=== PATIENT | female | born 1955 | race Caucasian/White ===

== ENCOUNTER 2018-03-21 19:02 | Inpatient (IN) | payer OTHER ==
--- OUTSIDE RECORDS SUMMARY | 2018-03-21 19:05 | XMS REPORT | Summary of Care ---
:1955 Author Name LETY Emery ADEEL Address Unavailable Unavailable , Care Team Providers Name Role Phone JOANN Thopmson, MARYBETH Unavailable Unavailable CATHRYN [place], [place] Unavailable Unavailable MARCELO Thompson, CARMELO Unavailable Unavailable REYES GREENE, KANDACE SINGH Unavailable Unavailable Unavailable Unavailable Unavailable Functional Status Name Dates Details Functional status health issues are not documented Status: Name Dates Details Cognitive status health issues are not documented Status: Problems Name Dates Details Acute deep vein thrombosis of lower extremity (453.40, I82.409) Status: Active Joint pain of lower extremity (719.48, M25.50) Status: Active Urinary tract infection (599.0, N39.0) Status: Active Urinary tract infection (599.0, N39.0) Status: Active Colovesical fistula (596.1, N32.1) Status: Active Edema (782.3, R60.9) Status: Active Lumbar radiculopathy (724.4, M54.16) Status: Active Staph infection (041.10, B95.8) Status: Active Parathyroid adenoma (227.1, D35.1) Status: Active Hyperparathyroidism (252.00, E21.3) Status: Active Diabetes mellitus type 2, uncontrolled (250.02, E11.65) Status: Active Hypothyroidism, postsurgical (244.0, E89.0) Status: Active Hypercalcemia (275.42, E83.52) Status: Active Depressive disorder (311, F32.9) Status: Active Anxiety (300.00, F41.9) Status: Active Dietary iron deficiency anemia (280.1, D50.8) Status: Active Chronic kidney disease, stage IV (severe) (585.4, N18.4) Status: Active Pain in joint involving upper arm (719.42, M25.529) Status: Active Vitamin D insufficiency (268.9, E55.9) Status: Active Bilateral hand pain (729.5, M79.641) Status: Active Gout (274.9, M10.9) Status: Active Insomnia (780.52, G47.00) Status: Active End stage renal disease (585.6, N18.6) Status: Active Pre-op exam (V72.84, Z01.818) Status: Active Medications Name Dates Details Lisinopril 40 MG Oral Tablet TAKE 1 TABLET DAILY. Quantity: 90 Refills: 3 [place] LOCKETT M.D. Start : 25-Jun-2008 Active Furosemide 80 MG Oral Tablet TAKE 1 TABLET DAILY. Quantity: 90 Refills: 3 OH LOCKETT M.D. Start : 24-Oct-2009 Active MetOLazone 5 MG Oral Tablet TAKE ONE TABLET BY MOUTH ONCE DAILY Quantity: 30 Refills: 5 OH LOCKETT M.D. Start : 06-Aug-2011 Active DilTIAZem HCl ER Coated Beads 240 MG Oral Capsule Extended Release 24 Hour TAKE 1 CAPSULE DAILY. Quantity: 30 Refills: 3 OH LOCKETT M.D. Start : 27-Aug-2011 Active GlyBURIDE 5 MG Oral Tablet Take 10mg twice a day Quantity: 90 Refills: 3 CARMELO ROBERTSON M.D. Start : 27-Aug-2011 Active Escitalopram Oxalate 20 MG Oral Tablet TAKE 1 TABLET DAILY. Quantity: 90 Refills: 3 OH LOCKETT M.D. Start : 04-Mar-2012 Active ALPRAZolam 1 MG Oral Tablet TAKE 1 TABLET DAILY. Quantity: 30 Refills: 0 OH LOCKETT M.D. Start : 10-Nov-2012 Active Levothyroxine Sodium 112 MCG Oral Tablet TAKE 1 TABLET DAILY DIRECTED. Quantity: 90 Refills: 3 CARMELO ROBERTSON M.D. Start : 28-Feb-2015 Active Allopurinol 100 MG Oral Tablet TAKE ONE TABLET BY MOUTH DAILY Quantity: 30 Refills: 3 [place] LOCKETT M.D. Start : 14-Jul-2017 Active TraZODone HCl - 50 MG Oral Tablet TAKE 1 TABLET AT BEDTIME NEEDED FOR SLEEP. Quantity: 30 Refills: 0 OH LOCKETT M.D. Start : 16-Oct-2017 Active Gabapentin 100 MG Oral Capsule Refills: 0 Active Allergies and Adverse Reactions Name Dates Details No Known Drug Allergies (Allergy) Status: Active Past Medical History Name Dates Details History of chronic kidney disease (V13.09, Z87.448) Status: Resolved History of Diverticulitis (562.11, K57.92) Status: Resolved History of goiter (V12.29, Z86.39) Status: Resolved History of Celeste thyroiditis (V12.29, Z86.39) Status: Resolved History of hypertension (V12.59, Z86.79) Status: Resolved History of type 2 diabetes mellitus (V12.29, Z86.39) Status: Resolved Procedures Procedure Dates Details [[facility]] HEPATITIS B CORE AB TOTAL Date: 09-Nov-2017 [[facility]] HEPATITIS PANEL Date: 09-Nov-2017 [[facility]] HEPATITIS B SURFACE ANTIBODY (QUANT) Date: 09-Nov-2017 History of Thyroid Surgery Substernal Thyroidectomy Completed History of Thyroid Surgery Luiz-Thyroidectomy Left Lobe Completed History of Colostomy Completed History of Cholecystectomy Completed History of Hernia Repair Completed History of Laminectomy Lumbar Completed Immunization Name Dates Details Immunizations not documented Family History Name Dates Details Family history of thyroid disease (V18.19, Z83.49) Status: Active Name Dates Details Family history of chronic kidney disease (V18.69, Z84.1) Status: Active Name Dates Details Family history of type 2 diabetes mellitus (V18.0, Z83.3) Status: Active Name Dates Details Family history of chronic kidney disease (V18.69, Z84.1) Status: Active Name Dates Details Family history of type 2 diabetes mellitus (V18.0, Z83.3) Status: Active Social History Name Dates Details - Status: Name Dates Details Never smoker Vital Signs Date Test Result Details [id number] BP Systolic 101 mm[Hg] Status: Comments: Location: RUE; Position: Sitting BP Diastolic 66 mm[Hg] Status: Comments: Location: RUE; Position: Sitting Height 62 in Status: Weight 210.25 lb Status: Body Mass Index Calculated 38.46 kg/m2 Status: Body Surface Area Calculated 1.95 m2 Status: Temperature 97.7 f Status: Comments: Method: Oral Heart Rate 97 /min Status: Comments: Location: R Brachial Artery; Quality: Normal Respiration Rate 18 /min Status: Comments: Quality: Normal Results Date Description Value Details Results not documented Plan of Care Name Dates Details Planned Observations Planned Goals not documented Planned Encounters Appointment; JOANN, MARYBETH, M.D. On: 27-Dec-2017 9:00 Interventions Provided PlanMs. Yuriy has been seen and evaluated for permanent HD access.Patient will get Bilateral upper extremity Vein mapping.Patient to F/U in 2 weeks to discuss treatment plan and vascular study results. Instructions Name Dates Details Instructions not documented Encounters Appointment; OH LOCKETT M.D. On: 06-Feb-2016 14:45 Encounter Diagnosis: Problem not documented Appointment; [place] LOCKETT M.D. On: 07-May-2016 14:45 Encounter Diagnosis: Problem not documented Appointment; OH LOCKETT M.D. On: 11-Jun-2016 14:15 Encounter Diagnosis: Problem not documented Appointment; [place] LOCKETT M.D. On: 03-Sep-2016 14:30 Encounter Diagnosis: Problem not documented Appointment; FEDERICO CASTRO M.D. On: 15-Sep-2016 14:00 Encounter Diagnosis: Problem not documented Appointment; [place] LOCKETT M.D. On: 31-Dec-2016 14:30 Encounter Diagnosis: Problem not documented Appointment; OH LOCKETT M.D. On: 04-Mar-2017 14:15 Encounter Diagnosis: Problem not documented Appointment; OH LOCKETT M.D. On: 08-Jul-2017 14:45 Encounter Diagnosis: Problem not documented Appointment; OH LOCKETT M.D. On: 14-Oct-2017 15:00 Encounter Diagnosis: Problem not documented Appointment; MARYBETH DAVID M.D. On: 06-Dec-2017 10:45 Encounter Diagnosis: Problem not documented Appointment; TENISHA ELLISON On: 09-Dec-2017 12:00 Encounter Diagnosis: Problem not documented Appointment; MARYBETH DAVID M.D. On: 27-Dec-2017 9:00 Encounter Diagnosis: Problem not documented
--- OUTSIDE RECORDS SUMMARY | 2018-03-21 19:05 | XMS REPORT | Continuity of Care Document ---
:1955 Author Organization Interface Problems Problem Status Onset Date Classification Date Comments Source Reported Medications Medication Details Route Status Patient Ordering Order Source Instructions Provider Date Allergies, Adverse Reactions, Alerts Substance Category Reaction Severity Reaction Status Date Comments Source type Reported Immunizations Immunization Date Given Site Status Last Updated Comments Source Results Order Results Value Reference Date Interpretation Comments Source Name Range Vital Signs Vital Sign Value Date Comments Source Encounters Location Location Encounter Encounter Reason Attending ADM DC Status Source Details Type Number For Provider Date Date Visit Outpatient [id number] [place] 10[facility]14 [facility] [place] [facility] [id number] [facility] [place] Out[facility] [id number] [place] 12[place]16 [facility] [place] Outpatient [id number] [place] 12/30 Active [facility] [place] Outpatient [id number] [place] 01/19 Active [facility] [place] [facility] [id number] [facility]/03 Active [facility] [place] Outpatient [id number] [place] 02/24 [facility] [place] Procedures Procedure Code Date Perfomer Comments Source
[2018-03-21] MEDS ORDERED: ACETAMINOPHEN 325 MG TABLET ONE (19:57)
[2018-03-21] MEDS ORDERED: VANCOMYCIN 1 GM/250 ML BAG ONE (19:57)
[2018-03-21] MEDS ORDERED: PIPER/TAZO/NS 3.375gm 3.375 GM/100 ML BAG ONE (19:57)
[2018-03-21] MEDS ORDERED: NA CHLORIDE 0.9% 2,000 ML ONE (19:57)
[2018-03-21 20:12] LABS: Absolute Lymphocytes (CBC) 0.5 K/uL (0.7-4.9); Eosinophils % 0.1 % (0-4.4); MPV 8.4 fL (7.6-11.3); RBC Red Blood Cell Count 3.59 M/uL (3.86-4.86)
[2018-03-21 20:15] LABS: Absolute Monocytes 1.8 K/uL (0.1-1.3); Absolute Neutrophil 24.4 K/uL (1.8-8.0); Basophils % 0.2 % (0-1.3); Hematocrit 32.6 % (36.0-45.0); Lymphocytes % 1.8 % (15.3-44.8); MCH 29.8 pg (27.0-35.0); MCV 90.7 fL (80-100); Monocytes % 6.8 % (3.3-12.3)
[2018-03-21 20:16] LABS: Protime INR 1.64
[2018-03-21 20:32] LABS: Albumin 2.5 g/dL (3.4-5.0); Bilirubin Direct 0.1 mg/dL (0-0.2); Bilirubin Total 0.4 mg/dL (0.2-1.0); Potassium 3.7 mmol/L (3.5-5.1); Protein, Total 7.5 g/dL (6.4-8.2)
[2018-03-21 20:35] LABS: Blood Morphology Comment NOT SEEN (NOT SEEN); Platelet Estimate ADEQ
--- NOTE | 2018-03-21 21:02 | ER ---
Nurse's Notes [facility] Name: Danielle Yan Age: 62 yrs Sex: Female : 1955 Arrival Date: 03/21/2018 Time: 19:06 Bed 6 Private MD: Tomer Flores R Diagnosis: Severe sepsis without septic shock Presentation: 03/21 19:34 Presenting complaint: Patient states: she just completed dialysis and they told her to bb come to the ED because she has temperature, cough, chills, pt actively vomiting in triage. Transition of care: patient was not received from another setting of care. Onset of symptoms was March 14, 2018. Risk Assessment: Do you want to hurt yourself or someone else? Patient reports no desire to harm self or others. Initial Sepsis Screen: Does the patient meet any 2 criteria? Temp <36.0*C (96.8*F)) or > 38.3*C (100.4*F). HR > 90 bpm. Yes Does the patient have a suspected source of infection? Yes: Other: cough. Care prior to arrival: None. 19:34 Method Of Arrival: Wheelchair bb 19:34 Acuity: [place] 2 bb Triage Assessment: 19:37 General: Appears uncomfortable. Respiratory: Reports shortness of breath Onset: The ea symptoms/episode began/occurred gradually, the patient has mild shortness of breath. Historical: - Allergies: 19:41 No Known Allergies; bb - Home Meds: 19:41 Cartia XT 240 mg Oral cp24 1 cap once daily [Active]; escitalopram oxalate 20 mg Oral bb tab 1 tab once daily [Active]; gabapentin 100 mg oral cap [Active]; levothyroxine 112 mcg tab 2 tabs once daily [Active]; glimepiride 4 mg Oral tab 1 tab once daily [Active]; metolazone 5 mg Oral tab 1 tab once daily [Active]; Lasix 80 mg Oral tab 1 tab once daily [Active]; probenecid/colchichine [Active]; parsabiv 2.5 mg 3 x week post dialysis [Active]; Xanax 0.5 mg Oral tab 1 tab twice a day [Active]; allopurinol 100 mg Oral tab 1 tab once daily [Active]; - PMHx: 19:41 Diabetes - NIDDM; Gout; Hypertension; Hypothyroidism; PERIPHERAL NEUROPATHY; Renal bb Disease; - Immunization history:: Adult Immunizations up to date. - Social history:: Smoking status: Patient/guardian denies using tobacco. - Ebola Screening: : No symptoms or risks identified at this time. Screenin:12 Abuse screen: Denies threats or abuse. Nutritional screening: No deficits noted. ea Tuberculosis screening: No symptoms or risk factors identified. Fall Risk IV access (20 points). Assessment: 19:37 General: Appears uncomfortable, Behavior is cooperative, appropriate for age. Pain: ea Denies pain. Neuro: Level of Consciousness is awake, alert, obeys commands, Oriented to person, place, time, situation. Cardiovascular: Heart tones S1 S2 present Patient's skin is warm and dry. Respiratory: Airway is patent Respiratory effort is even, labored, Respiratory pattern is regular, symmetrical, Breath sounds are diminished bilaterally. in left posterior lower lobe, right posterior middle lobe and right posterior lower lobe Parent/caregiver reports the patient having shortness of breath cough that is non-productive, hacking, persistent. GI: Abdomen is round distended, Bowel sounds present X 4 quads. Abd is non tender X 4 quads. : No signs and/or symptoms were reported regarding the genitourinary system. EENT: No signs and/or symptoms were reported regarding the EENT system. Derm: Skin is clammy, Skin is flushed, Skin temperature is warm. Musculoskeletal: Circulation, motion, and sensation intact. 20:15 Reassessment: Patient and/or family updated on plan of care and expected duration. Pain ea level reassessed. Pt alert and oriented x 3. Respirations even and unlabored. Chest expansions even and symmetrical. Pt on O2 at 2 L , pt remains hypotensive, physician aware. Pt reports her bp is always low after dialysis. Family remains at bedside at this time. 22:40 Reassessment: Patient and/or family updated on plan of care and expected duration. Pain ea level reassessed. Pt alert and oriented x 3. Respirations even and unlabored. Chest expansions even and symmetrical. O2 at 2L per n/c tolerating well. Family remains at bedside. 23:34 Reassessment: Patient and/or family updated on plan of care and expected duration. Pain ea level reassessed. Pt alert and oriented x 3 respirations even and unlabored, chest expansions even and symmetrical. No s/s of pain or discomfort noted at this time. 23:36 Cardiovascular: Rhythm is sinus rhythm. ea 03/22 00:25 Reassessment: Patient and/or family updated on plan of care and expected duration. Pain ea level reassessed. Dr. Carrera at bedside updating pt on plan of care. 00:25 Reassessment: Patient and/or family updated on plan of care and expected duration. Pain ea level reassessed. Pt alert and oriented x 3. Respirations even and unlabored, chest expansions even and symmetrical. No s/s of pain or discomfort noted at this time. 01:10 Reassessment: Patient and/or family updated on plan of care and expected duration. Pain ea level reassessed. Patient is alert, oriented x 3, equal unlabored respirations, skin warm/dry/pink. Pt taken via stretcher accompanied by nurse to ICU on third. Bedside report given to receiving nurse. Pt alert and oriented x 4 respirations even and unlabored. Chest expansions even and symmetrical. Vital Signs: 03/21 19:41 BP 95 / 52; Pulse 124; Resp 20 S; Temp 102.8(O); Pulse Ox 94% on R/A; Weight 92.08 kg bb (R); Height 5 ft. 2 in. (157.48 cm) (R); Pain 0/10; 20:40 BP 93 / 57; Pulse 109; Resp 20; Temp 99.7(O); Pulse Ox 97% ; ea 21:20 BP 96 / 54 RA (man/); Pulse 99; Resp 20; Temp 99(O); Pulse Ox 97% on 2 lpm NC; ea 22:33 BP 92 / 58; Pulse 97; Resp 18; Temp 98.7(O); Pulse Ox 98% on 2 lpm NC; Pain 0/10; ea 23:10 BP 95 / 53; Pulse 97; Resp 20 S; Pulse Ox 98% on 2 lpm NC; Pain 0/10; ea 03/22 00:36 BP 96 / 54; Pulse 93; Resp 18; Temp 98.6; Pulse Ox 97% on 2 lpm NC; Pain 0/10; ea 03/21 19:41 Body Mass Index 37.13 (92.08 kg, 157.48 cm) bb ED Course: 03/21 19:06 Patient arrived in ED. mr 19:06 Tomer Flores MD is Private Physician. mr 19:24 Sukh Hayden MD is Attending Physician. gs 19:25 Latasha Alfredo, HENNY is Primary Nurse. ea 19:36 Triage completed. bb 19:37 Patient has correct armband on for positive identification. Bed in low position. Call ea light in reach. Side rails up X2. 19:41 Arm band placed on Patient placed in an exam room, on a stretcher, on playground monitor, bb on pulse oximetry. Family accompanied patient. 20:12 Inserted saline lock: 20 gauge in right antecubital area, using aseptic technique. ea Blood collected. 20:25 X-ray completed. Portable x-ray completed in exam room. Patient tolerated procedure jr1 well. 20:27 Chest Single View XRAY In Process Unspecified. EDMS 20:47 Notified ED physician of a critical lab result(s). lactate 2.5. fc 20:[address] nj 21:01 Ruthie Estes MD is Hospitalizing Provider. gs 21:07 CT completed. Patient tolerated procedure well. Patient moved back from CT. nj 21:08 CT Chest Wo Con In Process Unspecified. EDMS 21:[address] vm2 22:02 CT completed. Patient tolerated procedure well. Patient moved back from CT. 2 23:36 No provider procedures requiring assistance completed. Patient admitted, IV remains in ea place. Administered Medications: 19:55 Drug: NS 0.9% 1500 ml Route: IV; Rate: 1 bolus; Site: right antecubital; bb 23:12 Follow up: Response: No adverse reaction; IV Status: Completed infusion; IV Intake: ea 1500ml 20:00 Drug: Tylenol 650 mg Route: PO; bb 22:59 Follow up: Response: No adverse reaction; Marked relief of symptoms ea 20:05 Drug: Zosyn 3.375 grams Route: IVPB; Infused Over: 60 mins; Site: right antecubital; bb 21:05 Follow up: Response: No adverse reaction; IV Status: Completed infusion ea 21:04 Drug: vancoMYCIN 1 grams Route: IVPB; Infused Over: 2 hrs; Site: right antecubital; ea 23:12 Follow up: Response: No adverse reaction; IV Status: Completed infusion; IV Intake: ea 250ml Intake: 23:12 IV: 250ml; Total: 250ml. ea 23:12 IV: 1500ml; Total: 1750ml. ea Outcome: 21:02 Decision to Hospitalize by Provider. gs 22:00 Instructed on the need for admit, Demonstrated understanding of instructions. ea 03/22 01:10 Admitted to ICU accompanied by nurse, via stretcher, room 2, with oxygen, on monitor, ea with chart, Report called to Receiving nurse in ICU on third floor. Condition: stable 01:31 Patient left the ED. ea Signatures: Dispatcher [employer] EDFL Princess Ferro, Edwige 1 Clotilde Gonzalez, RN RN Jessica Haynes RN RN Iftikhar Smith Victoria vm2 Antunez, Elena, RN RN ea Starr, MD MD valentina Luz Corrections: (The following items were deleted from the chart) 03/21 19:40 19:37 Respiratory: Airway is patent Respiratory effort is even, labored, Respiratory ea pattern is regular, symmetrical, Breath sounds are diminished bilaterally. in left posterior lower lobe, right posterior middle lobe and right posterior lower lobe ea 22:41 19:39 General: Reports fever for ea ea 03/22 01:30 00:36 BP 96 / 54; Pulse 93bpm; Resp 18bpm; Pulse Ox 97% 2 lpm Nasal Cannula; Pain 0/10; ea ea
--- NOTE | 2018-03-21 21:02 | EDPHYS ---
Physician Documentation [facility] Name: Danielle Yan Age: 62 yrs Sex: Female : 1955 Arrival Date: 03/21/2018 Time: 19:06 Bed 6 Private MD: Tomer Flores R ED Physician Sukh Hayden HPI: 03/21 20:57 This 62 yrs old Female presents to ER via Wheelchair with complaints of gs Cough, Breathing Difficulty. 20:57 Onset: The symptoms/episode began/occurred 3 day(s) ago. Modifying factors: there are gs no obvious modifying factors. Associated signs and symptoms: Pertinent positives: altered mental status,\E\ chills, cough, decreased appetite. Severity of symptoms: At their worst the symptoms were severe in the emergency department the symptoms are unchanged. The patient has not experienced similar symptoms in the past. Historical: - Allergies: 19:41 No Known Allergies; bb - Home Meds: 19:41 Cartia XT 240 mg Oral cp24 1 cap once daily [Active]; escitalopram oxalate 20 mg Oral bb tab 1 tab once daily [Active]; gabapentin 100 mg oral cap [Active]; levothyroxine 112 mcg tab 2 tabs once daily [Active]; glimepiride 4 mg Oral tab 1 tab once daily [Active]; metolazone 5 mg Oral tab 1 tab once daily [Active]; Lasix 80 mg Oral tab 1 tab once daily [Active]; probenecid/colchichine [Active]; parsabiv 2.5 mg 3 x week post dialysis [Active]; Xanax 0.5 mg Oral tab 1 tab twice a day [Active]; allopurinol 100 mg Oral tab 1 tab once daily [Active]; - PMHx: 19:41 Diabetes - NIDDM; Gout; Hypertension; Hypothyroidism; PERIPHERAL NEUROPATHY; Renal bb Disease; - Immunization history:: Adult Immunizations up to date. - Social history:: Smoking status: Patient/guardian denies using tobacco. - Ebola Screening: : No symptoms or risks identified at this time. ROS: 20:57 All other systems are negative. gs Exam: 20:57 Head/Face: Normocephalic, atraumatic. Eyes: Pupils equal round and reactive to light, gs extra-ocular motions intact. Lids and lashes normal. Conjunctiva and sclera are non-icteric and not injected. Cornea within normal limits. Periorbital areas with no swelling, redness, or edema. ENT: Nares patent. No nasal discharge, no septal abnormalities noted. Tympanic membranes are normal and external auditory canals are clear. Oropharynx with no redness, swelling, or masses, exudates, or evidence of obstruction, uvula midline. Mucous membranes moist. Neck: Trachea midline, no thyromegaly or masses palpated, and no cervical lymphadenopathy. Supple, full range of motion without nuchal rigidity, or vertebral point tenderness. No Meningismus. Chest/axilla: Normal chest wall appearance and motion. Nontender with no deformity. No lesions are appreciated. 20:57 Abdomen/GI: Soft, non-tender, with normal bowel sounds. No distension or tympany. No guarding or rebound. No evidence of tenderness throughout. Back: No spinal tenderness. No costovertebral tenderness. Full range of motion. Skin: Warm, dry with normal turgor. Normal color with no rashes, no lesions, and no evidence of cellulitis. MS/ Extremity: Pulses equal, no cyanosis. Neurovascular intact. Full, normal range of motion. Neuro: Awake and alert, GCS 15, oriented to person, place, time, and situation. Cranial nerves II-XII grossly intact. Motor strength 5/5 in all extremities. Sensory grossly intact. Cerebellar exam normal. Normal gait. 20:57 Constitutional: The patient appears alert, awake, in obvious distress, severely distressed. 20:57 Cardiovascular: Rate: tachycardic, Rhythm: regular, Pulses: no pulse deficits are appreciated, Heart sounds: normal. 20:57 Cardiovascular: Pulses: thready. 20:57 Respiratory: mild respiratory distress is noted, Respirations: tachypnea, Breath sounds: rhonchi, that are mild, are scattered. Vital Signs: 19:41 BP 95 / 52; Pulse 124; Resp 20 S; Temp 102.8(O); Pulse Ox 94% on R/A; Weight 92.08 kg bb (R); Height 5 ft. 2 in. (157.48 cm) (R); Pain 0/10; 20:40 BP 93 / 57; Pulse 109; Resp 20; Temp 99.7(O); Pulse Ox 97% ; ea 21:20 BP 96 / 54 RA (man/); Pulse 99; Resp 20; Temp 99(O); Pulse Ox 97% on 2 lpm NC; ea 22:33 BP 92 / 58; Pulse 97; Resp 18; Temp 98.7(O); Pulse Ox 98% on 2 lpm NC; Pain 0/10; ea 23:10 BP 95 / 53; Pulse 97; Resp 20 S; Pulse Ox 98% on 2 lpm NC; Pain 0/10; ea 03/22 00:36 BP 96 / 54; Pulse 93; Resp 18; Temp 98.6; Pulse Ox 97% on 2 lpm NC; Pain 0/10; ea 03/21 19:41 Body Mass Index 37.13 (92.08 kg, 157.48 cm) bb MDM: 03/21 19:41 Patient medically screened. gs 20:57 Differential diagnosis: viral Infection, bacterial infection, pneumonia sepsis, septic gs shock. Data reviewed: vital signs, nurses notes. Response to treatment: the patient's symptoms have mildly improved after treatment, and as a result, I will admit patient. Physician consultation: Ruthie Estes MD and will see patient in ED. 03/21 19:43 Order name: Basic Metabolic Panel; Complete Time: 20:36 03/21 19:43 Order name: Blood Culture Adult (2) gs 03/21 19:43 Order name: CBC with Diff; Complete Time: 20:36 03/21 19:43 Order name: Lactate; Complete Time: 20:50 03/21 19:43 Order name: LFT's; Complete Time: 20:36 03/21 19:43 Order name: Lipase; Complete Time: 20:36 03/21 19:43 Order name: Procalcitonin; Complete Time: 20:50 03/21 19:43 Order name: Protime (+inr); Complete Time: 20:36 03/21 19:43 Order name: Troponin (emerg Dept Use Only); Complete Time: 20:36 03/21 19:43 Order name: Chest Single View XRAY; Complete Time: 10:15 03/21 20:19 Order name: Manual Differential; Complete Time: 20:36 EDMS 03/21 20:36 Order name: CT Chest Wo Con; Complete Time: 10:15 03/21 21:24 Order name: CT Abd/Pelvis - W/Contrast tw4 03/21 19:43 Order name: Accucheck; Complete Time: 21:00 03/21 19:43 Order name: Cardiac monitoring; Complete Time: 20:12 03/21 19:43 Order name: EKG - Nurse/Tech; Complete Time: 20:12 03/21 19:43 Order name: IV Saline Lock - Large Bore; Complete Time: 20:16 03/21 19:43 Order name: Labs collected and sent; Complete Time: 20:16 03/21 19:43 Order name: O2 Per Protocol; Complete Time: 20:16 03/21 19:43 Order name: O2 Sat Monitoring; Complete Time: 20:16 gs Administered Medications: 19:55 Drug: NS 0.9% 1500 ml Route: IV; Rate: 1 bolus; Site: right antecubital; bb 23:12 Follow up: Response: No adverse reaction; IV Status: Completed infusion; IV Intake: ea 1500ml 20:00 Drug: Tylenol 650 mg Route: PO; bb 22:59 Follow up: Response: No adverse reaction; Marked relief of symptoms ea 20:05 Drug: Zosyn 3.375 grams Route: IVPB; Infused Over: 60 mins; Site: right antecubital; bb 21:05 Follow up: Response: No adverse reaction; IV Status: Completed infusion ea 21:04 Drug: vancoMYCIN 1 grams Route: IVPB; Infused Over: 2 hrs; Site: right antecubital; ea 23:12 Follow up: Response: No adverse reaction; IV Status: Completed infusion; IV Intake: ea 250ml Disposition: 03/21/18 21:02 Hospitalization ordered by Ruthie Estes for Inpatient Admission. Preliminary diagnosis is Severe sepsis without septic shock. - Bed requested for Intensive Care Unit. - Status is Inpatient Admission. ea - Condition is Stable. - Problem is new. - Symptoms have improved. UTI on Admission? No Critical care time excluding procedures: 20:57 Critical care time: Bedside Care: 10 minutes, Consultation: 10 minutes, Family gs Intervention: 10 minutes. Total time: 30 minutes Signatures: Dispatcher [employer] Jessica Dumont RN RN bb Thompson, Moriah mt Antunez, Elena, RN RN ea Starr, Gregory, MD MD gs Corrections: (The following items were deleted from the chart) 22:21 21:02 Hospitalization Ordered by Ruthie Estes MD for Inpatient Admission. Preliminary mt diagnosis is Severe sepsis without septic shock. Bed requested for Intensive Care Unit. Status is Inpatient Admission. Condition is Stable. Problem is new. Symptoms have improved. UTI on Admission? No. gs 03/22 01:31 03/21 22:21 03/21/2018 21:02 Hospitalization Ordered by Ruthie Estes MD for Inpatient ea Admission. Preliminary diagnosis is Severe sepsis without septic shock. Bed requested for Intensive Care Unit. Status is Inpatient Admission. Condition is Stable. Problem is new. Symptoms have improved. UTI on Admission? No. mt
--- NOTE | 2018-03-21 21:31 | RAD REPORT ---
EXAM DESCRIPTION: CT - Thorax Wo Con - 03/21/2018 9:08 pm CLINICAL HISTORY: sob and cough COMPARISON: 2011 TECHNIQUE: Computed axial tomography of the chest was obtained. Contrast was not requested. All CT scans are performed using dose optimization technique as appropriate and may include automated exposure control or mA/KV adjustment according to patient size. FINDINGS: The evaluation of mediastinum, alexandre and vessels is limited secondary to lack of IV contras t administration. The lungs are essentially clear. A 5.9 x 2.2 centimeter low-density mass is present within the aorticopulmonary window. The Hounsfield unit equals 3. It is minimally decreased in size. A pleural effusion is not present. A pericardial effusion is not seen. Portal vein air is present. Air is also visualized within other splanchnic veins of the upper abdomen . IMPRESSION: Portal vein and splanchnic vein air may indicate bowel ischemia No acute abnormality involving the chest is seen The examination was discussed with Dr. Razo in the emergency room at 9:20 p.m. March 21, 2008 pain
--- NOTE | 2018-03-21 21:42 | RAD REPORT ---
EXAM DESCRIPTION: Lisandrat Single View03/21/2018 8:28 pm CLINICAL HISTORY: Shortness of breath COMPARISON: 2014 FINDINGS: The lungs appear clear of acute infiltrate. The heart is normal size. A central venous catheter has its tip in the superior vena cava. A left mediastinal mass is unchanged. CT demonstrates this to likely represent a benign cyst
[2018-03-22] MEDS ORDERED: MAGNESIUM HYDROXIDE 8% 30 ML PO PRN (00:20)
[2018-03-22] MEDS ORDERED: ACETAMINOPHEN 500 MG TAB PO PRN (00:20)
[2018-03-22] MEDS ORDERED: FENTANYL CITR 100 MCG/2 ML IV PRN (00:36)
[2018-03-22] MEDS ORDERED: NA CHLORIDE 0.9% 1,000 ML IV SCH (01:00)
[2018-03-22] MEDS: METRONIDAZOLE 500mg IVPB 500 MG/100 ML BAG IV SCH ×2 (01:47→09:13)
[2018-03-22 01:52] VITALS: BMI 37.8
[2018-03-22] MEDS ORDERED: Levofloxacin 250mg IV 250 MG/50 ML BAG IV SCH (03:00)
[2018-03-22 05:52] LABS: Blood Gas Oxyhemoglobin 96.7 % (94-97)
--- NOTE | 2018-03-22 06:58 | P.HP ---
Certification for Inpatient Patient admitted to: Inpatient With expected LOS: >2 Midnights Patient will require the following post-hospital care: None Practitioner: I am a practitioner with admitting privileges, knowledge of patient current condition, hospital course, and medical plan of care. Services: Services provided to patient in accordance with Admission requirements found in Title 42 Section 412.3 of the Code of Federal Regulations Patient History Date of Service: 03/21/18 Reason for admission: Sepsis; cough; fever History of Present Illness: Patient is a 62-year-old female has a history of factor V Leiden, end-stage renal disease, type 2 diabetes, hypertension, history of colovesical fistula status post repair who presented to the emergency room with fever, cough, and congestion. Patient was getting hemodialysis in her blood pressure was found to be low. She was sent to the emergency room for further evaluation. In the emergency room she was found have a leukocytosis as well as a lactic acidosis. Initial feeling was that patient may have a pneumonia. Patient had a CT of the chest which did not reveal an infiltrate but did reveal air within the portal venous system. This was followed by a CT of the abdomen and pelvis. This was read by our [employer] service(radiologist thatprovide coverage) as a ventral hernia and questionable colitis around the transverse segment. Patient does not have any abdominal pain. Patient denies any nausea or vomiting. Patient did have some diarrhea within the last 24 hr but denies any blood or pain. Spoke with General surgery and at this time will continue with IV antibiotics and reassess in the next 24-48 hrs. Will monitor in the intensive care unit and will get Nephrology consultation as well as GI evaluation. Patient is on Eliquis because of her factor 5. In case of surgery we may want switch this to a heparin drip. Will speak with Nephrology regarding the plan of care. Allergies No Known Allergies Allergy (Verified 03/22/18 01:54) Home Medications: Alprazolam [Xanax] 0.5 mg PO BID 05/03/12 Escitalopram Oxalate [Lexapro] 20 mg PO DAILY 05/03/12 Metolazone [Zaroxolyn] 5 mg PO DAILY 05/03/12 Allopurinol 100 mg PO DAILY 03/22/18 Apixaban [Eliquis *] 1 tab PO DAILY 03/22/18 Colchicine/Probenecid [Probenecid-Colchicine Tabs] 1 tab PO DAILY 03/22/18 Diltiazem HCl [Cartia Xt] 240 mg PO DAILY 03/22/18 Etelcalcetide Hydrochloride [Parsabiv] 2.5 mg IV M,W,F 03/22/18 Furosemide 120 mg PO DAILY 03/22/18 Gabapentin [Neurontin*] 300 mg PO BID 03/22/18 Glimepiride [Amaryl] 8 mg PO DAILY 03/22/18 Levothyroxine [Synthroid] 224 mcg PO [id number] 03/22/18 - Past Medical/Surgical History Has patient received pneumonia vaccine in the past: Yes Diabetic: Yes -: HD -: NIDDM -: HTN -: Gout -: Hypothyroid -: Peripheral neuropathy -: BLE DVT 2010 and 2011 -: Renal Disease -: Thyroidectomy -: Choleycystectomy -: Carpal Tunnel -: Laminectomy -: Umbilical Hernia repair x2 -: Partial COlectomy- Bladder repair for rectovesical fistula -: Colostomy (and reversal) -: Spinal FUsion, Heel spurs BLE - Family History Mother Medical History: Heart disease, Hypertension, Diabetes, Kidney disease Sister Medical History: Hypertension - Social History Smoking Status: Never smoker Alcohol use: No CD- Drugs: No Caffeine use: Yes Place of Residence: Home Review of Systems 10-point ROS is otherwise unremarkable Physical Examination - Vital Signs Temperature: 98 F Blood Pressure: 110/56 Pulse: 90 Respirations: 19 Pulse Ox (%): 98 - Physical Exam General: Alert, In no apparent distress, Oriented x3 HEENT: Atraumatic, PERRLA, Mucous membr. moist/pink, EOMI, Sclerae nonicteric Neck: Supple, 2+ carotid pulse no bruit, No LAD, Without JVD or thyroid abnormality Respiratory: Clear to auscultation bilaterally, Normal air movement Cardiovascular: Regular rate/rhythm, Normal S1 S2, No murmurs Gastrointestinal: Normal bowel sounds, Soft and benign, Non-distended, No tenderness Musculoskeletal: No clubbing, No swelling, No tenderness Integumentary: No rashes Neurological: Normal gait, Normal speech, Normal tone, Sensation intact, Cranial nerves 3-12 intact, Normal affect, Abnormal strength Lymphatics: No axilla or inguinal lymphadenopathy - Studies Laboratory Data (last 24 hrs) 03/21/18 20:00: PT 19.4 H, INR 1.64 03/21/18 20:00: WBC 26.7 H*, Hgb 10.7 L, Hct 32.6 L, Plt Count 313 03/21/18 20:00: Sodium 134 L, Potassium 3.7, BUN 31 H, Creatinine 3.40 H, Glucose 237 H, Total Bilirubin 0.4, AST 15, ALT 20, Alkaline Phosphatase 160 H, Lipase 70 L Assessment & Plan - Problems (Diagnosis) (1) End stage renal disease Onset Date: 03/22/18 Status: Acute (2) Hypertension Onset Date: 03/22/18 Status: Acute (3) Type 2 diabetes mellitus Onset Date: 03/22/18 Status: Acute (4) Status post partial resection of colon Onset Date: 03/22/18 Status: Acute (5) Leukocytosis Onset Date: 03/22/18 Status: Acute (6) Lactic acidosis Onset Date: 03/22/18 Status: Acute (7) Factor V Leiden Onset Date: 03/22/18 Status: Acute (8) Ischemic colitis Status: Acute (9) Ventral hernia Status: Acute - Plan Plan: 1. Continue with gentle IV hydration 2. Continue with IV antibiotics 3. Continue with meds for upper respiratory infection 4. NPO 5. GI & general surgery consultation; 6. Serial H&H, and we will monitor CBC, BMP, LFTs, procalcitonin, repeat lactate in 2 hr, and lipase along with electrolytes. 7. GI and DVT prophylaxis Discharge Plan: Home Plan to discharge in: Greater than 2 days - Advance Directives Does patient have a Living Will: No Does patient have a Durable POA for Healthcare: No - Code Status/Comfort Care Code Status Assessed: Yes Code Status: Full Code Critical Care: No Time Spent Managing PTS Care (In Minutes): 55
--- NOTE | 2018-03-22 07:10 | P.CNS ---
Date of Consult: 03/22/18 PC: This 62-year-old female presented to the emergency room with 3 day history of cough for diagnosis and treatment. HPC: Patient option feeling well for last 2 days. Has had a productive cough. States that she has not had any abdominal pain, is a dialysis patient and tolerated it well the other day. PMH: Diabetes, gout, end-stage renal disease hypertension PSHx: Previous exploratory laparotomies and hernia repairs SOC: No known allergies, medications reviewed reviewed O/E awake alert vital signs are stable, interactive is designed appear in any distress, asking for food HEENT:, not jaundiced Chest: Chest movement equal bilaterally ABD: Abdomen is soft, nontender, no guarding or rebound LOCO: Intact DATA: White cell count, CT scan of concern for showing air in the portal system , no evidence of any vascular compromise at the moment, IMPRESSION: CT scan demonstrates air in the portal system. Obvious of concern for ischemic or on known infection. However the patient's exam at the current time shows a benign abdomen, no evidence of any guarding rebound or tenderness PLAN: Patient was admitted, she was hypotensive at the initial exam with and received IV fluids. At the current time she appears to be stable. Will continue the keep her NPO as we observe her over the 1st 24 hr apart fractures some water. 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 At the current time, no indication for surgical intervention.
[2018-03-22 07:50] LABS: Absolute Lymphocytes (CBC) 1.8 K/uL (0.7-4.9); Absolute Monocytes 1.7 K/uL (0.1-1.3); Absolute Neutrophil 20.4 K/uL (1.8-8.0); Basophils % 0.3 % (0-1.3); Eosinophils % 0.1 % (0-4.4); Hematocrit 29.1 % (36.0-45.0); Lymphocytes % 7.4 % (15.3-44.8); MCH 29.3 pg (27.0-35.0); MCV 91.4 fL (80-100); MPV 8.7 fL (7.6-11.3); RBC Red Blood Cell Count 3.18 M/uL (3.86-4.86)
[2018-03-22] MEDS: ONDANSETRON 4 MG/2 ML VIAL IV PRN ×2 (07:55→13:29)
[2018-03-22 08:13] LABS: Albumin 2.2 g/dL (3.4-5.0); Bilirubin Total 0.2 mg/dL (0.2-1.0); Magnesium 2.1 mg/dL (1.8-2.4); Phosphorus 4.4 mg/dL (2.5-4.9); Potassium 4.1 mmol/L (3.5-5.1); Protein, Total 6.5 g/dL (6.4-8.2)
--- NOTE | 2018-03-22 08:35 | RAD REPORT ---
EXAM DESCRIPTION: CT - Abdomen Pelvis W Contrast - 03/22/2018 7:15 am CLINICAL HISTORY: Abdominal pain with vomiting COMPARISON: CT chest March 21, [address] abdomen TECHNIQUE: Computed axial tomography of the abdomen pelvis was obtained. 100 cc Isovue-300 was admin istered intravenously. Oral contrast was not requested which limits evaluation of bowel. A preliminary report was generated by [employer] 8 and reviewed prior to this dictation All CT scans are performed using dose optimization technique as appropriate and may include automated exposure control or mA/KV adjustment according to patient size. FINDINGS: Portal vein gas and splanchnic venous gas is again demonstrated. The gallbladder has been removed. A sub centimeter lesion within the spleen is nonspecific. The pancreas and adrenals are unremarkable. Small renal cysts are present. A 9 x 3.5 centimeter structure is present within the anterior abdominal wall of the lower abdomen/upp er pelvis. It contains fluid and air. Small bowel abuts the anterior abdominal wall in this region. The wall of a portion of transverse colon is thickened. Pneumatosis intestinalis is not seen. An intra-abdominal abscess is not noted. The appendix is normal. There is no evidence of diverticulit is. IMPRESSION: Portal and splenic venous air could be secondary to bowel ischemia perhaps the transvers e colon given the thickened wall. 9 x 3.5 centimeter structure within the anterior abdominal wall of the lower abdomen/ upper pelvis ma y represent an abscess which results in the venous air. Another consideration is that the 9 x 3.5 wilmer timeter structure represents a ventral hernia containing strangulated bowel. A CT scan with oral cont rast would be helpful to distinguish between the 2 possibilities. The exam was discussed with Dr. Flores 8:20 a.m. March 22, 2018
[2018-03-22 08:44] LABS: Platelet Estimate INCR; Toxic Granulation 1+; Urine White Blood Cell Casts OK
[2018-03-22 08:45] LABS: Blood Morphology Comment NOT SEEN (NOT SEEN)
[2018-03-22] MEDS ORDERED: ALPRAZOLAM 1 MG TABLET PO SCH (09:00)
[2018-03-22] MEDS ORDERED: ALLOPURINOL 100 MG TAB PO SCH (09:00)
[2018-03-22] MEDS ORDERED: GABAPENTIN 300 MG CAP PO SCH (09:00)
[2018-03-22] MEDS ORDERED: COLCHICINE PO SCH (09:00)
[2018-03-22] MEDS ORDERED: ESCITALOPRAM 20 MG TAB PO SCH (09:00)
[2018-03-22] MEDS ORDERED: PROBENECID PO SCH (09:00)
[2018-03-22] MEDS ORDERED: PROMETHAZINE 25 MG/ML VIAL IV PRN (09:58)
[2018-03-22 10:14] VITALS: O2SAT 98
--- NOTE | 2018-03-22 12:25 | RAD REPORT ---
EXAM DESCRIPTION: CT - Abdomen Pelvis Wo Contrast - 03/22/2018 11:18 am CLINICAL HISTORY: Abdominal pain. f/u abnl CT COMPARISON: Abdomen Pelvis W Contrast dated 03/21/2018; CT ABDOMEN PELVIS WO CONTRAST dated 5; CTSTONE PROTOCOL dated 05/07/2015; CT ABDOMEN PELVIS WO CONTRAST dated 10/08/2014 TECHNIQUE: CT imaging of the abdomen and pelvis was performed without contrast. Solid organ and vasc ular assessment is limited due to lack of IV contrast. All CT scans are performed using dose optimization technique as appropriate and may include automated exposure control or mA/KV adjustment according to patient size. FINDINGS: Subsegmental atelectasis is present in both posterior lung bases. Previously noted portal venous gas in the liver has resolved.Cholecystectomy is noted. The liver, spl een, pancreas, right adrenal gland are normal. Nodularity of the left adrenal gland is present. Small low-density lesion in the inferior anterior right kidney measuring 13 mm seen. No hydronephrosis. Significant thickening of the stomach is seen. Transverse colon demonstrates marked asymmetric wall t hickening with subtle air bubbles noted within the wall compatible with pneumatosis coli. Focal 9 x 4 cm oblong fluid collections containing air in the anterior midline abdomen do not show evidence of o ral contrast, likely representing subcutaneous abscesses. No bowel obstruction identified. The append ix is normal. Hardware is in place in the lumbar spine. IMPRESSION: Ischemic colitis of the transverse colon is suspected with asymmetric pneumatosis seen. Portal venous gas previously noted has resolved. Focal anterior abdominal wall abscesses, multiloculated, measuring in totality 9 x 4 cm again noted. A limited non-contrast examination was performed as detailed.
--- NOTE | 2018-03-22 15:21 | ECHO ---
HEIGHT: 5 ft 2 in WEIGHT: 206 lb 9 oz DATE OF STUDY: 03/22/[address]: Osman Gaviria MD 2-DIMENSIONAL: YES M.MODE: YES DOPPLER: YES COLOR FLOW: YES TDS: PORTABLE: YES DEFINITY: BUBBLE STUDY: DIAGNOSIS: PREOP CARDIAC HISTORY: CATHERIZATION: NO SURGERY: NO PROSTHETIC VALVE: NO PACEMAKER: NO MEASUREMENTS (cm) DIASTOLIC (NORMALS) SYSTOLIC (NORMALS) IVSd 1.2 (0.6-1.2) LA Diam 3.9 (1.9-4.0) LVEF 61% LVIDd 3.6 (3.5-5.7) LVIDs 2.5 (2.0-3.5) %FS 32% LVPWd 1.2 (0.6-1.2) Ao Diam 2.7 (2.0-3.7) 2 DIMENSIONAL ASSESSMENT: RIGHT ATRIUM: NORMAL LEFT ATRIUM: NORMAL RIGHT VENTRICLE: NORMAL LEFT VENTRICLE: NORMAL TRICUSPID VALVE: NORMAL MITRAL VALVE: MITRAL ANNULAR CALCIFICATION PULMONIC VALVE: NORMAL AORTIC VALVE: NORMAL PERICARDIAL EFFUSION: NONE AORTIC ROOT: NORMAL LEFT VENTRICULAR WALL MOTION: NORMAL DOPPLER/COLOR FLOW: MITRAL REGURGITATION AND TRICUSPID REGURGITATION COMMENTS: MILD MITRAL REGURGITATION AND TRICUSPID REGURGITATION. MITRAL ANNULAR CALCIFICATION. NORMAL LEFT VENTRICULAR SIZE AND FUNCTION. NO WALL MOTION ABNORMALITY. NO EFFUSION. TECHNOLOGIST: ALVA PASCUAL
--- NOTE | 2018-03-22 15:37 | EKG ---
Test Date: 2018-03-21 Test Time: 20:06:13 Corrective Therapy Aide Teacher: RUMA MEASUREMENT RESULTS: Intervals: Rate: 115 FL: 148 QRSD: 80 QT: 318 QTc: 439 [place]: P: 62 FL: 148 QRS: 191 T: 46 INTERPRETIVE STATEMENTS: Sinus tachycardia with premature atrial complexes Right ventricular hypertrophy Lateral infarct, age undetermined Abnormal ECG Compared to ECG 04/18/2017 01:07:03 Atrial premature complex(es) now present Right ventricular hypertrophy now present Myocardial infarct finding now present Sinus bradycardia no longer present First degree AV block no longer present ST (T wave) deviation no longer present Electronically Signed On 03-22-18 15:34:09 CDT by Osman Gaviria
[2018-03-22] MEDS ORDERED: HEPARIN/D5W 25,000 UNIT/500 ML BAG IV SCH (21:00)
[2018-03-23 01:34] VITALS: BP 110/56; TEMP 98
[2018-03-23] MEDS ORDERED: LEVOTHYROXINE SOD 0.112 MG TAB PO SCH (06:00)
--- NOTE | 2018-03-23 08:02 | HP ---
Date of Admission: 03/21/2018 Chief Complaint: Low blood pressure, sepsis. History Of Present Illness: A 62-year-old female who is known to me from previous office visits as w ell as hospitalizations, was brought to the emergency room as her blood pressure dropped during hemod ialysis. The patient had evaluation done. The patient had a cough. The patient, however, did not s how any evidence of pneumonia. She was found to have air in the portal venous system. A CAT scan wa s done of the abdomen with evidence of hernia. This patient was initially admitted to hospitalist. I was told about admission later and transferred to my service. Past Medical History: Positive for type 2 diabetes, hypertension, end-stage renal disease on dialysi s, gout, hypothyroidism. Past Surgical History: Positive for repair of colovesical fistula and colostomy, history of spinal s urgery, carpal tunnel surgery, gallbladder surgery, thyroid surgery. Family History: Positive for type 2 diabetes, hypertension, and coronary artery disease. Personal History: The patient does not smoke or abuse alcohol. Allergies: NONE. Review of Systems: No chest pain, shortness of breath. Physical Examination: General: Revealed 62-year-old female. Vitals: Stable at the time of examination. HEENT: Negative. Neck: Supple. JVD negative. Chest: Clear. Heart: Regular. Abdomen: Ventral subumbilical hernia noted with local warm on palpation. Extremities: Negative. Laboratory: White count at admission 26.7, hemoglobin 10.7, platelet count normal. Chem profile: B UN 31, creatinine 3.4. Lactic acid 2.5. Procalcitonin 3.86. CAT scan of the abdomen, air in the portal system. Assessment: 1.Severe sepsis. 2.Possible abdominal sepsis. 3.Type 2 diabetes. 4.End-stage renal disease, on dialysis. 5.Hypertension. 6.Gout. Plan: During the process of evaluation and management, the patient's family wanted her to be transfe rred to [facility]. The patient also agreed with . I spoke to [facility] transfer and acceptant physicians at [facility]. The patient was transferred at 1:45 p.m. yesterday. JACK/RUPERTO Voice ID: [id number]
== END 2018-03-22 13:43 | disposition short-term general hospital (02) | DRG 871 ==
LOC: ER 19:02 → ERHOLD 21:05 → 3RD-ICU 03-22 00:37
PROVIDERS: ADMIT Internal Medicine; ATTEND Internal Medicine
DX: A41.9 Sepsis, unspecified organism (principal); N18.6 End stage renal disease; K55.039 Acute (reversible) ischemia of large intestine, extent unspecified; I12.0 Hypertensive chronic kidney disease with stage 5 chronic kidney disease or end stage renal disease; D68.51 Activated protein C resistance; E87.2 Acidosis; R65.20 Severe sepsis without septic shock; E11.22 Type 2 diabetes mellitus with diabetic chronic kidney disease; Z99.2 Dependence on renal dialysis; M10.9 Gout, unspecified; E03.9 Hypothyroidism, unspecified; I95.3 Hypotension of hemodialysis; Z79.84 Long term (current) use of oral hypoglycemic drugs; E11.42 Type 2 diabetes mellitus with diabetic polyneuropathy; Z86.718 Personal history of other venous thrombosis and embolism; Z98.1 Arthrodesis status; K43.9 Ventral hernia without obstruction or gangrene
CPT/HCPCS: 36415; 71045; 71250; 74176; 74177; 80048; 80053; 80076; 82805; 83605; 83690; 83735; 84100; 84145; 84484; 85025; 85610; 87040; 87493; 93005; 93306; 96365; 96366; 99285; J2405; J2543; J2550; J3370; J7030; Q9967

== ENCOUNTER 2018-05-22 13:43 | Emergency (ER) | payer OTHER ==
--- OUTSIDE RECORDS SUMMARY | 2018-05-22 13:54 | XMS REPORT | Continuity of Care Document ---
:1955 Author Organization Interface Problems Problem Status Onset Classification Date Comments Source Date Reported DDC // 4 WK F/U Active 04/14/20 [facility] VISIT [address] [place] [address] HOSPITAL FOLLOW Active 04/07/20 [facility] UP [address] [place] [address] SEPSIS Active 03/22/[address] ESRD Active 01/01/[address] Hemorrhage due to 11/12/19 02/08/2018 [facility] vascular [address] [place] [address] prosthetic [place] devices, implants and grafts, initial encounter Hypertensive 11/06/19 02/04/2018 [facility] chronic kidney Medical disease with [place] stage 5 chronic kidney disease or end stage renal disease OUTPATIENT/EVALUA Active 11/01/19 [facility] TION OF PERM A [address] [place] [address] CATH Center OUTPATIENT/PERM A Active 10/21/19 [facility] CATH PLACEMENT [address] [place] [address] E21.3 - Active 09/27/19 [facility] HYPERPARATHYROIDI [address], UNSPECIFI E21.3 Active 08/31/20 [place] [address] [place] Discharge 06/08/20 06/11/2017 Diagnosis: [address] Cellulitis HAND CELLULITIST Active 06/07/20 [facility] [address] [place] IRON SUCROSE Active 07/09/[address] R HAND PAIN AND Active 07/03/20 [facility] SWELLING, R/O [address] [place] GOUT FLARE HAND PAIN Active 07/03/20 [place] [address] [place] DIETARY IRON Active 06/19/20 [facility] DEFICIENCY ANEMIA [address] [place] [address] M54.16 - Active 02/05/20 [facility] "RADICULOPATHY, [address] LUMBAR REGION" M54.16,LUMBAR Active 01/14/[address] [place] [address] SURGICAL WOUND Active 06/15/20 [facility] INFECTION [address] [place] [address] WOUND DRAINAGE Active 06/15/[address] SUPERFICIAL WOUND Active 05/08/20 [facility] MULTIPLE ABDOMEN [address] [place] [address] VENTRAL HERNIA Active 03/25/[address] ABDOMINAL WOUND - Active 03/05/20 [facility] REFERRED FROM [facility] Low back Active 11/20/19 Problem 02/08/2018 Data [facility] pain<sup>1</sup> 15 migrated Medical from [facility], Justyna Smith on 05/14/15. H FOX [place],[facility] Lumbosacral Active 11/20/19 Problem 02/08/2018 Data [facility] spondylosis 15 migrated Medical without from [facility], myelopathy<sup>2< Merylgiancarlo Green,Justyna /sup> on 05/14/15. H FOX Green,[facility] Pseudomonas-MDRO< Active 06/04/20 Problem 02/08/2018 Problem [facility] sup>3, 4</sup> 12 added by [facility], Expert. Justyna Green FOX [place],[facility] Pseudomonas-MDRO< Active 06/04/20 Problem 05/12/2015 Problem [facility] sup>1, 2</sup> 12 added by [facility], Expert. FOX Barba,[facility] Colostomy present Active Problem 02/08/2018 [facility], Peter,Rust FOX [place],[facility] Diabetes mellitus Active Problem 02/08/2018 [facility], Peter,Rust [facility] [place],[facility] Edema Active Problem 06/20/2015 [facility], FOX Barba,[facility] Hypertension Active Problem 02/08/2018 [facility], Peter,M [facility] [place],[facility] Hypothyroidism Active Problem 02/08/2018 [facility], Peter,M [facility] [place],[facility] Morbid obesity Active Problem 02/08/2018 [facility], Peter,M [facility] [place],[facility] Nausea Resolved Problem 02/08/2018 [facility], FOX Barba,[facility] Pain Active Problem 02/08/2018 [facility], FOX Barba,[facility] Ventral hernia Active Problem 02/08/2018 [facility], Justyna Green [facility] Nausea Resolved Problem 01/03/2018 [facility], FOX [place], [place] Pain Active Problem 01/03/2018 [facility], FOX Barba, Peter Dependence on 02/08/2018 [facility] renal dialysis [facility] DVT (<span Resolved Problem 02/08/2018 MH ID="[id number]" Peter >Confirmed</span> [facility] ESRD (<span Resolved Problem 02/08/2018 ID="[id number]"> Peter Confirmed</span>) [facility] Gout [facility] Problem 02/08[facility]2018 [facility] Obesity Active Problem [facility]/08[facility]2018 [facility] Rad[facility]opathy Active Problem [facility] Type 2 diabetes 02/04/2018 [facility] mellitus with Medical diabetic chronic [place] kidney disease End stage renal 02/04/2018 [facility] Anemia in chronic 02/04/2018 [facility] long-term use of 02/04/2018 [facility] oral hypoglycemic [facility] drugs [place] Other nursing home 02/04/2018 [facility] drug therapy [facility] Final: 05/04/2015 [facility] Edema Active Problem 10/19/2015 [facility], FOX Barba, [facility] [place] Nausea Resolved Problem 10/19/2015 [facility], OPID [place], [facility] [place] Pain Active Problem 10/19/2015 [facility], OPID [place], [facility] [place] Edema Active Problem 02/07/2016 [facility], OP[facility] [place], [facility] Nausea Resolved Problem 02/07/2016 [facility], OPID [place], OPID [facility] Pain Active Problem 02/07/2016 [facility], OPIPb [place]ba, OPID [facility] Edema Active Problem 07/08/2016 [facility], ARCENIOD [place], [place] Edema Active Problem 01/30/2016 [facility], FOX Barba,[facility] Nausea Resolved Problem 01/30/2016 [facility], OPID [place],[facility] Pain Active Problem 01/30/2016 [facility], FOX Barba,[facility] ADMINISTRTVE Active [facility] Medical [place] OTHER POSTOP Active [facility] INFECTION [facility] VENTRAL HERNIA Active [facility] ILLNESS, Active UNSPECIFIED [facility] Medications Medication Details Route Status Patient Ordering Order Source Instructions Provider Date acetaminophen 325 650 mg=2 tab, Active 01/13[facility] [place] mg oral tablet PO, Q4H, PRN 2018 Medical for pain, X 10 Center day, # 75 tab, 0 Refill(s) gabapentin 100 MG 100 mg=1 cap, Active Reji Oral Capsule PO, QID, # 56 2018 Medical cap, 0 Center Refill(s) glycopyrrolate Route: IV, Drug Inactive Reji (ANES) form: INJ, 2017 Medical ONCE, Stop Center date: 01/13/18 12:54:00 CDT neostigmine (ANES) Route: IV, Drug Inactive Reji form: INJ, 2017 Medical ONCE, Stop Center date: 01/13/18 12:54:00 CDT protamine (ANES) Route: IV, Drug Inactive Reji form: INJ, 2017 Medical ONCE, Stop Center date: 01/13/18 12:54:00 CDT acetaminophen Route: IV, Drug Inactive Reji (ANES) form: INJ, 2017 Medical ONCE, Stop Center date: 01/13/18 12:54:00 CDT ondansetron (ANES) Route: IV, Drug Inactive 01/13[facility] Reji form: INJ, 2017 Medical ONCE, Stop Center date: 01/13/18 12:54:00 CDT heparin (ANES) Route: IV, Drug Inactive Reji form: INJ, 2017 Medical ONCE, Stop Center date: 01/13/18 12:43:00 CDT Ondansetron 4 mg, Route: Inactive 01/13[facility] Reji IVP, ONCE, 2018 Medical Dosing Weight Center 92.273, kg, PRN Nausea & Vomiting, Start date: 01/13/18 12:34:00 CDT Promethazine 6.25 mg, Route: Inactive Reji IVPB, ONCE, 2018 Medical Dosing Weight Center 92.273, kg, PRN Nausea & Vomiting, Start date: 01/13/18 12:34:00 CDT Naloxone 0.4 mg, Route: Inactive Reji IVP, Q2MIN, 2018 Medical Dosing Weight Center 92.273, kg, PRN Narcotic Reversal, Start date: 01/13/18 12:34:00 CDT, Duration: 8 doses or times, Stop date: Limited # of times Fentanyl 50 microgram, Inactive Reji Route: IVP, 2018 Medical Q5Min, Dosing Center Weight 92.273, kg, PRN Pain Score 7-10, Priority: Routine, Start date: 01/13/18 12:34:00 CDT, Duration: 2 doses or times, Stop date: Limited # of times Flumazenil 0.2 mg, Route: Inactive [facility] IVP, PRN, 2018 Medical Dosing Weight Center 92.273, kg, PRN Benzodiazepine Reversal, Initial dose, Start date: 01/13/18 12:34:00 CDT, Duration: 30 day, Stop date: 02/12/18 12:33:00 CDT ceFAZolin (ANES) Route: IV, Drug Inactive [facility] form: INJ, 2017 Medical ONCE, Stop Center date: 01/13/18 12:28:00 CDT cisatracurium Route: IV, Drug Inactive Reji (ANES) form: INJ, 2017 Medical ONCE, Stop Center date: 01/13/18 12:28:00 CDT midazolam (ANES) Route: IV, Drug Inactive [facility] form: SOLN, 2017 Medical ONCE, Stop Center date: 01/13/18 12:18:00 CDT fentaNYL (ANES) Route: IV, Drug Inactive [facility] form: INJ, 2017 Medical ONCE, Stop Center date: 01/13/18 12:18:00 CDT propofol (ANES) Route: IV, Drug Inactive [facility] form: INJ, 2018 Medical ONCE, Stop Center date: 01/13/18 12:18:00 CDT lidocaine (ANES) Route: IV, Drug Inactive Reji form: INJ, 2017 Medical ONCE, Stop Center date: 01/13/18 12:18:00 CDT Sodium Chloride Route: IV, Inactive Reji 0.9% IV (ANES) Total Volume: [address] [facility] 1000 mL 1,000, Start Center date: 01/13/18 11:37:00 CDT, Stop date: 01/13/18 12:37:00 CDT Dextrose 50% in Route: IV, Inactive Reji Water (bolus) IV Dosing Weight [address] [facility] 94.091, kg, Center ONCE, Start date: 10/29/17 21:12:00 [employer], Stop date: 10/29/17 21:12:00 [employer] gabapentin 100 MG 200 mg=2 cap, No Longer [facility] Oral Capsule PO, Daily, 0 Active 2017 Medical Refill(s) Center gabapentin 100 MG 100 mg=1 cap, No Longer [facility] Oral Capsule PO, BID, 0 Active 2018 Medical Refill(s) Center Lasix 3 mg/kg, Daily, Active Reji 0 Refill(s) 2018 Medical Center Fentanyl 50 microgram, Inactive Reji Route: IV, 2018 Medical ONCE, Dosing Center Weight 94.091, kg, Start date: 10/29/17 16:40:00 [employer], Stop date: 10/29/17 16:40:00 [employer], Fentanyl 50 microgram, Inactive Reji Route: IV, 2018 Medical ONCE, Dosing Center Weight 94.091, kg, Start date: 10/29/17 16:30:00 [employer], Stop date: 10/29/17 16:30:00 [employer], Versed 1 mg, Route: Inactive [place] IV, ONCE, 2018 Medical Dosing Weight Center 95.455, kg, Start date: 10/29/17 16:30:00 [employer], Stop date: 10/29/17 16:30:00 [employer] Clindamycin 300 mg, Route: Inactive PO, ONCE, [address] [place] [address] Dosing Weight 95.455, kg, Priority: STAT, Start date: 06/08/17 2:39:00 CDT, Duration: 1 doses or times, Stop date: 06/08/17 2:39:00 CDT, ABX Indication: Skin/Soft Tissue Infection Colchicine 0.6 MG 0.6 mg=1 cap, Active Oral Capsule PO, BID, # 10 [address] [place] cap, 0 Refill(s), Pharmacy: [facility] clindamycin 300 mg 300 mg=1 cap, Active oral capsule PO, Q6H, X 10 2016land day, # 40 cap, 0 Refill(s), Pharmacy: [facility] Acetaminophen 300 1 tab, PO, Q6H, Active MG / Codeine PRN Pain, X 3 [address] [place] [address] Phosphate 30 MG day, # 12 tab, Oral Tablet 0 Refill(s) [Tylenol with Codeine #3] Clindamycin 600 mg, 50 mL, Inactive Route: IVPB, 2016 [place] Drug form: INJ, ONCE, Dosing Weight 95.455, kg, Priority: STAT, Start date: 06/08/17 2:27:00 CDT, Duration: 1 doses or times, Stop date: 06/08/17 2:27:00 CDT, ABX Indication: Skin/Soft Tissue Infection Acetaminophen 300 1 tab, Route: No Longer MG / Codeine PO, Drug Form: Active 2016 [place] Phosphate 30 MG TAB, Dosing Oral Tablet Weight 95.455, [Tylenol with kg, ONCE, STAT, Codeine #3] Start date: 06/07/17 23:58:00 CDT, Stop date: 06/07/17 23:58:00 CDTNotes: Do not exceed 4gm/day of acetaminophen. (Same as: Tylenol with Codeine # 3) Ibuprofen 600 mg, 1 tab, No Longer Route: PO, Drug Active 2016 [place] form: TAB, ONCE, Dosing Weight 95.455, kg, Priority: STAT, Start date: 06/07/17 23:58:00 CDT, Stop date: 06/07/17 23:58:00 CDTNotes: (Same as: Motrin) "Do Not Crush" Take with food. Colchicine 0.6 MG 1.2 mg, 2 tab, No Longer Oral Tablet Route: PO, Drug Active [address] [place] [address] form: TAB, ONCE, Dosing Weight 95.455, kg, Start date: 06/07/17 23:57:00 CDT, Stop date: 06/07/17 23:57:00 CDT methylPREDNISolone 125 mg, 2 mL, No Longer SODium SUCCinate Route: IVP, Active 2016 [place] [address] Drug form: INJ, ONCE, Dosing Weight 95.455, kg, Priority: STAT, Start date: 06/07/17 23:57:00 CDT, Stop date: 06/07/17 23:57:00 CDTNotes: (Same as:Solu-MEDROL, A-Methapred) Benadryl 25 mg, 0.5 mL, Inactive Reji Route: IVP, 2015 Medical Drug form: INJ, Center On Adm, Start date: 07/17/16 7:00:00 CDT, Duration: 1 doses or times, Stop date: 07/17/16 21:00:00 CDTNotes: (Same as: Benadryl) Tylenol 650 mg, 2 tab, Inactive Reji Route: PO, Drug 2015 Medical form: TAB, On Center Adm, Start date: 07/17/16 7:00:00 CDT, Duration: 1 doses or times, Stop date: 07/17/16 21:00:00 CDTNotes: Do not exceed 4 gm/day. (Same as: Tylenol) Venofer + sodium 500 mg, 25 mL, Inactive [place] chloride 0.9% INJ Route: IVPB, On 2015 Medical 250 mL Adm, Start Center date: 07/17/16 7:00:00 CDT, Duration: 1 doses or times, Stop date: 07/17/16 21:00:00 CDTNotes: Each 5ml contains 100mg elemental iron. Mix with NS (Same as:Venofer) Administer IV only. MEDICATION WASTE Product Size: 100 mg Product Wasted: _0__ mg Venofer + sodium 500 mg, 25 mL, Inactive [facility] chloride 0.9% INJ Route: IVPB, On 2015 Medical 250 mL Adm, Start Center date: 07/14/16 7:00:00 CDT, Duration: 1 doses or times, Stop date: 07/14/16 21:00:00 CDTNotes: Each 5ml contains 100mg elemental iron. Mix with NS (Same as:Venofer) Administer IV only. MEDICATION WASTE Product Size: 100 mg Product Wasted: _0__ mg Tylenol 650 mg, 2 tab, Inactive 07/14[facility] Route: PO, Drug 2015 Medical form: TAB, On Center Adm, Start date: 07/14/16 7:00:00 CDT, Duration: 1 doses or times, Stop date: 07/14/16 21:00:00 CDTNotes: Do not exceed 4 gm/day. (Same as: Tylenol) Benadryl 25 mg, 0.5 mL, Inactive 07/14[facility] Route: IVP, 2015 Medical Drug form: INJ, Center On Adm, Start date: 07/14/16 7:00:00 CDT, Duration: 1 doses or times, Stop date: 07/14/16 21:00:00 CDTNotes: (Same as: Benadryl) influenza virus 0.5 mL, Route: No Longer vaccine, IM, Drug Form: Active [address] [place] [address] inactivated SUSP, Daily, Start date: 07/06/16 9:00:00 CDT, Duration: 1 doses or times, Stop date: 07/06/16 9:00:00 CDTNotes: (Same as: Fluzone Quadrivalent, Fluarix Quadrivalent) For 3 years of age and older (0.5 mL IM) Shake well before use Famotidine 20 MG 20 mg=1 tab, Active Oral Tablet PO, BID, # 60 2015 [place] tab, 0 Refill(s), Pharmacy: [facility] {21 See Active (Methylprednisolon Instructions, 2015 [place] e 4 MG Oral Tablet PO, Take by [Medrol]) } Pack mouth as [Medrol Dosepak] directed on label., X 6 day, # 1 Pack, 0 Refill(s), Pharmacy: [facility] heparin 5,000 unit, 1 No Longer mL, Route: Active 2015 [place] SUB-Q, Drug form: INJ, BID, Dosing Weight 97.273, kg, Start date: 07/04/16 17:00:00 CDT, Duration: 30 day, Stop date: 08/03/16 9:00:00 CSTNotes: porcine heparin Solu-Medrol 40 mg, 1 mL, No Longer Route: IVP, Active 2015 [place] Drug form: INJ, Q8H, Dosing Weight 97.273, kg, Start date: 07/04/16 16:00:00 CDT, Duration: 24 hr, Stop date: 07/05/16 8:00:00 CDTNotes: (Same as:Solu-MEDROL, A-Methapred) Protonix 40 mg, 1 tab, No Longer Route: PO, Drug Active 2015 [place] form: ECTAB, Daily, Dosing Weight 97.273, kg, Priority: STAT, Start date: 07/04/16 10:25:00 CDT, Duration: 30 day, Stop date: 08/03/16 9:00:00 CSTNotes: Tablet should not be chewed or crushed. (Same as: Protonix) influenza virus 0.5 mL, Route: Inactive vaccine, IM, Drug Form: 2015 [place] inactivated SUSP, Daily, Start date: 07/04/16 9:00:00 CDT, Duration: 1 doses or times, Stop date: 07/04/16 9:00:00 CDTNotes: (Same as: Fluzone Quadrivalent, Fluarix Quadrivalent) For 3 years of age and older (0.5 mL IM) Shake well before use 3 ML Insulin 12 unit, Route: Inactive Glargine 100 SUB-Q, Drug 2015 [place] UNT/ML Prefilled form: SOLN, Syringe [Lantus] Daily, Dosing Weight 97.273, kg, Start date: 07/04/16 9:00:00 CDT, Duration: 30 day, Stop date: 08/02/16 9:00:00 [employer] Diltiazem 240 mg, 1 cap, No Longer Route: PO, Drug Active 2015 [place] form: ERCAP, Daily, Dosing Weight 97.273, kg, Start date: 07/04/16 9:00:00 CDT, Duration: 30 day, Stop date: 08/02/16 9:00:00 CSTNotes: (Same as: Cardizem CD) Before meals. DO NOT CRUSH. Lexapro 20 mg, 2 tab, No Longer Route: PO, Drug Active 2015 [place] form: TAB, Daily, Dosing Weight 97.273, kg, Start date: 07/04/16 9:00:00 CDT, Duration: 30 day, Stop date: 08/02/16 9:00:00 CSTNotes: (Same as: Lexapro) pneumococcal 0.5 mL, Route: No Longer capsular IM, Daily, Active 2015 [place] polysaccharide Start date: type 1 vaccine / 07/04/16 pneumococcal 9:00:00 CDT, capsular Duration: 1 polysaccharide doses or times, type 10A vaccine / Stop date: pneumococcal 07/04/16 capsular 9:00:00 CDT polysaccharide type 11A vaccine / pneumococcal capsular polysaccharide type 12F vaccine / pneumococcal capsular polysacchar Levemir FlexPen 12 unit, 0.12 No Longer mL, Route: Active 2015 [place] SUB-Q, Drug form: INJ, Daily, Start date: 07/04/16 9:00:00 CDT, Duration: 30 day, Stop date: 08/02/16 9:00:00 CSTNotes: Same as Levemir Do not hold insulin without contacting prescriber WASTE: F/P - Black; E - Municipal Trash Bin "single patient use only" Levothroid 224 microgram, No Longer 2 tab, Route: Active 2015 [place] PO, Drug form: TAB, Before Breakfast, Dosing Weight 97.273, kg, Start date: 07/04/16 7:30:00 CDT, Stop date: 08/02/16 7:30:00 CSTNotes: Take 1 hour before or 2 hours after meal; Enteral feeds may interefere with the absorption of this medication.(Chu e as:Levothroid) Vitamin D2 50,000 Inactive IntlUnit, 2015 [place] Route: PO, Drug form: CAP, qWeek, Dosing Weight 97.273, kg, Start date: 07/04/16 1:00:00 CDT, Duration: 30 day, Stop date: 08/01/16 9:00:00 [employer] Alprazolam 1 MG 1 mg, 1 tab, No Longer Oral Tablet Route: PO, Drug Active 2015 [place] [Xanax] form: TAB, BID, Dosing Weight 97.273, kg, PRN Anxiety, Start date: 07/04/16 0:23:00 CDT, Duration: 30 day, Stop date: 08/03/16 0:22:00 CSTNotes: With food or milk (Same as: Xanax) heparin 5,000 unit, 1 Inactive mL, Route: 2015 [place] SUB-Q, Drug form: INJ, Q8H, Dosing Weight 100, kg, Start date: 07/04/16 0:00:00 CDT, Duration: 30 day, Stop date: 08/02/16 16:00:00 CSTNotes: porcine heparin glimepiride 4 mg, PO, Active Daily, 0 [address] [place] Refill(s) Prednisone 40 mg, 2 tab, No Longer Route: PO, Drug Active 2015 [place] form: TAB, Q24H, Dosing Weight 100, kg, Start date: 07/03/16 22:00:00 CDT, Duration: 30 day, Stop date: 08/01/16 22:00:00 CSTNotes: Take with food. Clindamycin 600 mg, 50 mL, No Longer Route: IVPB, Active 2015 [place] Drug form: INJ, ABXQ8H, Dosing Weight 100, kg, Start date: 07/03/16 22:00:00 CDT, Stop date: 08/02/16 14:00:00 [employer] sodium chloride 1,000 mL, Rate: No Longer 0.9% 1000 ml INJ 75 ml/hr, Active 2015 [place] 1,000 mL Infuse over: 13.3 hr, Route: IV, Dosing Weight 100 kg, Total Volume: 1,000, Start date: 07/03/16 21:54:00 CDT, Duration: 30 day, Stop date: 08/02/16 21:53:00 [employer] Insulin, Aspart, 4 unit, 0.04 No Longer Human mL, Route: Active 2015 [place] SUB-Q, Drug form: SOLN, Bedtime, Dosing Weight 100, kg, PRN Blood Glucose Results, Start date: 07/03/16 21:51:00 CDT, Duration: 30 day, Stop date: 08/02/16 21:50:00 CSTNotes: Roll in palms of hands gently; Do not shake vigorously. (Same as: NovoLOG) "single patient use only" WASTE: F/P - Black; E - Municipal Trash Bin Stable for 28 days at room temperature. Expires in days from D ate Glucagon 1 mg, Route: No Longer IM, Drug form: Active 2015 [place] PDR/INJ, PRN, Dosing Weight 100, kg, PRN Blood Glucose Results, Start date: 07/03/16 21:51:00 CDT, Duration: 30 day, Stop date: 08/02/16 20:50:00 [employer] Dextrose 50% 12.5 gm, 25 mL, No Longer Syringe Route: IVP, Active 2015 [place] Drug Form: INJ, Dosing Weight 100, kg, PRN, PRN Blood Glucose Results, Start date: 07/03/16 21:51:00 CDT, Duration: 30 day, Stop date: 08/02/16 20:50:00 [employer] Dilaudid 0.5 mg, 0.5 mL, No Longer Route: IVP, Active 2015 [place] Drug form: INJ, Q3H, Dosing Weight 100, kg, PRN Pain Score 7-10, Start date: 07/03/16 21:50:00 CDT, Duration: 30 day, Stop date: 08/02/16 21:49:00 CSTNotes: Same as: Dilaudid Ondansetron 4 mg, 2 mL, No Longer Route: IVP, Active 2015 [place] Drug form: INJ, Q6H, Dosing Weight 100, kg, PRN Nausea & Vomiting, Start date: 07/03/16 21:50:00 CDT, Duration: 30 day, Stop date: 08/02/16 21:49:00 CSTNotes: (Same as: Zofran) MEDICATION WASTE Product Size: 4 mg Product Wasted: ___ mg Acetaminophen 325 1 tab, Route: No Longer MG / Hydrocodone PO, Drug Form: Active 2015 [place] Bitartrate 5 MG TAB, Dosing Oral Tablet Weight 100, kg, Q4H, PRN Pain Score 4-6, Start date: 07/03/16 21:50:00 CDT, Duration: 30 day, Stop date: 08/02/16 21:49:00 CSTNotes: (Same as: [place] 325/5) Do not exceed 4gm/day of acetaminophen. Acetaminophen 650 mg, 2 tab, No Longer Route: PO, Drug Active 2015 [place] form: TAB, Q4H, Dosing Weight 100, kg, PRN Pain 1-3/Temp > 100.4 F, Start date: 07/03/16 21:50:00 CDT, Duration: 30 day, Stop date: 08/02/16 21:49:00 CSTNotes: Do not exceed 4 gm/day. (Same as: Tylenol) Zosyn 3.375 gm, Inactive Route: IVPB, 2016 [place] ONCE, Dosing Weight 100, kg, Priority: STAT, Start date: 07/03/16 20:28:00 CDT, Stop date: 07/03/16 20:28:00 CDTNotes: (Same as: Zosyn) Dosing based on Piperacillin component MEDICATION WASTE Product Size: 3375 mg Product Wasted: ___ mg Sodium Chloride 1,000 mL, 2,000 Inactive 0.154 MEQ/ML ml/hr, Infuse 2015 [place] Injectable Over: 30 Solution minutes, Route: IV, ONCE, Priority: STAT, Dosing Weight 100 kg, Start date: 07/03/16 19:00:00 CDT, Duration: 1 doses or times, Stop date: 07/03/16 19:00:00 CDT Tramadol 50 mg, Route: Inactive PO, Drug form: 2015 [place] TAB, ONCE, Dosing Weight 100, kg, > 50 kg, Priority: STAT, Start date: 07/03/16 17:42:00 CDT, Stop date: 07/03/16 17:42:00 CDT Acetaminophen 325 1-2 tab, PO, Active MG / Hydrocodone TID, PRN Pain 2015 [facility] Bitartrate 5 MG Score 4-6, # [address] [facility] Oral Tablet [[place] tab, 0 5/325] Refill(s), given to patient cyclobenzaprine 10 10 mg=1 tab, Active mg oral tablet PO, TID, PRN 2015 [facility] Spasm, X [address] [facility] day, # 60 tab, 0 Refill(s), Pharmacy: [facility] insulin aspart 100 2 unit, SUB-Q, Active units/mL TID-Before 2015 [facility] subcutaneous Meals, # 3 mL, [facility] solution 0 Refill(s) 3 ML Insulin 12 unit, SUB-Q, Active Glargine 100 Daily, # 1 2015 [facility] UNT/ML Prefilled pen(s), [address] [facility] Syringe [Lantus] Refill(s) cefpodoxime 100 mg 100 mg=1 tab, Active oral tablet PO, Q12H, X 5 2015 [facility] [facility] , # 10 tab, [place] 0 Refill(s) Vitamin D2 50,000 Inactive IntlUnit, 1 2015 [facility] cap, Route: PO, City Drug form: CAP, QMon, Dosing Weight 93.182, kg, Start date: 01/27/16 9:00:00 CDT, Duration: 30 day, Stop date: 02/24/16 9:00:00 CDT potassium chloride 10 mEq, 100 mL, Inactive Route: IVPB, 2015 [facility] Drug form: INJ, City Q1H, Dosing Weight 100.966, kg, Total Dose=20 meq, Start date: 01/26/16 7:00:00 CDT, Duration: 2 doses or times, Stop date: 01/26/16 8:00:00 CDT, Peripheral LineNotes: Infuse at a rate of 10 mEq/hr. (Same as: KCL) potassium chloride 40 mEq, 30 mL, Inactive Route: PO, Drug 2015 [facility] form: LIQ, [facility] ONCE, Start date: 01/26/16 6:48:00 CDT, Stop date: 01/26/16 6:48:00 CDTNotes: (Same as: Potassium Chloride) Potassium Chloride 2 tab, Route: Inactive 20 MEQ Extended PO, Drug form: 2015 [facility] Release Tablet ERTAB, ONCE, [facility] Dosing Weight 100.966, kg, Start date: 01/26/16 6:36:00 CDT, Stop date: 01/26/16 6:36:00 CDT Lantus 15 unit, 0.15 No Longer mL, Route: Active 2015 [facility] SUB-Q, Drug [facility] form: INJ, Bedtime, Dosing Weight 100.966, kg, Start date: 01/25/16 21:00:00 CDT, Duration: 30 day, Stop date: 02/23/16 21:00:00 CDTNotes: Same as Yair Castellon PEN "single patient use only" WASTE: F/P - Black; E - Municipal Trash Bin Stable for 28 days at room temperature. Expires in days from D ate Hydrocortisone 50 mg, 1 mL, Inactive Route: IV, Drug 2015 [facility] form: PDR/INJ, [facility] Q6H, Dosing Weight 100.966, kg, Start date: 01/25/16 6:00:00 CDT, Duration: 30 day, Stop date: 02/24/16 0:00:00 CDTNotes: (Same as: Solu-CORTEF) Hydrocortisone 100 mg, 2 mL, Inactive Route: IV, Drug 2015 [facility] form: PDR/INJ, [facility] ONCE, Dosing Weight 100.966, kg, Start date: 01/24/16 23:15:00 CDT, Stop date: 01/24/16 23:15:00 CDTNotes: (Same as: Nba) Vancomycin 1 gm, Route: Inactive IV, Drug form: [address] [place] [address] INJ, Q24H, [facility] Dosing Weight 100.966, kg, Start date: 01/24/16 17:00:00 CDT, Duration: 30 day, Stop date: 02/22/16 17:00:00 CDTNotes: TIME CRITICAL MEDICATION (Same As: Vancocin) Infusion rate 2001 mg: infuse over 2.5 hours MEDICATION WASTE Product Size: 1000 mg Product Wasted: ___ mg Saline Flush 0.9% 10 mL, Route: No Longer IVP, Drug Form: Active 2015 [facility] INJ, Dosing [facility] Weight 100.966, kg, Q8H, Start date: 01/24/16 16:00:00 CDT, Duration: 30 day, Stop date: 02/23/16 8:00:00 CDTNotes: (Same as: BD Posiflush) Vancomycin 1.5 gm, 250 mL, Inactive Route: IVPB, [address] [place] [address] Drug form: INJ, [facility] ONCE, Dosing Weight 100.966, kg, Start date: 01/24/16 15:17:00 CDT, Stop date: 01/24/16 15:17:00 CDTNotes: TIME CRITICAL MEDICATION Same as: Vancocin-NS (premixed) Infusion rate 2001 mg: infuse over 2.5 hours Saline Flush 0.9% 10 mL, Route: No Longer IVP, Drug Form: Active 2015 [facility] INJ, Dosing [place] Weight 100.966, kg, PRN, PRN Line Flush, Start date: 01/24/16 14:04:00 CDT, Duration: 30 day, Stop date: 02/23/16 14:03:00 CDTNotes: (Same as: BD Posiflush) cefepime 1 gm, Route: No Longer IVPB, Drug Active 2015 [facility] form: INJ, [facility] [id number], Dosing Weight 100.966, kg, (CrCl 10 - 29 ml/min), Start date: 01/24/16 11:00:00 CDT, Duration: 30 day, Stop date: 02/22/16 11:00:00 CDTNotes: (Same As: Maxipime) MEDICATION WASTE Product Size: 1000 mg Product Wasted: ___ mg Glucose 100 MG/ML 961.5 mL, Rate: No Longer / Sodium Chloride 50 ml/hr, Active 2015 [facility] 0.154 MEQ/ML Infuse over: 20 [place] Injectable hr, Route: IV, Solution Dosing Weight 100.966 kg, Total Volume: 1,000, Start date: 01/24/16 0:17:00 CDT, Stop date: 02/23/16 0:16:00 CDT Dextrose 10% with 500 mL, Rate: No Longer 0.9% NaCl IV 500 100 ml/hr, Active 2015 [facility] mL Infuse over: 5 [place] hr, Route: IV, Dosing Weight 100.966 kg, Total Volume: 500, Start date: 01/23/16 18:30:00 CDT, Duration: 1 doses or times, Stop date: 01/24/16 5:18:00 CDT Dextrose 10% in 961.5 mL, Rate: Inactive Water IV 961.5 mL 75 ml/hr, 2015 [facility] + sodium chloride Infuse over: City 154 mEq 13.3 hr, Route: IV, Dosing Weight 100.966 kg, Total Volume: 1,000, Start date: 01/23/16 18:15:00 CDT, Duration: 30 day, Stop date: 02/22/16 18:14:00 CDT Glucose 100 MG/ML 500 mL, Rate: Inactive / Sodium Chloride 75 ml/hr, 2015 [facility] 0.154 MEQ/ML Infuse over: [place] Injectable 6.7 hr, Route: Solution IV, Dosing Weight 100.966 kg, Total Volume: 500, Start date: 01/23/16 17:44:00 CDT, Duration: 30 day, Stop date: 02/22/16 17:43:00 CDT d50 syringe 25 gm, 50 mL, Inactive Route: IVP, 2015 [facility] Form: INJ, City Dosing Weight 100.966, kg, ONCE, STAT, Start date: 01/23/16 12:17:00 CDT, Stop date: 01/23/16 12:17:00 CDT D5NS 1,000 mL 1,000 mL, Rate: Inactive 75 ml/hr, 2015 [facility] Infuse over: [facility] 13.3 hr, Route: IV, Dosing Weight 100.966 kg, Total Volume: 1,000, Start date: 01/23/16 12:15:00 CDT, Duration: 30 day, Stop date: 02/22/16 12:14:00 CDT Magnesium Sulfate 2 gm, 50 mL, Inactive Route: IVPB, 2015 [facility] Drug form: INJ, [place] ONCE, Dosing Weight 100.966, kg, Start date: 01/23/16 12:15:00 CDT, Duration: 2 hr, Stop date: 01/23/16 12:15:00 CDTNotes: WASTE: F/P - Sink; E - Municipal Trash Bin NS 1,000 mL 1,000 mL, Rate: Inactive 75 ml/hr, 2015 [facility] Infuse over: [facility] 13.3 hr, Route: IV, Dosing Weight 100.966 kg, Total Volume: 1,000, Start date: 01/23/16 11:13:00 CDT, Duration: 30 day, Stop date: 02/22/16 11:12:00 CDT Sodium Chloride 500 mL, 500 Inactive 0.154 MEQ/ML ml/hr, Infuse 2015 [facility] Injectable Over: 1 hr, [facility] Solution Route: IV, 500, Drug form: INJ, ONCE, Priority: STAT, Dosing Weight 100.966 kg, Start date: 01/23/16 11:03:00 CDT, Duration: 1 doses or times, Stop date: 01/23/16 11:03:00 CDT Dextrose 50% 12.5 gm, 25 mL, No Longer Syringe Route: IVP, Active [address] [place] [address] Drug Form: INJ, [facility] Dosing Weight 100.966, kg, PRN, PRN Blood Glucose Results, Start date: 01/23/16 11:01:00 CDT, Duration: 30 day, Stop date: 02/22/16 11:00:00 CDT Glucagon 1 mg, Route: No Longer IM, Drug form: Active 2015 [facility] PDR/INJ, PRN, [facility] Dosing Weight 100.966, kg, PRN Blood Glucose Results, Start date: 01/23/16 11:01:00 CDT, Duration: 30 day, Stop date: 02/22/16 11:00:00 CDT Insulin, Aspart, 5 unit, 0.05 No Longer Human mL, Route: Active 2015 [facility] SUB-Q, Drug City form: SOLN, TID-Before Meals, Dosing Weight 100.966, kg, PRN Blood Glucose Results, Start date: 01/23/16 11:01:00 CDT, Duration: 30 day, Stop date: 02/22/16 11:00:00 CDTNotes: Roll in palms of hands gently; Do not shake vigorously. (Same as: NovoLOG) "single patient use only" WASTE: F/P - Black; E - Municipal Trash Bin Stable for 28 days at room temperature. Expires in days from D ate d50 syringe 1 amp, Route: Inactive IVP, Dosing 2015 [facility] Weight 100.966, City kg, ONCE, STAT, Start date: 01/23/16 9:20:00 CDT, Stop date: 01/23/16 9:20:00 CDT Acetaminophen 325 2 tab, Route: No Longer MG / Hydrocodone PO, Drug Form: Active 2015 [facility] Bitartrate 5 MG TAB, Dosing [facility] Oral Tablet [[place] Weight 100.966, 5/325] kg, Q4H, PRN Pain Score 4-6, Start date: 01/22/16 16:01:00 CDT, Duration: 30 day, Stop date: 02/21/16 16:00:00 CDTNotes: (Same as: [place] 325/5) Do not exceed 4gm/day of acetaminophen. Phenergan 12.5 mg, 50 mL, No Longer Route: IVPB, Active 2015 [facility] Drug form: [facility] SOLN, Q6H, Dosing Weight 100.966, kg, PRN Nausea & Vomiting, Priority: STAT, Start date: 01/22/16 10:39:00 CDT, Duration: 30 day, Stop date: 02/21/16 10:38:00 CDT Metolazone 5 MG 5 mg, 1 tab, No Longer Oral Tablet Route: PO, Drug Active 2015 [facility] form: TAB, [facility] Daily, Dosing Weight 93.182, kg, Start date: 01/21/16 9:00:00 CDT, Duration: 30 day, Stop date: 02/19/16 9:00:00 CDTNotes: (Same as: Zaroxolyn) Lisinopril 40 mg, 2 tab, No Longer Route: PO, Drug Active 2015 [facility] form: TAB, [facility] Daily, Dosing Weight 93.182, kg, Start date: 01/21/16 9:00:00 CDT, Duration: 30 day, Stop date: 02/19/16 9:00:00 CDTNotes: (Same as: Prinivil, Zestril) Levothroid 112 microgram, No Longer 1 tab, Route: Active 2015 [facility] PO, Drug form: [facility] TAB, Q630AM, Dosing Weight 93.182, kg, Start date: 01/21/16 9:00:00 CDT, Duration: 30 day, Stop date: 02/20/16 6:30:00 CDTNotes: Take 1 hour before or 2 hours after meal; Enteral feeds may interefere with the absorption of this medication.(Chu e as:Levothroid) glimepiride 2 mg, 1 tab, No Longer Route: PO, Drug Active 2015 [facility] form: TAB, [facility] Breakfast, Dosing Weight 93.182, kg, Start date: 01/21/16 9:00:00 CDT, Duration: 30 day, Stop date: 02/20/16 8:00:00 CDTNotes: (Same as: Amaryl) Furosemide 80 mg, 2 tab, No Longer Route: PO, Drug Active 2015 [facility] form: TAB, [facility] Daily, Dosing Weight 93.182, kg, Start date: 01/21/16 9:00:00 CDT, Duration: 30 day, Stop date: 02/19/16 9:00:00 CDTNotes: (Same as: Lasix) May cause GI upset. Give with food or milk. Lexapro 20 mg, 2 tab, No Longer Route: PO, Drug Active 2015 [facility] form: TAB, [facility] Daily, Dosing Weight 93.182, kg, Start date: 01/21/16 9:00:00 CDT, Duration: 30 day, Stop date: 02/19/16 9:00:00 CDTNotes: (Same as: Lexapro) Diltiazem 240 mg, 1 cap, No Longer Route: PO, Drug Active 2015 [facility] form: ERCAP, [facility] Daily, Dosing Weight 93.182, kg, Start date: 01/21/16 9:00:00 CDT, Duration: 30 day, Stop date: 02/19/16 9:00:00 CDT Sodium Chloride 25 mL, Route: No Longer 0.9% IV IV, Start date: Active 2015 [facility] 01/21/[address] [facility] 8:51:00 CDT, Duration: 30 day, Stop date: 02/20/16 8:50:00 CDT, PRN Line Flush BD Normal Saline 10 mL, Route: No Longer Flush IV, Drug Form: [facility] 2015 [facility] INJ, PRN, PRN [facility] Line Flush, Start date: 01/21/16 8:51:00 CDT, Duration: 30 day, Stop date: 02/20/16 8:50:00 CDTNotes: (Same as: BD Posiflush) Alprazolam 1 MG 1 mg, 1 tab, No Longer Oral Tablet Route: PO, Drug Active 2015 [facility] [Xanax] form: TAB, BID, [facility] Dosing Weight 93.182, kg, PRN Anxiety, Start date: 01/21/16 8:30:00 CDT, Duration: 30 day, Stop date: 02/20/16 8:29:00 CDTNotes: With food or milk (Same as: Xanax) Insulin regular 5 unit, Route: Inactive IV, ONCE, 2015 [facility] Dosing Weight [facility] 94.091, kg, Start date: 01/20/16 15:46:00 CDT, Stop date: 01/20/16 15:46:00 CDT Insulin regular 5 unit, Route: Inactive IV, ONCE, 2015 [facility] Dosing Weight [facility] 94.091, kg, Start date: 01/20/16 15:15:00 CDT, Stop date: 01/20/16 15:15:00 CDT Robaxin 750 mg, 7.5 mL, No Longer Route: IV, Q6H, Active 2015 [facility] Dosing Weight [facility] 94.091, kg, Start date: 01/20/16 12:00:00 CDT, Duration: 30 day, Stop date: 02/19/16 15:00:00 CDTNotes: (Same as:Robaxin) Pepcid 20 mg, 1 tab, No Longer Route: PO, Drug Active 2015 [facility] form: TAB, City Daily, Dosing Weight 94.091, kg, Start date: 01/20/16 9:00:00 CDT, Stop date: 02/19/16 9:00:00 CDTNotes: (Same as: Pepcid) Docusate Sodium 100 mg, 1 cap, No Longer 100 MG Oral Route: PO, Drug Active 2015 [facility] Capsule [Colace] form: CAP, BID, [facility] Dosing Weight 94.091, kg, Start date: 01/20/16 9:00:00 CDT, Duration: 30 day, Stop date: 02/18/16 17:00:00 CDTNotes: (Same as: Colace) (Do Not Crush) Naloxone 0.04 mg, 0.1 Inactive mL, Route: IVP2015 [facility] Drug form: INJ, City Q2MIN, Dosing Weight 94.091, kg, PRN Narcotic Reversal, Start date: 01/20/16 8:08:00 CDT, Duration: 8 doses or times, Stop date: Limited # of timesNotes: Same as Narcan Flumazenil 0.2 mg, 2 mL, Inactive Route: IV2015 [facility] Drug form: INJ, City PRN, Dosing Weight 94.091, kg, PRN Benzodiazepine Reversal, Initial dose, Start date: 01/20/16 8:08:00 CDT, Duration: 30 day, Stop date: 02/19/16 8:07:00 CDTNotes: (Same as: Romazicon) Ondansetron 4 mg, 2 mL, Inactive Route: IVP2015 [facility] Drug form: INJ, [place] ONCE, Dosing Weight 94.091, kg, PRN Nausea & Vomiting, Start date: 01/20/16 8:08:00 CDTNotes: (Same as: Lorraine) MEDICATION WASTE Product Size: 4 mg Product Wasted: ___ mg Morphine 4 mg, 0.4 mL, Inactive Route: IV2015 [facility] Drug form: INJ, City Q5Min, Dosing Weight 94.091, kg, PRN Pain Score 7-10, Start date: 01/20/16 8:08:00 CDT, Duration: 3 doses or times, Stop date: Limited # of timesNotes: (Same as:MORPhine Sulfate) Meperidine 12.5 mg, 0.25 Inactive mL, Route: IV2015 [facility] Drug form: INJ, [place] Q30Min, Dosing Weight 94.091, kg, PRN Other -See Comment, For shivering, Start date: 01/20/16 8:08:00 CDT, Duration: 2 doses or times, Stop date: Limited # of timesNotes: (Same As: Demerol) Labetalol 5 mg, 1 mL, Inactive Route: IV2015 [facility] Drug form: INJ, [facility] Q5Min, Dosing Weight 94.091, kg, PRN Elevated BP, Start date: 01/20/16 8:08:00 CDT, Duration: 5 doses or times, Stop date: Limited # of timesNotes: (Same as: Normodyne, Trandate) Push over 2 minutes Give bolus over 2-3 minutes. Morphine 30 mg, 30 mL, No Longer Route: IV, Active 2015 [facility] Loading 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 Dose: 1 mg, PRODUCT DEVELOPMENT CHEMIST Lockout: 10 minutes, Continuous Basal Rate: 0 mg, 4 Hour Limit (In MG): 30, Drug Form: INJ, Continuous, Start date: 01/20/16 7:30:00 CDT, Duration: 30 day, Stop date: 02/19/16 7...Notes: Dose: Delay: Basal rate: 4hr limit: (Same as:Amy-Wiley) Naloxone 0.04 mg, 0.1 No Longer mL, Route: IVP, Active 2015 [facility] Drug form: INJ, City Q2MIN, Dosing Weight 94.091, kg, PRN Narcotic Reversal, Start date: 01/20/16 7:27:00 CDT, Duration: 30 day, Stop date: 02/19/16 7:26:00 CDTNotes: Same as Narcan LR IV 1,000 mL 1,000 mL, Rate: No Longer 75 ml/hr, 2015 [facility] Infuse over: [facility] 13.3 hr, Route: IV, Dosing Weight 94.091 kg, Total Volume: 1,000, Start date: 01/20/16 7:26:00 CDT, Duration: 30 day, Stop date: 02/19/16 7:25:00 CDT Valium 5 mg, 1 mL, No Longer Route: IVP, [facility] 2015 [facility] Drug form: INJ, City BID, Dosing Weight 94.091, kg, PRN Muscle Spasms, Start date: 01/20/16 7:25:00 CDT, Duration: 30 day, Stop date: 02/19/16 7:24:00 CDTNotes: (Same as: Valium) WASTE: F/P - Black; E - White/Blue Zofran 4 mg, 2 mL, No Longer Route: IV, Drug [facility] 2015 [facility] form: INJ, Q6H, [facility] Dosing Weight 94.091, kg, PRN Nausea, Start date: 01/20/16 7:25:00 CDT, Duration: 30 day, Stop date: 02/19/16 7:24:00 CDTNotes: (Same as: Zofran) MEDICATION WASTE Product Size: 4 mg Product Wasted: ___ mg Flexeril 10 mg, 1 tab, No Longer Route: PO, Drug [facility] 2015 [facility] form: TAB, TID, [facility] Dosing Weight 94.091, kg, PRN Spasm, Start date: 01/20/16 7:25:00 CDT, Duration: 30 day, Stop date: 02/19/16 7:24:00 CDTNotes: (Same As: Flexeril) ceFAZolin 2 gm, 100 mL, No Longer Route: IVPB, [facility] 2015 [facility] Drug form: INJ, City ONCALL, Start date: 01/20/16 0:00:00 CDT, Duration: 20 hr, Stop date: 01/20/16 19:59:00 CDTNotes: Same as: Ancef glimepiride 2 mg 2 mg=1 tab, PO, No Longer oral tablet Breakfast, # 30 Active 2016 [facility] tab, [address] [facility] Refill(s) Acetaminophen 325 1 tab, PO, BID, No Longer MG / Hydrocodone PRN for pain, # Active 2016 [facility] Bitartrate 7.5 MG 42 tab, [address] [facility] Oral Tablet Refill(s) Metronidazole 500 500 mg=1 tab, Active [place] [facility] Oral Tablet PO, BID, X 7 2014 [facility] [Flagyl] day, # 14 tab, Center 0 Refill(s) Ciprofloxacin 500 500 mg=1 tab, Active [place] [facility] Oral Tablet PO, Q12H, X 7 2014 [Cipro] day, # 14 tab, Center 0 Refill(s) Levothroid 112 microgram, Inactive [place] 1 tab, Route: 2014 [facility] PO, Drug form: Center TAB, Daily, Dosing Weight 93.182, kg, Start date: 06/17/15 11:30:00, Duration: 30 day, Stop date: 07/17/15 7:30:00Notes: Take 1 hour before or 2 hours after meal; Enteral feeds may interefere with the absorption of this medication.(Chu e as:Levothroid) Lexapro 20 mg, 2 tab, Inactive [place] Route: PO, Drug 2014 [facility] form: TAB, Center Daily, Dosing Weight 93.182, kg, Start date: 06/17/15 9:00:00, Duration: 30 day, Stop date: 07/16/15 9:00:00Notes: (Same as: Lexapro) Protonix 40 mg, 1 tab, Inactive [place] Route: PO, Drug 2014 [facility] form: ECTAB, [place] Before Breakfast, Dosing Weight 93.182, kg, Start date: 06/17/15 8:05:00, Stop date: 07/16/15 7:30:00Notes: Tablet should not be chewed or crushed. (Same as: Protonix) PlasmaLyte A 1,000 mL, Rate: Inactive [facility] PH-7.4 1,000 mL 50 ml/hr, 2014 [facility] Infuse over: 20 Center hr, Route: IV, Dosing Weight 93.182 kg, Total Volume: 1,000, Start date: 06/17/15 8:03:00, Duration: 30 day, Stop date: 07/17/15 8:02:00 Calcium Chloride 500 mL, 250 Inactive [facility] 0.0014 MEQ/ML / ml/hr, Infuse 2014 [facility] Potassium Chloride Over: 2 hr, Center 0.004 MEQ/ML / Route: IV, 500, Sodium Chloride Drug form: INJ, 0.103 MEQ/ML / ONCE, Priority: Sodium Lactate Routine, Dosing 0.028 MEQ/ML Weight 93.182 Injectable kg, Start date: Solution 06/17/15 7:15:00, Duration: 1 doses or times, Stop date: 06/17/15 7:15:00 Alprazolam 1 MG 1 mg, 2 tab, Inactive [facility] Oral Tablet Route: PO, Drug 2014 [facility] [Xanax] form: TAB, BID, Center Dosing Weight 93.182, kg, PRN as needed for anxiety, Start date: 06/17/15 7:13:00, Duration: 30 day, Stop date: 07/17/15 7:12:00Notes: With food or milk (Same as: Xanax) D5W 1/2NS 1,000 mL 1,000 mL, Rate: Inactive [facility] 50 ml/hr, 2014 [facility] Infuse over: 20 Center hr, Route: IV, Dosing Weight 93.182 kg, Total Volume: 1,000, Start date: 06/17/15 6:59:00, Duration: 30 day, Stop date: 07/17/15 6:58:00 Tylenol 650 mg, 20.3 No Longer [facility] mL, Route: PO, Active 2014 [facility] Drug form: LIQ, Center BID, Dosing Weight 93.182, kg, Start date: 06/16/15 18:21:00, Duration: 30 day, Stop date: 07/16/15 17:00:00Notes: Max acetaminophen=4 000mg/day (4 gm/day). (Same as: Tylenol) Dilaudid 0.2 mg, 0.1 mL, No Longer [place] Route: IV, Drug Active 2014 [facility] form: INJ, Q4H, Center Dosing Weight 93.182, kg, PRN Pain Score 7-10, Start date: 06/16/15 18:18:00, Duration: 30 day, Stop date: 07/16/15 18:17:00Notes: Same as: Dilaudid Ondansetron 4 mg, 2 mL, No Longer [place] Route: IV, Drug Active 2014 [facility] form: INJ, Q4H, Center Dosing Weight 93.182, kg, PRN Nausea, Start date: 06/16/15 18:17:00, Duration: 30 day, Stop date: 07/16/15 18:16:00Notes: (Same as: Lorraine) MEDICATION WASTE Product Size: 4 mg Product Wasted: 0 mg Sodium Chloride IV, 166.67 Inactive [place] 0.9% IV ml/hr, ONCE, 2014 Medical Start date: Center 06/16/15 6:30:00, 500 ml sodium chloride 980.75 mL, No Longer [place] 23.4% IV 77 mEq + Rate: 50 ml/hr, Active 2014 [facility] D10W 980.75 mL Infuse over: 20 Center hr, Route: IV, Dosing Weight 93.182 kg, Total Volume: 1,000, Start date: 06/16/15 5:46:00, Stop date: 07/16/15 5:45:00 Sodium Chloride 500 mL, Infuse Inactive [facility] 0.154 MEQ/ML Over: 3 hr, 2015 Medical Injectable Route: IV, Center Solution ONCE, Dosing Weight 93.182 kg, Start date: 06/16/15 5:45:00, Stop date: 06/16/15 5:45:00 D10W 980.75 mL + 980.75 mL, Inactive [facility] sodium chloride Rate: 125 2014 [facility] 23.4% IV 77 mEq ml/hr, Infuse Center over: 7.8 hr, Route: IV, Dosing Weight 93.182 kg, Total Volume: 980.75, Start date: 06/16/15 5:43:00, Duration: 1 doses or times, Stop date: 06/16/15 13:30:00 sodium chloride 980.75 mL, Inactive [place] 23.4% IV 77 mEq + Rate: 100 2014 [facility] D10W 980.75 mL ml/hr, Infuse Center over: 10 hr, Route: IV, Dosing Weight 93.182 kg, Total Volume: 1,000, Start date: 06/16/15 4:16:00, Duration: 1 doses or times, Stop date: 06/16/15 14:15:00 heparin 5,000 unit, 1 No Longer [place] mL, Route: Active 2014 [facility] SUB-Q, Drug Center form: INJ, Q8H, Dosing Weight 93.182, kg, Start date: 06/16/15 0:00:00, Duration: 30 day, Stop date: 07/15/15 16:00:00Notes: porcine heparin Sodium Chloride 500 mL, 500 No Longer [place] 0.154 MEQ/ML ml/hr, Infuse Active 2014 [facility] Injectable Over: 1 hr, Center Solution Route: IV, 500, Drug form: INJ, ONCE, Priority: STAT, Dosing Weight 93.182 kg, Start date: 06/15/15 23:38:00, Duration: 1 doses or times, Stop date: 06/15/15 23:38:00 Insulin regular 5 unit, 0.05 No Longer [place] mL, Route: Active 2014 [facility] SUB-Q, Drug Center form: SOLN, Sliding Scale, Dosing Weight 93.182, kg, PRN Blood Glucose Results, Start date: 06/15/15 23:34:00, Duration: 30 day, Stop date: 07/15/15 23:33:00Notes: (Same as: Humulin R) Roll in palms of hands gently; Do not shake vigorously. "single patient use only" (Restricted to patients requiring a dose > 60 units) Stable for 28 days at room temperature Expires in days from D ate Dextrose 50% 12.5 gm, 25 mL, No Longer [place] Syringe Route: IVP, Active 2014 [facility] Drug Form: INJ, Center Dosing Weight 93.182, kg, PRN, PRN Blood Glucose Results, Start date: 06/15/15 23:34:00, Duration: 30 day, Stop date: 07/15/15 23:33:00 Glucagon 1 mg, Route: No Longer [facility] IM, Drug form: Active 2014 Medical PDR/INJ, PRN, Center Dosing Weight 93.182, kg, PRN Blood Glucose Results, Start date: 06/15/15 23:34:00, Duration: 30 day, Stop date: 07/15/15 23:33:00 Dextrose 50% 25 gm, 50 mL, Inactive [facility] Syringe Route: IVP, 2014 [facility] Drug Form: INJ, Center Dosing Weight 93.182, kg, PRN, PRN Blood Glucose Results, Start date: 06/15/15 23:22:00, Duration: 30 day, Stop date: 07/15/15 23:21:00 Glucagon 1 mg, Route: Inactive [facility] IM, Drug form: 2014 Medical PDR/INJ, PRN, Center Dosing Weight 93.182, kg, PRN Blood Glucose Results, Start date: 06/15/15 23:22:00, Duration: 30 day, Stop date: 07/15/15 23:21:00 Dilaudid 0.2 mg, 0.1 mL, No Longer [facility] Route: IV, Drug Active 2014 [facility] form: INJ, Q4H, Center Dosing Weight 93.182, kg, PRN Pain Score 7-10, Start date: 06/15/15 23:20:00, Duration: 30 day, Stop date: 07/15/15 23:19:00Notes: Same as: Dilaudid cefepime 1 gm, Route: No Longer [facility] IVPB, Drug Active 2014 Medical form: INJ, Center [id number], Dosing Weight 93.182, kg, (CrCl 10 - 29 ml/min), Start date: 06/15/15 23:00:00, Duration: 30 day, Stop date: 07/14/15 23:00:00Notes: (Same As: Maxipime) MEDICATION WASTE Product Size: 1000 mg Product Wasted: ___ mg Flagyl 500 mg, 100 mL, No Longer [facility] Route: IVPB, Active 2014 Medical Drug form: INJ, Center [id number], Dosing Weight 93.182, kg, Start date: 06/15/15 23:00:00, Duration: 30 day, Stop date: 07/15/15 17:00:00Notes: (Same as: Flagyl) Avoid alcohol. Vancomycin 1 gm, Route: No Longer [facility] IVPB, Drug Active 2014 Medical form: INJ, Center [id number], Dosing Weight 93.182, kg, Start date: 06/15/15 23:00:00, Duration: 30 day, Stop date: 07/14/15 23:00:00Notes: TIME CRITICAL MEDICATION (Same As: Vancocin) Infusion rate 2001 mg: infuse over 2.5 hours MEDICATION WASTE Product Size: 1000 mg Product Wasted: ___ mg normal saline 0.9% 1,000 mL, Rate: No Longer [place] IV 1,000 mL 100 ml/hr, Active 2014 Medical Infuse over: 10 Center hr, Route: IV, Dosing Weight 93.182 kg, Total Volume: 1,000, Start date: 06/15/15 22:19:00, Duration: 30 day, Stop date: 07/15/15 22:18:00 Dextrose 50% 12.5 gm, Route: Inactive [facility] Syringe IVP, Dosing 2014 Medical Weight 93.182, Center kg, ONCE, STAT, Start date: 06/15/15 21:55:00, Stop date: 06/15/15 21:55:00 Levothyroxine 112 microgram=1 Active [facility] Sodium 0.112 MG tab, PO, Daily, 2014 Medical Oral Tablet # 30 tab, 0 Center [Levothroid] Refill(s) Metolazone 5 MG 5 mg=1 tab, PO, Active [facility] Oral Tablet Daily [address] [facility] glyBURIDE 5 mg 5 mg=1 tab, PO, Active [facility] oral tablet BID-Meals, # 60 2014 Medical tab, 1 Center Refill(s) Alprazolam 1 MG 1 mg, 2 tab, Inactive [facility] Oral Tablet Route: PO, Drug 2014 Medical [Xanax] form: TAB, TID, Center Dosing Weight 104.545, kg, PRN Anxiety, Start date: 05/09/15 4:04:00, Duration: 30 day, Stop date: 06/08/15 4:03:00Notes: With food or milk (Same as: Xanax) Saline Flush 0.9% 10 mL, Route: No Longer [facility] IVP, Drug Form: Active 2014 Medical INJ, Dosing Center Weight 104.545, kg, Q8H, Start date: 05/08/15 16:00:00, Duration: 30 day, Stop date: 06/07/15 8:00:00Notes: (Same as: BD Posiflush) heparin 7,500 unit, 1.5 No Longer [facility] mL, Route: Active 2014 Medical SUB-Q, Drug Center form: INJ, Q8H, Start date: 05/08/15 16:00:00, Duration: 30 day, Stop date: 06/07/15 8:00:00Notes: porcine heparin lidocaine 1% 5 mL, Route: No Longer [facility] INTRADERM, Drug Active 2014 Medical Form: INJ, Center Dosing Weight 104.545, kg, ONCALL, Start date: 05/08/15 12:00:00, Duration: 1 doses or times, Stop date: 05/09/15 0:00:00Notes: (Same as: Xylocaine) Saline Flush 0.9% 10 mL, Route: No Longer [facility] IVP, Drug Form: Active 2014 Medical INJ, Dosing Center Weight 104.545, kg, PRN, PRN Line Flush, Start date: 05/08/15 11:22:00, Duration: 30 day, Stop date: 06/07/15 11:21:00Notes: (Same as: BD Posiflush) Dextrose 50% 25 gm, 50 mL, Inactive [facility] Syringe Route: IVP, 2014 Medical Drug Form: INJ, Center Dosing Weight 104.545, kg, ONCE, Start date: 05/08/15 7:22:00, Stop date: 05/08/15 7:22:00 D5W 1/2NS + KCL 1,000 mL, Rate: Inactive [facility] 20mEq/L 1000ml 100 ml/hr, 2015 Medical (Premix) 1,000 mL Infuse over: 10 Center hr, Route: IV, Dosing Weight 104.545 kg, Total Volume: 1,000, Start date: 05/08/15 7:12:00, Duration: 30 day, Stop date: 06/07/15 7:11:00Notes: PREMIX IV - Do Not Alter Ondansetron 4 mg, 2 mL, No Longer [place] Route: IVP, Active 2014 Medical Drug form: INJ, Center Q6H, Dosing Weight 104.545, kg, PRN Nausea & Vomiting, Start date: 05/08/15 7:07:00, Duration: 30 day, Stop date: 06/07/15 7:06:00Notes: (Same as: [place]) MEDICATION WASTE Product Size: 4 mg Product Wasted: ___ mg tramadol 50 mg=1 tab, Active [place] hydrochloride 50 PO, Q6H, PRN 2015 Medical MG Oral Tablet Pain, X 10 day, Center # 40 tab, 0 Refill(s) gabapentin 300 MG 300 mg=1 cap, Active [place] Oral Capsule PO, Daily, # 30 2014 Medical cap, 0 Center Refill(s) gabapentin 300 MG 300 mg=1 cap, Inactive [place] Oral Capsule PO, Daily, # 30 2014 Medical cap, 0 Center Refill(s) acetaminophen 325 325 mg=1 tab, Inactive [place] mg oral tablet PO, Q6H, PRN 2015 Medical Pain Score 1-3, Center # 24 tab, 0 Refill(s) iodixanol 90 mL, Route: Inactive [facility] IVP, Drug Form: 2014 Medical SOLN, Dosing Center Weight 103.182, kg, ONCALL, STAT, Start date: 04/30/15 12:11:00, Duration: 1 doses or times, Dose=2.2ml/kg, Max [id number] -- "To be infused by Radiology Staff ONLY"Special Instructions: Dose=2.2ml/kg, Max [id number] -- "To be infused by Radiology Staff ONLY" iodixanol 100 mL, Route: Inactive [place] IVP, Drug Form: 2014 Medical SOLN, Dosing Center Weight 103.182, kg, ONCALL, STAT, Start date: 04/30/15 7:02:00, Duration: 1 doses or times, Dose=2.2ml/kg, Max [id number] -- "To be infused by Radiology Staff ONLY"Special Instructions: Dose=2.2ml/kg, Max [id number] -- "To be infused by Radiology Staff ONLY"Notes: (Same as: Visipaque). Vitamin D2 50,000 50,000 Active [place] intl units oral IntlUnit=1 cap, 2014 Medical capsule PO, qWeek [place] Protonix 40 mg, 1 tab, No Longer [place] Route: PO, Drug Active 2014 Medical form: ECTAB, [place] Before Breakfast, Dosing Weight 103.182, kg, Start date: 04/29/15 7:30:00, Duration: 30 day, Stop date: 05/28/15 7:30:00Notes: Tablet should not be chewed or crushed. (Same as: Protonix) Acetaminophen 325 mg, 1 tab, No Longer [place] Route: PO, Drug Active 2014 Medical form: TAB, Q6H, Center Dosing Weight 103.182, kg, PRN Pain Score 1-3, Start date: 04/28/15 10:00:00, Duration: 30 day, Stop date: 05/28/15 9:59:00Notes: Do not exceed 4 gm/day. (Same as: Tylenol) Hydralazine 5 mg, 0.25 mL, No Longer [place] Route: IV, Drug Active 2014 Medical form: INJ, Q4H, Center Dosing Weight 103.182, kg, PRN Hypertension, Start date: 04/28/15 7:29:00, Duration: 30 day, Stop date: 05/28/15 7:28:00, Systolic BP > 160Notes: (Same as: Apresoline) Push over 5 minutes Albuterol 0.83 2.49 mg, 3 mL, No Longer [place] MG/ML Inhalant Route: NEB, Active 2014 Medical Solution Drug form: [place] SOLN, PRN, Dosing Weight 103.182, kg, PRN Respiratory Protocol, Start date: 04/27/15 14:53:00, Duration: 30 day, Stop date: 05/27/15 14:52:00Notes: SEE RT DOCUMENTATION (Same as: Proventil) remove patch 3 patch, Route: No Longer [place] TOP, Bedtime, Active 2014 Medical Drug form: Center ERFILM, Start date: 04/26/15 21:00:00, Duration: 30 day, Stop date: 05/25/15 21:00:00Notes: Remove patch 12 hours after application each day. Diltiazem 240 mg, Route: No Longer [place] PO, Drug form: Active 2014 Medical ERCAP, Daily, Center Dosing Weight 103.182, kg, Start date: 04/26/15 9:00:00, Duration: 30 day, Stop date: 05/25/15 9:00:00 Lidocaine 3 patch, Route: No Longer [place] Hydrochloride 0.05 TOP, Q24H, Drug Active 2014 Medical MG/MG Transdermal form: FILM, Center Patch [Lidoderm] Start date: 04/26/15 8:00:00, Duration: 30 day, Stop date: 05/25/15 8:00:00Notes: Apply only once for up to 12 hours in a 24-hour period (12 hours on and 12 hours off). (Same as: Lidoderm) "Remove old patch before application of new patch" Oxycodone 5 mg, 1 tab, No Longer [place] Hydrochloride 5 MG Route: PO, Drug Active 2014 Medical Oral Tablet form: TAB, Q4H, Center Dosing Weight 103.2, kg, PRN Pain Score 4-6, Start date: 04/26/15 7:47:00, Duration: 30 day, Stop date: 05/26/15 7:46:00Notes: (Same as: Roxicodone) Oxycodone 10 mg, 2 tab, No Longer [place] Hydrochloride 5 MG Route: PO, Drug Active 2014 Medical Oral Tablet form: TAB, Q4H, Center Dosing Weight 103.182, kg, PRN Pain Score 7-10, Start date: 04/26/15 7:46:00, Duration: 30 day, Stop date: 05/26/15 7:45:00Notes: (Same as: Roxicodone) Labetalol 10 mg, 2 mL, No Longer [place] Route: IVP, Active 2014 Medical Drug form: INJ, Center Q6H, Dosing Weight 103.182, kg, PRN Hypertension, Start date: 04/25/15 19:05:00, Duration: 30 day, Stop date: 05/25/15 19:04:00 Diltiazem 240 mg, 1 cap, No Longer [facility] Route: PO, Drug Active 2014 Medical form: ERCAP, Center Daily, Dosing Weight 103.182, kg, Priority: NOW, Start date: 04/25/15 19:03:00, Duration: 30 day, Stop date: 05/25/15 9:00:00Notes: (Same as: Cardizem CD) Before meals. DO NOT CRUSH. PlasmaLyte A 500 mL, 500 Inactive [facility] PH-7.4 (Bolus) IV ml/hr, Route: 2014 Medical IV, Drug Form: Center INJ, Dosing Weight 103.182, kg, ONCE, Start date: 04/25/15 19:01:00, Stop date: 04/25/15 19:01:00 PlasmaLyte A 1,000 mL, Rate: No Longer [facility] PH-7.4 1,000 mL 100 ml/hr, Active 2014 Medical Infuse over: 10 Center hr, Route: IV, Dosing Weight 103.182 kg, Total Volume: 1,000, Start date: 04/25/15 17:22:00, Duration: 30 day, Stop date: 05/25/15 17:21:00 PlasmaLyte A 1,000 mL, Rate: Inactive [facility] PH-7.4 1,000 mL 150 ml/hr, 2014 Medical Infuse over: Center 6.7 hr, Route: IV, Dosing Weight 103.182 kg, Total Volume: 1,000, Start date: 04/25/15 13:02:00, Duration: 30 day, Stop date: 05/25/15 13:01:00 Acetaminophen 1,000 mg, 100 No Longer [facility] mL, Route: Active 2014 Medical IVPB, Drug Center form: INJ, Q6Hnow, Dosing Weight 103.2, kg, Start date: 04/25/15 10:00:00, Duration: 30 day, Stop date: 05/25/15 4:00:00Notes: Infuse over 15 minutes Do not exceed 4gm/day of acetaminophen MEDICATION WASTE Product Size: 1000 mg Product Wasted: ___ mg Alprazolam 1 MG 1 mg, 2 tab, No Longer [facility] Oral Tablet Route: PO, Drug Active 2014 Medical [Xanax] form: TAB, BID, Center Dosing Weight 103.182, kg, PRN Anxiety, Start date: 04/25/15 9:11:00, Duration: 30 day, Stop date: 05/25/15 9:10:00Notes: With food or milk (Same as: Xanax) Maxipime 1 gm, Route: No Longer [facility] IVPB, Drug Active 2014 Medical form: INJ, Center [id number], Dosing Weight 103.182, kg, (CrCl 10 - 29 ml/min), Start date: 04/24/15 21:00:00, Duration: 30 day, Stop date: 05/23/15 21:00:00Notes: (Same As: Maxipime) MEDICATION WASTE Product Size: 1000 mg Product Wasted: ___ mg Tylenol 1,000 mg, 2 No Longer [facility] tab, Route: PO, Active 2014 Medical Drug form: TAB, Center Q6H, Dosing Weight 103.182, kg, Start date: 04/24/15 18:00:00, Duration: 30 day, Stop date: 05/24/15 12:00:00Notes: Max acetaminophen 4000 mg/day (4 gm/day). (Same as: Tylenol Extra Strength) Metoprolol 5 mg, 5 mL, No Longer 04/24[facility] Route: IVP, Active 2014 Medical Drug form: INJ, Center Q6H, Dosing Weight 103.182, kg, Start date: 04/24/15 11:00:00, Duration: 30 day, Stop date: 05/24/15 6:00:00Notes: (Same as: Lopressor) Push over 2 minutes gabapentin 300 mg, 1 cap, No Longer [facility] Route: PO, Drug Active 2014 Medical form: CAP, Center Daily, Dosing Weight 103.2, kg, Start date: 04/24/15 9:00:00, Duration: 30 day, Stop date: 05/23/15 9:00:00Notes: (Same as: Neurontin) Protonix 40 mg, Route: No Longer [facility] IVP, Drug form: Active 2014 Medical INJ, Daily, Center Dosing Weight 103.2, kg, Patient is NPO, Start date: 04/24/15 9:00:00, Duration: 30 day, Stop date: 05/23/15 9:00:00Notes: For IV push reconstitute with 10 ml 0.9% sodium chloride and push over 2 minutes. (Same as: Protonix) cefepime 1 gm, Route: Inactive [facility] IVPB, Drug 2014 Medical form: INJ, Center [id number], Dosing Weight 103.182, kg, (CrCl 10 - 29 ml/min), Start date: 04/24/15 9:00:00, Duration: 30 day, Stop date: 05/23/15 9:00:00Notes: (Same As: Maxipime) MEDICATION WASTE Product Size: 1000 mg Product Wasted: ___ mg phenol 1 spray, Route: No Longer [facility] TOP, Daily, Active 2014 Medical Drug form: Center SPRY, PRN Sore Throat, Start date: 04/24/15 8:40:00, Duration: 30 day, Stop date: 05/24/15 8:39:00Notes: Chloraseptic [place] (Same as: Chloraseptic, Sore Throat [place]) heparin 5,000 unit, 1 No Longer [facility] mL, Route: Active 2014 Medical SUB-Q, Drug Center form: INJ, Q8H, Dosing Weight 103.2, kg, Start date: 04/24/15 8:00:00, Duration: 30 day, Stop date: 05/24/15 1:30:00Notes: porcine heparin Saline Flush 0.9% 10 ml, Route: No Longer [facility] IVP, Drug Form: Active 2014 Medical INJ, Dosing Center Weight 103.2, kg, Q12H, Start date: 04/23/15 21:00:00, Duration: 30 day, Stop date: 05/23/15 9:00:00Notes: (Same as: BD Posiflush) Vancomycin 1 gm, Route: No Longer [facility] IVPB, Drug Active 2014 Medical form: INJ, Center [id number], Dosing Weight 103.2, kg, Start date: 04/23/15 20:00:00, Duration: 30 day, Stop date: 05/23/15 8:00:00 cefepime 1 gm, Route: No Longer [facility] IVPB, [id number], Active 2014 Medical Dosing Weight Center 103.2, kg, (CrCl 30 - 49 ml/min), Start date: 04/23/15 20:00:00, Duration: 30 day, Stop date: 05/23/15 8:00:00 Flagyl 500 mg, 100 mL, No Longer [facility] Route: IVPB, Active 2014 Medical Drug form: INJ, Center [id number], Dosing Weight 103.2, kg, Start date: 04/23/15 20:00:00, Duration: 30 day, Stop date: 05/23/15 12:00:00Notes: (Same as: Flagyl) Avoid alcohol. Saline Flush 0.9% 10 ml, Route: No Longer [facility] IVP, Drug Form: Active 2014 Medical INJ, Dosing Center Weight 103.2, kg, PRN, PRN Line Flush, Start date: 04/23/15 19:16:00, Duration: 30 day, Stop date: 05/23/15 19:15:00Notes: (Same as: BD Posiflush) Insulin, Aspart, 4 unit, 0.04 No Longer [facility] Human mL, Route: Active 2014 Medical SUB-Q, Drug Center form: SOLN, Bedtime, Dosing Weight 103.2, kg, PRN Blood Glucose Results, Start date: 04/23/15 19:16:00, Duration: 30 day, Stop date: 05/23/15 19:15:00Notes: Roll in palms of hands gently; Do not shake vigorously. (Same as: NovoLOG) "single patient use only" Stable for 28 days at room temperature. Expires in days from D ate Sodium Chloride 1,000 mL, Rate: No Longer [facility] 0.154 MEQ/ML 100 ml/hr, Active 2014 Medical Injectable Infuse over: 10 Center Solution hr, Route: IV, Dosing Weight 103.2 kg, Total Volume: 1,000, Start date: 04/23/15 19:16:00, Duration: 30 day, Stop date: 05/23/15 19:15:00 Glucagon 1 mg, Route: No Longer [facility] IM, Drug form: Active 2014 Medical PDR/INJ, PRN, Center Dosing Weight 103.2, kg, PRN Blood Glucose Results, Start date: 04/23/15 19:16:00, Duration: 30 day, Stop date: 05/23/15 19:15:00 Dextrose 50% 25 gm, 50 mL, No Longer [facility] Syringe Route: IVP, Active 2014 Medical Drug Form: INJ, Center Dosing Weight 103.2, kg, PRN, PRN Blood Glucose Results, Start date: 04/23/15 19:16:00, Duration: 30 day, Stop date: 05/23/15 19:15:00 Ondansetron 4 mg, 2 mL, No Longer [facility] Route: IVP, Active 2014 Medical Drug form: INJ, Center Q6H, Dosing Weight 103.2, kg, PRN Nausea & Vomiting, Start date: 04/23/15 19:16:00, Duration: 30 day, Stop date: 05/23/15 19:15:00Notes: (Same as: [place]) MEDICATION WASTE Product Size: 4 mg Product Wasted: ___ mg Acetaminophen 1,000 mg, 100 No Longer [facility] mL, Route: Active 2014 Medical IVPB, Drug Center form: INJ, Q6Hnow, Dosing Weight 103.2, kg, Start date: 04/23/15 15:00:00, Duration: 30 day, Stop date: 05/23/15 9:00:00Notes: Infuse over 15 minutes Do not exceed 4gm/day of acetaminophen MEDICATION WASTE Product Size: 1000 mg Product Wasted: ___ mg Melatonin 3 mg, 1 tab, No Longer [facility] Route: PO, Drug Active 2014 Medical form: TAB, Center Bedtime, Dosing Weight 103.2, kg, PRN Insomnia, Start date: 04/23/15 14:22:00, Duration: 30 day, Stop date: 05/23/15 14:21:00Notes: (Same as: Melatonin) Acetaminophen 1,000 mg, Inactive [place] Route: PO, 2014 Medical Q6Hnow, Dosing Center Weight 103.2, kg, Start date: 04/23/15 14:00:00, Duration: 30 day, Stop date: 05/23/15 8:00:00 Oxycodone 5 mg, Route: Inactive [place] Hydrochloride 5 MG PO, Drug form: 2014 Medical Oral Tablet TAB, Q6H, Center Dosing Weight 103.2, kg, PRN, Start date: 04/23/15 13:22:00, Duration: 30 day, Stop date: 05/23/15 13:21:00, Pain Score 4-10 Naloxone 0.1 mg, 0.25 No Longer [place] mL, Route: IVP, Active 2014 Medical Drug form: INJ, Center Q2MIN, Dosing Weight 103.2, kg, PRN Narcotic Reversal, Start date: 04/23/15 11:16:00, Duration: 8 doses or times, Stop date: Limited # of timesNotes: Same as Narcan Fentanyl / Route: No Longer [place] ropivacaine EPIDURAL, Active [address] [facility] Continuous Center Rate: 8, ml/hr, Infusion site: Thoracic, [employer] CHEMI[employer] dose 5 mL, [employer]MI[employer] dose lockout: 20 minutes, 1 Hour limit: 20 mL, 200, mL, Start date: 04/23/15 11:16:00, Drug Form: INJ, Total volume: 200, mL, kg, Stop date: 05/23/15 11:15:00Notes: (Same as Naropin-Sublima ze) scopolamine 1 patch, Route: No Longer [facility] TOP, Drug form: Active 2014 Medical ERFILM, PRE OP, Center Start date: 04/22/15 23:00:00, Duration: 1 day, Stop date: 04/23/15 22:59:00Notes: Change patch every 72 hours (Same as: Transderm-Scop) Ofirmev 1 gm, 100 mL, No Longer [facility] Route: IV, Drug Active 2014 Medical form: INJ, PRE Center OP, Start date: 04/22/15 23:00:00, Duration: 1 day, Stop date: 04/23/15 22:59:00Notes: Infuse over 15 minutes Do not exceed 4gm/day of acetaminophen MEDICATION WASTE Product Size: 1000 mg Product Wasted: ___ mg INVanz 1 gm, Route: No Longer 04/23/ [facility] IV, Drug form: Active 2014 Medical INJ, PRE OP, Center Start date: 04/22/15 23:00:00, Duration: 1 day, Stop date: 04/23/15 22:59:00Notes: (Same as: INVanz) Refrigerate. NOT COMPATIBLE WITH D5W. Stable in refrigerator for 24 hours MEDICATION WASTE Product Size: 1000 mg Product Wasted: ___ mg diltiazem 240 240 mg=1 cap, Active 04/16/ [facility] mg/24 hours oral PO, Daily, # 30 2014 Medical capsule, extended cap, 0 Center release Refill(s) Allergies, Adverse Reactions, Alerts Substance Category Reaction Severity Reaction Status Date Comments Source type Reported iodinated Assertion Drug Active Data [facility] radiocontrast allergy 5 migrated Medical dyes<sup>1</s from Center up> [facility]ric[facility] on 05/13/15. Originally documented as IV CONTRAST. NKDA Assertion Drug Active [facility] Immunizations Immunization Date Site Status Last Updated Comments Source Given influenza virus Right completed [place] vaccine, 6 Deltoid [place], inactivated [facility] pneumococcal Right completed [place] OPID 23-valent 2 deltoid [facility] Right completed [place] OPID 23-valent 2 deltoid [facility], [facility] [place],[facility] pneumococcal Right completed [place] OPID 23-valent 2 deltoid [facility], [facility] [place], OPID [place] pneumococcal Right completed [place] OPID 23-valent 2 deltoid [facility], [facility] [place] pneumococcal 08/24/201 Right completed [place] OPID 23-valent 2 deltoid [facility] Results Order Name Results Value Reference Date Interpretation Comments Source Range Abdomen Abdomen Soft EXAM: US Soft Tissue Head/Neck 05/10 - OPID Soft Tissue Tissue US /2017 - [place] US DATE: 05/10/2018 10:51 AM CDT Read by: Russ Romero MD Dictated Date/time: 05/10/18 13:55 Electronically Signed by: Russ Romero MD 05/10/18 13:58 FINAL REPORT INDICATION: - - B95.8 Unspecified staphylococcus as the cause of diseases classified elsewhere ADDITIONAL INFORMATION: None. COMPARISON: Abdominal soft tissue ultrasound 04/01/2018. TECHNIQUE: Multiplanar grayscale and color Doppler ultrasound of the soft tissues in the area of clinical concern were done. FINDINGS: There has been interval resolution of the previously seen subcutaneous fluid collection within the midline abdominal wall that measured 5.8 x 2.2 x 6.0 cm and a similar sized collection. IMPRESSION: 1. Interval resolution of the subcutaneous complex abdominal fluid collections. Abdomen Abdomen EXAM: VIR CT Guided Abscess Drainage 04/04 - [facility] Abscess w Abscess - Medical drainage drainage CT DATE: 04/04/2018 5:07 PM CDT This report was dictated by a Coat Operator/Fellow. I have personally reviewed the images as Center CT well as the Resident's interpretation and agree with the findings. PROCEDURE(S) PERFORMED: CT-guided anterior abdominal wall abscess drainage Read by: Quan Shaw MD Resident: Quan Shaw MD Dictated Date/time: 04/04/18 17:56 INDICATION: 62 years year-old Female with multiple anterior abdominal wall abscesses Electronically Signed by: Glenn Valdez MD 04/06/18 10:11 FINAL REPORT PRE-PROCEDURE DIAGNOSIS: Anterior abdominal wall abscess POST-PROCEDURE DIAGNOSIS: Same FACULTY: Glenn Valdez MD RESIDENT/FELLOW/DIRECTOR TRANSLATION: Quan Shaw MD ANESTHESIA/SEDATION: Moderate sedation SPECIMEN: Approximately 8 cc of purulent material DRAINS: None placed today. The existing drain remains in place. ESTIMATED BLOOD LOSS: Minimal. COMPLICATIONS: No immediate competitions. RADIATION DOSE: 901.6 mGy PROCEDURE/FINDINGS: The risks, benefits, and alternatives of the procedure were discussed, including the possibility of nondiagnostic sampling, and the patient's questions and concerns were addressed. Written consent was then obtained. Patient was placed in supine position. A formal time-out procedure was completed. Preliminary CTscan was then performed with a radiopaque grid in place, demonstrating an anterior abdominal wall abscess amenable to percutaneous aspiration. A safe needle entry pathway was selected, and the overlying skin was marked. The anterior abdominal wall was then prepped and draped in standard sterile fashion. Maximal sterile barrier precautions were used. Subsequently, after 1% lidocaine local anesthesia, a 18-gauge needle was advanced into the targeted collection under CT guidance. Position was confirmed with aspiration of a small amount of purulent fluid. Following this, a total of 8 mL of purulent fluid were aspirated, and a sample sent for culture. No new drain was placed since the amount of fluid is less than 10 mL have nearly resolved the fluid there. The patient appeared to tolerate the procedure well. IMPRESSION: Successful CT-guided percutaneous anterior abdominal wall abscess drainage with 8 mL of purulent fluid aspirated and sent for culture. Dr. Glenn Valdez MD was present for the procedure. Abdomen Abdomen Soft EXAM: Abdominal wall ultrasound 04/01 - [facility] Soft Tissue Tissue US /2018 - Medical US This report was dictated by a Coat Operator/Fellow. I have personally reviewed the images as Center well as the Resident's interpretation and agree with the findings. Read by: Camilo Segundo MD Resident: Camilo Segundo MD Dictated Date/time: 04/01/18 17:14 DATE: 04/01/2018 11:25 AM CDT Electronically Signed by: Raza Collins MD 04/02/18 07:27 FINAL REPORT INDICATION: - r/o abdominal abscess ADDITIONAL INFORMATION: None. COMPARISON: CT from 03/22/2018 TECHNIQUE: Multiple longitudinal and transverse images of the right midline abdominal wall were obtained FINDINGS: Two complex fluid collections in the anterior abdominal wall, compatible with abscesses. The more superficial collection is just right of midline and measures 6.0 x 2.9 x 6.2 cm. A drain is in place within this collection. The second collection which is deep and medial to the first collection measures 6.0 x 5.8 x 2.2 cm. IMPRESSION: Two complex fluid collections in the anterior abdominal wall, compatible with abscesses. The more superficial collection is just right of midline and measures 6.0 x 2.9 x 6.2 cm. A drain is in place wit hin this collection. The second collection which is deep and medial to the first collection measures 6.0 x 5.8 x 2.2 cm. CVC remove CVC remove EXAM: 03/29 - [facility] tunnel tunnel /2018 - Medical w/-w/o w/-w/o VIR tunneled dialysis venous catheter exchange This report was dictated by a Coat Operator/Fellow. I have personally reviewed the images as Center port/pump port/pump VR well as the Resident's interpretation and agree with the findings. VR VIR tunneled central catheter placement Read by: Kaiser Messer MD Resident: Kaiser Messer MD Dictated Date/time: 03/29/18 21:56 Electronically Signed by: Riaz Galvan MD 03/30/18 11:32 FINAL REPORT DATE: 03/29/2018 6:27 PM CDT PROCEDURE(S) PERFORMED: INDICATION: 62 years old Female with ESRD FACULTY: Riaz Galvan MD RESIDENT/FELLOW/DIRECTOR TRANSLATION: Kaiser Messer SUPERVISION: Level 1 Direct supervision: The supervising provider is physically present with the patient during the procedure. ANESTHESIA/SEDATION: Moderate sedation PHYSICIAN SUPERVISED ANESTHESIA TIME: 30 min SPECIMEN: None DRAINS: None ESTIMATED BLOOD LOSS: Less than 10 cc COMPLICATIONS: None immediate FLUOROSCOPY TIME: 1.9 min RADIATION DOSE: 19.8 mGy PROCEDURE: After the risks, benefits, and alternatives of the procedure were explained to the patient, verbal and written consent were obtained and a copy was placed in the chart. A time-out was performed. IV Vers ed and Fentanyl were titrated for moderate sedation by a trained observer. Two glidewires were placed in the right chest wall tunneled catheter into the IVC. Next, approximately 5 cc of lidocaine with epinephrine was utilized subcutaneously for local anesthesia. Blunt dissecti on was used to free the cuff of the catheter. The catheter was removed over the wires. A new 19 cm catheter was placed over the two wires with tip at the cavoatrial junction. The catheter hubs were secured to the catheter with the locking device. Satisfactory flow through the system was confirmed with saline flush. The venotomy site was closed with absorbable suture. The catheter was secured to the skin with 2-0 Prolene and an antibiotic disc was placed at the exit site. The catheter ports were packed with Heparin (1000 placement units/ml) and sterile caps were placed. An antiseptic dressing was applied. The patient was discharged to the recovery area in stable condition. Next, preliminary sonography confirmed a patent right internal jugular vein. The right lower neck and upper chest were prepped and draped in the usual sterile fashion. 1% Lidocaine with epinephrine was used to anesthetize the subcutaneous tissues overlying the right jugular vein. Under ultrasound guidance, the right internal jugular vein was cannulated with a 21 gauge micropuncture needle.. Real-time ultrasound was used to visualize the needle entry into the vessel and a permane nt recording was made. A guidewire was advanced into the inferior vena cava under fluoroscopic guidance. The needle was exchanged for a peel-away sheath. The catheter was deployed through the peel-away sheath and the catheter tip was positioned in the upper right atrium under fluoroscopic visualization. The catheter was tunneled subcutaneously to a subclavicular exit site. The catheter hubs were secured to the catheter with the locking device. Satisfactory flow through the system was confirmed with saline flush. The catheter was secured to the skin with 2-0 Prolene. The c atheter ports were packed with Heparin (1000 placement units/ml) and sterile caps were placed. An antiseptic dressing was applied. The patient was discharged to the recovery area in stable condition. FINDINGS: The right internal jugular vein is patent by compression. Image documentation is maintained in the permanent medical record. A 20 cm tunneled catheter was placed. The tip of the catheter was positioned in the cavoatrial junction using fluoroscopic guidance. The 19 cm tunneled dialysis catheter was exchanged successfully with tip in the right atrium. IMPRESSION: 1. Right internal jugular vein tunneled catheter (Proline catheter) was placed without complication. 2. Right internal jugular vein tunneled dialysis catheter exchanged without complication Dr. Riaz Galvan MD was present for the procedure. CVC insert CVC insert EXAM: 03/29 - [facility] tunnel tunnel /2018 - Medical w/-w/o w/-w/o VIR tunneled dialysis venous catheter exchange This report was dictated by a Coat Operator/Fellow. I have personally reviewed the images as Center port/pump port/pump well as the Resident's interpretation and agree with the findings. age < 5 yrs age < 5 yrs VIR tunneled central catheter placement Read by: Kaiser Messer MD Resident: Kaiser Messer MD VR VR Dictated Date/time: 03/29/18 21:56 Electronically Signed by: Riaz Galvan MD 03/30/18 11:32 FINAL REPORT DATE: 03/29/2018 6:27 PM CDT PROCEDURE(S) PERFORMED: INDICATION: 62 years old Female with ESRD FACULTY: Riaz Galvan MD RESIDENT/FELLOW/DIRECTOR TRANSLATION: Kaiser Messer SUPERVISION: Level 1 Direct supervision: The supervising provider is physically present with the patient during the procedure. ANESTHESIA/SEDATION: Moderate sedation PHYSICIAN SUPERVISED ANESTHESIA TIME: 30 min SPECIMEN: None DRAINS: None ESTIMATED BLOOD LOSS: Less than 10 cc COMPLICATIONS: None immediate FLUOROSCOPY TIME: 1.9 min RADIATION DOSE: 19.8 mGy PROCEDURE: After the risks, benefits, and alternatives of the procedure were explained to the patient, verbal and written consent were obtained and a copy was placed in the chart. A time-out was performed. IV Vers ed and Fentanyl were titrated for moderate sedation by a trained observer. Two glidewires were placed in the right chest wall tunneled catheter into the IVC. Next, approximately 5 cc of lidocaine with epinephrine was utilized subcutaneously for local anesthesia. Blunt dissecti on was used to free the cuff of the catheter. The catheter was removed over the wires. A new 19 cm catheter was placed over the two wires with tip at the cavoatrial junction. The catheter hubs were secured to the catheter with the locking device. Satisfactory flow through the system was confirmed with saline flush. The venotomy site was closed with absorbable suture. The catheter was secured to the skin with 2-0 Prolene and an antibiotic disc was placed at the exit site. The catheter ports were packed with Heparin (1000 placement units/ml) and sterile caps were placed. An antiseptic dressing was applied. The patient was discharged to the recovery area in stable condition. Next, preliminary sonography confirmed a patent right internal jugular vein. The right lower neck and upper chest were prepped and draped in the usual sterile fashion. 1% Lidocaine with epinephrine was used to anesthetize the subcutaneous tissues overlying the right jugular vein. Under ultrasound guidance, the right internal jugular vein was cannulated with a 21 gauge micropuncture needle.. Real-time ultrasound was used to visualize the needle entry into the vessel and a permane nt recording was made. A guidewire was advanced into the inferior vena cava under fluoroscopic guidance. The needle was exchanged for a peel-away sheath. The catheter was deployed through the peel-away sheath and the catheter tip was positioned in the upper right atrium under fluoroscopic visualization. The catheter was tunneled subcutaneously to a subclavicular exit site. The catheter hubs were secured to the catheter with the locking device. Satisfactory flow through the system was confirmed with saline flush. The catheter was secured to the skin with 2-0 Prolene. The c atheter ports were packed with Heparin (1000 placement units/ml) and sterile caps were placed. An antiseptic dressing was applied. The patient was discharged to the recovery area in stable condition. FINDINGS: The right internal jugular vein is patent by compression. Image documentation is maintained in the permanent medical record. A 20 cm tunneled catheter was placed. The tip of the catheter was positioned in the cavoatrial junction using fluoroscopic guidance. The 19 cm tunneled dialysis catheter was exchanged successfully with tip in the right atrium. IMPRESSION: 1. Right internal jugular vein tunneled catheter (Proline catheter) was placed without complication. 2. Right internal jugular vein tunneled dialysis catheter exchanged without complication Dr. Riaz Galvan MD was present for the procedure. CVC insert CVC insert EXAM: 03/29 - [facility] tunnel /2018 - Medical w/-w/o w/-w/o VIR tunneled dialysis venous catheter exchange This report was dictated by a Coat Operator/Fellow. I have personally reviewed the images as Center port/pump port/pump well as the Resident's interpretation and agree with the findings. age 5+ yrs age 5+ yrs VIR tunneled central catheter placement Read by : Kaiser Messer MD Resident: Kaiser Messer MD VR Dictated Date/time: 03/29/18 21:56 Electronically Signed by: Riaz Galvan MD 03/30/18 11:32 FINAL REPORT DATE: 03/29/2018 6:27 PM CDT PROCEDURE(S) PERFORMED: INDICATION: 62 years old Female with ESRD FACULTY: Riaz Galvan MD RESIDENT/FELLOW/DIRECTOR TRANSLATION: Kaiser Messer SUPERVISION: Level 1 Direct supervision: The supervising provider is physically present with the patient during the procedure. ANESTHESIA/SEDATION: Moderate sedation PHYSICIAN SUPERVISED ANESTHESIA TIME: 30 min SPECIMEN: None DRAINS: None ESTIMATED BLOOD LOSS: Less than 10 cc COMPLICATIONS: None immediate FLUOROSCOPY TIME: 1.9 min RADIATION DOSE: 19.8 mGy PROCEDURE: After the risks, benefits, and alternatives of the procedure were explained to the patient, verbal and written consent were obtained and a copy was placed in the chart. A time-out was performed. IV Vers ed and Fentanyl were titrated for moderate sedation by a trained observer. Two glidewires were placed in the right chest wall tunneled catheter into the IVC. Next, approximately 5 cc of lidocaine with epinephrine was utilized subcutaneously for local anesthesia. Blunt dissecti on was used to free the cuff of the catheter. The catheter was removed over the wires. A new 19 cm catheter was placed over the two wires with tip at the cavoatrial junction. The catheter hubs were secured to the catheter with the locking device. Satisfactory flow through the system was confirmed with saline flush. The venotomy site was closed with absorbable suture. The catheter was secured to the skin with 2-0 Prolene and an antibiotic disc was placed at the exit site. The catheter ports were packed with Heparin (1000 placement units/ml) and sterile caps were placed. An antiseptic dressing was applied. The patient was discharged to the recovery area in stable condition. Next, preliminary sonography confirmed a patent right internal jugular vein. The right lower neck and upper chest were prepped and draped in the usual sterile fashion. 1% Lidocaine with epinephrine was used to anesthetize the subcutaneous tissues overlying the right jugular vein. Under ultrasound guidance, the right internal jugular vein was cannulated with a 21 gauge micropuncture needle.. Real-time ultrasound was used to visualize the needle entry into the vessel and a permane nt recording was made. A guidewire was advanced into the inferior vena cava under fluoroscopic guidance. The needle was exchanged for a peel-away sheath. The catheter was deployed through the peel-away sheath and the catheter tip was positioned in the upper right atrium under fluoroscopic visualization. The catheter was tunneled subcutaneously to a subclavicular exit site. The catheter hubs were secured to the catheter with the locking device. Satisfactory flow through the system was confirmed with saline flush. The catheter was secured to the skin with 2-0 Prolene. The c atheter ports were packed with Heparin (1000 placement units/ml) and sterile caps were placed. An antiseptic dressing was applied. The patient was discharged to the recovery area in stable condition. FINDINGS: The right internal jugular vein is patent by compression. Image documentation is maintained in the permanent medical record. A 20 cm tunneled catheter was placed. The tip of the catheter was positioned in the cavoatrial junction using fluoroscopic guidance. The 19 cm tunneled dialysis catheter was exchanged successfully with tip in the right atrium. IMPRESSION: 1. Right internal jugular vein tunneled catheter (Proline catheter) was placed without complication. 2. Right internal jugular vein tunneled dialysis catheter exchanged without complication Dr. Riaz Galvan MD was present for the procedure. Abscess or Abscess or EXAM: VIR percutaneous abscess drainage 03/24 - [facility] cyst cyst /2018 - Medical drain/aspir drain/aspira DATE: 03/24/2018 4:36 PM T Center ate VR te VR PROCEDURE(S) PERFORMED: Ultrasound-guided placement of percutaneous drainage catheter within abdominal wall abscess Read by: Mukul Hays MD Dictated Date/time: 04/06/18 08:57 INDICATION: 62 years old Female with abdominal wall abscess. Electronically Signed by: Mukul Hays MD 04/06/18 09 :02 FINAL REPORT PRE-PROCEDURE DIAGNOSIS: Abdominal wall abscess POST-PROCEDURE DIAGNOSIS: Same FACULTY: Mukul Hays MD RESIDENT/FELLOW/DIRECTOR TRANSLATION: None SUPERVISION: Not applicable ANESTHESIA/SEDATION: Moderate PHYSICIAN SUPERVISED ANESTHESIA TIME: 30 min SPECIMEN: Fluid submitted to lab for analysis DRAINS: 12 Brazilian drain ESTIMATED BLOOD LOSS: Minimal COMPLICATIONS: None FINDINGS: Abdominal wall abscess. PROCEDURE: The risks, benefits, and alternatives of the procedure were discussed and the patient's questions and concerns were addressed. Written consent was then obtained. Patient was placed in supine position. Targeted ultrasound was performed, the approach was chosen, and the overlying skin marked. The patient was then prepped and draped in usual sterile fashion. A formal time-out procedure was completed. Local anesthesia was administered. Utilizing continuous ultrasound guidance an 18G needle was advanced into the fluid collection with spontaneous return of fluid. Through this access a guide wire was ad vanced, the needle removed, and the tract serially dilated. A 12F drainage catheter was introduced into the collection, the guide wire removed, and the catheter secured. Positioning was confirmed by US imaging. A total of 100 cc of fluid was removed, a sample of which was submitted for laboratory analysis. Hemostasis was achieved and the patient tolerated the procedure well without immediate complication or complaint. Written and verbal post-procedure instructions were given. The patient left the department in stable condition. IMPRESSION: Ultrasound-guided placement of percutaneous drainage catheter with the abdominal wall abscess. Dr. Mukul Hays MD was present for the procedure. Chest 1view Chest 1view EXAM: XR CHEST 1 VIEW 03/22 - [facility] DX DX /2017 - Medical Center DATE: 03/22/2018 Read by: Katya Clark MD Dictated Date/time: 03/22/18 19:29 Electronically Signed by: Katya Clark MD 03/22/18 19:30 FINAL REPORT INDICATION: - none . Comparison is made with yesterday FINDINGS: Cardiomediastinal silhouette and right jugular central line are unchanged. Costophrenic sulci are sharp. The lungs are clear IMPRESSION: No significant interval change when compared to prior radiograph. Torso-Outsi Torso-Outsid EXAM: CT ABDOMEN PELVIS WITH CONTRAST 03/22 - [facility] de Consult e Consult CT /2017 - Medical CT This report was dictated by a Coat Operator/Fellow. I have personally reviewed the images as Center well as the Resident's interpretation and agree with the findings. DATE: 03/21/2018 at 2144 hours Read by: Matthew Reid MD Resident: Matthew Reid MD Dictated Date/time: 03/22/18 18:18 Electronically Signed by: Benito Nielson MD 03/23/18 10:15 FINAL REPORT INDICATION: 62-year-old female with vomiting. Portal venous gas consistent with bowel ischemia. Patient completed dialysis and was told to go to the emergency department due to temperature, cough, chills and vomiting. ADDITIONAL INFORMATION: 2nd interpretation for vague presentation with fever, cough, congestion, portal venous gas and possible ischemic colitis. Patient also has type 2 diabetes, gout, hypertension, hy pothyroid, peripheral neuropathy and renal disease, colovesical fistula repair. COMPARISON: CT of 06/15/2015 at 1651 hours TECHNIQUE: Exam performed at [facility]. Volumetric CT of the abdomen and pelvis is acquired following the intravenous administration of contrast. Axial, coronal and sagittal images are provided. IV contrast: Unknown. Enteric contrast: None. DLP: 1369.1 mGy-cm FINDINGS: Lines, tubes and hardware: * Lumbosacral fixation hardware. * Cholecystectomy clips. Lower thorax: * Minimal bibasilar scarring. * Mitral valve calcification. Liver: * No hepatic lesions. * Peripheral branching gas is in keeping with portal venous air. Biliary tree: Mild dilation as expected postcholecystectomy. Common duct is 1.0 cm. Gallbladder: Surgically absent. Pancreas: Normal. Spleen: * Subcentimeter splenic hypodensity is unchanged since 2015 (501/15). * Otherwise clear. Adrenals: * Mild left adrenal thickening without focal lesion. * Right adrenal is unremarkable. Kidneys and ureters: * Mildly atrophic. * Subcentimeter hypodensities are too small to accurately characterize, but likely represent cysts. Bladder: Normal. Reproductive organs: Uterus and adnexa are unremarkable. Gastrointestinal tract: Stomach: Normal. Small bowel: * Small bowel has normal caliber intra-abdominal free. * Some bowel loops are immediately adjacent to abdominal wall multiloculated fluid collection, likely representing abscess (described below). Dilated loops of small bowel within the hernia are thought a less likely consideration. Colon: * Diverticulosis coli is again identified. * Transverse colon is tortuous and demonstrates a segment of thickening and pericolonic stranding, suggestive of inflammation as may be seen with diverticulitis. This is immediately adjacent to abdomin al wall fluid collection (versus herniated small bowel). Tiny foci of gas in the pericolonic region (501/33, 34) may relate to gas within diverticula, microperforation, or mesenteric gas. Mesenteric gas is seen elsewhere as well ( 501/30) * Narrowing just distal to the hepatic flexure likely relates to a fold or focal decompression, but confirmation with colonoscopy is recommended once inflammation subsides. * Moderate stool burden. Appendix: Normal. Peritoneum, mesentery and retroperitoneum: No free air, ascites or loculated fluid. Lymph nodes: Normal. Vasculature: Aorta and branches: Vascular calcifications. IVC and veins: Normal. Portal vasculature: Normal. Bones: * Age-related degenerative changes. * Fixation at L4, L5 and S1. * Laminectomies at L4 and L5. Soft tissues: * Anterior wall multiloculated air and fluid collection measuring 10.0 x 4.3 cm is most consistent with an abscess. Immediately adjacent loops of small and large bowel are noted at this level, includin g inflamed transverse colon. Peridiverticular abscess involving the abdominal wall or direct fistula communication may be considered. The previously suggested possibility of herniated loops of bowel is thought to be a less likely consideration. IMPRESSION: 1. Diverticulosis and transverse colon wall thickening with pericolonic stranding in keeping with diverticulitis. Findings are less likely due to ischemia in the absence of inflammation. 2. Portal venous and mesenteric gas likely associated with area of diverticulitis, perhaps from bowel necrosis or gas dissection through bowel wall. 3. Abdominal wall abscess with or without fistulous communication to immediately adjacent small bowel or inflamed colon. Dilated herniated loops of small bowel are thought to be a less likely consideration. 4. 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 5. Unchanged nonspecific splenic hypodensity. 6. Left adrenal thickening without discrete nodule. Torso-Outsi Torso-Outsid EXAM: CT ABDOMEN PELVIS WITH CONTRAST 03/22 - [facility] de Consult e Consult CT - Medical CT This report was dictated by a Coat Operator/Fellow. I have personally reviewed the images as Center well as the Resident's interpretation and agree with the findings. DATE: 03/21/2018 at 2144 hours Read by: Matthew Reid MD Resident: Matthew Reid MD Dictated Date/time: 03/22/18 18:18 Electronically Signed by: Benito Nielson MD 03/23/18 10:15 FINAL REPORT INDICATION: 62-year-old female with vomiting. Portal venous gas consistent with bowel ischemia. Patient completed dialysis and was told to go to the emergency department due to temperature, cough, chills and vomiting. ADDITIONAL INFORMATION: 2nd interpretation for vague presentation with fever, cough, congestion, portal venous gas and possible ischemic colitis. Patient also has type 2 diabetes, gout, hypertension, hy pothyroid, peripheral neuropathy and renal disease, colovesical fistula repair. COMPARISON: CT of 06/15/2015 at 1651 hours TECHNIQUE: Exam performed at [facility]. Volumetric CT of the abdomen and pelvis is acquired following the intravenous administration of contrast. Axial, coronal and sagittal images are provided. IV contrast: Unknown. Enteric contrast: None. DLP: 1369.1 mGy-cm FINDINGS: Lines, tubes and hardware: * Lumbosacral fixation hardware. * Cholecystectomy clips. Lower thorax: * Minimal bibasilar scarring. * Mitral valve calcification. Liver: * No hepatic lesions. * Peripheral branching gas is in keeping with portal venous air. Biliary tree: Mild dilation as expected postcholecystectomy. Common duct is 1.0 cm. Gallbladder: Surgically absent. Pancreas: Normal. Spleen: * Subcentimeter splenic hypodensity is unchanged since 2015 (501/15). * Otherwise clear. Adrenals: * Mild left adrenal thickening without focal lesion. * Right adrenal is unremarkable. Kidneys and ureters: * Mildly atrophic. * Subcentimeter hypodensities are too small to accurately characterize, but likely represent cysts. Bladder: Normal. Reproductive organs: Uterus and adnexa are unremarkable. Gastrointestinal tract: Stomach: Normal. Small bowel: * Small bowel has normal caliber intra-abdominal free. * Some bowel loops are immediately adjacent to abdominal wall multiloculated fluid collection, likely representing abscess (described below). Dilated loops of small bowel within the hernia are thought a less likely consideration. Colon: * Diverticulosis coli is again identified. * Transverse colon is tortuous and demonstrates a segment of thickening and pericolonic stranding, suggestive of inflammation as may be seen with diverticulitis. This is immediately adjacent to abdomin al wall fluid collection (versus herniated small bowel). Tiny foci of gas in the pericolonic region (501/33, 34) may relate to gas within diverticula, microperforation, or mesenteric gas. Mesenteric gas is seen elsewhere as well ( 501/30) * Narrowing just distal to the hepatic flexure likely relates to a fold or focal decompression, but confirmation with colonoscopy is recommended once inflammation subsides. * Moderate stool burden. Appendix: Normal. Peritoneum, mesentery and retroperitoneum: No free air, ascites or loculated fluid. Lymph nodes: Normal. Vasculature: Aorta and branches: Vascular calcifications. IVC and veins: Normal. Portal vasculature: Normal. Bones: * Age-related degenerative changes. * Fixation at L4, L5 and S1. * Laminectomies at L4 and L5. Soft tissues: * Anterior wall multiloculated air and fluid collection measuring 10.0 x 4.3 cm is most consistent with an abscess. Immediately adjacent loops of small and large bowel are noted at this level, includin g inflamed transverse colon. Peridiverticular abscess involving the abdominal wall or direct fistula communication may be considered. The previously suggested possibility of herniated loops of bowel is thought to be a less likely consideration. IMPRESSION: 1. Diverticulosis and transverse colon wall thickening with pericolonic stranding in keeping with diverticulitis. Findings are less likely due to ischemia in the absence of inflammation. 2. Portal venous and mesenteric gas likely associated with area of diverticulitis, perhaps from bowel necrosis or gas dissection through bowel wall. 3. Abdominal wall abscess with or without fistulous communication to immediately adjacent small bowel or inflamed colon. Dilated herniated loops of small bowel are thought to be a less likely consideration. 4. 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 5. Unchanged nonspecific splenic hypodensity. 6. Left adrenal thickening without discrete nodule. BLOOD BANK ABO/Rh A POS 01/13 [facility] RESULTS /2017 [facility] BLOOD BANK Antibody Negative 01/13 [facility] RESULTS [facility] (01/13/18 10:00 AM) [place] CHEM PANEL eGFR 14 01/13 Result Comment: The eGFR is calculated using the CKD-EPI formula. In most young, healthy individuals the eGFR will be >90 mL/ min/1.73m2. The eGFR declines with age. An eGFR of 60-89 may be normal in [facility] mL/min/1.7 some populations, particularly the elderly, for whom the CKD-EPI formula has not been extensively validated. Use of the eGFR is not recommended in the following populations: [address] Individuals with unstable creatinine concentrations, including patients and those with serious co-morbid conditions. Patients with extremes in muscle mass or diet. The data above are obtained from the National Kidney Disease Education Program (NKDEP) which additionally recommends that when the eGFR is used in patients with extremes of body mass index for purposes of drug dosing, the eGFR should be multiplied by the estimated BMI. CHEM PANEL Calcium Lvl 11.1 mg/dL 8.5 - 10.5 01/13 [facility] CHEM PANEL Potassium 3.6 meq/L 3.5 - 5.1 01/13 [facility] Lvl [facility] CHEM PANEL CO2 25 meq/L 24 - 32 01/13 [facility] CHEM PANEL Sodium Lvl 138 meq/L 135 - 145 01/13 [facility] CHEM PANEL Creatinine 3.35 mg/dL 0.50 - 01/13 [facility] Lvl 1.40 [facility] CHEM PANEL Chloride Lvl 103 meq/L 95 - 109 01/13 [facility] CHEM PANEL BUN 45 mg/dL 7 - 22 01/13 [facility] CHEM PANEL Glucose Lvl 76 mg/dL 70 - 99 01/13 [facility] CHEM PANEL AGAP 13.6 meq/L 10.0 - 01/13 20.0 [facility] HEMATOLOGY MCH 28.7 pg 27.0 - 01/13 31.0 [facility] HEMATOLOGY Hct 31.9 % 36.0 - 01/13 48.0 [facility] HEMATOLOGY MCV 87.1 fL 80.0 - 01/13 98.0 [facility] HEMATOLOGY MCHC 33.0 g/dL 32.0 - 01/13 [facility] 36.0 [facility] HEMATOLOGY RDW 16.4 % 11.5 - 01/13 14.5 [facility] HEMATOLOGY MPV 8.6 fL 7.4 - 10.4 01/13 [facility] HEMATOLOGY Platelet 215 K/CMM 133 - 450 01/13 [facility] HEMATOLOGY Hgb 10.5 g/dL 12.0 - 01/13 16.0 [facility] HEMATOLOGY RBC 3.67 M/CMM 4.20 - 01/13 5.40 [facility] HEMATOLOGY WBC 12.6 K/CMM 3.7 - 10.4 01/13 [facility] HEMATOLOGY Segs 66.1 % 45.0 - 01/13 75.0 [facility] HEMATOLOGY Lymphocytes 21.0 % 20.0 - 01/13 40.0 [facility] HEMATOLOGY Monocytes 9.0 % 2.0 - 12.0 01/13 [facility] HEMATOLOGY Eosinophils 3.3 % 0.0 - 4.0 01/13 [facility] HEMATOLOGY Basophils 0.6 % 0.0 - 1.0 01/13 [facility] HEMATOLOGY Segs-Bands # 8.4 K/CMM 1.5 - 8.1 01/13 [facility]2017 [facility] HEMATOLOGY Eosinophils 0.4 K/CMM 0.0 - 0.5 01/13 [facility] HEMATOLOGY Lymphocytes 2.7 K/CMM 1.0 - 5.5 01/13 [facility] HEMATOLOGY Monocytes # 1.1 K/CMM 0.0 - 0.8 01/13 [facility] HEMATOLOGY Basophils # 0.1 K/CMM 0.0 - 0.2 01/13 [facility] HEMATOLOGY Lymphocytes 16.9 % 20.0 - 11/02 40.0 /2018 [facility] HEMATOLOGY Lymphocytes 2.3 K/CMM 1.0 - 5.5 11/02 [facility] HEMATOLOGY Monocytes # 0.7 K/CMM 0.0 - 0.8 11/[address] HEMATOLOGY Basophils 0.6 % 0.0 - 1.0 11/[address] [place] [address] HEMATOLOGY Segs-Bands # 9.9 K/CMM 1.5 - 8.1 11/02 [facility] HEMATOLOGY Monocytes 5.6 % 2.0 - 12.0 11/02 [facility] HEMATOLOGY Eosinophils 2.8 % 0.0 - 4.0 11/02 [facility] HEMATOLOGY Segs 74.1 % 45.0 - 11/02 [facility] 75.0 [facility] HEMATOLOGY Eosinophils 0.4 K/CMM 0.0 - 0.5 11/02 [facility] HEMATOLOGY Basophils # 0.1 K/CMM 0.0 - 0.2 11/02 [facility] HEMATOLOGY Platelet 251 K/CMM 133 - 450 11/02 [facility] HEMATOLOGY RDW 16.4 % 11.5 - 11/02 14.5 [facility] HEMATOLOGY Hct 29.5 % 36.0 - 11/02 [facility] 48.0 [facility] HEMATOLOGY Hgb 9.7 g/dL 12.0 - 11/02 [facility] 16.0 [facility] HEMATOLOGY RBC 3.42 M/CMM 4.20 - 11/02 5.40 2018 [facility] HEMATOLOGY WBC 13.4 K/CMM 3.7 - 10.4 11/02 [facility] HEMATOLOGY MCHC 32.8 g/dL 32.0 - 11/02 [facility] 36.0 2018 [facility] HEMATOLOGY MCH 28.3 pg 27.0 - 11/02 31.0 2018 [facility] HEMATOLOGY MPV 8.6 fL 7.4 - 10.4 11/02 MH [facility] HEMATOLOGY MCV 86.3 fL 80.0 - 11/02 [facility] 98.0 [facility] Chest 1view Chest 1view EXAM: XR CHEST 1 VIEW 11/02 - [facility] DX DX - [facility] DATE: 11/02/2017 10:52 AM [employer] Read by: Carlos Cherry MD Dictated Date/time: 11/02/17 11:12 Electronically Signed by: Carlos Cherry MD 11/02/17 11:13 FINAL REPORT INDICATION: - line placement COMPARISON: 01/24/2016 TECHNIQUE: AP chest FINDINGS: Lines, tubes and hardware: A right IJ central line projects over the distal SVC. Lungs and pleura: Mild right basilar atelectasis is seen. Lungs are otherwise clear. The costophrenic sulci are sharp. No pneumothorax is identified. Pulmonary vascularity is normal. Heart and mediastinum: The heart size is normal for technique. The mediastinal contours are normal. Bones: No acute bony abnormality is identified. IMPRESSION: 1. Right IJ central line terminating over the distal SVC. 2. Mild right basilar atelectasis. CVC insert CVC insert EXAM: VIR tunneled dialysis catheter placement [facility] tunnel tunnel - [facility] w/-w/o w/-w/o DATE: 10/29/2017 3:40 PM [employer] This report was dictated by a Coat Operator/Fellow. I have personally reviewed the images as Center port/pump port/pump well as the Resident's interpretation and agree with the findings. age 5+ yrs age 5+ yrs Read by: Sherif Sage DO Resident: Sherif Sage DO VR VR Dictated Date/time: 10/29/17 17:48 PROCEDURE(S) PERFORMED: Electronically Signed by: Michael Randhawa 11/02/17 20:35 FINAL REPORT Successful ultrasound and fluoroscopic guided placement of a tunneled dialysis catheter. INDICATION: 62 years old Female with end stage renal disease. FACULTY: Michael Randhawa MD RESIDENT/FELLOW/DIRECTOR TRANSLATION: Sherif Sage DO SUPERVISION: Level 1 Direct supervision: The supervising provider is physically present with the patient during the procedure. ANESTHESIA/SEDATION: Moderate sedation PHYSICIAN SUPERVISED ANESTHESIA TIME: 30 min SPECIMEN: None DRAINS: None ESTIMATED BLOOD LOSS: Less than 10 cc COMPLICATIONS: None immediate FLUOROSCOPY TIME: 0.5 min RADIATION DOSE: 3.7 mGy PROCEDURE: After the risks, benefits, and alternatives of the procedure were explained to the patient, verbal and written consent were obtained and a copy was placed in the chart. A time-out was performed. IV Vers ed and Fentanyl were titrated for moderate sedation by a trained observer. Preliminary sonography confirmed a patent right internal jugular vein. The right lower neck and upper chest were prepped and dr chantaleed in the usual sterile fashion. 1% Lidocaine with epinephrine was used to anesthetize the subcutaneous tissues overlying the right jugular vein. Under ultrasound guidance, the right internal Jugular vein was cannulated with a 21 gauge micropuncture needle.. Real-time ultrasound was used to visualize the needle entry into the vessel and a permane nt recording was made. A micropuncture set was then used to upsize the access site to accept a 0.035 Bentson wire which was advanced under fluoroscopic guidance to the inferior vena cava. 1% lidocaine w as then used to anesthetize the right anterior chest wall. A small skin brooklynn was made and the catheter was tunneled subcutaneously from the right chest wall to the venotomy site in the neck. The tract w as serially dilated to accept a peel-away sheath. The catheter was deployed through the peel-away sheath and the catheter tip was positioned in the right atrium under fluoroscopic visualization. Satisfactory flow through the system was confirmed with saline flush. The venotomy site was closed with absorbable suture. The catheter was secured to the skin with 2-0 Prolene. The catheter ports wer e packed with Heparin (1000 units/ml) and sterile caps were placed. An antiseptic dressing was applied. The patient was discharged to the recovery area in stable condition. FINDINGS: The right internal jugular vein is patent by compression. Image documentation is maintained in the permanent medical record. A 16-Brazilian, 19 cm tip to cuff tunneled hemodialysis catheter was placed. The tip of the catheter was positioned in the upper right atrium using fluoroscopic guidance. IMPRESSION: 1. Successful ultrasound and fluoroscopic guided placement of a Right internal jugular vein tunneled dialysis catheter without complication. FOLLOW-UP/PLAN: The catheter is ready for immediate use. Dr. Michael Randhawa MD was present for the procedure. CHEM PANEL eGFR 06/08 Result Comment: The eGFR is calculated using the CKD-EPI formula. In most young, healthy individuals the eGFR will be >90 mL/ min/1.73m2. The eGFR declines with age. An eGFR of 60-89 may be normal in mL/min/1.7 some populations, particularly the elderly, for whom the CKD-EPI formula has not been extensively validated. Use of the eGFR is not recommended in the following populations: [place] [address] Individuals with unstable creatinine concentrations, including patients and those with serious co-morbid conditions. Patients with extremes in muscle mass or diet. The data above are obtained from the National Kidney Disease Education Program (NKDEP) which additionally recommends that when the eGFR is used in patients with extremes of body mass index for purposes of drug dosing, the eGFR should be multiplied by the estimated BMI. CHEM PANEL BUN 74 mg/dL 7 - 22 06/08 [place] CHEM PANEL Glucose Lvl 214 mg/dL 70 - 99 06/08 [place] CHEM PANEL Sodium Lvl 134 meq/L 135 - 145 06/08 [place] CHEM PANEL Creatinine 3.55 mg/dL 0.50 - 09 MH Lvl 1.40 [place] CHEM PANEL ASPARTATE 9 unit/L 0 - 37 06/08 TRANSAMINASE [place] CHEM PANEL ALANINE 14 unit/L 0 - 65 06/08 AMINOTRANSFE [place]ASE CHEM PANEL Albumin Lvl 3.3 g/dL 3.5 - 5.0 06/08 [place] CHEM PANEL Bili Total 0.5 mg/dL 0.2 - 1.3 06/08 [place] CHEM PANEL Alk Phos 135 unit/L 39 - 136 06/08 [place] CHEM PANEL CO2 24 meq/L 24 - 32 06/08 [place] CHEM PANEL Chloride Lvl 100 meq/L 95 - 109 06/08 [place] CHEM PANEL Potassium 3.6 meq/L 3.5 - 5.1 06/08 Lvl [place] CHEM PANEL Total 8.2 g/dL 6.4 - 8.4 06/08 Protein [place] CHEM PANEL Calcium Lvl 10.7 mg/dL 8.5 - 10.5 06/08 [place] CHEM PANEL AGAP 13.6 meq/L 10.0 - 06/08 MH 20.0 [place] CHEM PANEL Globulin 4.9 g/dL 2.7 - 4.2 06/08 [place] CHEM PANEL B/C Ratio 21 6 - 25 06/08 [place] CHEM PANEL A/G Ratio 0.7 0.7 - 1.6 06/08 [place] CHEM PANEL Lactic Acid 1.0 mMol/L 0.5 - 2.2 06/08 Lvl /2016 [place] HEMATOLOGY MCH 26.9 pg 27.0 - 06/08 MH 31.0 [place] HEMATOLOGY WBC X 10x3 18.4 K/CMM 3.7 - 10.4 06/08 [place] HEMATOLOGY MCHC 33.3 g/dL 32.0 - 06/08 MH 36.0 [place] HEMATOLOGY MCV 80.8 fL 80.0 - 06/08 MH 98.0 [place] HEMATOLOGY RBC X 10x6 3.87 M/CMM 4.20 - 06/08 MH 5.40 [place] HEMATOLOGY Hgb 10.4 g/dL 12.0 - 06/08 MH 16.0 [place] HEMATOLOGY MPV 8.7 fL 7.4 - 10.4 06/08 [place] HEMATOLOGY RDW 14.0 % 11.5 - 06/08 MH 14. [place] HEMATOLOGY Platelet 217 K/CMM 133 - 450 06/08 [place] HEMATOLOGY Hct 31.3 % 36.0 - 06/08 MH 48.0 [place] HEMATOLOGY Basophils # 0.1 K/CMM 0.0 - 0.2 06/08 [place] HEMATOLOGY Eosinophils 0.1 K/CMM 0.0 - 0.5 06/08 MH # /2016 [place] HEMATOLOGY Segs-Bands # 0.2 K/CMM 1.5 - 8.1 06/08 [place] HEMATOLOGY Monocytes # 1.3 K/CMM 0.0 - 0.8 06/08 [place] HEMATOLOGY Basophils 0.2 % 0.0 - 1.0 06/08 [place] HEMATOLOGY Lymphocytes 1.8 K/CMM 1.0 - 5.5 06/08 MH # /2016 [place] HEMATOLOGY Segs 84.8 % 45.0 - 06/08 MH 75.0 [place] HEMATOLOGY Monocytes 7.5 % 2.0 - 12.0 06/08 [place] HEMATOLOGY Lymphocytes 6.5 % 20.0 - 06/08 MH 40.0 [place] HEMATOLOGY Eosinophils 1.0 % 0.0 - 4.0 06/08 [place] Hand 2 Hand 2 views EXAM: XR LEFT HAND, 2 VIEWS 06/08 [facility] [place] DATE: 06/07/2017 11:19 PM CDT Read by: Garrte Garcia MD Dictated Date/time: 06/08/17 01:05 Electronically Signed by: Garret Garcia MD 06/08/17 01:08 FINAL REPORT INDICATION: Fever. And swelling. COMPARISON: None Available. TECHNIQUE: Frontal and lateral radiographs of the left hand were obtained. FINDINGS: Diffuse soft tissue swelling of the left hand is identified. The bones are diffusely osteopenic. Degenerative changes of the interphalangeal joints are identified. No acute fracture or malalignment is present. IMPRESSION: Marked soft tissue swelling of the left hand without acute bony abnormality. SL: [id number] CARDIAC BNP 70 pg/mL <=100 07/04 ENZYMES pg/mL /2015 [place] CHEM PANEL eGFR 11 07/04 Result Comment: The eGFR is calculated using the CKD-EPI formula. In most young, healthy individuals the eGFR will be >90 mL/ min/1.73m2. The eGFR declines with age. An eGFR of 60-89 may be normal in mL/min/1. some populations, particularly the elderly, for whom the CKD-EPI formula has not been extensively validated. Use of the eGFR is not recommended in the following populations: [address] Individuals with unstable creatinine concentrations, including patients and those with serious co-morbid conditions. Patients with extremes in muscle mass or diet. The data above are obtained from the National Kidney Disease Education Program (NKDEP) which additionally recommends that when the eGFR is used in patients with extremes of body mass index for purposes of drug dosing, the eGFR should be multiplied by the estimated BMI. HEMATOLOGY Monocytes # 0.1 K/CMM 0.0 - 0.8 07/04 [place] [facility] HEMATOLOGY Monocytes 1.2 % 2.0 - 12.0 07/04 [place] [facility] HEMATOLOGY Eosinophils 0.1 % 0.0 - 4.0 07/04 [place] [facility] HEMATOLOGY Segs-Bands # 9.6 K/CMM 1.5 - 8.1 07/04 MH /2015 [place] HEMATOLOGY Lymphocytes 9.2 % 20.0 - 07/04 MH 40.0 /2015 [place] HEMATOLOGY Basophils 0.2 % 0.0 - 1.0 07/04 MH /2015 [place] HEMATOLOGY Lymphocytes 1.0 K/CMM 1.0 - 5.5 07/04 MH # /2016 [place] HEMATOLOGY Segs 89.3 % 45.0 - 07/04 MH 75.0 /2015 [place] [facility] HEMATOLOGY MCV 79.3 fL 80.0 - 07/04 MH 98.0 [place] HEMATOLOGY MCHC 33.4 g/dL 32.0 - 07/04 MH 36.0 /2015 [place] [facility] HEMATOLOGY Platelet 294 K/CMM 133 - 450 07/04 MH /2015 [place] [facility] HEMATOLOGY MCH 26.5 pg 27.0 - 07/04 MH 31.0 [place] [facility] HEMATOLOGY Hgb 10.5 g/dL 12.0 - 07/04 MH 16.0 [place] HEMATOLOGY Hct 31.5 % 36.0 - 07/04 MH 48.0 [place] [facility] HEMATOLOGY RDW 14.9 % 11.5 - 07/04 MH 14.5 [place] HEMATOLOGY RBC X 10x6 3.97 M/CMM 4.20 - 07/04 MH 5.40 /2015 [facility] HEMATOLOGY WBC X 10x3 10.8 K/CMM 3.7 - 10.4 07/04 /2015 [facility] HEMATOLOGY MPV 9.4 fL 7.4 - 10.4 07/04 [facility] CHEM PANEL Calcium Lvl 10.5 mg/dL 8.5 - 10.5 07/04 [facility] CHEM PANEL AGAP 16.0 meq/L 10.0 - 07/04 MH 20.0 [place] [facility] CHEM PANEL Chloride Lvl 101 meq/L 95 - 109 07/04 [facility] CHEM PANEL CO2 23 meq/L 24 - 32 07/04 [facility] CHEM PANEL Glucose Lvl 279 mg/dL 70 - 99 07/04 [facility] CHEM PANEL Sodium Lvl 136 meq/L 135 - 145 07/04 [facility] CHEM PANEL Creatinine 4.19 mg/dL 0.50 - 07/04 MH Lvl 1.40 [place] CHEM PANEL Potassium 4.0 meq/L 3.5 - 5.1 07/04 Lvl [place] [facility] CHEM PANEL BUN 87 mg/dL 7 - 22 07/04 [place] [facility] CHEM PANEL Lactic Acid 0.7 mMol/L 0.5 - 2.2 07/04 Lvl [place] [facility] CHEM PANEL eGFR 10 07/04 Result Comment: The eGFR is calculated using the CKD-EPI formula. In most young, healthy individuals the eGFR will be >90 mL/ min/1.73m2. The eGFR declines with age. An eGFR of 60-89 may be normal in mL/min/1.7 some populations, particularly the elderly, for whom the CKD-EPI formula has not been extensively validated. Use of the eGFR is not recommended in the following populations: [place] [address] Individuals with unstable creatinine concentrations, including patients and those with serious co-morbid conditions. Patients with extremes in muscle mass or diet. The data above are obtained from the National Kidney Disease Education Program (NKDEP) which additionally recommends that when the eGFR is used in patients with extremes of body mass index for purposes of drug dosing, the eGFR should be multiplied by the estimated BMI. CHEM PANEL ASPARTATE 8 unit/L 0 - 37 07/04 TRANSAMINASE [place] [facility] CHEM PANEL Total 8.0 g/dL 6.4 - 8.4 07/04 Protein [facility] CHEM PANEL Chloride Lvl 101 meq/L 95 - 109 07/04 [facility] CHEM PANEL Calcium Lvl 10.8 mg/dL 8.5 - 10.5 07/04 [facility] CHEM PANEL Bili Total 0.3 mg/dL 0.2 - 1.3 07/04 [facility] CHEM PANEL CO2 25 meq/L 24 - 32 07/04 [facility] CHEM PANEL Alk Phos 146 unit/L 39 - 136 07/04 [facility] CHEM PANEL BUN 96 mg/dL 7 - 22 07/04 [place] [facility] CHEM PANEL Glucose Lvl 114 mg/dL 70 - 99 07/04 [facility] CHEM PANEL ALANINE 19 unit/L 0 - 65 07/04 AMINOTRANS [facility] [place] CHEM PANEL Creatinine 4.47 mg/dL 0.50 - 07/04 MH Lvl 1.40 [place] CHEM PANEL Potassium 3.9 meq/L 3.5 - 5.1 07/04 MH Lvl /2015 [place] CHEM PANEL Sodium Lvl 137 meq/L 135 - 145 07/04 [facility] CHEM PANEL Albumin Lvl 3.4 g/dL 3.5 - 5.0 07/04 [facility] CHEM PANEL A/G Ratio 0.7 0.7 - 1.6 07/04 [facility] CHEM PANEL AGAP 14.9 meq/L 10.0 - 07/04 MH 20.0 [place] CHEM PANEL Globulin 4.6 g/dL 2.7 - 4.2 07/04 [facility] CHEM PANEL B/C Ratio 21 6 - 25 07/04 [facility] HEMATOLOGY MPV 8.5 fL 7.4 - 10.4 07/04 [facility] HEMATOLOGY Platelet 310 K/CMM 133 - 450 07/04 [facility] HEMATOLOGY RDW 15.0 % 11.5 - 07/04 MH 14. [facility] HEMATOLOGY MCHC 33.6 g/dL 32.0 - 07/04 MH 36.0 [place] HEMATOLOGY MCV 79.2 fL 80.0 - 07/04 MH 98.0 [place] [facility] HEMATOLOGY Hct 31.2 % 36.0 - 07/04 MH 48.0 [place] HEMATOLOGY MCH 26.6 pg 27.0 - 07/04 MH 31.0 [place] [facility] HEMATOLOGY WBC X 10x3 11.6 K/CMM 3.7 - 10.4 07/04 /2015 [facility] HEMATOLOGY Hgb 10.5 g/dL 12.0 - 07/04 MH 16.0 [place] [facility] HEMATOLOGY RBC X 10x6 3.94 M/CMM 4.20 - 07/04 MH 5.40 [facility] HEMATOLOGY Segs 73.5 % 45.0 - 07/04 MH 75.0 [place] HEMATOLOGY Lymphocytes 16.6 % 20.0 - 07/04 MH 40.0 [place] HEMATOLOGY Basophils # 0.1 K/CMM 0.0 - 0.2 07/04 [facility] HEMATOLOGY Monocytes # 0.8 K/CMM 0.0 - 0.8 07/04 [facility] HEMATOLOGY Lymphocytes 1.9 K/CMM 1.0 - 5.5 07/04 MH [place] HEMATOLOGY Eosinophils 0.2 K/CMM 0.0 - 0.5 07/04 # /2015 [facility] HEMATOLOGY Monocytes 7.3 % 2.0 - 12.0 07/04 [facility] HEMATOLOGY Eosinophils 1.9 % 0.0 - 4.0 07/04 [facility] HEMATOLOGY Basophils 0.7 % 0.0 - 1.0 07/04 [facility] HEMATOLOGY Segs-Bands # 8.5 K/CMM 1.5 - 8.1 07/04 [facility] URINE AND UA Leuk Est Small Negative 07/04 [facility] *ABN* (07/03/16 7:29 PM) URINE AND UA Sq Epi Occasional Few /LPF 07/04 STOOL /LPF [place] [facility] URINE AND UA RBC 0-2 /HPF 0 - 2 07/04 [facility] URINE AND UA WBC 3-5 /HPF None Seen 07/04 STOOL /HPF [place] [facility] URINE AND UA Bacteria Occasional None Seen 07/04 STOOL /HPF /HPF [place] [facility] URINE AND UA Blood Trace Negative 07/04 [facility] *ABN* (07/03/16 7:29 PM) URINE AND UA 0.2 EU/dL 0.1 - 1.0 07/04 STOOL Urobilinogen [place] [facility] URINE AND UA Nitrite Negative Negative 07/04 [facility] (07/03/16 7:29 PM) URINE AND UA Color Yellow Yellow 07/04 [facility] *NA* (07/03/16 7:29 PM) URINE AND UA Turbidity Clear Clear 07/04 [facility] (07/03/16 7:29 PM) URINE AND UA Spec Grav <=1.005 <=1.030 07/04 STOOL
*NA*< [facility] br/>(07/03 7:29 PM) URINE AND UA Ketones Negative Negative 07/04 [facility] *NA* (07/03/16 7:29 PM) URINE AND UA Glucose Negative Negative 07/04 STOOL [facility] (07/03/16 7:29 PM) URINE AND UA Protein Negative Negative 07/04 STOOL [facility] (07/03/16 7:29 PM) URINE AND UA pH 7.0 5.0 - 8.0 07/04 STOOL [place] URINE AND UA Bili Negative Negative 07/04 STOOL [facility] *NA* (07/03/16 7:29 PM) Wrist Wrist Study: 3 views of right wrist joint 07/03 [facility] complete DX complete [place] History: Right wrist pain and swelling Read by: Mariposa Alanis MD Dictated Date/time: 07/03/16 19:05 Electronically Signed by: Mariposa Alanis MD 07/03/16 19:07 FINAL REPORT Comments: Decreased bone mineralization. No acute fracture or dislocation. No radiopaque foreign bodies. IMPRESSION: No acute fracture or dislocation. Hand 3 Hand 3 views Study: 3 views of the right 07/03 [facility] views DX [place] History: Right hand pain and swelling. Read by: Mariposa Alanis MD Dictated Date/time: 07/03/16 19:07 Electronically Signed by: Mariposa Alanis MD 07/03/16 19:22 FINAL REPORT Comments: Decreased bone mineralization. No acute fracture or dislocation. No radiopaque foreign bodies. IMPRESSION: No acute fracture or dislocation. Spine Spine lumbar EXAMINATION: Lumbar spine series 02/03 [facility] lumbar series - [facility] series [facility] HISTORY: Lumbar radiculopathy; lumbar spondylosis Read by: Sanket Woodruff MD Dictated Date/time: 02/04/16 15:12 Electronically Signed by: Sanket Woodruff MD 02/04/16 15:13 FINAL REPORT FINDINGS: Frontal, lateral, bilateral oblique, and coned views of the lumbar spine are performed and compared to 10/16/2015. There has been interval instrumented posterior spinal fusion and posterior decompression from L4 through S1 transfixed with paired vertical rods, multiple pedicle screws, and a cross bar at the level of the inferior endplate of L4. There is no listhesis of the lumbar spine. The vertebral body heights are normal without compression fracture. There is unchanged moderate to severe L4-L5 and L5-S1 degener ative disc disease. The remaining intervertebral disc spaces are normal. The sacral ala appear intact. IMPRESSION: 1. Interval instrumented posterior spinal fusion with posterior decompression, L4-S1, with unchanged moderate to severe L4-L5 and L5-S1 degenerative disc disease. CHEM PANEL Procalcitoni 0.18 ng/mL 0.00 - 05 n Lvl 0.10 [facility] CHEM PANEL Magnesium 2.1 mg/dL 1.8 - 2.4 01/26 Lvl [facility] ELECTROLYTE CO2 23 meq/L 24 - 32 01/26 S [facility] ELECTROLYTE Calcium Lvl 10.2 mg/dL 8.5 - 10.5 01/26 S [facility] ELECTROLYTE Potassium 3.4 meq/L 3.5 - 5.1 01/26 S Lvl [facility] ELECTROLYTE Sodium Lvl 140 meq/L 135 - 145 01/26 [facility] ELECTROLYTE Chloride Lvl 105 meq/L 95 - 109 01/26 [facility] ELECTROLYTE BUN 91 mg/dL 7 - 22 01/26 [facility] ELECTROLYTE Glucose Lvl 77 mg/dL 70 - 99 01/26 [facility] ELECTROLYTE Albumin Lvl 2.8 g/dL 3.5 - 5.0 01/26 [facility] ELECTROLYTE Phosphorus 4.5 mg/dL 2.5 - 4.5 01/26 [facility] ELECTROLYTE eGFR 12 01/26 Result Comment: The eGFR is calculated using the CKD-EPI formula. In most young, healthy individuals the eGFR will be >90 mL/ min/1.73m2. The eGFR declines with age. An eGFR of 60-89 may be normal in [facility] - [facility] mL/min/1. some populations, particularly the elderly, for whom the CKD-EPI formula has not been extensively validated. Use of the eGFR is not recommended in the following populations: [address] Individuals with unstable creatinine concentrations, including patients and those with serious co-morbid conditions. Patients with extremes in muscle mass or diet. The data above are obtained from the National Kidney Disease Education Program (NKDEP) which additionally recommends that when the eGFR is used in patients with extremes of body mass index for purposes of drug dosing, the eGFR should be multiplied by the estimated BMI. ELECTROLYTE Creatinine 3.85 mg/dL 0.50 - 05 S Lvl 1.40 [facility] ELECTROLYTE AGAP 15.4 meq/L 10.0 - 01/26 S 20.0 [facility] CHEM PANEL Magnesium 2.0 mg/dL 1.8 - 2.4 01/25 Lvl [facility] ELECTROLYTE Potassium 3.0 meq/L 3.5 - 5.1 01/25 Result S Lv Comment: [facility] Result(s) called to LA SILVEIRA at 01/26/2016 05:54 by CHEN. Read back OK. ELECTROLYTE Chloride Lvl 104 meq/L 95 - 109 / S /2015 [facility] ELECTROLYTE CO2 23 meq/L 24 - 32 01/25 S /2015 [facility] ELECTROLYTE AGAP 16.0 meq/L 10.0 - 01/25 S 20.0 [facility] ELECTROLYTE Sodium Lvl 140 meq/L 135 - 145 / S [facility] ELECTROLYTE BUN 90 mg/dL 7 - 22 01/25 S /2015 [facility] ELECTROLYTE Calcium Lvl 10.6 mg/dL 8.5 - 10.5 01/25 S [facility] ELECTROLYTE Glucose Lvl 102 mg/dL 70 - 99 01/25 S [facility] ELECTROLYTE eGFR 12 01/25 Result Comment: The eGFR is calculated using the CKD-EPI formula. In most young, healthy individuals the eGFR will be >90 mL/ min/1.73m2. The eGFR declines with age. An eGFR of 60-89 may be normal in [facility] mL/min/1.7 some populations, particularly the elderly, for whom the CKD-EPI formula has not been extensively validated. Use of the eGFR is not recommended in the following populations: [address] Individuals with unstable creatinine concentrations, including patients and those with serious co-morbid conditions. Patients with extremes in muscle mass or diet. The data above are obtained from the National Kidney Disease Education Program (NKDEP) which additionally recommends that when the eGFR is used in patients with extremes of body mass index for purposes of drug dosing, the eGFR should be multiplied by the estimated BMI. ELECTROLYTE Creatinine 3.79 mg/dL 0.50 - 01/25 S Lvl 1.40 /2015 [facility] HEMATOLOGY Platelet 215 K/CMM 133 - 450 01/25 [facility] HEMATOLOGY MPV 8.8 fL 7.4 - 10.4 01/25 [facility] HEMATOLOGY WBC 10.1 K/CMM 3.7 - 10.4 01/25 [facility] HEMATOLOGY RDW 16.0 % 11.5 - 01/25 MH 14.5 /2015 [facility] HEMATOLOGY MCHC 33.3 g/dL 32.0 - 01/25 MH 36.0 /2015 [facility] HEMATOLOGY MCH 28.1 pg 27.0 - 01/25 MH 31.0 [facility] HEMATOLOGY MCV 84.3 fL 80.0 - 01/25 MH 98.0 [facility] HEMATOLOGY Hgb 8.3 g/dL 12.0 - 01/25 MH 16.0 [facility] HEMATOLOGY Hct 24.8 % 36.0 - 01/25 MH 48.0 /2015 [facility] HEMATOLOGY RBC 2.95 M/CMM 4.20 - 01/25 MH 5.40 /2015 [facility] CHEM PANEL Procalcitoni 0.25 ng/mL 0.00 - 01/24 n Lvl 0.10 [facility] ELECTROLYTE AGAP 17.7 meq/L 10.0 - 01/24 S 20.0 [facility] ELECTROLYTE Calcium Lvl 10.6 mg/dL 8.5 - 10.5 01/24 S /2015 [facility] ELECTROLYTE CO2 21 meq/L 24 - 32 01/24 S /2015 [facility] ELECTROLYTE Potassium 3.7 meq/L 3.5 - 5.1 01/24 S Lvl /2015 [facility] ELECTROLYTE Chloride Lvl 103 meq/L 95 - 109 01/24 S [facility] ELECTROLYTE Sodium Lvl 138 meq/L 135 - 145 01/24 S /2015 [facility] ELECTROLYTE Glucose Lvl 189 mg/dL 70 - 99 01/24 S /2015 [facility] ELECTROLYTE eGFR 13 01/24 Result Comment: The eGFR is calculated using the CKD-EPI formula. In most young, healthy individuals the eGFR will be >90 mL/ min/1.73m2. The eGFR declines with age. An eGFR of 60-89 may be normal in S mL/min/1.7 some populations, particularly the elderly, for whom the CKD-EPI formula has not been extensively validated. Use of the eGFR is not recommended in the following populations: [address] Individuals with unstable creatinine concentrations, including patients and those with serious co-morbid conditions. Patients with extremes in muscle mass or diet. The data above are obtained from the National Kidney Disease Education Program (NKDEP) which additionally recommends that when the eGFR is used in patients with extremes of body mass index for purposes of drug dosing, the eGFR should be multiplied by the estimated BMI. ELECTROLYTE Creatinine 3.54 mg/dL 0.50 - 05 S Lvl 1.40 /2015 [facility] ELECTROLYTE BUN 75 mg/dL 7 - 01/24 S /2015 [facility] ENDOCRINOLO Cortisol null 01/24 [facility] HEMATOLOGY Basophils # 0.0 K/CMM 0.0 - 0.2 05 [facility] HEMATOLOGY Monocytes # 0.2 K/CMM 0.0 - 0.8 01/24 [facility] HEMATOLOGY Eosinophils 0.0 K/CMM 0.0 - 0.5 05/ MH # [facility] HEMATOLOGY Segs-Bands # 10.3 K/CMM 1.5 - 8.1 01/24 [facility] HEMATOLOGY Lymphocytes 0.5 K/CMM 1.0 - 5.5 01/24 [facility] HEMATOLOGY Eosinophils 0.2 % 0.0 - 4.0 01/24 [facility] HEMATOLOGY Basophils 0.2 % 0.0 - 1.0 01/24 [facility] HEMATOLOGY Monocytes 2.0 % 2.0 - 12.0 01/24 [facility] HEMATOLOGY Segs 93.0 % 45.0 - 01/24 MH 75.0 [facility] HEMATOLOGY Lymphocytes 4.6 % 20.0 - 01/24 40.0 [facility] HEMATOLOGY RBC Morph Normal 01/24 [facility] (01/25/16 6:30 AM) Count includes the [facility] Plt Morph Normal 01/24 [facility] (01/25/16 6:30 AM) Count includes the [facility] Platelet 183 K/CMM 133 - 450 01/24 [facility] HEMATOLOGY RDW 16.0 % 11.5 - 01/24 14.5 [facility] HEMATOLOGY MCHC 32.3 g/dL 32.0 - 01/24 36.0 [facility] HEMATOLOGY MPV 9.0 fL 7.4 - 10.4 01/24 [facility] HEMATOLOGY Hct 25.9 % 36.0 - 01/24 MH 48.0 [facility] HEMATOLOGY Hgb 8.4 g/dL 12.0 - 01/24 MH 16.0 [facility] HEMATOLOGY MCH 27.4 pg 27.0 - 01/24 MH 31.0 [facility] HEMATOLOGY MCV 84.7 fL 80.0 - 01/24 98.0 /2015 [facility] HEMATOLOGY RBC 3.06 M/CMM 4.20 - 01/24 MH 5.40 /2015 [facility] HEMATOLOGY WBC 11.1 K/CMM 3.7 - 10.4 05 [facility] SPECIAL Hgb A1C 5.9 % <=5.6 % 05 CHEMISTRY /2015 [facility] HEMATOLOGY Hgb 8.9 g/dL 12.0 - 01/24 16.0 [facility] HEMATOLOGY Hct 27.5 % 36.0 - 01/24 48.0 /2015 [facility] Chest 1view Chest 1view EXAMINATION: Chest, 1 view 01/23 - DX DX /2015 - [facility] HISTORY: PICC line placement Read by: Sanket Woodruff MD Dictated Date/time: 01/24/16 14:42 Electronically Signed by: Sanket Woodruff MD 01/24/16 14:43 FINAL REPORT FINDINGS: Single frontal view of the chest is submitted for interpretation and compared to 01/23/2016. The patient is rotated to the right. There has been interval placement of a right-sided peripherally inserted central catheter which terminates within the distal superior vena cava. The heart size is un changed. There are no pleural effusions or pneumothorax. The lungs are clear without focal pneumonic consolidation or pulmonary edema. IMPRESSION: 1. New right-sided PICC terminating within the distal superior vena cava. CHEM PANEL B/C Ratio 23 6 - 25 01/23 [facility] CHEM PANEL A/G Ratio 1.1 0.7 - 1.6 01/23 [facility] CHEM PANEL Globulin 2.8 g/dL 2.0 - 4.0 01/23 [facility] CHEM PANEL ALT 8 unit/L 0 - 65 / [facility] CHEM PANEL AST 12 unit/L 0 - 37 01/23 [facility] CHEM PANEL Albumin Lvl 3.1 g/dL 3.5 - 5.0 01/23 [facility] CHEM PANEL Total 5.9 g/dL 6.4 - 8.4 01/23 [facility] CHEM PANEL Alk Phos 97 unit/L 39 - 136 01/23 [facility] CHEM PANEL Bili Total 1.0 mg/dL 0.2 - 1.3 [facility] CHEM PANEL Procalcitoni 0.37 ng/mL 0.00 - 05 n Lvl 0.10 [facility] ENDOCRINOLO Cortisol 17.6 ug/dl 05 GY /2015 [facility] HEMATOLOGY MCH 27.7 pg 27.0 - 01/23 MH 31.0 /2015 [facility] HEMATOLOGY MCV 84.9 fL 80.0 - 01/23 98.0 /2015 [facility] HEMATOLOGY RBC 3.41 M/CMM 4.20 - 01/23 MH 5.40 /2015 [facility] HEMATOLOGY WBC 13.4 K/CMM 3.7 - 10.4 05 [facility] HEMATOLOGY RDW 15.8 % 11.5 - 05 14.5 /2015 [facility] HEMATOLOGY MCHC 32.6 g/dL 32.0 - 01/23 MH 36.0 /2015 [facility] HEMATOLOGY MPV 8.6 fL 7.4 - 10.4 01/23 [facility] HEMATOLOGY Platelet 183 K/CMM 133 - 450 05 [facility] HEMATOLOGY Monocytes # 1.2 K/CMM 0.0 - 0.8 01/23 [facility] HEMATOLOGY Segs 75.6 % 45.0 - 01/23 75.0 [facility] HEMATOLOGY Lymphocytes 12.4 % 20.0 - 01/23 40.0 [facility] HEMATOLOGY Monocytes 9.0 % 2.0 - 12.0 01/23 [facility] HEMATOLOGY Eosinophils 2.7 % 0.0 - 4.0 01/23 [facility] HEMATOLOGY Basophils 0.3 % 0.0 - 1.0 01/23 [facility] HEMATOLOGY Segs-Bands # 10.1 K/CMM 1.5 - 8.1 01/23 [facility] HEMATOLOGY Lymphocytes 1.7 K/CMM 1.0 - 5.5 05 [facility] HEMATOLOGY Eosinophils 0.4 K/CMM 0.0 - 0.5 05 [facility] HEMATOLOGY Basophils # 0.0 K/CMM 0.0 - 0.2 01/23 [facility] HEMATOLOGY RBC Morph Normal 01/23 [facility] Morph Normal 01/23 [facility] (01/24/16 4:30 AM) [facility] BLOOD BANK Antibody Negative 01/22 RESULTS Scrn /2015 [facility] (01/23/16 2:40 PM) [facility] BLOOD BANK ABO/Rh A POS 01/22 RESULTS /2015 [facility] CARDIAC BNP 112 pg/mL <=100 01/22 ENZYMES pg/mL /2015 [facility] BLOOD BANK RBC product Product available 1 01/22 Result Comment: 2015 16:49 [id number] RESULTS /2015 NOTIFIED JOSEPH [facility] (01/23/16 12:14 PM) [facility] URINE AND UA Hyal Cast 5 /LPF 0 - 2 01/22 STOOL /2015 [facility] URINE AND UA Mucus Few /LPF None Seen 01/22 STOOL /LPF /2015 [facility] URINE AND UA Ketones Negative 01/22 STOOL [facility] URINE AND UA RBC 1 /HPF 0 - 2 01/22 STOOL /2015 [facility] URINE AND UA WBC 2 /HPF 0 - 5 01/22 [facility] URINE AND UA <=1.0 0.1 - 1.0 01/22 STOOL Urobilinogen mg/dL /2015 [facility] URINE AND UA Color Light Yellow Yellow 01/22 [facility] *NA* [facility] (01/23/16 11:49 AM) URINE AND UA pH 5.0 5.0 - 8.0 01/22 [facility] URINE AND UA Spec Grav 1.015 <=1.030 01/22 /2015 [facility] URINE AND UA Glucose Negative Negative 01/22 STOOL mg/dL mg/dL /2015 [facility] URINE AND UA Protein Negative Negative 01/22 STOOL mg/dL mg/dL /2015 [facility] URINE AND UA Turbidity Slight Clear 01/22 [facility] *ABN* [facility] (01/23/16 11:49 AM) URINE AND UA Leuk Est Negative Negative 01/22 STOOL /2015 [facility] (01/23/16 11:49 AM) [facility] URINE AND UA Nitrite Negative Negative 01/22 STOOL [facility] (01/23/16 11:49 AM) [facility] URINE AND UA Sq Epi Moderate Few /LPF 01/22 STOOL /LPF /2015 [facility] URINE AND UA Blood Negative Negative 01/22 STOOL [facility] (01/23/16 11:49 AM) [facility] URINE AND UA Bili Negative Negative 01/22 [facility] *NA* [facility] (01/23/16 11:49 AM) CHEM PANEL Magnesium 1.7 mg/dL 1.8 - 2.4 05/ Lvl /2015 [facility] CHEM PANEL AST 15 unit/L 0 - 37 05/ [facility] CHEM PANEL ALT 7 unit/L 0 - 65 05/ [facility] CHEM PANEL Albumin Lvl 2.9 g/dL 3.5 - 5.0 05 [facility] CHEM PANEL Bili Total 0.9 mg/dL 0.2 - 1.3 05 [facility] CHEM PANEL Total 5.2 g/dL 6.4 - 8.4 05 Protein [facility] CHEM PANEL Alk Phos 87 unit/L 39 - 136 05 [facility] CHEM PANEL B/C Ratio 21 6 - 25 05 [facility] CHEM PANEL A/G Ratio 1.3 0.7 - 1.6 05 [facility] CHEM PANEL Globulin 2.3 g/dL 2.0 - 4.0 05 [facility] HEMATOLOGY Basophils # 0.1 K/CMM 0.0 - 0.2 05 [facility] HEMATOLOGY Segs 67.0 % 45.0 - 05 MH 75.0 [facility] HEMATOLOGY Plt Morph Normal 05 [facility] (01/23/16 11:10 AM) [facility] HEMATOLOGY Eosinophils 3.0 % 0.0 - 4.0 05/ [facility] HEMATOLOGY Monocytes 8.9 % 2.0 - 12.0 05 [facility] HEMATOLOGY Segs-Bands # 7.3 K/CMM 1.5 - 8.1 05 [facility] HEMATOLOGY Lymphocytes 2.2 K/CMM 1.0 - 5.5 05/05 # /2016 [facility] HEMATOLOGY Basophils 0.5 % 0.0 - 1.0 05/05 [facility] HEMATOLOGY Monocytes # 1.0 K/CMM 0.0 - 0.8 05/ [facility] HEMATOLOGY Lymphocytes 20.6 % 20.0 - 05/05 MH 40.0 /2015 [facility] HEMATOLOGY Eosinophils 0.3 K/CMM 0.0 - 0.5 05/05 # /2015 [facility] HEMATOLOGY RBC Morph Normal 01/22 [facility] (01/23/16 11:10 AM) [facility] Chest 1view Chest 1view STUDY: Chest 1view DX 01/22 - DX DX - [facility] COMPARISON: Chest x-ray dated 06/15/[address] chest dated 04/30/2015 Read by: Melania Evans MD Dictated Date/time: 01/23/16 11:58 Electronically Signed by: Melania Evans MD 01/23/16 12:00 FINAL REPORT HISTORY: Abnormal chest sounds. FINDINGS: Stable left suprahilar mediastinal mass. Minimal left basilar airspace opacity suggestive of atelectasis. No pleural effusion or pneumothorax is seen. The heart is normal in size. The osseous structures appear unremarkable. IMPRESSION: Minimal left basilar airspace opacity suggestive of atelectasis. Otherwise stable exam. HEMATOLOGY POC 10.5 g/dL 12.0 - 01/19 MH Hemoglobin 16.0 [facility] HEMATOLOGY POC Ion Ca 1.36 1.05 - 01/19 MH mMol/L . [facility] HEMATOLOGY POC 31.0 % 36.0 - 05 MH Hematocrit 48.0 [facility] HEMATOLOGY POC 3.7 meq/L 3.5 - 5.1 / MH Potassium /2015 [facility] HEMATOLOGY POC Sodium 141 meq/L 135 - 145 / MH [facility] HEMATOLOGY POC 27.0 % 36.0 - 05/ MH Hematocrit 48.0 [facility] HEMATOLOGY POC Ion Ca 1.37 1.05 - 01/19 MH mMol/L . [facility] HEMATOLOGY POC 9.2 g/dL 12.0 - 05/ Hemoglobin 16.0 [facility] HEMATOLOGY POC 3.2 meq/L 3.5 - 5.1 05/02 MH Potassium /2015 [facility] HEMATOLOGY POC Sodium 143 meq/L 135 - 145 05/02 MH [facility] ELECTROLYTE POC 3.1 meq/L 3.5 - 5.1 / MH S Potassium /2015 [facility] ELECTROLYTE POC Ion Ca 1.43 1.05 - 01/19 MH S mMol/L . [facility] ELECTROLYTE POC 29.0 % 36.0 - 05/ MH S Hematocrit 48.0 [facility] ELECTROLYTE POC Sodium 141 meq/L 135 - 145 05/ MH S /2016 [facility] ELECTROLYTE POC 9.9 g/dL 12.0 - 01/19 MH S Hemoglobin 16.0 /2015 [facility] HEMATOLOGY INR 1.16 0.85 - 05 MH 1.17 /2015 [facility] HEMATOLOGY PT 15.1 s 12.0 - 05 MH 14.7 /2015 [facility] HEMATOLOGY PTT 28.1 s 22.9 - 01/19 MH 35.8 /2016 [facility] CHEM PANEL POC Glucose 108 mg/dL 70 - 99 05 MH /2015 [facility] Spine Spine lumbar LUMBAR SPINE, 5 VIEWS 10/16 - OPID lumbar series DX /2015 - [place] series DX INDICATION: Low back pain with left radiculopathy. Read by: Cirilo Claros MD Dictated Date/time: 10/16/15 15:36 Electronically Signed by: Cirilo Claros MD 10/16/15 15:40 FINAL REPORT AP, lateral and oblique images were obtained. The is generalized osteopenia. There is mild levoscoliosis. No compression fracture is evident. The L4-L5 and L5-S1 intervertebral disc spaces are quite narrowed. There is facet arthropathy at L4-L5 and L5-S1. Sacroiliac joints are not remarkable. Cholecystectomy has been performed. IMPRESSION: Moderate spondylosis as described. No definite change from CT abdomen pelvis 04/30/2015. SL: 12 Spine Spine lumbar PROCEDURE : LUMBAR SPINE MRI 10/16 [facility] OPID lumbar wo wo - [place] contrast MRI MRI REASON FOR EXAM: M54.5 Low back pain. Read by: Ezequiel Camacho MD Dictated Date/time: 10/17/15 08:33 Electronically Signed by: Ezequiel Camacho MD 10/17/15 09:46 FINAL REPORT COMPARISON: Lumbar spine x-ray 10/16/2015. Reports of an abdomen and pelvic CT performed 04/30/2015 and 03/28/2015 were reviewed. TECHNIQUE: Unenhanced axial and sagittal MR images of the lumbar spine were performed. FINDINGS: Five non-rib bearing lumbar type vertebral bodies are assumed. The lumbar vertebral bodies are normally aligned. There is spondylosis of the lumbar spine and visualized lower thoracic spine with multilevel anterior marginal osteophytes. There are Modic type II degenerative changes of the vertebral endplates at T11 -T12, L4-L5, L5-S1 and the inferior vertebral endplate of L2. There is a 1.5 cm benign hemangioma in the marrow of T12. There is no compression deformity. There is variable disc desiccation at L1-L2, L4 -L5 and L5-S1. There is disc desiccation at all levels of the visualized lower thoracic spine. There are mild degenerative changes of the visualized sacroiliac joints. There are small retroperitoneal lymph nodes which are subcentimeter in size in short axis. There is symmetric fatty atrophy of th e posterior paravertebral musculature. There is a 1 cm left adrenal nodule. (A 1.1 cm left adrenal nodule was reported on the abdomen and pelvic CT performed 03/28/2015.) There is a 1.2 cm left renal co rtical cyst. The visualized common bile duct is mildly prominent measuring a maximal diameter of 9 mm. (The gallbladder is reportedly surgically absent on the comparison CT examinations.) The conus medullaris terminates at the level of L2. The visualized lower thoracic spinal cord demonstrates normal signal intensity. T10-T11 and T11-T12: Broad-based posterior disc bulging/protrusions measuring a maximal AP dimension of approximately 2 mm. Axial images were not performed through these levels limiting evaluation of the foramina and spinal canal. T12-L1: Broad-based posterior disc bulge/protrusion measuring a maximal AP dimension of approximately 3 mm. Right posterior inferior disc extrusion adjacent to the posterior margin of L1 measuring appro ximately 8 mm superior-inferior x 3 mm anterior-posterior. Facet arthropathy. Mild right foraminal narrowing. No significant left foraminal narrowing or spinal stenosis. L1-L2: Broad-based posterior disc bulge/protrusion most pronounced on the right measuring a maximal AP dimension of approximately 4 mm. Right posterior disc protrusion/extrusion/osteophyte complex exten ding adjacent to the posterior margin of L2 measuring approximately 6 mm superior-inferior x 4 mm anterior-posterior. Facet arthropathy. Moderate narrowing of the medial aspect of the right neural lul en. No significant left foraminal narrowing. Mild spinal stenosis. L2-L3: Facet arthropathy. No significant foraminal narrowing or spinal stenosis. L3-L4: Facet arthropathy. Mild narrowing of the medial aspects of both neural foramen. No significant spinal stenosis. L4-L5: Diffuse disc space narrowing. Broad-based posterior disc bulge/ protrusion measuring a maximal AP dimension of approximately 5 mm. Right posterior superior disc extrusion adjacent to the posterior margin of L4 measuring approximately 5 mm superior-inferior x 4 mm anterior-posterior. Facet arthropathy. Partial right hemilaminectomy. Moderate right foraminal narrowing. Mild left foraminal narrowing. Mild spinal stenosis. L5-S1: Diffuse disc space narrowing. Broad-based posterior disc bulge/ protrusion/osteophyte complex measuring a maximal AP dimension of approximately 5 mm. Facet arthropathy. Thickening of the ligamentu m flavum. Partial right hemilaminectomy. Moderate to severe bilateral foraminal narrowing most pronounced medially. Mild spinal stenosis. IMPRESSION: 1. Spondylosis of the lumbar spine and visualized lower thoracic spine with multilevel disc space narrowing, disc desiccation, posterior disc bulging/ protrusions, disc extrusions, foraminal narrowing and mild spinal stenosis as described above. 2. [place] facet arthropathy. 3. Partial right hemilaminectomies at L4-L5 and L5-S1. 4. Degenerative changes of the sacroiliac joints. 5. Stable small left adrenal nodule. 6. Small left renal cortical cyst. 7. Mild extrahepatic biliary dilatation likely due to post cholecystectomy changes. SL: 15 CHEM PANEL eGFR 06/17 Result Comment: The eGFR is calculated using the CKD-EPI formula. In most young, healthy individuals the eGFR will be >90 mL/ min/1.73m2. The eGFR declines with age. An eGFR of 60-89 may be normal in [facility] mL/min/1. some populations, particularly the elderly, for whom the CKD-EPI formula has not been extensively validated. Use of the eGFR is not recommended in the following populations: [address] Individuals with unstable creatinine concentrations, including patients and those with serious co-morbid conditions. Patients with extremes in muscle mass or diet. The data above are obtained from the National Kidney Disease Education Program (NKDEP) which additionally recommends that when the eGFR is used in patients with extremes of body mass index for purposes of drug dosing, the eGFR should be multiplied by the estimated BMI. CHEM PANEL Calcium Lvl 9.8 mg/dL 8.5 - 10.5 06/[address] CHEM PANEL CO2 16 meq/L 24 - 32 06/[address] CHEM PANEL Chloride Lvl 114 meq/L 95 - 109 06/[address] CHEM PANEL Sodium Lvl 138 meq/L 135 - 145 06/17 [facility] CHEM PANEL Potassium 4.5 meq/L 3.5 - 5.1 06/17 [facility] CHEM PANEL BUN 52 mg/dL 7 - 22 06/17 [facility] CHEM PANEL Creatinine 3.8 mg/dL 0.5 - 1.4 06/17 [facility] CHEM PANEL Glucose Lvl 189 mg/dL 70 - 99 06/17 [facility] CHEM PANEL AGAP 12.5 meq/L 10.0 - 06/17 20.0 [facility] HEMATOLOGY Basophils # 0.1 K/CMM 0.0 - 0.2 06/17 [facility] HEMATOLOGY Monocytes # 0.6 K/CMM 0.0 - 0.8 06/17 [facility] HEMATOLOGY Eosinophils 0.3 K/CMM 0.0 - 0.5 06/17 [facility] HEMATOLOGY Segs-Bands # 7.4 K/CMM 1.5 - 8.1 06/17 [facility] HEMATOLOGY Lymphocytes 1.1 K/CMM 1.0 - 5.5 06/17 [facility] HEMATOLOGY Monocytes 6.1 % 2.0 - 12.0 06/17 [facility] HEMATOLOGY Eosinophils 3.6 % 0.0 - 4.0 06/17 [facility] HEMATOLOGY Basophils 0.5 % 0.0 - 1.0 06/17 [facility] HEMATOLOGY Segs 78.1 % 45.0 - 06/17 75.0 [facility] HEMATOLOGY Lymphocytes 11.7 % 20.0 - 06/17 40.0 [facility] HEMATOLOGY MPV 7.5 fL 7.4 - 10.4 06/17 [facility] HEMATOLOGY MCH 26.4 pg 27.0 - 06/17 31.0 [facility] HEMATOLOGY MCV 88.6 fL 80.0 - 06/17 98.0 [facility] HEMATOLOGY RDW 15.9 % 11.5 - 06/17 14.5 [facility] HEMATOLOGY MCHC 29.8 g/dL 32.0 - 06/17 36.0 [facility] HEMATOLOGY RBC 2.80 M/CMM 4.20 - 06/17 [facility] 5.40 /2014 [facility] HEMATOLOGY Platelet 308 K/CMM 133 - 450 06/17 [facility] HEMATOLOGY Hgb 7.4 g/dL 12.0 - 06/17 [facility] 16.0 /2014 [facility] HEMATOLOGY Hct 24.8 % 36.0 - 06/17 [facility] 48.0 /2014 [facility] HEMATOLOGY WBC 9.5 K/CMM 3.7 - 10.4 06/17 [facility] URINE AND UA <=1.0 0.1 - 1.0 06/16 [facility] Urobilinogen mg/dL /2014 [facility] URINE AND UA Leuk Est Trace Negative 06/[address] [facility] [facility] *ABN* [place] (06/16/15 11:09 AM) URINE AND UA Nitrite Negative Negative 06/16 [facility] (06/16/15 11:09 AM) [place] URINE AND UA Blood Negative Negative 06/16 [facility] (06/16/15 11:09 AM) [place] URINE AND UA Bili Negative Negative 06/[address] [facility] *NA* Center (06/16/15 11:09 AM) URINE AND UA Ketones Negative Negative 06/16 [facility] mg/dL mg/dL /2014 [facility] URINE AND UA Glucose Negative Negative 06/16 [facility] mg/dL mg/dL /2014 [facility] URINE AND UA Mucus Few /LPF None Seen 06/16 [facility] /LPF /2014 [facility] URINE AND UA Bacteria Few /HPF None Seen 06/16 [facility] /HPF /2014 [facility] URINE AND UA RBC 1 /HPF 0 - 2 06/16 [facility] URINE AND UA WBC 3 /HPF 0 - 5 06/16 [facility] URINE AND UA Sq Epi Occasional Few /LPF 06/16 [facility] /LPF [facility] URINE AND UA Protein 20 mg/dL Negative 06/16 [facility] mg/dL [facility] URINE AND UA pH 5.0 5.0 - 8.0 06/16 [facility] URINE AND UA Spec Grav 1.006 <=1.030 06/16 [facility] URINE AND UA Turbidity Clear Clear 06/16 [facility] /[address] [facility] (06/16/15 11:09 AM) [place] URINE AND UA Color Light Yellow Yellow 06/[address] [facility] *NA* [place] (06/16/15 11:09 AM) URINE AND Micro? Performed 06/16 [facility] [place] (06/16/15 11:09 AM) CHEM PANEL Phosphorus 3.3 mg/dL 2.5 - 4.5 06/16 [facility] CHEM PANEL Magnesium 2.2 mg/dL 1.8 - 2.4 06/16 [facility] CHEM PANEL Calcium Lvl 9.7 mg/dL 8.5 - 10.5 06/16 [facility] CHEM PANEL eGFR 10 06/16 Result Comment: The eGFR is calculated using the CKD-EPI formula. In most young, healthy individuals the eGFR will be >90 mL/ min/1.73m2. The eGFR declines with age. An eGFR of 60-89 may be normal in mL/min/1. some populations, particularly the elderly, for whom the CKD-EPI formula has not been extensively validated. Use of the eGFR is not recommended in the following populations: [address] Individuals with unstable creatinine concentrations, including patients and those with serious co-morbid conditions. Patients with extremes in muscle mass or diet. The data above are obtained from the National Kidney Disease Education Program (NKDEP) which additionally recommends that when the eGFR is used in patients with extremes of body mass index for purposes of drug dosing, the eGFR should be multiplied by the estimated BMI. CHEM PANEL Sodium Lvl 137 meq/L 135 - 145 06/16 [facility] CHEM PANEL Potassium 4.2 meq/L 3.5 - 5.1 06/16 [facility] CHEM PANEL Glucose Lvl 37 mg/dL 70 - 99 06/16 Result Comment: Critical Result(s) called to anne jon_ at 06/16/2015 03:59_ by lg_. Read back OK. Rechecked. [facility] CHEM PANEL AGAP 13.2 meq/L 10.0 - 06/16 [facility] 20.0 [facility] CHEM PANEL Chloride Lvl 109 meq/L 95 - 109 06/16 [facility] CHEM PANEL Calcium Lvl 9.7 mg/dL 8.5 - 10.5 06/16 [facility] CHEM PANEL CO2 19 meq/L 24 - 32 06/16 [facility] CHEM PANEL Creatinine 4.3 mg/dL 0.5 - 1.4 06/16 [facility] CHEM PANEL BUN 71 mg/dL 7 - 22 06/16 [facility] HEMATOLOGY Platelet 334 K/CMM 133 - 450 06/16 [facility] HEMATOLOGY MPV 8.0 fL 7.4 - 10.4 06/16 [facility] HEMATOLOGY WBC 16.8 K/CMM 3.7 - 10.4 06/16 [facility] HEMATOLOGY RBC 2.82 M/CMM 4.20 - 06/16 5.40 /2014 [facility] HEMATOLOGY Hgb 7.3 g/dL 12.0 - 06/16 16.0 [facility] HEMATOLOGY Hct 23.4 % 36.0 - 06/16 48.0 /2014 [facility] HEMATOLOGY MCH 26.0 pg 27.0 - 06/16 31.0 [facility] HEMATOLOGY MCV 83.1 fL 80.0 - 06/16 [facility] 98.0 [facility] HEMATOLOGY MCHC 31.3 g/dL 32.0 - 06/16 [facility] 36.0 [facility] HEMATOLOGY RDW 14.9 % 11.5 - 06/16 14.5 [facility] HEMATOLOGY PTT 36.5 s 22.9 - 06/16 35.8 /2014 [facility] HEMATOLOGY Basophils # 0.1 K/CMM 0.0 - 0.2 06/16 [facility] HEMATOLOGY Eosinophils 0.2 K/CMM 0.0 - 0.5 06/16 /2014 [facility] HEMATOLOGY Segs-Bands # 13.8 K/CMM 1.5 - 8.1 06/16 [facility] HEMATOLOGY Lymphocytes 1.6 K/CMM 1.0 - 5.5 06/16 [facility] HEMATOLOGY Monocytes # 1.1 K/CMM 0.0 - 0.8 06/16 [facility] HEMATOLOGY Segs 82.2 % 45.0 - 06/16 [place] 75.0 /2014 [facility] HEMATOLOGY Lymphocytes 9.6 % 20.0 - 06/16 [facility] 40.0 /2015 [facility] HEMATOLOGY Monocytes 6.5 % 2.0 - 12.0 06/16 [facility] HEMATOLOGY Eosinophils 1.2 % 0.0 - 4.0 06/16 [facility] HEMATOLOGY Basophils 0.5 % 0.0 - 1.0 06/16 [facility] BLOOD BANK ABO/Rh A POS 06/16 [facility] RESULTS [facility] BLOOD BANK Antibody Negative 06/16 [facility] RESULTS [facility] (06/15/15 8:47 PM) [place] CHEM PANEL Lactic Acid 0.8 mMol/L 0.5 - 2.2 06/16 [facility] CHEM PANEL eGFR 10 06/16 Result Comment: The eGFR is calculated using the CKD-EPI formula. In most young, healthy individuals the eGFR will be >90 mL/ min/1.73m2. The eGFR declines with age. An eGFR of 60-89 may be normal in [facility] mL/min/1. some populations, particularly the elderly, for whom the CKD-EPI formula has not been extensively validated. Use of the eGFR is not recommended in the following populations: [address] Individuals with unstable creatinine concentrations, including patients and those with serious co-morbid conditions. Patients with extremes in muscle mass or diet. The data above are obtained from the National Kidney Disease Education Program (NKDEP) which additionally recommends that when the eGFR is used in patients with extremes of body mass index for purposes of drug dosing, the eGFR should be multiplied by the estimated BMI. CHEM PANEL Sodium Lvl 131 meq/L 135 - 145 06/16 [facility] CHEM PANEL Creatinine 4.5 mg/dL 0.5 - 1.4 06/16 [facility] CHEM PANEL BUN 79 mg/dL 7 - 22 06/16 [facility] CHEM PANEL Glucose Lvl 50 mg/dL 70 - 99 06/16 Result Comment: [facility] Result(s) called to Jessy FranzRN) at _06/15/2015 21:45 by_CPang. Read back OK. CHEM PANEL Chloride Lvl 100 meq/L 95 - 109 06/16 [facility] CHEM PANEL Potassium 4.2 meq/L 3.5 - 5.1 06/16 [facility] CHEM PANEL AGAP 15.2 meq/L 10.0 - 06/16 [place] 20.0 [facility] CHEM PANEL CO2 20 meq/L 24 - 32 06/16 [facility] HEMATOLOGY Basophils 0.3 % 0.0 - 1.0 06/16 [facility] HEMATOLOGY Eosinophils 0.8 % 0.0 - 4.0 06/16 [facility] HEMATOLOGY Monocytes 7.3 % 2.0 - 12.0 06/16 [facility] HEMATOLOGY Lymphocytes 10.0 % 20.0 - 06/16 [place] 40.0 /2014 [facility] HEMATOLOGY Segs 81.6 % 45.0 - 06/16 [place] 75.0 /2014 [facility] HEMATOLOGY Lymphocytes 2.1 K/CMM 1.0 - 5.5 06/16 /2014 [facility] HEMATOLOGY Monocytes # 1.5 K/CMM 0.0 - 0.8 06/16 [facility] HEMATOLOGY Segs-Bands # 16.9 K/CMM 1.5 - 8.1 06/16 [facility] HEMATOLOGY Eosinophils 0.2 K/CMM 0.0 - 0.5 06/16 /2014 [facility] HEMATOLOGY Basophils # 0.1 K/CMM 0.0 - 0.2 06/16 [facility] HEMATOLOGY PTT 34.1 s 22.9 - 06/16 35.8 /2014 [facility] HEMATOLOGY INR 1.18 0.85 - 06/16 1.17 /2014 [facility] HEMATOLOGY PT 15.3 s 12.0 - 06/16 14.7 /2014 [facility] HEMATOLOGY RDW 15.3 % 11.5 - 06/16 14.5 [facility] HEMATOLOGY Platelet 379 K/CMM 133 - 450 06/16 [facility] HEMATOLOGY MCHC 31.3 g/dL 32.0 - 06/16 36.0 [facility] HEMATOLOGY MCH 26.0 pg 27.0 - 06/16 31.0 [facility] HEMATOLOGY MPV 7.9 fL 7.4 - 10.4 06/16 [facility] HEMATOLOGY Hgb 8.1 g/dL 12.0 - 06/16 16.0 [facility] HEMATOLOGY Hct 26.0 % 36.0 - 06/16 [facility] 48.0 /2014 [facility] HEMATOLOGY RBC 3.13 M/CMM 4.20 - 06/16 [facility] 5.40 /2014 [facility] HEMATOLOGY WBC 20.6 K/CMM 3.7 - 10.4 06/16 [facility]2014 [facility] HEMATOLOGY MCV 82.9 fL 80.0 - 06/16 [facility] 98.0 /2014 [facility] Abdomen AP Abdomen AP Exam: Abdomen x-ray. 05/08 - [facility] DX DX - [facility] DATE: 05/08/2015. Read by: Raza Collins MD Dictated Date/time: 05/08/15 15:32 Electronically Signed by: Raza Collins MD 05/08/15 15:35 FINAL REPORT INDICATIONS: Abdominal distention. FINDINGS: Right upper quadrant cholecystectomy clips. Moderate gaseous distention of the stomach. No small or large bowel dilation. IMPRESSION: Moderate gaseous distention of the stomach. Consider placement of an NG tube. CHEM PANEL Phosphorus 3.0 mg/dL 2.5 - 4.5 05/01 [facility] CHEM PANEL Magnesium 1.8 mg/dL 1.8 - 2.4 05/01 [facility] CHEM PANEL eGFR 13 05/01 Result Comment: The eGFR is calculated using the CKD-EPI formula. In most young, healthy individuals the eGFR will be >90 mL/ min/1.73m2. The eGFR declines with age. An eGFR of 60-89 may be normal in [facility] mL/min/1.7 some populations, particularly the elderly, for whom the CKD-EPI formula has not been extensively validated. Use of the eGFR is not recommended in the following populations: [address] Individuals with unstable creatinine concentrations, including patients and those with serious co-morbid conditions. Patients with extremes in muscle mass or diet. The data above are obtained from the National Kidney Disease Education Program (NKDEP) which additionally recommends that when the eGFR is used in patients with extremes of body mass index for purposes of drug dosing, the eGFR should be multiplied by the estimated BMI. CHEM PANEL Chloride Lvl 105 meq/L 95 - 109 05/01 [facility] CHEM PANEL CO2 20 meq/L 24 - 32 05/01 [facility]2014 [facility] CHEM PANEL Calcium Lvl 9.7 mg/dL 8.5 - 10.5 08/ [facility] CHEM PANEL Sodium Lvl 138 meq/L 135 - 145 08/ [facility] CHEM PANEL Potassium 3.6 meq/L 3.5 - 5.1 08 [facility] CHEM PANEL Creatinine 3.5 mg/dL 0.5 - 1.4 08 l [facility] CHEM PANEL Glucose Lvl 95 mg/dL 70 - 99 05/01 [facility] CHEM PANEL BUN 52 mg/dL 7 - 22 08 [facility] CHEM PANEL AGAP 16.6 meq/L 10.0 - 08 20.0 [facility] HEMATOLOGY Segs 81.4 % 45.0 - 08 75.0 [facility] HEMATOLOGY Lymphocytes 8.5 % 20.0 - 08 40.0 /2014 [facility] HEMATOLOGY Basophils 0.4 % 0.0 - 1.0 05/01 [facility] HEMATOLOGY Eosinophils 2.5 % 0.0 - 4.0 05/01 [facility] HEMATOLOGY Eosinophils 0.5 K/CMM 0.0 - 0.5 05/01 # /2014 [facility] HEMATOLOGY Monocytes # 1.4 K/CMM 0.0 - 0.8 05/01 [facility] HEMATOLOGY Segs-Bands # 16.2 K/CMM 1.5 - 8.1 05/01 [facility] HEMATOLOGY Lymphocytes 1.7 K/CMM 1.0 - 5.5 05/01 [facility] HEMATOLOGY Basophils # 0.1 K/CMM 0.0 - 0.2 05/01 [facility] HEMATOLOGY Monocytes 7.2 % 2.0 - 12.0 05/01 [facility] HEMATOLOGY MCHC 31.1 g/dL 32.0 - 08 36.0 /2014 [facility] HEMATOLOGY MCH 27.2 pg 27.0 - 08 31.0 [facility] HEMATOLOGY MCV 87.3 fL 80.0 - 08 [place] 98.0 /2014 [facility] HEMATOLOGY Hct 27.7 % 36.0 - 08/ [place] 48.0 /2014 [facility] HEMATOLOGY WBC 19.9 K/CMM 3.7 - 10.4 05/01 [facility] HEMATOLOGY RBC 3.17 M/CMM 4.20 - 05/01 [facility] 5.40 /2014 [facility] HEMATOLOGY Hgb 8.6 g/dL 12.0 - 05/01 [facility] 16.0 /2014 [facility] HEMATOLOGY MPV 9.3 fL 7.4 - 10.4 05/[address] HEMATOLOGY RDW 15.4 % 11.5 - 05/01 [facility] 14.5 /2014 [facility] HEMATOLOGY Platelet 290 K/CMM 133 - 450 05/01 [facility] [address] [place] [address] URINE AND UA Ketones TR 05/01 [facility] [address] [place] [address] URINE AND UA <=1.0 0.1 - 1.0 05/01 [facility] Urobilinogen mg/dL [facility] URINE AND UA Color Yellow Yellow 05/01 [facility] [address] [place] [address] *NA* Center (05/01/15 2:44 AM) URINE AND UA Turbidity Slight Clear 05/[address] [facility] *ABN* [facility] (05/01/15 2:44 AM) URINE AND UA RBC 3 /HPF 0 - 2 05/01 [facility] [address] [place] [address] URINE AND UA Bacteria Few /HPF None Seen 05/01 [facility] /HPF [address] [place] [address] URINE AND UA Mucus Few /LPF None Seen 05/01 [facility] /F /[address] [place] [address] URINE AND UA Amorph Occasional None Seen 05/01 [facility] /HPF /HPF /[address] [place] [address] URINE AND UA Gran Cast 1 /LPF 05/[address] URINE AND UA Glucose Negative Negative 05/01 [facility] mg/dL mg/dL [facility] URINE AND UA Bili Negative Negative 05/01 [facility] [address] [place] [address] *NA* Center (05/01/15 2:44 AM) URINE AND UA Spec Grav 1.012 <=1.030 05/01 [facility] [address] [place] [address] URINE AND UA pH 5.0 5.0 - 8.0 05/[address] URINE AND UA Protein 70 mg/dL Negative 05/01 [facility] mg/dL [address] [place] [address] URINE AND UA Sq Epi Many /LPF Few /LPF 05/01 [facility] /[address] [place] [address] URINE AND UA WBC 15 /HPF 0 - 5 05/[address] [facility] URINE AND UA Blood Small Negative 05/01 [facility] *ABN* [place] (05/01/15 2:44 AM) URINE AND UA Nitrite Negative Negative 05/[address] [facility] (05/01/15 2:44 AM) [place] URINE AND UA Leuk Est Moderate Negative 05/[address] [facility] *ABN* [place] (05/01/15 2:44 AM) Abdomen/Pel Abdomen/Pelv EXAM: CT ABDOMEN AND PELVIS WITHOUT CONTRAST - [facility] vis wo IV is wo IV - [facility] contrast CT contrast CT This report was dictated by a Coat Operator/Fellow. I have personally reviewed the images as Center well as the Resident's interpretation and agree with the findings. DATE: 04/30/2015 at 1400 hours. Read by: Nida Garcia MD Resident: Nida Garcia MD Dictated Date/time: 04/30/15 14:30 Electronically Signed by: Kamryn Bryant 04/30/15 17:06 FINAL REPORT INDICATION: Abdominal fullness status post colostomy takedown anastomosis with repair of parastomal and ventral abdominal hernia on 04/24/2015. ADDITIONAL INFORMATION: None. COMPARISON: CT abdomen pelvis on 03/28/2015 TECHNIQUE: Helical acquisition of the abdomen and pelvis was obtained from the lung bases to the symphysis pubis after administration of oral contrast, and without administration of intravenous contra st. Axial, sagittal and coronal images were interpreted. FINDINGS: Lung bases demonstrate a small right pleural effusion with adjacent subsegmental atelectasis of the lung bases. High density material within the lung bases may be related to trace aspirated contrast. The heart size is normal. No pericardial effusion. The liver is normal in size and contour. No evidence of biliary ductal dilatation. The spleen is not enlarged. The patient is status post cholecystectomy. The pancreas demonstrates no focal abnormalitie s. The adrenal glands demonstrate no nodules. The kidneys are small and atrophic. No hydronephrosis. Since the prior study, there has been interval sigmoid end-colostomy take down with end-to-end anastomosis with interval fixation of the parastomal hernia and the large ventral abdominal hernia. There h as been interval fixation of the large abdominal wall ventral hernia with expected postsurgical findings of subcutaneous air. Three surgical drains are identified along the mid abdomen. The middle drain terminates within the abdominal wall mesh. The right-sided and left-sided drains terminates in the subcutaneous soft tissues. No abdominal wall collection seen. Midline surgical kwame are present. No free intra-abdominal fluid or air. The stomach, distal esophagus, and duodenal C-loop are unremarkable in appearance. No focal dilatation is identified to suggest obstruction. The colon is normal in course and caliber and appears unremar kable. Multiple diverticula of the hepatic flexure and transverse colon are identified with no inflammatory changes to suggest acute diverticulitis. The appendix is identified and appears normal. Urinary bladder is adequately distended and appears unremarkable. The uterus is unremarkable. Left lateral sixth and seventh rib healed fractures are again seen. Moderate degenerative changes of the spine are again seen including anterior spinal calcification as well as multilevel disc space narrowing. IMPRESSION: 1. Status post sigmoid colostomy takedown with end-to-end anastomosis, parastomal hernia repair, and ventral hernia repair with expected postsurgical findings. No intra-abdominal or abdominal wall collections identified. 2. Diffuse diverticulosis of the hepatic flexure and transverse colon without CT evidence of acute diverticulitis. 3. Atrophic kidneys consistent with chronic kidney disease. Chest wo Chest wo CT CHEST WITHOUT CONTRAST 2015-04-30 14:12:00 04/30 - [facility] contrast CT contrast CT /[facility] - [facility] COMPARISON: Chest x-ray from yesterday Read by: Wally Mcintyre Dictated Date/time: 04/30/15 14:38 Electronically Signed by: Wally Mcintyre 04/30/15 15:11 FINAL REPORT CLINICAL INDICATION: PAIN TECHNIQUE: The chest CT was performed without intravenous contrast. The chest was scanned from apices to bases. Reformatted sagittal and coronal images were obtained and reviewed. FINDINGS: MEDIASTINUM/RADHA/VESSELS: The patient is status post thyroidectomy. There is a left para-aortic mass which demonstrates fluid density and measures approximately 6 x 3 x 6 cm (AP, Transverse and CC dimen sions). There is no mass effect upon the adjacent structures. Lack of intravenous contrast limits evaluation for hilar lymphadenopathy. There are chipewwa three-vessel coronary artery calcifications. Aort ic arch and descending thoracic aortic calcifications are also present. Mitral annular calcifications are also identified. The heart size is normal and there is no pericardial effusion. LUNGS/PLEURA: Small right and trace left pleural effusions. Compressive atelectasis of the bilateral lower lobes with volume loss. Calcified granulomas in the bilateral lower lobes. There is a 4 mm nodu le in the left upper lobe on axial image 80. There is a 3 mm nodule in the right lung apex on axial image 31. Two punctate less than 2 mm nodules are seen in the left lower lobe on axial images 124 and 128. BONES/SOFT TISSUES: Multilevel degenerative changes of the thoracic spine. No suspicious lytic or blastic lesions are present. Left lateral healed 6th and 7th rib fractures. Right lateral healed 6th rib fracture. UPPER ABDOMEN: Please refer to CT abdomen for dedicated findings below the diaphragm. CONCLUSION: 1. Left para-aortic mass which demonstrates fluid density and measures approximately 6 x 3 x 6 cm. Differential considerations include a cyst of mediastinal vs pericardial origin. The abnormal mediasti nal contour seen on radiographs corresponds to this mass, which appears to have been present at least since 2011. MRI would better help characterize this lesion. 2. Small right and trace left pleural effusions with abundant subsegmental atelectasis of the bilateral lower lobes. 3. Few scattered less than 4 mm pulmonary nodules, could represent poorly calcified granulomas vs true nodules. The Fleischner Society guidelines for followup of an incidentally detected 4 mm or smalle r pulmonary nodule are as follows: If the patient is a low risk patient ( non-smoker and no known tumor), a 4 mm nodule does not need followup. If the patient is a high risk patient (smoker), followup chest CT in one year is recommended. If unchanged, no further follow-up is recommended. If the patient has a primary extra thoracic tumor, nodules cannot be ignored. 4. Coronary artery, mitral annular and thoracic aortic calcifications. CHEM PANEL Phosphorus 2.8 mg/dL 2.5 - 4.5 04/30 [facility] /2014 [facility] CHEM PANEL Magnesium 1.9 mg/dL 1.8 - 2.4 04/30 [facility]2014 [facility] CHEM PANEL eGFR 15 04/30 Result Comment: The eGFR is calculated using the CKD-EPI formula. In most young, healthy individuals the eGFR will be >90 mL/ min/1.73m2. The eGFR declines with age. An eGFR of 60-89 may be normal in [facility] mL/min/1.7 /2014 some populations, particularly the elderly, for whom the CKD-EPI formula has not been extensively validated. Use of the eGFR is not recommended in the following populations: [facility] Individuals with unstable creatinine concentrations, including patients and those with serious co-morbid conditions. Patients with extremes in muscle mass or diet. The data above are obtained from the National Kidney Disease Education Program (NKDEP) which additionally recommends that when the eGFR is used in patients with extremes of body mass index for purposes of drug dosing, the eGFR should be multiplied by the estimated BMI. CHEM PANEL Calcium Lvl 10.0 mg/dL 8.5 - 10.5 04/30 [facility] CHEM PANEL CO2 23 meq/L 24 - 32 04/30 [facility] CHEM PANEL Potassium 3.7 meq/L 3.5 - 5.1 04/30 [facility] CHEM PANEL Chloride Lvl 106 meq/L 95 - 109 04/30 [facility] CHEM PANEL Creatinine 3.2 mg/dL 0.5 - 1.4 04/30 [facility] CHEM PANEL Sodium Lvl 140 meq/L 135 - 145 04/30 [facility] CHEM PANEL Glucose Lvl 123 mg/dL 70 - 99 04/30 [facility] CHEM PANEL BUN 51 mg/dL 7 - 22 04/30 [facility] CHEM PANEL AGAP 14.7 meq/L 10.0 - 04/30 20. [facility] HEMATOLOGY Hct 30.0 % 36.0 - 04/30 48.0 [facility] HEMATOLOGY MPV 8.5 fL 7.4 - 10.4 04/30 [facility] HEMATOLOGY Platelet 276 K/CMM 133 - 450 04/30 [facility] HEMATOLOGY MCHC 31.5 g/dL 32.0 - 04/30 36.0 [facility] HEMATOLOGY RDW 15.1 % 11.5 - 04/30 14. [facility] HEMATOLOGY Hgb 9.5 g/dL 12.0 - 04/30 16. [facility] HEMATOLOGY MCV 84.9 fL 80.0 - 04/30 98.0 [facility] HEMATOLOGY MCH 26.8 pg 27.0 - 04/30 31.0 [facility] HEMATOLOGY RBC 3.54 M/CMM 4.20 - 08 [place] 5.40 /2014 [facility] HEMATOLOGY WBC 20.6 K/CMM 3.7 - 10.4 04/30 /2014 [facility] HEMATOLOGY Lymphocytes 11.8 % 20.0 - 08 [place] 40.0 [facility] HEMATOLOGY Segs 78.7 % 45.0 - 04/30 [place] 75.0 /2014 [facility] HEMATOLOGY Eosinophils 2.8 % 0.0 - 4.0 04/30 /2014 [facility] HEMATOLOGY Monocytes 6.2 % 2.0 - 12.0 04/30 /2014 [facility] HEMATOLOGY Basophils 0.5 % 0.0 - 1.0 04/30 /2014 [facility] HEMATOLOGY Basophils # 0.1 K/CMM 0.0 - 0.2 04/30 /2014 [facility] HEMATOLOGY Segs-Bands # 16.2 K/CMM 1.5 - 8.1 04/30 /2014 [facility] HEMATOLOGY Lymphocytes 2.4 K/CMM 1.0 - 5.5 04/30 [facility] # /2015 [facility] HEMATOLOGY Monocytes # 1.3 K/CMM 0.0 - 0.8 04/30 /2014 [facility] HEMATOLOGY Eosinophils 0.6 K/CMM 0.0 - 0.5 04/30 [facility] # /2015 [facility] Chest 2 Chest 2 Chest two views, April 29, 2015 at 1912 04/29 - [facility] views DX views DX /2014 - [facility] HISTORY: 60-year-old female with dyspnea. Read by: Anne Leger MD Dictated Date/time: 04/30/15 08:46 Electronically Signed by: Anne Leger MD 04/30/15 12:49 FINAL REPORT FINDINGS: PA and lateral views of the chest are compared to June 02, 2012. The left side of the mediastinum remains widened with a bulging contour. A similar appearance has been seen since the prior radiograph from May 2012. Chest CT has already been ordered for this pat ient and this lesion can be assessed on that coming study. This could be due to a mass, a vascular lesion, or otherwise. There is plate like atelectasis in both lung bases. The costophrenic sulci are sharp, without effusions. There are drainage catheters and surgical clips over the upper abdomen. IMPRESSION: 1. Persistent abnormal widening of the left side of the mediastinum. Chest CT has been ordered. 2. Mild bibasilar platelike atelectasis. MOLECULAR C difficile Negative Negative 04/29 [facility] DIAGNOSTIC [facility] (04/29/15 11:27 AM) [place] CHEM PANEL eGFR 17 04/29 Result Comment: The eGFR is calculated using the CKD-EPI formula. In most young, healthy individuals the eGFR will be >90 mL/ min/1.73m2. The eGFR declines with age. An eGFR of 60-89 may be normal in [facility] mL/min/1.7 some populations, particularly the elderly, for whom the CKD-EPI formula has not been extensively validated. Use of the eGFR is not recommended in the following populations: [address] Individuals with unstable creatinine concentrations, including patients and those with serious co-morbid conditions. Patients with extremes in muscle mass or diet. The data above are obtained from the National Kidney Disease Education Program (NKDEP) which additionally recommends that when the eGFR is used in patients with extremes of body mass index for purposes of drug dosing, the eGFR should be multiplied by the estimated BMI. CHEM PANEL Bili Total 0.4 mg/dL 0.2 - 1.3 04/29 [facility] CHEM PANEL AST 29 unit/L 0 - 37 04/[address] CHEM PANEL ALT 19 unit/L 0 - 65 04/[address] CHEM PANEL Total 6.2 g/dL 6.4 - 8.4 04/29 [facility] Protein [facility] CHEM PANEL Albumin Lvl 2.9 g/dL 3.5 - 5.0 04/[address] CHEM PANEL Potassium 3.7 meq/L 3.5 - 5.1 04/29 [facility] CHEM PANEL CO2 23 meq/L 24 - 32 04/[address] CHEM PANEL Chloride Lvl 109 meq/L 95 - 109 04/[address] CHEM PANEL Calcium Lvl 10.1 mg/dL 8.5 - 10.5 04/[address] CHEM PANEL Alk Phos 128 unit/L 39 - 136 04/[address] CHEM PANEL Creatinine 2.9 mg/dL 0.5 - 1.4 04/29 [facility] Lvl /2014 [facility] CHEM PANEL Sodium Lvl 142 meq/L 135 - 145 04/29 [facility] CHEM PANEL BUN 51 mg/dL 7 - 22 04/29 [facility] CHEM PANEL Glucose Lvl 122 mg/dL 70 - 99 04/29 [facility] CHEM PANEL B/C Ratio 18 6 - 25 04/29 [facility] CHEM PANEL A/G Ratio 0.9 0.7 - 1.6 04/29 [facility] CHEM PANEL AGAP 13.7 meq/L 10.0 - 08 20.0 [facility] CHEM PANEL Globulin 3.3 g/dL 2.0 - 4.0 04/29 [facility] HEMATOLOGY MPV 8.9 fL 7.4 - 10.4 04/29 [facility] HEMATOLOGY Platelet 249 K/CMM 133 - 450 04/29 [facility] HEMATOLOGY MCV 86.0 fL 80.0 - 04/29 98.0 [facility] HEMATOLOGY RDW 14.6 % 11.5 - 08 14.5 /2014 [facility] HEMATOLOGY MCH 26.6 pg 27.0 - 08 31.0 [facility] HEMATOLOGY MCHC 30.9 g/dL 32.0 - 08 Result [facility] 36.0 /2014 Comment: [facility] low HEMATOLOGY Hgb 9.3 g/dL 12.0 - 08 16.0 /2014 [facility] HEMATOLOGY Hct 30.2 % 36.0 - 08 48.0 /2014 [facility] HEMATOLOGY RBC 3.52 M/CMM 4.20 - 0810 [place] 5.40 /2014 [facility] HEMATOLOGY WBC 18.5 K/CMM 3.7 - 10.4 08 [facility] HEMATOLOGY Basophils # 0.1 K/CMM 0.0 - 0.2 04/29 [facility] HEMATOLOGY Lymphocytes 1.7 K/CMM 1.0 - 5.5 04/29 [place] # /2014 [facility] HEMATOLOGY Monocytes # 1.1 K/CMM 0.0 - 0.8 04/29 [facility] HEMATOLOGY Eosinophils 0.5 K/CMM 0.0 - 0.5 08 [place] # /2014 [facility] HEMATOLOGY Segs-Bands # 15.1 K/CMM 1.5 - 8.1 04/29 [facility] HEMATOLOGY Basophils 0.5 % 0.0 - 1.0 04/29 [facility] HEMATOLOGY Monocytes 6.0 % 2.0 - 12.0 04/29 [facility] HEMATOLOGY Eosinophils 2.8 % 0.0 - 4.0 04/29 [facility] HEMATOLOGY Segs 81.5 % 45.0 - 08 [place] 75.0 [facility] HEMATOLOGY Lymphocytes 9.2 % 20.0 - 08 [place] 40.0 [facility] CHEM PANEL Magnesium 1.8 mg/dL 1.8 - 2.4 04/28 [facility] Lvl [facility] CHEM PANEL Phosphorus 3.1 mg/dL 2.5 - 4.5 04/28 [facility] CHEM PANEL Globulin 3.2 g/dL 2.0 - 4.0 04/26 [facility] CHEM PANEL A/G Ratio 0.9 0.7 - 1.6 04/26 [facility] CHEM PANEL B/C Ratio 19 6 - 25 04/26 [facility] CHEM PANEL Albumin Lvl 3.0 g/dL 3.5 - 5.0 04/26 [facility] CHEM PANEL Total 6.2 g/dL 6.4 - 8.4 04/26 [facility] CHEM PANEL ALT 16 unit/L 0 - 65 04/26 [facility] CHEM PANEL AST 14 unit/L 0 - 37 04/26 [facility] CHEM PANEL Alk Phos 104 unit/L 39 - 136 04/26 [facility] CHEM PANEL Bili Total 0.3 mg/dL 0.2 - 1.3 04/26 [facility] HEMATOLOGY INR 1.28 0.85 - 04/26 1.17 [facility] HEMATOLOGY PT 16.1 s 12.0 - 04/26 [facility] 14.7 [facility] HEMATOLOGY RBC Morph Normal 04/[address] [facility] (04/24/15 2:52 AM) [place] HEMATOLOGY Plt Morph Normal 04/[address] [facility] (04/24/15 2:52 AM) [place] PARATHYROID Ca Norm WB 1.28 1.05 - 04/24 [facility] PROFILE mMol/L 1. [facility] PARATHYROID Ca Ion WB 1.39 1.05 - 04/24 [facility] PROFILE mMol/L 1. [facility] BLOOD BANK Antibody Negative 04/23 [facility] RESULTS [facility] (04/23/15 8:49 AM) [place] BLOOD BANK ABO/Rh A POS 04/23 [facility] RESULTS /2014 [facility] ELECTROLYTE Potassium WB 3.3 meq/L 3.5 - 5.1 04/23 [facility] S /2014 [facility] CHEM PANEL Bili Total 0.5 mg/dL 0.2 - 1.3 04/[address] CHEM PANEL Alk Phos 176 unit/L 39 - 136 04/[address] CHEM PANEL AST 5 unit/L 0 - 37 04/[address] CHEM PANEL ALT 13 unit/L 0 - 65 04/[address] CHEM PANEL Albumin Lvl 3.7 g/dL 3.5 - 5.0 04/[address] CHEM PANEL Total 7.3 g/dL 6.4 - 8.4 04/16 [facility] Protein 2014 [facility] CHEM PANEL Globulin 3.6 g/dL 2.0 - 4.0 04/[address] CHEM PANEL A/G Ratio 1.0 0.7 - 1.6 04/[address] CHEM PANEL B/C Ratio 23 6 - 25 04/[address] SPECIAL Hgb A1C 6.7 % <=5.6 % 04/16 [facility] CHEMISTRY /[address] [place] [address] Abdomen/Pel Abdomen/Pelv EXAM: Abdomen/Pelvis wo contrast CT 03/28 - [facility] vis wo IV is wo IV /2014 - [place] contrast CT contrast CT Imaging DATE: Mar 28, 2015 12:00:07 PM Read by: Simon Germain MD Dictated Date/time: 03/28/15 14:56 Electronically Signed by: Simon Germain MD 03/28/15 16:48 FINAL REPORT INDICATION: 553.2 Ventral Hernia without Mention of Obstruction or Gangrene; 789.00 Abdominal Pain, Unspecified Site COMPARISON: CT abdomen pelvis 06/09/2012. TECHNIQUE: Helical 5 mm axially oriented images were obtained from the lung bases through the ischial tuberosities with oral contrast and without IV contrast. Sagittal and coronal reformat images of the abdomen and pelvis are provided. FINDINGS: The included lung bases are free of consolidation or pleural effusion. There is minimal subsegmental atelectasis within the medial left lower lobe. The heart size is normal without a pericardial effusion. Noncontrast evaluation of the abdomen demonstrates a normal attenuation of the liver and spleen. There is normal morphology of the liver, spleen and pancreas. The right adrenal gland is of normal appear ance. The left adrenal gland again demonstrates a 1.1 cm nodule along the medial limb measuring approximately 11 Hounsfield units that is unchanged. The gallbladder is surgically absent without biliary dilatation. The right and left flank kidneys are somewhat atrophic, unchanged in appearance. There is no hydronephrosis or hydroureter. The urinary bladder is relatively decompressed. The uterus is ante flexed and of normal size without adnexal masses. The stomach is well distended with oral contrast without gastric wall thickening. There is no large or small bowel dilatation. A normal caliber appendix is noted. Again noted is a left sided colostomy a nd a rectosigmoid Crystal's pouch. Multiple diverticula measuring up to 1.5 cm in diameter are noted along the colon from the cecum to the colostomy. There is a large left parastomal hernia with th e hernia defect measuring 4.8 cm transverse x 4.6 cm craniocaudal. This hernia contains nondilated loops of both large and small bowel. There is minimal fat stranding adjacent to one of the loops of co theo as it passes through the hernia defect. Two additional hernia defects are noted along the right and left aspects of the lower abdominal wall below the level of the umbilicus. The hernia defect on th e right measures approximately 4.7 cm transverse x 4.0 cm craniocaudal, containing nondilated loops of large and small bowel. The hernia defect on the left measures approximately 7.1 cm transverse x 5.1 cm craniocaudal containing nondilated loops of small bowel. There is no abdominal, mesenteric, retroperitoneal or pelvic bulky lymphadenopathy. There is no abdominal or pelvic free fluid or gas. The abdominal aorta and IVC are of normal caliber. There is mild scattered atherosclerotic calcification along the abdominal aorta. The regional skeleton demonstrates advanced degenerative disc disease at T10-T11 and T11-T12 as well as L4-L5 and L5-S1. IMPRESSION: 1. Three ventral abdominal wall hernia defects are noted, one of which is a parastomal hernia adjacent to the left-sided colostomy site. All of the defects contain some combination of nondilated loops of large and small bowel as described. 2. Diverticulosis involving the colon from the cecum to the colostomy site. 3. There is a small focus of fat stranding adjacent to one of the loops of colon as it passes through the parastomal hernia defect that may indicate mild inflammation. There is no adjacent fluid. 4. No change in a 1.1 cm left adrenal nodule measuring approximately 11 Hounsfield units (noncontrast) most likely representing a small adrenal adenoma. Hand 3 Hand 3 views EXAM: BILATERAL HAND 4 VIEWS 02/28 - [facility] views Bilateral DX /2014 - [place] Bilateral DX DATE: Feb 28, 2015 02:07:00 PM Read by: Zbigniew oCrdero MD Dictated Date/time: 02/28/15 17:10 Electronically Signed by: Zbigniew Cordero MD 02/28/15 17:13 FINAL REPORT INDICATION: 729.5 Pain in Limb COMPARISON: None available TECHNIQUE: PA, lateral, [place] and oblique radiographs of each hand FINDINGS: No fracture, dislocation or other acute bony abnormality is identified. There is joint space there is scattered throughout the DIP and PIP joints. Marginal erosions are present at the left fou rth DIP and PIP joints and right third DIP joint. Additional erosions at the radial aspect of the right first IP joint and right second metacarpal head. Mild soft tissue is present. IMPRESSION: Joint space narrowing of the interphalangeal joints with erosions involving the IP joint and right second metacarpal head. Recommend correlation for inflammatory arthropathy. Vital Signs Vital Sign Value Date Comments Source Respitory Rate 20 01/13/2018 [facility] Systolic (mm Hg) 103 01/13/2018 [facility] Diastolic (mm Hg) 55 01/13/2018 [facility] Respitory Rate 14 01/13/2018 [facility] Systolic (mm Hg) 99 01/13/2018 [facility] Diastolic (mm Hg) 57 01/13/2018 [facility] Systolic (mm Hg) 100 01/13/2018 [facility] Diastolic (mm Hg) 58 01/13/2018 [facility] Respitory Rate 11 01/13/2018 [facility] BMI Calculated 37.21 01/13/2018 [facility] Weight 92.273 01/13/2018 [facility] Height 157.48 cm 01/13/2018 [facility] Height 157.48 cm 01/13/2018 [facility] Weight 92.273 01/13/2018 [facility] BMI Calculated 37.21 01/13/2018 [facility] BMI Calculated 36.84 01/13/2018 [facility] Weight 91.364 01/13/2018 [facility] Height 157.48 cm 01/13/2018 [facility] Respitory Rate 19 11/02/2017 [facility] Systolic (mm Hg) 139 11/02/2017 [facility] Diastolic (mm Hg) 68 11/02/2017 [facility] BMI Calculated 37.94 11/02/2017 [facility] Weight 94.091 11/02/2017 [facility] Height 157.48 cm 11/02/2017 [facility] Systolic (mm Hg) 105 10/29/2017 [facility] Diastolic (mm Hg) 58 10/29/2017 [facility] Respitory Rate 17 10/29/2017 [facility] Weight 94.091 10/29/2017 [facility] Height 157.48 cm 10/29/2017 [facility] BMI Calculated 37.94 10/29/2017 [facility] Systolic (mm Hg) 103 10/29/2017 [facility] Diastolic (mm Hg) 60 10/29/2017 [facility] Respitory Rate 20 10/29/2017 [facility] Systolic (mm Hg) 106 10/29/2017 [facility] Diastolic (mm Hg) 76 10/29/2017 [facility] Respitory Rate 18 10/29/2017 [facility] Systolic (mm Hg) 118 06/08/2017 [facility] Diastolic (mm Hg) 55 06/08/2017 [facility] Respitory Rate 18 06/08/2017 [facility] Heart Rate 74 06/08/2017 [facility] Heart Rate 76 06/08/2017 [facility] Systolic (mm Hg) 115 06/08/2017 [facility] Diastolic (mm Hg) 59 06/08/2017 [facility] Respitory Rate 18 06/08/2017 [facility] Heart Rate 80 06/08/2017 [facility] Respitory Rate 18 06/08/2017 [facility] Systolic (mm Hg) 118 06/08/2017 [facility] Diastolic (mm Hg) 59 06/08/2017 [facility] Weight 95.455 06/08/2017 [facility] Height 157.48 cm 06/08/2017 [facility] Temperature Oral (F) 98.0 F 06/08/2017 [facility] BMI Calculated 38.49 06/08/2017 [facility] Weight 95 07/17/2016 [facility] BMI Calculated 39.04 07/17/2016 [facility] Height 156 cm 07/17/2016 [facility] Temperature Oral (F) 97.6 F 07/17/2016 [facility] Heart Rate 66 07/17/2016 [facility] Systolic (mm Hg) 120 07/17/2016 [facility] Diastolic (mm Hg) 72 07/17/2016 [facility] Temperature Oral (F) 97.8 F 07/14/2016 [facility] Heart Rate 92 07/14/2016 [facility] Respitory Rate 18 07/14/2016 [facility] Systolic (mm Hg) 142 07/14/2016 [facility] Diastolic (mm Hg) 81 07/14/2016 [facility] Heart Rate 76 07/05/2016 [facility] Respitory Rate 16 07/05/2016 [facility] Systolic (mm Hg) 114 07/05/2016 [facility] Diastolic (mm Hg) 70 07/05/2016 [facility] Temperature Oral (F) 97.7 F 07/05/2016 [facility] Respitory Rate 18 07/05/2016 [facility] Systolic (mm Hg) 107 07/05/2016 [facility] Diastolic (mm Hg) 68 07/05/2016 [facility] Temperature Oral (F) 97.7 F 07/05/2016 [facility] Heart Rate 73 07/05/2016 [facility] Heart Rate 64 07/05/2016 [facility] Systolic (mm Hg) 145 07/05/2016 [facility] Diastolic (mm Hg) 79 07/05/2016 [facility] Respitory Rate 17 07/05/2016 [facility] Temperature Oral (F) 97.5 F 07/05/2016 [facility] BMI Calculated 39.22 07/04/2016 [facility] Weight 97.273 07/04/2016 [facility] Height 157.48 cm 07/04/2016 [facility] Weight 100 07/03/2016 [facility] BMI Calculated 37.84 07/03/2016 [facility] Height 162.56 cm 07/03/2016 [facility] Heart Rate 78 01/27/[address] [facility] Temperature Oral (F) 97.1 F 01/27/[address] [facility] Respitory Rate 16 01/27/[address] [facility] Systolic (mm Hg) 128 01/27/[address] [facility] Diastolic (mm Hg) 74 01/27/[address] [facility] Systolic (mm Hg) 111 01/27/[address] [facility] Diastolic (mm Hg) 69 01/27/[address] [facility] Heart Rate 79 01/27/[address] [facility] Temperature Oral (F) 97.8 F 01/27/[address] [facility] Respitory Rate 20 01/27/[address] [facility] Respitory Rate 16 01/27/[address] [facility] Heart Rate 72 01/27/[address] [facility] Temperature Oral (F) 98.2 F 01/27/[address] [facility] Systolic (mm Hg) 102 01/27/[address] [facility] Diastolic (mm Hg) 61 01/27/[address] [facility] Weight 100.966 01/21/[address] [facility] BMI Calculated 37.57 01/20/[address] [facility] Weight 93.182 01/20/[address] [facility] Height 157.48 cm 01/20/[address] [facility] BMI Calculated 39.19 01/16/[address] [facility] Height 154.94 cm 01/16/[address] [facility] Weight 94.091 01/16/[address] [facility] Weight 93.4 06/17/2015 [facility] Systolic (mm Hg) 117 06/17/2015 [facility] Diastolic (mm Hg) 68 06/17/2015 [facility] Temperature Oral (F) 98.4 F 06/17/2015 [facility] Heart Rate 72 06/17/2015 [facility] Respitory Rate 18 06/17/2015 [facility] Heart Rate 86 06/17/2015 [facility] Temperature Oral (F) 98.0 F 06/17/2015 [facility] Respitory Rate 18 06/17/2015 [facility] Systolic (mm Hg) 97 06/17/2015 [facility] Diastolic (mm Hg) 61 06/17/2015 [facility] Temperature Oral (F) 97.5 F 06/17/2015 [facility] Heart Rate 76 06/17/2015 [facility] Respitory Rate 18 06/17/2015 [facility] Systolic (mm Hg) 96 06/17/2015 [facility] Diastolic (mm Hg) 60 06/17/2015 [facility] BMI Calculated 37.57 06/16/2015 [facility] Weight 93.182 06/16/2015 [facility] Height 157.48 cm 06/16/2015 [facility] Weight 93.182 06/16/2015 [facility] Height 157.48 cm 06/16/2015 [facility] BMI Calculated 37.57 06/16/2015 [facility] Heart Rate 54 05/10/2015 [facility] Systolic (mm Hg) 98 05/10/2015 [facility] Diastolic (mm Hg) 61 05/10/2015 [facility] Respitory Rate 18 05/10/2015 [facility] Temperature Oral (F) 97.6 F 05/10/2015 [facility] Respitory Rate 20 05/09/2015 [facility] Heart Rate 93 05/09/2015 [facility] Temperature Oral (F) 98.2 F 05/09/2015 [facility] Systolic (mm Hg) 119 05/09/2015 [facility] Diastolic (mm Hg) 74 05/09/2015 [facility] Respitory Rate 18 05/09/2015 [facility] Systolic (mm Hg) 117 05/09/2015 [facility] Diastolic (mm Hg) 69 05/09/2015 [facility] Heart Rate 96 05/09/2015 [facility] Temperature Oral (F) 98.5 F 05/09/2015 [facility] Weight 103.227 05/09/2015 [facility] Height 157.48 cm 05/08/2015 [facility] BMI Calculated 42.16 05/08/2015 [facility] Weight 104.545 05/08/2015 [facility] Temperature Oral (F) 98.2 F 05/01/2015 [facility] Heart Rate 86 05/01/2015 [facility] Respitory Rate 18 05/01/2015 [facility] Systolic (mm Hg) 97 05/01/2015 [facility] Diastolic (mm Hg) 66 05/01/2015 [facility] Temperature Oral (F) 98.0 F 05/01/2015 [facility] Heart Rate 79 05/01/2015 [facility] Respitory Rate 18 05/01/2015 [facility] Systolic (mm Hg) 100 05/01/2015 [facility] Diastolic (mm Hg) 69 05/01/2015 [facility] Respitory Rate 18 05/01/2015 [facility] Systolic (mm Hg) 113 05/01/2015 [facility] Diastolic (mm Hg) 72 05/01/2015 [facility] Heart Rate 85 05/01/2015 [facility] Temperature Oral (F) 98.5 F 05/01/2015 [facility] BMI Calculated 41.61 04/24/2015 [facility] Weight 103.182 04/24/2015 [facility] Height 157.48 cm 04/24/2015 [facility] Height 157.48 cm 04/16/2015 [facility] BMI Calculated 41.61 04/16/2015 [facility] Weight 103.2 04/16/2015 [facility] Encounters Location Location Encounter Encounter Reason Attending ADM DC Status Source Details Type Number For Provider Date Date Visit [facility] Outpt Diag [id number] Dio 11/21 11/22 [facility] [place] [facility] Outpt Diag [id number] Frida 02/28 03/01 [facility] [place] [facility] [place] [facility] Outpt Diag [id number] Ciro 03/28 03/29 [facility] 3 [facility] Wound Care [id number] Reena 04/17 05/17 [place] [facility] [facility] [place] /2014 [facility] [id number] Ciro 04/23 05/01 [place] 3 Andrassy [facility] OBS [id number] Isreal 05/09 05/09 [place] Observation 1 [facility] OBS [id number] Ciro 06/16 06/17 [place] [facility] [facility] 9 [facility] Outpatient [id number] NOE 10/14 [facility] [place] [facility] Outpt Diag [id number] Arnaldo Torres 10/16 10/17 [facility] Outpatient [id number] BARAA 10/29 [facility] 1 [place] Outpatient [id number] NOE 12/16 [facility] 2 [place] Outpatient [id number] BARAA 12/30 [facility] 3 [place] Outpatient [id number] BARAA 01/19 [facility] [id number] Baraa 01/19 01/26 [facility] [place] [facility] Outpatient [id number] BARAA 02/03 [facility] 5 [place] [facility] Outpt Diag [id number] Angie 02/03 02/04 [facility] Outpatient [facility] Outpatient [id number] BARAA 02/24 [facility] [id number] Kevin Galvez 07/03 07/05 [facility] Recurring [id number] Dio 07/14 08/13 [place] 1 [facility] Emergency [id number] Salazar 06/07 06/08 [facility] Outpatient [id number] Dio 09/27 09/27 [facility] Bedded [id number] Dio 10/29 10/29 [place] Outpatient 1 Belen [facility] Bedded [id number] Riaz 11/02 11/02 [place] Outpatient 2 Galvan [facility] Day Surgery [id number] Shabana 01/13 01/14 [place] 3 [facility] Procedures Procedure Code Date Perfomer Comments Source Closure of colostomy [id number] 04/22/2015 [facility] Closure of colostomy [id number] 04/22/2015 [facility] Bilateral tubal [id number] [facility] Carpal tunnel release [id number] [facility] Cholecystectomy [id number] [facility] [place] Complete [id number] [facility] [place] thyroidectomy [facility] Exploratory [id number] [facility] laparotomy [facility] Laminectomy [id number] [facility] Operation [id number] [facility] Tonsillectomy and [id number] [facility] [place] adenoidectomy [facility] Umbilical [id number] [facility] hernioplasty [facility] Bilateral tubal [id number] [place] ligation Carpal tunnel release [id number] [facility] [place] Cholecystectomy [id number] [facility] [place] Complete [id number] [facility] [place] thyroidectomy Exploratory [id number] [facility] [place] laparotomy Laminectomy [id number] [facility] [place] Lumbar spinal fusion [id number] [facility] [place] Operation [id number] [facility] [place] Tonsillectomy and [id number] [facility] [place] adenoidectomy Umbilical [id number] [facility] [place] hernioplasty Lumbar spinal fusion [id number] [facility] [place] operation [id number] [facility] Partial thyroidectomy [id number] [facility] Bilateral tubal [id number] [facility] ligation [place] Carpal tunnel release [id number] [facility] [place] Cholecystectomy [id number] [facility] [place] Complete [id number] [facility] thyroidectomy [place] Exploratory [id number] [facility] laparotomy [place] Laminectomy [id number] [facility] [place] Operation [id number] [facility] [place] Tonsillectomy and [id number] [facility] adenoidectomy [place] Umbilical [id number] [facility] hernioplasty [place] Bilateral tubal [id number] [facility] ligation [facility] Carpal tunnel release [id number] [facility] Cholecystectomy [id number] [facility] Complete [id number] [facility] thyroidectomy [facility] Exploratory [id number] [facility] laparotomy [facility] Laminectomy [id number] [facility] Operation [id number] [facility] Tonsillectomy and [id number] [facility] adenoidectomy [facility] Umbilical [id number] [facility] hernioplasty [facility] Bilateral tubal [id number] [facility] Carpal tunnel release [id number] [facility] Cholecystectomy [id number] [facility] Complete [id number] [facility] Exploratory [id number] [facility] Laminectomy [id number] [facility] Operation [id number] [facility] Tonsillectomy and [id number] [facility] adenoidectomy [facility] Umbilical [id number] [facility] hernioplasty [facility]
--- NOTE | 2018-05-22 14:36 | RAD REPORT ---
EXAM DESCRIPTION: RAD - Knee Right 3 View - 05/22/2018 2:26 pm CLINICAL HISTORY: Right knee pain FINDINGS: No fracture or dislocation is seen. The bones are osteoporotic. There appears to be a joint effusion. Diffuse edema is present within the subcutaneous tissues
[2018-05-22 14:42] LABS: Absolute Lymphocytes (CBC) 0.9 K/uL (0.7-4.9); Absolute Monocytes 0.9 K/uL (0.1-1.3); Basophils % 0.4 % (0-1.3); Eosinophils % 0.1 % (0-4.4); Lymphocytes % 3.8 % (15.3-44.8); MCH 31.1 pg (27.0-35.0); MCV 95.3 fL (80-100); MPV 9.2 fL (7.6-11.3); Monocytes % 3.8 % (3.3-12.3); RBC Red Blood Cell Count 3.57 M/uL (3.86-4.86)
[2018-05-22 15:19] LABS: Blood Morphology Comment NOT SEEN (NOT SEEN); Platelet Estimate ADEQ; Urine White Blood Cell Casts OK
[2018-05-22 15:45] LABS: Potassium 4.3 mmol/L (3.5-5.1)
[2018-05-22 18:05] LABS: ALT/SGPT 11 U/L (12-78); AST/SGOT 8 U/L (15-37); Albumin 2.8 g/dL (3.4-5.0); Alkaline Phosphatase 126 U/L (45-117); Amylase Level 71 U/L (25-115); Bilirubin Direct < 0.1 mg/dL (0-0.2); Bilirubin Total 0.2 mg/dL (0.2-1.0); CKMB Creatine Kinase MB 1.4 ng/mL (0.3-3.6); Creatine Phosphokinase 66 U/L (26-192); Lipase 172 U/L (73-393); Protein, Total 6.9 g/dL (6.4-8.2); Troponin (Emerg Dept Use Only) 0.05 ng/mL (0.0-0.045)
[2018-05-22] MEDS ORDERED: NA CHLORIDE 0.9% 1,000 ML ONE (18:10)
[2018-05-22 18:41] LABS: Protime INR 1.19
--- NOTE | 2018-05-22 19:44 | RAD REPORT ---
EXAM DESCRIPTION: CT - Abdomen Pelvis Wo Contrast - 05/22/2018 7:07 pm CLINICAL HISTORY: Leukocytosis, FeverAbdominal pain COMPARISON: Abdomen Pelvis Wo Contrast dated 03/22/2018; TECHNIQUE: Computed axial tomography of the abdomen and pelvis was obtained. IV was not requested. O ral contrast was given. Coronal reconstructions performed. All CT scans are performed using dose optimization technique as appropriate and may include automated exposure control or mA/KV adjustment according to patient size. FINDINGS: The evaluation of solid organs and vessels is limited secondary to the lack of contrast a dministration. The liver, spleen, pancreas, adrenals and kidneys appear grossly normal. The appendix is normal. Anterior abdominal wall abscess has significantly decreased in size measuring about 3 centimeters. Mild to moderate thickening of the wall of transverse colon is present. Mild stranding is present wit hin the adjacent fat. Minimal pneumatosis intestinalis of the transverse colon is diminished from the prior exam IMPRESSION: Anterior abdominal wall abscess has significantly diminished in size currently measuring 4 centimeters Mild to moderate thickening of the wall of the transverse colon probably indicating colitis Minimal pneumatosis intestinalis is diminished from the prior exam
--- NOTE | 2018-05-22 19:52 | RAD REPORT ---
EXAM DESCRIPTION: RADChest Single View05/22/2018 5:34 pm CLINICAL HISTORY: Leukocytosis COMPARISON: Chest Single View dated 03/21/2018; FINDINGS: The lungs appear clear of acute infiltrate. The heart is mildly enlarged. Central venous catheter has its limbs in the superior cava IMPRESSION: No acute abnormalities displayed
[2018-05-22] MEDS ORDERED: VANCOMYCIN 1 GM/250 ML BAG ONE (20:38)
[2018-05-22] MEDS ORDERED: PIPER/TAZO/NS 3.375gm 3.375 GM/100 ML BAG ONE (20:38)
--- NOTE | 2018-05-22 20:51 | EDPHYS ---
Physician Documentation [facility] Name: Danielle Yan Age: 63 yrs Sex: Female : 1955 Arrival Date: 05/22/2018 Time: 13:45 Bed 5 Private MD: ED Physician Dio Wiley HPI: 05/22 14:46 This 63 yrs old Female presents to ER via EMS with complaints of Low Blood pm1 Sugar. 14:46 The patient or guardian reports hypoglycemia, that was potentially precipitated by pm1 Skipped her lunch yesterday, with the patient's symptoms witnessed by family, Treatment prior to arrival includes: EMS administered glucagon. Onset: The symptoms/episode began/occurred just prior to arrival. Associated signs and symptoms: Pertinent negatives: chest pain, shortness of breath, headache, seizure. Current symptoms: In the emergency department the patient's symptoms have improved. The patient has experienced a previous episode, many years ago. Historical: - Allergies: 13:48 No Known Allergies; la1 - PMHx: 13:48 Diabetes - NIDDM; Gout; Hypertension; Hypothyroidism; PERIPHERAL NEUROPATHY; Renal la1 Disease; Dialysis; - Immunization history:: Adult Immunizations up to date. - Social history:: Smoking status: Patient/guardian denies using tobacco. - Ebola Screening: : No symptoms or risks identified at this time. ROS: 14:46 Eyes: Negative for injury, pain, redness, and discharge, ENT: Negative for injury, pm1 pain, and discharge, Neck: Negative for injury, pain, and swelling, Cardiovascular: Negative for chest pain, palpitations, and edema. 14:46 Respiratory: Negative for shortness of breath, cough, wheezing, and pleuritic chest pain, Abdomen/GI: Negative for abdominal pain, nausea, vomiting, diarrhea, and constipation, Back: Negative for injury and pain, : Negative for injury, bleeding, discharge, and swelling, MS/Extremity: Negative for injury and deformity, Skin: Negative for injury, rash, and discoloration, Neuro: Negative for headache, weakness, numbness, tingling, and seizure. 14:46 Constitutional: Positive for low grade fever 99 yesterday, Negative for poor PO intake. 14:46 Endocrine: Positive for hypoglycemia prior to arrival. Exam: 14:46 Constitutional: This is a well developed, well nourished patient who is awake, alert, pm1 and in no acute distress. Head/Face: Normocephalic, atraumatic. Eyes: Pupils equal round and reactive to light, extra-ocular motions intact. Lids and lashes normal. Conjunctiva and sclera are non-icteric and not injected. Cornea within normal limits. Periorbital areas with no swelling, redness, or edema. ENT: Nares patent. No nasal discharge, no septal abnormalities noted. Tympanic membranes are normal and external auditory canals are clear. Oropharynx with no redness, swelling, or masses, exudates, or evidence of obstruction, uvula midline. Mucous membranes moist. Neck: Trachea midline, no thyromegaly or masses palpated, and no cervical lymphadenopathy. Supple, full range of motion without nuchal rigidity, or vertebral point tenderness. No Meningismus. Chest/axilla: Normal chest wall appearance and motion. Nontender with no deformity. No lesions are appreciated. Cardiovascular: Regular rate and rhythm with a normal S1 and S2. No gallops, murmurs, or rubs. Normal PMI, no JVD. No pulse deficits. Respiratory: Lungs have equal breath sounds bilaterally, clear to auscultation and percussion. No rales, rhonchi or wheezes noted. No increased work of breathing, no retractions or nasal flaring. 14:46 Back: No spinal tenderness. No costovertebral tenderness. Full range of motion. Skin: Warm, dry with normal turgor. Normal color with no rashes, no lesions, and no evidence of cellulitis. MS/ Extremity: Pulses equal, no cyanosis. Neurovascular intact. Full, normal range of motion. 14:46 Abdomen/GI: Inspection: abdomen appears normal, obese Bowel sounds: normal, Palpation: soft, nontender, mass, that is nontender, of the just below umbilicus, rebound tenderness, is not appreciated. 14:46 Neuro: Orientation: is normal, Mentation: is normal, Motor: is normal, moves all fours, Sensation: is normal, no obvious gross deficits. Vital Signs: 13:48 Temp 97.9(TE); la1 13:51 BP 100 / 58; Pulse 62; Resp 19; Pulse Ox 99% on R/A; la1 15:15 BP 101 / 57; Pulse 67; Resp 16; Pulse Ox 99% on R/A; la1 16:17 BP 104 / 67; Pulse 63; Resp 16; Pulse Ox 99% on R/A; la1 17:33 BP 110 / 72; Pulse 70; Resp 16; Pulse Ox 99% on R/A; la1 18:10 Temp 97.5(O); la1 18:57 BP 107 / 72; Pulse 68; Resp 16; Pulse Ox 100% on R/A; la1 19:52 BP 140 / 78; Pulse 70; Resp 16; Pulse Ox 100% on R/A; la1 MDM: 13:51 Patient medically screened. pm1 17:10 ED course: Patient has WBC 22 today and reports that she had a WBC of 9 last month with pm1 labs performed monthly for dialysis. Discussed labs with Dr. Wiley and recommended sepsis work up and CT scan of abdomen. Patient admitted in March for sepsis without septic shock due to abdominal abscess with very minimal complaints. Patient was admitted and required 3 weeks of antibiotic therapy. Patient had a recent ultrasound of her abdomen that showed resolution of her abdominal abscess. . 18:49 Data reviewed: vital signs. Data interpreted: Pulse oximetry: on room air is 99 %. pm1 Interpretation: normal. 20:49 Counseling: I had a detailed discussion with the patient and/or guardian regarding: the kb historical points, exam findings, and any diagnostic results supporting the discharge/admit diagnosis, lab results, radiology results, the need to transfer to another facility, continuity of care. ED course: Pt was seen and treated for abscess in same area in March [address] Damon at [place]. Will transfer back to [place] for continuity of care. 05/22 13:58 Order name: Basic Metabolic Panel; Complete Time: 16:50 pm1 05/22 13:58 Order name: CBC with Diff; Complete Time: 16:50 pm1 05/22 14:49 Order name: CBC Smear Scan; Complete Time: 16:50 EDMS 05/22 17:07 Order name: Amylase, Serum; Complete Time: 18:08 pm1 05/22 17:07 Order name: Blood Culture Adult (2) pm1 05/22 17:07 Order name: C-Reactive Protein; Complete Time: 18:08 pm1 05/22 17:07 Order name: Ckmb; Complete Time: 18:08 pm1 05/22 17:07 Order name: CPK; Complete Time: 18:08 pm1 05/22 17:07 Order name: Lactate; Complete Time: 18:08 pm1 05/22 17:07 Order name: LFT's; Complete Time: 18:08 pm1 05/22 17:07 Order name: Lipase; Complete Time: 18:08 pm1 05/22 17:07 Order name: Procalcitonin; Complete Time: 18:24 pm1 05/22 17:07 Order name: Protime (+inr); Complete Time: 18:44 pm1 05/22 17:07 Order name: Ptt, Activated; Complete Time: 18:44 pm1 05/22 17:07 Order name: Sed Rate; Complete Time: 18:08 pm1 05/22 17:07 Order name: Troponin (emerg Dept Use Only); Complete Time: 18:08 pm1 05/22 13:58 Order name: Knee Right 3 View XRAY; Complete Time: 14:41 pm1 05/22 17:07 Order name: Chest Single View XRAY; Complete Time: 19:59 pm1 05/22 17:29 Order name: Abdomen ; Complete Time: 19:45 EDMS 05/22 13:58 Order name: Diet Renal; Complete Time: 13:58 pm1 05/22 13:58 Order name: Diet Renal; Complete Time: 13:58 ss 05/22 13:58 Order name: IV Saline Lock; Complete Time: 14:36 pm1 05/22 13:58 Order name: Labs collected and sent; Complete Time: 14:36 pm1 05/22 17:07 Order name: Accucheck; Complete Time: 17:31 pm1 05/22 17:07 Order name: Cardiac monitoring; Complete Time: 17:31 pm1 05/22 17:07 Order name: EKG - Nurse/Tech; Complete Time: 17:33 pm1 05/22 17:07 Order name: IV Saline Lock - Large Bore; Complete Time: 17:31 pm1 05/22 17:07 Order name: O2 Per Protocol; Complete Time: 17:31 pm1 05/22 17:07 Order name: O2 Sat Monitoring; Complete Time: 17:31 pm1 05/22 18:01 Order name: Labs - recollect needed; Complete Time: 18:18 eb Administered Medications: 18:18 Drug: NS 0.9% 1000 ml Route: IV; Rate: 25 ml/hr; Site: right subclavian; la1 20:55 Follow up: IV Status: Infusion continued upon transfer la1 20:41 Drug: vancoMYCIN 1 grams Route: IVPB; Infused Over: 2 hrs; Site: right subclavian; la1 20:55 Follow up: IV Status: Infusion continued upon transfer la1 20:54 Drug: Zosyn 3.375 grams Route: IVPB; Infused Over: 60 mins; Site: right subclavian; la1 20:55 Follow up: IV Status: Infusion continued upon transfer la1 Point of Care Testing: Blood Glucose: 13:48 Blood Glucose: 178 mg/dL; la1 14:35 Blood Glucose: 174 mg/dL; la1 20:47 Blood Glucose: 147 mg/dL; rg2 Ranges: Critical Glucose Levels:Adult <50 mg/dl or >400 mg/dl <40 mg/dl or >180 mg/dl Disposition: 05/22/18 20:51 Transfer ordered to [facility]. Diagnosis are Abdominal Wall Abscess, Colitis. - Reason for transfer: Higher level of care. - Accepting physician is Meera. - Condition is Stable. - Problem is an ongoing problem. - Symptoms are unchanged. Addendum: 05/26/2018 07:14 Co-signature as Attending Physician, Dio Wiley MD I agree with the assessment and k dr plan of care. Signatures: Dispatcher [employer] [facility] Nena Kc, FIELD SERVICE TECHNICIAN-C FIELD SERVICE TECHNICIAN-Ckb Dio Wiley MD MD [facility] Skinny Laws RN RN la1 Jayme Caldwell, ASHWINI C ARCHITECT pm1 Zahida Reina Corrections: (The following items were deleted from the chart) 05/22 16:52 13:58 Urine Dipstick-Ancillary ordered. pm1 la1 17:29 17:11 Abdomen Pelvis W Con+CT.RAD.BRZ ordered. [facility] EDVA 20:37 17:07 Urine Dipstick-Ancillary ordered. pm1 la1 21:14 20:51 05/22/2018 20:51 Transfer ordered to [facility]. la1 Diagnosis is Abdominal Wall Abscess; Colitis. Reason for transfer: Higher level of care. Accepting physician is Meera. Condition is Stable. Problem is an ongoing problem. Symptoms are unchanged. kb
--- NOTE | 2018-05-22 20:51 | ER ---
Nurse's Notes [facility] Name: Danielle Yan Age: 63 yrs Sex: Female : 1955 Arrival Date: 05/22/2018 Time: 13:45 Bed 5 Private MD: Diagnosis: Abdominal Wall Abscess;Colitis Presentation: 05/22 13:45 Presenting complaint: EMS states: states she was unresponsive this morning, BGL la1 was 34, glucagon and Dextrose administered, pt now alert, oriented x 4. C/O right knee pain'. Transition of care: patient was not received from another setting of care. Onset of symptoms was May 22, 2018. Risk Assessment: Do you want to hurt yourself or someone else? Patient reports no desire to harm self or others. Initial Sepsis Screen: Does the patient meet any 2 criteria? No. Patient's initial sepsis screen is negative. Does the patient have a suspected source of infection? No. Patient's initial sepsis screen is negative. Care prior to arrival: None. 13:45 Method Of Arrival: EMS: [facility] la1 13:45 Acuity: [place] 3 la1 Historical: - Allergies: 13:48 No Known Allergies; la1 - PMHx: 13:48 Diabetes - NIDDM; Gout; Hypertension; Hypothyroidism; PERIPHERAL NEUROPATHY; Renal la1 Disease; Dialysis; - Immunization history:: Adult Immunizations up to date. - Social history:: Smoking status: Patient/guardian denies using tobacco. - Ebola Screening: : No symptoms or risks identified at this time. Screenin:53 Abuse screen: Denies threats or abuse. Nutritional screening: No deficits noted. la1 Tuberculosis screening: No symptoms or risk factors identified. Fall Risk None identified. Assessment: 13:51 General: Appears in no apparent distress. Behavior is calm, cooperative. Pain: la1 Complains of pain in right knee. Neuro: Level of Consciousness is awake, alert, obeys commands, Oriented to person, place, time, situation. Cardiovascular: Capillary refill < 3 seconds Patient's skin is warm and dry. Cardiovascular: Dialysis shunt: in the dorsal aspect of left forearm, dialysis access to right anterior chest wall.. Respiratory: Airway is patent Respiratory effort is even, unlabored, Respiratory pattern is regular, symmetrical, Breath sounds are clear bilaterally. GI: Abdomen is obese. : No signs and/or symptoms were reported regarding the genitourinary system. 14:35 Reassessment: Patient appears in no apparent distress at this time. No changes from la1 previously documented assessment. Patient and/or family updated on plan of care and expected duration. Pain level reassessed. Pt provided renal diet. 14:49 Reassessment: ASHWINI Delacruz notified of critical lab value WBC 22.8. ss 15:15 Reassessment: Patient appears in no apparent distress at this time. No changes from la1 previously documented assessment. Patient and/or family updated on plan of care and expected duration. Pain level reassessed. 16:40 Reassessment: Patient appears in no apparent distress at this time. No changes from la1 previously documented assessment. Patient and/or family updated on plan of care and expected duration. Pain level reassessed. 17:30 Reassessment: Patient appears in no apparent distress at this time. No changes from la1 previously documented assessment. Patient and/or family updated on plan of care and expected duration. Pain level reassessed. 17:57 GI: Abdomen is obese, area of redness noted below the umbilicus, pt states similar to la1 last time when she had an abdominal abscess Bowel sounds present X 4 quads. Abd is soft and non tender X 4 quads. Patient currently denies diarrhea, nausea, vomiting. 18:57 Reassessment: Patient appears in no apparent distress at this time. No changes from la1 previously documented assessment. Patient and/or family updated on plan of care and expected duration. Pain level reassessed. 20:31 Reassessment: Patient appears in no apparent distress at this time. No changes from la1 previously documented assessment. Patient and/or family updated on plan of care and expected duration. Pain level reassessed. Pt had BM, cleaned, pt resting comfortably awaiting dispo. Vital Signs: 13:48 Temp 97.9(TE); la1 13:51 BP 100 / 58; Pulse 62; Resp 19; Pulse Ox 99% on R/A; la1 15:15 BP 101 / 57; Pulse 67; Resp 16; Pulse Ox 99% on R/A; la1 16:17 BP 104 / 67; Pulse 63; Resp 16; Pulse Ox 99% on R/A; la1 17:33 BP 110 / 72; Pulse 70; Resp 16; Pulse Ox 99% on R/A; la1 18:10 Temp 97.5(O); la1 18:57 BP 107 / 72; Pulse 68; Resp 16; Pulse Ox 100% on R/A; la1 19:52 BP 140 / 78; Pulse 70; Resp 16; Pulse Ox 100% on R/A; la1 ED Course: 13:45 Patient arrived in ED. la1 13:46 Triage completed. la1 13:47 Arm band placed on left wrist. EKG completed in triage. Results shown to MD. la1 13:50 Jayme Caldwell NP is PHCP. pm1 13:50 Dio Wiley MD is Attending Physician. pm1 13:51 Skinny Laws RN is Primary Nurse. la1 13:53 Bed in low position. Call light in reach. Side rails up X 1. equipment monitor phototypesetting on. Pulse la1 ox on. NIBP on. 14:22 X-ray completed. Portable x-ray completed in exam room. Patient tolerated procedure jb2 well. 14:26 Knee Right 3 View XRAY In Process Unspecified. EDMS 14:36 No provider procedures requiring assistance completed. Accessed double lumen central la1 line right anterior chest wall IV. 17:32 X-ray completed. Portable x-ray completed in exam room. Patient tolerated procedure jb2 well. 17:35 Chest Single View XRAY In Process Unspecified. EDMS 17:46 EKG done, by ED staff, reviewed by Jayme Caldwell NP. jb1 19:02 PHCP role handed off by Jayme Caldwell NP kb 19:03 Nena Kc FNP-C is PHCP. kb 19:05 CT completed. Patient moved to CT via stretcher. Patient moved back from CT. cw1 19:08 Abdomen In Process Unspecified. EDMS 21:13 Patient transferred, IV remains in place. la1 Administered Medications: 18:18 Drug: NS 0.9% 1000 ml Route: IV; Rate: 25 ml/hr; Site: right subclavian; la1 20:55 Follow up: IV Status: Infusion continued upon transfer la1 20:41 Drug: vancoMYCIN 1 grams Route: IVPB; Infused Over: 2 hrs; Site: right subclavian; la1 20:55 Follow up: IV Status: Infusion continued upon transfer la1 20:54 Drug: Zosyn 3.375 grams Route: IVPB; Infused Over: 60 mins; Site: right subclavian; la1 20:55 Follow up: IV Status: Infusion continued upon transfer la1 Point of Care Testing: Blood Glucose: 13:48 Blood Glucose: 178 mg/dL; la1 14:35 Blood Glucose: 174 mg/dL; la1 20:47 Blood Glucose: 147 mg/dL; rg2 Ranges: Outcome: 20:51 ER care complete, transfer ordered by MD. gonsalves 21:13 Transferred by ground EMS to [facility], Transfer form completed. la1 21:13 Condition: stable 21:13 Instructed on the need for transfer. 21:14 Patient left the ED. la1 Signatures: Dispatcher [employer] EDMS Ezequiel Najera jb1 Nena Kc, PYTHON DEVELOPER-C PYTHON DEVELOPER-CkBlanche Redmond rg2 Jaxson Clark jb2 Mamie Tripathi RN RN ss Woodley, Crystal cw1 Skinny Laws RN RN la1 Jayme Caldwell, ASHWINI HAND III CUTTER pm1
[2018-05-22 21:25] VITALS: TEMP 97.5
[2018-05-22 21:26] VITALS: O2SAT 100
[2018-05-22 21:27] VITALS: BP 140/78
--- NOTE | 2018-05-24 07:10 | EKG ---
Test Date: 2018-05-22 Test Time: 17:41:20 Booth Cashier: ANNA MEASUREMENT RESULTS: Intervals: Rate: 65 FL: 182 QRSD: 86 QT: 412 QTc: 428 [place]: P: 24 FL: 182 QRS: 34 T: 49 INTERPRETIVE STATEMENTS: Normal sinus rhythm Normal ECG Compared to ECG 03/21/2018 20:06:13 Sinus tachycardia no longer present Atrial premature complex(es) no longer present Right ventricular hypertrophy no longer present Myocardial infarct finding no longer present Electronically Signed On 05-24-18 07:09:34 CDT by Osman Gaviria
== END 2018-05-22 21:14 | disposition short-term general hospital (02) ==
LOC: ER 13:43
DX: K52.9 Noninfective gastroenteritis and colitis, unspecified (principal); I10 Essential (primary) hypertension; N28.9 Disorder of kidney and ureter, unspecified; E11.9 Type 2 diabetes mellitus without complications; Z99.2 Dependence on renal dialysis
CPT/HCPCS: 36415; 71045; 73562; 74176; 80048; 80076; 82150; 82550; 82553; 82962 ×3; 83605; 83690; 84145; 84484; 85025; 85610; 85652; 85730; 86140; 87040 ×2; 93005; 96361; 96374; 96375; 99285; J2543; J3370; J7030

== ENCOUNTER 2019-09-30 16:44 | Emergency (ER) | payer OTHER ==
--- OUTSIDE RECORDS SUMMARY | 2019-09-30 16:48 | XMS REPORT | Summary of Care ---
:1955 Author Name ADELSO Thompson, LIANET Address MD Physicians Unavailable , Care Team Providers Name Role Phone RICARDO Thompson, DORINDA Unavailable Unavailable JANELL Thompson, LIVAN Unavailable Unavailable LOLITA Thompson, RIZWAN Unavailable Unavailable NAVIN Thompson, RADHA Unavailable Unavailable ADELSO Thompson, LIANET Unavailable Unavailable EMELI Thompson, MARLYS Unavailable Unavailable JANELL GREENE, LIVAN Unavailable Unavailable TRI GREENE MD, GRABIEL Unavailable Unavailable CALDERON GREENE, AMY Unavailable Unavailable JOANN GREENE MD, MARYBETH Jansen Unavailable Unavailable Mary GREENE, Lanre Unavailable Unavailable MAXIMO GREENE, SIXTO Jansen Unavailable Unavailable Rudolph GREENE, Buster Unavailable Unavailable RICARDO GREENE, DORINDA Royal Unavailable Unavailable Belen GREENE, Dio Unavailable Unavailable FARHAT GREENE, KRYSTAL K Unavailable Unavailable LOLITA GREENE MD, RIZWAN Unavailable Unavailable GINNY GREENE, JHONATAN Unavailable Unavailable TONY GREENE, PEGGY Unavailable Unavailable ELI GREENE, MCKENZIE ARTIS Unavailable Unavailable ADELSO GREENE, LIANET Ryan Unavailable Unavailable BRITTANY GREENE, CHERISE YODER Unavailable Unavailable Emeli GREENE, Marlys Unavailable Unavailable Unavailable Unavailable Unavailable Functional Status Name Dates Details Functional status health issues are not documented Status: Name Dates Details Cognitive status health issues are not documented Status: Problems Name Dates Details Acute deep vein thrombosis of lower extremity (453.40, I82.409) Status: Active Joint pain of lower extremity (719.48, M25.50) Status: Active Colovesical fistula (596.1, N32.1) Status: Active Edema (782.3, R60.9) Status: Active Lumbar radiculopathy (724.4, M54.16) Status: Active Staph infection (041.10, B95.8) Status: Active Parathyroid adenoma (227.1, D35.1) Status: Active Hyperparathyroidism (252.00, E21.3) Status: Active Hypercalcemia (275.42, E83.52) Status: Active Pain in joint involving upper arm (719.42, M25.529) Status: Active Vitamin D insufficiency (268.9, E55.9) Status: Active Bilateral hand pain (729.5, M79.641) Status: Active Gout (274.9, M10.9) Status: Active Insomnia (780.52, G47.00) Status: Active Hypercoagulable state (289.81, D68.59) Status: Active Renal dialysis device, implant, or graft complication (996.73, T82.9XXA) Status: Active Thrombophlebitis (451.9, I80.9) Status: Active Cellulitis of left upper extremity (682.3, L03.114) Status: Active Complication of device or graft (996.70, T85.9XXA) Status: Active 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, F33.0) Status: Active Type 2 diabetes mellitus (250.00, E11.9) Status: Active Hypotension (458.9, I95.9) Status: Active Need for shingles vaccine (V04.89, Z23) Status: Active Abdominal wall abscess (682.2, L02.211) Status: Active Endocarditis (424.90, I38) Status: Active Postop check (V67.00, Z09) Status: Active Aftercare following surgery (V58.89, Z48.89) Status: Active Open abdominal wall wound (879.2, S31.109A) Status: Active End stage renal disease (585.6, N18.6) Status: Active Status post angioplasty (V45.89, Z98.62) Status: Active Dietary iron deficiency anemia (280.1, D50.8) Status: Active Diabetes mellitus type 2, uncontrolled (250.02, E11.65) Status: Active Pre-op exam (V72.84, Z01.818) Status: Active Preoperative clearance (V72.84, Z01.818) Status: Active Factor V Leiden mutation (289.81, D68.51) Status: Active Anemia (285.9, D64.9) Status: Active Hyperlipidemia (272.4, E78.5) Status: Active Abdominal abscess Status: Active Colonic fistula (569.81, K63.2) Status: Active Neuropathy involving both lower extremities (356.9, G57.93) Status: Active Effective bowel preparation for surgery Status: Active Anxiety (300.00, F41.9) Status: Active Depressive disorder (311, F32.9) Status: Active Right ankle injury (959.7, S99.911A) Status: Active Injury of toe on right foot, initial encounter (959.7, S99.921A) Status: Active Injury of left ankle, initial encounter (959.7, S99.912A) Status: Active Hypothyroidism, postsurgical (244.0, E89.0) Status: Active Medications Name Dates Details Levothyroxine Sodium 125 MCG Oral Tablet TAKE 1 TABLET DAILY. CALL CLINIC, NEED VISIT WITH NEW PCP Quantity: 1 Refills: 1 MARLYS GODDARD M.D. Start : 28-Feb-2015 Active 90 Tablet Bottle Colchicine-Probenecid 0.5-500 MG Oral Tablet TAKE 1 TABLET DAILY DIRECTED. Refills: 0 Active Eliquis 5 MG Oral Tablet TAKE 1 TABLET BY MOUTH TWICE A DAY (NEED OFFICE VISIT) Quantity: 30 Refills: 0 MARLYS GODDARD M.D. Start : 17-Jun-2018 Active clonazePAM 0.5 MG Oral Tablet take 0.5 mg qd and 1 mg qhs Quantity: 90 Refills: 3 RIZWAN MCHUGH M.D. Start : 15-Jul-2018 Active Gabapentin 300 MG Oral Capsule TAKE 1 CAPSULE AT BEDTIME. Quantity: 30 Refills: 3 RADHA HOLDEN M.D. Start : 14-Oct-2018 Active Escitalopram Oxalate 20 MG Oral Tablet TAKE 1 TABLET DAILY. Quantity: 90 Refills: 3 RIZWAN MCHUGH M.D. Start : 06-Jan-2019 Active Calcium Acetate (Phos Binder) 667 MG Oral Capsule TAKE 2 CAPSULES 3 TIMES DAILY WITH MEALS. Refills: 0 LIVAN MACIEL M.D. Start : 23-Feb-2019 Active Escitalopram Oxalate 20 MG Oral Tablet TAKE 1 TABLET DAILY. Quantity: 90 Refills: 3 RIZWAN MCHUGH M.D. Start : 01-May-2019 Active clonazePAM 0.5 MG Oral Tablet Take 0.5 mg in the morning and 1 mg at bedtime Quantity: 90 Refills: 4 RIZWAN MCHUGH M.D. Start : 01-May-2019 Active Gabapentin 300 MG Oral Capsule TAKE 1 CAPSULE TWICE DAILY. Quantity: 180 Refills: 3 RIZWAN MCHUGH M.D. Start : 01-May-2019 Active Allopurinol 100 MG Oral Tablet Refills: 0 Active PhosLo CAPS Refills: 0 Active Midodrine HCl - 2.5 MG Oral Tablet Refills: 0 Active Erythromycin Base 500 MG Oral Tablet TAKE 2 TABLET Other 1gm (2tabs) at 1100, 1300, 2200 day before surgery Quantity: 6 Refills: 0 ANDRASSY M.James, DORINDA Start : 25-Jul-2019 Active Neomycin Sulfate 500 MG Oral Tablet TAKE 2 TABLET Other Take 1gm (2 Tabs) at 1100, 1300, 2200 day before surgery Quantity: 6 Refills: 0 ANDRASSY Donna, DORINDA Start : 25-Jul-2019 Active clonazePAM 1 MG Oral Tablet TAKE 1 TABLET EVERY 12 HOURS NEEDED. Quantity: 60 Refills: 3 RIZWAN MCHUGH M.D. Start : 11-Aug-2019 Active Allergies and Adverse Reactions Name Dates Details No Known Drug Allergies (Allergy) Status: Active Past Medical History Name Dates Details History of chronic kidney disease (V13.09, Z87.448) Status: Resolved History of Diverticulitis (562.11, K57.92) Status: Resolved History of Factor 5 Leiden mutation, heterozygous (289.81, D68.51) Status: Resolved History of goiter (V12.29, Z86.39) Status: Resolved History of Celeste thyroiditis (V12.29, Z86.39) Status: Resolved History of hypertension (V12.59, Z86.79) Status: Resolved History of urinary tract infection (V13.02, Z87.440) Status: Resolved History of urinary tract infection (V13.02, Z87.440) Status: Resolved Procedures Procedure Dates Details [QL] TSH, 3RD GENERATION Date: 28-Sep-2019 XRAY Ankle 3 views Bilateral [id number] Date: 28-Sep-2019 XRAY Foot 3 views Bilateral [id number] Date: 28-Sep-2019 XRAY Toe [id number] Date: 28-Sep-2019 History of Thyroid Surgery Substernal Thyroidectomy Completed History of Thyroid Surgery Luiz-Thyroidectomy Left Lobe Completed History of Colostomy Completed History of Cholecystectomy Completed History of Hernia Repair Completed History of Laminectomy Lumbar Completed History of Arteriovenous fistula creation procedure Completed Immunization Name Dates Details Pneumococcal polysaccharide vaccine, 23 valent on: Nov-2017 Hepatitis B, adult on: Nov-2017 Hepatitis B, adult on: Jan-2018 Fluzone Quadrivalent 0.5 ML Intramuscular Suspension on: May-2018 Family History Name Dates Details Family history of suicide (V17.0, Z81.8) Comments: Other Status: Active Family history of Substance abuse (305.90, F19.10) Comments: Other Status: Active Name Dates Details Family history of thyroid disease (V18.19, Z83.49) Status: Active Name Dates Details Family history of chronic kidney disease (V18.69, Z84.1) Status: Active Name Dates Details Family history of chronic kidney disease (V18.69, Z84.1) Status: Active Family history of type 2 diabetes mellitus (V18.0, Z83.3) Status: Active Name Dates Details Family history of Factor 5 Leiden mutation, heterozygous (289.81, D68.51) Status: Active Social History Name Dates Details - Status: Name Dates Details Never smoker Never smoker Vital Signs Date Test Result Details :57 Physical Findings 0 Status: Comments: Alcohol Screen - How many times in the past yr have you had 5 (for M) or 4 (for F) or 4 (for all > 65yrs) or more drinks in a day? [id number] BP Systolic 95 mm[Hg] Status: Comments: Location: RUE; Position: Sitting BP Diastolic 67 mm[Hg] Status: Comments: Location: RUE; Position: Sitting Height 60 in Status: Weight 213.0625 lb Status: Body Mass Index Calculated 41.61 kg/m2 Status: Body Surface Area Calculated 1.92 m2 Status: Temperature 97.4 f Status: Comments: Method: Oral Heart Rate 69 /min Status: Comments: Location: R Brachial Artery; Quality: Normal Respiration Rate 16 /min Status: Comments: Quality: Normal Results Date Description Value Details Results not documented Plan of Care Name Dates Details Planned Observations Planned Goals not documented Planned Encounters Appointment; DORINDA SILVA M.D. On: 03-Oct-2019 8:00 Appointment; PEGGY JIMENEZ M.D. On: 10-Oct-2019 11:20 Appointment; SIXTO MARSH M.D. On: 10-Oct-2019 14:00 Appointment; AMY MANCERA M.D. On: 09-Nov-2019 15:30 Appointment; RIZWAN MCHUGH M.D. On: 10-Nov-2019 15:30 Appointment; KRYSTAL DOUGHERTY M.D. On: 15-Nov-2019 7:30 Interventions Provided Labs/Procedures/Imaging[[facility]] TSH, 3RD GENERATION; To Be Done: 28 Sep 2019XRAY Ankle 3 views Bilateral [id number]; To Be Done: 28 Sep 2019XRAY Foot 3 views Bilateral [id number]; To Be Done: 28 Sep 2019XRAY Toe [id number]; To Be Done: 28 Sep 2019PlanX-rays of both ankles and feet obtained with x-ray of right great toe. All to evaluate for underlying evidence of fracture.If x-rays negative except for soft tissue swelling will refer for physical therapy and consider placement of Aircast.She has plenty of her levothyroxine. TSH ordered. Usual dose adjustment based on TSH.RTC 6-8 weeks--happy to see FM resident for improved availability. Former patient of Dr. Maciel. Instructions Name Dates Details Instructions not documented Encounters Appointment; DIO LOCKETT M.D. On: 14-Oct-2017 15:00 Encounter Diagnosis: Problem not documented Appointment; MARYBETH DAVID M.D. On: 06-Dec-2017 10:45 Encounter Diagnosis: Problem not documented Appointment; VASCULAR, BELLAIRE On: 09-Dec-2017 12:00 Encounter Diagnosis: Problem not documented Appointment; MARYBETH DAVID M.D. On: 27-Dec-2017 9:00 Encounter Diagnosis: Problem not documented Appointment; VASCULAR, BELLAIRE On: 19-Jan-2018 9:00 Encounter Diagnosis: Problem not documented Appointment; MARYBETH DAVID M.D. On: 19-Jan-2018 10:30 Encounter Diagnosis: Problem not documented Appointment; Ranjan Glez M.D. On: 08-Feb-2018 13:45 Encounter Diagnosis: Problem not documented Appointment; ADEEL DAVIDSON NP On: 15-Feb-2018 12:00 Encounter Diagnosis: Problem not documented Appointment; Ranjan Glez M.D. On: 08-Mar-2018 10:15 Encounter Diagnosis: Problem not documented Appointment; MARYBETH DAVID M.D. On: 17-Mar-2018 10:30 Encounter Diagnosis: Problem not documented Appointment; KRYSTAL DOUGHERTY M.D. On: 24-Mar-2018 17:00 Encounter Diagnosis: Problem not documented Appointment; KRYSTAL DOUGHERTY M.D. On: 13-Apr-2018 10:30 Encounter Diagnosis: Problem not documented Appointment; RADHA HOLDEN M.D. On: 22-Apr-2018 9:15 Encounter Diagnosis: Problem not documented Appointment; DAVI PEERZ M.D. On: 26-Apr-2018 11:00 Encounter Diagnosis: Problem not documented Appointment; Ranjan Glez M.D. On: 03-May-2018 11:30 Encounter Diagnosis: Problem not documented Appointment; KRYSTAL DOUGHERTY M.D. On: 11-May-2018 10:30 Encounter Diagnosis: Problem not documented Appointment; Ranjan Glez M.D. On: 17-May-2018 13:00 Encounter Diagnosis: Problem not documented Appointment; GENERAL, SERVICE On: 16-Jun-2018 13:00 Encounter Diagnosis: Problem not documented Appointment; [facility] On: 17-Jun-2018 10:00 Encounter Diagnosis: Problem not documented Appointment; LIVAN MACIEL M.D. On: 28-Jun-2018 13:00 Encounter Diagnosis: Problem not documented Appointment; GENERAL, SERVICE On: 30-Jun-2018 14:00 Encounter Diagnosis: Problem not documented Appointment; PEGGY JIMENEZ M.D. On: 05-Jul-2018 10:40 Encounter Diagnosis: Problem not documented Appointment; RADHA HOLDEN M.D. On: 15-Jul-2018 9:45 Encounter Diagnosis: Problem not documented Appointment; SIXTO MARSH M.D. On: 19-Jul-2018 10:30 Encounter Diagnosis: Problem not documented Appointment; LIVAN MACIEL M.D. On: 26-Jul-2018 13:00 Encounter Diagnosis: Problem not documented Appointment; SIXTO MARSH M.D. On: 09-Aug-2018 11:15 Encounter Diagnosis: Problem not documented Appointment; DORINDA SILVA M.D. On: 15-Aug-2018 9:30 Encounter Diagnosis: Problem not documented Appointment; LIVAN MACIEL M.D. On: 25-Aug-2018 13:00 Encounter Diagnosis: Problem not documented Appointment; RADHA HOLDEN M.D. On: 14-Oct-2018 9:15 Encounter Diagnosis: Problem not documented Appointment; DORINDA SILVA M.D. On: 17-Oct-2018 10:00 Encounter Diagnosis: Problem not documented Appointment; VASCULAR, [facility] On: 27-Oct-2018 12:00 Encounter Diagnosis: Problem not documented Appointment; SIXTO MARSH M.D. On: 27-Oct-2018 14:00 Encounter Diagnosis: Problem not documented Appointment; ROSELYN ANN M.D. On: 11-Nov-2018 12:00 Encounter Diagnosis: Problem not documented Appointment; VASCULAR, SURGERY On: 22-Nov-2018 13:30 Encounter Diagnosis: Problem not documented Appointment; VASCULAR, SURGERY On: 28-Nov-2018 11:45 Encounter Diagnosis: Problem not documented Appointment; VASCULAR, [facility] On: 28-Dec-2018 8:30 Encounter Diagnosis: Problem not documented Appointment; KRYSTAL DOUGHERTY M.D. On: 28-Dec-2018 14:30 Encounter Diagnosis: Problem not documented Appointment; JHONATAN GROSS M.D. On: 28-Dec-2018 15:00 Encounter Diagnosis: Problem not documented Appointment; PEGGY JIMENEZ M.D. On: 03-Jan-2019 10:20 Encounter Diagnosis: Problem not documented Appointment; JHONATAN GROSS M.D. On: 05-Jan-2019 13:45 Encounter Diagnosis: Problem not documented Appointment; RIZWAN MCHUGH M.D. On: 06-Jan-2019 15:00 Encounter Diagnosis: Problem not documented Appointment; VASCULAR, [facility] On: 16-Jan-2019 9:30 Encounter Diagnosis: Problem not documented Appointment; JHONATAN GROSS M.D. On: 16-Jan-2019 13:45 Encounter Diagnosis: Problem not documented Appointment; SIXTO MARSH M.D. On: 14-Feb-2019 13:30 Encounter Diagnosis: Problem not documented Appointment; LIVAN MACIEL M.D. On: 23-Feb-2019 13:45 Encounter Diagnosis: Problem not documented Appointment; VASCULAR, [facility] On: 21-Mar-2019 9:30 Encounter Diagnosis: Problem not documented Appointment; SIXTO MARSH M.D. On: 21-Mar-2019 11:15 Encounter Diagnosis: Problem not documented Appointment; MARLYS GODDARD M.D. On: 27-Mar-2019 14:45 Encounter Diagnosis: Problem not documented Appointment; DORINDA SILVA M.D. On: 03-Apr-2019 13:00 Encounter Diagnosis: Problem not documented Appointment; DORINDA SILVA M.D. On: 24-Apr-2019 14:30 Encounter Diagnosis: Problem not documented Appointment; KRYSTAL DOUGHERTY M.D. On: 25-Apr-2019 14:30 Encounter Diagnosis: Problem not documented Appointment; RIZWAN MCHUGH M.D. On: 01-May-2019 15:00 Encounter Diagnosis: Problem not documented Appointment; GRABIEL BARTLETT M.D. On: 11-May-2019 14:45 Encounter Diagnosis: Problem not documented Appointment; TEA STEVEN On: 11-May-2019 16:00 Encounter Diagnosis: Problem not documented Appointment; KRYSTAL DOUGHERTY M.D. On: 30-May-2019 12:00 Encounter Diagnosis: Problem not documented Appointment; KRYSTAL DOUGHERTY M.D. On: 12-Jun-2019 14:45 Encounter Diagnosis: Problem not documented Appointment; SIXTO MARSH M.D. On: 13-Jun-2019 10:00 Encounter Diagnosis: Problem not documented Appointment; DORINDA SILVA M.D. On: 17-Jul-2019 14:00 Encounter Diagnosis: Problem not documented Appointment; VASCULAR, [facility] On: 21-Jul-2019 10:00 Encounter Diagnosis: Problem not documented Appointment; SIXTO MARSH M.D. On: 21-Jul-2019 12:00 Encounter Diagnosis: Problem not documented Appointment; FANTASMA MANZANO M.D. On: 25-Jul-2019 11:00 Encounter Diagnosis: Problem not documented Appointment; RIZWAN MCHUGH M.D. On: 31-Jul-2019 15:00 Encounter Diagnosis: Problem not documented Appointment; GRABIEL BARTLETT M.D. On: 03-Aug-2019 15:00 Encounter Diagnosis: Problem not documented Appointment; RIZWAN MCHUGH M.D. On: 11-Aug-2019 16:00 Encounter Diagnosis: Problem not documented Appointment; SIXOT MARSH M.D. On: 15-Aug-2019 11:15 Encounter Diagnosis: Problem not documented Appointment; LIANET DARDEN M.D. On: 28-Sep-2019 15:30 Encounter Diagnosis: Problem not documented
--- OUTSIDE RECORDS SUMMARY | 2019-09-30 16:48 | XMS REPORT ---
:1955 Author Organization [employer] Care Team Providers Name Role Phone Garret Stearns Provider Role Unavailable Allergies No Known Allergies Problems No Known Problems Medications No Known Medications Results No Known Results Summary Purpose [employer] Submission
--- OUTSIDE RECORDS SUMMARY | 2019-09-30 16:48 | XMS REPORT ---
:1955 Author Organization [employer] Care Team Providers Name Role Phone Garret Stearns Provider Role Unavailable Allergies No Known Allergies Problems No Known Problems Medications Medication Code Code Instructions Start End Date Status Dosage System Date Tramadol HCl [facility] [id number] 50 MG Orally Jun 28, Active 1 tablet every 6 hrs 2017 as needed Results No Known Results Summary Purpose eClinicalWorks Submission
--- OUTSIDE RECORDS SUMMARY | 2019-09-30 16:48 | XMS REPORT ---
:1955 Author Organization [facility] Address [address] [place] [address] Care Team Providers Name Role Phone Unavailable Unavailable Unavailable Payers Payer Name Policy Type Policy Number Effective Date Expiration Date Problems This patient has no known problems. Allergies, Adverse Reactions, Alerts Allergy Allergy Status Severity Reaction(s) Onset Inactive Treating Comments Name Type Date Date Clinician No Known DA Active U 2019-04 Allergies 00:00:0 0 Medications This patient has no known medications. Encounters Start End Encounter Admission Attending Care Care Encounter Date/Time Date/Time Type Type Clinicians Facility Department ID 2019-09-19 Inpatient [facility] [id number] 09:38:59 2018-12-20 Inpatient E [facility] [id number] 05:54:00 2019-07-26 2019-07-24 Inpatient U [facility] [id number] 11:35:00 12:26:00 2019-05-30 2019-05-30 Outpatient FB FB [id number] 10:24:00 10:24:00 2019-01-25 2019-01-25 Outpatient [facility] [id number] 05:46:00 05:46:00 2019-01-02 2019-01-02 Outpatient [facility] [id number] 06:15:00 06:15:00 2018-12-28 2018-12-28 Outpatient [facility] [id number] 14:09:00 14:09:00 Results Test Description Test Time Test Comments Text Results Atomic Results Result Comments COMPREHENSIVE METABOLIC PANEL 2019-04-27 08:10:00 Test Item Value Reference Range Comments SODIUM (test code=NA) 138 MMOL/L 136-143 POTASSIUM (test code=K) 4.8 MMOL/L 3.5-5.1 CHLORIDE (test code=CL) 93 MMOL/L 98-107 CARBON DIOXIDE (test code=CO2) 32 mmol/L 24-31 GLUCOSE (test code=GLU) 147 mg/dL 70-104 BLOOD UREA NITROGEN (test 43.8 MG/DL 7.0-21.0 code=BUN) GLOMERULAR FILTRATION RATE (test 7 >60 The estimated glomerular code=GFR) filtration rate is computed usingpatient race, age (>18), sex, and serum creatinine. If anyof the needed data elements are missing the Laboratory cannot compute an estimation of the glomerular filtration rate. CREATININE (test code=CREAT) 6.7 mg/dL 0.8-1.5 TOTAL PROTEIN (test code=PROT) 6.6 g/dL 6.3-8.3 ALBUMIN (test code=ALB) 3.9 G/DL 3.5-5.0 CALCIUM (test code=CA) 10.2 mg/dL 8.8-10.2 BILIRUBIN TOTAL (test code=BILT) 0.3 mg/dL 0.2-1.0 SGOT/AST (test code=AST) 7 IU/L 10-34 SGPT/ALT (test code=ALT) 6 U/L 10-36 ALKALINE PHOSPHATASE (test 101 U/L 32-104 code=ALKP) PROTHROMBIN [id number] 08:01:00 Test Item Value Reference Range Comments PROTHROMBIN TIME PATIENT 13.9 SECONDS 10.3-12.9 (test code=PTP) INTERNATIONAL NORMAL 1.19 INR UNIT 0.9-1.11 The INR is useful only for RATIO (test code=INR) monitoring anticoagulant therapy.It may be unreliable in the initial phase of antigoagulationand in unstable patients. Indication for Anticoagulation Recommended INR 1. Prevention of venous thomboembolism 2.0-3.0in high-risk patients; treatment of venousthrombosis and pulmonary embolism aftera course of heparin; prevention of systemicembolism in a variety of conditions, including atrial fibrillation and prothetic tissue heart valves, 2. Prosthetic mechanical heart valves; 2.5-3.5recurrent systemic embolism. THROMBOPLASTIN TIME [id number] 08:01:00 Test Item Value Reference Range Comments THROMBOPLASTIN TIME PARTIAL 32.1 SECONDS 26.0-35.9 INTERPRETATIVE (test code=PTT) DATA:Therapeutic range: Unfractionated heparin:47 - 71 seconds Argatroban:1.5 to 3 times the baseline PTT COMPREHENSIVE METABOLIC [id number] 07:55:00 Test Item Value Reference Range Comments SODIUM (test code=NA) MMOL/L 136-143 POTASSIUM (test code=K) MMOL/L 3.5-5.1 CHLORIDE (test code=CL) MMOL/L 98-107 CARBON DIOXIDE (test 32 mmol/L 24-31 code=CO2) GLUCOSE (test code=GLU) 147 mg/dL 70-104 BLOOD UREA NITROGEN (test 43.8 MG/DL 7.0-21.0 code=BUN) GLOMERULAR FILTRATION RATE 7 >60 The estimated glomerular (test code=GFR) filtration rate is computed usingpatient race, age (>18), sex, and serum creatinine. If anyof the needed data elements are missing the Laboratory cannot compute an estimation of the glomerular filtration rate. CREATININE (test code=CREAT) 6.7 mg/dL 0.8-1.5 TOTAL PROTEIN (test 6.6 g/dL 6.3-8.3 code=PROT) ALBUMIN (test code=ALB) 3.9 G/DL 3.5-5.0 CALCIUM (test code=CA) 10.2 mg/dL 8.8-10.2 BILIRUBIN TOTAL (test 0.3 mg/dL 0.2-1.0 code=BILT) SGOT/AST (test code=AST) 7 IU/L 10-34 SGPT/ALT (test code=ALT) 6 U/L 10-36 ALKALINE PHOSPHATASE (test 101 U/L 32-104 code=ALKP) HGBA1C - GLYCOSYLATED [id number] 07:52:00 Test Item Value Reference Range Comments GLYCOSYLATED HEMOGLOBIN (HA1C) 6.1 % 0.0-5.6 INTERPRETATIVE DATA:HGBA1C (test code=GLYHGB) levels above the established reference range are anindication of hyperglycemia during the preceeding 2 - 3months orlonger. HBA1C levels may reach 20% or higher in poorlycontrolled diabetes. Therapeutic action is suggested atlevels above 8%.Diabetic patients with HBA1C levels below 7% meet the goalof the [place] [employer]. Normal: <5.7Pre-Diabetes: 5.7 6.4Diabetic: >6.5Therapeutic goal for glycemic control: <7.0 CBC W/AUTO [id number] 07:45:00 Test Item Value Reference Range Comments WHITE BLOOD CELL (test code=WBC) 10.5 x10 3/uL 4.8-10.8 RED BLOOD CELL (test code=RBC) 4.23 x10 6/uL 4.20-5.40 HEMOGLOBIN (test code=HGB) 12.5 g/dL 14.5-20 HEMATOCRIT (test code=HCT) 40.7 % 37.0-47.0 MEAN CELL VOLUME (test code=MCV) 96.2 fL 81.0-99.0 MEAN CELL HGB (test code=MCH) 29.6 pg 27-31 MEAN CELL HGB CONCENTRATION (test code=MCHC) 30.7 G/DL 33-36.5 RED CELL DISTRIBUTION WIDTH (test code=RDW) 14.9 % 12.9-16.9 PLATELET COUNT (test code=PLT) 206 150-440 MEAN PLATELET VOLUME (test code=MPV) 10.7 fL 8.9-12.4 NEUTROPHIL % (test code=NT%) 63.5 % 42.2-75.2 LYMPHOCYTE % (test code=LY%) 23.2 % 20.5-51.1 MONOCYTE % (test code=MO%) 9.4 % 1.7-9.3 EOSINOPHIL % (test code=EO%) 2.6 % 0.0-7.0 BASOPHIL % (test code=BA%) 0.7 % 0-2.5 NEUTROPHIL # (test code=NT#) 6.69 x10 3/uL 1.80-7.70 LYMPHOCYTE # (test code=LY#) 2.44 x10 3/uL 1.00-4.80 MONOCYTE # (test code=MO#) 0.99 x10 3/uL 0.00-0.80 EOSINOPHIL # (test code=EO#) 0.27 x10 3/uL 0.00-0.45 BASOPHIL # (test code=BA#) 0.07 x10 3/uL 0.0-0.20
--- OUTSIDE RECORDS SUMMARY | 2019-09-30 16:48 | XMS REPORT ---
:1955 Author Organization eClinicalWorks Care Team Providers Name Role Phone Garret Stearns Provider Role Unavailable Allergies, Adverse Reactions, Alerts Substance Reaction Event Type N.K.D.A. Info Not Available Non Drug Allergy Problems Problem Type Condition Code Onset Dates Condition Status Assessment Pain in joint of right knee M25.561 Active Assessment Tear of medial meniscus of right S83.241A Active knee, current, unspecified tear type, initial encounter Assessment Sprain of right knee, unspecified S83.91XA Active ligament, initial encounter Medications Medication Code Code Instructions Start End Status Dosage System Date Date Levofloxacin [facility] 55244474468 500 MG Oral Active not defined Gabapentin [facility] 06771644114 100 MG Oral Active not defined Clonazepam [facility] 36444762256 0.5 MG Oral Active (Schedule IV Drug) Metolazone [facility] 14808259406 5 MG Oral Active not defined Furosemide [facility] 97479968863 80 MG Oral Active not defined Allopurinol [facility] 28864851634 100 MG Oral Active not defined Vancomycin HCl [facility] 64774318486 1000 MG Active not Intravenous defined Colchicine [facility] 18057604410 0.6 MG Orally Active 1 tablet Once a day Escitalopram [facility] 28003223684 20 MG Oral Active not Oxalate defined Eliquis [facility] 36779894966 5 MG Oral Active not defined Tramadol HCl [facility] 79138743803 50 MG Oral Active (Schedule IV Drug) Results No Known Results Summary Purpose eClinicalWorks Submission
[2019-09-30] MEDS ORDERED: ONDANSETRON 4 MG/2 ML VIAL ONE (17:24)
[2019-09-30] MEDS ORDERED: MORPHINE 4 MG/ML SYR ONE (17:25)
[2019-09-30] MEDS ORDERED: ONDANSETRON 4 MG (ODT) TAB ONE (18:05)
--- NOTE | 2019-09-30 19:22 | RAD REPORT ---
EXAM DESCRIPTION: RAD - Hip Left 2 View - 09/30/2019 6:46 pm CLINICAL HISTORY: Fall left hip pain COMPARISON: CT imaging May 2018. . FINDINGS: AP views of the pelvis and left hip were obtained. Frog-leg view obtained. No fracture is identifiable. No dislocation of either femoral head. Osteopenic changes are evident. No clearly patho logic bone process seen. The mottled appearance to the pelvis and femurs matches prior imaging. Post surgical changes are present at the lumbosacral junction. No soft tissue abnormality. IMPRESSION: No hip fracture identified. No acute left hip finding. Patient has a mottled appearance to the pelvis and proximal femurs matching prior imaging. A progress shine destructive bone process doubtful given the stability.
--- NOTE | 2019-09-30 19:27 | RAD REPORT ---
EXAM DESCRIPTION: RAD - Foot Right 3 View - 09/30/2019 6:46 pm CLINICAL HISTORY: Fall, right foot pain COMPARISON: None. FINDINGS: No acute fracture confirmed and no dislocation. Bones are osteopenic. No pathologic or asia tructive bone process. IP joint degenerative changes are present. Moderate-sized plantar spur is seen . Soft tissues are edematous. Arterial tree calcifications are present. IMPRESSION: Osteopenic and degenerative bony changes are present. A fracture is not seen.
--- NOTE | 2019-09-30 20:43 | RAD REPORT ---
EXAM DESCRIPTION: CT - Hip Left Wo Con - 09/30/2019 8:00 pm CLINICAL HISTORY: rule out fxfall, left hip pain, pain out of proportion to exam findings COMPARISON: Left hip films same date TECHNIQUE: Axial 2 millimeter thick images of the left hip joint were obtained with sagittal and cor onal reformatted images generated and reviewed. The CT scan was performed using dose optimization fady hniques as appropriate to a performed exam including one or more of the following: Automated exposure control, adjustment of the mA and/or kV according to patient size (this includes techniques or stand ardized protocols for targeted exams where dose is matched to indication/reason for exam) and use of iterative reconstruction technique. FINDINGS: No fracture of the proximal femur identified. Osteopenic changes are present but no disrup tion of the neck or subcapital trabecular pattern. Intertrochanteric region is intact. Imaged portions of the left hemipelvis show no fracture. No pathologic bone process seen. Pubic symphysis and SI joint degenerative changes are present. Distal iliopsoas muscle is thickened o hugo what is typically seen. Adjacent musculature is unremarkable. IMPRESSION: Left hip osteopenic and degenerative changes are present but no fracture identified. Intramuscular hematoma and edema changes are present in the iliopsoas muscle near the insertion to th e femur.
[2019-09-30] MEDS ORDERED: FENTANYL CITR 100 MCG/2 ML ONE (21:08)
[2019-09-30 21:36] LABS: Absolute Lymphocytes (CBC) 1.4 K/uL (0.7-4.9); Basophils % 0.6 % (0-1.3); Hematocrit 34.4 % (36.0-45.0); Lymphocytes % 10.2 % (15.3-44.8); MPV 9.4 fL (7.6-11.3); RBC Red Blood Cell Count 3.66 M/uL (3.86-4.86)
[2019-09-30 21:39] LABS: Protime INR 1.41
[2019-09-30 22:09] LABS: Albumin 3.5 g/dL (3.4-5.0); Bilirubin Total 0.3 mg/dL (0.2-1.0); Potassium 5.1 mmol/L (3.5-5.1); Protein, Total 7.7 g/dL (6.4-8.2)
[2019-09-30] MEDS ORDERED: MORPHINE 2 MG/ML SYR ONE (22:10)
--- NOTE | 2019-09-30 22:48 | ER ---
Nurse's Notes [facility] Name: Danielle Yan Age: 64 yrs Sex: Female : 1955 Arrival Date: 09/30/2019 Time: 16:46 Bed 17 Private MD: Diagnosis: Left Iliopsoas Hematoma;Intractable Pain Presentation: 09/30 16:50 Presenting complaint: Patient states: fell at HD on Wed, c/o left hip pain. Transition sv of care: patient was not received from another setting of care. Onset of symptoms was September 27, 2019. Care prior to arrival: None. 16:50 Method Of Arrival: Wheelchair sv 16:50 Acuity: [place] 4 sv 16:55 Risk Assessment: Do you want to hurt yourself or someone else? Patient reports no rb1 desire to harm self or others. Initial Sepsis Screen: Does the patient meet any 2 criteria? No. Patient's initial sepsis screen is negative. Does the patient have a suspected source of infection? No. Patient's initial sepsis screen is negative. Historical: - Allergies: 16:51 No Known Allergies; sv - PMHx: 16:51 Diabetes - NIDDM; Dialysis; Gout; Hypertension; Hypothyroidism; PERIPHERAL NEUROPATHY; sv Renal Disease; - Immunization history:: Adult Immunizations up to date. - Ebola Screening: : Patient negative for fever greater than or equal to 101.5 degrees Fahrenheit, and additional compatible Ebola Virus Disease symptoms. - Social history:: Smoking status: Patient/guardian denies using tobacco. Screenin:55 Abuse screen: Denies threats or abuse. Nutritional screening: No deficits noted. rb1 Tuberculosis screening: No symptoms or risk factors identified. Fall Risk Fall in past 12 months (25 points). Secondary diagnosis (15 points) impaired mobility, No IV (0 pts). Ambulatory Aid- None/Bed Rest/Nurse Assist (0 pts). Gait- Impaired (20 pts.). Mental Status- Oriented to own ability (0 pts). Total Sanchez Fall Scale indicates High Risk Score (45 or more points). Fall prevention measures have been instituted. Side Rails Up X 2 Placed Close to Nursing Station 1:1 Attendant Assigned Frequent Obs/Assessments Occuring Family Present and informed to notify staff if the need to leave the bedside As available patient and family educated on Fall Prevention Program and Strategies. Assessment: 16:55 General: Appears uncomfortable, Behavior is calm, cooperative. Pain: Complains of pain rb1 in left hip Pain radiates to left thigh Pain currently is 10 out of 10 on a pain scale. Pain began 1 hour ago. Pt. reports hearing a pop while getting into the car and had a burning sensation go down her left thigh. Neuro: Level of Consciousness is awake, alert, obeys commands, Oriented to person, place, time, situation. Cardiovascular: Capillary refill < 3 seconds is brisk in bilateral fingers. Respiratory: Airway is patent Respiratory effort is even, unlabored, Respiratory pattern is regular, symmetrical. GI: No signs and/or symptoms were reported involving the gastrointestinal system. : No signs and/or symptoms were reported regarding the genitourinary system. Derm: Bruising that is dark purple, on right great toe. Musculoskeletal: Range of motion: intact in all extremities. 17:55 Reassessment: Patient appears in no apparent distress at this time. No changes from [facility] previously documented assessment. 18:43 Reassessment: Patient appears in no apparent distress at this time. Patient and/or rb1 family updated on plan of care and expected duration. Pain level reassessed. Patient is alert, oriented x 3, equal unlabored respirations, skin warm/dry/pink. 19:30 Reassessment: Patient appears in no apparent distress at this time. Patient and/or wh family updated on plan of care and expected duration. Pain level reassessed. Patient is alert, oriented x 3, equal unlabored respirations, skin warm/dry/pink. 20:30 Reassessment: Patient appears in no apparent distress at this time. No changes from previously documented assessment. Patient and/or family updated on plan of care and expected duration. Pain level reassessed. Patient is alert, oriented x 3, equal unlabored respirations, skin warm/dry/pink. Patient states feeling better. Patient states symptoms have improved. 21:57 Reassessment: Patient appears in no apparent distress at this time. No changes from previously documented assessment. Patient and/or family updated on plan of care and expected duration. Pain level reassessed. Patient is alert, oriented x 3, equal unlabored respirations, skin warm/dry/pink. 23:05 Reassessment: Patient appears in no apparent distress at this time. No changes from previously documented assessment. Patient and/or family updated on plan of care and expected duration. Pain level reassessed. Patient is alert, oriented x 3, equal unlabored respirations, skin warm/dry/pink. Patient states feeling better. Patient states symptoms have improved. 10/01 00:12 Reassessment: Patient appears in no apparent distress at this time. No changes from previously documented assessment. Patient and/or family updated on plan of care and expected duration. Pain level reassessed. Patient is alert, oriented x 3, equal unlabored respirations, skin warm/dry/pink. Patient states feeling better. Patient states symptoms have improved. Vital Signs: 09/30 16:51 BP 100 / 56; Pulse 61; Resp 24; Temp 97.2; Pulse Ox 95% ; Weight 92.99 kg; Height 5 ft. sv 2 in. (157.48 cm); 17:25 BP 111 / 59; Pulse 71; Resp 22; Temp 97.6(O); Pulse Ox 100% on R/A; [facility] 19:30 BP 103 / 67; Pulse 71; Resp 18; Pulse Ox 99% ; 20:30 BP 100 / 67; Pulse 74; Resp 18; Pulse Ox 99% ; 21:57 BP 101 / 61; Pulse 78; Resp 18; Pulse Ox 98% on R/A; 23:00 BP 116 / 74; Pulse 79; Resp 18; Pulse Ox 98% on R/A; 10/01 00:00 BP 105 / 64; Pulse 81; Resp 18; Pulse Ox 99% ; 09/30 16:51 Body Mass Index 37.50 (92.99 kg, 157.48 cm) sv ED Course: 09/30 16:46 Patient arrived in ED. as 16:50 Triage completed. sv 16:51 Arm band placed on. sv 16:53 Diaz Salcido PA is PHCP. [facility] 16:53 Jamie Boles MD is Attending Physician. [facility] 16:55 Patient has correct armband on for positive identification. Bed in low position. Call rb1 light in reach. Side rails up X 1. Pulse ox on. NIBP on. 17:03 Danielle Reddy, RN is Primary Nurse. rb1 17:05 Missed attempt(s): 22 gauge in right antecubital area. rb1 17:26 Warm blanket given. [facility]5 18:46 Hip Left 2 View XRAY In Process Unspecified. EDMS 18:46 Foot Right 3 View XRAY In Process Unspecified. EDMS 19:45 Inserted saline lock: 22 gauge in right forearm, using aseptic technique. Blood wh collected. By Dagoberto Avila RN. 20:00 Hip Left Wo Con In Process Unspecified. EDMS 10/01 00:13 No provider procedures requiring assistance completed. Patient transferred, IV remains in place. Administered Medications: 09/30 18:06 Not Given (Provider changed order to PO): Zofran 4 mg IVP once; over 2 minutes [facility] 18:07 Not Given (Provider changed order to IM): morphine 4 mg IVP once; RASS on ADMIN: rb1 Combtv4, Very Agttd3, Agttd2, Rstlss1, AlertClm0, Drwsy-1, Lt Sdtn-2, Mod Sdtn-3, Dp Sdtn-4, UnArsble-5 18:07 Drug: Zofran 4 mg Route: PO; rb1 20:46 Follow up: Response: No adverse reaction; Nausea is decreased 18:07 Drug: morphine 4 mg Route: IM; Site: right deltoid; rb1 20:46 Follow up: Response: No adverse reaction; Pain is decreased; RASS: Alert and Calm (0) 19:45 Drug: fentaNYL (PF) 50 mcg Route: IVP; Site: right forearm; mg2 20:46 Follow up: Response: No adverse reaction; Pain is decreased; RASS: Alert and Calm (0) 22:12 Drug: morphine 2 mg Route: IVP; Site: right forearm; 10/01 00:11 Follow up: Response: No adverse reaction; Pain is decreased; RASS: Alert and Calm (0) Outcome: 09/30 22:48 ER care complete, transfer ordered by . ephrami 10/01 00:14 Transferred by ground EMS to [facility], Transfer form completed. X-rays sent w/ patient. Note: Report given to Yung Huddleston RN and [facility] Condition: stable Instructed on the need for transfer. 00:15 Patient left the ED. Signatures: Dispatcher [employer] Carmela Meier RN RN sv Mickail, Joel, PA PA Radha Pond Rebecca RN RN rb1 Princess Phillips [facility] Lesly, [facility] Margarita, HENNY Marroquin RN mg2 Corrections: (The following items were deleted from the chart) 09/30 16:53 16:51 Resp 24bpm; Temp 97.2F; 92.99 kg; Height 5 ft. 2 in.; BMI: 37.4; sv sv 10/01 00:11 00:10 morphine 2 mg IVP in right forearm [facility]
--- NOTE | 2019-09-30 22:48 | EDPHYS ---
Physician Documentation [facility] Name: Danielle Yan Age: 64 yrs Sex: Female : 1955 Arrival Date: 09/30/2019 Time: 16:46 Bed 17 Private MD: ED Physician Jamie Boles HPI: 09/30 17:15 This 64 yrs old Female presents to ER via Wheelchair with complaints of Hip jmm Pain. 17:15 The patient or guardian reports pain. Onset: The symptoms/episode began/occurred jmm gradually, 3 day(s) ago. Modifying factors: The symptoms are alleviated by nothing, the symptoms are aggravated by nothing. Associated signs and symptoms: Loss of consciousness: the patient experienced no loss of consciousness, Pertinent negatives:. This is a 64 year old female with a history of DM, EsRD, Gout that presents to the ED with complaints of left hip pain beginning this past Wednesday. Patient felt a pop to her left hip as she stood up. Patient normally needs assistance due to chronic pain. . Historical: - Allergies: 16:51 No Known Allergies; sv - PMHx: 16:51 Diabetes - NIDDM; Dialysis; Gout; Hypertension; Hypothyroidism; PERIPHERAL NEUROPATHY; sv Renal Disease; - Immunization history:: Adult Immunizations up to date. - Ebola Screening: : Patient negative for fever greater than or equal to 101.5 degrees Fahrenheit, and additional compatible Ebola Virus Disease symptoms. - Social history:: Smoking status: Patient/guardian denies using tobacco. ROS: 17:15 Constitutional: Negative for fever, chills, and weight loss, Cardiovascular: Negative jmm for chest pain, palpitations, and edema, Respiratory: Negative for shortness of breath, cough, wheezing, and pleuritic chest pain. 17:15 MS/extremity: Positive for pain. 17:15 All other systems are negative. Exam: 17:15 Constitutional: This is a well developed, well nourished patient who is awake, alert, jmm and in no acute distress. Head/Face: atraumatic. Eyes: EOMI, no conjunctival erythema appreciated ENT: Moist Mucus Membranes Neck: Trachea midline, Supple Chest/axilla: Normal chest wall appearance and motion. Cardiovascular: Regular rate and rhythm. No edema appreciated Respiratory: Normal respirations, no respiratory distress appreciated Abdomen/GI: Non distended, soft Back: Normal ROM 17:15 Skin: ecchymosis noted to the ip joint of the right great toe, < 2 sec dist cap refill. Pain is appreciated on palpation of the left lateral proximal femur. painful rom, compartments are soft, NVI. 17:15 Neuro: Orientation: is normal, Mentation: is normal, Memory: is normal. 17:15 Psych: Behavior/mood is pleasant, cooperative. Vital Signs: 16:51 BP 100 / 56; Pulse 61; Resp 24; Temp 97.2; Pulse Ox 95% ; Weight 92.99 kg; Height 5 ft. sv 2 in. (157.48 cm); 17:25 BP 111 / 59; Pulse 71; Resp 22; Temp 97.6(O); Pulse Ox 100% on R/A; 5 19:30 BP 103 / 67; Pulse 71; Resp 18; Pulse Ox 99% ; wh 20:30 BP 100 / 67; Pulse 74; Resp 18; Pulse Ox 99% ; wh 21:57 BP 101 / 61; Pulse 78; Resp 18; Pulse Ox 98% on R/A; wh 23:00 BP 116 / 74; Pulse 79; Resp 18; Pulse Ox 98% on R/A; 10/01 00:00 BP 105 / 64; Pulse 81; Resp 18; Pulse Ox 99% ; 09/30 16:51 Body Mass Index 37.50 (92.99 kg, 157.48 cm) sv MDM: 09/30 17:12 Patient medically screened. [facility] 22:42 ED course: onema. [facility] 22:46 Data reviewed: vital signs, nurses notes. Counseling: I had a detailed discussion with lacy the patient and/or guardian regarding: the historical points, exam findings, and any diagnostic results supporting the discharge/admit diagnosis, radiology results, the need to transfer to another facility, to return to the emergency department if symptoms worsen or persist or if there are any questions or concerns that arise at home. ED course: Transfer accepted by Dr. Desouza. 09/30 21:08 Order name: CBC with Diff; Complete Time: 21:58 [facility] 09/30 21:08 Order name: CMP; Complete Time: 22:16 [facility] 09/30 17:14 Order name: Hip Left 2 View XRAY; Complete Time: 19:38 [facility] 09/30 17:14 Order name: Foot Right 3 View XRAY; Complete Time: 19:38 [facility] 09/30 21:08 Order name: PT-INR; Complete Time: 21:58 [facility] 09/30 17:13 Order name: Saline Lock; Complete Time: 19:18 [facility] 09/30 19:33 Order name: Hip Left Wo Con; Complete Time: 20:51 EDMS Administered Medications: 18:06 Not Given (Provider changed order to PO): Zofran 4 mg IVP once; over 2 minutes [facility] 18:07 Not Given (Provider changed order to IM): morphine 4 mg IVP once; RASS on ADMIN: rb1 Combtv4, Very Agttd3, Agttd2, Rstlss1, AlertClm0, Drwsy-1, Lt Sdtn-2, Mod Sdtn-3, Dp Sdtn-4, UnArsble-5 18:07 Drug: Zofran 4 mg Route: PO; rb1 20:46 Follow up: Response: No adverse reaction; Nausea is decreased 18:07 Drug: morphine 4 mg Route: IM; Site: right deltoid; rb1 20:46 Follow up: Response: No adverse reaction; Pain is decreased; RASS: Alert and Calm (0) 19:45 Drug: fentaNYL (PF) 50 mcg Route: IVP; Site: right forearm; mg2 20:46 Follow up: Response: No adverse reaction; Pain is decreased; RASS: Alert and Calm (0) 22:12 Drug: morphine 2 mg Route: IVP; Site: right forearm; 10/01 00:11 Follow up: Response: No adverse reaction; Pain is decreased; RASS: Alert and Calm (0) Disposition: 07:21 Co-signature as Attending Physician, Jamie Boles MD. rn Disposition: 09/30/19 22:48 Transfer ordered to [facility]. Diagnosis are Left Iliopsoas Hematoma, Intractable Pain. - Reason for transfer: Higher level of care. - Accepting physician is On[facility]. - Condition is Stable. - Problem is new. - Symptoms are unchanged. Signatures: Dispatcher [employer] EDMS Carmela Alarcon RN RN sv Mickail, Joel, PA PA jmm Nieto, Roman, MD MD rn Barber, Rebecca, RN RN rb1 Andrey Grace Lopez Avila, RN RN mg2 Corrections: (The following items were deleted from the chart) 09/30 19:33 19:21 CT LEFT HIP WO CONTRAST ordered. EDMS EDMS 10/01 00:15 09/30 22:48 09/30/2019 22:48 Transfer ordered to [facility]. Diagnosis is Left Iliopsoas Hematoma; Intractable Pain. Reason for transfer: Higher level of care. [facility] Condition is Stable. Problem is new. Symptoms are unchanged. lacy
[2019-10-01 02:36] VITALS: TEMP 97.6
[2019-10-01 02:43] VITALS: BP 105/64; O2SAT 99
== END 2019-10-01 00:15 | disposition short-term general hospital (02) ==
LOC: ER 16:44
DX: M79.81 Nontraumatic hematoma of soft tissue (principal); I11.0 Hypertensive heart disease with heart failure; E11.9 Type 2 diabetes mellitus without complications
CPT/HCPCS: 85025; 36415; 85610; 80053; 73700; 73502; 73630; 96375; 96372; 96374; 99285; J3010; J2270; J2405

== ENCOUNTER 2019-10-07 17:37 | Observation (INO) | payer OTHER ==
--- OUTSIDE RECORDS SUMMARY | 2019-10-07 17:39 | XMS REPORT ---
[...] End Status Dosage System Date Date Levofloxacin [facility] 67418566523 500 MG Oral Active not defined Gabapentin [facility] 80088755350 100 MG Oral Active not defined Clonazepam [facility] 37414044786 0.5 MG Oral Active (Schedule IV Drug) Metolazone [facility] 12952705778 5 MG Oral Active not defined Furosemide [facility] 82559301309 80 MG Oral Active not defined Allopurinol [facility] 73540099988 100 MG Oral Active not defined Vancomycin HCl [facility] 17102097642 1000 MG Active not Intravenous defined Colchicine [facility] 05027935448 0.6 MG Orally Active 1 tablet Once a day Escitalopram [facility] 54704499119 20 MG Oral Active not Oxalate defined Eliquis [facility] 88952569020 5 MG Oral Active not defined Tramadol HCl [facility] 85816135985 50 MG Oral Active (Schedule IV Drug) Results No Known Results Summary Purpose eClinicalWorks Submission
--- OUTSIDE RECORDS SUMMARY | 2019-10-07 17:39 | XMS REPORT ---
:1955 [facility] Address [address] [place] [address] Care Team Providers Name Role Phone Unavailable [...] Date/Time Type Type Clinicians Facility Department ID 2019-10-01 Inpatient U [facility] ED 0011 01:07:00 2019-09-19 Inpatient [facility] [id number] 09:38:59 2018-12-20 Inpatient E [facility] [id number] 05:54:00 2019-07-26 2019-07-24 Inpatient U [facility] [id number] 11:35:00 12:26:00 2019-05-30 2019-05-30 Outpatient [facility] 7525 10:24:00 10:24:00 2019-01-25 2019-01-25 Outpatient [facility] [id number] 05:46:00 05:46:00 2019-01-02 2019-01-02 Outpatient [facility] [id number] 06:15:00 06:15:00 2018-12-28 2018-12-28 Outpatient [facility] [id number] 14:09:00 14:09:00 Results Test Description Test [...] PHOSPHATASE (test 101 U/L 32-104 code=ALKP) PROTHROMBIN [id number] 08:01:00 Test Item Value Reference Range Comments [...] heart valves; 2.5-3.5recurrent systemic embolism. THROMBOPLASTIN TIME [id number] 08:01:00 Test Item Value Reference Range Comments THROMBOPLASTIN TIME PARTIAL 32.1 SECONDS 26.0-35.9 INTERPRETATIVE (test code=PTT) DATA:Therapeutic range: Unfractionated heparin:47 - 71 seconds Argatroban:1.5 to 3 times the baseline PTT COMPREHENSIVE METABOLIC [id number] 07:55:00 Test Item Value Reference Range Comments [...] 101 U/L 32-104 code=ALKP) HGBA1C - GLYCOSYLATED [id number] 07:52:00 Test Item Value Reference Range Comments GLYCOSYLATED HEMOGLOBIN (HA1C) 6.1 % 0.0-5.6 INTERPRETATIVE DATA:HGBA1C (test code=GLYHGB) levels above the established reference range are anindication of hyperglycemia during the preceeding 2 - 3months orlonger. HBA1C levels may reach 20% or higher in poorlycontrolled diabetes. Therapeutic action is suggested atlevels above 8%.Diabetic patients with HBA1C levels below 7% meet the goalof the [place] [employer]. Normal: <5.7Pre-Diabetes: 5.7 6.4Diabetic: >6.5Therapeutic goal for glycemic control: <7.0 CBC W/AUTO [id number] 07:45:00 Test Item Value Reference Range Comments [...]
--- OUTSIDE RECORDS SUMMARY | 2019-10-07 17:39 | XMS REPORT ---
:1955 Author Organization eClinicalWorks Care Team Providers Name Role Phone Garret Stearns Provider Role Unavailable Allergies No Known Allergies Problems No Known Problems Medications Medication Code Code Instructions Start End Date Status Dosage System Date Tramadol HCl [facility] [id number] 50 MG Orally Jun 28, Active 1 tablet every 6 hrs 2017 as needed Results No Known Results Summary Purpose eClinicalWorks Submission
--- OUTSIDE RECORDS SUMMARY | 2019-10-07 17:40 | XMS REPORT | Summary of Care ---
:1955 Author Name ADELSO Thompson, LIANET Alonso [place] Physicians Unavailable , Care Team Providers Name Role Phone RICARDO Thompson, DORINDA Unavailable Unavailable JANELL Thompson, LIVAN Unavailable Unavailable LOLITA Thompson, RIZWAN Unavailable Unavailable NAVIN Thompson, RAHDA Unavailable Unavailable EMELI Thompson, MARLYS Unavailable Unavailable JANELL GREENE, LIVAN Unavailable Unavailable TRI GREENE [place], GRABIEL Unavailable Unavailable CALDERON GREENE, AMY Unavailable Unavailable JOANN GREENE [place], MARYBETH Jansen Unavailable Unavailable Mary GREENE, Lanre Unavailable Unavailable MAXIMO GREENE, SIXTO Jansen Unavailable Unavailable Rudolph GREENE, Buster Unavailable Unavailable RICARDO GREENE, DORINDA Royal Unavailable Unavailable Belen GREENE, Dio Unavailable Unavailable FARHAT GREENE, KRYSTAL K Unavailable Unavailable LOLITA GREENE [place], RIZWAN Unavailable Unavailable GINNY GREENE, JHONATAN Unavailable [...] TAKE 1 TABLET DAILY DIRECTED. Refills: 0 M.A.Active Eliquis 5 MG Oral Tablet TAKE 1 [...] CAPSULE TWICE DAILY. Quantity: 180 Refills: 3 LOLITA Thompson RIZWAN Start : 01-May-2019 Active Allopurinol 100 MG Oral Tablet Refills: 0 M.A.Active PhosLo CAPS Refills: 0 M.A.Active Midodrine HCl - 2.5 MG Oral Tablet Refills: 0 M.A.Active Erythromycin Base 500 MG Oral Tablet TAKE 2 TABLET Other 1gm (2tabs) at 1100, 1300, 2200 day before surgery Quantity: 6 Refills: 0 ANDRASSY M.DOtilia, DORINDA Start : 25-Jul-2019 Active Neomycin Sulfate 500 MG Oral Tablet TAKE 2 TABLET Other Take 1gm (2 Tabs) at 1100, 1300, 2200 day before surgery Quantity: 6 Refills: 0 ANDRASSY M.James, DORINDA Start : 25-Jul-2019 Active clonazePAM 1 [...] Z87.440) Status: Resolved Procedures Procedure Dates Details XRAY Ankle 3 views Bilateral 68101 Date: 28-Sep-2019 XRAY Foot 3 views Bilateral [id number] Date: 28-Sep-2019 XRAY Toe [id number] Date: 28-Sep-2019 History of Thyroid Surgery Substernal [...] 65yrs) or more drinks in a day? :55 BP Systolic 95 mm[Hg] Status: Comments: Location: [...] Rate 16 /min Status: Comments: Quality: Normal :51 Physical Findings 13 Status: Comments: PHQ-9 Adult Depression Screening Results Date Description Value Details :28 [QLH] TSH, 3RD GENERATION TSH 7.540 {uIU/ml} (Above high threshold) Range: 0.360-3.740 Plan of Care Name Dates Details Planned Observations Planned Goals not documented Planned Encounters Appointment; DORINDA SILVA M.D. On: 03-Oct-2019 8:00 Appointment; PEGGY JIMENEZ M.D. On: 10-Oct-2019 11:20 Appointment; SIXTO MARSH M.D. On: 10-Oct-2019 14:00 Appointment; AMY MANCERA M.D. On: 09-Nov-2019 15:30 Appointment; RIZWAN MCHUGH M.D. On: 10-Nov-2019 15:30 Appointment; KRYSTAL DOUGHERTY M.D. On: 15-Nov-2019 7:30 Interventions Provided Discussion/SummaryDear Ms. DESTINEY PRITCHARD Thyroid: Abnormal-but MUCH better than your last level. We can do one of 2 things: keep your dose as is and repeat in 3 months or go ahead and increase your dose of thyroid hormone a little bit higher and repeat in 4 to 6 weeks. Please let me know your preference. Instructions Name Dates Details Instructions not documented Encounters Appointment; DIO LOCKETT M.D. On: 14-Oct-2017 15:00 Encounter Diagnosis: Problem not documented Appointment; MARYBETH DAVID M.D. On: 06-Dec-2017 10:45 Encounter Diagnosis: Problem not documented Appointment; TENISHA ELLISON On: 09-Dec-2017 12:00 Encounter Diagnosis: Problem not documented Appointment; MARYBETH DAVID M.D. On: 27-Dec-2017 9:00 Encounter Diagnosis: Problem not documented Appointment; TENISHA ELLISON On: 19-Jan-2018 9:00 Encounter Diagnosis: Problem not [...] Encounter Diagnosis: Problem not documented Appointment; DAVI PEREZ M.D. On: 26-Apr-2018 11:00 Encounter Diagnosis: Problem not documented Appointment; Ranjan Glez M.D. On: 03-May-2018 11:30 Encounter Diagnosis: Problem not documented Appointment; KRYSTAL DOUGHERTY M.D. On: 11-May-2018 10:30 Encounter Diagnosis: Problem not documented Appointment; Ranjan Glez M.D. On: 17-May-2018 13:00 Encounter Diagnosis: Problem not documented Appointment; GENERAL, SERVICE On: 16-Jun-2018 13:00 Encounter Diagnosis: Problem not documented Appointment; [facility] On: 17-Jun-2018 10:00 Encounter Diagnosis: [...] Encounter Diagnosis: Problem not documented Appointment; VASCULAR, [facility] On: 21-Jul-2019 10:00 Encounter Diagnosis: Problem not [...] 16:00 Encounter Diagnosis: Problem not documented Appointment; SIXTO MARSH M.D. On: 15-Aug-2019 11:15 Encounter Diagnosis: Problem not documented Appointment; LIANET DARDEN M.D. On: 28-Sep-2019 15:30 Encounter Diagnosis: Problem not documented
--- NOTE | 2019-10-07 20:38 | ER ---
Nurse's Notes [facility] Name: Danielle Yan Age: 64 yrs Sex: Female : 1955 Arrival Date: 10/07/2019 Time: 17:46 Bed 6 Private MD: Diagnosis: Chronic pain syndrome;Other reduced mobility;Obesity, unspecified;End stage renal disease;Anemia, unspecified Presentation: 10/07 17:47 Presenting complaint: EMS states: Pt discharged from [facility] yesterday and pt jl7 wants rehab. Daughter reports [facility] was supposed to set up ambulance service for dialysis on Wednesday but they didn't and she was discharged from the hospital too soon, she cannot walk and she needs inpatient rehab. Transition of care: patient was not received from another setting of care. Onset of symptoms was October 07, 2019. Risk Assessment: Do you want to hurt yourself or someone else? Patient reports no desire to harm self or others. Initial Sepsis Screen: Does the patient meet any 2 criteria? No. Patient's initial sepsis screen is negative. Does the patient have a suspected source of infection? No. Patient's initial sepsis screen is negative. Care prior to arrival: None. 17:47 Method Of Arrival: EMS: [facility] 17:47 Acuity: [place] 3 jl7 Triage Assessment: 18:02 General: Appears in no apparent distress. uncomfortable, Behavior is cooperative. Pain: jl7 Complains of pain in left hip Pain currently is 6 out of 10 on a pain scale. Historical: - Allergies: 18:02 No Known Allergies; jl7 - Home Meds: 18:02 allopurinol 100 mg Oral tab 1 tab once daily [Active]; Cartia XT 240 mg Oral cp24 1 cap jl7 once daily [Active]; escitalopram oxalate 20 mg Oral tab 1 tab once daily [Active]; Tradjenta 5 mg oral tab 1 tab once daily [Active]; apixaban oral oral [Active]; Baclofen Oral [Active]; clonazepam 0.5 mg Oral tab [Active]; colchicine-probenecid 0.5-500 mg oral tab [Active]; gabapentin 100 mg Oral cap [Active]; levothyroxine 150 mcg oral tab [Active]; methocarbamol 500 mg Oral tab [Active]; midodrine 10 mg oral tab [Active]; sevelamer HCl oral oral [Active]; parsabiv 2.5 mg 3 x week post dialysis [Active]; Xanax 0.5 mg Oral tab 1 tab twice a day [Active]; - PMHx: 18:02 Diabetes - NIDDM; Dialysis; Gout; Hypertension; Hypothyroidism; PERIPHERAL NEUROPATHY; jl7 Renal Disease; Factor 5 Leiden; - PSHx: 18:02 Cholecystectomy; colostomy and reversal; right subclavian dialysis port; left upper arm jl7 fistula; - Immunization history:: Adult Immunizations up to date. - Social history:: Smoking status: Patient denies any tobacco usage or history of. - Ebola Screening: : No symptoms or risks identified at this time. Screenin:02 Abuse screen: Denies threats or abuse. Nutritional screening: No deficits noted. jd3 Tuberculosis screening: No symptoms or risk factors identified. Fall Risk Ambulatory Aid- Crutches/Cane/Walker (15 pts). Gait- Weak (10 pts.). Mental Status- Oriented to own ability (0 pts). Total Sanchez Fall Scale indicates Low Risk Score (25-44 pts). Fall prevention measures have been instituted. Side Rails Up X 2 Placed close to Nursing Station Frequent Obs/Assesments occuring Family Present and informed to notify staff if they need to leave bedside. Assessment: 19:30 General: Appears in no apparent distress. Behavior is calm, cooperative. rv 19:30 Pain: Complains of pain in left leg and left hip. Neuro: Level of Consciousness is rv awake, alert, obeys commands, Oriented to person, place, time, situation. Cardiovascular: Patient's skin is warm and dry. Respiratory: Airway is patent. Derm: Skin with poor turgor. 22:35 Reassessment: Patient appears in no apparent distress at this time. Patient and/or rv family updated on plan of care and expected duration. Pain level reassessed. Patient is alert, oriented x 3, equal unlabored respirations, skin warm/dry/pink. Vital Signs: 18:02 BP 105 / 64; Pulse 88; Resp 16 S; Temp 98.6(O); Pulse Ox 100% on R/A; Weight 92.99 kg jl7 (R); Height 5 ft. (152.40 cm) (R); Pain 6/10; 19:00 BP 112 / 60; Pulse 82; Resp 17; Pulse Ox 99% on R/A; rv 20:00 BP 110 / 66; Pulse 76; Resp 16; Pulse Ox 99% on R/A; rv 21:00 BP 108 / 68; Pulse 76; Resp 16; Pulse Ox 99% on R/A; rv 22:15 BP 106 / 68; Pulse 74; Resp 16; Pulse Ox 99% on R/A; rv 10/08 00:35 BP 113 / 86; Pulse 87; Resp 16; Pulse Ox 99% on R/A; rv 10/07 18:02 Body Mass Index 40.04 (92.99 kg, 152.40 cm) jl7 ED Course: 10/07 17:46 Patient arrived in ED. mr 17:52 Triage completed. jl7 18:02 Arm band placed on right wrist. jl7 19:14 Isreal Storm MD is Attending Physician. [facility] 19:50 Danish Lloyd, HENNY is Primary Nurse. rv 20:02 Patient has correct armband on for positive identification. Bed in low position. Call jd3 light in reach. Side rails up X 1. Adult w/ patient. 20:26 Missed attempt(s): 24 gauge in right upper arm. rv 20:29 Ruthie Estes MD is Hospitalizing Provider. adrian 21:31 Inserted saline lock: 18 gauge in left EJ, using aseptic technique. ,using aseptic rv technique. BY Dr STORM Blood collected. 21:56 XRAY Chest (1 view) In Process Unspecified. EDMS 21:56 Pelvis XRAY In Process Unspecified. EDMS 21:56 Hip Left 2 View XRAY In Process Unspecified. EDUT 10/08 00:36 No provider procedures requiring assistance completed. Patient admitted, IV remains in rv place. Administered Medications: No medications were administered Outcome: 10/07 20:36 Decision to Hospitalize by Provider. [facility] 10/08 00:36 Admitted to ER Hold. Please see [facility] for further documentation. rv Condition: good Instructed on the need for admit. 13:51 Patient left the ED. Signatures: Dispatcher [employer] EDMS Isreal Storm MD MD cha Rivera, Mary mr Latesha Reagan RN RN Neema Hernandes RN RN jlJuanito Sanchez RN RN Danish Barragan RN RN rv Corrections: (The following items were deleted from the chart) 10/07 19: 20:00 General: Appears in no apparent distress. uncomfortable, Behavior is calm, jd3 cooperative, appropriate for age, j 20:00 Pain: Complains of pain in left hip Quality of pain is described as aching, jd3 tender, j : 20:00 Neuro: Level of Consciousness is awake, alert, obeys commands, Oriented to jd3 person, place, time, situation, j 20:00 Cardiovascular: Denies chest pain, Capillary refill < 3 seconds Patient's skin is jd3 warm and dry. j 20:00 Respiratory: Airway is patent Respiratory effort is even, unlabored, Respiratory j pattern is regular, symmetrical, Denies cough, shortness of breath j 20:00 GI: No signs and/or symptoms were reported involving the gastrointestinal system. j Patient currently denies nausea, vomiting, [facility] : : No signs and/or symptoms were reported regarding the genitourinary system. [id number] 20: 20:00 EENT: No signs and/or symptoms were reported regarding the EENT system. jd3 j 20:00 Derm: Skin is intact, Skin is dry, Skin is normal, Skin temperature is warm jd3 jd3 20:00 Musculoskeletal: Circulation, motion, and sensation intact. Range of motion: jd3 limited in left hip Swelling present in right leg and left leg j
--- NOTE | 2019-10-07 20:38 | EDPHYS ---
Physician Documentation [facility] Name: Danielle Yan Age: 64 yrs Sex: Female : 1955 Arrival Date: 10/07/2019 Time: 17:46 Bed 6 Private MD: ED Physician Isreal Wilson HPI: 10/07 19:47 This 64 yrs old Female presents to ER via EMS with complaints of Hip Pain. adrian 19:47 The patient or guardian reports decreased range of motion. adrian Historical: - Allergies: 18:02 No Known Allergies; jl7 - Home Meds: 18:02 allopurinol 100 mg Oral tab 1 tab once daily [Active]; Cartia XT 240 mg Oral cp24 1 cap jl7 once daily [Active]; escitalopram oxalate 20 mg Oral tab 1 tab once daily [Active]; Tradjenta 5 mg oral tab 1 tab once daily [Active]; apixaban oral oral [Active]; Baclofen Oral [Active]; clonazepam 0.5 mg Oral tab [Active]; colchicine-probenecid 0.5-500 mg oral tab [Active]; gabapentin 100 mg Oral cap [Active]; levothyroxine 150 mcg oral tab [Active]; methocarbamol 500 mg Oral tab [Active]; midodrine 10 mg oral tab [Active]; sevelamer HCl oral oral [Active]; parsabiv 2.5 mg 3 x week post dialysis [Active]; Xanax 0.5 mg Oral tab 1 tab twice a day [Active]; - PMHx: 18:02 Diabetes - NIDDM; Dialysis; Gout; Hypertension; Hypothyroidism; PERIPHERAL NEUROPATHY; jl7 Renal Disease; Factor 5 Leiden; - PSHx: 18:02 Cholecystectomy; colostomy and reversal; right subclavian dialysis port; left upper arm jl7 fistula; - Immunization history:: Adult Immunizations up to date. - Social history:: Smoking status: Patient denies any tobacco usage or history of. - Ebola Screening: : No symptoms or risks identified at this time. ROS: 19:48 Constitutional: Negative for fever, chills, and weight loss, Eyes: Negative for injury, adrian pain, redness, and discharge, ENT: Negative for injury, pain, and discharge, Neck: Negative for injury, pain, and swelling, Cardiovascular: Negative for chest pain, palpitations, and edema, Respiratory: Negative for shortness of breath, cough, wheezing, and pleuritic chest pain, Abdomen/GI: Negative for abdominal pain, nausea, vomiting, diarrhea, and constipation, Back: Negative for injury and pain, : Negative for injury, bleeding, discharge, and swelling, Skin: Negative for injury, rash, and discoloration, Neuro: Negative for headache, weakness, numbness, tingling, and seizure, Psych: Negative for depression, anxiety, suicide ideation, homicidal ideation, and hallucinations, Endocrine: Negative for neck swelling, polydipsia, polyuria, polyphagia, and marked weight changes. 19:48 MS/extremity: Positive for decreased range of motion, pain, tenderness, of the left hip. Exam: 19:48 Constitutional: This is a well developed, well nourished patient who is awake, alert, adrian and in no acute distress. Head/Face: Normocephalic, atraumatic. Eyes: Pupils equal round and reactive to light, extra-ocular motions intact. Lids and lashes normal. Conjunctiva and sclera are non-icteric and not injected. Cornea within normal limits. Periorbital areas with no swelling, redness, or edema. ENT: Nares patent. No nasal discharge, no septal abnormalities noted. Tympanic membranes are normal and external auditory canals are clear. Oropharynx with no redness, swelling, or masses, exudates, or evidence of obstruction, uvula midline. Mucous membranes moist. Neck: Trachea midline, no thyromegaly or masses palpated, and no cervical lymphadenopathy. Supple, full range of motion without nuchal rigidity, or vertebral point tenderness. No Meningismus. Chest/axilla: Normal chest wall appearance and motion. Nontender with no deformity. No lesions are appreciated. Cardiovascular: Regular rate and rhythm with a normal S1 and S2. No gallops, murmurs, or rubs. Normal PMI, no JVD. No pulse deficits. Respiratory: Lungs have equal breath sounds bilaterally, clear to auscultation and percussion. No rales, rhonchi or wheezes noted. No increased work of breathing, no retractions or nasal flaring. Abdomen/GI: Soft, non-tender, with normal bowel sounds. No distension or tympany. No guarding or rebound. No evidence of tenderness throughout. Back: No spinal tenderness. No costovertebral tenderness. Full range of motion. Neuro: Awake and alert, GCS 15, oriented to person, place, time, and situation. Cranial nerves II-XII grossly intact. Motor strength 5/5 in all extremities. Sensory grossly intact. Cerebellar exam normal. Normal gait. Psych: Awake, alert, with orientation to person, place and time. Behavior, mood, and affect are within normal limits. 19:48 Musculoskeletal/extremity: ROM: limited active range of motion due to pain, limited passive range of motion due to pain, Circulation is intact in all extremities. Compartment Syndrome exam of affected extremity: is normal. DVT Exam: negative Homans' sign noted on exam, no appreciated bluish discoloration, no erythema, no increased warmth, pain, swelling, tenderness. Vital Signs: 18:02 BP 105 / 64; Pulse 88; Resp 16 S; Temp 98.6(O); Pulse Ox 100% on R/A; Weight 92.99 kg jl7 (R); Height 5 ft. (152.40 cm) (R); Pain 6/10; 19:00 BP 112 / 60; Pulse 82; Resp 17; Pulse Ox 99% on R/A; rv 20:00 BP 110 / 66; Pulse 76; Resp 16; Pulse Ox 99% on R/A; rv 21:00 BP 108 / 68; Pulse 76; Resp 16; Pulse Ox 99% on R/A; rv 22:15 BP 106 / 68; Pulse 74; Resp 16; Pulse Ox 99% on R/A; rv 10/08 00:35 BP 113 / 86; Pulse 87; Resp 16; Pulse Ox 99% on R/A; rv 10/07 18:02 Body Mass Index 40.04 (92.99 kg, 152.40 cm) jl7 Procedures: 10/07 21:28 Peripheral line: by aseptic technique a peripheral line was placed in the left external adrian jugular vein. MDM: 19:14 Patient medically screened. [facility] 19:50 Data reviewed: vital signs, nurses notes, lab test result(s), EKG, radiologic studies, [facility] plain films. 10/07 19:47 Order name: Basic Metabolic Panel; Complete Time: 22:13 [facility] 10/07 19:47 Order name: CBC with Diff; Complete Time: 21:57 [facility] 10/07 19:47 Order name: LFT's; Complete Time: 22:13 [facility] 10/07 19:47 Order name: Magnesium; Complete Time: 22:13 [facility] 10/07 19:47 Order name: NT PRO-BNP; Complete Time: 22:13 [facility] 10/07 19:47 Order name: PT-INR; Complete Time: 21:57 [facility] 10/07 19:47 Order name: Troponin (emerg Dept Use Only); Complete Time: 22:13 [facility] 10/07 19:47 Order name: XRAY Chest (1 view) [facility] 10/07 19:47 Order name: Urine Culture [facility] 10/07 19:47 Order name: Pelvis XRAY [facility] 10/07 21:52 Order name: CBC with Automated Diff [facility] 10/07 21:52 Order name: CBC with Automated Diff [facility] 10/07 21:52 Order name: Comprehensive Metabolic Panel [facility] 10/07 21:52 Order name: Comprehensive Metabolic Panel [facility] 10/07 19:47 Order name: EKG; Complete Time: 19:48 [facility] 10/07 19:47 Order name: Cardiac monitoring; Complete Time: 19:51 [facility] 10/07 19:47 Order name: EKG - Nurse/Tech; Complete Time: 20:00 [facility] 10/07 19:47 Order name: IV Saline Lock; Complete Time: 21:32 [facility] 10/07 19:47 Order name: Labs collected and sent; Complete Time: 21:32 [facility] 10/07 19:47 Order name: O2 Per Protocol; Complete Time: 19:51 [facility] 10/07 19:47 Order name: O2 Sat Monitoring; Complete Time: 19:51 [facility] 10/07 19:47 Order name: Hip Left 2 View XRAY [facility] 10/07 21:52 Order name: CONS Pharmacy Consult [facility] 10/07 21:52 Order name: CONS Physician Consult [facility] 10/07 21:52 Order name: Renal EDMS Administered Medications: No medications were administered Disposition: 10/07/19 20:36 Hospitalization ordered by Ruthie Estes for Inpatient Admission. Preliminary diagnosis are Chronic pain syndrome, Other reduced mobility, Obesity, unspecified, End stage renal disease, Anemia, unspecified. - Bed requested for Telemetry/MedSurg (Inpatient). - Status is Inpatient Admission. hb - Condition is Fair. - Problem is new. - Symptoms have improved. UTI on Admission? No Signatures: Dispatcher [employer] EDArleen Mera, RN RN Verito Ziegler RN RN aa1 Isreal Wilson MD MD cha Baxter, Heather, RN RN Neema Hernandes RN RN jl7 Corrections: (The following items were deleted from the chart) 22:16 20:36 Hospitalization Ordered by Ruthie Estes MD for Inpatient Admission. Preliminary [facility] diagnosis is Chronic pain syndrome; Other reduced mobility; Obesity, unspecified; End stage renal disease. Bed requested for Telemetry/MedSurg (Inpatient). Status is Inpatient Admission. Condition is Fair. Problem is new. Symptoms have improved. UTI on Admission? No. adrian 23:04 22:16 10/07/2019 20:36 Hospitalization Ordered by Ruthie Estes MD for Inpatient aa1 Admission. Preliminary diagnosis is Chronic pain syndrome; Other reduced mobility; Obesity, unspecified; End stage renal disease; Anemia, unspecified. Bed requested for Telemetry/MedSurg (Inpatient). Status is Inpatient Admission. Condition is Fair. Problem is new. Symptoms have improved. UTI on Admission? No. adrian 10/08 12:48 10/07 23:04 10/07/2019 20:36 Hospitalization Ordered by Ruthie Estes MD for Inpatient dw Admission. Preliminary diagnosis is Chronic pain syndrome; Other reduced mobility; Obesity, unspecified; End stage renal disease; Anemia, unspecified. Bed requested for [facility] ER HOLD. Status is Inpatient Admission. Condition is Fair. Problem is new. Symptoms have improved. UTI on Admission? No. aa1 10/08 13:51 12:48 10/07/2019 20:36 Hospitalization Ordered by Ruthie Estes MD for Inpatient hb Admission. Preliminary diagnosis is Chronic pain syndrome; Other reduced mobility; Obesity, unspecified; End stage renal disease; Anemia, unspecified. Bed requested for Telemetry/MedSurg (Inpatient). Status is Inpatient Admission. Condition is Fair. Problem is new. Symptoms have improved. UTI on Admission? No. dw
[2019-10-07 21:37] LABS: Absolute Lymphocytes (CBC) 0.9 K/uL (0.7-4.9); Basophils % 0.7 % (0-1.3); Hematocrit 30.1 % (36.0-45.0); Lymphocytes % 10.9 % (15.3-44.8); MPV 8.6 fL (7.6-11.3)
[2019-10-07 21:40] LABS: Protime INR 1.35
[2019-10-07] MEDS ORDERED: ONDANSETRON 4 MG/2 ML VIAL IV PRN (21:48)
[2019-10-07] MEDS ORDERED: ACETAMINOPHEN 500 MG TAB PO PRN (21:48)
[2019-10-07 21:58] LABS: Albumin 3.1 g/dL (3.4-5.0); Bilirubin Direct 0.1 mg/dL (0-0.2); Bilirubin Total 0.9 mg/dL (0.2-1.0); Magnesium 2.2 mg/dL (1.8-2.4); Potassium 4.6 mmol/L (3.5-5.1); Protein, Total 7.2 g/dL (6.4-8.2); Troponin (Emerg Dept Use Only) 0.12 ng/mL (0.0-0.045)
[2019-10-08 00:26] VITALS: BMI 40.0
[2019-10-08] MEDS ORDERED: MORPHINE 4 MG/ML SYR ONE ×2 (01:06→09:41)
[2019-10-08] MEDS ORDERED: ONDANSETRON 4 MG/2 ML VIAL ONE (01:06)
[2019-10-08] MEDS: MORPHINE 4 MG/ML SYR IV PRN ×2 (01:08→09:45)
[2019-10-08 05:20] LABS: Absolute Lymphocytes (CBC) 1.7 K/uL (0.7-4.9); Basophils % 0.7 % (0-1.3); Hematocrit 27.4 % (36.0-45.0); MPV 9.1 fL (7.6-11.3); RBC Red Blood Cell Count 2.91 M/uL (3.86-4.86)
[2019-10-08 05:38] LABS: Albumin 2.8 g/dL (3.4-5.0); Bilirubin Total 0.8 mg/dL (0.2-1.0); Potassium 4.4 mmol/L (3.5-5.1); Protein, Total 6.6 g/dL (6.4-8.2)
[2019-10-08] MEDS ORDERED: clonazePAM 0.5 MG TAB PO PRN (08:39)
--- NOTE | 2019-10-08 08:44 | P.HP ---
Certification for Inpatient Patient admitted to: Observation With expected LOS: <2 Midnights Patient will require the following post-hospital care: None Practitioner: I am a practitioner with admitting privileges, knowledge of patient current condition, hospital course, and medical plan of care. Services: Services provided to patient in accordance with Admission requirements found in Title 42 Section 412.3 of the Code of Federal Regulations Patient History Date of Service: 10/07/19 Reason for admission: Patient unable to ambulate effectively History of Present Illness: Patient is a 64-year-old female with numerous medical issues including end- stage renal disease, coronary artery disease, recent fall with ileopsoas hematoma, who comes in with inability to ambulate since discharge from [facility]. Patient was to have hemodialysis appointment time scheduled so the family could transport her to the dialysis center. Patient was also supposed to work with physical therapy but she was having too much pain. They went ahead and called EMS and the ambulance brought patient home. Home health came out as assess the patient in the morning today and they felt like it imperative that patient have EMS notify so they can assist and assigning bed. Clinically, patient is doing well with no other complaints. Allergies No Known Allergies Allergy (Verified 03/22/18 01:54) Home Medications: Escitalopram Oxalate [Lexapro] 20 mg PO DAILY 05/03/12 Apixaban [Eliquis *] 1 tab PO DAILY 03/22/18 Gabapentin [Neurontin*] 300 mg PO BID 03/22/18 Levothyroxine [Synthroid] 150 mcg PO [id number] 03/22/18 allopurinoL [Allopurinol] 100 mg PO DAILY 03/22/18 Linagliptin [Tradjenta] 5 mg PO ONCE 10/08/19 Midodrine HCl 10 mg PO PRN 10/08/19 clonazePAM [Clonazepam] 0.5 mg PO BID PRN 10/08/19 methocarbamoL [Methocarbamol] 2 tab PO Q8HP 10/08/19 - Past Medical/Surgical History Diabetic: Yes -: HD -: NIDDM -: HTN -: Gout -: Hypothyroid -: Peripheral neuropathy -: BLE DVT 2010 and 2011 -: Renal Disease -: Thyroidectomy -: Choleycystectomy -: Carpal Tunnel -: Laminectomy -: Umbilical Hernia repair x2 -: Partial COlectomy- Bladder repair for rectovesical fistula -: Colostomy (and reversal) -: Spinal FUsion, Heel spurs BLE - Family History Mother Medical History: Heart disease, Hypertension, Diabetes, Kidney disease Sister Medical History: Hypertension - Social History Smoking Status: Never smoker Review of Systems 10-point ROS is otherwise unremarkable Physical Examination - Vital Signs Temperature: 99.4 F Blood Pressure: 98/63 Pulse: 69 Respirations: 17 Pulse Ox (%): 100 - Physical Exam General: Alert, In no apparent distress, Oriented x3 HEENT: Atraumatic, PERRLA, Mucous membr. moist/pink, EOMI, Sclerae nonicteric Neck: Supple, 2+ carotid pulse no bruit, No LAD, Without JVD or thyroid abnormality Respiratory: Clear to auscultation bilaterally, Normal air movement Cardiovascular: Regular rate/rhythm, Normal S1 S2, No murmurs Gastrointestinal: Normal bowel sounds, Soft and benign, Non-distended, No tenderness Musculoskeletal: No clubbing, No swelling, Tenderness (In the site of the vertebral fracture is minimal) Integumentary: No rashes, No cyanosis Neurological: Normal tone, Sensation intact, Cranial nerves 3-12 intact, Normal affect, Abnormal gait, Abnormal speech, Abnormal strength Lymphatics: No axilla or inguinal lymphadenopathy - Studies Laboratory Data (last 24 hrs) 10/07/19 21:25: PT 15.7 H, INR 1.35 10/07/19 21:25: WBC 8.6 D, Hgb 9.9 L, Hct 30.1 L, Plt Count 166 D 10/07/19 21:25: Sodium 135 L, Potassium 4.6, BUN 31 H, Creatinine 5.45 H* D, Glucose 108 H, Magnesium 2.2, Total Bilirubin 0.9, AST 12 L, ALT 18, Alkaline Phosphatase 157 H Assessment & Plan - Problems (Diagnosis) (1) Coronary artery disease Current Visit: Yes Status: Acute (2) End stage renal disease Onset Date: 03/22/18 Current Visit: No Status: Acute (3) Factor V Leiden Onset Date: 03/22/18 Current Visit: No Status: Acute (4) Hypertension Onset Date: 03/22/18 Current Visit: No Status: Acute (5) Type 2 diabetes mellitus Onset Date: 03/22/18 Current Visit: No Status: Acute - Plan Plan: 1. Pain control 2. Physical therapy consultation 3. Nephrology consultation 4. Case management evaluation for inpatient rehabilitation placement 5. Strict blood pressure and blood sugar control 6. Out of bed and ambulate twice daily and out of bed to a chair with each meal 7. Hemodialysis per Nephrology 8. GI and DVT prophylaxis Discharge Plan: Home Plan to discharge in: 48 Hours - Advance Directives Does patient have a Living Will: No Does patient have a Durable POA for Healthcare: No - Code Status/Comfort Care Code Status Assessed: Yes Code Status: Full Code Critical Care: No Time Spent Managing PTS Care (In Minutes): 45
[2019-10-08] MEDS ORDERED: HOME MED 1 EA UNK (Midodrine Hcl [Midodrine Hcl] 10 MG) PO SCH (08:45)
[2019-10-08] MEDS ORDERED: HOME MED 1 EA UNK (Linagliptin [Tradjenta] 5 MG) PO SCH (08:45)
[2019-10-08] MEDS ORDERED: methocarbamoL 500 MG TAB PO SCH (09:00)
--- NOTE | 2019-10-08 09:10 | RAD REPORT ---
EXAM DESCRIPTION: RAD - Pelvis - 10/07/2019 9:56 pm CLINICAL HISTORY: Trauma, pelvic pain COMPARISON: July 2008 pelvis, pelvis and hip examination September 30, 2019, left hip CT study Sep TECHNIQUE: AP imaging of the pelvis was obtained. FINDINGS: Lower lumbar fusion hardware in place. No acute SI joint abnormality seen. Degenerative ch anges are present. The SI joints are stable in appearance. Pubic symphysis is stable. No fracture of the pelvis or proximal femora seen. Overlying soft tissues limit detail. There is coarsened trabecula r pattern in the lower pelvis and bilateral femora that could indicate Paget's disease or a less like ly fibrous dysplasia. IMPRESSION: No fracture or other traumatic injury to the pelvis identifiable. Trabecular changes of the pelvis consistent with Paget's disease or less likely fibrous dysplasia.
--- NOTE | 2019-10-08 09:11 | RAD REPORT ---
EXAM DESCRIPTION: RAD - Hip Left 2 View - 10/07/2019 9:56 pm CLINICAL HISTORY: Trauma, hip pain COMPARISON: September 30 FINDINGS: AP and frogleg views of the left hip were obtained. There is no fracture or dislocation. N o acute or destructive bony process seen. Overlying pannus limits detail at the hip joint. Trabecular thickening changes are evident in the lower pelvis and proximal femur detailed on the pelv is examination. IMPRESSION: Negative left hip examination for acute or significant findings. Overlying pannus limits hip joint detail.
--- NOTE | 2019-10-08 09:12 | RAD REPORT ---
EXAM DESCRIPTION: RAD - Chest Single View - 10/07/2019 9:57 pm CLINICAL HISTORY: Cough, shortness of breath COMPARISON: May 2018 TECHNIQUE: AP portable chest image was obtained 2150 hours . FINDINGS: Interstitial pattern is prominent but unchanged. New the right-side double-lumen catheter has been placed. Heart and vasculature are normal. No measurable pleural effusion and no pneumothorax . No acute bony abnormality seen. No acute aortic findings suspected. IMPRESSION: Mildly prominent interstitial pattern similar to baseline.
[2019-10-08] MEDS: GABAPENTIN 300 MG CAP PO SCH ×2 (09:48→20:37)
[2019-10-08] MEDS ORDERED: MIDODRINE HCL 5 MG TABLET PO PRN (09:49)
[2019-10-08] MEDS: allopurinoL 100 MG TAB PO SCH (10:00)
[2019-10-08] MEDS: ESCITALOPRAM 20 MG TAB PO SCH (10:00)
--- NOTE | 2019-10-08 12:14 | P.PN ---
Subjective Date of Service: 10/08/19 Primary Care Provider: Dr. Borrego Chief Complaint: Patient unable to ambulate effectively Subjective: Improving Physical Examination - Vital Signs Temperature: 98.4 F Blood Pressure: 88/61 Pulse: 79 Respirations: 16 Pulse Ox (%): 100 - Physical Exam General: Alert, In no apparent distress, Cooperative HEENT: Atraumatic Neck: Supple Respiratory: Clear to auscultation bilaterally, Normal air movement Cardiovascular: Normal pulses, Regular rate/rhythm Gastrointestinal: Normal bowel sounds, Soft and benign, Non-distended Neurological: Normal speech, Normal strength at 5/5 x4 extr, Normal tone - Studies Laboratory Data (last 24 hrs) 10/07/19 21:25: PT 15.7 H, INR 1.35 10/07/19 21:25: WBC 8.6 D, Hgb 9.9 L, Hct 30.1 L, Plt Count 166 D 10/07/19 21:25: Sodium 135 L, Potassium 4.6, BUN 31 H, Creatinine 5.45 H* D, Glucose 108 H, Magnesium 2.2, Total Bilirubin 0.9, AST 12 L, ALT 18, Alkaline Phosphatase 157 H Medications List Reviewed: Yes Assessment & Plan Discharge Plan: Other ([facility] rehab versus skilled facility) Plan to discharge in: 48 Hours Physician Review Additional Text: Impression: Poor mobility with increase risk of fall Ileal psoas hematoma End-stage renal disease on hemodialysis Low blood pressure on midodrine Diabetes mellitus type 2 CAD Hypothyroidism Depression Plan: Poor mobility with increase risk of fall: Will have physical therapy assess ambulation. Patient had increase risk of fall at home. Will physical therapy assess ambulation. Will recommend rehab facility or skilled placement at discharge. Patient desires to go to [facility]. Will consult social work administrator. Ileal psoas hematoma: Patient had extensive workup at [facility] [place]. No intervention required. End-stage renal disease on hemodialysis: Will consult Nephrology to further evaluate and address. Low blood pressure on midodrine: Continue with medication. Diabetes mellitus type 2: Will provide Accu-Cheks and sliding scale. CAD: Restart home medication. Hypothyroidism: Continue with medication. Depression: Continue with medication. Time Spent Managing Pts Care (In Minutes): 55
[2019-10-08] MEDS ORDERED: GLUCAGON 1 MG/VIAL IM PRN (12:16)
[2019-10-08] MEDS ORDERED: D50W 25 GM/50 ML SYRINGE/VIAL IV PRN (12:16)
--- NOTE | 2019-10-08 14:00 | EKG ---
Test Date: 2019-10-07 Test Time: 20:00:33 Flame Planer: NADIA MEASUREMENT RESULTS: Intervals: Rate: 84 DC: 168 QRSD: 94 QT: 378 QTc: 446 Sproul: P: 40 DC: 168 QRS: 214 T: 56 INTERPRETIVE STATEMENTS: Normal sinus rhythm Low voltage QRS Lateral infarct, age undetermined Abnormal ECG Compared to ECG 05/22/2018 17:41:20 Low QRS voltage now present Myocardial infarct finding now present Electronically Signed On 10-08-19 13:58:58 [employer] by Osman Gaviria
[2019-10-08] MEDS: INSULIN -REGULAR HUMAN 50 UNIT/0.5 ML ML SQ SCH ×2 (16:30→20:56)
[2019-10-08] MEDS: HYDROCODONE/APAP 7.5/325 MG TAB PO PRN (18:14)
[2019-10-08] MEDS: TRAMADOL HCL 50 MG TAB PO PRN (20:37)
[2019-10-08] MEDS: methocarbamoL 500 MG TAB PO SCH (22:32)
[2019-10-09] MEDS: LEVOTHYROXINE SOD 0.075 MG TAB PO SCH (05:22)
[2019-10-09 06:02] LABS: Absolute Lymphocytes (CBC) 1.4 K/uL (0.7-4.9); Basophils % 0.8 % (0-1.3); Hematocrit 27.1 % (36.0-45.0); Lymphocytes % 15.5 % (15.3-44.8); RBC Red Blood Cell Count 2.89 M/uL (3.86-4.86)
[2019-10-09 06:28] LABS: Magnesium 2.4 mg/dL (1.8-2.4); Potassium 4.9 mmol/L (3.5-5.1)
[2019-10-09] MEDS: methocarbamoL 500 MG TAB PO SCH ×3 (06:47→23:04)
[2019-10-09] MEDS: INSULIN -REGULAR HUMAN 50 UNIT/0.5 ML ML SQ SCH ×4 (07:30→21:00)
[2019-10-09] MEDS ORDERED: NA CHLORIDE 0.9% 1,000 ML IV PRN (09:02)
[2019-10-09] MEDS ORDERED: MANNITOL 25% 12.5 GM/50 ML VIAL IV PRN (09:02)
[2019-10-09] MEDS ORDERED: EPOETIN ALFA 20,000 UNIT/1 ML VIAL SQ ONE (09:30)
[2019-10-09] MEDS: ESCITALOPRAM 20 MG TAB PO SCH (09:41)
[2019-10-09] MEDS: allopurinoL 100 MG TAB PO SCH (09:41)
[2019-10-09] MEDS: GABAPENTIN 300 MG CAP PO SCH ×2 (09:41→21:31)
[2019-10-09] MEDS ORDERED: ALBUMIN HUMAN 25% 50 ML IV SCH (10:00)
[2019-10-09 11:00] VITALS: O2SAT 92
--- NOTE | 2019-10-09 11:26 | P.PN ---
Subjective Date of Service: 10/09/19 Primary Care Provider: Dr. Borrego Chief Complaint: Patient unable to ambulate effectively Subjective: Doing well Physical Examination - Vital Signs Temperature: 99.4 F Blood Pressure: 98/63 Pulse: 69 Respirations: 17 Pulse Ox (%): 100 - Physical Exam General: Alert, In no apparent distress, Oriented x3, Cooperative HEENT: Atraumatic Neck: Supple Respiratory: Clear to auscultation bilaterally, Normal air movement Cardiovascular: Normal pulses, Regular rate/rhythm Gastrointestinal: Normal bowel sounds, Soft and benign, Non-distended, No tenderness, No masses, No rebound, No guarding Musculoskeletal: No contractures, No erythema, No tenderness, No warmth Integumentary: No erythema, No warmth, No cyanosis Neurological: Normal speech, Normal strength at 5/5 x4 extr, Normal tone, Normal affect - Studies Medications List Reviewed: Yes Assessment & Plan Discharge Plan: Other ([facility]) Physician Review Additional Text: Impression: Poor mobility with increase risk of fall Ileal psoas hematoma End-stage renal disease on hemodialysis Low blood pressure on midodrine Diabetes mellitus type 2 CAD Hypothyroidism Depression Plan: Poor mobility with increase risk of fall: Will have physical therapy assess ambulation. Patient had increase risk of fall at home. Will recommend rehab facility or skilled placement at discharge. Patient desires to go to [facility] Will consult social work therapist. DC to inpatient rehab once approved. Ileal psoas hematoma: Patient had extensive workup [place] [facility] [place] No intervention required. End-stage renal disease on hemodialysis: Will consult Nephrology to further evaluate and address. Low blood pressure on midodrine: Continue with medication. Diabetes mellitus type 2: Will provide Accu-Cheks and sliding scale. CAD: Continue home medication. Hypothyroidism: Continue with medication. Depression: Continue with medication. Time Spent Managing Pts Care (In Minutes): 55
[2019-10-09] MEDS: HYDROCODONE/APAP 7.5/325 MG TAB PO PRN (11:45)
--- NOTE | 2019-10-09 14:47 | P.CNS ---
Date of Consult: 10/09/19 Reason for Consult: ESRD Requesting Physician: Celestine Hickman Primary Care Provider: Dr. Borrego Chief Complaint: Patient unable to ambulate effectively History of Present Illness: 64 yo WF HTN presented to the ER with moderate, progressive RLE hip and leg pain with associated weakness. No alleviating fx. Fall risk. Unable to ambulate. Patient is a 64-year-old female with numerous medical issues including end- stage renal disease, coronary artery disease, recent fall with ileopsoas hematoma, who comes in with inability to ambulate since discharge from [facility]. Patient was to have hemodialysis appointment time scheduled so the family could transport her to the dialysis center. Patient was also supposed to work with physical therapy but she was having too much pain. They went ahead and called EMS and the ambulance brought patient home. Home health came out as assess the patient in the morning today and they felt like it imperative that patient have EMS notify so they can assist and assigning bed. Clinically, patient is doing well with no other complaints. Allergies No Known Allergies Allergy (Verified 03/22/18 01:54) Home medications list reviewed: Yes Home Medications: Escitalopram Oxalate [Lexapro] 20 mg PO DAILY 05/03/12 Apixaban [Eliquis *] 1 tab PO DAILY 03/22/18 Gabapentin [Neurontin*] 300 mg PO BID 03/22/18 Levothyroxine [Synthroid] 150 mcg PO [id number] 03/22/18 allopurinoL [Allopurinol] 100 mg PO DAILY 03/22/18 Linagliptin [Tradjenta] 5 mg PO ONCE 10/08/19 Midodrine HCl 10 mg PO PRN 10/08/19 clonazePAM [Clonazepam] 0.5 mg PO BID PRN 10/08/19 methocarbamoL [Methocarbamol] 2 tab PO Q8HP 10/08/19 - Past Medical/Surgical History Diabetic: Yes -: HD -: NIDDM -: HTN -: Gout -: Hypothyroid -: Peripheral neuropathy -: BLE DVT 2010 and 2011 -: Renal Disease -: Thyroidectomy -: Choleycystectomy -: Carpal Tunnel -: Laminectomy -: Umbilical Hernia repair x2 -: Partial COlectomy- Bladder repair for rectovesical fistula -: Colostomy (and reversal) -: Spinal FUsion, Heel spurs BLE - Family History Mother Medical History: Heart disease, Hypertension, Diabetes, Kidney disease Sister Medical History: Hypertension - Social History Smoking Status: Never smoker Alcohol use: No CD- Drugs: No Caffeine use: Yes Review of Systems 10-point ROS is otherwise unremarkable General: Weakness, Malaise Respiratory: SOB with Excertion Musculoskeletal: Back Pain, Leg Pain Neurological: Weakness, Incoordination Physical Examination Temp Pulse Resp BP Pulse Ox 98.3 F 96 H 20 109/60 94 10/09/19 12:00 10/09/19 12:00 10/09/19 12:00 10/09/19 12:10/09/19 12:00 General: Alert, Oriented x3, Cooperative HEENT: Atraumatic Neck: Supple Respiratory: Clear to auscultation bilaterally Cardiovascular: Regular rate/rhythm, Edema Gastrointestinal: Soft and benign, Non-distended Musculoskeletal: No clubbing, No contractures Integumentary: No rashes, No cyanosis Neurological: Normal speech Blood work reviewed in the chart. Imagings Data: EXAM DESCRIPTION: RAD - Chest Single View - 10/07/2019 9:57 pm CLINICAL HISTORY: Cough, shortness of breath COMPARISON: May 2018 TECHNIQUE: AP portable chest image was obtained 2150 hours . FINDINGS: Interstitial pattern is prominent but unchanged. New the right-side double-lumen catheter has been placed. Heart and vasculature are normal. No measurable pleural effusion and no pneumothorax. No acute bony abnormality seen. No acute aortic findings suspected. IMPRESSION: Mildly prominent interstitial pattern similar to baseline. EXAM DESCRIPTION: RAD - Hip Left 2 View - 10/07/2019 9:56 pm CLINICAL HISTORY: Trauma, hip pain COMPARISON: September 30 FINDINGS: AP and frogleg views of the left hip were obtained. There is no fracture or dislocation. No acute or destructive bony process seen. Overlying pannus limits detail at the hip joint. Trabecular thickening changes are evident in the lower pelvis and proximal femur detailed on the pelvis examination. IMPRESSION: Negative left hip examination for acute or significant findings. Overlying pannus limits hip joint detail. Conclusions/Impression: A/ ESRD on HD MWF Hyponatremia HTN with CKD/ CHF. Diastolic CHF, chronic. DM II with CKD. LINDSEY/ Secondary HyperPTH Anemia in CKD. Right Hip Pain with RLE weakness. CLBP in the setting of Lumbar spondylosis with myelopathy. P/ Continue current POC and Medications. Arrange for acute HD today. Restart home medications as indicated. PT as tolerated. No NSAIDs. AM labs. Daily weight. Thank you kindly for the consultation. Plan for rehab placement. Critical Care: No
[2019-10-09] MEDS: TRAMADOL HCL 50 MG TAB PO PRN ×2 (16:13→22:10)
[2019-10-10] MEDS: LEVOTHYROXINE SOD 0.075 MG TAB PO SCH (05:21)
[2019-10-10] MEDS: TRAMADOL HCL 50 MG TAB PO PRN (05:21)
[2019-10-10 05:41] LABS: Absolute Lymphocytes (CBC) 1.4 K/uL (0.7-4.9); Basophils % 0.4 % (0-1.3); Hematocrit 26.9 % (36.0-45.0); Lymphocytes % 14.5 % (15.3-44.8); MPV 9.2 fL (7.6-11.3); RBC Red Blood Cell Count 2.85 M/uL (3.86-4.86)
[2019-10-10 05:49] LABS: Magnesium 2.2 mg/dL (1.8-2.4); Potassium 4.3 mmol/L (3.5-5.1)
[2019-10-10] MEDS: INSULIN -REGULAR HUMAN 50 UNIT/0.5 ML ML SQ SCH ×2 (07:30→11:30)
[2019-10-10] MEDS: methocarbamoL 500 MG TAB PO SCH ×2 (07:42→13:11)
[2019-10-10] MEDS: allopurinoL 100 MG TAB PO SCH (08:21)
[2019-10-10] MEDS: ESCITALOPRAM 20 MG TAB PO SCH (08:21)
[2019-10-10] MEDS: GABAPENTIN 300 MG CAP PO SCH (08:22)
--- NOTE | 2019-10-10 11:48 | P.DS ---
Admission Date: 10/07/19 Discharge Date: 10/10/19 Primary Care Provider: Dr. Borrego Disposition: TRANSFR TO OTHER-PSY/CD/REHAB Discharge Condition: GOOD Reason for Admission: Patient unable to ambulate effectively Consultations: Nephrology-Dr. Borrego Procedures: Pelvis Xray: COMPARISON: July 2008 pelvis, pelvis and hip examination September 30, 2019, left hip CT study September 30, 2019 TECHNIQUE: AP imaging of the pelvis was obtained. FINDINGS: Lower lumbar fusion hardware in place. No acute SI joint abnormality seen. Degenerative changes are present. The SI joints are stable in appearance. Pubic symphysis is stable. No fracture of the pelvis or proximal femora seen. Overlying soft tissues limit detail. There is coarsened trabecular pattern in the lower pelvis and bilateral femora that could indicate Paget's disease or a less likely fibrous dysplasia. IMPRESSION: No fracture or other traumatic injury to the pelvis identifiable. Trabecular changes of the pelvis consistent with Paget's disease or less likely fibrous dysplasia. Hip Xray: COMPARISON: September 30 FINDINGS: AP and frogleg views of the left hip were obtained. There is no fracture or dislocation. No acute or destructive bony process seen. Overlying pannus limits detail at the hip joint. Trabecular thickening changes are evident in the lower pelvis and proximal femur detailed on the pelvis examination. IMPRESSION: Negative left hip examination for acute or significant findings. Overlying pannus limits hip joint detail. Medical Problem List: Poor mobility with increase risk of fall Ileopsoas hematoma End-stage renal disease on hemodialysis Low blood pressure on midodrine Diabetes mellitus type 2 CAD Hypothyroidism Depression Factor 5 Leiden on chronic anti coagulation therapy Brief History of Present Illness: 64-year-old female with multiple medical issues including end-stage renal disease on hemodialysis and recent fall with ileo psoas hematoma. Patient had been discharged from [facility] for workup of the hematoma. No intervention was required. Her mobility has been compromised since the discharge. Patient was brought to the ER due to poor mobility. Patient was admitted for further evaluation. Hospital Course: Patient presented with poor mobility. Patient was recently discharge from [facility] after workup of ileopsoas hematoma. No intervention was required. Patient was admitted for further evaluation. X-ray shows no fracture. Patient requested inpatient rehab. Patient has been working with physical therapy. At discharge patient was accepted to inpatient rehab. She will continue with inpatient rehab to further increase her mobility. Patient will continue with Neurontin 300 mg twice daily. Patient may continue with tramadol 50 mg 3 times a day as needed for pain. Patient is taking Robaxin every 8 hr as needed for muscle spasm. Patient with underlying end-stage renal disease on hemodialysis. She will continue with dialysis as directed. Patient with history of hypotension. Currently on midodrine 10 mg 3 times a day as needed for low blood pressure.. Patient with diabetes mellitus type 2. Patient will continue with her current medications Tradjenta 5 mg daily. Patient with hypothyroidism. At discharge she will continue with levothyroxine 150 mcg daily. Patient with depression. At discharge she will continue with her medication Lexapro 20 mg daily and clonazepam 0.5 mg twice daily as needed for anxiety. Patient with history of factor 5 Leiden. Patient will continue with Eliquis 2.5 mg daily. Vital Signs/Physical Exam: Temp Pulse Resp BP Pulse Ox 98.6 F 85 18 101/56 L 90 L 10/10/19 08:00 10/10/19 08:00 10/10/19 08:00 10/10/19 08:00 10/10/19 08:00 General: Alert, In no apparent distress, Oriented x3, Cooperative HEENT: Atraumatic Neck: Supple Respiratory: Clear to auscultation bilaterally, Normal air movement Cardiovascular: Normal pulses, Regular rate/rhythm Gastrointestinal: Normal bowel sounds, Soft and benign, Non-distended Integumentary: No warmth Neurological: Normal speech, Normal strength at 5/5 x4 extr, Normal tone, Normal affect Laboratory Data at Discharge: WBC 9.6 K/uL (4.3-10.9) 10/10/19 05:04 Hgb 9.1 g/dL (12.0-15.0) L 10/10/19 05:04 Hct 26.9 % (36.0-45.0) L 10/10/19 05:04 Plt Count 185 K/uL (152-406) 10/10/19 05:04 PT 15.7 SECONDS (9.5-12.5) H 10/07/19 21:25 INR 1.35 10/07/19 21:25 Sodium 135 mmol/L (136-145) L 10/10/19 05:04 Potassium 4.3 mmol/L (3.5-5.1) 10/10/19 05:04 BUN 25 mg/dL (7-18) H D 10/10/19 05:04 Creatinine 5.02 mg/dL (0.55-1.3) H* D 10/10/19 05:04 Glucose 106 mg/dL (74-106) 10/10/19 05:04 Magnesium 2.2 mg/dL (1.8-2.4) 10/10/19 05:04 Total Bilirubin 0.8 mg/dL (0.2-1.0) 10/08/19 05:07 AST 9 U/L (15-37) L 10/08/19 05:07 ALT 16 U/L (12-78) 10/08/19 05:07 Alkaline Phosphatase 147 U/L (45-117) H 10/08/19 05:07 Home Medications: Escitalopram Oxalate [Lexapro] 20 mg PO DAILY 05/03/12 Apixaban [Eliquis *] 1 tab PO DAILY 03/22/18 Gabapentin [Neurontin*] 300 mg PO BID 03/22/18 Levothyroxine [Synthroid*] 150 mcg PO [id number] 03/22/18 allopurinoL [Allopurinol] 100 mg PO DAILY 03/22/18 Linagliptin [Tradjenta] 5 mg PO ONCE 10/08/19 Midodrine HCl 10 mg PO PRN 10/08/19 clonazePAM [Clonazepam] 0.5 mg PO BID PRN 10/08/19 methocarbamoL [Methocarbamol] 2 tab PO Q8HP 10/08/19 Patient Discharge Instructions: 1. Patient be transferred to inpatient rehab- [facility]. 2. Patient presented with poor mobility. Patient was recently discharge from [facility] after workup of ileopsoas hematoma. No intervention was required. Patient was admitted for further evaluation. X- ray shows no fracture. Patient requested inpatient rehab. Patient has been working with physical therapy. At discharge patient was accepted to inpatient rehab. She will continue with inpatient rehab to further increase her mobility. Patient will continue with Neurontin 300 mg twice daily. Patient may continue with tramadol 50 mg 3 times a day as needed for pain. Patient is taking Robaxin every 8 hr as needed for muscle spasm. 3. Patient with underlying end-stage renal disease on hemodialysis. She will continue with dialysis as directed. 4. Patient with history of hypotension. Currently on midodrine 10 mg 3 times a day as needed for low blood pressure.. 5. Patient with diabetes mellitus type 2. Patient will continue with her current medications Tradjenta 5 mg daily. 6. Patient with hypothyroidism. At discharge she will continue with levothyroxine 150 mcg daily. 7. Patient with depression. At discharge she will continue with her medication Lexapro 20 mg daily and clonazepam 0.5 mg twice daily as needed for anxiety. 8. Patient with history of factor 5 Leiden. Patient will continue with Eliquis 2.5 mg daily. Diet: Renal Activity: Fall precautions Time spent managing pt's care (in minutes): 55
[2019-10-10 12:51] VITALS: BP 114/57; TEMP 97.8
--- NOTE | 2019-10-10 20:44 | P.PN ---
Date of Service: 10/10/19 Vital Signs Temp Pulse Resp BP Pulse Ox 97.8 F 96 H 18 114/57 L 92 10/10/19 12:00 10/10/19 12:00 10/10/19 13:11 10/10/19 12:00 10/10/19 13:11 Assessment/ Plan: Nephrology CPS stable without CP or SOB. No acute events overnight. Vitals, medications, blood work and imaging reviewed in the chart. General: Alert, Oriented x3, Cooperative HEENT: Atraumatic Neck: Supple Respiratory: Clear to auscultation bilaterally Cardiovascular: Regular rate/rhythm, Edema Gastrointestinal: Soft and benign, Non-distended Musculoskeletal: No clubbing, No contractures Integumentary: No rashes, No cyanosis Neurological: Normal speech Blood work reviewed in the chart. Imagings Data: EXAM DESCRIPTION: RAD - Chest Single View - 10/07/2019 9:57 pm CLINICAL HISTORY: Cough, shortness of breath COMPARISON: May 2018 TECHNIQUE: AP portable chest image was obtained 2150 hours . FINDINGS: Interstitial pattern is prominent but unchanged. New the right-side double-lumen catheter has been placed. Heart and vasculature are normal. No measurable pleural effusion and no pneumothorax. No acute bony abnormality seen. No acute aortic findings suspected. IMPRESSION: Mildly prominent interstitial pattern similar to baseline. EXAM DESCRIPTION: RAD - Hip Left 2 View - 10/07/2019 9:56 pm CLINICAL HISTORY: Trauma, hip pain COMPARISON: September 30 FINDINGS: AP and frogleg views of the left hip were obtained. There is no fracture or dislocation. No acute or destructive bony process seen. Overlying pannus limits detail at the hip joint. Trabecular thickening changes are evident in the lower pelvis and proximal femur detailed on the pelvis examination. IMPRESSION: Negative left hip examination for acute or significant findings. Overlying pannus limits hip joint detail. Conclusions/Impression: A/ ESRD on HD MWF Hyponatremia HTN with CKD/ CHF. Diastolic CHF, chronic. DM II with CKD. LINDSEY/ Secondary HyperPTH Anemia in CKD. Right Hip Pain with RLE weakness. CLBP in the setting of Lumbar spondylosis with myelopathy. P/ Continue current POC and Medications. HD TIW. PT as tolerated. No NSAIDs. AM labs PRN. Daily weight.
== END 2019-10-10 13:48 | disposition short-term general hospital (02) ==
LOC: ER 17:37 → ERHOLD 22:01 → 2ND 10-08 13:14
PROVIDERS: ADMIT Hospitalist; ATTEND Hospitalist
PROC: 5A1D70Z Performance of Urinary Filtration, Intermittent, Less than 6 Hours Per Day (ICD-10-PCS; principal; 2019-10-09)
DX: R53.1 Weakness (principal); S30.1XXA Contusion of abdominal wall, initial encounter; E03.9 Hypothyroidism, unspecified; M10.9 Gout, unspecified; D68.51 Activated protein C resistance; I25.10 Atherosclerotic heart disease of native coronary artery without angina pectoris; I95.9 Hypotension, unspecified; F32.9 Major depressive disorder, single episode, unspecified; E87.1 Hypo-osmolality and hyponatremia; I13.2 Hypertensive heart and chronic kidney disease with heart failure and with stage 5 chronic kidney disease, or end stage renal disease; E11.22 Type 2 diabetes mellitus with diabetic chronic kidney disease; N18.6 End stage renal disease; I50.32 Chronic diastolic (congestive) heart failure; Z99.2 Dependence on renal dialysis; Z86.718 Personal history of other venous thrombosis and embolism
CPT/HCPCS: 93005; 85025 ×4; 80048 ×3; 36415 ×3; 83735 ×3; 85610; 82947 ×9; 80076; 84484; 80053; 83880; 71045; 72170; 73502; 97110 ×2; 97112; 97116; 97161; 97530 ×2; 99285; 90935; Q4081; J1644 ×2; G0378 ×4; J2405; G0257

== ENCOUNTER 2019-12-11 15:26 | Emergency (ER) | payer OTHER ==
--- OUTSIDE RECORDS SUMMARY | 2019-12-11 15:28 | XMS REPORT ---
:1955 Author Organization [employer] Care Team Providers Name Role Phone Garret Stearns Provider Role Unavailable Allergies No Known Allergies Problems No Known Problems Medications Medication Code Code Instructions Start End Date Status Dosage System Date Tramadol HCl [facility] 83324136580 50 MG Orally Jun 28, Active 1 tablet every 6 hrs 2017 as needed Results No Known Results Summary Purpose eClinicalWorks Submission
--- OUTSIDE RECORDS SUMMARY | 2019-12-11 15:28 | XMS REPORT ---
[...] End Status Dosage System Date Date Levofloxacin [facility] 33646512837 500 MG Oral Active not defined Gabapentin [facility] 68202294553 100 MG Oral Active not defined Clonazepam [facility] 32867219969 0.5 MG Oral Active (Schedule IV Drug) Metolazone [facility] 97125416280 5 MG Oral Active not defined Furosemide [facility] 83937574743 80 MG Oral Active not defined Allopurinol [facility] 78406310969 100 MG Oral Active not defined Vancomycin HCl [facility] 72424505966 1000 MG Active not Intravenous defined Colchicine [facility] 26009451640 0.6 MG Orally Active 1 tablet Once a day Escitalopram [facility] 90973398966 20 MG Oral Active not Oxalate defined Eliquis [facility] 56430811870 5 MG Oral Active not defined Tramadol HCl [facility] 87933646318 50 MG Oral Active (Schedule IV Drug) Results No Known Results Summary Purpose eClinicalWorks Submission
--- OUTSIDE RECORDS SUMMARY | 2019-12-11 15:28 | XMS REPORT ---
:1955 [facility] Address [address] [place] [address] Care Team Providers Name Role Phone Unavailable Unavailable Unavailable Payers Payer Name Policy Type Policy Number Effective Date Expiration Date Problems This patient has no known problems. Allergies, Adverse Reactions, Alerts Allergy Allergy Status Severity Reaction(s) Onset Inactive Treating Comments Name Type Date Date Clinician No Known DA Active U 2019-04 00:00:0 0 Medications This patient has no known medications. Procedures and Interventions Procedure Date / Time Performed Performing Clinician 1H3I16P 2019-11-27 00:00:00 0N4E93V 2019-11-27 00:00:00 8Z9S04I 2019-11-27 00:00:00 2X2J22D 2019-11-27 00:00:00 4V0F78R 2019-11-27 00:00:00 5A4L04P 2019-10-11 00:00:00 5L0P90B 2019-10-11 00:00:00 8Z6O23L 2019-10-11 00:00:00 3D5P12M 2019-10-11 00:00:00 0U0K36J 2019-10-11 00:00:00 6H6Z63J 2019-10-11 00:00:00 9R0G47I 2019-10-11 00:00:00 6T2E08F 2019-10-11 00:00:00 1A7O02E 2019-10-11 00:00:00 6C3G89I 2019-10-11 00:00:00 6K6L12N 2019-10-11 00:00:00 3G0L63O 2019-10-11 00:00:00 7F6Y94V 2019-10-11 00:00:00 9D0M01G 2019-10-11 00:00:00 7Y1A01B 2019-10-11 00:00:00 8Y3L75H 2019-10-11 00:00:00 2H6M53Y 2019-10-11 00:00:00 0N8W85T 2019-10-11 00:00:00 2P5T51P 2019-10-11 00:00:00 3Z9J23L 2019-10-11 00:00:00 0T5N12Y 2019-10-11 00:00:00 2D9W70W 2019-10-11 00:00:00 3N8C80X 2019-10-11 00:00:00 Encounters Start End Encounter Admission Attending Care Care Encounter Date/Time Date/Time Type Type Clinicians Facility Department ID 2019-11-15 Inpatient [facility] ED [id number] 06:09:00 2019-10-01 Inpatient U [facility] ED 0011 01:07:00 2018-12-20 Inpatient E [facility] [id number] 05:54:00 2019-07-26 2019-07-24 Inpatient U [facility] [id number] 11:35:00 12:26:00 2019-05-30 2019-05-[address] [id number] 10:24:00 10:24:00 2019-01-25 2019-01-25 Outpatient [facility] [id number] 05:46:00 05:46:00 2019-01-02 2019-01-02 Outpatient [facility] [id number] 06:15:00 06:15:00 2018-12-28 2018-12-28 Outpatient [facility] [id number] 14:09:00 14:09:00 Results Test Description [...] PHOSPHATASE (test 101 U/L 32-104 code=ALKP) PROTHROMBIN [id number] 08:01:00 Test Item Value Reference Range Comments [...] heart valves; 2.5-3.5recurrent systemic embolism. THROMBOPLASTIN TIME [id number] 08:01:00 Test Item Value Reference Range Comments THROMBOPLASTIN TIME PARTIAL 32.1 SECONDS 26.0-35.9 INTERPRETATIVE (test code=PTT) DATA:Therapeutic range: Unfractionated heparin:47 - 71 seconds Argatroban:1.5 to 3 times the baseline PTT COMPREHENSIVE METABOLIC [id number] 07:55:00 Test Item Value Reference Range Comments [...] 101 U/L 32-104 code=ALKP) HGBA1C - GLYCOSYLATED [id number] 07:52:00 Test Item Value Reference Range Comments GLYCOSYLATED HEMOGLOBIN (HA1C) 6.1 % 0.0-5.6 INTERPRETATIVE DATA:HGBA1C (test code=GLYHGB) levels above the established reference range are anindication of hyperglycemia during the preceeding 2 - 3months orlonger. HBA1C levels may reach 20% or higher in poorlycontrolled diabetes. Therapeutic action is suggested atlevels above 8%.Diabetic patients with HBA1C levels below 7% meet the goalof the [place] [employer]. Normal: <5.7Pre-Diabetes: 5.7 6.4Diabetic: >6.5Therapeutic goal for glycemic control: <7.0 CBC W/AUTO [id number] 07:45:00 Test Item Value Reference Range Comments [...]
--- OUTSIDE RECORDS SUMMARY | 2019-12-11 15:30 | XMS REPORT | Summary of Care ---
:1955 Author Name CALDERON Thompson, AMY Address Unavailable Unavailable , Care Team Providers Name Role Phone RICARDO Thompson, DORINDA Unavailable Unavailable CALDERON Thompson, AMY Unavailable Unavailable JANELL Thompson, LIVAN Unavailable Unavailable LOLITA Thompson, RIZWAN Unavailable Unavailable NAVIN Thompson, RADHA Unavailable Unavailable EMELI Thompson, MARLYS Unavailable Unavailable JANELL GREENE, LIVAN Unavailable Unavailable TRI GREENE [place], POVARSHA Unavailable Unavailable CALDERON GREENE, AMY Unavailable Unavailable JOANN GREENE [place], MARYBETH M Unavailable Unavailable Mary GREENE, Lanre Unavailable Unavailable MAXIMO GREENE, SIXTO Jansen Unavailable Unavailable Buster Galdamez MD Unavailable Unavailable RICARDO GREENE, DORINDA Royal Unavailable Unavailable Belen GREENE, Dio Unavailable Unavailable FARHAT GREENE, KRYSTAL K Unavailable Unavailable LOLITA GREENE [place], RIZWAN Unavailable Unavailable GINNY GREENE, JHONATAN Unavailable [...] 1 TABLET DAILY. Quantity: 90 Refills: 3 LOLITA Thompson RIZWAN Start : 01-May-2019 Active clonazePAM 0.5 MG Oral Tablet Take 0.5 mg in the morning and 1 mg at bedtime Quantity: 90 Refills: 4 LOLITA Thompson, RIZWAN Start : 01-May-2019 Active Gabapentin 300 MG Oral Capsule TAKE 1 CAPSULE TWICE DAILY. Quantity: 180 Refills: 3 LOLITA Thompson, RIZWAN Start : 01-May-2019 Active Allopurinol 100 [...] surgery Quantity: 6 Refills: 0 ANDRASSY M.James, ODRINDA Start : 25-Jul-2019 Active clonazePAM 1 MG [...] Dates Details XRAY Ankle 3 views Bilateral 77063 Date: 28-Sep-2019 XRAY Foot 3 views Bilateral 88427 Date: 28-Sep-2019 XRAY Toe 89142 Date: 28-Sep-2019 History of Thyroid Surgery Substernal [...] Quadrivalent 0.5 ML Intramuscular Suspension on: May-2018 Fluzone High-Dose 0.5 ML Intramuscular Suspension Prefilled Syringe on: 2018 Family History Name Dates Details Family history [...] smoker Vital Signs Date Test Result Details :48 Physical Findings 0 Status: Comments: PHQ-9 Adult Depression Screening Physical Findings 0 Status: Comments: Alcohol Screen - How many times in the past yr have you had 5 (for M) or 4 (for F) or 4 (for all > 65yrs) or more drinks in a day? :47 BP Systolic 102 mm[Hg] Status: Comments: Location: E; Position: Sitting BP Diastolic 68 mm[Hg] Status: Comments: Location: E; Position: Sitting Height 60 in Status: Weight 210.375 lb Status: Body Mass Index Calculated 41.09 kg/m2 Status: Body Surface Area Calculated 1.91 m2 Status: Temperature 97.4 f Status: Comments: Method: Oral Heart Rate 93 /min Status: Comments: Location: L Brachial Artery; Quality: Normal Respiration Rate 14 /min Status: Comments: Quality: Normal Results Date Description Value Details Results not documented Plan of Care Name Dates Details Planned Observations Planned Goals not documented Planned Encounters Appointment; SIXTO MARSH M.D. On: 31-Oct-2019 14:00 Appointment; RIZWAN MCHUGH M.D. On: 10-Nov-2019 15:30 Appointment; KRYSTAL DOUGHERTY M.D. On: 15-Nov-2019 7:30 Appointment; DORINDA SILVA M.D. On: 15-Nov-2019 8:00 Appointment; PEGGY JIMENEZ M.D. On: 05-Mar-2020 10:20 Instructions Name Dates Details Instructions not documented Encounters Appointment; MARYBETH DAVID M.D. On: 06-Dec-2017 10:45 [...] 13:00 Encounter Diagnosis: Problem not documented Appointment; [facility] On: 17-Jun-2018 10:00 Encounter Diagnosis: [...] Encounter Diagnosis: Problem not documented Appointment; DORINDA SILAV M.D. On: 17-Jul-2019 14:00 Encounter Diagnosis: Problem not documented Appointment; [facility] On: 21-Jul-2019 10:00 Encounter Diagnosis: Problem [...] 28-Sep-2019 15:30 Encounter Diagnosis: Problem not documented Appointment; PEGGY JIMENEZ M.D. On: 10-Oct-2019 11:20 Encounter Diagnosis: Problem not documented Appointment; SIXTO MARSH M.D. On: 10-Oct-2019 14:00 Encounter Diagnosis: Problem not documented Appointment; AMY MANCERA M.D. On: 31-Oct-2019 9:30 Encounter Diagnosis: Problem not documented
--- OUTSIDE RECORDS SUMMARY | 2019-12-11 15:30 | XMS REPORT | Summary of Care ---
:1955 Author Name CALDERON Thompson, AMY Address Unavailable Unavailable , Care Team Providers Name Role Phone RICARDO Thompson, DORINDA Unavailable Unavailable CALDERON Thompson, AMY Unavailable Unavailable JANELL Thompson, LIVAN Unavailable Unavailable LOLITA Thompson, RIZWAN Unavailable Unavailable NAVIN Thompson, RADHA Unavailable Unavailable EMELI Thompson, MARLYS Unavailable Unavailable JANELL GREENE, LIVAN Unavailable Unavailable TRI GREENE [place], POVARSHA Unavailable Unavailable CALDERON GREENE, AMY Unavailable Unavailable JOANN GREENE [place], MARYBETH M Unavailable Unavailable Mary GREENE, Lanre [...] Active Hypothyroidism, postsurgical (244.0, E89.0) Status: Active Hematoma of hip (924.01, S70.00XA) Status: Active 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 Start : 25-Jul-2019 Active Neomycin Sulfate 500 MG Oral Tablet TAKE 2 TABLET Other Take 1gm (2 Tabs) at 1100, 1300, 2200 day before surgery Quantity: 6 Refills: 0 DORINDA SILVA M.D. Start : 25-Jul-2019 Active clonazePAM 1 MG [...] goiter (V12.29, Z86.39) Status: Resolved History of Cleeste thyroiditis (V12.29, Z86.39) Status: Resolved History of hypertension (V12.59, Z86.79) Status: Resolved History of urinary tract infection (V13.02, Z87.440) Status: Resolved History of urinary tract infection (V13.02, Z87.440) Status: Resolved Procedures Procedure Dates Details [QLH] TSH, 3RD GENERATION Date: 31-Oct-2019 XRAY Ankle 3 views Bilateral 55923 Date: 28-Sep-2019 XRAY Foot 3 views Bilateral 21778 Date: 28-Sep-2019 XRAY Toe 07373 Date: 28-Sep-2019 History of Thyroid Surgery Substernal [...] BP Systolic 102 mm[Hg] Status: Comments: Location: LUE; Position: Sitting BP Diastolic 68 mm[Hg] Status: Comments: Location: LUE; Position: Sitting Height 60 in Status: Weight [...] Planned Goals not documented Planned Encounters Appointment; RIZWAN MCHUGH M.D. On: 10-Nov-2019 15:30 Appointment; KRYSTAL DOUGHERTY M.D. On: 15-Nov-2019 7:30 Appointment; DORINDA SILVA M.D. On: 15-Nov-2019 8:00 Appointment; AMY MANCERA M.D. On: 07-Dec-2019 16:00 Appointment; PEGGY JIMENEZ M.D. On: 05-Mar-2020 10:20 Interventions Provided Labs/Procedures/Imaging[[facility]] TSH, 3RD GENERATION; To Be Done: 31 Oct 2019PlanMs. Pritchard is a 64 yo F with factor V leiden deficiency on eliquis, ESRD on HD and T2DM, endocarditis and enterocutaneous fistula awaiting surgical repair presents today for hypothyroidismhypothyroidism- TSH improved- will continue current dose- recheck TSH if still improving will keep patient at 125mcg however if does not improve will increase to 150mcgL hip hematoma- s/p hospitalization and rehab- currently still working with PT- Patient to see hematolgy per discharge summaryEnterocutaneous fistula- awaiting repair Instructions Name Dates Details Instructions not documented [...] 13:00 Encounter Diagnosis: Problem not documented Appointment; [facility] On: 17-Jun-2018 10:00 Encounter Diagnosis: Problem not [...]
--- OUTSIDE RECORDS SUMMARY | 2019-12-11 15:31 | XMS REPORT | Summary of Care ---
:1955 Author Name CALDERON Thompson, AMY Address Unavailable Unavailable , Care Team Providers Name Role Phone RICARDO Thompson, DORINDA Unavailable Unavailable CALDERON Thompson, AMY Unavailable Unavailable JANELL Thompson, LIVAN Unavailable Unavailable LOLITA Thompson, RIZWAN Unavailable Unavailable NAVIN Thompson, RADHA Unavailable Unavailable EMELI Thompson, MARLYS Unavailable Unavailable JANELL GREENE, LIVAN Unavailable Unavailable TRI GREENE [place], POVARSHA Unavailable Unavailable CALDERON GREENE, AMY Unavailable Unavailable JOANN GREENE [place], MARYBETH M Unavailable Unavailable Mary GREENE, Lanre [...] Active Medications Name Dates Details Levothyroxine Sodium 150 MCG Oral Tablet TAKE 1 TABLET DAILY. Quantity: 90 Refills: 0 AMY MANCERA M.D. Start : 28-Feb-2015 Active Colchicine-Probenecid 0.5-500 MG Oral Tablet TAKE 1 [...] 12 HOURS NEEDED. Quantity: 60 Refills: 3 LOLITA Thompson, RIZWAN Start : 11-Aug-2019 Active Allergies and Adverse [...] Dates Details XRAY Ankle 3 views Bilateral 84220 Date: 28-Sep-2019 XRAY Foot 3 views Bilateral 45418 Date: 28-Sep-2019 XRAY Toe 93624 Date: 28-Sep-2019 History of Thyroid Surgery Substernal [...] smoker Vital Signs Date Test Result Details :45 BP Systolic 90 mm[Hg] Status: BP Diastolic 51 mm[Hg] Status: Height 60 in Status: Body Mass Index Calculated 41.1 kg/m2 Status: Body Surface Area Calculated 1.91 m2 Status: Weight 210.4375 lb Status: Temperature 97.7 f Status: Comments: Method: Oral Heart Rate 74 /min Status: O2 SAT 96 % Status: :48 Physical Findings 0 Status: Comments: PHQ-9 [...] LUE; Position: Sitting Height 60 in Status: Body Mass Index Calculated 41.09 kg/m2 Status: Body Surface Area Calculated 1.91 m2 Status: Weight 210.375 lb Status: Temperature 97.4 f Status: Comments: Method: Oral Heart Rate 93 /min Status: Comments: Location: L Brachial Artery; Respiration Rate 14 /min Status: Comments: Quality: Normal Results Date Description Value Details [id number] [QLH] TSH, 3RD GENERATION TSH 12.500 {uIU/ml} (Above high threshold) Range: 0.360-3.740 Plan of Care Name Dates Details Planned Observations Planned Goals not documented Planned Encounters Appointment; RIZWAN MCHUGH M.D. On: 10-Nov-2019 15:30 Appointment; KRYSTAL DOUGHERTY M.D. On: 15-Nov-2019 7:30 Appointment; DORINDA SILVA M.D. On: 15-Nov-2019 8:00 Appointment; AMY MANCERA M.D. On: 07-Dec-2019 16:00 Appointment; PEGGY JIMENEZ M.D. On: 05-Mar-2020 10:20 Appointment; SIXTO MARSH M.D. On: 07-May-2020 13:30 Interventions Provided Medication ChangesLevothyroxine Sodium 150 MCG Oral Tablet - Renew Instructions Name Dates Details Instructions not documented [...] 13:00 Encounter Diagnosis: Problem not documented Appointment; [facility] On: 17-Jun-2018 10:00 Encounter Diagnosis: [...] 31-Oct-2019 9:30 Encounter Diagnosis: Problem not documented Appointment; SIXTO MARSH M.D. On: 31-Oct-2019 14:00 Encounter Diagnosis: Problem not documented
--- OUTSIDE RECORDS SUMMARY | 2019-12-11 15:31 | XMS REPORT | Summary of Care ---
:1955 Author Name MAXIMO Thompson, SIXTO Address Unavailable Unavailable , Care Team Providers Name Role Phone RICARDO Thompson, DORINDA Unavailable Unavailable MAXIMO Thompson, SIXTO Unavailable Unavailable JANELL Thompson, LIVAN Unavailable Unavailable LOLITA Thompson, RIZWAN Unavailable Unavailable NAVIN Thompson, RADHA Unavailable Unavailable EMELI Thompson, MARLYS Unavailable Unavailable JANELL GREENE, LIVAN Unavailable Unavailable TRI GREENE [place], GRABIEL Unavailable Unavailable CALDERON GREENE, AMY Unavailable Unavailable JOANN GREENE [place], MARYBETH M Unavailable Unavailable Mary GREENE, Lanre Unavailable Unavailable MAXIMO GREENE, SIXTO M Unavailable Unavailable Rudolph GREENE, Buster Unavailable Unavailable RICARDO GREENE, DORINDA Royal Unavailable Unavailable Belen GREENE, Dio Unavailable Unavailable FARHAT GREENE, KRYSTAL K Unavailable Unavailable LOLITA GREENE [place], RIZWAN Unavailable Unavailable GINNY GREENE, JHONATAN Unavailable [...] day before surgery Quantity: 6 Refills: 0 ANDDORINDA JAEGER M.D. Start : 25-Jul-2019 Active Neomycin Sulfate 500 MG Oral Tablet TAKE 2 TABLET Other Take 1gm (2 Tabs) at 1100, 1300, 2200 day before surgery Quantity: 6 Refills: 0 DORINDA SILVA M.D. Start : 25-Jul-2019 Active clonazePAM 1 MG Oral Tablet TAKE 1 TABLET EVERY 12 HOURS NEEDED. Quantity: 60 Refills: 3 LOLITA Thompson RIZWAN Start : 11-Aug-2019 Active Allergies and [...] Date: 31-Oct-2019 XRAY Ankle 3 views Bilateral 55242 Date: 28-Sep-2019 XRAY Foot 3 views Bilateral 87521 Date: 28-Sep-2019 XRAY Toe 17966 Date: 28-Sep-2019 History of Thyroid Surgery Substernal [...] 65yrs) or more drinks in a day? [id number]:47 BP Systolic 102 mm[Hg] Status: Comments: Location: LUE; Position: Sitting BP Diastolic 68 mm[Hg] Status: Comments: Location: E; Position: Sitting Height 60 in Status: Body [...] 9:00 Encounter Diagnosis: Problem not documented Appointment; [facility] On: 19-Jan-2018 9:00 Encounter Diagnosis: Problem not [...] 13:00 Encounter Diagnosis: Problem not documented Appointment; [facility] On: 17-Jun-2018 10:00 Encounter Diagnosis: [...] 14:00 Encounter Diagnosis: Problem not documented Appointment; [facility] On: 21-Jul-2019 10:00 Encounter Diagnosis: Problem not [...]
--- OUTSIDE RECORDS SUMMARY | 2019-12-11 15:31 | XMS REPORT | Summary of Care ---
:1955 Author Name Pippa Lion Address [facility] Unavailable , Care Team Providers Name Role Phone RICARDO Thompson, DORINDA Unavailable Unavailable MAXIMO Thompson, SIXTO Unavailable Unavailable JANELL Thompson, LIVAN Unavailable Unavailable LOLITA Thompson, RIZWAN Unavailable Unavailable NAVIN Thompson, RADHA Unavailable Unavailable EMELI Thompson, MARLYS Unavailable Unavailable JANELL GREENE, LIVAN Unavailable Unavailable TRI GREENE [place], GRABIEL Unavailable Unavailable CALDERON GREENE, AMY Unavailable Unavailable JOANN GREENE [place], MARYBETH M Unavailable Unavailable Mary GREENE, Lanre Unavailable Unavailable MAXIMO GREENE, SIXTO Jansen Unavailable Unavailable Buster Galdamez MD Unavailable Unavailable DORINDA SILVA MD Unavailable Unavailable Belen GREENE, Dio Unavailable Unavailable FARHAT GREENE, KRYSTAL K Unavailable Unavailable LOLITA GREENE [place], RIZWAN Unavailable Unavailable GINNY GREENE, JHONATAN Unavailable [...] CAPSULE AT BEDTIME. Quantity: 30 Refills: 3 NAVIN Thompson RADHA Start : 14-Oct-2018 Active Escitalopram Oxalate 20 [...] Date: 31-Oct-2019 XRAY Ankle 3 views Bilateral 31245 Date: 28-Sep-2019 XRAY Foot 3 views Bilateral 44796 Date: 28-Sep-2019 XRAY Toe 19281 Date: 28-Sep-2019 History of Thyroid Surgery Substernal [...] 13:00 Encounter Diagnosis: Problem not documented Appointment; [facility] On: 17-Jun-2018 10:00 Encounter Diagnosis: [...] Encounter Diagnosis: Problem not documented Appointment; [facility] On: 21-Jul-2019 10:00 Encounter Diagnosis: Problem not [...]
--- OUTSIDE RECORDS SUMMARY | 2019-12-11 15:32 | XMS REPORT | Summary of Care ---
:1955 Author Name MAXIMO Thompson, SIXTO Address Unavailable Unavailable , Care Team Providers Name Role Phone RICARDO Thompson, DORINDA Unavailable Unavailable MAXIMO Thompson, SIXTO Unavailable Unavailable CALDERON Thompson, AMY Unavailable Unavailable JANELL Thompson, LIVAN Unavailable Unavailable LOLITA Thompson, RIZWAN Unavailable Unavailable NAVIN Thompson, RADHA Unavailable Unavailable EMELI hTompson, MARLYS Unavailable Unavailable JANELL GREENE, LIVAN Unavailable Unavailable TRI GREENE UT, POYEE Unavailable Unavailable CALDERON GREENE, AMY Unavailable Unavailable JOANN GREENE NH, MARYBETH M Unavailable Unavailable Mary GREENE, Lanre [...] Dates Details XRAY Ankle 3 views Bilateral [id number] Date: 28-Sep-2019 XRAY Foot 3 views Bilateral [id number] Date: 28-Sep-2019 XRAY Toe [id number] Date: 28-Sep-2019 History of Thyroid Surgery Substernal [...] Details - Status: Name Dates Details Never smoked tobacco (finding) Never smoked tobacco (finding) Vital Signs Date Test Result Details :45 Systolic blood pressure 90 mm[Hg] Status: Diastolic blood pressure 51 mm[Hg] Status: Body height 60 in Status: Body mass index (BMI) [Ratio] 41.1 kg/m2 Status: Body surface area Derived from formula 1.91 m2 Status: Weight 210.4375 lb Status: Body temperature 97.7 f Status: Comments: Method: Oral Heart Rate 74 /min Status: O2 SAT 96 % Status: :48 Physical Findings 0 Status: Comments: PHQ-9 Adult Depression Screening Physical Findings 0 Status: Comments: Alcohol Screen - How many times in the past yr have you had 5 (for M) or 4 (for F) or 4 (for all > 65yrs) or more drinks in a day? [id number] Systolic blood pressure 102 mm[Hg] Status: Comments: Location: LUE; Position: Sitting Diastolic blood pressure 68 mm[Hg] Status: Comments: Location: LUE; Position : Sitting Body height 60 in Status: Body mass index (BMI) [Ratio] 41.09 kg/m2 Status: Body surface area Derived from formula 1.91 m2 Status: Weight 210.375 lb Status: Body temperature 97.4 f Status: Comments: Method: Oral Heart Rate 93 /min Status: Comments: Location: L Brachial Artery; Respiratory rate 14 /min Status: Comments: Quality: Normal Results Date Description Value Details [id number] [QLH] TSH, 3RD GENERATION TSH 12.500 {uIU/ml} (Above high threshold) Range: 0.360-3.740 Plan of Care Name Dates Details Planned Observations Planned Goals not documented Planned Encounters Appointment; KRYSTAL DOUGHERTY M.D. On: 15-Nov-2019 7:30 Appointment; DORINDA SILVA M.D. On: 15-Nov-2019 8:00 Appointment; AMY MANCERA M.D. On: 07-Dec-2019 16:00 Appointment; PEGGY JIMENEZ M.D. On: 05-Mar-2020 10:20 Appointment; SIXTO MARSH M.D. On: 07-May-2020 13:30 Instructions Name Dates Details Instructions not documented Encounters Appointment; MARYBTEH DAVID M.D. On: 06-Dec-2017 10:45 Encounter Diagnosis: Problem not documented Appointment; GALINA ELLISONE On: 09-Dec-2017 12:00 Encounter Diagnosis: Problem not documented Appointment; MARYBETH DAVID M.D. On: 27-Dec-2017 9:00 Encounter Diagnosis: Problem not documented Appointment; VASCULARTENISHA On: 19-Jan-2018 9:00 Encounter Diagnosis: Problem not documented Appointment; MARYBETH DAVID M.D. On: 19-Jan-2018 10:30 Encounter Diagnosis: Problem not documented Appointment; Ranjan Glez M.D. On: 08-Feb-2018 13:45 Encounter Diagnosis: Problem not documented Appointment; ADEEL DAVIDSON APRN On: 15-Feb-2018 12:00 Encounter Diagnosis: Problem not [...] Encounter Diagnosis: Problem not documented Appointment; [facility] On: 17-Jun-2018 10:00 Encounter Diagnosis: Problem not [...] Encounter Diagnosis: Problem not documented Appointment; DORINDA SIVLA M.D. On: 15-Aug-2018 9:30 Encounter Diagnosis: Problem [...] Encounter Diagnosis: Problem not documented Appointment; TEA SETVEN On: 11-May-2019 16:00 Encounter Diagnosis: Problem not documented Appointment; KRYSTAL DOUGHERTY M.D. On: 30-May-2019 12:00 Encounter Diagnosis: Problem not documented Appointment; KRYSTAL DOUGHERTY M.D. On: 12-Jun-2019 14:45 Encounter Diagnosis: Problem not documented Appointment; SIXTO MARSH M.D. On: 13-Jun-2019 10:00 Encounter Diagnosis: Problem not documented Appointment; DROINDA SILVA M.D. On: 17-Jul-2019 14:00 Encounter Diagnosis: [...]
[2019-12-11 15:58] LABS: Absolute Lymphocytes (CBC) 1.1 K/uL (0.7-4.9); Basophils % 0.7 % (0-1.3); Lymphocytes % 10.9 % (15.3-44.8); MPV 8.6 fL (7.6-11.3)
[2019-12-11 15:59] LABS: Protime INR 1.18
[2019-12-11 16:14] LABS: Albumin 3.3 g/dL (3.4-5.0); Bilirubin Direct 0.2 mg/dL (0-0.2); Bilirubin Total 0.3 mg/dL (0.2-1.0); Potassium 4.1 mmol/L (3.5-5.1); Protein, Total 8.1 g/dL (6.4-8.2); Troponin (Emerg Dept Use Only) 0.08 ng/mL (0.0-0.045)
[2019-12-11] MEDS ORDERED: NA CHLORIDE 0.9% 500 ML ONE (16:20)
--- NOTE | 2019-12-11 16:20 | RAD REPORT ---
EXAM DESCRIPTION: RAD - Chest Single View - 12/11/2019 4:06 pm CLINICAL HISTORY: CONGESTION COMPARISON: September 2019 TECHNIQUE: AP portable chest image was obtained 12/11/2019 4:06 pm . FINDINGS: No focal mass or consolidation. Interstitial pattern is mildly prominent, accentuated by s hallow inspiration. This also widened mediastinum. Heart and vasculature are normal. No measurable pl eural effusion and no pneumothorax. No acute bony abnormality seen. No acute aortic findings suspecte d. IMPRESSION: Limited portable study without acute cardiopulmonary finding. No significant change from comparison.
--- NOTE | 2019-12-11 19:48 | ER ---
Nurse's Notes [facility] Name: Danielle Yan Age: 64 yrs Sex: Female : 1955 Arrival Date: 12/11/2019 Time: 15:28 Bed 2 Private MD: Nitish Borrego Diagnosis: Nonspecific low blood-pressure reading Presentation: 12/10 15:30 Chief complaint: EMS states: SBP 70s after HD session completed. Pt reported feeling hb lethargic. Denies pain/fever. Coronavirus screen: Patient denies fever greater than 100.4F, cough, shortness of breath, or difficulty breathing. Proceed with normal triage process. Ebola Screen: No symptoms or risks identified at this time. Initial Sepsis Screen: Does the patient meet any 2 criteria? Mean Arterial Pressure (MAP) < 65. No. Patient's initial sepsis screen is negative. Does the patient have a suspected source of infection? No. Patient's initial sepsis screen is negative. Risk Assessment: Do you want to hurt yourself or someone else? Patient reports no desire to harm self or others. 15:30 Method Of Arrival: EMS: aLrissa hb 15:30 Acuity: [place] 2 hb 19:28 Onset of symptoms was December 11, 2019. jd3 Historical: - Allergies: 15:34 No Known Allergies; hb - Home Meds: 15:34 allopurinol 100 mg Oral tab 1 tab once daily [Active]; apixaban Oral [Active]; Baclofen hb Oral [Active]; Cartia XT 240 mg Oral cp24 1 cap once daily [Active]; clonazepam 0.5 mg Oral tab [Active]; colchicine-probenecid 0.5-500 mg Oral tab [Active]; escitalopram oxalate 20 mg Oral tab 1 tab once daily [Active]; gabapentin 100 mg Oral cap [Active]; levothyroxine 150 mcg tab [Active]; methocarbamol 500 mg Oral tab [Active]; midodrine 10 mg Oral tab [Active]; parsabiv 2.5 mg 3 x week post dialysis [Active]; sevelamer HCl Oral [Active]; Tradjenta 5 mg Oral tab 1 tab once daily [Active]; Xanax 0.5 mg Oral tab 1 tab twice a day [Active]; - PMHx: 15:34 Diabetes - NIDDM; Dialysis; factor 5 leiden; Gout; Hypertension; Hypothyroidism; hb PERIPHERAL NEUROPATHY; Renal Disease; - PSHx: 15:34 Cholecystectomy; colostomy and reversal; right subclavian dialysis port; left upper arm hb fistula; - Immunization history:: Adult Immunizations up to date. - Social history:: Smoking status: Patient denies any tobacco usage or history of. Patient/guardian denies using alcohol, street drugs, The patient lives with family. - Family history:: not pertinent. Screenin:34 Abuse screen: Denies threats or abuse. Denies injuries from another. Nutritional hb screening: No deficits noted. Tuberculosis screening: No symptoms or risk factors identified. Fall Risk Total Sanchez Fall Scale indicates Low Risk Score (25-44 pts). Fall prevention measures have been instituted. Side Rails Up X 2 Frequent Obs/Assesments occuring As available Patient and Family Educated on Fall Prevention Program and strategies. Assessment: 15:45 General: Appears in no apparent distress. Behavior is calm, cooperative. Pain: Denies hb pain. Neuro: Level of Consciousness is awake, alert, obeys commands, Oriented to person, place, time, situation. Cardiovascular: Heart tones S1 S2 present Capillary refill < 3 seconds Patient's skin is warm and dry. Respiratory: Airway is patent Respiratory effort is even, unlabored, Respiratory pattern is regular, symmetrical, Breath sounds are clear bilaterally. GI: No signs and/or symptoms were reported involving the gastrointestinal system. kwame noted to abdomen, post surgical site without redness or drainage. : No signs and/or symptoms were reported regarding the genitourinary system. EENT: No signs and/or symptoms were reported regarding the EENT system. Derm: Skin is pink, warm \T\ dry. Musculoskeletal: No signs and/or symptoms reported regarding the musculoskeletal system. 16:41 Reassessment: Patient appears in no apparent distress at this time. Patient and/or hb family updated on plan of care and expected duration. Pain level reassessed. Patient is alert, oriented x 3, equal unlabored respirations, skin warm/dry/pink. 17:52 Reassessment: Patient appears in no apparent distress at this time. Patient and/or hb family updated on plan of care and expected duration. Pain level reassessed. Patient is alert, oriented x 3, equal unlabored respirations, skin warm/dry/pink. 18:48 Reassessment: Patient appears in no apparent distress at this time. Patient and/or hb family updated on plan of care and expected duration. Pain level reassessed. Patient is alert, oriented x 3, equal unlabored respirations, skin warm/dry/pink. 19:26 General: Appears in no apparent distress. Behavior is calm, cooperative, appropriate jd3 for age, provider notified of blood pressure.. Pain: Denies pain. Neuro: Level of Consciousness is awake, alert, obeys commands, Oriented to person, place, time, situation, Denies blurred vision dizziness, numbness headache. Cardiovascular: Capillary refill < 3 seconds Patient's skin is warm and dry. Rhythm is sinus rhythm with PACs. Respiratory: Airway is patent Respiratory effort is even, unlabored, Respiratory pattern is regular, symmetrical, Denies cough, shortness of breath. GI: Abdomen is round non-distended, Patient currently denies constipation, diarrhea, nausea, vomiting. : No signs and/or symptoms were reported regarding the genitourinary system. EENT: No signs and/or symptoms were reported regarding the EENT system. Derm: Skin is intact, Skin is dry, Skin is normal, Skin temperature is warm. Musculoskeletal: Circulation, motion, and sensation intact. Range of motion: intact in all extremities. 19:55 Reassessment: Patient appears in no apparent distress at this time. No changes from jd3 previously documented assessment. Patient and/or family updated on plan of care and expected duration. Pain level reassessed. Patient is alert, oriented x 3, equal unlabored respirations, skin warm/dry/pink. Patient denies pain at this time. Vital Signs: 15:30 BP 71 / 51; Pulse 87; Resp 17; Temp 97.8; Pulse Ox 99% ; Weight 83 kg; Height 5 ft. hb (152.40 cm); Pain 0/10; 16:00 BP 65 / 53; Pulse 90; Resp 17; Pulse Ox 100% ; sv 16:18 BP 77 / 45; Pulse 92; Resp 15; Pulse Ox 98% ; sv 17:52 BP 85 / 61; Pulse 83; Resp 16; Pulse Ox 99% on R/A; Pain 0/10; hb 18:48 BP 83 / 47; Pulse 77; Resp 14; Pulse Ox 99% on R/A; Pain 0/10; hb 19:28 BP 76 / 48; Pulse 83; Resp 17 S; Pulse Ox 98% on R/A; Pain 0/10; jd3 19:55 BP 90 / 46; Pulse 77; Resp 15 S; Pulse Ox 100% on R/A; Pain 0/10; jd3 15:30 Body Mass Index 35.74 (83.00 kg, 152.40 cm) hb ED Course: 15:28 Patient arrived in ED. am2 15:28 Nitish Borrego DO is Private Physician. am2 15:32 Triage completed. hb 15:32 Arm band placed on. hb 15:38 Ruthie Bo MD is Attending Physician. ma2 15:40 Inserted saline lock: 22 gauge in right antecubital area, using aseptic technique. ss Blood collected. 15:57 Latesha Reagan, RN is Primary Nurse. hb 16:13 Basic Metabolic Panel Sent. sv 16:13 CBC with Diff Sent. sv 16:13 LFT's Sent. sv 16:13 Magnesium Sent. sv 16:13 NT PRO-BNP Sent. sv 16:13 PT-INR Sent. sv 16:14 Troponin (emerg Dept Use Only) Sent. sv 16:14 XRAY Chest (1 view) Sent. sv 19:11 Report given to Gail INMAN and Colleen INMAN. sv 19:29 Patient has correct armband on for positive identification. Placed in gown. Bed in low jd3 position. Call light in reach. Side rails up X 1. 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 Pulse ox on. NIBP on. 20:12 No provider procedures requiring assistance completed. IV discontinued, intact, jd3 bleeding controlled, No redness/swelling at site. Pressure dressing applied. Administered Medications: 16:19 Drug: NS 0.9% 500 ml Route: IV; Rate: 1 bolus; Site: right antecubital; hb 19:00 Follow up: Response: No adverse reaction; IV Status: Completed infusion; IV Intake: jd3 500ml Intake: 19:00 IV: 500ml; Total: 500ml. jd3 Outcome: 19:39 Discharge ordered by . ma2 20:12 Condition: stable jd3 20:12 Discharge instructions given to patient, Instructed on discharge instructions, follow up and referral plans. Demonstrated understanding of instructions, follow-up care. 20:19 Discharged to home via wheelchair, with family. jd3 20:20 Patient left the ED. jd3 Signatures: Carmela Alarcon RN RN sv Smirch, Shelby, RN RN Latesha Reagan RN RN Leigh Brito am2 Juanito Botello RN RN jRuthie Santos MD MD ma2 Corrections: (The following items were deleted from the chart) 16:18 16:17 BP 65 / 53; Pulse 90bpm; Resp 17bpm; Pulse Ox 100%; sv sv 20:12 19:26 Neuro: Level of Consciousness is awake, alert, obeys commands, Oriented to jd3 person, place, time, situation, jd3
--- NOTE | 2019-12-11 19:51 | EDPHYS ---
Physician Documentation [facility] Name: Danielle Yan Age: 64 yrs Sex: Female : 1955 Arrival Date: 12/11/2019 Time: 15:28 Bed 2 Private MD: Nitish Borrego ED Physician Ruthie Bo HPI: 12/10 17:40 This 64 yrs old Female presents to ER via EMS with complaints of Blood ma2 Pressure Problem. 17:40 Onset: The symptoms/episode began/occurred gradually, 1 hour(s) ago. Severity of ma2 symptoms: At their worst the symptoms were very mild in the emergency department the symptoms have resolved. The patient has experienced similar episodes in the past. low bp post HD, asymptomatic, has had this before . Historical: - Allergies: 15:34 No Known Allergies; hb - Home Meds: 15:34 allopurinol 100 mg Oral tab 1 tab once daily [Active]; apixaban Oral [Active]; Baclofen hb Oral [Active]; Cartia XT 240 mg Oral cp24 1 cap once daily [Active]; clonazepam 0.5 mg Oral tab [Active]; colchicine-probenecid 0.5-500 mg Oral tab [Active]; escitalopram oxalate 20 mg Oral tab 1 tab once daily [Active]; gabapentin 100 mg Oral cap [Active]; levothyroxine 150 mcg tab [Active]; methocarbamol 500 mg Oral tab [Active]; midodrine 10 mg Oral tab [Active]; parsabiv 2.5 mg 3 x week post dialysis [Active]; sevelamer HCl Oral [Active]; Tradjenta 5 mg Oral tab 1 tab once daily [Active]; Xanax 0.5 mg Oral tab 1 tab twice a day [Active]; - PMHx: 15:34 Diabetes - NIDDM; Dialysis; factor 5 leiden; Gout; Hypertension; Hypothyroidism; hb PERIPHERAL NEUROPATHY; Renal Disease; - PSHx: 15:34 Cholecystectomy; colostomy and reversal; right subclavian dialysis port; left upper arm hb fistula; - Immunization history:: Adult Immunizations up to date. - Social history:: Smoking status: Patient denies any tobacco usage or history of. Patient/guardian denies using alcohol, street drugs, The patient lives with family. - Family history:: not pertinent. ROS: 17:40 Constitutional: Negative for fever, chills, and weight loss. ma2 17:40 All other systems are negative. Exam: 17:40 Constitutional: This is a well developed, well nourished patient who is awake, alert, ma2 and in no acute distress. Head/Face: Normocephalic, atraumatic. Eyes: Pupils equal round and reactive to light, extra-ocular motions intact. Lids and lashes normal. Conjunctiva and sclera are non-icteric and not injected. Cornea within normal limits. Periorbital areas with no swelling, redness, or edema. ENT: Nares patent. No nasal discharge, no septal abnormalities noted. Tympanic membranes are normal and external auditory canals are clear. Oropharynx with no redness, swelling, or masses, exudates, or evidence of obstruction, uvula midline. Mucous membranes moist. Neck: Trachea midline, no thyromegaly or masses palpated, and no cervical lymphadenopathy. Supple, full range of motion without nuchal rigidity, or vertebral point tenderness. No Meningismus. Chest/axilla: Normal chest wall appearance and motion. Nontender with no deformity. No lesions are appreciated. Cardiovascular: Regular rate and rhythm with a normal S1 and S2. No gallops, murmurs, or rubs. Normal PMI, no JVD. No pulse deficits. Respiratory: Lungs have equal breath sounds bilaterally, clear to auscultation and percussion. No rales, rhonchi or wheezes noted. No increased work of breathing, no retractions or nasal flaring. Abdomen/GI: Soft, non-tender, with normal bowel sounds. No distension or tympany. No guarding or rebound. No evidence of tenderness throughout. Back: No spinal tenderness. No costovertebral tenderness. Full range of motion. Skin: Warm, dry with normal turgor. Normal color with no rashes, no lesions, and no evidence of cellulitis. MS/ Extremity: Pulses equal, no cyanosis. Neurovascular intact. Full, normal range of motion. Neuro: Awake and alert, GCS 15, oriented to person, place, time, and situation. Cranial nerves II-XII grossly intact. Motor strength 5/5 in all extremities. Sensory grossly intact. Cerebellar exam normal. Normal gait. Vital Signs: 15:30 BP 71 / 51; Pulse 87; Resp 17; Temp 97.8; Pulse Ox 99% ; Weight 83 kg; Height 5 ft. hb (152.40 cm); Pain 0/10; 16:00 BP 65 / 53; Pulse 90; Resp 17; Pulse Ox 100% ; sv 16:18 BP 77 / 45; Pulse 92; Resp 15; Pulse Ox 98% ; sv 17:52 BP 85 / 61; Pulse 83; Resp 16; Pulse Ox 99% on R/A; Pain 0/10; hb 18:48 BP 83 / 47; Pulse 77; Resp 14; Pulse Ox 99% on R/A; Pain 0/10; hb 19:28 BP 76 / 48; Pulse 83; Resp 17 S; Pulse Ox 98% on R/A; Pain 0/10; jd3 19:55 BP 90 / 46; Pulse 77; Resp 15 S; Pulse Ox 100% on R/A; Pain 0/10; jd3 15:30 Body Mass Index 35.74 (83.00 kg, 152.40 cm) hb MDM: 15:38 Patient medically screened. ma2 17:40 Differential Diagnosis sepsis, likely post HD syndrome, disequilibrium syndrome vs ma2 dehydration . Data reviewed: vital signs, nurses notes. Counseling: I had a detailed discussion with the patient and/or guardian regarding: the historical points, exam findings, and any diagnostic results supporting the discharge/admit diagnosis, the presence of at least one elevated blood pressure reading (>120/80) during this emergency department visit, the need for outpatient follow up. Response to treatment: the patient's symptoms have resolved after treatment. 18:14 ED course: bp now is 78/60, patient feels anu and want to go home i advised to keep ma2 here here and give more ivf and wait until bp is at least >90. she states that her normal/baseline bp is 70/60 and that this is normal for her. she want to be discharged and aware of risk of having severe dehydration and having vasovagal or positional syncope and risk of fall and head trauma. vs other undiagnosed infection. she understands risk and want to be discharged will call and see her pcp tomorrow and return to er and call 911 for any worsening or her symptoms. . 19:39 ED course: troponin elevated, patient want to be discharged aware of risk. . ma2 12/10 15:38 Order name: Basic Metabolic Panel [facility] 12/10 15:38 Order name: CBC with Diff [facility] 12/10 15:38 Order name: LFT's [facility] 12/10 15:38 Order name: Magnesium [facility] 12/10 15:38 Order name: NT PRO-BNP [facility] 12/10 15:38 Order name: PT-INR [facility] 12/10 15:38 Order name: Troponin (emerg Dept Use Only) [facility] 12/10 16:03 Order name: Protime (+INR); Complete Time: 16:14 [facility] 12/10 16:07 Order name: CBC with Automated Diff; Complete Time: 16:14 [facility] 12/10 16:16 Order name: Basic Metabolic Panel [facility] 12/10 16:16 Order name: Liver (Hepatic) Function [facility] 12/10 16:16 Order name: Troponin (Emerg Dept Use Only) [facility] 12/10 16:16 Order name: NT PRO-BNP [facility] 12/10 16:16 Order name: Magnesium [facility] 12/10 15:38 Order name: XRAY Chest (1 view) [facility] 12/10 15:38 Order name: EKG; Complete Time: 15:41 [facility] 12/10 15:38 Order name: Cardiac monitoring; Complete Time: 15:40 [facility] 12/10 15:38 Order name: EKG - Nurse/Tech; Complete Time: 15:39 [facility] 12/10 15:38 Order name: IV Saline Lock; Complete Time: 15:40 [facility] 12/10 15:38 Order name: Labs collected and sent; Complete Time: 15:40 [facility] 12/10 15:38 Order name: O2 Per Protocol; Complete Time: 15:39 [facility] 12/10 15:38 Order name: O2 Sat Monitoring; Complete Time: 15:40 ma2 Administered Medications: 16:19 Drug: NS 0.9% 500 ml Route: IV; Rate: 1 bolus; Site: right antecubital; hb 19:00 Follow up: Response: No adverse reaction; IV Status: Completed infusion; IV Intake: jd3 500ml Disposition: 12/11/19 19:39 Discharged to Home. Impression: Nonspecific low blood-pressure reading. - Condition is Stable. - Discharge Instructions: Hemodialysis. - Medication Reconciliation Form, Thank You Letter, Antibiotic Education, Prescription Opioid Use form. - Follow up: Private Physician; When: Avin[place]orrow; Reason: Continuance of care. Signatures: Dispatcher [employer] EDLatesha Canada RN Juanito Bazan RN RN jd3 Ruthie Bo MD MD ma2 Corrections: (The following items were deleted from the chart) 20:20 19:39 12/11/2019 19:39 Discharged to Home. Impression: Nonspecific low blood-pressure jd3 reading. Condition is Stable. Forms are Medication Reconciliation Form, Thank You Letter, Antibiotic Education, Prescription Opioid Use. Follow up: Private Physician; When: Tomorrow; Reason: Continuance of care. ma2
[2019-12-11 21:01] VITALS: TEMP 97.8
[2019-12-11 21:10] VITALS: BP 90/46; O2SAT 100
--- NOTE | 2019-12-12 10:01 | EKG ---
Test Date: 2019-12-11 Test Time: 15:34:22 [employer] Tender: TYRESE MEASUREMENT RESULTS: Intervals: Rate: 88 ND: 166 QRSD: 90 QT: 380 QTc: 459 R[place]on: P: 31 ND: 166 QRS: 261 T: 73 INTERPRETIVE STATEMENTS: Sinus rhythm with premature supraventricular complexes Lateral infarct, age undetermined Abnormal ECG Compared to ECG 10/07/2019 20:00:33 Atrial premature complex(es) now present Myocardial infarct finding still present Electronically Signed On 12-12-19 09:59:56 CDT by Osman Gaviria
== END 2019-12-11 20:20 | disposition home or self-care (01) ==
LOC: ER 15:26
DX: R03.1 Nonspecific low blood-pressure reading (principal); I12.0 Hypertensive chronic kidney disease with stage 5 chronic kidney disease or end stage renal disease; E11.22 Type 2 diabetes mellitus with diabetic chronic kidney disease; N18.6 End stage renal disease; E03.9 Hypothyroidism, unspecified; Z99.2 Dependence on renal dialysis
CPT/HCPCS: 96361; 93005; 85025; 80048; 36415; 83735; 85610; 80076; 84484; 83880; 71045; 96360; 99284; J7040

== ENCOUNTER 2020-04-26 13:23 | Emergency (ER) | payer OTHER ==
--- OUTSIDE RECORDS SUMMARY | 2020-04-26 13:28 | XMS REPORT | Summary of Care ---
:1955 Author Name Jam HaydenSage Address Unavailable Unavailable , Care Team Providers Name Role Phone RICARDO Thompson Unavailable Unavailable CALDERON Thompson Unavailable Unavailable JANELL Thompson Unavailable Unavailable LOLITA Thompson Unavailable Unavailable NAVIN Thompson Unavailable Unavailable EMELI Thompson Unavailable Unavailable JANELL GREENE Unavailable Unavailable TRI GREENE UT Unavailable Unavailable CALDERON GREENE Unavailable Unavailable JOANN GREENE UT Unavailable Unavailable Mary GREENE Unavailable Unavailable MAXIMO GREENE Unavailable Unavailable Rudolph GREENE Unavailable Unavailable RICARDO GREENE Unavailable Unavailable Belen GREENE Unavailable Unavailable FARHAT GREENE Unavailable Unavailable LOILTA GREENE UT Unavailable Unavailable GINNY GREENE Unavailable Unavailable TONY GREENE Unavailable Unavailable ELI GREENE Unavailable Unavailable ADELSO GREENE Unavailable Unavailable BRITTANY GREENE Unavailable Unavailable Emeli GREENE Unavailable Unavailable Unavailable Unavailable Unavailable Functional Status Name Dates Details Functional status health issues are not documented Status: Name Dates Details Cognitive status health issues are not documented Status: Problems Name Dates Details Acute deep vein thrombosis of lower extremity (453.40, I82.4 09) Status: Active Joint pain of lower extremity (719.48, M25.50) Status: Active Colovesical fistula (596.1, N32.1) Statu s: Active Edema (782.3, R60.9) Status: Active Lumbar radiculopathy (724.4, M54.16) Sta tus: Active Staph infection (041.10, B95.8) Status: Active Parathyroid adenoma (227.1, D35.1) Statu s: Active Hyperparathyroidism (252.00, E21.3) Stat us: Active Hypercalcemia (275.42, E83.52) Status: A ctive Pain in joint involving upper arm (719.42, M25.529) Status: Active Vitamin D insufficiency (268.9, E55.9) S tatus: Active Bilateral hand pain (729.5, M79.641) Sta tus: Active Gout (274.9, M10.9) Status: Active Insomnia (780.52, G47.00) Status: Active Hypercoagulable state (289.81, D68.59) S tatus: Active Renal dialysis device, implant, or graft complication (996.7 3, T82.9XXA) Status: Active Thrombophlebitis (451.9, I80.9) Status: Active Cellulitis of left upper extremity (682.3, L03.114) Status: Active Complication of device or graft (996.70, T85.9XXA) Status: Active 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, F33.0) Status: Active Type 2 diabetes mellitus (250.00, E11.9) Status: Active Hypotension (458.9, I95.9) Status: Activ e Need for shingles vaccine (V04.89, Z23) Status: Active Abdominal wall abscess (682.2, L02.211) Status: Active Endocarditis (424.90, I38) Status: Activ e Postop check (V67.00, Z09) Status: Activ e Aftercare following surgery (V58.89, Z48.89) Status: Active Open abdominal wall wound (879.2, S31.109A) Status: Active End stage renal disease (585.6, N18.6) S tatus: Active Status post angioplasty (V45.89, Z98.62) Status: Active Dietary iron deficiency anemia (280.1, D50.8) Status: Active Diabetes mellitus type 2, uncontrolled (250.02, E11.65) Status: Active Pre-op exam (V72.84, Z01.818) Status: Ac tive Preoperative clearance (V72.84, Z01.818) Status: Active Factor V Leiden mutation (289.81, D68.51) Status: Active Anemia (285.9, D64.9) Status: Active Hyperlipidemia (272.4, E78.5) Status: Ac tive Abdominal abscess Status: Active Colonic fistula (569.81, K63.2) Status: Active Neuropathy involving both lower extremities (356.9, G57.93) Status: Active Effective bowel preparation for surgery Status: Active Anxiety (300.00, F41.9) Status: Active Depressive disorder (311, F32.9) Status: Active Right ankle injury (959.7, S99.911A) Sta tus: Active Injury of toe on right foot, initial encounter (959.7, S99.9 21A) Status: Active Injury of left ankle, initial encounter (959.7, S99.912A) Status: Active Hypothyroidism, postsurgical (244.0, E89.0) Status: Active Hematoma of hip (924.01, S70.00XA) Statu s: Active Enterocutaneous fistula (569.81, K63.2) Status: Active Medications Name Dates Details Levothyroxine Sodium 150 MCG Oral Tablet TAKE 1 TABLET BY MOUTH EVERY DAY Quantity: 90 Refills: 0 AMY MANCERA M.D. Start : 28-Feb-2015 Active Colchicine-Probenecid 0.5-500 MG Oral Tablet TAKE 1 TABLET DAILY DIRECTED. Refills: 0 Active Eliquis 5 MG Oral Tablet TAKE 1 TABLET BY MOUTH TWICE A DAY (NEED OFFICE VISIT) Quantity: 30 Refills: 0 ALLY GODDARD M.D. Start : 17-Jun-2018 Active clonazePAM [...] Dates Details No Known Drug Allergies (Allergy) Status : Active Past Medical History Name Dates Details History of chronic kidney disease (V13.09, Z87.448) Status: Resolved History of Diverticulitis (562.11, K57.92) Status: Resolved History of Factor 5 Leiden mutation, heterozygous (289.81, D 68.51) Status: Resolved History of goiter (V12.29, Z86.39) Statu s: Resolved History of Celeste thyroiditis (V12.29, Z86.39) Status: Resolved History of hypertension (V12.59, Z86.79) Status: Resolved History of urinary tract infection (V13.02, Z87.440) Status: Resolved History of urinary tract infection (V13.02, Z87.440) Status: Resolved Procedures Procedure Dates Details History of Thyroid Surgery Substernal Thyroidectomy Completed History of Thyroid Surgery Luiz-Thyroidectomy Left Lobe Completed History of Colostomy Completed History of Cholecystectomy Completed History of Hernia Repair Completed History of Laminectomy Lumbar Completed History of Arteriovenous fistula creation procedure Completed Immunization Name Dates Details Hepatitis B, adult on: Nov-2017 Pneumococcal polysaccharide vaccine, 23 valent on: Nov-2017 Hepatitis B, adult on: Jan-2018 Fluzone Quadrivalent 0.5 ML Intramuscular Suspension on: May Fluzone High-Dose 0.5 ML Intramuscular Suspension Pref illed Syringe on: 21-May-2019 Family History Name Dates Details Family history [...] history of Factor 5 Leiden mutation, heterozygous (28 9.81, D68.51) Status: Active Social History Name Dates Details - Status: Name Dates Details Never smoked tobacco (finding) Never smoked tobacco (finding) Vital Signs Date Test Result Details [id number] Systolic blood pressure 96 mm[Hg] Status: Comments: Location: LUE; Position: Sitting Diastolic blood pressure 60 mm[Hg] Status: Comment s: Location: LUE; Position: Sitting Body height 60 in Status: Weight 201 lb Status: Body mass index (BMI) [Ratio] 39.26 kg/m2 Status: Body surface area Derived from formula 1.87 m2 S tatus: Body temperature 97.9 f Status: Comments: Me thod: Oral Heart Rate 79 /min Status: Results Date Description Value Details Results not documented Plan of Care Name Dates Details Planned Observations Planned Goals not documented Planned Encounters Appointment; PEGGY JIMENEZ M.D. On: 05-Mar-2020 10:20 Appointment; SIXTO MARSH M.D. On: 2019 13:30 Interventions Provided Medication ChangesLevothyroxine Sodium 150 MCG Oral Tablet - Renew Instructions Name Dates Details Instructions not documented Encounters Appointment; Ranjan Glez M.D. On: 08-Feb-2018 13:4 5 Encounter Diagnosis: Problem not documented Appointment; ADEEL DAVIDSON APRN On: 15-Feb-2018 12 :00 Encounter Diagnosis: Problem not documented Appointment; Ranjan Glez M.D. On: 08-Mar-2018 10:1 5 Encounter Diagnosis: Problem not documented Appointment; MARYBETH DAVID M.D. On: 17-Mar-2018 10:3 0 Encounter Diagnosis: Problem not documented Appointment; KRYSTAL DOUGHERTY M.D. On: 24-Mar-2018 17:00 Encounter Diagnosis: Problem not documented Appointment; KRYSTAL DOUGHERTY M.D. On: 13-Apr-2018 10:30 Encounter Diagnosis: Problem not documented Appointment; RADHA HOLDEN M.D. On: 22-Apr-2018 9:15 Encounter Diagnosis: Problem not documented Appointment; DAVI PEREZ M.D. On: 26-Apr-2018 11 :00 Encounter Diagnosis: Problem not documented Appointment; Ranjan Glez M.D. On: 03-May-2018 11:3 0 Encounter Diagnosis: Problem not documented Appointment; KRYSTAL DOUGHERTY M.D. On: 11-May-2018 10:30 Encounter Diagnosis: Problem not documented Appointment; Ranjan Glez M.D. On: 17-May-2018 13:0 0 Encounter Diagnosis: Problem not documented Appointment; [facility], SERVICE On: 16-Jun-2018 13:00 Encounter Diagnosis: Problem not documented Appointment; [facility] On: 17-Jun-2018 10:00 Encounter Diagnosis: Problem not documented Appointment; LIVAN MACIEL M.D. On: 28-Jun-2018 13: 00 Encounter Diagnosis: Problem not documented Appointment; GENER[facility], SERVICE On: 30-Jun-2018 14:00 Encounter Diagnosis: Problem not documented Appointment; PEGGY JIMENEZ M.D. On: 05-Jul-2018 10:40 Encounter Diagnosis: Problem not documented Appointment; RADHA HOLDEN M.D. On: 15-Jul-2018 9:45 Encounter Diagnosis: Problem not documented Appointment; SIXTO MARSH M.D. On: 2017 10:30 Encounter Diagnosis: Problem not documented Appointment; LIVAN MACIEL M.D. On: 26-Jul-2018 13: 00 Encounter Diagnosis: Problem not documented Appointment; SIXTO MARSH M.D. On: 2017 11:15 Encounter Diagnosis: Problem not documented Appointment; DORINDA SILVA M.D. On: 15-Aug-2018 9 :30 Encounter Diagnosis: Problem not documented Appointment; LIVAN MACIEL M.D. On: 25-Aug-2018 13: 00 Encounter Diagnosis: Problem not documented Appointment; RADHA HOLDEN M.D. On: 14-Oct-2018 9:15 Encounter Diagnosis: Problem not documented Appointment; DORINDA SILVA M.D. On: 17-Oct-2018 1 0:00 Encounter Diagnosis: Problem not documented Appointment; [facility], [facility] On: 27-Oct-2018 12:00 Encounter Diagnosis: Problem not documented Appointment; SIXTO MARSH M.D. On: 14:00 Encounter Diagnosis: Problem not documented Appointment; [...] documented Appointment; RIZWAN MCHUGH M.D. On: 06-Jan-2019 15 :00 Encounter Diagnosis: Problem not documented Appointment; [facility], [facility] On: 16-Jan-2019 9:30 Encounter Diagnosis: Problem not documented Appointment; JHONATAN GROSS M.D. On: 16-Jan-2019 13:45 Encounter Diagnosis: Problem not documented Appointment; SIXTO MARSH M.D. On: 2018 13:30 Encounter Diagnosis: Problem not documented Appointment; LIVAN MACIEL M.D. On: 23-Feb-2019 13: 45 Encounter Diagnosis: Problem not documented Appointment; [facility], [facility] On: 21-Mar-2019 9:30 Encounter Diagnosis: Problem not documented Appointment; SIXTO MARSH M.D. On: 019 11:15 Encounter Diagnosis: Problem not documented Appointment; ALLY GODDARD M.D. On: 27-Mar-2019 14:45 Encounter Diagnosis: Problem not documented Appointment; DORINDA SILVA M.D. On: 03-Apr-2019 1 3:00 Encounter Diagnosis: Problem not documented Appointment; DORINDA SILVA M.D. On: 24-Apr-2019 14 :30 Encounter Diagnosis: Problem not documented Appointment; KRYSTAL DOUGHERTY M.D. On: 25-Apr-2019 14:30 Encounter Diagnosis: Problem not documented Appointment; RIZWAN MCHUGH M.D. On: 01-May-2019 15 :00 Encounter Diagnosis: Problem not documented Appointment; GRABIEL BARTLETT M.D. On: 11-May-2019 14:45 Encounter Diagnosis: Problem not documented Appointment; TEA STEVEN On: 11-May-2019 16:00 Encounter Diagnosis: Problem not documented Appointment; KRYSTAL DOUGHERTY M.D. On: 30-May-2019 12:00 Encounter Diagnosis: Problem not documented Appointment; KRYSTAL DOUGHERTY M.D. On: 12-Jun-2019 14:45 Encounter Diagnosis: Problem not documented Appointment; SIXTO MARSH M.D. On: 2018 10:00 Encounter Diagnosis: Problem not documented Appointment; DORINDA SILVA M.D. On: 17-Jul-2019 1 4:00 Encounter Diagnosis: Problem not documented Appointment; [facility], [facility] On: 21-Jul-2019 10:00 Encounter Diagnosis: Problem not documented Appointment; SIXTO MARSH M.D. On: 12:00 Encounter Diagnosis: Problem not documented Appointment; FANTASMA MANZANO M.D. On: 25-Jul-2019 11:00 Encounter Diagnosis: Problem not documented Appointment; RIZWAN MCHUGH M.D. On: 31-Jul-2019 15 :00 Encounter Diagnosis: Problem not documented Appointment; GRABIEL BARTLETT M.D. On: 03-Aug-2019 15:00 Encounter Diagnosis: Problem not documented Appointment; RIZWAN MCHUGH M.D. On: 11-Aug-2019 16 :00 Encounter Diagnosis: Problem not documented Appointment; SIXOT MARSH M.D. On: 2018 11:15 Encounter Diagnosis: Problem not documented Appointment; LIANET DARDEN M.D. On: 28-Sep-2019 15:3 0 Encounter Diagnosis: Problem not documented Appointment; PEGGY JIMENEZ M.D. On: 10-Oct-2019 11:20 Encounter Diagnosis: Problem not documented Appointment; SIXTO MARSH M.D. On: 2019 14:00 Encounter Diagnosis: Problem not documented Appointment; AMY MANCERA M.D. On: 31-Oct-2019 9:3 0 Encounter Diagnosis: Problem not documented Appointment; SIXTO MARSH M.D. On: 2019 14:00 Encounter Diagnosis: Problem not documented Appointment; KRYSTAL DOUGHERTY M.D. On: 15-Nov-2019 7:30 Encounter Diagnosis: Problem not documented Appointment; DORINDA SILVA M.D. On: 15-Nov-2019 8 :00 Encounter Diagnosis: Problem not documented Appointment; DORINDA SILVA M.D. On: 08-Jan-2020 1 4:45 Encounter Diagnosis: Problem not documented Appointment; DORINDA SILVA M.D. On: 22-Jan-2020 14 :00 Encounter Diagnosis: Problem not documented
--- OUTSIDE RECORDS SUMMARY | 2020-04-26 13:28 | XMS REPORT | Continuity of Care Document ---
:1955 Author Organization [facility] t Address [address] [place] [address] Care Team Providers Name Role Phone LOLITA Attending Clinician Unavailable TONY Attending Clinician Unavailable ANDHEIDE Attending Clinician Unavailable FARHAT Attending Clinician Unavailable MAXIMO Attending Clinician Unavailable CALDERON Attending Clinician Unavailable ADELSO Attending Clinician Unavailable TUNG Attending Clinician Unavailable JOSE JUAN Attending Clinician Unavailable VASCULAR Attending Clinician Unavailable GALINAE Attending Clinician Unavailable RUPESH Attending Clinician Unavailable JANELL Attending Clinician Unavailable GINNY Attending Clinician Unavailable VASCULAR Attending Clinician Unavailable SETH Attending Clinician Unavailable NAVIN Attending Clinician Unavailable GENERAL Attending Clinician Unavailable MED PROVIDER Attending Clinician Unavailable Amaris Attending Clinician Unavailable CHRIS Attending Clinician Unavailable JOANN Attending Clinician Unavailable LETY Attending Clinician Unavailable VASCULAR Attending Clinician Unavailable CATHRYN Attending Clinician Unavailable MATTHEW Attending Clinician Unavailable Payers Payer Name Policy Type Policy Number Effective Date Expiration Date S ource Problems Condition Condition Condition Status Onset Resolution Last Treating Co mments Source Name Details Category Date Date Treatment Clinician Date Abdominal Abdominal Problem Active Uni vers abscess abscess ity of [place] Physici ans Effective Effective Problem Active Uni vers bowel bowel [place] of prepar[place] preparatio [place] for n for Physici surgery surgery ans History of History of Problem Resolve Univers chronic chronic d ity of kidney kidney [place] disease disease Physici ans History of History of Problem Resolve Univers Diverticul Diverticul d it y of itis itis [place] Physici ans Factor V Factor V Problem Active Unive rs Leiden Leiden ity of mutation mutation [place] Physici ans History of History of Problem Resolve Univers Celeste Celeste d ity of thyroiditi thyroiditi [place] s Physici ans History of History of Problem Resolve Univers hypertensi hypertensi d it y of on on [place] Physici ans History of History of Problem Resolve Univers urinary urinary d ity of tract tract [place] infection infection Phys ici ans Acute deep Acute deep Problem Active U nivers vein vein [place] of thrombosis [place] of lower of lower Physic i extremity extremity ans Joint pain Joint pain Problem Active U nivers of lower of lower [place] of extremity extremity [place] Physici ans [place] Col[place] Problem Active U nivers l fistula l fistula ity of [place] Physici ans Edema Edema Problem Active Univers ity of [place] [facility] ans Lumbar Lumbar Problem Active Univers radiculopa radiculopa it y of thy thy [place] Physici ans Staph Staph Problem Active Univers infection infection ity of [place] Physici ans Parathyroi Parathyroi Problem Active U nivers d adenoma d adenoma ity of [place] Physici ans Hyperparat Hyperparat Problem Active U nivers hyroidism hyroidism ity of [place] Physici ans Hypercalce Hypercalce Problem Active U nivers isaac isaac ity of [place] Physici ans Pain in Pain in Problem Active Univers joint joint ity of involving involving [place] upper arm upper arm Phys ici ans Vitamin D Vitamin D Problem Active Uni vers insufficie insufficie it y of ncy ncy [place] Physici ans Bilateral Bilateral Problem Active Uni vers hand pain hand pain ity of [place] Physici ans Gout Gout Problem Active Univers ity of [place] Physici ans Insomnia Insomnia Problem Active Unive rs ity of [place] Physici ans Hypercoagu Hypercoagu Problem Active U nivers lable lable ity of [facility] Physici ans Renal Renal Problem Active Univers dialysis dialysis ity of device, device, [place] implant, implant, Physic i or graft or graft ans complicati complicati on on Thrombophl Thrombophl Problem Active U nivers ebitis ebitis ity of [place] Physici ans Cellulitis Cellulitis Problem Active U nivers of left of left ity of upper upper [place] extremity extremity Phys ici ans Complicati Complicati Problem Active U nivers on of on of it[place] of device or device or [place] graft graft [place]ici ans 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 Type 2 Type 2 Problem Active Univers diabetes diabetes ity of mellitus mellitus [place] Physici ans Hypotensio Hypotensio Problem Active U nivers n n ity of [place] Physici ans Need for Need for Problem Active Unive rs shingles shingles ity of vaccine vaccine [place] Physici ans Abdominal Abdominal Problem Active Uni vers wall wall ity of abscess abscess [place] Physici ans Endocardit Endocardit Problem Active U nivers is is ity of [place] [facility] ans Postop Postop Problem Active Univers check check ity of [place] Physici ans Aftercare Aftercare Problem Active Uni vers following following ity of surgery surgery [place] Physici ans Open Open Problem Active Univers abdominal abdominal ity of wall wound wall wound [place] Phys[place] End stage End stage Problem Active Uni vers renal renal ity of disease disease [place] Physici ans Status Status Problem Active Univers post post ity of angioplast angioplast [place] y Physici ans Dietary Dietary Problem Active Univers iron iron ity of deficiency deficiency [place] anemia anemia Physici ans Diabetes Diabetes Problem Active Unive rs mellitus mellitus ity of type 2, type 2, [place] uncontroll uncontroll Ph ysici ed ed ans Preoperati Preoperati Problem Active U nivers ve ve it[place] of clearance clearance [place] Phys[place] ans Anemia Anemia Problem Active Univers ity of [place] Physici ans Hyperlipid Hyperlipid Problem Active U nivers emia emia ity of [place] Physici ans Enterocuta Enterocuta Problem Active U nivers neous neous ity of fistula fistula [place] Physici ans Neuropathy Neuropathy Problem Active U nivers involving involving ity of both lower both lower [place] extremitie extremitie Ph ysici s s ans Anxiety Anxiety Problem Active Univers ity of [place] Physici ans Depressive Depressive Problem Active U nivers disorder disorder ity of [place] Physici ans Right Right Problem Active Univers ankle ankle ity of injury injury [place] Physici ans Injury of Injury of Problem Active Uni vers toe on toe on ity of right right [place] foot, foot, Physici initial initial ans encounter encounter Injury of Injury of Problem Active Uni vers left left ity of ankle, ankle, [place] initial initial Physici encounter encounter ans Hypothyroi Hypothyroi Problem Active U nivers dism, dism, ity of postsurgic [place]urgic [place] al al Physici ans Hematoma Hematoma Problem Active Unive rs of hip of hip ity of [place] Physici ans Allergies, Adverse Reactions, Alerts Allergy Allergy Status Severity Reaction(s) Onset Inactive Treating Comm ents Source Name Type Date Date Clinician No Known DA Active U [facility] 04-26 [place] [facility]: [facility] Family History Family Member Diagnosis Comments Start Date Stop Date Source Child Family history of Univers ity of thyroid disease [place] Phy sicians Sibling Family history of Univers ity of chronic kidney [place] Phys icians disease Mother Family history of Univers ity of chronic kidney [place] Phys icians disease Mother Family history of Univers ity of type 2 diabetes [place] y sicians mellitus Unknown Family Family history of Other Uni versity of Member suicide [place] Physicia ns Unknown Family Family history of Other Uni versity of Member Substance abuse [place] Phy sicians Sister Family history of Univers ity of Factor 5 Leiden [facility] sicians mutation, heterozygous Social History Smoking Status Start Date Stop Date Source Never smoked tobacco (finding) [facility] Medications Ordered Filled Start Stop Current Ordering Indication Dosage Frequency Signature Comments Components Source Medication Medication Date Date Medication? Clinician (SIG) Name Name clonazePAM clonazePAM Yes RIZWAN TAKE 1 Univers 1 MG Oral 1 MG Oral 8-03 [place] TABLET ity of Tablet Tablet 00:00: M.D. DISSOLVE [place] Disintegrat Disintegrat 00 IN MOUTH Physici ing ing TWICE A ans DAY clonazePAM clonazePAM Yes RIZWAN klonazepam Univers 0.5 MG Oral 0.5 MG Oral 8-03 [place] 0.5 mg qd ity of Tablet Tablet 00:00: M.D. prn break [place] Disintegr[place] Dis[place] 00 through Physici ing ing anxiety ans Gabapentin Gabapentin Yes RIZWAN TAKE 1 Univers 100 MG Oral 100 MG Oral 8-03 [place] CAPSULE ity of Capsule Capsule 00:00: M.D. IN THE [place] 00 MORNING Physici AND 2 ans CAPSULES IN THE EVENING. Tradjenta 5 Tradjenta 5 Yes PEGGY CILLO 1 QD TAKE 1 Univers MG Oral MG Oral 6-16 M.D. TABLET BY ity of Tablet Tablet 00:00: MOUTH [place] 00 EVERY DAY Physici ans clonazePAM clonazePAM 2018-09 Yes RIZWAN Q12H TAKE 1 Univers 1 MG Oral 1 MG Oral 1-22 [place] TABLET BY ity of Tablet Tablet 00:00: M.D. MOUTH [place] 00 EVERY 12 Physici HOURS ans NEEDED Escitalopra Escitalopra 2018- Yes RIZWAN 1 QD TAKE 1 Univers m Oxalate m Oxalate 8-12 [place] TABLET ity of 20 MG Oral 20 MG Oral 00:00: M.D. DAILY. [place] Tablet Tablet 00 Physici ans clonazePAM clonazePAM Yes RIZWAN Take 0.5 Univers 0.5 MG Oral 0.5 MG Oral 8-12 [place] mg in the ity of Tablet Tablet 00:00: M.D. morning [place] 00 and 1 mg Physici at bedtime ans Gabapentin Gabapentin Yes RIZWAN Q0.5D TAKE 1 Univers 300 MG Oral 300 MG Oral 8-12 [place] CAPSULE ity of Capsule Capsule 00:00: M.D. TWICE [place] 00 DAILY. Physici ans clonazePAM clonazePAM 2017-09 Yes RIZWAN take 0.5 Univers 0.5 MG Oral 0.5 MG Oral 0-26 [place] mg qd and ity of Tablet Tablet 00:00: M.D. 1 mg qhs [place] 00 Physici ans Tramadol Tramadol 2017-09 Yes Garret [address] [facility] HCl HCl 0-09 [facility] Eliquis 5 Eliquis 5 Yes ALLY Take 1 Univers MG Oral MG Oral 9-28 RUPESH tablet by i ty of Tablet Tablet 00:00: M.D. mouth [place] 00 twice a Physici day ans Levothyroxi Levothyroxi Yes ALLY 1 QD TAKE 1 Univers ne Sodium ne Sodium 6-11 RUPESH TABLET BY ity of 150 MCG 150 MCG 00:00: M.D. MOUTH [place] Oral Tablet Oral Tablet 00 EVERY DAY Physici ans Allopurinol Allopurinol Yes U nivers 100 MG Oral 100 MG Oral i ty of Tablet Tablet Physici ans PhosLo CAPS PhosLo CAPS Yes U nivers ity of [place] Physici ans Midodrine Midodrine Yes Unive rs HCl - 2.5 HCl - 2.5 ity o f MG Oral MG Oral [place] Tablet Tablet Physici ans Immunizations Ordered Immunization Filled Date Status Comments Sour ce Name Immunization Name Fluzone High-Dose 2019-05-21 Completed Univers ity of 0.5 ML Intramuscular 00:00:00 [place] Suspension Prefilled Phys icians Syringe Pneumococcal Unknown Completed [place] o polysaccharide [place] vaccine, 23 valent Physic ians Hepatitis B, adult Unknown Completed Univer sity of [place] Physicians Hepatitis B, adult Unknown Completed Univer [facility]ity [facility] [place] [facility]icians Fluzone Quadrivalent Unknown Completed Univ ersity of 0.5 ML Intramuscular [place] Suspension Physicians Vital Signs Vital Name Observation Time Observation Value Comments Source Systolic blood 2020-01-22 96 mm[Hg] Location: [facility] 13:54:00 Position: [place] Physician s Sitting Diastolic blood 2020-01-22 60 mm[Hg] Location: [facility] 13:54:00 Position: [place] Physician s Sitting Body height 2020-01-22 60 [in_us] University of 13:54:00 [place] Physician s Weight 2020-01-22 201 [lb_av] University of 13:54:00 [place] Physician s Body mass index 2020-01-22 39.26 kg/m2 [place] o (BMI) [Ratio] 13:54:00 [place] Physicia ns Body temperature 2020-01-22 97.9 [degF] Method: Oral University of 13:54:00 [place] Physician s Heart Rate 2020-01-22 79 /min University of 13:54:00 [place] Physician s Systolic blood 2019-10-31 90 mm[Hg] University of pressure 14:45:00 [place] Physician s Diastolic blood 2019-10-31 51 mm[Hg] University o pressure 14:45:00 [place] Physician s Body height 2019-10-31 60 [in_us] University of 14:45:00 [place] Physician s Body mass index 2019-10-31 41.1 kg/m2 [place] o (BMI) [Ratio] 14:45:00 [place] Physicia ns Weight 2019-10-31 210.4375 [lb_av] University of 14:45:00 [place] Physician s Body temperature 2019-10-31 97.7 [degF] Method: Oral University of 14:45:00 [place] Physician s Heart Rate 2019-10-31 74 /min University of 14:45:00 [place] Physician s O2 SAT 2019-10-31 96 % University of 14:45:00 [place] Physician s Systolic blood 2019-10-31 102 mm[Hg] Location: LUE; University of pressure 09:47:00 Position: [place] Physician s Sitting Diastolic blood 2019-10-31 68 mm[Hg] Location: [facility] 09:47:00 Position: [place] Physician s Sitting Body height 2019-10-31 60 [in_us] University of 09:47:00 [place] Physician s Weight 2019-10-31 210.375 [lb_av] University o f 09:47:00 [place] Physician s Body mass index 2019-10-31 41.09 kg/m2 University o f (BMI) [Ratio] 09:47:00 [place] Physicia ns Body temperature 2019-10-31 97.4 [degF] Method: Oral University of 09:47:00 [place] Physician s Heart Rate 2019-10-31 93 /min Location: L [place] of 09:47:00 Brachial [place] Physician s Artery; Respiratory rate 2019-10-31 14 /min Quality: Normal Universi ty of 09:47:00 [place] Physician s BP Systolic 2019-09-28 95 mm[Hg] Location: [facility] 15:55:00 Position: [place] Physician s Sitting BP Diastolic 2019-09-28 67 mm[Hg] Location: [facility] 15:55:00 Position: [place] Physician s Sitting Height 2019-09-28 60 [in_us] University of 15:55:00 [place] Physician s Weight 2019-09-28 213.0625 [lb_av] University of 15:55:00 [place] Physician s Body Mass Index 2019-09-28 41.61 kg/m2 University o f Calculated 15:55:00 [place] Physician s Temperature 2019-09-28 97.4 [degF] Method: Oral University of 15:55:00 [place] Physician s Heart Rate 2019-09-28 69 /min Location: [facility] 15:55:00 Brachial [place] Physician s Artery; Quality: Normal Respiration Rate 2019-09-28 16 /min Quality: Normal Universi ty of 15:55:00 [place] Physician s BP Systolic 2019-08-15 116 mm[Hg] University of 11:33:00 [place] Physician s BP Diastolic 2019-08-15 70 mm[Hg] University of 11:33:00 [place] Physician s Height 2019-08-15 60 [in_us] University of 11:33:00 [place] Physician s Weight 2019-08-15 211.25 [lb_av] University of 11:33:00 [place] Physician s Body Mass Index 2019-08-15 41.26 kg/m2 University o f Calculated 11:33:00 [place] Physician s Temperature 2019-08-15 97.1 [degF] Method: Oral University of 11:33:00 [place] Physician s Heart Rate 2019-08-15 83 /min University of 11:33:00 [place] Physician s O2 SAT 2019-08-15 95 % University of 11:33:00 [place] Physician s BP Systolic 2019-08-03 91 mm[Hg] Location: [facility]; [place] of 15:05:00 Position: [place] Physician s Sitting BP Diastolic 2019-08-03 57 mm[Hg] Location: [facility]; [place] of 15:05:00 Position: [place] Physician s Sitting Height 2019-08-03 60 [in_us] University of 15:05:00 [place] Physician s Weight 2019-08-03 211 [lb_av] University of 15:05:00 [place] Physician s Body Mass Index 2019-08-03 41.21 kg/m2 University o f Calculated 15:05:00 [place] Physician s Heart Rate 2019-08-03 75 /min Location: R [place] of 15:05:00 Brachial [place] Physician s Artery; Respiration Rate 2019-08-03 18 /min Quality: Normal Universi ty of 15:05:00 [place] Physician s BP Systolic 2019-07-21 104 mm[Hg] Location: [facility]; [place] of 13:40:00 Position: [place] Physician s Sitting BP Diastolic 2019-07-21 66 mm[Hg] Location: [facility]; [facility] 13:40:00 Position: [place] Physician s Sitting Height 2019-07-21 60 [in_us] University of 13:40:00 [place] Physician s Weight 2019-07-21 210 [lb_av] University of 13:40:00 [place] Physician s Body Mass Index 2019-07-21 41.01 kg/m2 University o f Calculated 13:40:00 [place] Physician s Temperature 2019-07-21 96.9 [degF] Method: Oral University of 13:40:00 [place] Physician s Heart Rate 2019-07-21 69 /min University of 13:40:00 [place] Physician s O2 SAT 2019-07-21 99 % University of 13:40:00 [place] Physician s BP Systolic 2019-07-17 106 mm[Hg] Location: [place]; [place] of 13:47:00 Position: [place] Physician s Sitting BP Diastolic 2019-07-17 72 mm[Hg] Location: [place]; [facility] 13:47:00 Position: [place] Physician s Sitting Height 2019-07-17 60 [in_us] University of 13:47:00 [place] Physician s Weight 2019-07-17 212 [lb_av] University of 13:47:00 [place] Physician s Body Mass Index 2019-07-17 41.4 kg/m2 University o f Calculated 13:47:00 [place] Physician s Temperature 2019-07-17 97.7 [degF] Method: Oral University of 13:47:00 [place] Physician s Heart Rate 2019-07-17 104 /min University 13:47:00 [place] Physician s BP Systolic 2017-12-06 101 mm[Hg] Location: [facility]; [facility] 11:04:00 Position: [place] Physician s Sitting BP Diastolic 2017-12-06 66 mm[Hg] Location: [facility] 11:04:00 Position: [place] Physician s Sitting Height 2017-12-06 62 [in_us] University of 11:04:00 [place] Physician s Weight 2017-12-06 210.25 [lb_av] University of 11:04:00 [place] Physician s Body Mass Index 2017-12-06 38.46 kg/m2 [place] [facility] Calculated 11:04:00 [place] Physician s Temperature 2017-12-06 97.7 [degF] Method: Oral University 11:04:00 [place] Physician s Heart Rate 2017-12-06 97 /min Location: [facility] [place] 11:04:00 Brachial [place] Physician s Artery; Quality: Normal Respiration Rate 2017-12-06 18 /min Quality: Normal Universi ty of 11:04:00 [place] Physician s Procedures Procedure Date / Time Performing Clinician Source Performed [QL] TSH, 3RD GENERATION 2020-03-05 00:00:00 [facility] [place] [facility] [QL] T4, FREE 2020-03-05 00:00:00 [facility] o [facility] [place] [facility] [id number] 2019-11-27 00:00:00 ENCPL [id number] 2019-11-27 00:00:00 ENCPL [id number] 2019-11-27 00:00:00 ENCPL [id number] 2019-11-27 00:00:00 ENCPL [id number] 2019-11-27 00:00:00 ENCPL [id number] 2019-11-27 00:00:00 ENCPL [QLH] TSH, 3RD GENERATION 2019-10-31 00:00:00 [facility] [place] [facility] [id number] 2019-10-11 00:00:00 ENCPL [id number] 2019-10-11 00:00:00 ENCPL [id number] 2019-10-11 00:00:00 ENCPL [id number] 2019-10-11 00:00:00 ENCPL [id number] 2019-10-11 00:00:00 ENCPL [id number] 2019-10-11 00:00:00 ENCPL [id number] 2019-10-11 00:00:00 ENCPL [id number] 2019-10-11 00:00:00 ENCPL [id number] 2019-10-11 00:00:00 ENCPL [id number] 2019-10-11 00:00:00 ENCPL [id number] 2019-10-11 00:00:00 ENCPL [id number] 2019-10-11 00:00:00 ENCPL [id number] 2019-10-11 00:00:00 ENCPL 0W5T00S 2019-10-11 00:00:00 ENCPL 1H5P04B 2019-10-11 00:00:00 ENCPL [id number] 2019-10-11 00:00:00 ENCPL [id number] 2019-10-11 00:00:00 ENCPL [id number] 2019-10-11 00:00:00 ENCPL [id number] 2019-10-11 00:00:00 ENCPL [id number] 2019-10-11 00:00:00 ENCPL 1W4P29I 2019-10-11 00:00:00 ENCPL [id number] 2019-10-11 00:00:00 ENCPL [id number] 2019-10-11 00:00:00 ENCPL [id number] 2019-10-11 00:00:00 ENCPL 1L1P43H 2019-10-11 00:00:00 ENCPL [id number] 2019-10-11 00:00:00 ENCPL [id number] 2019-10-11 00:00:00 ENCPL [QLH] TSH, 3RD GENERATION 2019-09-28 00:00:00 [facility] [place] [facility] XRAY Ankle 3 views 2019-09-28 00:00:00 [facility] Bilateral [id number] Physicians XRAY Foot 3 views 2019-09-28 00:00:00 [facility] Bilateral [id number] Physicians XRAY Toe [id number] 2019-09-28 00:00:00 [facility] Physicians CVRAD - Hemodialysis 2019-07-21 00:00:00 [facility] Access Duplex - [id number] Physicians CVRAD - Left Upper Vein 2017-12-09 00:00:00 [facility] Mapping Limited - [id number] Physicia ns [[facility]] HEPATITIS B CORE AB 2017-11-09 [facility]] HEPATITIS PANEL 2017-11-09 00:00:00 [facility] Physicians [[facility]] HEPATITIS B SURFACE 2017-11-09 00:00:00 Un [facility] ANTIBODY (QUANT) Physicians History of Thyroid Surgery [facility] Substernal Thyroidectomy Physici ans History of Thyroid Surgery [facility] Luiz-Thyroidectomy Left Physicia ns Lobe History of Colostomy [facility] Physicians History of Cholecystectomy [facility] Physicians History of Hernia Repair [facility] Physicians History of Laminectomy [facility] Lumbar Physicians History of Arteriovenous [facility] fistula creation procedure Physi cians History of [facility] Gastrointestinal surgery Physici ans Plan of Care Planned Activity Planned Date Details Comments Source Diagnostic Test 2019-07-21 CVRAD - Hemodialysis [facility] Pending 00:00:00 Access Duplex - [id number] Physic ians [code = [id number]] Future Appointment 2020-09-03 Donna WOODS [facility] 10:20:00 Physicians Future Appointment 2020-06-17 Donna ASTORGA [facility] 16:00:00 LOLITA Physicians Future Appointment 2020-05-07 Donna HENSON [facility] 13:30:00 Nelson MARSH Encounters Start End Encounter Admission Attending Care Care Encounter Source Date/Time Date/Time Type Type Clinicians Facility Department ID 2019-11-15 Inpatient [facility] ED [id number] [facility] 06:09:00 2019-10-01 Inpatient U [facility] ED [id number] [facility] 01:07:00 2018-12-20 Inpatient E [facility] [id number] [facility] H 05:54:00 2020-04-22 2020-04-22 AppointDANITZA Rosado Psychiatry [id number] Univers 16:00:00 16:00:00 t; RIZWAN, Outpatient ity of Donna MCHUGH [facility] Physicjuana Thompson ans 2020-03-05 2020-03-05 Appointmen DANITZA JIMENEZ [facility] [id number] Univers 10:20:00 10:20:00 t; PEGGY JIMENEZ M.D. Surgery - ity of Donna WOODS [facility] Physici [facility] 2020-01-22 2020-01-22 Appointradha SILVA [facility] [id number] Univers 14:00:00 14:00:00 t; Brittney SETH M.D. Surgeons [facility] Reji SETH M.D. ([facility]) ans 2020-01-08 2020-01-08 AppointDANITZA Lawrence [facility] [id number] Univers 14:45:00 14:45:00 t; issac SETH M.D. [place] Josh SETH M.D. [facility] 2019-11-15 2019-11-15 Akua SILVA [facility] Family [id number] Univers 08:00:00 08:00:00 t; Nohelia SETH - it Kaiden M.D. [facility] Nathan SETH M.D. [facility] 2019-11-15 2019-11-15 Appointradha DOUGH[facility] [id number] Univers 07:30:00 07:30:00 t; Donna RICE [place] AMIT, M.D. Physi ci ans 2019-10-31 2019-10-31 Appointradha BOSCH [facility] [id number] Univers 14:00:00 14:00:00 t; W, cic & ity of DAVID HENSON, Vascular T matt EPPS M.D. Surgery - [facility]ic i [facility] 2019-10-31 2019-10-31 Appointradha MANCERA [facility] Family [id number] Univers 09:30:00 09:30:00 t; AMY, Medicine - ity vadnana MANCERA M.D. [facility] Physici M.DFormerly [facility] 2019-10-10 2019-10-10 Appointmen LENORE[facility]IMANSHU [facility] [id number] Univers 14:00:00 14:00:00 t; W, ity of DAVID HENSON, Te evy EPPS [facility]. [facility] 2019-10-10 2019-10-10 Appointmen TONY, [facility] [id number] Univers 11:20:00 11:20:00 t; PEGGY JIMENEZ M.D. i ty of Donna WOODS [facility] 2019-09-28 2019-09-28 Appointmen ADELSO [facility] Family [id number] Univers 15:30:00 15:30:00 t; LIANET DARDEN, Medicine - ity of Donna [facility]I [facility] 2019-08-15 2019-08-15 Appointmen [facility] [id number] Univers 11:15:00 11:15:00 t; W, cic & ity of DAVID HENSON, Vascular T matt EPPS M.D. [facility] - [facility]ic [facility] [place] 2019-08-11 2019-08-11 Appointmen LOLITA [facility] Psychiatry [id number] Univers 16:00:00 16:00:00 t; RIZWAN, Outpatient ity of Donna MCHUGH [facility] SMOOTH ASTORGA Physicjuana Thompson [facility] 2019-08-03 2019-08-03 Appointmen TRI [facility] Multispecia [id number] Univers 15:00:00 15:00:00 t; GRABIEL BARTLETT M.D. lty - i ty of Carlotta SPAIN [place] Donna Physici [facility] 2019-07-31 2019-07-31 Appointmen LOLITA, [facility] [id number] Univers 15:00:00 15:00:00 t; issac ASTORGA of Donna MCHUGH [place] Josh ASTORGA M.D. ans 2019-07-25 2019-07-25 Appointmen JOSE JUAN, [facility] Minimally [id number] Univers 11:00:00 11:00:00 t; Donna MEEK Invasive it y of JOSE JUAN Surgeons of Jaime kwaku MEEK M.D. [place] Physi ([facility]) ans 2019-07-26 2019-07-24 Inpatient U [facility] [id number] [facility] 11:35:00 12:26:00 2019-07-21 2019-07-21 Appointmen [facility] Cardiothora [id number] Univers 12:00:00 12:00:00 t; W, cic & ity of DAVID HENSON Vascular T matt EPPS M.D. Surgery - Physic Reji [facility] 2019-07-21 2019-07-[facility] VASCULAR, [facility] UTP [id number] Univers 10:00:00 10:00:00 t; [facility] Physici [facility] 2019-07-17 2019-07-17 Appointmen RICARDO, [facility] Minimally [id number] Univers 14:00:00 14:00:00 t; DORINDA Invasive ity of Donna SILVA Surgeons of Reji Martines M.D. ([facility]) ans 2019-06-13 2019-06-13 [facility] Cardiothora [id number] Univers 10:00:00 10:00:00 t; W, cic & ity of DAVID HENSON Vascular T matt EPPS M.D. Surgery - Physic SIXTO Jeanie [facility] Donna 2019-06-12 2019-06-12 Appointmen FARHAT, [facility] UTP [id number] Univers 14:45:00 14:45:00 t; Donna RICE [place] AMIT, M.D. Physi ci ans 2019-05-30 2019-05-30 Appointmen FARHAT, [facility] UTP [id number] Univers 12:00:00 12:00:00 t; Donna RICE [place] AMIT, M.D. Physi ci ans 2019-05-30 2019-05-30 Outpatient MHFB MHFB [id number] MHFB 10:24:00 10:24:00 2019-05-11 2019-05-11 Appointmen CARLOTTA, [facility] UTP [id number] Univers 16:00:00 16:00:00 t; ECHO ity of [place], [place] ECHO Physici ans 2019-05-11 2019-05-11 Appointmen TRI, UTP UTP [id number] Univers 14:45:00 14:45:00 t; GRABIEL BARTLETT M.D. i anastacia of Reji SPAIN M.D. Physici ans 2019-05-01 2019-05-01 Appointmen LOLITA, [facility] UTP [id number] Univers 15:00:00 15:00:00 t; Antonia ASTORGA M.D. [place] Josh ASTORGA M.D. ans 2019-04-25 2019-04-25 Appointmen DOUGHERTY, [facility] UTP [id number] Univers 14:30:00 14:30:00 t; Donna RICE Reji RICE M.D. [facility] ans 2019-04-24 2019-04-24 Appointmen ANDHEIDE, [facility] UTP [id number] Univers 14:30:00 14:30:00 t; issac SETH M.D. [place] Josh SETH M.D. ans 2019-04-03 2019-04-03 Appointmen ANDHEIDE, [facility] UTP [id number] Univers 13:00:00 13:00:00 t; issac SETH M.D. [place] Josh SETH M.D. ans 2019-03-27 2019-03-27 Appointmen RUPESH, [facility] UTP [id number] Univers 14:45:00 14:45:00 t; Donna CANALES [place] Josh CANALES M.D. ans 2019-03-21 2019-03-21 Appointmen GALILEO [facility] UTP [id number] Univers 11:15:00 11:15:00 t; Chaim Mariscal [place] Santamaria ans M.D. 2019-03-21 2019-03-21 Appointmen VASCULAR, [facility] UTP [id number] Univers 09:30:00 09:30:00 t; [facility] ity of VASCULAR, [facility] Physici ans 2019-02-23 2019-02-23 Appointmen JANELL, [facility] UTP [id number] Univers 13:45:00 13:45:00 t; LIVAN MACIEL i ty of Donna LICONA [place] Donna Physici ans 2019-02-14 2019-02-14 Appointmen LENORE-BRIAN [facility] UTP [id number] Univers 13:30:00 13:30:00 t; W ity of [place] HERNANDEZ M.D. Physic shalom HENSON M.D. 2019-01-25 2019-01-25 Outpatient [facility] [id number] [facility] 05:46:00 05:46:00 2019-01-16 2019-01-16 Appointmen GINNY, [facility] UTP [id number] Univers 13:45:00 13:45:00 t; JHONATAN GROSS M.D. ity of Reji ISRAEL M.D. Physici ans 2019-01-16 2019-01-16 Appointmen VASCULAR, [facility] UTP [id number] Univers 09:30:00 09:30:00 t; [facility] ity of VASCULAR, [facility] Physici ans 2019-01-06 2019-01-06 Appointmen LOLITA, [facility] UTP [id number] Univers 15:00:00 15:00:00 t; Antonia ASTORGA M.D. [place] Josh ASTORGA M.D. [facility] 2019-01-05 2019-01-05 Appointmen GINNY, [facility] UTP [id number] Univers 13:45:00 13:45:00 t; JHONTAAN GROSS M.D. ity of Reji ISRAEL M.D. Physici ans 2019-01-03 2019-01-03 Appointmen TONY, [facility] UTP [id number] Univers 10:20:00 10:20:00 t; PEGGY JIMENEZ M.D. i ty of Donna WOODS [place] Physici ans 2019-01-02 2019-01-02 Outpatient [facility] [address] [facility] 06:15:00 06:15:00 2018-12-28 2018-12-28 Appointmen GINNY, UTP UTP [id number] Univers 15:00:00 15:00:00 t; JHONATAN GROSS M.D. ity of Reji ISRAEL M.D. Physici ans 2018-12-28 2018-12-28 Appointmen FARHAT, UTP UTP [id number] Univers 14:30:00 14:30:00 t; Donna [facility] ci ans 2018-12-28 2018-12-28 Outpatient [facility] [id number] [facility] 14:09:00 14:09:00 2018-12-28 2018-12-28 Appointmen VASCULAR, UTP UTP [id number] Univers 08:30:00 08:30:00 t; [facility] ity of VASCULAR, [facility] Physici ans 2018-11-28 2018-11-28 Appointmen VASCULAR, UTP UTP [id number] Univers 11:45:00 11:45:00 t; SURGERY ity of VASCULAR, [place] [facility] Physici ans 2018-11-22 2018-11-22 Appointmen VASCULAR, UTP UTP [id number] Univers 13:30:00 13:30:00 t; SURGERY ity of VASCULAR, [place] SURGERY Physici ans 2018-11-11 2018-11-11 Appointmen SETH, UTP UTP [id number] Univers 12:00:00 12:00:00 t; ROSELYN ANN M.D. ity of Donna DEMPSEY [place] Physici ans 2018-10-27 2018-10-27 Appointmen LENORE-BRIAN UTP UTP [id number] Univers 14:00:00 14:00:00 t; W, ity of [place] HERNANDEZ M.D. Physic shalom HENSON M.D. 2018-10-27 2018-10-27 Appointmen VASCULAR, UTP UTP [id number] Univers 12:00:00 12:00:00 t; [facility] ity of VASCULAR, [facility] Physici ans 2018-10-17 2018-10-17 Appointmen ANDRASSY, UTP UTP [id number] Univers 10:00:00 10:00:00 t; issac SETH M.D. [place] Josh SETH M.D. ans 2018-10-14 2018-10-14 Appointmen LOWNHI, [facility] UTP [id number] Univers 09:15:00 09:15:00 t; RADHA HOLDEN, Janine M.D. [place] M.DOtilia Physici ans 2018-08-25 2018-08-25 Appointmen JANELL, [facility] UTP [id number] Univers 13:00:00 13:00:00 t; LIVAN MACIEL i ty of CHRISTINE, M.D. [place] Justyna.DOtilia Physici ans 2018-08-15 2018-08-15 Appointmen HAWAYOVANY, UTP UTP [id number] Univers 09:30:00 09:30:00 t; issac SETH M.D. [place] Josh SETH M.D. ans 2018-08-09 2018-08-09 Appointmen LENOREHIMANSHU UTP UTP [id number] Univers 11:15:00 11:15:00 t; W, ity of [place] HERNANDEZ M.D. Physici SIXTO, [facility] M.DOtilia 2018-07-26 2018-07-26 Appointmen JANELL, [facility] UTP [id number] Univers 13:00:00 13:00:00 t; LIVAN MACIEL i ty of CHRISTINE, M.D. [place] Justyna.James Physici ans 2018-07-19 2018-07-19 Appointmen LENORE-OU UTP UTP [id number] Univers 10:30:00 10:30:00 t; W, ity of [place] HERNANDEZ M.D. Physici SIXTO [facility] M.DOtilia 2018-07-15 2018-07-15 Appointmen NAVIN, UTP UTP [id number] Univers 09:45:00 09:45:00 t; RADHA HOLDEN ity of SUMANA, M.D. [place] MOtiliaDOtilia Physici ans 2018-07-05 2018-07-05 Appointmen TONY, UTP UTP [id number] Univers 10:40:00 10:40:00 t; PEGGY JIMENEZ M.D. i ty of Donna WOODS [place] Physici ans 2018-06-30 2018-06-30 Appointmen GENERAL, UTP UTP [id number] Univers 14:00:00 14:00:00 t; [facility] 2018-06-28 2018-06-28 [facility] [id number] 16:29:00 16:29:00 t [facility] [place] 2018-06-28 2018-06-28 Appointmen JANELL, UTP UTP [id number] Univers 13:00:00 13:00:00 t; LIVAN MACIEL, juana ty of Donna LICONA [place] Donna Physici ans 2018-06-23 2018-06-23 [facility] [id number] 11:50:00 11:50:00 t [facility] [place] 2018-06-22 2018-06-22 [facility] [id number] 08:44:00 08:44:00 t [facility] [place] 2018-06-21 2018-06-21 [facility] [id number] 13:07:00 13:07:00 t [facility] 2018-06-20 2018-06-20 [facility] [id number] 10:00:00 10:00:00 t [facility] ent Clinics 2018-06-17 2018-06-17 Appointmen MED UTP UTP [id number] Univers 10:00:00 10:00:00 t; MED PROVIDER, ity of PROVIDER, [facility] Physici ans 2018-06-16 2018-06-16 Appointmen GENERAL, UTP UTP [id number] Univers 13:00:00 13:00:00 t; SERVICE ity [place], [place] SERVICE Physici ans 2018-05-17 2018-05-17 Appointmen Amaris, [facility] UTP [id number] Univers 13:00:00 13:00:00 t; Donna Woodruff y of [place], [place] Josh Woodruff M.D. ans 2018-05-11 2018-05-[facility] FARHAT, [facility] UTP [id number] Univers 10:30:00 10:30:00 t; Donna RICE [facility] Reji RICE M.D. Physi ci ans 2018-05-03 2018-05-[facility] Amaris, [facility] UTP [id number] Univers 11:30:00 11:30:00 t; Donna Woodruff y of [place], [place] Josh Woodruff M.D. ans 2018-04-26 2018-04-26 [facility] CHRIS, [facility] UTP [id number] Univers 11:00:00 11:00:00 t; issac TOMLINSON M.D. [place] Josh TOMLINSON M.D. ans 2018-04-22 2018-04-22 [facility] NAVIN, [facility] UTP [id number] Univers 09:15:00 09:15:00 t; RADHA HOLDEN ity of SUMANA, M.D. [place] M.D. Physici ans 2018-04-13 2018-04-13 [facility] FARHAT, [facility] UTP [id number] Univers 10:30:00 10:30:00 t; Donna RICE [facility] Reji RICE M.D. Physi ci ans 2018-03-24 2018-03-24 [facility] DOUGHERTY, [facility] UTP [id number] Univers 17:00:00 17:00:00 t; Donna RICE [facility] Reji RICE M.D. Physi ci ans 2018-03-17 2018-03-[facility] JOANN, [facility] UTP [id number] Univers 10:30:00 10:30:00 t; MARYBETH DAVID ity of SHEILA, M.D. [place] M.D. Physici ans 2018-03-08 2018-03-[facility] Amaris, [facility] UTP [id number] Univers 10:15:00 10:15:00 t; Donna Woodruff it y of [place], [place] Josh Woodruff.Pb. ans 2018-02-15 2018-02-15 Appointmen LETY, [facility] UTP [id number] Univers 12:00:00 12:00:00 t; ADEEL DAVIDSON, i ty of [facility] Physici ans 2018-02-08 2018-02-08 Appointmen Amaris, UTP [facility] [id number] Univers 13:45:00 13:45:00 t; Donna Woodruff it y of [place], [place] Josh Woodruff M.D. ans 2018-01-19 2018-01-19 Appointmen JOANN, UTP [facility] [id number] Univers 10:30:00 10:30:00 t; MARYBETH DAVID ity of [place], M.D. [place] Donna Physici ans 2018-01-19 2018-01-19 Appointmen VASCULAR, UTP [facility] [id number] Univers 09:00:00 09:00:00 t; [place] o f VASCULAR, [facility] Physici ans 2017-12-27 2017-12-27 Appointmen JOANN, UTP [place] [id number] Univers 09:00:00 09:00:00 t; MARYBETH DAVID Multi ity of [place], M.D. Specialty [place] Donna Physici ans 2017-12-09 2017-12-09 Appointmen VASCULAR, UTP [place] [id number] Univers 12:00:00 12:00:00 t; CARLOTTA choudharyy o f VASCULAR, Specialty [facility] Physici ans 2017-12-06 2017-12-06 Appointmen JOANN, UTP [place] [id number] Univers 10:45:00 10:45:00 t; MARYBETH DAVID Multi ity of [place], M.D. [facility] ans 2017-10-14 2017-10-14 Appointmen CATHRYN, UTP UTP [id number] Univers 15:00:00 15:00:00 t; [place] LOCKETT M.D. ity Reji CASIANO M.D. Physici ans 2017-07-08 2017-07-08 [facility] UTP [id number] Univers 14:45:00 14:45:00 t; [place] LOCKETT [facility]. [facility] ans 2017-03-04 2017-03-04 [facility] [id number] Univers 14:15:00 14:15:00 t; [place] LOCKETT M.D. [facility] ans 2016-12-31 2016-12-31 [facility] UTP [id number] Univers 14:30:00 14:30:00 t; [place] LOCKETT M.D. [facility]ici ans 2016-09-15 2016-09-15 [facility] UTP [id number] Univers 14:00:00 14:00:00 t; FEDERICO CASTRO M.D. ity of Donna CABALLERO [place] Physici ans 2016-09-03 2016-09-03 [facility] UTP [id number] Univers 14:30:00 14:30:00 t; [place] LOCKETT M.D. itsourav of [facility] ans 2016-06-11 2016-06-11 [facility] UTP [id number] Univers 14:15:00 14:15:00 t; [place] LOCKETT M.D. [facility]rav [facility] ans 2016-05-07 2016-05-07 [facility] UTP [id number] Univers 14:45:00 14:45:00 t; [place] LOCKETT M.D. itsourav of [facility]ici ans 2016-02-06 2016-02-06 [facility] CATHRYN, [facility] UTP [id number] Univers 14:45:00 14:45:00 t; [place] LOCKETT M.D. itsourav of [facility] Physici ans Results Test Description Test Time Test Comments Results Result Comments Source [QL] T4, FREE 2020-03-05 11:15:00 Test Item Value Reference Range Interpretation Comme nts T4, FREE (test code = T4, 1.3 ng/dl 0.8-1.8 N SP ECIMEN RECEIVED DATE AND TIME: FREE) [facility][] [facility], 3RD [id number] 11:15:00 Test Item Value Reference Range Interpretation Comments TSH; Normal (test 3.44 {MIU/L} 0.40-4.50 N SPECIMEN R ECEIVED DATE code = 58561-9) AND TIME: [facility][O] Hemoglobin A1c (in office)2020-03-05 10:57:00 Test Item Value Reference Range Interpretation Comments HEMOGLOBIN A1c (test code = 4548-4) 5.5 [facility]iciansGlucose ([facility] of Care In Office)2020-03-05 10:40:00 Test Item Value Reference Range Interpretation Comments Glucose POC Lifescan (test code = 106 A Glucose POC Lifescan) [facility]] [facility], 3RD [id number] 11:28:01 Test Item Value Reference Range Interpretation Comments TSH; Above High Threshold 12.500 {uIU/ml} 0.360-3.740 (test code = 34714-7) [facility]] TSH, 3RD [id number] 18:28:01 Test Item Value Reference Range Interpretation Comments TSH; Above High Threshold 7.540 {uIU/ml} 0.360-3.740 (test code = 05864-6) [facility] PhysiciansCOMPREHENSIVE METABOLIC [id number] 08:10:00 Test Item Value Reference Range Interpretation Comments SODIUM (test code = 138 MMOL/L 136-143 N NA) POTASSIUM (test code 4.8 MMOL/L 3.5-5.1 N = K) CHLORIDE (test code = 93 MMOL/L 98-107 L CL) CARBON DIOXIDE (test 32 mmol/L 24-31 H code = CO2) GLUCOSE (test code = 147 mg/dL 70-104 H GLU) BLOOD UREA NITROGEN 43.8 MG/DL 7.0-21.0 H (test code = BUN) GLOMERULAR FILTRATION 7 >60 L The es timated RATE (test code = glomerular filtration GFR) rate is compute d usingpatient ra ce, age (>18), sex, and serum creatinine. If anyof the needed data elements are mi ssing the Laboratory cannot compute an noe mation of the glomerul ar filtration rate . CREATININE (test code 6.7 mg/dL 0.8-1.5 H = CREAT) TOTAL PROTEIN (test 6.6 g/dL 6.3-8.3 N code = PROT) ALBUMIN (test code = 3.9 G/DL 3.5-5.0 N ALB) CALCIUM (test code = 10.2 mg/dL 8.8-10.2 N CA) BILIRUBIN TOTAL (test 0.3 mg/dL 0.2-1.0 N code = BILT) SGOT/AST (test code = 7 IU/L 10-34 L AST) SGPT/ALT (test code = 6 U/L 10-36 L ALT) ALKALINE PHOSPHATASE 101 U/L 32-104 N (test code = ALKP) PROTHROMBIN [id number] 08:01:00 Test Item Value Reference Range Interpretation Comments PROTHROMBIN TIME 13.9 SECONDS 10.3-12.9 H PATIENT (test code = PTP) INTERNATIONAL 1.19 INR UNIT 0.9-1.11 H The INR is us eful only NORMAL RATIO (test for monit oring code = INR) anticoagulant therapy.It may be unreliable in t he initial phase o f antigoagulation and in unstable patien ts. Indication for Anticoagulation Recommend ed INR 1. Prevention o f venous thomboembolism 2.0-3.0in high -risk patients; treat ment of venousthrombosi s and pulmonary embol ism aftera course o f heparin; preven tion of systemicembolis m in a variety of cond itions, including atria l fibrillation an d prothetic tissu e heart valves, 2. Pros thetic mechanical hear t valves; 2.5-3.5recurren t systemic emboli sm. THROMBOPLASTIN TIME [id number] 08:01:00 Test Item Value Reference Range Interpretation Comments THROMBOPLASTIN TIME 32.1 SECONDS 26.0-35.9 N INTERPRE TATIVE PARTIAL (test code = DATA: erapeutic PTT) range: Unfractionated heparin:47 - 71 seconds Argatroban:1.5 to 3 times the basel ine PTT COMPREHENSIVE METABOLIC [id number] 07:55:00 Test Item Value Reference Range Interpretation Comments SODIUM (test code = MMOL/L 136-143 NA) POTASSIUM (test code MMOL/L 3.5-5.1 = K) CHLORIDE (test code = MMOL/L 98-107 CL) CARBON DIOXIDE (test 32 mmol/L 24-31 H code = CO2) GLUCOSE (test code = 147 mg/dL 70-104 H GLU) BLOOD UREA NITROGEN 43.8 MG/DL 7.0-21.0 H (test code = BUN) GLOMERULAR FILTRATION 7 >60 L The es timated RATE (test code = glomerular filtration GFR) rate is compute d usingpatient ra ce, age (>18), sex, and serum creatinine. If anyof the needed data elements are mi ssing the Laboratory cannot compute an noe mation of the glomerul ar filtration rate . CREATININE (test code 6.7 mg/dL 0.8-1.5 H = CREAT) TOTAL PROTEIN (test 6.6 g/dL 6.3-8.3 N code = PROT) ALBUMIN (test code = 3.9 G/DL 3.5-5.0 N ALB) CALCIUM (test code = 10.2 mg/dL 8.8-10.2 N CA) BILIRUBIN TOTAL (test 0.3 mg/dL 0.2-1.0 N code = BILT) SGOT/AST (test code = 7 IU/L 10-34 L AST) SGPT/ALT (test code = 6 U/L 10-36 L ALT) ALKALINE PHOSPHATASE 101 U/L 32-104 N (test code = ALKP) HGBA1C - GLYCOSYLATED [id number] 07:52:00 Test Item Value Reference Range Interpretation Comments GLYCOSYLATED HEMOGLOBIN 6.1 % 0.0-5.6 H INTE RPRETATIVE (HA1C) (test code = DATA:HGB A1C levels above GLYHGB) the established reference range are anind ication of hyperglycemia d uring the preceeding 2 - 3months orlonger. HBA1C levels may reach 20% o r higher in poorlycontro lled diabetes. Thera peutic action is sugge sted atlevels above 8%.Diabetic pat ients with HBA1C levels be low 7% meet the goalof the [place] Diabet es Association. No rmal: <5.7Pre-Diabete s: 5.7 6.4Diabetic: >6.5Therapeutic goal for glycemic contro l: <7.0 CBC W/AUTO [id number] 07:45:00 Test Item Value Reference Range Interpretation Comments WHITE BLOOD CELL (test code = 10.5 x10 3/uL 4.8-10.8 N WBC) RED BLOOD CELL (test code = 4.23 x10 6/uL 4.20-5.40 N RBC) HEMOGLOBIN (test code = HGB) 12.5 g/dL 14.5-20 L HEMATOCRIT (test code = HCT) 40.7 % 37.0-47.0 N MEAN CELL VOLUME (test code = 96.2 fL 81.0-99.0 N MCV) MEAN CELL HGB (test code = MCH) 29.6 pg 27-31 N MEAN CELL HGB CONCENTRATION 30.7 G/DL 33-36.5 L (test code = MCHC) RED CELL DISTRIBUTION WIDTH 14.9 % 12.9-16.9 N (test code = RDW) PLATELET COUNT (test code = 206 150-440 N PLT) MEAN PLATELET VOLUME (test code 10.7 fL 8.9-12.4 N = MPV) NEUTROPHIL % (test code = NT%) 63.5 % 42.2-75.2 N LYMPHOCYTE % (test code = LY%) 23.2 % 20.5-51.1 N MONOCYTE % (test code = MO%) 9.4 % 1.7-9.3 H EOSINOPHIL % (test code = EO%) 2.6 % 0.0-7.0 N BASOPHIL % (test code = BA%) 0.7 % 0-2.5 N NEUTROPHIL # (test code = NT#) 6.69 x10 3/uL 1.80-7.70 N LYMPHOCYTE # (test code = LY#) 2.44 x10 3/uL 1.00-4.80 N MONOCYTE # (test code = MO#) 0.99 x10 3/uL 0.00-0.80 H EOSINOPHIL # (test code = EO#) 0.27 x10 3/uL 0.00-0.45 N BASOPHIL # (test code = BA#) 0.07 x10 3/uL 0.0-0.20 N
--- OUTSIDE RECORDS SUMMARY | 2020-04-26 13:29 | XMS REPORT | Summary of Care ---
:1955 Author Name CALDERON Thompson Address Unavailable Unavailable , Care Team Providers [...] GREENE Unavailable Unavailable FARHAT GREENE Unavailable Unavailable LOLITA GREENE [facility] Unavailable Unavailable GINNY GREENE Unavailable [...] mg at bedtime Quantity: 90 Refills: 4 RZIWAN MCHUGH M.D. Start : 01-May-2019 Active Gabapentin 300 MG Oral Capsule TAKE 1 CAPSULE TWICE DAILY. Quantity: 180 Refills: 3 HAAWA Thompson, RIZWAN Start : 01-May-2019 Active Allopurinol [...] (finding) Vital Signs Date Test Result Details [id number] Systolic blood pressure 96 mm[Hg] Status: Comments: [...] 13:00 Encounter Diagnosis: Problem not documented Appointment; [facility] [place] On: 17-Jun-2018 10:00 Encounter Diagnosis: Problem not [...] :00 Encounter Diagnosis: Problem not documented Appointment; SIXTO MARSH M.D. On: 2018 11:15 Encounter Diagnosis: [...]
--- OUTSIDE RECORDS SUMMARY | 2020-04-26 13:30 | XMS REPORT | Summary of Care ---
:1955 Author Name Kamlesh SUPERVISOR WET ROOM Address Unavailable Unavailable , Care Team Providers Name Role Phone RICARDO Thompson Unavailable Unavailable CALDERON Thompson Unavailable Unavailable JANELL Thompson Unavailable Unavailable LOLITA Thompson Unavailable Unavailable NAVIN Thompson Unavailable Unavailable Kamlesh [employer]PER[employer] Unavailable Unavailable EMELI Thompson Unavailable Unavailable JANELL [...] 0 Active Eliquis 5 MG Oral Tablet Take 1 tablet by mouth twice a day Quantity: 180 Refills: 0 ALLY GODDARD M.D. Start : [...] (finding) Vital Signs Date Test Result Details [id number] Systolic blood pressure 96 mm[Hg] Status: Comments: [...] M.D. On: 2019 13:30 Interventions Provided Medication ChangesEliquis 5 MG Oral Tablet - Renew Instructions Name Dates Details Instructions not documented Encounters Appointment; ADEEL DAVIDSON APRN On: 15-Feb-2018 12 [...] 13:00 Encounter Diagnosis: Problem not documented Appointment; [facility] On: 17-Jun-2018 10:00 Encounter Diagnosis: Problem [...] Encounter Diagnosis: Problem not documented Appointment; JHONATAN RGOSS M.D. On: 05-Jan-2019 13:45 Encounter Diagnosis: Problem [...] not documented Appointment; SIXTO MARSH M.D. On: 2-Enzo-2 019 11:15 Encounter Diagnosis: Problem not documented [...] 4:00 Encounter Diagnosis: Problem not documented Appointment; [facility] On: 21-Jul-2019 10:00 Encounter Diagnosis: Problem not documented Appointment; SIXTO MARSH M.D. On: 019 12:00 Encounter Diagnosis: Problem not documented Appointment; [...]
--- OUTSIDE RECORDS SUMMARY | 2020-04-26 13:31 | XMS REPORT | Summary of Care ---
:1955 Author Name EMELI Thompson Address Unavailable Unavailable , Care Team Providers Name Role Phone RICARDO Thompson Unavailable Unavailable CALDERON Thompson Unavailable Unavailable JANELL Thompson Unavailable Unavailable LOLITA Thompson Unavailable Unavailable NAVIN Thompson Unavailable Unavailable Kamlesh FORBES Unavailable Unavailable EMELI Thompson Unavailable Unavailable JANELL GREENE Unavailable Unavailable TRI GREENE UT Unavailable Unavailable CALDERON GRENEE Unavailable Unavailable JOANN GREENE UT Unavailable Unavailable [...] (finding) Vital Signs Date Test Result Details [id number] Systolic blood pressure 96 mm[Hg] Status: Comments: [...] 4:00 Encounter Diagnosis: Problem not documented Appointment; [facility], [facility] On: 21-Jul-2019 10:00 Encounter Diagnosis: [...]
--- OUTSIDE RECORDS SUMMARY | 2020-04-26 13:32 | XMS REPORT | Summary of Care ---
:1955 Author Name LOLITA Thompson Address Unavailable Unavailable , Care Team [...] 1 MG Oral Tablet TAKE 1 TABLET BY MOUTH EVERY 12 HOURS NEEDED Quantity: 60 Refills: 3 LOLITA Thompson, RIZWAN [...] (finding) Vital Signs Date Test Result Details [id number] Systolic blood pressure 96 mm[Hg] Status: Comments: [...] M.D. On: 2019 13:30 Interventions Provided Medication ChangesclonazePAM 1 MG Oral Tablet - Renew Instructions Name [...] Encounter Diagnosis: Problem not documented Appointment; DAVI EPREZ M.D. On: 26-Apr-2018 11 :00 Encounter Diagnosis: Problem not documented Appointment; Ranjan Glez M.D. On: 03-May-2018 11:3 0 Encounter Diagnosis: Problem not documented Appointment; KRYSTAL DOUGHERTY M.D. On: 11-May-2018 10:30 Encounter Diagnosis: Problem not documented Appointment; Ranjan Glez M.D. On: 17-May-2018 13:0 0 Encounter Diagnosis: Problem not documented Appointment; [facility] On: 16-Jun-2018 13:00 Encounter Diagnosis: Problem not documented Appointment; [facility] On: 17-Jun-2018 10:00 Encounter Diagnosis: Problem [...] 4:00 Encounter Diagnosis: Problem not documented Appointment; [facility], [facility] On: 21-Jul-2019 10:00 Encounter [...]
--- OUTSIDE RECORDS SUMMARY | 2020-04-26 13:32 | XMS REPORT | Summary of Care ---
:1955 Author Name Rekha FORBES Address Unavailable Unavailable , Care Team Providers Name Role Phone TONY Thompson Unavailable Unavailable CALDERON Thompson Unavailable Unavailable LOLITA Thompson Unavailable Unavailable EMELI Thompson Unavailable Unavailable JANELL GREENE Unavailable Unavailable TRI GREENE UT Unavailable Unavailable CALDERON GREENE Unavailable Unavailable FRANCISCO CHAMBERS MD Unavailable Unavailable JOANN GREENE UT Unavailable Unavailable ELI GREENE, STEFF Unavailable Unavailable Mary GREENE Unavailable Unavailable JANELL Thompson Unavailable Unavailable MAXIMO GREENE Unavailable Unavailable Rudolph GREENE Unavailable Unavailable RICARDO GREENE Unavailable Unavailable CATHRYN GREENE Unavailable Unavailable FARHAT GREENE Unavailable Unavailable STEFF BENITEZ MD Unavailable Unavailable LOLITA GREENE UT Unavailable Unavailable [...] iron deficiency anemia (280.1, D50.8) Status: Active Pre-op exam (V72.84, Z01.818) Status: [...] ankle, initial encounter (959.7, S99.912A) Status: Active Hematoma of hip (924.01, S70.00XA) Statu s: Active Enterocutaneous fistula (569.81, K63.2) Status: Active Diabetes mellitus type 2, uncontrolled (250.02, E11.65) Status: Active Hypothyroidism, postsurgical (244.0, E89.0) Status: Active Medications Name Dates Details Levothyroxine Sodium 150 MCG Oral Tablet TAKE 1 TABLET BY MOUTH EVERY DAY Quantity: 90 Refills: 0 AMY MANCERA M.D. Start : 28-Feb-2015 Active Eliquis 5 MG Oral Tablet Take 1 tablet by mouth twice a day Quantity: 180 Refills: 0 ALLY GODDARD M.D. Start : 17-Jun-2018 Active clonazePAM 0.5 MG Oral Tablet take 0.5 mg qd and 1 mg qhs Quantity: 90 Refills: 3 RIZWAN MCHUGH M.D. Start : 15-Jul-2018 Active Escitalopram Oxalate 20 MG Oral Tablet [...] 2.5 MG Oral Tablet Refills: 0 Active clonazePAM 1 MG Oral Tablet TAKE 1 TABLET BY MOUTH EVERY 12 HOURS NEEDED Quantity: 60 Refills: 3 RIZWAN MCHUGH M.D. Start : 11-Aug-2019 Active Tradjenta 5 MG Oral Tablet TAKE 1 TABLET DAILY Refills: 0 CILLO M.D., PEGGY Start : 05-Mar-2020 Active Allergies and Adverse Reactions Name Dates [...] Dates Details [QL] TSH, 3RD GENERATION Date: 05-Mar-2020 [QL] T4, FREE Date: 05-Mar-2020 History of Thyroid Surgery Substernal Thyroidectomy Completed History of Thyroid Surgery Luiz-Thyroidectomy Left Lobe Completed History of Colostomy Completed History of Cholecystectomy Completed History of Hernia Repair Completed History of Laminectomy Lumbar Completed History of Arteriovenous fistula creation procedure Completed History of Gastrointestinal surgery Comp leted Immunization Name Dates Details Pneumococcal polysaccharide vaccine, [...] (finding) Vital Signs Date Test Result Details No Known Vitals to report Results Date Description Value Details [id number] Glucose (Point of Care In Office) Glucose POC Lifescan 106 (Abnormal) [id number] [O] Hemoglobin A1c (in office) HEMOGLOBIN A1c 5.5 Plan of Care Name Dates Details Planned Observations Planned Goals not documented Planned Encounters Appointment; PEGGY JIMENEZ M.D. On: 03-Sep-2020 10:20 Interventions Provided Labs/Procedures/Imaging[QL] T4, FREE; To Be Done: 05 Mar 2020[QL] TSH, 3RD GENERATION; To Be Done: 05 Mar 2020Discussion/Summary#T2DM#ESRD on HD#h/o severe hypoglycemiaContinue Tradjenta 5 mg/dA1c 5.5% today (likely affected by ESRD) however home BG reported are in good rangeShe will have eye appt when she is more comfortable with pandemic#postsurgical hypothyroidismOn LT4 150 mcg daily. TSH 12 in . Managed by PCP.I will repeat TFTs. It is possible her current medications are affecting absorption of LT4. She willstart taking LT4 in evening trying to keep it at 4 hours after last medication doses and mealsRTC in 6 months>50% of visit spent counseling on diabetes, ESRD with relation to A1c, complications, thyroid medication and absorption, and coordination of care. total time 40 min. Instructions Name Dates Details Instructions not documented Encounters Appointment; Ranjan Glez M.D. On: 08-Mar-2018 10:1 [...] 13:00 Encounter Diagnosis: Problem not documented Appointment; [facility], [facility] On: 17-Jun-2018 10:00 Encounter Diagnosis: Problem not [...] Encounter Diagnosis: Problem not documented Appointment; VASCULAR, [facility] On: 27-Oct-2018 12:00 Encounter Diagnosis: Problem not [...] Encounter Diagnosis: Problem not documented Appointment; RIZWAN MCHGUH M.D. On: 06-Jan-2019 15 :00 Encounter Diagnosis: [...] 4:00 Encounter Diagnosis: Problem not documented Appointment; [facility], [facility] On: 21-Jul-2019 10:00 Encounter Diagnosis: [...] 14 :00 Encounter Diagnosis: Problem not documented Appointment; PEGGY JIMENEZ M.D. On: 05-Mar-2020 10:20 Encounter Diagnosis: Problem not documented
--- OUTSIDE RECORDS SUMMARY | 2020-04-26 13:33 | XMS REPORT | Summary of Care ---
:1955 Author Name RICARDO Thompson Address Unavailable Unavailable , Care Team Providers Name Role Phone TONY Thompson Unavailable Unavailable CALDERON Thompson Unavailable Unavailable LOLITA Thompson Unavailable Unavailable EMELI Thompson Unavailable Unavailable JANELL GREENE Unavailable Unavailable TRI GREENE UT Unavailable Unavailable CALDERON GREENE Unavailable Unavailable FRANCISCO CHAMBERS MD Unavailable Unavailable JOANN GREENE UT Unavailable Unavailable STEFF BENITEZ MD Unavailable Unavailable Mary GREENE Unavailable Unavailable JANELL [...] Tablet TAKE 1 TABLET DAILY Refills: 0 PEGGY JIMENEZ M.D. Start : 05-Mar-2020 Active Allergies and Adverse [...] to report Results Date Description Value Details :40 Glucose (Point of Care In Office) Glucose POC Lifescan 106 (Abnormal) :57 [O] Hemoglobin A1c (in office) HEMOGLOBIN A1c 5.5 :15 [QL] T4, FREE T4, FREE 1.3 ng/dl (Normal) Range: 0.8-1 .8 Comments: SPECIM EN RECEIVED DATE AND TIME: :15 [QL] TSH, 3RD GENERATION Comments: REPOR T COMMENT:FASTING:UNKNOWN TSH 3.44 {MIU/L} (Normal) Range: 0. 40-4.50 Comments: SPECIM EN RECEIVED DATE AND TIME: Plan of Care Name Dates Details Planned Observations Planned Goals not documented Planned Encounters Appointment; PEGGY JIMENEZ M.D. On: 03-Sep-2020 10:20 Interventions Provided Discussion/Summary#T2DM#ESRD on HD#h/o severe hypoglycemiaContinue Tradjenta 5 mg/dA1c 5.5% today (likely affected by ESRD) however home BG reported are in good rangeShe will have eye appt when she is more comfortable with pandemic #postsurgical hypothyroidismOn LT4 150 mcg daily. TSH 12 in . Managed by PCP.I will repeat TFTs. It is possible her current medications are affecting absorption of LT4. She willstart taking LT4 in evening trying to keep it at 4 hours after last medication doses and mealsRTC in 6 months>50% of visit spent counseling on diabetes, ESRD with relation to A1c, complications, thyroid medi cation and absorption, and coordination of care. total [...] Encounter Diagnosis: Problem not documented Appointment; [facility] On: 17-Jun-2018 10:00 Encounter Diagnosis: Problem not [...] not documented Appointment; SIXTO MARSH M.D. On: 11:15 Encounter Diagnosis: Problem not documented Appointment; [...] 4:00 Encounter Diagnosis: Problem not documented Appointment; [facility], [facility] On: 21-Jul-2019 10:00 Encounter Diagnosis: Problem [...]
--- OUTSIDE RECORDS SUMMARY | 2020-04-26 13:34 | XMS REPORT | Summary of Care ---
:1955 Author Name Sami SAMPLE PATTERNMAKER Address [facility] Unavailable , Care Team Providers Name Role Phone TONY Thompson Unavailable Unavailable CALDERON Thompson Unavailable Unavailable LOLITA Thompson Unavailable Unavailable EMELI Thompson Unavailable Unavailable Janell GREENE Unavailable Unavailable RTI GREENE UT Unavailable Unavailable CALDERON GREENE Unavailable [...] MOUTH EVERY DAY Quantity: 90 Refills: 0 ALLY GODDARD M.D. Start : 28-Feb-2015 Active Eliquis 5 [...] BY MOUTH EVERY DAY Quantity: 90 Refills: 1 PEGGY JIMENEZ M.D. Start : 05-Mar-2020 Active [...] to report Results Date Description Value Details Results not documented Plan of Care Name Dates Details Planned Observations Planned Goals not documented Planned Encounters Appointment; RIZWAN MCHUGH M.D. On: 22-Apr-2020 16: 00 Appointment; PEGGY JIMENEZ M.D. On: 03-Sep-2020 10:20 Interventions Provided Medication ChangesLevothyroxine Sodium 150 MCG Oral Tablet - Renew Instructions Name Dates Details Instructions not documented Encounters Appointment; RADHA HOLDEN M.D. On: 22-Apr-2018 9:15 [...] Problem not documented Appointment; [facility] On: 17-Jun-2018 10:00 Encounter Diagnosis: Problem [...] 00 Encounter Diagnosis: Problem not documented Appointment; SXITO MARSH M.D. On: 2017 11:15 Encounter Diagnosis: [...] documented Appointment; SIXTO MARSH M.D. On: 019 14:00 Encounter Diagnosis: Problem not documented Appointment; [...]
--- OUTSIDE RECORDS SUMMARY | 2020-04-26 13:34 | XMS REPORT | Summary of Care ---
:1955 Author Name TONY Thompson Address Unavailable Unavailable , Care Team [...] M.D. On: 03-Sep-2020 10:20 Interventions Provided Medication ChangesTradjenta 5 MG Oral Tablet - Renew Instructions Name Dates Details Instructions not documented Encounters Appointment; MARYBETH DAVID M.D. On: 17-Mar-2018 10:3 [...] 13:00 Encounter Diagnosis: Problem not documented Appointment; [facility] On: 17-Jun-2018 10:00 Encounter Diagnosis: Problem [...] not documented Appointment; DORINDA SILAV M.D. On: 24-Apr-2019 14 :30 Encounter Diagnosis: [...]
--- OUTSIDE RECORDS SUMMARY | 2020-04-26 13:36 | XMS REPORT | Summary of Care ---
:1955 Author Name LOLITA Thompson Address Unavailable Unavailable , Care Team Providers Name Role Phone TONY Thompson Unavailable Unavailable LOLITA Thompson Unavailable Unavailable EMELI Thompson Unavailable Unavailable Janell GREENE Unavailable Unavailable TRI GREENE UT Unavailable [...] Active Colonic fistula (569.81, K63.2) Status: Active Effective bowel preparation for surgery Status: Active Depressive disorder (311, F32.9) Status: Active Right ankle injury (959.7, S99.911A) Sta tus: Active Injury of toe on right foot, initial encounter (959.7, S99.9 21A) Status: Active Injury of left ankle, initial encounter (959.7, S99.912A) Status: Active Hematoma of hip (924.01, S70.00XA) Statu s: Active Enterocutaneous fistula (569.81, K63.2) Status: Active Hypothyroidism, postsurgical (244.0, E89.0) Status: Active Anxiety (300.00, F41.9) Status: Active Neuropathy involving both lower extremities (356.9, G57.93) Status: Active Diabetes mellitus type 2, uncontrolled (250.02, E11.65) Status: Active Medications Name Dates Details Levothyroxine [...] MOUTH EVERY DAY Quantity: 90 Refills: 1 CILLO M.D. PEGGY Start : 05-Mar-2020 Active clonazePAM 1 MG Oral Tablet Disintegrating TAKE 1 TABLET DISSOLVE IN MOUTH TWICE A DAY Quantity: 60 Refills: 2 LOLITA Thompson, RIZWAN Start : 22-Apr-2020 Active clonazePAM 0.5 MG Oral Tablet Disintegrating klonazepam 0.5 mg qd prn break through anxiety Quantity: 30 Refills: 2 LOLITA Thompson, RIZWAN Start : 22-Apr-2020 Active Gabapentin 100 MG Oral Capsule TAKE 1 CAPSULE IN THE MORNING AND 2 CAPSULES IN THE EVENING. Quantity: 90 Refills: 1 LOLITA Thompson, RIZWAN Start : 22-Apr-2020 Active Allergies and Adverse Reactions Name Dates [...] Planned Encounters Appointment; RIZWAN MCHUGH M.D. On: 17-Jun-2020 16 :00 Appointment; PEGGY JIMENEZ M.D. On: 03-Sep-2020 10:20 Interventions Provided Medication ChangesclonazePAM 0.5 MG Oral Tablet Disintegrating - StartclonazePAM 1 MG Oral Tablet Disintegrating - StartEscitalopram Oxalate 20 MG Oral Tablet - RenewGabapentin 100 MG Oral Capsule - StartPlanLexapro k22Tyglibdn 1 mg wafers bid / plus 0,5 mg prnRTC in 8 weeks. Instructions Name Dates Details Instructions not documented [...] Encounter Diagnosis: Problem not documented Appointment; [facility] On: 17-Jun-2018 10:00 Encounter Diagnosis: Problem [...] 13:45 Encounter Diagnosis: Problem not documented Appointment; IRZWAN MCHUGH M.D. On: 06-Jan-2019 15 :00 Encounter [...] Encounter Diagnosis: Problem not documented Appointment; [facility], [facility] On: 21-Jul-2019 10:00 Encounter [...] 05-Mar-2020 10:20 Encounter Diagnosis: Problem not documented Appointment; RIZWAN MCHUGH M.D. On: 22-Apr-2020 16: 00 Encounter Diagnosis: Problem not documented
[2020-04-26] MEDS ORDERED: HYDROCODONE/APAP 5/325 MG TAB ONE (14:34)
--- NOTE | 2020-04-26 15:18 | RAD REPORT ---
EXAM DESCRIPTION: CT - C Spine Wo Con - 04/26/2020 2:38 pm CLINICAL HISTORY: Neck pain, trauma COMPARISON: None. TECHNIQUE: Axial 2 mm thick images of the cervical spine were obtained with sagittal and coronal rec onstruction images generated and reviewed. Angled axial reconstruction imaging was performed as well due to the severity of kyphosis. All CT scans are performed using dose optimization technique as appropriate and may include automated exposure control or mA/KV adjustment according to patient size. FINDINGS: Skull base imaging shows degenerative change involving each mandibular condyle at the TM j oint. No destructive change seen. Partial opacification of the left mastoid air cells present. The le ft middle ear is clear. No acute mastoid bone abnormality on the left. Right-side mastoid air cells a re clear. Patient has a normal variant fusion of the C1 ring to the skullbase. No pathologic change at this lev el. Very slight wedging of the C6 and C7 vertebrae noted. This is at a level of accentuated cervicoth oracic kyphosis. Patient has accentuated lordosis at the C2-C3 level. An acute cervical vertebral bod y fracture is not seen. The remaining vertebrae are normal in height. No subluxation abnormalities id entified. Significant degenerative disc disease and endplate degenerative change at C4-5. Schmorl's node and s clerotic endplate changes are evident. C6-7 and C7-T1 disc space narrowing seen with degenerative adrian nges to the endplates. Osteoporotic changes are present in the skeleton. Patient has advanced facet j oint degenerative change at multiple levels throughout the cervical spine. Joint space narrowing and bony hypertrophy changes are seen in the facet joints. There are several areas of serpiginous lucency present in the facet joints favored to be degenerative rather than fracture. In the prevertebral soft tissues of the lower cervical spine and extending into the upper chest ruba ing the C6 -T3 region there is a 6 centimeter CC x 3 centimeter diameter rounded soft tissue mass. No associated air or calcification. The mass appears to be associated with the right lateral wall of th e esophagus. Esophagus distal to the mass shows slight wall thickening. Central canal detail is inherently limited on CT imaging. IMPRESSION: A 6 x 3 x 3 cm mass is present in the prevertebral soft tissues C6-T3 region. This appea rs to be associated with the right lateral wall of the esophagus. Hematoma within the wall of the esophagus would be a possibility. Esophageal or mediastinal malignant process would be a primary consideration as well. Patient has advanced for age degenerative changes in the cervical spine as detailed. No acute fractur e or vertebral body identified. Faint serpiginous lucencies seen at multiple facet joint levels belie ria to be part of degenerative process rather than fracture. Left-sided mastoiditis.
--- NOTE | 2020-04-26 15:18 | RAD REPORT ---
EXAM DESCRIPTION: RAD - Shoulder Left 2 View - 04/26/2020 2:50 pm CLINICAL HISTORY: PAIN COMPARISON: Chest Single View dated 12/11/2019 TECHNIQUE: Internal and external rotation views of the left shoulder were obtained. FINDINGS: No dislocation or acute fracture changes identified. Deformities of the proximal left william chase may be from remote dislocation episodes. AC joint separation is not seen. No significant AC degen erative change. No acute or suspicious findings. IMPRESSION: No acute fracture or dislocation. Glenohumeral degenerative changes are present with probable old dislocation deformities of the proxim al humerus.
--- NOTE | 2020-04-26 15:19 | RAD REPORT ---
EXAM DESCRIPTION: RAD - Elbow Right 3 View - 04/26/2020 2:51 pm CLINICAL HISTORY: PAIN COMPARISON: No comparisons FINDINGS: No fracture is identified and no elevated posterior fat pad. There is no dislocation or pe riosteal reaction noted. No foreign body or other soft tissue abnormality. Degenerative change at the elbow joint is mild. IMPRESSION: No fracture or acute right elbow finding.
--- NOTE | 2020-04-26 15:23 | RAD REPORT ---
EXAM DESCRIPTION: RAD - Foot Right 3 View - 04/26/2020 2:51 pm CLINICAL HISTORY: PAIN, trip and fall COMPARISON: Foot Right 3 View dated 09/30/2019 FINDINGS: Bones are osteopenic. This is advanced for age. No gross acute fracture deformity seen. Degenerative erosive changes are evident involving the metata rsal heads. Second MTP joint space narrowing is present. Arterial tree calcifications are present. Prominent soft tissue swelling is present over the dorsum o f the foot. In the trauma setting this is probably a soft tissue hematoma. No foreign body seen. IMPRESSION: Advanced for age osteopenic and degenerative change as detailed. The bone changes are no t clearly different from September 2019. Prominent dorsal foot soft tissue swelling probably hematoma.
--- NOTE | 2020-04-26 15:47 | ER ---
Nurse's Notes [facility] Name: Danielle Yan Age: 64 yrs Sex: Female : 1955 Arrival Date: 04/26/2020 Time: 13:25 Bed 20 Private MD: Diagnosis: Mastoiditis and related conditions-left;Localized swelling, mass and lump, neck;Pain in right foot;Pain in right elbow;Pain in left shoulder;Fall on same level from slipping, tripping and stumbling Presentation: 04/26 13:30 Chief complaint: Patient states: Tripped and fell this morning, C/O pain on L shoulder, ca1 R elbow, R foot, R hand, neck. Denies LOC. Denies hitting head. Pt on dialysis M/W/F. Fell before dialysis session today, was able to go to dialysis today. Reported SBP post dialysis is at 80, and BP has always been low. States, "they finished dialysis a few minutes early cause of my pains". Coronavirus screen: Client denies travel out of the [place] in the last 14 days. At this time, the client does not indicate any symptoms associated with coronavirus-19. Ebola Screen: Patient negative for fever greater than or equal to 101.5 degrees Fahrenheit, and additional compatible Ebola Virus Disease symptoms Patient denies exposure to infectious person. Patient denies travel to an Ebola-affected area in the 21 days before illness onset. No symptoms or risks identified at this time. Initial Sepsis Screen: Does the patient meet any 2 criteria? No. Patient's initial sepsis screen is negative. Does the patient have a suspected source of infection? No. Patient's initial sepsis screen is negative. Risk Assessment: Do you want to hurt yourself or someone else? Patient reports no desire to harm self or others. Onset of symptoms was April 26, 2020. 13:30 Method Of Arrival: Wheelchair ca1 13:30 Method Of Arrival: Wheelchair ca1 13:30 Acuity: CLINTON 2 ca1 13:46 Acuity: CLINTON 3 ca1 Triage Assessment: 13:45 General: Appears distressed, uncomfortable, obese, Behavior is cooperative, appropriate bp for age, anxious. Pain: Complains of pain in back and right foot. EENT: No deficits noted. Neuro: No deficits noted. Cardiovascular: No deficits noted. Respiratory: No deficits noted. GI: No signs and/or symptoms were reported involving the gastrointestinal system. : No signs and/or symptoms were reported regarding the genitourinary system. Derm: No deficits noted. Musculoskeletal: No deficits noted. Historical: - Allergies: 13:33 No Known Allergies; ca1 - PMHx: 13:33 Diabetes - NIDDM; Dialysis; factor 5 leiden; Gout; Hypertension; Hypothyroidism; ca1 PERIPHERAL NEUROPATHY; Renal Disease; - PSHx: 13:33 Cholecystectomy; colostomy and reversal; right subclavian dialysis port; left upper arm ca1 fistula; - Immunization history:: Adult Immunizations up to date, Last tetanus immunization: unknown. - Social history:: Smoking status: Patient denies any tobacco usage or history of. Screenin:45 Abuse screen: Denies threats or abuse. Denies injuries from another. Nutritional bp screening: No deficits noted. Tuberculosis screening: No symptoms or risk factors identified. Fall Risk None identified. Assessment: 13:45 General: SEE TRIAGE NOTE. bp 15:32 Reassessment: PT RETURNED FROM RADIOLOGY. PROVIDER AT B/S FOR RE-EVAL. bp 16:11 Reassessment: PT D/C HOME VIA W/C WITH FAMILY, DX WITH SAME LEVEL FALL. bp Vital Signs: 13:30 BP 75 / 46; Pulse 96; Resp 18 S; Temp 97.9(O); Pulse Ox 98% on R/A; Weight 87.54 kg ca1 (R); Height 5 ft. 2 in. (157.48 cm) (R); 13:45 BP 92 / 50; Pulse 96; Resp 17 S; Pulse Ox 99% on R/A; ca1 14:28 BP 92 / 50; Pulse 92; Resp 87; Pulse Ox 100% ; bp 13:30 Body Mass Index 35.30 (87.54 kg, 157.48 cm) ca1 ED Course: 13:25 Patient arrived in ED. ag5 13:31 Triage completed. ca1 13:40 Jayme Caldwell NP is PHCP. pm1 13:40 Dio Wiley MD is Attending Physician. pm1 13:42 Patient has correct armband on for positive identification. Bed in low position. Call ca1 light in reach. Side rails up X2. Pulse ox on. NIBP on. Warm blanket given. 13:51 Benjamin Dominguez, RN is Primary Nurse. bp 15:34 CT C Spine Sent. bp 15:34 Shoulder Left (2 View) XRAY Sent. bp 15:34 Foot Right 3 View XRAY Sent. bp 15:34 Elbow Right 3 View XRAY Sent. bp 16:11 No provider procedures requiring assistance completed. Patient did not have IV access bp during this emergency room visit. Administered Medications: 14:26 Drug: Potter 5 mg-325 mg 1 tabs Route: PO; bp 15:34 Follow up: Response: Pain is decreased bp 15:55 Drug: Rocephin (cefTRIAXone) 1 grams Route: IM; Site: right gluteus; bp 16:12 Follow up: Response: No adverse reaction bp Outcome: 15:46 Discharge ordered by MD. pm1 16:11 Discharged to home via wheelchair, with family. bp 16:11 Condition: stable 16:11 Discharge instructions given to patient, Instructed on discharge instructions, follow up and referral plans. medication usage, Demonstrated understanding of instructions, follow-up care, medications, Prescriptions given X 2. 16:13 Patient left the ED. bp Signatures: Jayme Caldwell, [employer]NER pm1 Benjamin Dominguez, RN RN bp Magda Sebastian, HENNY RN ca1 Elena, Trina ag5 Corrections: (The following items were deleted from the chart) 13:35 13:30 Chief complaint: Patient states: Tripped and fell this morning, C/O pain on L ca1 shoulder, R elbow, R foot, R hand. ca1 13:35 13:30 Acuity: CLINTON 4 ca1 ca1 13:35 13:30 Pulse 96bpm; Resp 18bpm; Spontaneous; Pulse Ox 98% RA; Temp 97.9F Oral; 87.54 kg ca1 Reported; Height 5 ft. 2 in. Reported; BMI: 35.3; ca1 13:37 13:30 Chief complaint: Patient states: Tripped and fell this morning, C/O pain on L ca1 shoulder, R elbow, R foot, R hand, neck. Denies LOC. Denies hitting head. Pt on dialysis M/W/F. Fell before dialysis session today, was able to go to dialysis. Reported SBP post dialysis is at 80. States, "they finished dialysis a few minutes early cause of my pains" ca1
--- NOTE | 2020-04-26 15:47 | EDPHYS ---
Physician Documentation [facility] Name: Danielle Yan Age: 64 yrs Sex: Female : 1955 Arrival Date: 04/26/2020 Time: 13:25 Bed 20 Private MD: ED Physician Dio Wiley HPI: 04/26 14:15 This 64 yrs old Female presents to ER via Wheelchair with complaints of Fall pm1 Injury, Pain All Over. 14:15 Details of fall: The patient fell from an upright position, while walking. Onset: The pm1 symptoms/episode began/occurred this morning. Associated injuries: The patient sustained neck injury, anterior aspect of left shoulder, Pain, right foot, Pain, right elbow, Pain. Severity of symptoms: in the emergency department the symptoms are unchanged. The patient has not experienced similar symptoms in the past. Patient completed dialysis treatment after fall injury this AM. Patient tripped on her rug at home this AM. Historical: - Allergies: 13:33 No Known Allergies; ca1 - PMHx: 13:33 Diabetes - NIDDM; Dialysis; factor 5 leiden; Gout; Hypertension; Hypothyroidism; ca1 PERIPHERAL NEUROPATHY; Renal Disease; - PSHx: 13:33 Cholecystectomy; colostomy and reversal; right subclavian dialysis port; left upper arm ca1 fistula; - Immunization history:: Adult Immunizations up to date, Last tetanus immunization: unknown. - Social history:: Smoking status: Patient denies any tobacco usage or history of. ROS: 14:15 Constitutional: Negative for fever, chills, and weight loss. pm1 14:15 Cardiovascular: Negative for chest pain, palpitations, and edema, Respiratory: Negative for shortness of breath, cough, wheezing, and pleuritic chest pain, Abdomen/GI: Negative for abdominal pain, nausea, vomiting, diarrhea, and constipation, Back: Negative for injury and pain. 14:15 Neuro: Negative for headache, weakness, numbness, tingling, and seizure. 14:15 Neck: Positive for pain with movement, tenderness, of the neck, Negative for 14:15 MS/extremity: Positive for pain, of the left shoulder, right elbow, and right foot, Negative for decreased range of motion, deformity, paresthesias. 14:15 Skin: Positive for abrasion(s), of the right hand. Exam: 14:15 Constitutional: This is a well developed, well nourished patient who is awake, alert, pm1 and in no acute distress. Head/Face: Normocephalic, atraumatic. 14:15 Chest/axilla: Normal chest wall appearance and motion. Nontender with no deformity. No lesions are appreciated. 14:15 Back: No spinal tenderness. No costovertebral tenderness. Full range of motion. 14:15 ENT: External ear(s): are unremarkable, Ear canal(s): are normal, TM's: are normal, Nose: is normal, Mouth: is normal. 14:15 Neck: External neck: tenderness, that is mild, of the left trapezius and right trapezius, C-spine: vertebral tenderness, is not appreciated. 14:15 Cardiovascular: Exam negative for acute changes, Rate: normal, Rhythm: regular, Pulses: no pulse deficits are appreciated. 14:15 Respiratory: Exam negative for acute changes, respiratory distress, shortness of breath. 14:15 Abdomen/GI: Exam negative for acute changes, Inspection: abdomen appears normal, Palpation: abdomen is soft and non-tender, in all quadrants. 14:15 Skin: Appearance: normal except for affected area, injury, abrasion(s), very small abrasion noted, of the dorsum of right hand. 14:15 Neuro: Orientation: is normal, Mentation: is normal, Motor: is normal. Vital Signs: 13:30 BP 75 / 46; Pulse 96; Resp 18 S; Temp 97.9(O); Pulse Ox 98% on R/A; Weight 87.54 kg ca1 (R); Height 5 ft. 2 in. (157.48 cm) (R); 13:45 BP 92 / 50; Pulse 96; Resp 17 S; Pulse Ox 99% on R/A; ca1 14:28 BP 92 / 50; Pulse 92; Resp 87; Pulse Ox 100% ; bp 13:30 Body Mass Index 35.30 (87.54 kg, 157.48 cm) ca1 MDM: 14:07 Patient medically screened. pm1 15:40 Special discussion: I discussed with the patient the need to follow-up with the pm1 PCP/specialist for the noted incidental finding on X-ray/CT scanning. patient without any tenderness to left mastoid area. 15:44 Data reviewed: vital signs. Data interpreted: Pulse oximetry: on room air is 100 %. pm1 Interpretation: normal. Counseling: I had a detailed discussion with the patient and/or guardian regarding: the historical points, exam findings, and any diagnostic results supporting the discharge/admit diagnosis, radiology results, the need for outpatient follow up, to return to the emergency department if symptoms worsen or persist or if there are any questions or concerns that arise at home. 04/26 14:14 Order name: CT C Spine pm1 04/26 14:14 Order name: Shoulder Left (2 View) XRAY pm1 04/26 14:14 Order name: Foot Right 3 View XRAY pm1 04/26 14:14 Order name: Elbow Right 3 View XRAY pm1 04/26 15:20 Order name: CT; Complete Time: 15:22 EDMS 04/26 15:20 Order name: RAD; Complete Time: 15:22 EDMS 04/26 15:20 Order name: RAD; Complete Time: 15:22 EDMS 04/26 15:24 Order name: RAD; Complete Time: 15:24 EDMS Administered Medications: 14:26 Drug: Bryant 5 mg-325 mg 1 tabs Route: PO; bp 15:34 Follow up: Response: Pain is decreased bp 15:55 Drug: Rocephin (cefTRIAXone) 1 grams Route: IM; Site: right gluteus; bp 16:12 Follow up: Response: No adverse reaction bp Disposition: 16:27 Co-signature as Attending Physician, Dio Wiley MD I agree with the assessment and kdr plan of care. Disposition: 04/26/20 15:46 Discharged to Home. Impression: Fall on same level from slipping, tripping and stumbling, Mastoiditis and related conditions - left, Localized swelling, mass and lump, neck, Pain in right foot, Pain in right elbow, Pain in left shoulder. - Condition is Stable. - Discharge Instructions: Fall Prevention in the Home, Shoulder Pain, Elbow Contusion, Mastoiditis, Pediatric, Foot Pain. - Prescriptions for Augmentin 500- 125 mg Oral Tablet - take 1 tablet by ORAL route once daily for 10 days On dialysis days, take after dialysis treatment; 10 tablet. Tylenol- Codeine #3 300-30 mg Oral Tablet - take 2 tablet by ORAL route every 6 hours As needed; 20 tablet. - Medication Reconciliation Form, Thank You Letter, Antibiotic Education, Prescription Opioid Use form. - Follow up: Emergency Department; When: As needed; Reason: Worsening of condition. Follow up: Private Physician; When: 2 - 3 days; Reason: Recheck today's complaints, Continuance of care, Re-evaluation by your physician. - Problem is new. - Symptoms have improved. Signatures: Dispatcher [employer] EDMS Dio Wiley MD MD [facility] Jayme Caldwell NP [employer]ING MACHINE OPERATOR pm1 Benjamin Dominguez RN RN Magda Sebastian RN RN [facility] Corrections: (The following items were deleted from the chart) 16:13 15:46 04/26/2020 15:46 Discharged to Home. Impression: Fall on same level from bp slipping, tripping and stumblingMastoiditis and related conditions - left; Localized swelling, mass and lump, neck; Pain in right foot; Pain in right elbow; Pain in left shoulder. Condition is Stable. Forms are Medication Reconciliation Form, Thank You Letter, Antibiotic Education, Prescription Opioid Use. Follow up: Emergency Department; When: As needed; Reason: Worsening of condition. Follow up: Private Physician; When: 2 - 3 days; Reason: Recheck today's complaints, Continuance of care, Re-evaluation by your physician. Problem is new. Symptoms have improved. pm1
[2020-04-26] MEDS ORDERED: CEFTRIAXONE 1000 MG/VIAL ONE (15:59)
[2020-04-26] MEDS ORDERED: LIDOCAINE 2% MPF 5 ML VIAL ONE (15:59)
[2020-04-26 16:17] VITALS: TEMP 97.9
[2020-04-26 16:18] VITALS: BP 92/50
[2020-04-26 16:19] VITALS: O2SAT 100
== END 2020-04-26 16:13 | disposition home or self-care (01) ==
LOC: ER 13:23
DX: H70.92 Unspecified mastoiditis, left ear (principal); M79.671 Pain in right foot; M25.521 Pain in right elbow; M25.512 Pain in left shoulder; W18.09XA Striking against other object with subsequent fall, initial encounter; Y93.01 Activity, walking, marching and hiking; Y92.9 Unspecified place or not applicable; I12.0 Hypertensive chronic kidney disease with stage 5 chronic kidney disease or end stage renal disease; E11.22 Type 2 diabetes mellitus with diabetic chronic kidney disease; N18.6 End stage renal disease; Z99.2 Dependence on renal dialysis
CPT/HCPCS: 72125; 96372; 99284

== ENCOUNTER 2022-03-08 17:08 | Emergency (ER) | payer OTHER ==
--- OUTSIDE RECORDS SUMMARY | 2022-03-08 17:18 | XMS REPORT | Continuity of Care Document ---
:1955 Author Organization [facility] t Address [address] [place] [address] Care Team Providers Name Role Phone Tamar GREENE Primary Care Physician FARHAT Attending Clinician Unavailable TAMAR Attending Clinician Unavailable LOLITA Attending Clinician Unavailable NI HAMMOND Attending Clinician Unavailable [id number] Attending Clinician Unavailable INGRID Attending Clinician Unavailable ADRY Attending Clinician Unavailable Justyna Wiggins Attending Clinician Unavailable Cindi COFFEY Attending Clinician Unavailable ROWAN Attending Clinician Unavailable CLARA Attending Clinician Unavailable GAURAV Attending Clinician Unavailable SETH Attending Clinician Unavailable LUNA Attending Clinician Unavailable REED Attending Clinician Unavailable JOHANA Attending Clinician Unavailable DERREK Attending Clinician Unavailable Justyna Zarate Attending Clinician Unavailable Aide Attending Clinician Unavailable Corinne GREENE Attending Clinician Derrell Carr DO Attending Clinician Justyna Zhao MD. Attending Clinician Luis Fernando GREENE Attending Clinician VASCULAR Attending Clinician Unavailable LUIS FERNANDO Attending Clinician Unavailable CARLOTTA Attending Clinician Unavailable ARETHA Attending Clinician Unavailable ADRY Attending Clinician Unavailable TAMAR Attending Clinician Unavailable INGRID Attending Clinician Unavailable LOLITA Attending Clinician Unavailable ERLINDA Attending Clinician Unavailable Phong ELLIOTT Attending Clinician Unavailable SMOOTH Attending Clinician Unavailable MAXIMO Attending Clinician Unavailable RICARDO Attending Clinician Unavailable Lele SILVA Attending Clinician Unavailable FARHAT Attending Clinician Unavailable STEVEN BEATTY Attending Clinician Unavailable ADELSO Attending Clinician Unavailable JOSE JUAN Attending Clinician Unavailable VASCULAR Attending Clinician Unavailable RUPESH Attending Clinician Unavailable JANELL Attending Clinician Unavailable GINNY Attending Clinician Unavailable VASCULAR Attending Clinician Unavailable SETH Attending Clinician Unavailable NAVIN Attending Clinician Unavailable Attending Clinician Unavailable MARC WALL Attending Clinician Unavailable Amaris Attending Clinician Unavailable CHRIS Attending Clinician Unavailable JOANN Attending Clinician Unavailable LETY Attending Clinician Unavailable CATHRYN Attending Clinician Unavailable MATTHEW Attending Clinician Unavailable NI HAMMOND Admitting Clinician Unavailable [id number] Admitting Clinician Unavailable Tamar Admitting Clinician Unavailable Justyna Wiggins Admitting Clinician Unavailable JLEENA Admitting Clinician Unavailable Justyna Zarate Admitting Clinician Unavailable ERA Admitting Clinician Unavailable Cindi COFFEY Admitting Clinician Unavailable SHAR DOUGHERTY Admitting Clinician Unavailable STEVEN BEATTY Admitting Clinician Unavailable Payers Payer Name Policy Type Policy Number Effective Date Expiration Date S wendy MEDICARE PART A [id number] 2011 AND B 00:00:00 [facility] [id number] [facility] [id number] Problems Condition Condition Condition Status Onset Resolution Last Treating Co mments Source Name Details Category Date Date Treatment Clinician Date Nonrheumat Nonrheumat Disease Active 2020-09 M ethodi ic mitral ic mitral 0-20 st valve valve 00:00: Hospita stenosis stenosis 00 l Mitral Mitral Disease Active 2020-09 [facility] annular annular 0-20 st calcificat calcificat 00:00: Ho spita ion ion 00 l Anemia Anemia Disease Active 2020-09 Methodi 0-20 st 00:00: Hospita 00 l Hyperlipid Hyperlipid Disease Active 2020-09 M ethodi emia emia 0-20 st 00:00: Hospita 00 l Renal Renal Disease Active 2020-09 [facility] dialysis dialysis 0-20 st device, device, 00:00: Hospita implant, implant, 00 l or graft or graft complicati complicati on on Hyperparat Hyperparat Disease Active 2020-09 M ethodi hyroidism hyroidism 00:00: Hospita 00 l Postoperat Postoperat Disease Active M ethodi shine shine 02-22 hypothyroi hypothyroi 00:00: Ho spita dism dism 00 l Nonrheumat Nonrheumat Disease Active M ethodi ic aortic ic aortic 02-22 valve valve 00:00: Hospita stenosis stenosis 00 l LBBB (left LBBB (left Disease Active M ethodi bundle bundle 02-22 branch branch 00:00: Hospita block) block) 00 l Hypotensio Hypotensio Disease Active M ethodi n n 02-21 st 00:00: Hospita 00 l ESRD (end ESRD (end Disease Active Met hodi stage stage 02-21 renal renal 00:00: Hospita disease) disease) 00 l Abscess of Abscess of Disease Active U T vulva vulva 01-21 Health 00:00: 00 Anxiety Anxiety Disease Active [facility] disorder disorder 01-29 st 00:00: Hospita 00 l Gout Gout Disease Active [facility] 01-29 st 00:00: Hospita 00 l Renal Renal Disease Active Methodi osteodystr osteodystr 01-29 ophy ophy 00:00: Hospita 00 l Secondary Secondary Disease Active Met hodi hyperparat hyperparat 01-29 hyroidism hyroidism 00:00: Hosp teresa 00 l Type 2 Type 2 Disease Active [facility] diabetes diabetes 01-29 mellitus mellitus 00:00: Hospit a with with 00 l diabetic diabetic chronic chronic kidney kidney disease disease Factor V Factor V Disease Active Metho di Leiden Leiden 03-22 mutation mutation 00:00: Hospit a 00 l History of History of Disease Active M ethodi right right 03-22 hemicolect hemicolect 00:00: [facility] [place]ita [place] 00 l Abdominal Abdominal Problem Active UT abscess abscess Physici ans Effective Effective Problem Active UT bowel bowel Physici preparatio preparatio an s n for n for surgery surgery History of History of Problem Resolve UT chronic chronic d Physici kidney kidney ans disease disease History of History of Problem Resolve UT Diverticul Diverticul d Ph ysici itis itis ans Factor V Factor V Problem Active UT Leiden Leiden Physici mutation mutation ans History of History of Problem Resolve UT Celeste Celeste d Phys ici thyroiditi thyroiditi an s s s History of History of Problem Resolve UT hypertensi hypertensi d Ph ysici on on ans History of History of Problem Resolve UT urinary urinary d Physici tract tract ans infection infection Acute deep Acute deep Problem Active U T vein vein Physici thrombosis thrombosis an s of lower of lower extremity extremity Joint pain Joint pain Problem Active U T of lower of lower Physic i extremity extremity ans Colovesica Coloves[place] Problem Active U T l fistula l fistula Phys ici ans Edema Edema Problem Active UT Physici ans Lumbar Lumbar Problem Active UT radiculopa radiculopa Ph ysici thy thy ans Staph Staph Problem Active UT infection infection Phys ici ans 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 Phys ici ans Hyperparat Hyperparat Problem Active U T hyroidism hyroidism Phys ici ans Pain in Pain in Problem Active UT joint joint Physici involving involving ans upper arm upper arm Vitamin D Vitamin D Problem Active UT insufficie insufficie Ph ysici ncy ncy ans Bilateral Bilateral Problem Active UT hand pain hand pain Phys ici ans Gout Gout Problem Active UT Physici ans Insomnia Insomnia Problem Active UT Physici ans Hypercoagu Hypercoagu Problem Active U T lable lable Physici state state ans Renal Renal Problem Active UT dialysis dialysis Physic i device, device, ans implant, implant, or graft or graft complicati complicati on on Thrombophl Thrombophl Problem Active U T ebitis ebitis Physici ans Cellulitis Cellulitis Problem Active U T of left of left Physici upper upper ans extremity extremity Complicati Complicati Problem Active U T on of on of Physici device or device or ans graft graft 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 recurrent recurrent ans major major depressive depressive disorder disorder Type 2 Type 2 Problem Active UT diabetes diabetes Physic i mellitus mellitus ans Hypotensio Hypotensio Problem Active U T n n Physici ans Need for Need for Problem Active UT shingles shingles Physic i vaccine vaccine ans Abdominal Abdominal Problem Active UT wall wall Physici abscess abscess ans Endocardit Endocardit Problem Active U T is is Physici ans Postoperat Postoperat Problem Active U T shine shine Physici examinatio examinatio an s n n Aftercare Aftercare Problem Active UT following following Phys ici surgery surgery ans Open Open Problem Active UT abdominal abdominal Phys ici wall wound wall wound an s End stage End stage Problem Active UT renal renal Physici disease disease ans History of History of Problem Resolve UT Status Status d Physici post post ans angioplast angioplast y y Dietary Dietary Problem Active UT iron iron Physici deficiency deficiency an s anemia anemia Diabetes Diabetes Problem Active UT mellitus mellitus Physic i type 2, type 2, ans uncontroll uncontroll ed ed History of History of Problem Resolve UT Preoperati Preoperati d Ph ysici ve ve ans clearance clearance Anemia Anemia Problem Active UT Physici ans Hyperlipid Hyperlipid Problem Active U T emia emia Physici ans Colonic Colonic Problem Active UT fistula fistula Physici ans Neuropathy Neuropathy Problem Active U T involving involving Phys ici both lower both lower an s extremitie extremitie s s Anxiety Anxiety Problem Active UT Physici ans Depressive Depressive Problem Active U T disorder disorder Physic i ans Right Right Problem Active UT ankle ankle Physici injury injury ans Injury of Injury of Problem Active UT toe on toe on Physici right right ans foot, foot, initial initial encounter encounter Injury of Injury of Problem Active UT left left Physici ankle, ankle, ans initial initial encounter encounter Hypothyroi Hypothyroi Problem Active U T dism, dism, Physici postsurgic postsurgic an s al al Hematoma Hematoma Problem Active UT of hip of hip Physici ans Esophageal Esophageal Problem Active U T mass mass Physici ans Mediastina Mediastina Problem Active U T l mass l mass Physici ans Hypocalcem Hypocalcem Problem Active U T ia ia Physici ans Hungry Hungry Problem Active UT bone bone Physici syndrome syndrome ans Hyperphosp Hyperphosp Problem Active U T hatemia hatemia Physici ans 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 Labial Labial Problem Active UT cyst cyst Physici ans Enlargemen Enlargemen Problem Active U T t of labia t of labia Ph ysici ans Bartholin Bartholin Problem Active UT cyst cyst Physici ans Visit for Visit for Problem Active UT screening screening Phys ici mammogram mammogram ans Vulvar Vulvar Problem Active UT abscess abscess Physici ans Pressure Pressure Problem Active UT injury of injury of Phys ici sacral sacral ans region, region, stage 1 stage 1 Aortic Aortic Problem Active UT stenosis stenosis Physic i ans Allergies, Adverse Reactions, Alerts Allergy Allergy Status Severity Reaction(s) Onset Inactive Treating Comm ents Source Name Type Date Date Clinician Cephalos DA Active MO 2020-09 [facility] 0[facility]20 [place] [facility]: [facility] 00 [facility] Cephalos DA Active MO ITCHING 2020-09 [facility] porins 0-20 [place] 00:[facility]: [facility] 00 [facility] Cefazoli Propensi Active Itching Metho di n ty to 02-21 st adverse 00:00: Hospita reaction 00 l s to drug No Known DA Active U [facility]ie 04-26 [facility] 00:[facility]: [facility] 00 [facility] No Known DA Active U [facility] Allergie 04-26 [facility] 00:00: Health 00 are [facility] Family History Family Member Diagnosis Comments Start Date Stop Date Source Child Family history of [facility] thyroid disease Sibling Family history of [facility] chronic kidney disease Mother Family history of [facility] chronic kidney disease Mother Family history of [facility] type 2 diabetes mellitus Unknown Family Family history of Other [facility] Member suicide Unknown Family Family history of Other [facility] Member Substance abuse Sister Family history of [facility] Factor 5 Leiden mutation, heterozygous Natural mother Diabetes [facility] Natural [facility] Social History Social Habit Start Date Stop Date Quantity Comments Source History [facility] Std Drinks Hospit al History [facility] Exposure to Not sure [facility] SARS-CoV-2 (event) Hospit al Tobacco use and 2021-07-09 2021-07-09 Never used [facility] exposure 00:00:[facility] 00:00:00 Hospital Alcohol intake 2021-07-09 2021-07-09 Lif[facility] 00:[facility]00 non-drinker Hospital (finding) History SDOH 2021-02-21 2021-02-21 1 [facility] Frequency 00:00:00 00:00:00 Hospita l Sex Ass[birth year] At [birth year] [facility] 00[facility] Smoking Status Start Date Stop Date Source Never smoker [facility] Medications Ordered Filled Start Stop Current Ordering Indication Dosage Frequency Signature Comments Components Source Medication Medication Date Date Medication? Clinician (SIG) Name Name clonAZEPAM 2020-09 Yes 1mg Q.5D Take 1 mg Me [facility] (KlonoPIN) 0-[address] 1 MG tablet 16:07: (two) Hospi ta 35 times a l day as needed for anxiety. escitalopra 2020-09 Yes 20mg QD Take 20 mg [facility] m (LEXAPRO) 0-[address] 20 MG 16:07: daily. Hospita tablet 35 l gabapentin 2020-09 Yes 200mg Q.5D Take 200 [facility] (NEURONTIN) 0-[address] 100 mg 16:07: mouth 2 Hospita capsule 35 (two) l times a day. sevelamer 2020-09 Yes 1600mg [id number] Take 1,600 [facility] (RENAGEL) 0-[id number] 800 MG 16:07: 3D mouth 3 Hospita tablet 35 (three) l times a day with meals. linaGLIPtin 2020-09 Yes 5mg QD Take 5 mg M ethodi (TRADJENTA) 0-[address] 5 mg tablet 16:07: daily with Hospita 35 breakfast. l Eliquis 5 2020-09 Yes [facility] mg tablet 0-18 st 00:00: Hospita 00 l enoxaparin Yes 100mg Q24H Inject 1 [facility] (Lovenox) 7-12 mL ([address] 100 mg/mL 00:00: total) Hospit a syringe 00 under the l skin daily. levothyroxi 2021- No [id number] 200ug QD Take 1 [facility] ne 7-12 07-[address] (SYNTHROID) 00:00: 04:59 (200 mcg H ospita 200 mcg 00 :00 total) by l tablet mouth daily. gabapentin Yes [id number] TAKE 1 U T (Neurontin) 6-14 CAPSULE IN He alth 100 MG 00:00: THE capsule 00 MORNING AND 2 CAPSULES IN THE EVENING. gabapentin Yes [id number] TAKE 1 U T (Neurontin) 6-14 CAPSULE IN He alth 100 MG 00:00: THE capsule 00 MORNING AND 2 CAPSULES IN THE EVENING. gabapentin Yes [id number] TAKE 1 U T (Neurontin) 6-14 CAPSULE IN He alth 100 MG 00:00: THE capsule 00 MORNING AND 2 CAPSULES IN THE EVENING. gabapentin Yes [id number] TAKE 1 U T (Neurontin) 6-14 CAPSULE IN He alth 100 MG 00:00: THE capsule 00 MORNING AND 2 CAPSULES IN THE EVENING. levothyroxi 2020- No 200ug QD Take 1 Me thodi ne 03-01-[address] (SYNTHROID) 00:00: 00:00 (200 mcg H ospita 200 mcg 00 :00 total) by l tablet mouth daily for 30 days. apixaban 2020- No 5mg Q.5D Take 5 mg Met hodi (ELIQUIS) 5 02-2811 by mouth 2 s t mg tablet 23:50: 00:00 (two) Hospit a 42 :00 times a l day. calcitRIOL 2020- No .25ug QD Take 0.25 [facility] (ROCALTROL) 02-28 06-[address] 1 mcg/mL 23:50: 00:00 mouth Hospita solution 42 :00 daily. l Only dialysis day From clinic given levothyroxi 2020- No 150ug QD Take 150 [facility] ne 02-28 06-[address] (SYNTHROID) 23:50: 00:00 mouth Hosp teresa 150 mcg 42 :00 daily. l tablet calcitrioL 2020- No 1.25ug Take 1.25 [facility] (ROCALTROL) 02-28 06-[address] 0.25 MCG 23:50: 00:00 mouth take Ho spita capsule 42 :00 as l directed (On dialysis days in clinic). allopurinoL 2020- No 100mg QD Take 100 [facility] (ZYLOPRIM) 02-28 06-[address] 100 MG 18:01: 00:00 mouth Hospita tablet 31 :00 daily. l allopurinoL 2020- No 100mg QD Take 1 Me th[facility] (ZYLOPRIM) 02-[address] 100 MG 00:00: 04:59 (100 mg Hospita tablet 00 :00 total) by l mouth daily for 30 days. enoxaparin 2020- No 91mg Q24H Inject Meth kaylee (LOVENOX) 02-[address] 100 mg/mL 00:00: 00:00 (91 mg Hospi ta syringe 00 :00 total) l under the skin daily .Therapeut ic Anticoagul ation. midodrine 2020- No 10mg Q.[id number] Take 1 [facility] (PROAMATINE 02-28 [id number] tablet (10 st ) 10 MG 00:00: 04:59 3D mg total) Hosp teresa tablet 00 :00 by mouth 3 l (three) times a day for 30 days. levothyroxi 2020- No 125ug QD Take 125 [facility] ne 02-22 06-[address] (SYNTHROID) 18:39: 00:00 mouth Hosp teresa 125 mcg 49 :00 daily. l tablet acetaminoph 2020- No 650mg Q4H Take 650 [facility] en 02-22 06-[address] (TYLENOL) 18:37: 00:00 mouth Hospit a 325 MG 06 :00 every 4 l tablet (four) hours as needed for moderate pain or fever (pain level 4-6). clonazePAM Yes TAKE 1 UT (KlonoPIN) 6-03 TABLET Health 1 MG 00:00: DISSOLVE disintegrat 00 IN MOUTH ing tablet TWICE A DAY clonazePAM 2020-0 Yes TAKE 1 UT (KlonoPIN) 6-03 TABLET Health 1 MG 00:00: DISSOLVE disintegrat 00 IN MOUTH ing tablet TWICE A DAY clonazePAM 2020-0 Yes TAKE 1 UT (KlonoPIN) 6-03 TABLET Health 1 MG 00:00: DISSOLVE disintegrat 00 IN MOUTH ing tablet TWICE A DAY clonazePAM 2020-0 Yes TAKE 1 UT (KlonoPIN) 6-03 TABLET Health 1 MG 00:00: DISSOLVE disintegrat 00 IN MOUTH ing tablet TWICE A DAY allopurinol Yes UT (Zyloprim) 04 Health 100 MG 20:39: tablet 57 allopurinol 2020-0 Yes UT (Zyloprim) 04 Health 100 MG 20:39: tablet 57 allopurinol Yes UT (Zyloprim) 5-04 Health 100 MG 20:39: tablet 57 allopurinol Yes UT (Zyloprim) 5-04 Health 100 MG 20:39: tablet 57 midodrine Yes TAKE 1 UT (Proamatine 5-04 TABLET 2 Heal th ) 5 MG 20:39: TIMES tablet 56 DAILY. midodrine Yes TAKE 1 UT (Proamatine 5-04 TABLET 2 Heal th ) 5 MG 20:39: TIMES tablet 56 DAILY. midodrine Yes TAKE 1 UT (Proamatine 5-04 TABLET 2 Heal th ) 5 MG 20:39: TIMES tablet 56 DAILY. midodrine Yes TAKE 1 UT (Proamatine 5-04 TABLET 2 Heal th ) 5 MG 20:39: TIMES tablet 56 DAILY. midodrine Yes Take by Nickyo di (PROAMATINE 5-[address] ) 5 MG 00:00: Hospita tablet 00 l Gabapentin Gabapentin 2019-09 Yes RIZWAN take 2 cap UT 100 MG Oral 100 MG Oral 1-23 [place] in morning Physici Capsule Capsule 00:00: M.D. and 2 cap an s 00 in kesha po clonazePAM clonazePAM 2019-[address] 1 UT 0.5 MG Oral 0.5 MG Oral 1-23 [place] TABLET ON Physici Tablet Tablet 00:00: M.D. TONGUE AND ans Disintegrat Disintegrat 00 ALLOW TO ing ing DISSOLVE TWICE DAILY NEEDED. clonazePAM 2019-[address] 1 UT (KlonoPIN) 1-23 TABLET ON Heal th 0.5 MG 00:00: TONGUE AND disintegrat 00 ALLOW TO ing tablet DISSOLVE TWICE DAILY NEEDED. clonazePAM 2019-[address] 1 UT (KlonoPIN) 1-23 TABLET ON Heal th 0.5 MG 00:00: TONGUE AND disintegrat 00 ALLOW TO ing tablet DISSOLVE TWICE DAILY NEEDED. clonazePAM 2019-[address] 1 UT (KlonoPIN) 1-23 TABLET ON Heal th 0.5 MG 00:00: TONGUE AND disintegrat 00 ALLOW TO ing tablet DISSOLVE TWICE DAILY NEEDED. clonazePAM 2019-[address] 1 UT (KlonoPIN) 1-23 TABLET ON Heal th 0.5 MG 00:00: TONGUE AND disintegrat 00 ALLOW TO ing tablet DISSOLVE TWICE DAILY NEEDED. Renvela 800 Renvela 800 2019- Yes REYES JIMENEZ 1 Q0.3333D TAKE 1 UT MG Oral MG Oral 1-03 M.D. TABLET 3 Physi ci Tablet Tablet 00:00: TIMES ans 00 DAILY Calcitriol Calcitriol 2019-09 Yes REYES JIMENEZ Take 1 tab UT 0.5 MCG 0.5 MCG 1-03 M.D. daily as Physi ci Oral Oral 00:00: directed. ans Capsule Capsule 00 Tums E-X Tums E-X 2019-09 Yes REYES JIMENEZ TAKE 3 UT 750 CHEW 750 CHEW 1-03 M.D. TABS TWICE P hysici 00:00: DAILY WITH ans 00 MEALS sevelamer 2019-09 Yes TAKE 1 UT carbonate 1-03 TABLET 3 Health (Renvela) 00:00: TIMES 800 MG 00 DAILY tablet calcium 2019-09 Yes TAKE 3 UT carbonate 1-03 TABS TWICE Heal th EX (Tums 00:00: DAILY WITH E-X) 750 MG 00 MEALS chewable tablet calcitriol 2019-09 Yes Take 1 tab U T (Rocaltrol) 1-03 daily as Heal th 0.5 MCG 00:00: directed. capsule 00 sevelamer 2019-09 Yes TAKE 1 UT carbonate 1-03 TABLET 3 Health (Renvela) 00:00: TIMES 800 MG 00 DAILY tablet calcium 2019-09 Yes TAKE 3 UT carbonate 1-03 TABS TWICE Heal th EX (Tums 00:00: DAILY WITH E-X) 750 MG 00 MEALS chewable tablet calcitriol 2019-09 Yes Take 1 tab U T (Rocaltrol) 1-03 daily as Heal th 0.5 MCG 00:00: directed. capsule 00 sevelamer 2019-09 Yes TAKE 1 UT carbonate 1-03 TABLET 3 Health (Renvela) 00:00: TIMES 800 MG 00 DAILY tablet calcium 2019-09 Yes TAKE 3 UT carbonate 1-03 TABS TWICE Heal th EX (Tums 00:00: DAILY WITH E-X) 750 MG 00 MEALS chewable tablet calcitriol 2019-09 Yes Take 1 tab U T (Rocaltrol) 1-03 daily as Heal th 0.5 MCG 00:00: directed. capsule 00 sevelamer 2019- Yes TAKE 1 UT carbonate 1-03 TABLET 3 Health (Renvela) 00:00: TIMES 800 MG 00 DAILY tablet calcium 2019-09 Yes TAKE 3 UT carbonate 1-03 TABS TWICE Heal th EX (Tums 00:00: DAILY WITH E-X) 750 MG 00 MEALS chewable tablet calcitriol 2019-09 Yes Take 1 tab U T (Rocaltrol) 1-03 daily as Heal th 0.5 MCG 00:00: directed. capsule 00 clonazePAM clonazePAM Yes RIZWAN TAKE 1 UT 1 MG Oral 1 MG Oral 8-03 [facility] TABLET Physici Tablet Tablet 00:00: M.D. DISSOLVE ans Disintegrat Disintegrat 00 IN MOUTH ing ing TWICE A DAY Tradjenta 5 Tradjenta 5 Yes REYES CILLO TAKE 1 UT MG Oral MG Oral 6-16 M.D. TABLET BY Phys ici Tablet Tablet 00:00: MOUTH ans 00 EVERY DAY linaGLIPtin Yes TAKE 1 UT (Tradjenta) 6-16 TABLET BY Hea lth 5 MG tablet 00:00: MOUTH 00 EVERY DAY linaGLIPtin Yes TAKE 1 UT (Tradjenta) 6-16 TABLET BY Hea lth 5 MG tablet 00:00: MOUTH 00 EVERY DAY linaGLIPtin Yes TAKE 1 UT (Tradjenta) 6-16 TABLET BY Hea lth 5 MG tablet 00:00: MOUTH 00 EVERY DAY linaGLIPtin Yes TAKE 1 UT (Tradjenta) 6-16 TABLET BY Hea lth 5 MG tablet 00:00: MOUTH 00 EVERY DAY Escitalopra Escitalopra Yes RIZWAN 1 QD TAKE 1 UT m Oxalate m Oxalate 8-12 [facility] TABLET Physici 20 MG Oral 20 MG Oral 00:00: M.D. DAILY. ans Tablet Tablet 00 escitalopra Yes TAKE 1 UT m (Lexapro) 8-12 TABLET Health 20 MG 00:00: DAILY. tablet 00 escitalopra Yes TAKE 1 UT m (Lexapro) 8-12 TABLET Health 20 MG 00:00: DAILY. tablet 00 escitalopra Yes TAKE 1 UT m (Lexapro) 8-12 TABLET Health 20 MG 00:00: DAILY. tablet 00 escitalopra Yes TAKE 1 UT m (Lexapro) 8-12 TABLET Health 20 MG 00:00: DAILY. tablet 00 Tramadol Tramadol 2017-09 Yes Garret 1 tablet Common HCl HCl 0-09 Stearns as needed Spirit 00:00: - [facility] 00 [facility] Eliquis 5 Eliquis 5 Yes ALLY Take 1 UT MG Oral MG Oral 9-28 RUPESH tablet by Vini hysici Tablet Tablet 00:00: M.D. mouth ans 00 twice a day PATIENT NEEDS APPOINTMEN T FOR ADDITIONAL REFILLS apixaban Yes Take 1 UT (Eliquis) 5 9-28 tablet by Hea lth MG tablet 00:00: mouth 00 twice a day PATIENT NEEDS APPOINTMEN T FOR ADDITIONAL REFILLS apixaban 2017- Yes Take 1 UT (Eliquis) 5 9-28 tablet by Hea lth MG tablet 00:00: mouth 00 twice a day PATIENT NEEDS APPOINTMEN T FOR ADDITIONAL REFILLS apixaban Yes Take 1 UT (Eliquis) 5 9-28 tablet by Hea lth MG tablet 00:00: mouth 00 twice a day PATIENT NEEDS APPOINTMEN T FOR ADDITIONAL REFILLS apixaban Yes Take 1 UT (Eliquis) 5 9-28 tablet by Hea lth MG tablet 00:00: mouth 00 twice a day PATIENT NEEDS APPOINTMEN T FOR ADDITIONAL REFILLS allopurinoL Yes Take by Met carballo (ZYLOPRIM) 7-[address] 100 MG 00:00: Hospita tablet 00 l Levothyroxi Levothyroxi Yes AMY QD TAKE 1 UT ne Sodium ne Sodium 6-11 TAMAR TABLET BY Josh 150 MCG 150 MCG 00:00: M.D. MOUTH ans Oral Tablet Oral Tablet 00 EVERY DAY. CALL OFFICE, NEEDS VISIT. levothyroxi 2014- Yes TAKE 1 UT ne 6-11 TABLET BY Health (Synthroid, 00:00: MOUTH Levoxyl) 00 EVERY DAY. 150 MCG CALL tablet OFFICE, NEEDS VISIT. levothyroxi 2014-0 Yes TAKE 1 UT ne 6-11 TABLET BY Health (Synthroid, 00:00: MOUTH Levoxyl) 00 EVERY DAY. 150 MCG CALL tablet OFFICE, NEEDS VISIT. levothyroxi 2014- Yes TAKE 1 UT ne 6-11 TABLET BY Health (Synthroid, 00:00: MOUTH Levoxyl) 00 EVERY DAY. 150 MCG CALL tablet OFFICE, NEEDS VISIT. levothyroxi Yes TAKE 1 UT ne 6-11 TABLET BY Health (Synthroid, 00:00: MOUTH Levoxyl) 00 EVERY DAY. 150 MCG CALL tablet OFFICE, NEEDS VISIT. Allopurinol Allopurinol Yes U T 100 MG Oral 100 MG Oral P hysici Tablet Tablet ans Midodrine Midodrine Yes TAKE 1 UT HCl - 5 MG HCl - 5 MG TABLET 2 Physici Oral Tablet Oral Tablet TIMES ans DAILY. Immunizations Ordered Immunization Filled Date Status Comments Sour ce Name Immunization Name Pfizer-[employer] 2020-11-21 Completed [facility]ic ians COVID-19 Vacc 30 10:30:00 MCG/0.3ML Intramuscular Suspension Pfizer-BioNTech 2020-10-26 Completed [facility] COVID-19 Vacc 30 14:58:00 MCG/0.3ML Intramuscular Suspension Fluzone High-Dose 0.5 2019-05-21 Completed UT [facility] Intramuscular 00:00:00 Suspension Prefilled Syringe Pneumococcal Unknown Completed [facility] polysaccharide vaccine, 23 valent Hepatitis B, adult Unknown Completed [facility] Hepatitis B, adult Unknown Completed [facility] Fluzone Quadrivalent Unknown Completed [facility] 0.5 ML Intramuscular Suspension Vital Signs Vital Name Observation Time Observation Value Comments Source Systolic blood 2021-07-09 72 mm[Hg] [facility] pressure 16:24: Hospital Diastolic blood 2021-07-09 44 mm[Hg] [facility] pressure 16:24: Hospital Heart rate 2021-07-09 34 /min [facility] 16:: Hospital Body temperature 2021-07-09 36.44 Jennifer [facility] 16:24: Hospital Body height 2021-07-09 152.4 cm [facility] 16:24: Hospital Body weight 2021-07-09 85.7 kg [facility] 16:24: Hospital BMI 2021-07-09 36.90 kg/m2 [facility] 16:24:00 Hospital Oxygen saturation 2021-07-09 96 /min [facility] in Arterial blood 16:24:00 Hospital by Pulse oximetry Respiratory rate 2021-02-28 18 /min [facility] 20:45:00 Hospital Systolic blood 2021-01-16 84 mm[Hg] Location: E; [facility] pressure 16:27:00 Position: Sitting Diastolic blood 2021-01-16 52 mm[Hg] Location: RUE; [facility] pressure 16:27:00 Position: Sitting Body height 2021-01-16 60 [in_us] [facility] 16:27:00 Weight 2021-01-16 208.375 [lb_av] [facility] 16:27:00 Body mass index 2021-01-16 40.7 kg/m2 [facility] (BMI) [Ratio] 16:27:00 Body temperature 2021-01-16 95.8 [degF] Method: [facility] 16:27:00 Temporal Heart Rate 2021-01-16 71 /min Location: R [facility] 16:27:00 Brachial Artery; Systolic blood 2020-12-26 80 mm[Hg] Location: RUE; [facility] pressure 16:02:00 Position: Sitting Diastolic blood 2020-12-26 50 mm[Hg] Location: RUE; [facility] pressure 16:02:00 Position: Sitting Body height 2020-12-26 60 [in_us] [facility] 16:02:00 Weight 2020-12-26 206 [lb_av] [facility] 16:02:00 Body mass index 2020-12-26 40.23 kg/m2 [facility] (BMI) [Ratio] 16:02:00 Body temperature 2020-12-26 97 [degF] Method: [facility] 16:02:00 Temporal Heart Rate 2020-12-26 81 /min Location: R [facility] 16:02:00 Brachial Artery; Systolic blood 2020-11-19 98 mm[Hg] Location: RUE; [facility] pressure 11:16:00 Position: Sitting Diastolic blood 2020-11-19 65 mm[Hg] Location: RUE; [facility] pressure 11:16:00 Position: Sitting Body height 2020-11-19 60 [in_us] [facility] 11:16:00 Weight 2020-11-19 208 [lb_av] [facility] 11:16:00 Body mass index 2020-11-19 40.62 kg/m2 [facility] (BMI) [Ratio] 11:16:00 Body temperature 2020-11-19 97.1 [degF] Method: [facility] 11:16:00 Temporal Heart Rate 2020-11-19 106 /min [facility] 11:16:00 Systolic blood 2020-11-14 111 mm[Hg] Location: RUE; [facility] pressure 15:50:00 Position: Sitting Diastolic blood 2020-11-14 67 mm[Hg] Location: RUE; [facility] pressure 15:50:00 Position: Sitting Body height 2020-11-14 60 [in_us] [facility] 15:50:00 Weight 2020-11-14 208.375 [lb_av] [facility] 15:50:00 Body mass index 2020-11-14 40.7 kg/m2 [facility] (BMI) [Ratio] 15:50:00 Body temperature 2020-11-14 97.8 [degF] Method: Oral [facility] 15:50:00 Heart Rate 2020-11-14 98 /min Location: R [facility] 15:50:00 Radial; Respiratory rate 2020-11-14 16 /min Quality: Normal [facility] 15:50:00 Body height 2020-10-29 60 [in_us] [facility] 09:53:00 Weight 2020-10-29 205 [lb_av] [facility] 09:53:00 Body mass index 2020-10-29 40.04 kg/m2 [facility] (BMI) [Ratio] 09:53:00 Heart Rate 2020-10-29 81 /min [facility] 09:53:00 Systolic blood 2020-10-29 96 mm[Hg] Location: LUE; [facility] pressure 09:53:00 Position: Sitting Diastolic blood 2020-10-29 61 mm[Hg] Location: LUE; [facility] pressure 09:53:00 Position: Sitting Systolic blood 2020-07-23 95 mm[Hg] Location: LUE; [facility] pressure 09:01:00 Position: Sitting Diastolic blood 2020-07-23 61 mm[Hg] Location: LUE; [facility] pressure 09:01:00 Position: Sitting Heart Rate 2020-07-23 79 /min [facility] 09:01:00 Body height 2020-07-23 60 [in_us] [facility] 09:01:00 Weight 2020-07-23 199.125 [lb_av] [facility] 09:01:00 Body mass index 2020-07-23 38.89 kg/m2 [facility] (BMI) [Ratio] 09:01:00 Systolic blood 2020-05-28 91 mm[Hg] [facility] pressure 16:50:00 Diastolic blood 2020-05-28 57 mm[Hg] [facility] pressure 16:50:00 Body height 2020-05-28 60 [in_us] [facility] 16:50:00 Weight 2020-05-28 199 [lb_av] [facility] 16:50:00 Body mass index 2020-05-28 38.86 kg/m2 [facility] (BMI) [Ratio] 16:50:00 Body temperature 2020-05-28 98.4 [degF] [facility] 16:50:00 Heart Rate 2020-05-28 93 /min [facility] 16:50:00 Respiratory rate 2020-05-28 14 /min [facility] 16:50:00 O2 SAT 2020-05-28 93 % [facility] 16:50:00 Weight 2020-05-20 197 [lb_av] [facility] 13:54:00 Body mass index 2020-05-20 38.47 kg/m2 [facility] (BMI) [Ratio] 13:54:00 Body temperature 2020-05-20 98.5 [degF] [facility] 13:54:00 Systolic blood 2020-01-22 96 mm[Hg] Location: LUE; [facility] pressure 13:54:00 Position: Sitting Diastolic blood 2020-01-22 60 mm[Hg] Location: LUE; [facility] pressure 13:54:00 Position: Sitting Body height 2020-01-22 60 [in_us] [facility] 13:54:00 Weight 2020-01-22 201 [lb_av] [facility] 13:54:00 Body mass index 2020-01-22 39.26 kg/m2 [facility] (BMI) [Ratio] 13:54:00 Body temperature 2020-01-22 97.9 [degF] Method: Oral [facility] 13:54:00 Heart Rate 2020-01-22 79 /min [facility] 13:54:00 Systolic blood 2019-10-31 90 mm[Hg] [facility] pressure 14:45:00 Diastolic blood 2019-10-31 51 mm[Hg] [facility] pressure 14:45:00 Body height 2019-10-31 60 [in_us] [facility] 14:45:00 Body mass index 2019-10-31 41.1 kg/m2 [facility] (BMI) [Ratio] 14:45:00 Weight 2019-10-31 210.4375 [lb_av] [facility] 14:45:00 Body temperature 2019-10-31 97.7 [degF] Method: Oral [facility] 14:45:00 Heart Rate 2019-10-31 74 /min [facility] 14:45:00 O2 SAT 2019-10-31 96 % [facility] 14:45:00 Systolic blood 2019-10-31 102 mm[Hg] Location: LUE; [facility] pressure 09:47:00 Position: Sitting Diastolic blood 2019-10-31 68 mm[Hg] Location: LUE; [facility] pressure 09:47:00 Position: Sitting Body height 2019-10-31 60 [in_us] [facility] 09:47:00 Weight 2019-10-31 210.375 [lb_av] [facility] 09:47:00 Body mass index 2019-10-31 41.09 kg/m2 [facility] (BMI) [Ratio] 09:47:00 Body temperature 2019-10-31 97.4 [degF] Method: Oral [facility] 09:47:00 Heart Rate 2019-10-31 93 /min Location: L [facility] 09:47:00 Brachial Artery; Respiratory rate 2019-10-31 14 /min Quality: Normal [facility] 09:47:00 BP Systolic 2019-09-28 95 mm[Hg] Location: RUE; [facility] 15:55:00 Position: Sitting BP Diastolic 2019-09-28 67 mm[Hg] Location: RUE; [facility] 15:55:00 Position: Sitting Height 2019-09-28 60 [in_us] [facility] 15:55:00 Weight 2019-09-28 213.0625 [lb_av] [facility] 15:55:00 Body Mass Index 2019-09-28 41.61 kg/m2 [facility] Calculated 15:55:00 Temperature 2019-09-28 97.4 [degF] Method: Oral [facility] 15:55:00 Heart Rate 2019-09-28 69 /min Location: R [facility] 15:55:00 Brachial Artery; Quality: Normal Respiration Rate 2019-09-28 16 /min Quality: Normal [facility] 15:55:00 BP Systolic 2019-08-15 116 mm[Hg] [facility] 11:33:00 BP Diastolic 2019-08-15 70 mm[Hg] [facility] 11:33:00 Height 2019-08-15 60 [in_us] [facility] 11:33:00 Weight 2019-08-15 211.25 [lb_av] [facility] 11:33:00 Body Mass Index 2019-08-15 41.26 kg/m2 [facility] Calculated 11:33:00 Temperature 2019-08-15 97.1 [degF] Method: Oral [facility] 11:33:00 Heart Rate 2019-08-15 83 /min [facility] 11:33:00 O2 SAT 2019-08-15 95 % [facility] 11:33:00 BP Systolic 2019-08-03 91 mm[Hg] Location: RUE; [facility] 15:05:00 Position: Sitting BP Diastolic 2019-08-03 57 mm[Hg] Location: RUE; [facility] 15:05:00 Position: Sitting Height 2019-08-03 60 [in_us] [facility] 15:05:00 Weight 2019-08-03 211 [lb_av] [facility] 15:05:00 Body Mass Index 2019-08-03 41.21 kg/m2 [facility] Calculated 15:05:00 Heart Rate 2019-08-03 75 /min Location: R [facility] 15:05:00 Brachial Artery; Respiration Rate 2019-08-03 18 /min Quality: Normal [facility] 15:05:00 BP Systolic 2019-07-21 104 mm[Hg] Location: RLE; [facility] 13:40:00 Position: Sitting BP Diastolic 2019-07-21 66 mm[Hg] Location: RLE; [facility] 13:40:00 Position: Sitting Height 2019-07-21 60 [in_us] [facility] 13:40:00 Weight 2019-07-21 210 [lb_av] [facility] 13:40:00 Body Mass Index 2019-07-21 41.01 kg/m2 [facility] Calculated 13:40:00 Temperature 2019-07-21 96.9 [degF] Method: Oral [facility] 13:40:00 Heart Rate 2019-07-21 69 /min [facility] 13:40:00 O2 SAT 2019-07-21 99 % [facility] 13:40:00 BP Systolic 2019-07-17 106 mm[Hg] Location: LUE; [facility] 13:47:00 Position: Sitting BP Diastolic 2019-07-17 72 mm[Hg] Location: LUE; [facility] 13:47:00 Position: Sitting Height 2019-07-17 60 [in_us] [facility] 13:47:00 Weight 2019-07-17 212 [lb_av] [facility] 13:47:00 Body Mass Index 2019-07-17 41.4 kg/m2 [facility] Calculated 13:47:00 Temperature 2019-07-17 97.7 [degF] Method: Oral [facility] 13:47:00 Heart Rate 2019-07-17 104 /min [facility] 13:47:00 BP Systolic 2017-12-06 101 mm[Hg] Location: RUE; [facility] 11:04:00 Position: Sitting BP Diastolic 2017-12-06 66 mm[Hg] Location: RUConnor; [facility] 11:04:00 Position: Sitting Height 2017-12-06 62 [in_us] [facility] 11:04:00 Weight 2017-12-06 210.25 [lb_av] [facility] 11:04:00 Body Mass Index 2017-12-06 38.46 kg/m2 [facility] Calculated 11:04:00 Temperature 2017-12-06 97.7 [degF] Method: Oral [facility] 11:04:00 Heart Rate 2017-12-06 97 /min Location: R [facility] 11:04:00 Brachial Artery; Quality: Normal Respiration Rate 2017-12-06 18 /min Quality: Normal [facility] 11:04:00 Procedures Procedure Date / Time Performing Clinician Source Performed [id number] 2021-07-21 00:00:00 [facility] [id number] 2021-07-21 00:00:00 [facility] [id number] 2021-07-21 00:00:00 [facility] [id number] 2021-07-18 00:00:00 HOTA [facility] [id number] 2021-07-16 00:00:00 HOTA [facility] [id number] 2021-07-14 00:00:00 HOTA [facility] [id number] 2021-07-12 00:00:00 DORAI [facility] [id number] 2021-07-12 00:00:00 DORAI [facility] [id number] 2021-07-11 00:00:00 MALRE [facility] [place] [id number] 2021-07-11 00:00:00 HOTA [facility] [id number] 2021-07-10 00:00:00 HOTA [facility] [id number] 2021-07-09 00:00:00 [email or web address] [facility] [id number] 2021-07-09 00:00:00 [email or web address] [facility] [id number] 2021-07-09 00:00:00 [email or web address] [facility] [id number] 2021-07-09 00:00:00 [email or web address] [facility] [id number] 2021-07-09 00:00:00 [email or web address] [facility] T3 2021-03-11 15:31:00 [facility] 2021-03-11 15:31:00 [facility] THYROID STIMULATING 2021-03-11 15:31:00 [facility], FREE 2021-03-08 16:02:00 [facility] TSH 2021-03-08 16:02:00 [facility] HEMODIALYSIS 2021-02-28 16:45:06 Juventino Zhao [facility] POC GLUCOSE 2021-02-28 16:22:00 Juventino Zhao [facility] POC GLUCOSE 2021-02-28 13:19:00 Juventino Zhao spital T4, FREE 2021-02-28 09:17:00 Jorge Quinn spital T3 2021-02-28 09:17:00 Jorge Quinn Ho spital POC GLUCOSE 2021-02-28 02:30:00 Juventino Zhao [facility] POC GLUCOSE 2021-02-27 23:07:00 Juventino Zhao [facility] POC GLUCOSE 2021-02-27 16:25:00 Juventino Zhao spital POC GLUCOSE 2021-02-27 13:40:00 Juventino Zhao spital THYROID STIMULATING 2021-02-27 09:12:00 [facility] HORMONE T4, FREE 2021-02-27 09:12:00 [facility] Christian Ho spital T3 2021-02-27 09:12:00 Morena Sun [facility] POC GLUCOSE 2021-02-27 02:32:00 Juventino Zhao Ho [facility]ital POC GLUCOSE 2021-02-27 01:11:00 Juventino Zhao [facility] POC GLUCOSE 2021-02-26 14:13:00 Juventino Zhao [facility] HEMODIALYSIS 2021-02-26 11:28:12 Juventino Zhao [facility] THYROID STIMULATING 2021-02-26 09:31:00 [facility] HORMONE T4, FREE 2021-02-26 09:31:00 [facility] Elva Alcaraz spital ANTI XA, LOW MOLECULAR 2021-02-26 03:02:00 [facility] WEIGHT Lianet POC GLUCOSE 2021-02-26 02:35:00 Juventino Zhao [facility] POC GLUCOSE 2021-02-25 22:15:00 Juventino Zhao [facility] POC GLUCOSE 2021-02-25 17:03:00 Juventino Zhao [facility] POC GLUCOSE 2021-02-25 14:14:00 Juventino Zhao spital ANTI XA, LOW MOLECULAR 2021-02-25 08:53:00 [facility] WEIGHT Lianet HC COMPLETE BLD COUNT 2021-02-25 08:53:00 Thi Sierra [facility] W/AUTO DIFF POC GLUCOSE 2021-02-24 22:34:00 Juventino Zhao spital HEPATITIS B SURFACE 2021-02-24 21:47:00 [facility] ANTIGEN HEMODIALYSIS 2021-02-24 21:46:32 Juventino Zhao [facility] T4, FREE 2021-02-24 20:14:00 [facility] T3 2021-02-24 20:14:00 [facility] THYROID STIMULATING 2021-02-24 20:14:00 [facility] HORMONE POC GLUCOSE 2021-02-24 17:25:00 Juventino Zhao Ho spital POC GLUCOSE 2021-02-24 13:19:00 Juventino Zhao spital HC COMPLETE BLD COUNT 2021-02-24 09:41:00 [facility] W/AUTO DIFF BASIC METABOLIC PANEL 2021-02-24 09:41:00 [facility] GLIADIN PEPTIDE ABS, IGA 2021-02-24 09:41:00 [facility] AND IGG Lianet ESTIMATED GFR 2021-02-24 09:41:00 Thi Sierra Ho spital POC GLUCOSE 2021-02-24 00:47:00 Juventino Zhao Ho spital POC GLUCOSE 2021-02-23 22:10:00 Juventino Zhao Ho spital POC GLUCOSE 2021-02-23 17:56:00 Juventino Zhao Ho spital POC GLUCOSE 2021-02-23 13:03:00 Juventino Zhao Ho spital HC COMPLETE BLD COUNT 2021-02-23 09:41:00 [facility] W/AUTO DIFF BASIC METABOLIC PANEL 2021-02-23 09:40:00 [facility] ESTIMATED GFR 2021-02-23 09:40:00 Thi Sierra Ho spital POC GLUCOSE 2021-02-23 01:06:00 Juventino Zhao Ho spital POC GLUCOSE 2021-02-22 22:37:00 Juventino Zhao Ho spital TTE COMPLETE, WO CONTRAST, 2021-02-22 21:00:00 Samani, Thi [facility] W DOPPLER ([id number]) VENIPUNC NEED PHYS 2021-02-22 19:33:29 [facility] [place] [facility] [place] [facility] POC GLUCOSE 2021-02-22 17:47:00 Juventino Zhao spital BLOOD CULTURE, AEROBIC & 2021-02-22 16:58:00 [facility] ANAEROBIC Lianet ANTI XA APIXABAN 2021-02-22 16:58:00 [facility] Christian H ospital Lianet KAPPA LAMBDA FREE LIGHT 2021-02-22 16:58:00 [facility] CHAIN WITH RATIO Lianet THYROID PEROXIDASE 2021-02-22 16:58:00 [facility] ANTIBODY THYROGLOBULIN ANTIBODY 2021-02-22 16:58:00 [facility] T3 2021-02-22 16:58:00 Jorge Quinn spital SERUM ELECTROPHORESIS 2021-02-22 16:58:00 [facility] Lianet POC GLUCOSE 2021-02-22 12:47:00 Juventino Zhao spital POC GLUCOSE 2021-02-22 10:26:00 Juventino Zhao spital T3, FREE 2021-02-22 10:25:00 Thi Sierra spital T4, FREE 2021-02-22 10:25:00 Thi Sierra spital HEMOGLOBIN A1C 2021-02-22 10:25:00 Thi Sierra spital LIPID PANEL 2021-02-22 10:25:00 Thi Sierra spital CORTISOL LEVEL, RANDOM 2021-02-22 10:25:00 Thi Sierra [facility] TROPONIN 2021-02-22 05:29:00 RehrerSee [facility] PREALBUMIN LEVEL 2021-02-22 02:06:00 Thi Sierra ospital PHOSPHORUS LEVEL 2021-02-22 02:06:00 Thi Sierra ospital MAGNESIUM LEVEL 2021-02-22 02:06:00 [facility] LIP[facility] PANEL 2021-02-22 02:06:00 [facility] LIPASE LEVEL 2021-02-22 02:06:00 [facility] LACTIC ACID LEVEL 2021-02-22 02:06:00 Rigo [facility] COMPREHENSIVE METABOLIC 2021-02-22 02:06:00 Rigo [facility] PANEL CREATINE KINASE, TOTAL 2021-02-22 02:06:00 Rigo [facility] THYROID STIMULATING 2021-02-22 02:06:00 [facility]ORM[facility] T4, FREE 2021-02-22 02:06:00 [facility] B NATRIURETIC PEPTIDE 2021-02-22 02:06:00 [facility]OP[facility] 2021-02-22 02:06:00 Rigo [facility] sp[facility] ESTIMATED GFR 2021-02-22 02:06:00 [facility] BILIRUBIN DIRECT 2021-02-22 02:06:00 [facility] COVID-19 QUALITATIVE 2021-02-22 01:26:00 Rehrer, [facility] RT-PCR TROPONIN 2021-02-22 01:26:00 Rehrer, [facility] XR CHEST 1 VW PORTABLE 2021-02-22 01:01:51 Rehrer, [facility] BLOOD CULTURE, AEROBIC & 2021-02-22 00:43:00 Rehrer, [facility] ANAEROBIC HC COMPLETE BLD COUNT 2021-02-21 22:56:00 Rehrer, [facility] W/AUTO DIFF COMPREHENSIVE METABOLIC 2021-02-21 22:56[facility] 2021-02-21 22:56:00 Rehrer, [facility] B NATRIURETIC PEPTIDE 2021-02-21 22:56:00 Rehrer, [facility] ESTIMATED GFR 2021-02-21 22:56:00 Rehrer, [facility] ECG ED PRELIMINARY 2021-02-21 22:49:06 Rehrer, [facility] INTERPRETATION ECG 12-LEAD 2021-02-21 22:19:43 Rehrer, [facility] CVRAD - Right Upper 2021-01-24 00:00:00 [facility] Arterial Duplex Uni/Lmt - [id number] [N] 2D Echo complete, with 2021-01-17 00:00:00 [facility] Doppler [id number] CVRAD - Right Upper 2020-12-27 00:00:00 [facility] Arterial Duplex Uni/Lmt - [id number] [N] 2D Echo complete, with 2020-12-27 00:00:00 [facility] Doppler [id number] US Pelvis with Pelvis 2020-11-19 00:00:00 [facility] Transvaginal 10043 MA Breast mammogram 2020-11-19 00:00:00 [facility] bilateral [id number] MA Breast mammogram 2020-11-14 00:00:00 [facility] bilateral [id number] [QL] TSH, 3RD GENERATION 2020-10-31 00:00:00 [facility] [QL] T4, FREE 2020-10-31 00:00:00 [facility] XRAY Chest 2 views [id number] 2020-07-26 00:00:00 [facility] [QL] CALCIUM, IONIZED 2020-07-23 00:00:00 [facility] [Q] CALCIUM 2020-07-23 00:00:00 [facility] [QL] ALBUMIN 2020-07-23 00:00:00 [facility] [QL] CALCIUM, IONIZED 2020-07-16 00:00:00 [facility] [QL] PTH, INTACT (WITHOUT 2020-07-16 00:00:00 [facility] CALCIUM) [Q] CALCIUM 2020-07-16 00:00:00 [facility] [QL] ALBUMIN 2020-07-16 00:00:00 [facility] [QL] PHOSPHATE ( 2020-07-16 00:00:00 [facility] PHOSPHORUS) [QL] MAGNESIUM 2020-07-16 00:00:00 [facility] [id number] 2020-06-06 00:00:00 [email or web address].[email or web address] [facility] [id number] 2020-06-06 00:00:00 CHAKR.[email or web address] [facility] [id number] 2020-06-06 00:00:00 HOTA [facility] [id number] 2020-06-05 00:00:00 HOTA [facility] NM Parathyroid SPECT [id number] 2020-05-30 00:00:00 [facility] [QL] TSH, 3RD GENERATION 2020-03-05 00:00:00 [facility] [QL] T4, FREE 2020-03-05 00:00:00 [facility] [id number] 2019-11-27 00:00:00 [facility] [id number] 2019-11-27 00:00:00 ENC[facility] [id number] 2019-11-27 00:00:00 [facility] [id number] 2019-11-27 00:00:00 E[facility] [id number] 2019-11-27 00:00:00 E[facility] [id number] 2019-11-27 00:00:00 [facility] [id number] 2019-11-27 00:00:00 ENC[facility] [QLH] TSH, GENERATION 2019-10-31 00:00:00 [facility] [id number] 2019-10-11 00:00:00 [facility] [id number] 2019-10-11 00:00:00 [facility] [id number] 2019-10-11 00:00:00 E[facility] [id number] 2019-10-11 00:00:00 E[facility] [id number] 2019-10-11 00:00:00 E[facility] [id number] 2019-10-11 00:00:00 ENC[facility] [id number] 2019-10-11 00:00:00 [facility] [id number] 2019-10-11 00:00:00 E[facility] [id number] 2019-10-11 00:00:00 ENCPL [id number] 2019-10-11 00:00:00 E[facility] [id number] 2019-10-11 00:00:00 E[facility] [id number] 2019-10-11 00:00:00 E[facility] [id number] 2019-10-11 00:00:00 E[facility] [id number] 2019-10-11 00:00:00 E[facility] [id number] 2019-10-11 00:00:00 ENCPL [id number] 2019-10-11 00:00:00 E[facility] [id number] 2019-10-11 00:00:00 E[facility] [id number] 2019-10-11 00:00:00 E[facility] [id number] 2019-10-11 00:00:00 E[facility] [id number] 2019-10-11 00:00:00 E[facility] [id number] 2019-10-11 00:00:00 E[facility] [id number] 2019-10-11 00:00:00 E[facility] [id number] 2019-10-11 00:00:00 E[facility] [id number] 2019-10-11 00:00:00 E[facility] [id number] 2019-10-11 00:00:00 ENC[facility] [id number] 2019-10-11 00:00:00 E[facility] [id number] 2019-10-11 00:00:00 ENCPL [id number] 2019-10-11 00:00:00 ENCPL [QL] TSH, 3RD GENERATION 2019-09-28 00:00:00 [facility] XRAY Ankle 3 views 2019-09-28 00:00:00 [facility] Bilateral [id number] XRAY Foot 3 views 2019-09-28 00:00:00 [facility] Bilateral [id number] XRAY Toe [id number] 2019-09-28 00:00:00 [facility] CVRAD - Hemodialysis 2019-07-21 00:00:00 [facility] Access Duplex - [id number] CVRAD - Left Upper Vein 2017-12-09 00:00:00 [facility] Mapping Limited - [id number] [QL] HEPATITIS B CORE AB 2017-11-09 00:00:00 [facility] TOTAL [QL] HEPATITIS PANEL 2017-11-09 00:00:00 [facility] [QL] HEPATITIS B SURFACE 2017-11-09 00:00:00 [facility] ANTIBODY (QUANT) History [facility]roid [facility] Substernal Thyroidectomy History [facility] Thyroid Surgery [facility] Luiz-Thyroidectomy Left Lobe History of Colostomy [facility] Cholecystectomy [facility] History of Hernia Repair [facility] History of Laminectomy [facility] Lumbar History of Arteriovenous [facility] fistula creation procedure History of [facility] Gastrointestinal surgery Plan of Care Planned Activity Planned Date Details Comments Source Future Scheduled 2021-12-19 [N] 2D Echo complete, [facility] Test 00:00:00 with Doppler [id number] [code = [N] 2D Echo complete, with Doppler [id number]] Future Scheduled 2021-12-19 [N] 2D Echo complete, [facility] Test 00:00:00 with Doppler [id number] [code = [N] 2D Echo complete, with Doppler 99856] Diagnostic Test 2020-12-27 [N] 2D Echo complete, [facility] Pending 00:00:00 with Doppler [id number] [code = [N] 2D Echo complete, with Doppler 27964] Diagnostic Test 2020-12-27 CV[facility] - Right Upper [facility] Pending 00:00:00 Arterial Duplex Uni/Lmt - [id number] [code = 38301] Diagnostic Test 2020-12-27 CVRAD - Right Upper [facility] Pending 00:00:00 Arterial Duplex Uni/Lmt - 04788 [code = 42795] Diagnostic Test 2020-12-27 [N] 2D Echo complete, [facility] Pending 00:00:00 with Doppler 25128 [code = [N] 2D Echo complete, with Doppler 50575] Future Scheduled 2020-12-23 [QL] [facility] 00:[facility]:00 GENERATION [code = [QL] TSH, 3RD GENERATION] Future Scheduled 2020-12-23 [QL] T4, FREE [code = [facility] Test 00:00:00 [QL] T4, FREE] Diagnostic Test 2020-05-30 NM Parathyroid SPECT [facility] Pending 00:00:00 57179 [code = 99611] Diagnostic Test 2020-05-30 NM Parathyroid SPECT [facility] Pending 00:00:00 05948 [code = 13637] Diagnostic Test 2019-07-21 [facility] - Hemodialysis [facility]ending 00:00:00 Access Duplex - [id number] [code = 56987] Future Scheduled 65+ [facility] VACCINE (1 of 4 - PCV13) [code = 65+ PNEUMOCOCCAL VACCINE (1 of 4 - PCV13)] Future Scheduled DIABETES: RETINAL EYE [facility] Test EXAM [code = DIABETES: RETINAL EYE EXAM] Future Scheduled DIABETIC FOOT EXAM [facility] Test [code = DIABETIC FOOT EXAM] Future Scheduled Hepatitis C screening [facility] Test (procedure) [code = [id number]] Future Scheduled BREAST CANCER [facility] Test SCREENING [code = BREAST CANCER SCREENING] Future Scheduled COLONOSCOPY SCREENING [facility] Test [code = COLONOSCOPY SCREENING] Future Scheduled [facility] (#[facility] [code = SHINGLES VACCINES (#1)] Future Scheduled [facility] [code = INFLUENZA VACCINE] Encounters Start End Encounter Admission Attending Care Care Encounter Source Date/Time Date/Time Type Type Clinicians Facility Department ID 2022-02-27 Outpatient [facility] [id number] [place] 14:46:38 [id number] [facility] 2022-02-21 Outpatient DOUGHERTY, [facility] [id number] [place] 02:55:17 KRYSTAL [id number] [facility] 2022-02-13 Outpatient TAMAR, [facility] [id number] UT 11:16:05 AMY [id number] [facility] 2022-02-12 Outpatient TAMAR, [facility] [id number] UT 16:03:44 AMY [id number] [facility] 2022-02-04 Outpatient TAMAR, [facility] [id number] UT 13:39:26 AMY [id number] [facility] 2022-01-26 Outpatient LOLITA, [facility] [id number] UT 08:10:27 RIZWAN [id number] [facility] 2021-12-30 Outpatient [facility] [id number] [place] 05:50:14 [id number] [facility] 2021-12-15 Outpatient LOLITA, [facility] [id number] UT 10:47:43 RIZWAN [id number] [facility] 2021-10-16 Outpatient 3 BRIDGER HAMMOND CRD [id number] ENCPL 13:12:13 NI 10292021-10-16 Outpatient 3 STEPHANY ENCPL CRD [id number] ENCPL 13:10:54 NI 7 2021-10-16 Outpatient 3 [id number] ENCPL REF [id number] ENCPL 13:10:12 10252021-10-16 Outpatient 3 [id number] ENCPL REF [id number] ENCPL 13:09:50 10242021-10-16 Outpatient 3 JANNIE HAMMONDPL OT ENCPL 09:20:30 NI 0306 2021-10-16 Outpatient 3 [id number] ENCPL REF ENCPL 09:18:12 0302021-10-16 Outpatient 3 [id number] ENCPL REF ENCPL 09:02:20 0122021-10-16 Outpatient 3 [id number] ENCPL REF ENCPL 09:02:05 1192021-04-28 Outpatient FARHAT, [facility] [id number] [place] [facility] 2021-02-10 Outpatient LOLITA, [facility] [id number] [place] 14:17:18 [facility] 2021-01-25 Outpatient REYES JIMENEZ [facility] [id number] [place] 03:45:13 [facility] 2021-01-25 Outpatient ALISTAIR RIDER [facility] [id number] [place] 03:45:12 [facility] 2021-01-25 Outpatient TAMAR, [facility] [id number] [place] 03:45:12 [facility] 2020-12-10 Inpatient Price-Ou [facility] DAYS [id number] H[facility] 07:30:00 w, 83098 [facility] 2020-06-14 Outpatient ERLINDA [facility] [id number] MH 08:55:34 TREVON [facility] 2020-06-04 Inpatient Rosalio-Ou [facility] DAYS [id number] [facility] 14:45:00 w, 50722 [facility] are [facility] 2019-11-26 Inpatient 3 BRIDGER HAMMOND OT ENCPL 14:13:00 NI 0308 2018-12-20 Inpatient E [facility] [id number] [facility] H 05:54:00 2022-01-27 2022-02-04 Inpatient ROWAN, [facility] [id number] [place] 00:00:00 00:00:00 PJ [address] 2022-01-27 2022-01-27 Outpatient CLARA, [facility] [id number] [place] 00:00:00 00:00:00 CLIFFORD [address] 2022-01-27 2022-01-27 Outpatient TAMAR, [facility] [id number] [place] 00:00:00 00:00:00 AMY [address] 2022-01-27 2022-01-27 Outpatient TAMAR, [facility] [id number] [place] 00:00:00 00:00:00 AMY [address] 2022-01-27 2022-01-27 Outpatient BHKEIRAJ, [facility] [id number] [place] 00:00:00 00:00:00 DALE [address] 2022-01-27 2022-01-27 Outpatient YOUPRINCESSI, [facility] [id number] [place] 00:00:00 00:00:00 RAYAN 012 Method i 2022-01-01 2022-01-01 Outpatient SETH, [facility] [id number] [place] 00:00:00 00:00:00 BILL 449 Method i 2021-12-29 2021-12-29 Outpatient GORTHI, [facility] [id number] [place] 00:00:00 00:00:00 NYDIAHANCindi 920 Met hodi 2021-12-29 2021-12-29 Outpatient REED, [facility] [id number] [place] 00:00:00 00:00:00 AHMED 919 Method i 2021-12-03 2021-12-03 Outpatient FAZA, [facility] [id number] [place] 00:00:00 00:00:00 ALLAN [address] 2021-11-19 2021-11-19 Outpatient FAZA, [facility] [id number] [place] 00:00:00 00:00:00 ALLAN [address] 2021-10-29 2021-10-29 Outpatient FAZA, [facility] [id number] [place] 00:00:00 00:00:00 ALLAN [address] 2021-10-29 2021-10-29 Outpatient FAZA, [facility] [id number] [place] 00:00:00 00:00:00 ALLAN [address] 2021-10-07 2021-10-07 Outpatient ELVIRA ANGLIN [facility] [id number] [place] 00:00:00 00:00:[address] 2021-09-02 2021-09-02 Outpatient ELVIRA ANGLIN [facility] [id number] [place] 00:00:00 00:00:00 384 Method i 2021-08-26 2021-08-26 Outpatient DIEGO Gurrola [facility] [id number] [facility] 06:47:00 06:47:00 w, 77003 [facility] 2021-08-22 2021-08-22 Outpatient ELVIRA ANGLIN [facility] [id number] [place] 00:00:00 00:00:00 194 Method i 2021-08-04 2021-08-04 Outpatient ELVIRA ANGLIN [facility] [id number] [place] 00:00:00 00:00:00 522 Method i 2021-07-09 2021-07-19 Inpatient EM Tessa [facility] [id number] [facility] 14:22:00 14:36:[address] [place] [address] 2021-07-09 2021-07-19 Inpatient EM Tessa [facility] [id number] [facility] 14:22:00 14:36:00 [place] [address] [facility] 2021-07-09 2021-07-10 Office SETH, 1.2.840.1 [id number] [place] 00:00:00 00:00:00 Visit BILL 31981.1.1 [address] .3.012686 .8 2021-07-09 2021-07-09 Outpatient REMEDIOS ZarateNW REF [id number] [facility] 18:56:00 18:56:[address] [place] [address] are [facility] 2021-07-09 2021-07-09 Outpatient Tessa HCANW REF [id number] [facility] 18:56:00 18:56:00 [place] [id number] [facility] are [facility] 2021-07-09 2021-07-09 Travel 1.2.840.1 1.2.344.947 [id number] Methodi 00:00:00 00:00:[address] 3.430.2.7 0.2.7.3.698 Ho spita .3.285456 084.8 l .8 2021-07-07 2021-07-07 Travel 1.2.840.1 1.2.864.371 3667 [id number] Methodi 00:00:00 00:00:[address] 3.430.2.7 0.2.7.3.698 Ho spita .3.741642 084.8 l .8 2021-07-07 2021-07-07 Telephone [place], 1.2.840.1 [id number] Methodi 00:00:00 00:00:[address] 3.430.2.7 Hospit a .3.181370 l .8 2021-06-24 2021-06-24 Travel 1.2.840.1 1.2.493.515 2644 [id number] Methodi 00:00:00 00:00:[address] 3.430.2.7 0.2.7.3.698 Ho spita .3.661860 084.8 l .8 2021-03-31 2021-03-31 Adriano Ann, 1.2.840.1 [id number] 9531 Methodi 00:00:00 00:00:00 Only Bill 69573.1.[address] Lianet 3.430.2.7 Hospit a .3.753456 l .8 2021-03-31 2021-03-31 Adriano Sun, 1.2.840.1 [id number] Methodi 00:00:00 00:00:00 Only Morena 70455.1.[address] 3.430.2.7 Hospit a .3.935936 l .8 2021-03-11 2021-03-11 Jono Sun, 1.2.840.1 [id number] 21 [id number] Methodi 09:23:23 10:26:37 Visit Morena 07172.1.[address] 3.430.2.7 Hospit a .3.767316 l .8 2021-03-11 2021-03-11 Travel 1.2.840.1 1.2.298.247 1352 362823 Methodi 00:00:00 00:00:[address] 3.430.2.7 0.2.7.3.698 Ho spita .3.843440 084.8 l .8 2021-03-10 2021-03-10 Telephone GarrettReyes lawson DANITZA 1.2.840.114 [id number] [place] 00:00:00 00:00:00 HEIGHTS 350.1.13.58 He alth MULTI 9.2.7.2.686 SPECIALTY [id number] CLINIC 8 2021-03-08 2021-03-08 Orders Ingrid Reyes UTP 1.2.840.114 12 [id number] [place] 00:00:00 00:00:00 Only HEIGHTS 350.1.13.58 He alth MULTI 9.2.7.2.686 SPECIALTY [id number] CLINIC 8 2021-02-21 2021-02-28 [facility] 1.2.840.1 [id number] Methodi 17:16:00 19:23:00 Encounter Juventino Zhao JustynaOtilia 33603.1.[address] 3.430.2.7 Hospit a .3.157564 l .8 2021-02-06 2021-02-06 Telephone Grabiel Gould 1.2.840.114 [id number] [place] 00:00:00 00:00:00 BELLAIRE 350.1.13.58 H [facility] MEDICAL 9.2.7.2.686 BUILDING [id number] 3 2021-02-05 2021-02-05 Telephone Grabiel Gould UTP 1.2.840.114 [id number] [place] 00:00:00 00:00:00 BELLAIRE 350.1.13.58 H [facility] MEDICAL 9.2.7.2.686 BUILDING [id number] 3 2021-01-31 2021-01-31 [facility] BP8 [id number] [facility] 07:22:00 07:22:00 w, [address] [facility] are Medical Center 2021-01-24 2021-01-24 Appointradha VASCULAR, [facility] Cardiology 74 [id number] [place] 14:30:00 14:30:00 t; BELLAIRE - [place] Physi ci VASCULAR, Medical ans BELLAIRE [place] 2021-01-16 2021-01-16 AppointDANITZA David Cardiology [id number] [place] 15:45:00 15:45:00 t; GRABIEL GOULD M.D. - [place] Nathan Fan ans Donna [place] 2021-01-16 2021-01-16 AppointDANITZA Mueller Non-Invasiv 7 [id number] [place] 15:00:00 15:00:00 t; ECHO e - [place] Phys ici [facility] 2020-12-26 2020-12-26 AppointDANITZA David Multispecia [id number] [place] 15:15:00 15:15:00 t; GRABIEL GOULD M.D. y - Carlotta Fan M.D. 2020-12-05 2020-12-05 Outpatient [facility] Hospital[facility] REF BP8 [id number] [facility] 16:11:00 16:11:00 w, [address] [facility] are [facility] 2020-11-21 2020-11-21 Appointradha COMasha, DANITZA UTP [id number] UT 10:30:00 10:30:00 t; CO19, NURSE-COOLE P hyyuan NURSE-COOL Y ans EY 2020-11-19 2020-11-19 AppointDANITZA [place] Obstetrics [id number] [place] 10:45:00 10:45:00 t; ALISTAIR RIDER M.D. and Vini SAINZ Gynecology [facility] 2020-11-14 2020-11-14 DANITZA [facility] [id number] [place] 15:40:00 15:40:00 t; AMY, Medicine - Raphael MANCERA M.D. [facility] AMY Medical [facility] 2020-10-29 2020-10-29 AppointDANITZA Comer UTP [id number] UT 09:20:00 09:20:00 t; REYES JIMENEZ M.D. P hysici MARC, M.D. ans 2020-10-26 2020-10-26 Appointradha DE JESUSMasha, [facility] [id number] [place] 10:20:00 10:20:00 t; CO19, NURSE-COOLE P [place] NURSE-COOL Y ans EY 2020-10-14 2020-10-14 [facility] Psych[facility]ry 70 [id number] [place] 16:00:00 16:00:00 t; RIZWAN, Outpatient Raphael MCHUGH M.D. [facility] SMOOTH ASTORGA M.D. 2020-09-03 2020-09-03 [facility]rad[facility] [id number] [place] 10:20:00 10:20:00 t; REYES JIMENEZ M.D. P hysici MARC, M.D. [facility] 2020-08-12 2020-08-12 Akua [facility] Psych[facility]ry 69 [id number] [place] 16:00:00 16:00:00 t; RIZWAN, Outpatient Raphael MCHUGH M.D. [facility] SMOOTH ASTORGA M.D. 2020-07-29 2020-07-29 Akua COFFEY [facility] Cardiothora 702 [id number] [place] 15:00:00 15:00:00 t; TREVON COFFEY cic & Raphael LESTER M.D. Vascular shalom [facility] Surgery - [facility] 2020-07-26 2020-07-26 Emergency E CHUKWUMA, MHBL MHBL 7531 MHBL 17:10:00 20:32:00 DIMA 2020-07-23 2020-07-23 Akua JIMENEZ [facility] Multispecia [id number] [place] 09:00:00 09:00:00 t; REYES JIMENEZ M.D. [facility] Josh WOODS M.D. [facility] [address] 2020-07-12 2020-07-16 Inpatient ERLINDA, [facility] 7530 [facility] 05:55:00 17:52:00 TREVON 2020-07-12 2020-07-12 Akua COFFEY [facility] [id number] [place] 08:30:00 08:30:00 t; TREVON COFFEY Phy sici PHILIP, M.D. ans Donna 2020-06-18 2020-06-18 Outpatient ERLINDA [facility] ED 7529 MHBL 10:18:00 10:18:00 TREVON 2020-06-17 2020-06-17 Akua [facility] Psych[facility]ry 68 [id number] [place] 16:00:00 16:00:00 t; RIZWAN, Outpatient Raphael MCHUGH M.D. [facility] RIZWANSMOOTH M.D. 2020-05-28 2020-05-28 Appointradha [facility] Cardiothora [id number] [place] 15:00:00 15:00:00 t; TREVON COFFEY, [facility] & Raphael LESTER M.D. Vascular ans Donna Surgery - [facility] 2020-05-20 2020-05-20 Appointradha REBOLLAR [facility] [id number] [place] 14:00:00 14:00:00 t; Donna HEWITT Surgery [facility] Nathan HEWITT M.D. [place] 2020-05-07 2020-05-07 Appointradha GURROLA [facility] UTP [id number] [place] 13:30:00 13:30:00 t; W, Physic theodore Duqeu M.D. KRISTOFER, M.D. 2020-04-22 2020-04-22 Appointradha [facility] Psych[facility]ry [id number] [place] 16:00:00 16:00:00 t; RIZWAN, Outpatient Raphael MCHUGH M.D. [facility] SMOOTH ASTORGA M.D. 2020-03-05 2020-03-05 [facility] [id number] [place] 10:20:00 10:20:00 t; REYES JIMENEZ M.D. Surgery - Physicjuana WOODS M.D. [facility] 2020-01-22 2020-01-22 Akua SILVA, [facility] Minimally [id number] [place] 14:00:00 14:00:00 t; Brittney SETH M.D. [facility] Reji Morelos M.D. ([facility]) 2020-01-08 2020-01-08 Appointradha SILVA, [facility] [id number] [place] 14:45:00 14:45:00 t; DORINDA [facility] Donna Delaney M.D. 2019-11-15 2019-11-26 [facility] 7527 [facility] 06:09:00 14:00:00 DORINDA 2019-11-15 2019-11-15 Appointradha SILVA, [facility] Family [id number] [place] 08:00:00 08:00:00 t; Nohelia SETH - Funmi SILVA M.D. [facility] Nathan SETH M.D. [place] 2019-11-15 2019-11-15 [facility] [id number] [place] 07:30:00 07:30:00 t; Donna RICE ans AMIT, M.D. 2019-10-31 2019-10-31 [facility] ROSALIOBRIAN [facility] Cardiothflintstone [id number] [place] 14:00:00 14:00:00 t; W, cic & Physic i DAVID HENSON Vascular a rios EPPS M.D. [facility] 2019-10-31 2019-10-31 Appointradha MANCERA, [facility] Family [id number] [place] 09:30:00 09:30:00 t; Nohelia REYES - Raphael MANCERA M.D. [facility] Nathan REYES M.D. [place] 2019-10-10 2019-10-10 [facility] GALILEO [facility] [id number] [place] 14:00:00 14:00:00 t; W, Physic i theodore HERNANDEZ M.D. KRISTOFER, M.D. 2019-10-10 2019-10-10 Appointradha [facility] [id number] [place] 11:20:00 11:20:00 t; REYES JIMENEZ M.D. P hysici MARC, M.D. [facility] 2019-10-01 2019-10-06 Inpatient U JACI, [facility] ED 0011 [facility] 01:07:00 18:45:00 ULISES 2019-09-28 2019-09-28 Appointradha ADELSO [facility] Family [id number] [place] 15:30:00 15:30:00 t; LIANET DARDEN, Nohelia - Josh MARTINI M.D. [facility] 2019-08-15 2019-08-15 Appointradha GROVERBRIAN [facility] Cardiothora [id number] [place] 11:15:00 11:15:00 t; W, cic & Physic i ROSALIO-Phong HENSON, Vascular a rios EPPS M.D. Surgery - [facility] 2019-08-11 2019-08-11 DANITZA Schilling Psychiatry [id number] [place] 16:00:00 16:00:00 t; RIZWAN, Christine MCHUGH M.D. [facility] SMOOTH ASTORGA M.D. 2019-08-03 2019-08-03 AppointDANITZA David Multispecia [id number] [place] 15:00:00 15:00:00 t; GRABIEL GOULD M.D. y - P Carlotta Garrett M.D. 2019-07-31 2019-07-31 DANITZA Schilling [facility] [id number] [place] 15:00:00 15:00:00 t; Radha ASTORGA i, M.D. ans SILVIA, M.D. 2019-07-25 2019-07-25 DANITZA Dhillon Minimally [id number] [place] 11:00:00 11:00:00 t; Donna MEEK Invasive Ph dorinda MANZANO, [facility] shalom MEEK M.D. [place] ([facility] 2019-07-26 2019-07-24 Inpatient U [facility] 7526 [facility] 11:35:00 12:26:00 2019-07-21 2019-07-21 Appointradha GROVERBRIAN [facility] Cardiothora [id number] [place] 12:00:00 12:00:00 t; W, cic & Physic i DAVID HENSON, Vascular a rios EPPS M.D. Surgery - Reji HENSON M.D. [facility] 2019-07-21 2019-07-21 [facility] VASCULAR, [facility] UTP [id number] [place] 10:00:00 10:00:00 t; [facility] Physic i VASCULAR, ans [facility] 2019-07-17 2019-07-17 Appointradha ANDREYESSY, [facility] Minimally [id number] [place] 14:00:00 14:00:00 t; Brittney SETH M.D. Surgeons of an Reji SETH M.D. ([facility]) 2019-06-13 2019-06-13 Appointradha GURROLA [facility] Cardiothora [id number] [place] 10:00:00 10:00:00 t; W, cic & Physic i Willie HERNANDEZ M.D. Surgery - Jeanie HENSON M.D. 2019-06-12 2019-06-12 Akua DOUGHERTY, [facility] UTP [id number] [place] 14:45:00 14:45:00 t; Donna RICE ans AMIT, M.D. 2019-05-30 2019-05-30 [facility], [facility] UTP [id number] [place] 12:00:00 12:00:00 t; Donna RICE ans AMIT, M.D. 2019-05-30 2019-05-30 Outpatient FB FB [id number] MHFB 10:24:00 10:24:00 2019-05-11 2019-05-11 Akua STEVEN [facility] Cardiology [id number] [place] 16:00:00 16:00:00 t; ECHO [facility] Physic i [facility]CHO Center 2019-05-11 2019-05-11 Appointradha GOULD, [facility] UTP [id number] [place] 14:45:00 14:45:00 t; GRABIEL GOULD M.D. P hysici POYEE, ans M.D. 2019-05-01 2019-05-01 Akua MCHUGH, [facility] UTP [id number] [place] 15:00:00 15:00:00 t; Radha ASTORGA i, M.D. ans SILVIA, M.D. 2019-04-25 2019-04-25 Appointmen DOUGHERTY, UTP UTP [id number] [place] 14:30:00 14:30:00 t; Donna RICE ans AMIT, M.D. 2019-04-24 2019-04-24 Appointmen ANDRASSY, UTP UTP [id number] UT 14:30:00 14:30:00 t; DORINDA Physi Donna Delaney M.D. 2019-04-03 2019-04-03 Appointmen ANDRASSY, UTP UTP [id number] UT 13:00:00 13:00:00 t; DORINDA Physi Donna Delaney M.D. 2019-03-27 2019-03-27 Appointmen RUPESH, [facility] UTP [id number] [place] 14:45:00 14:45:00 t; Donna CANALES Ph, ans DEEPA, M.D. 2019-03-21 2019-03-21 Appointmen ROSALIO-OU UTP UTP [id number] [place] 11:15:00 11:15:00 t; W, Physic i theodore HERNANDEZ M.D. KRISTOFER, M.D. 2019-03-21 2019-03-21 Appointmen VASCULAR, UTP UTP [id number] [place] 09:30:00 09:30:00 t; [facility] Physic i VASCULAR, ans [facility] 2019-02-23 2019-02-23 Appointmen JANELL, UTP UTP [id number] [place] 13:45:00 13:45:00 t; LIVAN MACIEL P hysici CHRISTINE, M.D. ans M.D. 2019-02-14 2019-02-14 Appointmen ROSALIO-OU UTP UTP [id number] [place] 13:30:00 13:30:00 t; W, Physic i theodore HERNANDEZ M.D. KRISTOFER, M.D. 2019-01-25 2019-01-25 [facility] 7524 [facility] 05:46:00 05:46:00 2019-01-16 2019-01-16 Appointmen TJADEN, DANITZA UTP [id number] [place] 13:45:00 13:45:00 t; JHONATAN GROSS M.D. Physici BRUCE, ans M.D. 2019-01-16 2019-01-16 Appointmen VASCULAR, UTP UTP [id number] UT 09:30:00 09:30:00 t; [facility] Physic i VASCULAR, [facility] 2019-01-06 2019-01-06 Appointmen HAIRISIGER, UTP UTP [id number] [place] 15:00:00 15:00:00 t; Radha ASTORGA i, M.D. ans SILVIA, M.D. 2019-01-05 2019-01-05 Appointmen GINNY, UTP UTP [id number] UT 13:45:00 13:45:00 t; JHONATAN GROSS M.D. Physici BRUCE, ans M.D. 2019-01-03 2019-01-03 Appointmen INGRID, DANITZA UTP [id number] UT 10:20:00 10:20:00 t; REYES [facility]Z [facility]. [facility] WO[facility] 2019-01-02 2019-01-02 Outpatient [facility] [id number] [facility] 06:15:00 06:15:00 2018-12-28 2018-12-28 Appointmen GINNY, [facility] [place] UTP [id number] UT 15:00:00 15:00:00 t; JHONATAN GROSS M.D. Physici BRUCE, ans M.D. 2018-12-28 2018-12-28 Verenicemen FARHAT, [facility] [place] UTP [id number] UT 14:30:00 14:30:00 t; Donna RICE ans AMIT, M.D. 2018-12-28 2018-12-28 Outpatient [facility] [address] [facility] 14:09:00 14:09:00 2018-12-28 2018-12-28 Appointmen VASCULAR, UTP UTP [id number] [place] 08:30:00 08:30:00 t; [facility] Physic i VASCULAR, [facility] 2018-11-28 2018-11-28 Appointmen VASCULAR, UTP UTP [id number] UT 11:45:00 11:45:00 t; SURGERY Physic i VASCULAR, [facility] SURGERY 2018-11-22 2018-11-22 Appointmen VASCULAR, UTP UTP [id number] UT 13:30:00 13:30:00 t; SURGERY Physic i VASCULAR, ans SURGERY 2018-11-11 2018-11-11 Appointmen SETH, UTP UTP [id number] UT 12:00:00 12:00:00 t; ROSELYN ANN M.D. Physici TODD, M.D. [facility] 2018-10-27 2018-10-27 Appointmen ROSALIO-OU UTP UTP [id number] UT 14:00:00 14:00:00 t; W, Physic i ROSALIO-O theodore HENSON M.D. KRISTOFER, M.D. 2018-10-27 2018-10-27 Appointmen VASCULAR, [facility] [place] UTP [id number] UT 12:00:00 12:00:00 t; [facility] Physic i VASCULAR, [facility] 2018-10-17 2018-10-17 Appointmen ANDRASSY, [facility] [place] UTP [id number] UT 10:00:00 10:00:00 t; DORINDA Physi Donna Delaney M.D. 2018-10-14 2018-10-14 Appointmen NAVIN, [facility] [place] UTP [id number] UT 09:15:00 09:15:00 t; RADHA HOLDEN Phys ici SUMANA, M.D. ans M.D. 2018-08-25 2018-08-25 Appointmen JANELL, [facility] [place] UTP [id number] UT 13:00:00 13:00:00 t; LIVAN MACIEL P hysici CHRISTINE, M.D. ans M.D. 2018-08-15 2018-08-15 Appointmen ANDRASSY, [facility] [place] UTP [id number] UT 09:30:00 09:30:00 t; DORINDA Physi Donna Delaney M.D. 2018-08-09 2018-08-09 Appointmen ROSALIO-OU [facility] [place] UTP [id number] UT 11:15:00 11:15:00 t; Loida Physic i theodore HERNANDEZ M.D. KRISTOFER, M.D. 2018-07-26 2018-07-26 Appointmen JANELL, [facility] [place] UTP [id number] UT 13:00:00 13:00:00 t; LIVAN MACIEL P hysici CHRISTINE, M.D. ans M.D. 2018-07-19 2018-07-19 Appointmen SANJAYBRIAN [facility] [place] UTP [id number] UT 10:30:00 10:30:00 t; W, Physic i theodore HERNANDEZ M.D. KRISTOFER, M.D. 2018-07-15 2018-07-15 Appointmen LOWNHI, [facility] [place] UTP [id number] UT 09:45:00 09:45:00 t; RADHA HOLDEN Phys ici SUMANA, M.D. ans M.D. 2018-07-05 2018-07-05 Appointmen INGRID, [facility] [place] UTP [id number] UT 10:40:00 10:40:00 t; REYES JIMENEZ M.D. P hysici MARC, M.D. ans 2018-06-30 [facility] [place] UTP [id number] UT 14:00:00 14:00:00 t; SERVICE Physic i GENERAL, [facility] SERVICE 2018-06-28 2018-06-28 [facility] [id number] Common 16:29:00 16:29:00 t [facility] 2018-06-28 2018-06-28 Appointmen JANELL, [facility] [place] UTP [id number] UT 13:00:00 13:00:00 t; LIVAN MACIEL P hysici CHRISTINE, M.D. ans M.D. 2018-06-23 2018-06-23 [facility] [id number] Common 11:50:00 11:50:00 t [facility] [facility] 2018-06-22 2018-06-22 [id number] Common 08:44:00 08:44:00 t [facility] 2018-06-21 2018-06-21 [facility] [id number] Common 13:07:00 13:07:00 t [facility] Sp[facility] t [facility] 2018-06-20 2018-06-20 [facility] [id number] Common 10:00:00 10:00:00 t [facility] Bone [facility] Spiri t and Joint [facility] 2018-06-17 2018-06-17 Appointmen MED UTP UTP [id number] UT 10:00:00 10:00:00 t; MED PROVIDER, Phys ici PROVIDER, TCM ans TCM 2018-06-16 2018-06-16 Appointmen GENERAL, UTP UTP [id number] UT 13:00:00 13:00:00 t; SERVICE Physic i GENERAL, ans SERVICE 2018-05-17 2018-05-17 [facility], [facility] UTP [id number] UT 13:00:00 13:00:00 t; Donna Woodruff Ph, ans Jorge, M.D. 2018-05-11 2018-05-11 [facility] [place], [facility] [place] UTP [id number] UT 10:30:00 10:30:00 t; Donna RICE ans AMIT, M.D. 2018-05-03 2018-05-03 [facility] [place], [facility] [place] UTP [id number] UT 11:30:00 11:30:00 t; Donna Woodruff Ph, ans Jorge, M.D. 2018-04-26 2018-04-26 Akua PEREZ, [facility] [place] UTP [id number] UT 11:00:00 11:00:00 t; Anders TOMLINSON M.D. ans CHARLES, M.D. 2018-04-22 2018-04-22 [facility] NAVIN, [facility] [place] UTP [id number] UT 09:15:00 09:15:00 t; RADHA HOLDEN Phys ici SUMANA, M.D. ans M.D. 2018-04-13 2018-04-13 [facility] [place], [facility] [place] UTP [id number] UT 10:30:00 10:30:00 t; Donna RICE ans AMIT, M.D. 2018-03-24 2018-03-24 Akua [place], [facility] [id number] UT 17:00:00 17:00:00 t; Donna RICE ans AMIT, M.D. 2018-03-17 2018-03-17 Appointmen JOANN, [facility] [id number] UT 10:30:00 10:30:00 t; MARYBETH DAVID Phy sici SHEILA, M.D. ans M.D. 2018-03-08 2018-03-08 Appointmen Amaris, [facility] [id number] UT 10:15:00 10:15:00 t; Donna Woodruff dorinda Glez [facility] Donna Woodruff 2018-02-15 2018-02-15 Appointmen LTEY, [facility] [id number] UT 12:00:00 12:00:00 t; [facility]EL [facility]IDSON [facility] DENIS, OUTSIDE SALES REPRESENTATIVE [facility] 2018-02-08 2018-02-08 [facility] [place], [facility] [id number] UT 13:45:00 13:45:00 t; Donna Woodruff shalom Andrade M.D. 2018-01-19 2018-01-19 [facility] JOANN, [facility] [id number] UT 10:30:00 10:30:00 t; MARYBETH DAVID Phy sici SHEILA, M.D. ans M.D. 2018-01-19 2018-01-19 Appointradha VASCULAR, [facility] [id number] UT 09:00:00 09:00:00 t; [facility] 2017-12-27 2017-12-27 Appointmen JOANN, [facility] [id number] UT 09:00:00 09:00:00 t; MARYBETH DAVID Multi Phy sici SHEILA, M.D. Specialty shalom Thompson 2017-12-09 2017-12-09 Appointmen VASCULAR, [facility] [id number] UT 12:00:00 12:00:00 t; [place] Multi Physi ci VASCULAR, Specialty [facility] 2017-12-06 2017-12-06 [facility] [id number] UT 10:45:00 10:45:00 t; MARYBETH DAVID Multi Phy sici SHEILA, M.D. Specialty ans M.D. 2017-10-14 2017-10-14 [facility] [id number] UT 15:00:00 15:00:00 t; [place] L[place]ET[place] M.D. Physici KEVIN, ans M.D. 2017-07-08 2017-07-08 [facility] [id number] UT 14:45:00 14:45:00 t; [place] M.D. Physici KEVIN, ans M.D. 2017-03-04 2017-03-04 [facility] [id number] UT 14:15:00 14:15:00 t; [place] M.D. Physici KEVIN, ans M.D. 2016-12-31 2016-12-31 [facility] [id number] UT 14:30:00 14:30:00 t; [place] M.D. Physici KEVIN, ans M.D. 2016-09-15 2016-09-15 [facility] [id number] UT 14:00:00 14:00:00 t; FEDERICO CASTRO M.D. Physici ERIK, M.D. ans 2016-09-03 2016-09-03 [facility] [id number] UT 14:30:00 14:30:00 t; [place] M.D. Physici KEVIN, ans M.D. 2016-06-11 2016-06-11 [facility] CATHRYN, [facility] [id number] UT 14:15:00 14:15:00 t; [place] M.D. Physici KEVIN, ans M.D. 2016-05-07 2016-05-07 [facility] [id number] UT 14:45:00 14:45:00 t; [place] M.D. Physici KEVIN, ans M.D. 2016-02-25 2016-02-25 [id number] 11:00:00 11:00:00 06 [place] 2016-02-06 2016-02-06 Appointradha LOCKETT [facility] [id number] UT 14:45:00 14:45:00 t; [place] M.D. Physici KEVIN, ans M.D. 2016-02-04 2016-02-04 Outpatient IE IE [id number] Memoria 11:00:00 11:00:00 05 l [place] 2016-01-20 2016-01-20 Outpatient MHIE IE [id number] Memoria 08:00:00 08:00:00 04 l [place] 2015-12-31 2015-12-31 Outpatient MHIE IE [id number] Memoria 13:30:00 13:30:00 03 yenny Jameson 2015-12-17 2015-12-17 Outpatient IE IE [id number] Memoria 13:00:00 13:00:00 02 yenny Jameson 2015-10-29 2015-10-29 Outpatient IE IE [id number] Memoria 10:30:00 10:30:00 yenny Jameson 2015-10-14 2015-10-14 Outpatient IE IE [id number] Memoria 10:30:00 10:30:00 00 [place] Results Test Description Test Time Test Comments Results Result Comments Source GLUBED 2021-08-26 13:19:00 Test Item Value Reference Range Interpretation Comme nts GLUBED (test code = GLUBED) 178 MG/DL 70-105 H [id number] 12:54:00 Test Item Value Reference Range Interpretation Comments GLUBED (test code = GLUBED) 127 MG/DL 70-105 H BASIC METABOLIC [id number] 08:59:00 Test Item Value Reference Range Interpretation Comments SODIUM (test code = 142 mmol/L 136-145 N Please n ote: New NA) Reference Range Oct 2020 POTASSIUM (test code 3.5 mmol/L 3.5-5.1 N = K) CHLORIDE (test code = 98 mmol/L 98-107 N Please note: New CL) Reference Range Oct 2020 CARBON DIOXIDE (test 33 mmol/L 20-31 H Please note: New code = CO2) Reference Range Oct 2020 GLUCOSE (test code = 126 mg/dL 74-106 H Please note: New GLU) Reference Range Oct 2020 BLOOD UREA NITROGEN 20 mg/dL 9-23 N Please n ote: New (test code = BUN) Reference Range Oct 2020 GLOMERULAR FILTRATION 10 mL/min >60 L Units are RATE (test code = mL/min/1.7 3m2 The GFR) estimated glome rular filtration rate is computed usingp atient race, age (>18) , sex, and serum creat inine. If anyof the ne eded data elements a re missing the Lab oratory cannot compute an estimation of t he glomerular filt ration rate. CREATININE (test code 4.80 mg/dL 0.55-1.02 H Please note: New = CREAT) Reference Range Oct 2020 CALCIUM (test code = 9.2 mg/dL 8.7-10.4 N Please note: New CA) Reference Range Oct 2020 COVID 19 Asymptomatic IH [id number] 08:45:00 Test Item Value Reference Range Interpretation Comments COVID 19 NEGATIVE NEGATIVE Negative result s, from Asymptomatic IH AG patients with symptom (test code = onset beyondfiv e days, COVNONPUIAG) should be treat ed as presumptive and confirmationwit h a molecular assay , if necessary for patientmanageme nt, may be performed. Nega tive results do not ruleout COVID-19 and sh ould not be used as the sole basis fortreatment or patient management deci sions, includinginfect ion control decisio ns. Negative result s should beconsidered in the context of a pa tient's recent exposure s,history and the presenc e of clinical signs and symptomsconsist ent with COVID-19. CBC W/AUTO [id number] 08:37:00 Test Item Value Reference Range Interpretation Comments WHITE BLOOD CELL (test code = 9.7 x10 3/uL 4.8-10.8 N WBC) RED BLOOD CELL (test code = 3.59 x10 6/uL 4.20-5.40 L RBC) HEMOGLOBIN (test code = HGB) 10.7 g/dL 12.0-16.0 L HEMATOCRIT (test code = HCT) 33.9 % 37.0-47.0 L MEAN CELL VOLUME (test code = 94.4 fL 81.0-99.0 N MCV) MEAN CELL HGB (test code = MCH) 29.8 pg 27-31 N MEAN CELL HGB CONCENTRATION 31.6 G/DL 33-36.5 L (test code = MCHC) RED CELL DISTRIBUTION WIDTH 13.9 % 12.9-16.9 N (test code = RDW) PLATELET COUNT (test code = 177 x10 3/uL 150-440 N PLT) MEAN PLATELET VOLUME (test code 11.1 fL 8.9-12.4 N = MPV) NEUTROPHIL % (test code = NT%) 70.4 % 42.2-75.2 N LYMPHOCYTE % (test code = LY%) 16.8 % 20.5-51.1 L MONOCYTE % (test code = MO%) 6.6 % 1.7-9.3 N EOSINOPHIL % (test code = EO%) 5.0 % 0.0-7.0 N BASOPHIL % (test code = BA%) 0.8 % 0-2.5 N NEUTROPHIL # (test code = NT#) 6.85 x10 3/uL 1.80-7.70 N LYMPHOCYTE # (test code = LY#) 1.63 x10 3/uL 1.00-4.80 N MONOCYTE # (test code = MO#) 0.64 x10 3/uL 0.00-0.80 N EOSINOPHIL # (test code = EO#) 0.49 x10 3/uL 0.00-0.45 H BASOPHIL # (test code = BA#) 0.08 x10 3/uL 0.0-0.20 N COMPREHENSIVE METABOLIC [id number] 06:39:00 Test Item Value Reference Range Interpretation Comments SODIUM (test code = 139 mmol/L 136-145 N Please n ote: New NA) Reference Range Oct 2020 POTASSIUM (test code 3.5 mmol/L 3.5-5.1 N = K) CHLORIDE (test code = 102 mmol/L 98-107 N Please note: New CL) Reference Range Oct 2020 CARBON DIOXIDE (test 26 mmol/L 20-31 N Please note: New code = CO2) Reference Range Oct 2020 GLUCOSE (test code = 108 mg/dL 74-106 H Please note: New GLU) Reference Range Oct 2020 BLOOD UREA NITROGEN 25 mg/dL 9-23 H Please n ote: New (test code = BUN) Reference Range Oct 2020 GLOMERULAR FILTRATION 12 mL/min >60 L Units are RATE (test code = mL/min/1.7 3m2 The GFR) estimated glome rular filtration rate is computed usingp atient race, age (>18) , sex, and serum creat inine. If anyof the ne eded data elements a re missing the Lab oratory cannot compute an estimation of t he glomerular filt ration rate. CREATININE (test code 4.10 mg/dL 0.55-1.02 H Please note: New = CREAT) Reference Range Oct 2020 TOTAL PROTEIN (test 5.6 g/dL 5.7-8.2 L Please n ote: New code = PROT) Reference Range Oct 2020 ALBUMIN (test code = 3.8 g/dL 3.2-4.8 N Please note: New ALB) Reference Range Oct 2020 CALCIUM (test code = 8.1 mg/dL 8.7-10.4 L Please note: New CA) Reference Range Oct 2020 BILIRUBIN TOTAL (test 0.5 mg/dL 0.3-1.2 N Please note: New code = BILT) Reference Range Oct 2020 SGOT/AST (test code = 16 U/L <34 N Please note: New AST) Reference Range Oct 2020 SGPT/ALT (test code = 62 U/L 10-49 H Please note: New ALT) Reference Range Oct 2020 ALKALINE PHOSPHATASE 96 U/L 46-116 N Please note: New (test code = ALKP) Reference Range Oct 2020 CBC W/AUTO [id number] 06:35:00 Test Item Value Reference Range Interpretation Comments WHITE BLOOD CELL (test code = 11.5 x10 3/uL 4.8-10.8 H WBC) RED BLOOD CELL (test code = 3.12 x10 6/uL 4.20-5.40 L RBC) HEMOGLOBIN (test code = HGB) 9.3 g/dL 12.0-16.0 L HEMATOCRIT (test code = HCT) 29.6 % 37.0-47.0 L MEAN CELL VOLUME (test code = 94.9 fL 81.0-99.0 N MCV) MEAN CELL HGB (test code = MCH) 29.8 pg 27-31 N MEAN CELL HGB CONCENTRATION 31.4 G/DL 33-36.5 L (test code = MCHC) RED CELL DISTRIBUTION WIDTH 16.4 % 12.9-16.9 N (test code = RDW) PLATELET COUNT (test code = 210 x10 3/uL 150-440 N PLT) MEAN PLATELET VOLUME (test code 10.8 fL 8.9-12.4 N = MPV) NEUTROPHIL % (test code = NT%) 63.3 % 42.2-75.2 N LYMPHOCYTE % (test code = LY%) 19.5 % 20.5-51.1 L MONOCYTE % (test code = MO%) 9.1 % 1.7-9.3 N EOSINOPHIL % (test code = EO%) 5.0 % 0.0-7.0 N BASOPHIL % (test code = BA%) 0.7 % 0-2.5 N NEUTROPHIL # (test code = NT#) 7.27 x10 3/uL 1.80-7.70 N LYMPHOCYTE # (test code = LY#) 2.23 x10 3/uL 1.00-4.80 N MONOCYTE # (test code = MO#) 1.04 x10 3/uL 0.00-0.80 H EOSINOPHIL # (test code = EO#) 0.57 x10 3/uL 0.00-0.45 H BASOPHIL # (test code = BA#) 0.08 x10 3/uL 0.0-0.20 N BLOOD GAS [id number] 23:13:00 Test Item Value Reference Range Interpretation Comments ARTERIAL BLOOD GAS PH 7.43 7.35-7.45 N (test code = PHA) ARTERIAL BLOOD GAS PCO2 38.1 mmHg 35.0-45.0 N (test code = PCO2A) ARTERIAL BLOOD GAS PO2 109.5 mmHg 80.0-95.0 H (test code = PO2A) BICARBONATE TOTAL HCO3 24.9 mmol/L 22.0-24.0 H (test code = HCO3) BASE EXCESS (test code 0.7 mmol/L See_Comment N [Aut omated = SUSHANT) message] The system which generated this result transmitted reference range : (+/-)2.0. The reference range was not used to interpret this result as normal/abnormal . ABG O2 SATURATION (test 98.2 % 95.0-100.0 N code = SATA) ARTERIAL FIO2 (test 24.0 % code = FIO2A) ABG VENT MODE (test High Flow code = MODEA) ALLENS TEST (test code NOT APPLICAPLE = ALLENS) SODIUM (POC) (test code 133 mmol/L 135-147 L = NA/ABG) POTASSIUM (POC) (test 4.17 mmol/L 3.6-5.2 N code = K/ABG) CHLORIDE (ARTERIAL) 101 mmol/L 98-108 N (test code = CL/ABG) GLUCOSE (test code = 160 mg/dL 70-104 H GLU/ABG) IONIZED CALCIUM (test 1.07 mmol/L 1.12-1.32 L code = CAIABG) POC LACTIC ACID (test 1.05 mmol/L 0.5-2.2 N code = POCLAC) TOTAL HGB (test code = 6.4 g/dL 12.0-16.0 LL THB) CARBOXYHEMOGLOBIN (test 0.3 % 0-5.0 N code = HOHGBT) METHEMOGLOBIN (test <0.8 % 0-1.5 N code = METHGB) HHb (test code = HHB) 1.8 % TCO2 ARTERIAL (test 26.1 MMOL/L 24-30 N code = TCO2A) [id number] 23:13:00 Test Item Value Reference Range Interpretation Comments PaO2/FiO2 (test code = [id number]) 456.20 >200 BASIC METABOLIC [id number] 04:33:00 Test Item Value Reference Range Interpretation Comments SODIUM (test code = 138 mmol/L 136-145 N Please n ote: New NA) Reference Range Oct 2020 POTASSIUM (test code 3.8 mmol/L 3.5-5.1 N = K) CHLORIDE (test code = 102 mmol/L 98-107 N Please note: New CL) Reference Range Oct 2020 CARBON DIOXIDE (test 24 mmol/L 20-31 N Please note: New code = CO2) Reference Range Oct 2020 GLUCOSE (test code = 115 mg/dL 74-106 H Please note: New GLU) Reference Range Oct 2020 BLOOD UREA NITROGEN 37 mg/dL 9-23 H Please n ote: New (test code = BUN) Reference Range Oct 2020 GLOMERULAR FILTRATION 8 mL/min >60 L Units are RATE (test code = mL/min/1.7 3m2 The GFR) estimated glome rular filtration rate is computed usingp atient race, age (>18) , sex, and serum creat inine. If anyof the ne eded data elements a re missing the Lab oratory cannot compute an estimation of t he glomerular filt ration rate. CREATININE (test code 5.40 mg/dL 0.55-1.02 H Please note: New = CREAT) Reference Range Oct 2020 CALCIUM (test code = 8.3 mg/dL 8.7-10.4 L Please note: New CA) Reference Range Oct 2020 COMPREHENSIVE METABOLIC [id number] 04:33:00 Test Item Value Reference Range Interpretation Comments TOTAL PROTEIN (test 5.4 g/dL 5.7-8.2 L Please n ote: New code = PROT) Reference Range Oct 2020 ALBUMIN (test code = 3.7 g/dL 3.2-4.8 N Please note: New ALB) Reference Range Oct 2020 BILIRUBIN TOTAL (test 0.6 mg/dL 0.3-1.2 N Please note: New code = BILT) Reference Range Oct 2020 SGOT/AST (test code = 21 U/L <34 N Please note: New AST) Reference Range Oct 2020 SGPT/ALT (test code = 83 U/L 10-49 H Please note: New ALT) Reference Range Oct 2020 ALKALINE PHOSPHATASE 89 U/L 46-116 N Please note: New (test code = ALKP) Reference Range Oct 2020 CBC W/AUTO [id number] 04:19:00 Test Item Value Reference Range Interpretation Comments WHITE BLOOD CELL (test code = 13.7 x10 3/uL 4.8-10.8 H WBC) RED BLOOD CELL (test code = 3.02 x10 6/uL 4.20-5.40 L RBC) HEMOGLOBIN (test code = HGB) 9.1 g/dL 12.0-16.0 L HEMATOCRIT (test code = HCT) 28.4 % 37.0-47.0 L MEAN CELL VOLUME (test code = 94.0 fL 81.0-99.0 N MCV) MEAN CELL HGB (test code = MCH) 30.1 pg 27-31 N MEAN CELL HGB CONCENTRATION 32.0 G/DL 33-36.5 L (test code = MCHC) RED CELL DISTRIBUTION WIDTH 16.1 % 12.9-16.9 N (test code = RDW) PLATELET COUNT (test code = 203 x10 3/uL 150-440 N PLT) MEAN PLATELET VOLUME (test code 10.6 fL 8.9-12.4 N = MPV) NEUTROPHIL % (test code = NT%) 70.1 % 42.2-75.2 N LYMPHOCYTE % (test code = LY%) 16.8 % 20.5-51.1 L MONOCYTE % (test code = MO%) 7.2 % 1.7-9.3 N EOSINOPHIL % (test code = EO%) 3.9 % 0.0-7.0 N BASOPHIL % (test code = BA%) 0.5 % 0-2.5 N NEUTROPHIL # (test code = NT#) 9.57 x10 3/uL 1.80-7.70 H LYMPHOCYTE # (test code = LY#) 2.30 x10 3/uL 1.00-4.80 N MONOCYTE # (test code = MO#) 0.99 x10 3/uL 0.00-0.80 H EOSINOPHIL # (test code = EO#) 0.54 x10 3/uL 0.00-0.45 H BASOPHIL # (test code = BA#) 0.07 x10 3/uL 0.0-0.20 N LACTIC [id number] 05:17:00 Test Item Value Reference Range Interpretation Comments LACTIC ACID (test code = LACT) 0.70 mmol/L 0.5-2.0 N COMPREHENSIVE METABOLIC [id number] 05:04:00 Test Item Value Reference Range Interpretation Comments SODIUM (test code = 138 mmol/L 136-145 N Please n ote: New NA) Reference Range Oct 2020 POTASSIUM (test code 3.6 mmol/L 3.5-5.1 N = K) CHLORIDE (test code = 105 mmol/L 98-107 N Please note: New CL) Reference Range Oct 2020 CARBON DIOXIDE (test 26 mmol/L 20-31 N Please note: New code = CO2) Reference Range Oct 2020 GLUCOSE (test code = 96 mg/dL 74-106 N Please note: New GLU) Reference Range Oct 2020 BLOOD UREA NITROGEN 22 mg/dL 9-23 N Please n ote: New (test code = BUN) Reference Range Oct 2020 GLOMERULAR FILTRATION 12 mL/min >60 L Units are RATE (test code = mL/min/1.7 3m2 The GFR) estimated glome rular filtration rate is computed usingp atient race, age (>18) , sex, and serum creat inine. If anyof the ne eded data elements a re missing the Lab oratory cannot compute an estimation of t he glomerular filt ration rate. CREATININE (test code 3.90 mg/dL 0.55-1.02 H Please note: New = CREAT) Reference Range Oct 2020 TOTAL PROTEIN (test 5.8 g/dL 5.7-8.2 N Please n ote: New code = PROT) Reference Range Oct 2020 ALBUMIN (test code = 3.9 g/dL 3.2-4.8 N Please note: New ALB) Reference Range Oct 2020 CALCIUM (test code = 8.1 mg/dL 8.7-10.4 L Please note: New CA) Reference Range Oct 2020 BILIRUBIN TOTAL (test 0.8 mg/dL 0.3-1.2 N Please note: New code = BILT) Reference Range Oct 2020 SGOT/AST (test code = 40 U/L <34 H Please note: New AST) Reference Range Oct 2020 SGPT/ALT (test code = 126 U/L 10-49 H Please note: New ALT) Reference Range Oct 2020 ALKALINE PHOSPHATASE 97 U/L 46-116 N Please note: New (test code = ALKP) Reference Range Oct 2020 CBC W/AUTO [id number] 04:16:00 Test Item Value Reference Range Interpretation Comments WHITE BLOOD CELL (test code = 13.9 x10 3/uL 4.8-10.8 H WBC) RED BLOOD CELL (test code = 3.24 x10 6/uL 4.20-5.40 L RBC) HEMOGLOBIN (test code = HGB) 9.8 g/dL 12.0-16.0 L HEMATOCRIT (test code = HCT) 30.3 % 37.0-47.0 L MEAN CELL VOLUME (test code = 93.5 fL 81.0-99.0 N MCV) MEAN CELL HGB (test code = 30.2 pg 27-31 N MCH) MEAN CELL HGB CONCENTRATION 32.3 G/DL 33-36.5 L (test code = MCHC) RED CELL DISTRIBUTION WIDTH 15.9 % 12.9-16.9 N (test code = RDW) PLATELET COUNT (test code = 180 x10 3/uL 150-440 N PLT) MEAN PLATELET VOLUME (test 10.6 fL 8.9-12.4 N code = MPV) NEUTROPHIL % (test code = NT%) 73.3 % 42.2-75.2 N LYMPHOCYTE % (test code = LY%) 14.5 % 20.5-51.1 L MONOCYTE % (test code = MO%) 7.0 % 1.7-9.3 N EOSINOPHIL % (test code = EO%) 3.4 % 0.0-7.0 N BASOPHIL % (test code = BA%) 0.3 % 0-2.5 N NEUTROPHIL # (test code = NT#) 10.21 x10 3/uL 1.80-7.70 H LYMPHOCYTE # (test code = LY#) 2.02 x10 3/uL 1.00-4.80 N MONOCYTE # (test code = MO#) 0.97 x10 3/uL 0.00-0.80 H EOSINOPHIL # (test code = EO#) 0.47 x10 3/uL 0.00-0.45 H BASOPHIL # (test code = BA#) 0.04 x10 3/uL 0.0-0.20 N BASIC METABOLIC [id number] 12:15:00 Test Item Value Reference Range Interpretation Comments SODIUM (test code = 136 mmol/L 136-145 N Please n ote: New NA) Reference Range Oct 2020 POTASSIUM (test code 4.2 mmol/L 3.5-5.1 N = K) CHLORIDE (test code = 102 mmol/L 98-107 N Please note: New CL) Reference Range Oct 2020 CARBON DIOXIDE (test 23 mmol/L 20-31 N Please note: New code = CO2) Reference Range Oct 2020 GLUCOSE (test code = 155 mg/dL 74-106 H Please note: New GLU) Reference Range Oct 2020 BLOOD UREA NITROGEN 50 mg/dL 9-23 H Please n ote: New (test code = BUN) Reference Range Oct 2020 GLOMERULAR FILTRATION 7 mL/min >60 L Units are RATE (test code = mL/min/1.7 3m2 The GFR) estimated glome rular filtration rate is computed usingp atient race, age (>18) , sex, and serum creat inine. If anyof the ne eded data elements a re missing the Lab oratory cannot compute an estimation of t he glomerular filt ration rate. CREATININE (test code 6.70 mg/dL 0.55-1.02 H Please note: New = CREAT) Reference Range Oct 2020 CALCIUM (test code = 8.2 mg/dL 8.7-10.4 L Please note: New CA) Reference Range Oct 2020 CBC W/AUTO [id number] 11:54:00 Test Item Value Reference Range Interpretation Comments WHITE BLOOD CELL (test code = 16.6 x10 3/uL 4.8-10.8 H WBC) RED BLOOD CELL (test code = 3.33 x10 6/uL 4.20-5.40 L RBC) HEMOGLOBIN (test code = HGB) 9.8 g/dL 12.0-16.0 L HEMATOCRIT (test code = HCT) 30.8 % 37.0-47.0 L MEAN CELL VOLUME (test code = 92.5 fL 81.0-99.0 N MCV) MEAN CELL HGB (test code = 29.4 pg 27-31 N MCH) MEAN CELL HGB CONCENTRATION 31.8 G/DL 33-36.5 L (test code = MCHC) RED CELL DISTRIBUTION WIDTH 16.1 % 12.9-16.9 N (test code = RDW) PLATELET COUNT (test code = 213 x10 3/uL 150-440 N PLT) MEAN PLATELET VOLUME (test 10.4 fL 8.9-12.4 N code = MPV) NEUTROPHIL % (test code = NT%) 84.9 % 42.2-75.2 H LYMPHOCYTE % (test code = LY%) 6.6 % 20.5-51.1 L MONOCYTE % (test code = MO%) 6.3 % 1.7-9.3 N EOSINOPHIL % (test code = EO%) 0.5 % 0.0-7.0 N BASOPHIL % (test code = BA%) 0.2 % 0-2.5 N NEUTROPHIL # (test code = NT#) 14.13 x10 3/uL 1.80-7.70 H LYMPHOCYTE # (test code = LY#) 1.09 x10 3/uL 1.00-4.80 N MONOCYTE # (test code = MO#) 1.05 x10 3/uL 0.00-0.80 H EOSINOPHIL # (test code = EO#) 0.08 x10 3/uL 0.00-0.45 N BASOPHIL # (test code = BA#) 0.03 x10 3/uL 0.0-0.20 N - XR CHEST 1 [id number] 11:21:00 [facility] : 1955 Sex: FPatient Name: DESTINEY PRITCHARD Unit No: [id number] EXAMS: CPT CODE: [id number] XR CHEST 1 V 65660 EXAM: Chest one view. Location: A1 HISTORY: congestion COMPARISON: 07/14/2021 FINDINGS: Dual lumen right internal jugular central venous catheter is identified with tip at the cavoatrialjunction. Cardiac silhouette is mildly enlarged. There is prominence of central pulmonary vessels and interstitial markings, improved since prior study. Airspace opacities are present at bilateral lung bases. There are no pleural effusions or pneumothorax. There is diffuseosteopenia. Spondylosis is present throughout the thoracic spine. IMPRESSION: Diffuse interstitial and basilar airspace airspace opacities are slightly improved since prior study, likely represent underlying edema. at 1121 Reported and signed by: TASHIA RAMIREZ M.D. CC: Justice Wiggins MD; Simon Zarate MD; Dorinda Mayfield MD Technologist: Adolfo Alves Time: DAP (Gy m2): Air Kerma (mGy): Trscr Dt/Tm: 07/16/2021 (112) by:[email or web address] Printed Date/Time: 07/16/2021 (1124) Name: DESTINEY PRITCHARD [facility] Phys: Dorinda Robles MD [address] : 1955 Age: 66 Sex: [place] [id number] Loc: [id number] 1 Exam Date: 07/16/2021 Status: ADM IN PH: FAX: PAGE 1 Signed [id number] 08:41:00 Test Item Value Reference Range Interpretation Comments GLUBED (test code = GLUBED) 156 MG/DL 70-105 H - XR CHEST 1 [id number] 08:06:00 [facility] : 1955 Sex: FPatient Name: DESTINEY PRITCHARD Unit No: [id number] EXAMS: CPT CODE: [id number] XR CHEST 1 V 08523 CHEST, SINGLE VIEW DICTATION LOCATION A1 HISTORY: Infiltrates. A single view of the chest at 4:05 AM was compared to a prior exam from July 13, 2021. FINDINGS: Patchy bibasilar infiltrates are stable along with cardiomegaly and central pulmonary vascular congestion. Right dialysis catheter is unchanged. No new findings are seen. IMPRESSION: No change from the prior exam. at 0806 Reported and signed by: Junior Hubbard Jr, MD CC: Justice Wiggins MD; Simon Zarate MD Technologist: [email or web address] Alves Time: DAP (Gy m2): Air Kerma (mGy): Trscr Dt/Tm: 07/14/2021 (0806) by:Cookie Printed Date/Time: 07/14/2021(809) Name: DESTINEY PRITCHARDSURI [facility] Phys: Simon Pretty MD [address] : 1955 Age: 66 Sex: [place] [address] Loc: P.[id number] 1 Exam Date: 07/14/2021 Status: ADM IN PH: FAX: PAGE 1 Signed ReportBASIC METABOLIC [id number] 04:46:00 Test Item Value Reference Range Interpretation Comments SODIUM (test code = 130 mmol/L 136-145 L Please n ote: New NA) Reference Range Oct 2020 POTASSIUM (test code 4.5 mmol/L 3.5-5.1 N = K) CHLORIDE (test code = 94 mmol/L 98-107 L Please note: New CL) Reference Range Oct 2020 CARBON DIOXIDE (test 25 mmol/L 20-31 N Please note: New code = CO2) Reference Range Oct 2020 GLUCOSE (test code = 150 mg/dL 74-106 H Please note: New GLU) Reference Range Oct 2020 BLOOD UREA NITROGEN 48 mg/dL 9-23 H Please n ote: New (test code = BUN) Reference Range Oct 2020 GLOMERULAR FILTRATION 6 mL/min >60 L Units are RATE (test code = mL/min/1.7 3m2 The GFR) estimated glome rular filtration rate is computed usingp atient race, age (>18) , sex, and serum creat inine. If anyof the ne eded data elements a re missing the Lab oratory cannot compute an estimation of t he glomerular filt ration rate. CREATININE (test code 6.80 mg/dL 0.55-1.02 H Please note: New = CREAT) Reference Range Oct 2020 CALCIUM (test code = 9.6 mg/dL 8.7-10.4 N Please note: New CA) Reference Range Oct 2020 COMPREHENSIVE METABOLIC [id number] 04:46:00 Test Item Value Reference Range Interpretation Comments TOTAL PROTEIN (test 6.1 g/dL 5.7-8.2 N Please n ote: New code = PROT) Reference Range Oct 2020 ALBUMIN (test code = 4.1 g/dL 3.2-4.8 N Please note: New ALB) Reference Range Oct 2020 BILIRUBIN TOTAL (test 0.6 mg/dL 0.3-1.2 N Please note: New code = BILT) Reference Range Oct 2020 SGOT/AST (test code = 25 U/L <34 N Please note: New AST) Reference Range Oct 2020 SGPT/ALT (test code = 32 U/L 10-49 N Please note: New ALT) Reference Range Oct 2020 ALKALINE PHOSPHATASE 70 U/L 46-116 N Please note: New (test code = ALKP) Reference Range Oct 2020 [id number] 04:46:00 Test Item Value Reference Range Interpretation Comments PHOSPHOROUS (test code 6.5 mg/dL 2.4-5.1 H Pleas e note: New = PHOS) Reference Range Oct 2020 [id number] 04:46:00 Test Item Value Reference Range Interpretation Comments MAGNESIUM (test code = 1.9 mg/dL 1.6-2.6 N Pleas e note: New MAG) Reference Range Oct 2020 CBC W/AUTO [id number] 04:19:00 Test Item Value Reference Range Interpretation Comments WHITE BLOOD CELL (test code = 14.0 x10 3/uL 4.8-10.8 H WBC) RED BLOOD CELL (test code = 2.86 x10 6/uL 4.20-5.40 L RBC) HEMOGLOBIN (test code = HGB) 8.4 g/dL 12.0-16.0 L HEMATOCRIT (test code = HCT) 25.9 % 37.0-47.0 L MEAN CELL VOLUME (test code = 90.6 fL 81.0-99.0 N MCV) MEAN CELL HGB (test code = 29.4 pg 27-31 N MCH) MEAN CELL HGB CONCENTRATION 32.4 G/DL 33-36.5 L (test code = MCHC) RED CELL DISTRIBUTION WIDTH 15.8 % 12.9-16.9 N (test code = RDW) PLATELET COUNT (test code = 180 x10 3/uL 150-440 N PLT) MEAN PLATELET VOLUME (test 11.1 fL 8.9-12.4 N code = MPV) NEUTROPHIL % (test code = NT%) 87.7 % 42.2-75.2 H LYMPHOCYTE % (test code = LY%) 7.9 % 20.5-51.1 L MONOCYTE % (test code = MO%) 3.5 % 1.7-9.3 N EOSINOPHIL % (test code = EO%) 0.1 % 0.0-7.0 N BASOPHIL % (test code = BA%) 0.1 % 0-2.5 N NEUTROPHIL # (test code = NT#) 12.32 x10 3/uL 1.80-7.70 H LYMPHOCYTE # (test code = LY#) 1.11 x10 3/uL 1.00-4.80 N MONOCYTE # (test code = MO#) 0.49 x10 3/uL 0.00-0.80 N EOSINOPHIL # (test code = EO#) 0.01 x10 3/uL 0.00-0.45 N BASOPHIL # (test code = BA#) 0.01 x10 3/uL 0.0-0.20 N [id number] 01:37:00 Test Item Value Reference Range Interpretation Comments GLUBED (test code = GLUBED) 166 MG/DL 70-105 H [id number] 20:07:00 Test Item Value Reference Range Interpretation Comments GLUBED (test code = GLUBED) 174 MG/DL 70-105 H [id number] 11:36:00 Test Item Value Reference Range Interpretation Comments GLUBED (test code = GLUBED) 181 MG/DL 70-105 H [id number] 07:45:00 Test Item Value Reference Range Interpretation Comments GLUBED (test code = GLUBED) 192 MG/DL 70-105 H - XR CHEST 1 [id number] 07:04:00 [facility] : 1955 Sex: FPatient Name: DESTINEY PRITCHARD Unit No: [id number] EXAMS: CPT CODE: [id number] XR CHEST 1 V 37463 Chest one view portable 07/13/2021 CLINICAL INDICATION: Hypotension COMPARISON: The previous day LOCATION: W1 IMPRESSION: Cardiomediastinal contours are stable. There is been developmentof mild pulmonary edema. A tunneled right hemodialysis catheter is present. at 0704 Reported and signed by: AMANDA CRUZ M.D. CC: Justice Wiggins MD; Simon Zarate MD Technologist: Jazmine Alves Time: DAP (Gy m2): Air Kerma (mGy): Trscr Dt/Tm: 07/13/2021 (703) by:[email or web address] Printed Date/Time: 07/13/2021 (706) Name: DESTINEY PRITCHARD [facility] Phys: Simon Pretty MD [address] : 1955 Age: 66 Sex: [place] [address] Loc: [id number] 1 Exam Date: 07/13/2021 Status: ADM IN PH: FAX: PAGE 1 Signed ReportBASIC METABOLIC PANEL 2021-07-13 04:25:00 Test Item Value Reference Range Interpretation Comments SODIUM (test code = 133 mmol/L 136-145 L Please n ote: New NA) Reference Range Oct 2020 POTASSIUM (test code 4.4 mmol/L 3.5-5.1 N = K) CHLORIDE (test code = 97 mmol/L 98-107 L Please note: New CL) Reference Range Oct 2020 CARBON DIOXIDE (test 26 mmol/L 20-31 N Please note: New code = CO2) Reference Range Oct 2020 GLUCOSE (test code = 173 mg/dL 74-106 H Please note: New GLU) Reference Range Oct 2020 BLOOD UREA NITROGEN 32 mg/dL 9-23 H Please n ote: New (test code = BUN) Reference Range Oct 2020 GLOMERULAR FILTRATION 8 mL/min >60 L Units are RATE (test code = mL/min/1.7 3m2 The GFR) estimated glome rular filtration rate is computed usingp atient race, age (>18) , sex, and serum creat inine. If anyof the ne eded data elements a re missing the Lab oratory cannot compute an estimation of t he glomerular filt ration rate. CREATININE (test code 5.80 mg/dL 0.55-1.02 H Please note: New = CREAT) Reference Range Oct 2020 CALCIUM (test code = 9.1 mg/dL 8.7-10.4 N Please note: New CA) Reference Range Oct 2020 COMPREHENSIVE METABOLIC [id number] 04:25:00 Test Item Value Reference Range Interpretation Comments TOTAL PROTEIN (test 6.2 g/dL 5.7-8.2 N Please n ote: New code = PROT) Reference Range Oct 2020 ALBUMIN (test code = 4.2 g/dL 3.2-4.8 N Please note: New ALB) Reference Range Oct 2020 BILIRUBIN TOTAL (test 0.8 mg/dL 0.3-1.2 N Please note: New code = BILT) Reference Range Oct 2020 SGOT/AST (test code = 12 U/L <34 N Please note: New AST) Reference Range Oct 2020 SGPT/ALT (test code = 18 U/L 10-49 N Please note: New ALT) Reference Range Oct 2020 ALKALINE PHOSPHATASE 55 U/L 46-116 N Please note: New (test code = ALKP) Reference Range Oct 2020 [id number] 04:25:00 Test Item Value Reference Range Interpretation Comments PHOSPHOROUS (test code 5.4 mg/dL 2.4-5.1 H Pleas e note: New = PHOS) Reference Range Oct 2020 [id number] 04:25:00 Test Item Value Reference Range Interpretation Comments MAGNESIUM (test code = 1.8 mg/dL 1.6-2.6 N Pleas e note: New MAG) Reference Range Oct 2020 CBC W/AUTO [id number] 04:04:00 Test Item Value Reference Range Interpretation Comments WHITE BLOOD CELL (test code = 11.8 x10 3/uL 4.8-10.8 H WBC) RED BLOOD CELL (test code = 2.82 x10 6/uL 4.20-5.40 L RBC) HEMOGLOBIN (test code = HGB) 8.2 g/dL 12.0-16.0 L HEMATOCRIT (test code = HCT) 25.4 % 37.0-47.0 L MEAN CELL VOLUME (test code = 90.1 fL 81.0-99.0 N MCV) MEAN CELL HGB (test code = 29.1 pg 27-31 N MCH) MEAN CELL HGB CONCENTRATION 32.3 G/DL 33-36.5 L (test code = MCHC) RED CELL DISTRIBUTION WIDTH 16.1 % 12.9-16.9 N (test code = RDW) PLATELET COUNT (test code = 165 x10 3/uL 150-440 N PLT) MEAN PLATELET VOLUME (test 11.4 fL 8.9-12.4 N code = MPV) NEUTROPHIL % (test code = NT%) 86.1 % 42.2-75.2 H LYMPHOCYTE % (test code = LY%) 7.9 % 20.5-51.1 L MONOCYTE % (test code = MO%) 4.7 % 1.7-9.3 N EOSINOPHIL % (test code = EO%) 0.3 % 0.0-7.0 N BASOPHIL % (test code = BA%) 0.2 % 0-2.5 N NEUTROPHIL # (test code = NT#) 10.13 x10 3/uL 1.80-7.70 H LYMPHOCYTE # (test code = LY#) 0.93 x10 3/uL 1.00-4.80 L MONOCYTE # (test code = MO#) 0.55 x10 3/uL 0.00-0.80 N EOSINOPHIL # (test code = EO#) 0.04 x10 3/uL 0.00-0.45 N BASOPHIL # (test code = BA#) 0.02 x10 3/uL 0.0-0.20 N [id number] 03:32:00 Test Item Value Reference Range Interpretation Comments GLUBED (test code = GLUBED) 194 MG/DL 70-105 H BASIC METABOLIC [id number] 15:08:00 Test Item Value Reference Range Interpretation Comments SODIUM (test code = 134 mmol/L 136-145 L Please n ote: New NA) Reference Range Oct 2020 POTASSIUM (test code 4.3 mmol/L 3.5-5.1 N = K) CHLORIDE (test code = 100 mmol/L 98-107 N Please note: New CL) Reference Range Oct 2020 CARBON DIOXIDE (test 25 mmol/L 20-31 N Please note: New code = CO2) Reference Range Oct 2020 GLUCOSE (test code = 178 mg/dL 74-106 H Please note: New GLU) Reference Range Oct 2020 BLOOD UREA NITROGEN 24 mg/dL 9-23 H Please n ote: New (test code = BUN) Reference Range Oct 2020 GLOMERULAR FILTRATION 9 mL/min >60 L Units are RATE (test code = mL/min/1.7 3m2 The GFR) estimated glome rular filtration rate is computed usingp atient race, age (>18) , sex, and serum creat inine. If anyof the ne eded data elements a re missing the Lab oratory cannot compute an estimation of t he glomerular filt ration rate. CREATININE (test code 4.90 mg/dL 0.55-1.02 H Please note: New = CREAT) Reference Range Oct 2020 CALCIUM (test code = 8.8 mg/dL 8.7-10.4 N Please note: New CA) Reference Range Oct 2020 [id number] 15:08:00 Test Item Value Reference Range Interpretation Comments PHOSPHOROUS (test code 5.0 mg/dL 2.4-5.1 N Pleas e note: New = PHOS) Reference Range Oct 2020 [id number] 15:08:00 Test Item Value Reference Range Interpretation Comments MAGNESIUM (test code = 1.5 mg/dL 1.6-2.6 L Pleas e note: New MAG) Reference Range Oct 2020 CBC W/AUTO [id number] 14:13:00 Test Item Value Reference Range Interpretation Comments WHITE BLOOD CELL (test code = 11.3 x10 3/uL 4.8-10.8 H WBC) RED BLOOD CELL (test code = 2.80 x10 6/uL 4.20-5.40 L RBC) HEMOGLOBIN (test code = HGB) 8.1 g/dL 12.0-16.0 L HEMATOCRIT (test code = HCT) 25.6 % 37.0-47.0 L MEAN CELL VOLUME (test code = 91.4 fL 81.0-99.0 MCV) MEAN CELL HGB (test code = MCH) 28.9 pg 27-31 N MEAN CELL HGB CONCENTRATION 31.6 G/DL 33-36.5 L (test code = MCHC) RED CELL DISTRIBUTION WIDTH 15.6 % 12.9-16.9 N (test code = RDW) PLATELET COUNT (test code = 148 x10 3/uL 150-440 L PLT) MEAN PLATELET VOLUME (test code 11.3 fL 8.9-12.4 N = MPV) NEUTROPHIL % (test code = NT%) 78.5 % 42.2-75.2 H LYMPHOCYTE % (test code = LY%) 9.0 % 20.5-51.1 L MONOCYTE % (test code = MO%) 6.4 % 1.7-9.3 N EOSINOPHIL % (test code = EO%) 5.0 % 0.0-7.0 N BASOPHIL % (test code = BA%) 0.4 % 0-2.5 N NEUTROPHIL # (test code = NT#) 8.86 x10 3/uL 1.80-7.70 H LYMPHOCYTE # (test code = LY#) 1.02 x10 3/uL 1.00-4.80 N MONOCYTE # (test code = MO#) 0.72 x10 3/uL 0.00-0.80 N EOSINOPHIL # (test code = EO#) 0.57 x10 3/uL 0.00-0.45 H BASOPHIL # (test code = BA#) 0.04 x10 3/uL 0.0-0.20 N BLOOD GAS [id number] 08:59:00 Test Item Value Reference Range Interpretation Comments ARTERIAL BLOOD GAS PH 7.38 7.35-7.45 N (test code = PHA) ARTERIAL BLOOD GAS PCO2 36.8 mmHg 35.0-45.0 N (test code = PCO2A) ARTERIAL BLOOD GAS PO2 215.1 mmHg 80.0-95.0 H (test code = PO2A) BICARBONATE TOTAL HCO3 21.1 mmol/L 22.0-24.0 L (test code = HCO3) BASE EXCESS (test code -3.6 mmol/L See_Comment L [Aut omated = SUSHANT) message] The system which generated this result transmitted reference range : (+/-)2.0. The reference range was not used to interpret this result as normal/abnormal . ABG O2 SATURATION (test 99.3 % 95.0-100.0 N code = SATA) ARTERIAL FIO2 (test 32.0 % code = FIO2A) ABG VENT MODE (test Ventilator code = MODEA) ALLENS TEST (test code NOT APPLICAPLE = ALLENS) SODIUM (POC) (test code 134 mmol/L 135-147 L = NA/ABG) POTASSIUM (POC) (test 4.28 mmol/L 3.6-5.2 N code = K/ABG) CHLORIDE (ARTERIAL) 102 mmol/L 98-108 N (test code = CL/ABG) GLUCOSE (test code = 170 mg/dL 70-104 H GLU/ABG) IONIZED CALCIUM (test 1.08 mmol/L 1.12-1.32 L code = CAIABG) POC LACTIC ACID (test 0.89 mmol/L 0.5-2.2 N code = POCLAC) TOTAL HGB (test code = 9.3 g/dL 12.0-16.0 L THB) OXYHEMOGLOBIN (test 98.9 % 92.0-98.0 H code = OOHGBT) CARBOXYHEMOGLOBIN (test 0.3 % 0-5.0 N code = HOHGBT) METHEMOGLOBIN (test <0.8 % 0-1.5 N code = METHGB) HHb (test code = HHB) 0.7 % TCO2 ARTERIAL (test 22.3 MMOL/L 24-30 L code = TCO2A) PaO2/[id number] 08:59:00 Test Item Value Reference Range Interpretation Comments PaO2/FiO2 (test code = OOG9XNJ1) 672.10 >200 - XR CHEST 1 [id number] 07:31:00 [facility] : 1955 Sex: FPatient Name: DESTINEY PRITCHARD Unit No: [id number] EXAMS: CPT CODE: [id number] XR CHEST 1 V 50341 Chest one view AP 07/12/2021 7:30 AM CLINICAL INDICATION: Pacemaker COMPARISON: 07/10/2021 LOCATION: W1 IMPRESSION: A tunneled right hemodialysis catheter is present. Cardiomediastinal contours are stable. The central pulmonary vasculature is not engorged. The lungs are well aerated. at 0731 Reported and signed by: AMANDA CRUZ M.D. CC: Justice Wiggins MD; Simon Zarate MD Technologist: Venice Olivares Fluoro Time: DAP (Gy m2): Air Kerma (mGy): Trscr Dt/Tm: 07/12/2021 (0731) by:[email or web address] Printed Date/Time: 07/12/2021 (0734) Name: DESTINEY PRITCHARD [facility] Phys: Simon Pretty MD [address] : 1955 Age: 66 Sex: F [place] [address] Loc: P.[id number] 1 Exam Date: 07/12/2021 Status: ADM IN PH: FAX: PAGE 1 Signed ReportCBC W/AUTO [id number] 06:47:00 Test Item Value Reference Range Interpretation Comments WHITE BLOOD CELL (test 11.6 x10 3/uL 4.8-10.8 H code = WBC) RED BLOOD CELL (test 2.14 x10 6/uL 4.20-5.40 L code = RBC) HEMOGLOBIN (test code 6.4 g/dL 12.0-16.0 LL Critic al Value = HGB) reported Noam t Name:EWELINA L ast Name:PRADIPSOPHIAERICA LACY S READ BACK AND VERIFIEDby P.LABOtiliaCHEN, on 07/12/21, @ 064 7. HEMATOCRIT (test code 20.5 % 37.0-47.0 L = HCT) MEAN CELL VOLUME (test 95.8 fL 81.0-99.0 N code = MCV) MEAN CELL HGB (test 29.9 pg 27-31 N code = MCH) MEAN CELL HGB 31.2 G/DL 33-36.5 L CONCENTRATION (test code = MCHC) RED CELL DISTRIBUTION 15.0 % 12.9-16.9 N WIDTH (test code = RDW) PLATELET COUNT (test 170 x10 3/uL 150-440 N code = PLT) MEAN PLATELET VOLUME 12.1 fL 8.9-12.4 N (test code = MPV) NEUTROPHIL % (test 78.4 % 42.2-75.2 H code = NT%) LYMPHOCYTE % (test 11.3 % 20.5-51.1 L code = LY%) MONOCYTE % (test code 7.3 % 1.7-9.3 N = MO%) EOSINOPHIL % (test 2.0 % 0.0-7.0 N code = EO%) BASOPHIL % (test code 0.3 % 0-2.5 N = BA%) NEUTROPHIL # (test 9.12 x10 3/uL 1.80-7.70 H code = NT#) LYMPHOCYTE # (test 1.31 x10 3/uL 1.00-4.80 N code = LY#) MONOCYTE # (test code 0.85 x10 3/uL 0.00-0.80 H = MO#) EOSINOPHIL # (test 0.23 x10 3/uL 0.00-0.45 N code = EO#) BASOPHIL # (test code 0.03 x10 3/uL 0.0-0.20 N = BA#) BASIC METABOLIC [id number] 06:06:00 Test Item Value Reference Range Interpretation Comments SODIUM (test code = 138 mmol/L 136-145 N Please n ote: New NA) Reference Range Oct 2020 POTASSIUM (test code 4.2 mmol/L 3.5-5.1 N = K) CHLORIDE (test code = 102 mmol/L 98-107 N Please note: New CL) Reference Range Oct 2020 CARBON DIOXIDE (test 25 mmol/L 20-31 N Please note: New code = CO2) Reference Range Oct 2020 GLUCOSE (test code = 156 mg/dL 74-106 H Please note: New GLU) Reference Range Oct 2020 BLOOD UREA NITROGEN 20 mg/dL 9-23 N Please n ote: New (test code = BUN) Reference Range Oct 2020 GLOMERULAR FILTRATION 11 mL/min >60 L Units are RATE (test code = mL/min/1.7 3m2 The GFR) estimated glome rular filtration rate is computed usingp atient race, age (>18) , sex, and serum creat inine. If anyof the ne eded data elements a re missing the Lab oratory cannot compute an estimation of t he glomerular filt ration rate. CREATININE (test code 4.40 mg/dL 0.55-1.02 H Please note: New = CREAT) Reference Range Oct 2020 CALCIUM (test code = 8.4 mg/dL 8.7-10.4 L Please note: New CA) Reference Range Oct 2020 COMPREHENSIVE METABOLIC [id number] 06:06:00 Test Item Value Reference Range Interpretation Comments TOTAL PROTEIN (test 6.1 g/dL 5.7-8.2 N Please n ote: New code = PROT) Reference Range Oct 2020 ALBUMIN (test code = 4.3 g/dL 3.2-4.8 N Please note: New ALB) Reference Range Oct 2020 BILIRUBIN TOTAL (test 0.8 mg/dL 0.3-1.2 N Please note: New code = BILT) Reference Range Oct 2020 SGOT/AST (test code = 9 U/L <34 N Please note: New AST) Reference Range Oct 2020 SGPT/ALT (test code = 13 U/L 10-49 N Please note: New ALT) Reference Range Oct 2020 ALKALINE PHOSPHATASE 50 U/L 46-116 N Please note: New (test code = ALKP) Reference Range Oct 2020 [id number] 06:06:00 Test Item Value Reference Range Interpretation Comments PHOSPHOROUS (test code 4.7 mg/dL 2.4-5.1 Pleas e note: New = PHOS) Reference Range Oct 2020 [id number] 06:06:00 Test Item Value Reference Range Interpretation Comments MAGNESIUM (test code = 1.4 mg/dL 1.6-2.6 L Pleas e note: New MAG) Reference Range Oct 2020 T3 [id number] 01:48:00 Test Item Value Reference Range Interpretation Comments T3 FREE (test Test not performed 3.0-4.7 L Previous ly reported code = T3F) pg/mL result: 1.66 pg/mLEdited by: P.LABRHONDA on 07/12/21:145 T4 [id number] 01:48:00 Test Item Value Reference Range Interpretation Comments T4 FREE (test Test not performed 0.89-1.76 N Previous ly reported code = T4F) ng/dL result: 1.69 ng/dLEdited by: P.LABRHONDA on 07/12/21:147 THYROID STIMULATING [id number] 01:48:00 Test Item Value Reference Range Interpretation Comments THYROID STIMULATING Test not 0.55-4.78 H Previous ly HORMONE (test code performed mIU/mL repor barbara result: = TSH) 5.68 mIU/mLEdit ed by: P.LABRHONDA o n 07/12/21:147 [id number] 01:48:00 Test Item Value Reference Range Interpretation Comments CORTISOL (test Test not performed Previou sly reported code = CORTR) mcg/dL result: 6.05 mcg/dLEdited by : P.LABRHONDA on 07/12/21:147 T3 [id number] 01:46:00 Test Item Value Reference Range Interpretation Comments T3 FREE (test code 1.66 pg/mL 3.0-4.7 L Please no te: New = T3F) Reference Range Oct 2020 T4 [id number] 01:46:00 Test Item Value Reference Range Interpretation Comments T4 FREE (test code 1.69 ng/dL 0.89-1.76 N Please no te: New = T4F) Reference Range Oct 2020 THYROID STIMULATING [id number] 01:46:00 Test Item Value Reference Range Interpretation Comments THYROID STIMULATING 5.68 mIU/mL 0.55-4.78 H Please n ote: New HORMONE (test code = Referen ce Range Oct TSH) 2020 [id number] 01:46:00 Test Item Value Reference Range Interpretation Comments CORTISOL (test code 6.05 mcg/dL ~~~~~~~~ ~~~~~~~~~~~~~~ = CORTR) ~~~~~~~~~~~~~~~ ~~~~~~R EFERENCE RANGE NOT ESTABLISHED WHE N NOT DRAWN CORTIS OL AM OR CORTISOL PM.~~~~~~~~~~~~ ~~~~~~~ ~~~~~~~~~~~~~~~ ~~~~~~~ ~~ Covid 19 InHouse [id number] 11:17:00 Test Item Value Reference Range Interpretation Comments Covid 19 Negative Negative A negative resu lt does not InHouse NTX preclude the SA RS-COV-2 (test code = viralinfection and should not be [id number]) used as the so le basis forpatient stephani gement decisions. Negative result s must becombined with clinical o bservations, patient history , andepidemiologi fabián information. Viral levels in clinicalsamples below the detec tion limit of the assay could jesus d tonegative results. This t est was performed using the [employer] SmartTM COVID-19 PCRassay. This test was developed and i ts performancechar acteristics were determined by Justyna young [facility]. Thi s test has notbeen FDA maddison ared or approved. This test is au thorized by theFDA under Em ergency Use Authorization(E UA). The EUA willremain in e ffect unless it is terminated o r revoked by FDA . Testing robert eters have not been validated for screeningasympt omatic patients. This test was v alidated according to th e FDA's guidancedocumen t "Policy for Diagnostics rosey ting in LaboratoriesCer tified to Perform High Complexity Testing under CLIA". Spec Comments: NSpec Comments: NFirst test? NoEmployed in Healthcare? NoSymptomatic as defined by CDC? NoHospitalized due to COVID? NoIn ICU due to COVID? NoResident in a congregate care setting? No? NoAge at collection: YPROTHROMBIN [id number] 08:23:00 Test Item Value Reference Range Interpretation Comments PROTHROMBIN TIME 14.2 SECONDS 10.3-12.9 H PATIENT (test code = PTP) INTERNATIONAL 1.24 INR UNIT 0.9-1.11 H The INR is [...] t valves; 2.5-3.5recurren t systemic emboli sm. CBC W/AUTO [id number] 08:16:00 Test Item Value Reference Range Interpretation Comments WHITE BLOOD CELL (test code = 10.8 x10 3/uL 4.8-10.8 N WBC) RED BLOOD CELL (test code = 2.90 x10 6/uL 4.20-5.40 L RBC) HEMOGLOBIN (test code = HGB) 8.3 g/dL 12.0-16.0 L HEMATOCRIT (test code = HCT) 27.3 % 37.0-47.0 L MEAN CELL VOLUME (test code = 94.1 fL 81.0-99.0 N MCV) MEAN CELL HGB (test code = MCH) 28.6 pg 27-31 N MEAN CELL HGB CONCENTRATION 30.4 G/DL 33-36.5 L (test code = MCHC) RED CELL DISTRIBUTION WIDTH 15.0 % 12.9-16.9 N (test code = RDW) PLATELET COUNT (test code = 172 x10 3/uL 150-440 N PLT) MEAN PLATELET VOLUME (test code 11.7 fL 8.9-12.4 N = MPV) NEUTROPHIL % (test code = NT%) 78.8 % 42.2-75.2 H LYMPHOCYTE % (test code = LY%) 8.7 % 20.5-51.1 L MONOCYTE % (test code = MO%) 5.0 % 1.7-9.3 N EOSINOPHIL % (test code = EO%) 6.5 % 0.0-7.0 N BASOPHIL % (test code = BA%) 0.4 % 0-2.5 N NEUTROPHIL # (test code = NT#) 8.53 x10 3/uL 1.80-7.70 H LYMPHOCYTE # (test code = LY#) 0.94 x10 3/uL 1.00-4.80 L MONOCYTE # (test code = MO#) 0.54 x10 3/uL 0.00-0.80 N EOSINOPHIL # (test code = EO#) 0.70 x10 3/uL 0.00-0.45 H BASOPHIL # (test code = BA#) 0.04 x10 3/uL 0.0-0.20 N BASIC METABOLIC [id number] 05:05:00 Test Item Value Reference Range Interpretation Comments SODIUM (test code = 138 mmol/L 136-145 N Please n ote: New NA) Reference Range Oct 2020 POTASSIUM (test code 3.9 mmol/L 3.5-5.1 N = K) CHLORIDE (test code = 102 mmol/L 98-107 N Please note: New CL) Reference Range Oct 2020 CARBON DIOXIDE (test 20 mmol/L 20-31 N Please note: New code = CO2) Reference Range Oct 2020 GLUCOSE (test code = 121 mg/dL 74-106 H Please note: New GLU) Reference Range Oct 2020 BLOOD UREA NITROGEN 20 mg/dL 9-23 N Please n ote: New (test code = BUN) Reference Range Oct 2020 GLOMERULAR FILTRATION 7 mL/min >60 L Units are RATE (test code = mL/min/1.7 3m2 The GFR) estimated glome rular filtration rate is computed usingp atient race, age (>18) , sex, and serum creat inine. If anyof the ne eded data elements a re missing the Lab oratory cannot compute an estimation of t he glomerular filt ration rate. CREATININE (test code 6.00 mg/dL 0.55-1.02 H Please note: New = CREAT) Reference Range Oct 2020 CALCIUM (test code = 8.1 mg/dL 8.7-10.4 L Please note: New CA) Reference Range Oct 2020 COMPREHENSIVE METABOLIC [id number] 05:05:00 Test Item Value Reference Range Interpretation Comments TOTAL PROTEIN (test 5.5 g/dL 5.7-8.2 L Please n ote: New code = PROT) Reference Range Oct 2020 ALBUMIN (test code = 3.6 g/dL 3.2-4.8 N Please note: New ALB) Reference Range Oct 2020 BILIRUBIN TOTAL (test 0.6 mg/dL 0.3-1.2 N Please note: New code = BILT) Reference Range Oct 2020 SGOT/AST (test code = 13 U/L <34 N Please note: New AST) Reference Range Oct 2020 SGPT/ALT (test code = 22 U/L 10-49 N Please note: New ALT) Reference Range Oct 2020 ALKALINE PHOSPHATASE 69 U/L 46-116 N Please note: New (test code = ALKP) Reference Range Oct 2020 [id number] 05:05:00 Test Item Value Reference Range Interpretation Comments PHOSPHOROUS (test code 6.4 mg/dL 2.4-5.1 H Pleas e note: New = PHOS) Reference Range Oct 2020 [id number] 05:05:00 Test Item Value Reference Range Interpretation Comments MAGNESIUM (test code = 1.5 mg/dL 1.6-2.6 L Pleas e note: New MAG) Reference Range Oct 2020 [id number] 22:27:00 Test Item Value Reference Range Interpretation Comments GLUBED (test code = GLUBED) 146 MG/DL 70-105 H - DUP VEIN [id number] 16:20:00 [facility] : 1955 Sex: FPatient Name: DESTINEY PRITCHARD Unit No: [id number] EXAMS: CPT CODE: [id number] DUP VEIN CALVIN [id number] Exam:Bilateral upper extremity duplex venous ultrasound Location: W1 Clinical Indication:66-year-old with AV fistula/graft creation Comparison:None Findings:Duplex ultrasound of the upper extremity veins wasperformed, including grayscale, color-flow, and spectral waveform analysis. Patient's left arteriovenous fistula is occluded. On the right, the basilic vein measures between 4 and 5 mm within the upper arm. The basilic vein is not identified within the forearm. The cephalic vein measures between 1 and 2 mm in the upper arm. The cephalic vein measures 4 mm at the level of the antecubital fossa (The left antecubital fossa cephalic vein is occluded). The cephalic vein measures between 1 and 2 mm within the forearm. On the left, the basilic vein is not identified. The cephalic vein measures 4 mm within the proximal upper arm, and 1 mm within the mid and distal aspects of the upper arm. The cephalic vein measures 5 mm within the antecubital fossa. (The right antecubital fossa cephalic vein is occluded). The cephalic vein measures between 2 and 3 mm within the forearm. Theright radial and ulnar arteries measure 3 and 2 mm, respectively. The left radial and ulnar arteries measure 4 and 2 mm, respectively. Impression: 1. The patient's left upper extremity arteriovenous fistula is occluded. 2. Thrombus is identified within the bilateral cephalic veins at the level of the antecubital fossae. at 1620 Reported and signed by: Laine Murphy MD CC: Justice Wiggins MD; Simon Zarate MD; Hawa Kumari Technologist: Cheyenne Varela Probe: Trscr Dt/Tm: 07/10/2021 (1383) by:[email or web address] Printed Date/Time: 07/10/2021 (5194) Name: DESTINEY PRITCHARD [facility] Phys: Hawa Oakes AP [address] : 1955 Age: 66 Sex: [place] [address] Loc: P.0218 1Exam Date: 07/10/2021 Status: ADM IN PH: FAX: PAGE 1 Signed Report- XR CHEST 1 [id number] 13:51:00 [facility] : 1955 Sex: FPatient Name: DESTINEY PRITCHARD Unit No: [id number] EXAMS: CPT CODE: [id number] XR CHEST 1 V 33650 CHEST, SINGLE VIEW DICTATION LOCATION A1 HISTORY: Postoperative evaluation. A single view of the chest at 1:08 PM was compared to a prior exam from July 09, 2021. FINDINGS: Mild cardiomegaly and central pulmonary vascular congestion have slightly worsened along with slight worsening of bibasilar atelectasis. Right dialysis catheter remains stable. No other acute findings are seen. IMPRESSION: Slight worsening of mild bibasilar lung atelectasis and mild cardiomegaly/central pulmonary vascular congestion. at 1351 Reported and signed by: Junior Hubbard Jr, MD CC: Justice Wiggins MD; Benjamin Singh MD; Simon Zarate MD Technologist: Jazmine Alves Time: DAP (Gy m2): Air Kerma (mGy): Trscr Dt/Tm: 07/10/2021 (1351) by:Cookie Printed Date/Time: 07/10/2021 (1153) Name: DESTINEY PRITCHARD [facility] Phys: CALEB - Benjamin Singh MD [address] : 1955 Age: 66 Sex: [place] [address] Loc: P.0218 1 Exam Date: 07/10/2021 Status: ADMIN PH: FAX: PAGE 1 Signed [id number] 12:32:00 Test Item Value Reference Range Interpretation Comments GLUBED (test code = GLUBED) 125 MG/DL 70-105 H [id number] 10:11:00 Test Item Value Reference Range Interpretation Comments TROPONIN-I (test 415.3 pg/mL 27.36-66.23 HH Critical Va lue reported code = TROPI) toFirst Name:Lele MANNING Last Name:AFSHAN KRIS READ BACK AND Kaleb Burrows P.LAB.CK, on , @ 1011.Please not e: Units and Reference Catracho gusman have changedFeb 3, 2 021 Spec Comments: from morning blood sampleBASIC METABOLIC [id number] 05:22:00 Test Item Value Reference Range Interpretation Comments SODIUM (test code = 140 mmol/L 136-145 N Please n ote: New NA) Reference Range Oct 2020 POTASSIUM (test code 3.0 mmol/L 3.5-5.1 L = K) CHLORIDE (test code = 101 mmol/L 98-107 N Please note: New CL) Reference Range Oct 2020 CARBON DIOXIDE (test 27 mmol/L 20-31 N Please note: New code = CO2) Reference Range Oct 2020 GLUCOSE (test code = 130 mg/dL 74-106 H Please note: New GLU) Reference Range Oct 2020 BLOOD UREA NITROGEN 22 mg/dL 9-23 N Please n ote: New (test code = BUN) Reference Range Oct 2020 GLOMERULAR FILTRATION 10 mL/min >60 L Units are RATE (test code = mL/min/1.7 3m2 The GFR) estimated glome rular filtration rate is computed usingp atient race, age (>18) , sex, and serum creat inine. If anyof the ne eded data elements a re missing the Lab oratory cannot compute an estimation of t he glomerular filt ration rate. CREATININE (test code 4.70 mg/dL 0.55-1.02 H Please note: New = CREAT) Reference Range Oct 2020 CALCIUM (test code = 8.0 mg/dL 8.7-10.4 L Please note: New CA) Reference Range Oct 2020 [id number] 05:22:00 Test Item Value Reference Range Interpretation Comments PHOSPHOROUS (test code 4.4 mg/dL 2.4-5.1 Pleas e note: New = PHOS) Reference Range Oct 2020 PARATHYROID [id number] 04:44:00 Test Item Value Reference Range Interpretation Comments PARATHYROID HORMONE 213.5 pg/mL 18.4-80.1 H Please n ote: New (test code = PTH) Reference Range Oct 2020 CBC W/AUTO [id number] 04:22:00 Test Item Value Reference Range Interpretation Comments WHITE BLOOD CELL (test code = 10.0 x10 3/uL 4.8-10.8 N WBC) RED BLOOD CELL (test code = 3.05 x10 6/uL 4.20-5.40 L RBC) HEMOGLOBIN (test code = HGB) 9.1 g/dL 12.0-16.0 L HEMATOCRIT (test code = HCT) 29.0 % 37.0-47.0 L MEAN CELL VOLUME (test code = 95.1 fL 81.0-99.0 N MCV) MEAN CELL HGB (test code = MCH) 29.8 pg 27-31 N MEAN CELL HGB CONCENTRATION 31.4 G/DL 33-36.5 L (test code = MCHC) RED CELL DISTRIBUTION WIDTH 14.7 % 12.9-16.9 N (test code = RDW) PLATELET COUNT (test code = 184 x10 3/uL 150-440 N PLT) MEAN PLATELET VOLUME (test code 11.3 fL 8.9-12.4 N = MPV) NEUTROPHIL % (test code = NT%) 78.4 % 42.2-75.2 H LYMPHOCYTE % (test code = LY%) 12.9 % 20.5-51.1 L MONOCYTE % (test code = MO%) 4.3 % 1.7-9.3 N EOSINOPHIL % (test code = EO%) 3.7 % 0.0-7.0 N BASOPHIL % (test code = BA%) 0.5 % 0-2.5 N NEUTROPHIL # (test code = NT#) 7.86 x10 3/uL 1.80-7.70 H LYMPHOCYTE # (test code = LY#) 1.29 x10 3/uL 1.00-4.80 N MONOCYTE # (test code = MO#) 0.43 x10 3/uL 0.00-0.80 N EOSINOPHIL # (test code = EO#) 0.37 x10 3/uL 0.00-0.45 N BASOPHIL # (test code = BA#) 0.05 x10 3/uL 0.0-0.20 N AB HEPATITIS B [id number] 02:35:00 Test Item Value Reference Range Interpretation Comments AB HEPATITIS B SURFACE (test code = REACTIVE Nonreactive A HBSAB) AG HEPATITIS B [id number] 02:35:00 Test Item Value Reference Range Interpretation Comments AG HEPATITIS B SURFACE (test code Nonreactive Nonreactive = HBSAG) AB HEPATITIS B [id number] 02:35:00 Test Item Value Reference Range Interpretation Comments AB HEPATITIS B CORE (test code = Nonreactive Nonreactive HBCAB) AB HEPATITIS [id number] 02:35:00 Test Item Value Reference Range Interpretation Comments AB HEPATITIS C (test code = Nonreactive Nonreactive HCVAB) PROTHROMBIN [id number] 18:20:00 Test Item Value Reference Range Interpretation Comments PROTHROMBIN TIME 13.2 SECONDS 10.3-12.9 H PATIENT (test code = PTP) INTERNATIONAL 1.16 INR UNIT 0.9-1.11 H The INR is [...] 2.5-3.5recurren t systemic emboli sm. THROMBOPLASTIN TIME [id number] 18:20:00 Test Item Value Reference Range Interpretation Comments THROMBOPLASTIN TIME 27.3 SECONDS 23.8-34.8 N INTERPRE TATIVE PARTIAL (test code = DATA: erapeutic PTT) range: Unfractionated heparin:55 - 80 seconds Argatroban:1.5 to 3 times the basel ine PTT CBC W/AUTO [id number] 18:14:00 Test Item Value Reference Range Interpretation Comments WHITE BLOOD CELL (test code = 9.4 x10 3/uL 4.8-10.8 N WBC) RED BLOOD CELL (test code = 3.37 x10 6/uL 4.20-5.40 L RBC) HEMOGLOBIN (test code = HGB) 9.9 g/dL 12.0-16.0 L HEMATOCRIT (test code = HCT) 31.4 % 37.0-47.0 L MEAN CELL VOLUME (test code = 93.2 fL 81.0-99.0 N MCV) MEAN CELL HGB (test code = MCH) 29.4 pg 27-31 N MEAN CELL HGB CONCENTRATION 31.5 G/DL 33-36.5 L (test code = MCHC) RED CELL DISTRIBUTION WIDTH 14.8 % 12.9-16.9 N (test code = RDW) PLATELET COUNT (test code = 203 x10 3/uL 150-440 N PLT) MEAN PLATELET VOLUME (test code 11.9 fL 8.9-12.4 N = MPV) NEUTROPHIL % (test code = NT%) 69.0 % 42.2-75.2 N LYMPHOCYTE % (test code = LY%) 20.7 % 20.5-51.1 N MONOCYTE % (test code = MO%) 6.1 % 1.7-9.3 N EOSINOPHIL % (test code = EO%) 3.4 % 0.0-7.0 N BASOPHIL % (test code = BA%) 0.5 % 0-2.5 N NEUTROPHIL # (test code = NT#) 6.50 x10 3/uL 1.80-7.70 N LYMPHOCYTE # (test code = LY#) 1.95 x10 3/uL 1.00-4.80 N MONOCYTE # (test code = MO#) 0.57 x10 3/uL 0.00-0.80 N EOSINOPHIL # (test code = EO#) 0.32 x10 3/uL 0.00-0.45 N BASOPHIL # (test code = BA#) 0.05 x10 3/uL 0.0-0.20 N BLOOD GAS [id number] 17:58:00 Test Item Value Reference Range Interpretation Comments ARTERIAL BLOOD GAS PH 7.42 7.35-7.45 N (test code = PHA) ARTERIAL BLOOD GAS PCO2 35.2 mmHg 35.0-45.0 N (test code = PCO2A) ARTERIAL BLOOD GAS PO2 63.2 mmHg 80.0-95.0 L (test code = PO2A) BICARBONATE TOTAL HCO3 22.4 mmol/L 22.0-24.0 N (test code = HCO3) BASE EXCESS (test code -1.6 mmol/L See_Comment N [Aut omated = SUSHANT) message] The system which generated this result transmitted reference range : (+/-)2.0. The reference range was not used to interpret this result as normal/abnormal . ABG O2 SATURATION (test 91.0 % 95.0-100.0 L code = SATA) ARTERIAL FIO2 (test 21.0 % code = FIO2A) ABG VENT MODE (test Room Air code = MODEA) ALLENS TEST (test code NOT APPLICAPLE = ALLENS) SODIUM (POC) (test code 137 mmol/L 135-147 N = NA/ABG) POTASSIUM (POC) (test 3.25 mmol/L 3.6-5.2 L code = K/ABG) CHLORIDE (ARTERIAL) 99 mmol/L 98-108 N (test code = CL/ABG) GLUCOSE (test code = 96 mg/dL 70-104 N GLU/ABG) IONIZED CALCIUM (test 1.03 mmol/L 1.12-1.32 L code = CAIABG) POC LACTIC ACID (test 1.08 mmol/L 0.5-2.2 N code = POCLAC) TOTAL HGB (test code = 11.0 g/dL 12.0-16.0 L THB) OXYHEMOGLOBIN (test 90.5 % 92.0-98.0 L code = OOHGBT) CARBOXYHEMOGLOBIN (test 0.3 % 0-5.0 N code = HOHGBT) METHEMOGLOBIN (test <0.8 % 0-1.5 N code = METHGB) HHb (test code = HHB) 8.9 % TCO2 ARTERIAL (test 23.5 MMOL/L 24-30 L code = TCO2A) PaO2/[id number] 17:58:00 Test Item Value Reference Range Interpretation Comments PaO2/FiO2 (test code = ROE1YDQ0) 300.90 >200 COVID 19 Asymptomatic IH [id number] 17:32:00 Test Item Value Reference Range Interpretation Comments COVID 19 NEGATIVE NEGATIVE Negative result s, from Asymptomatic IH AG patients with symptom (test code = onset beyondfiv e days, COVNONPUIAG) should be treat ed as presumptive and confirmationwit h a molecular assay , if necessary for patientmanageme nt, may be performed. Nega tive results do not ruleout COVID-19 and sh ould not be used as the sole basis fortreatment or patient management deci sions, includinginfect ion control decisio ns. Negative result s should beconsidered in the context of a pa tient's recent exposure s,history and the presenc e of clinical signs and symptomsconsist ent with COVID-19. BASIC METABOLIC [id number] 17:20:00 Test Item Value Reference Range Interpretation Comments SODIUM (test code = 141 mmol/L 136-145 N Please n ote: New NA) Reference Range Oct 2020 POTASSIUM (test code 3.1 mmol/L 3.5-5.1 L = K) CHLORIDE (test code = 101 mmol/L 98-107 N Please note: New CL) Reference Range Oct 2020 CARBON DIOXIDE (test 25 mmol/L 20-31 N Please note: New code = CO2) Reference Range Oct 2020 GLUCOSE (test code = 100 mg/dL 74-106 N Please note: New GLU) Reference Range Oct 2020 BLOOD UREA NITROGEN 41 mg/dL 9-23 H Please n ote: New (test code = BUN) Reference Range Oct 2020 GLOMERULAR FILTRATION 5 mL/min >60 L Units are RATE (test code = mL/min/1.7 3m2 The GFR) estimated glome rular filtration rate is computed usingp atient race, age (>18) , sex, and serum creat inine. If anyof the ne eded data elements a re missing the Lab oratory cannot compute an estimation of t he glomerular filt ration rate. CREATININE (test code 8.00 mg/dL 0.55-1.02 H Please note: New = CREAT) Reference Range Oct 2020 CALCIUM (test code = 8.4 mg/dL 8.7-10.4 L Please note: New CA) Reference Range Oct 2020 [id number] 17:20:00 Test Item Value Reference Range Interpretation Comments PHOSPHOROUS (test code 7.9 mg/dL 2.4-5.1 H Pleas e note: New = PHOS) Reference Range Oct 2020 [id number] 17:20:00 Test Item Value Reference Range Interpretation Comments MAGNESIUM (test code = 1.7 mg/dL 1.6-2.6 N Pleas e note: New MAG) Reference Range Oct 2020 PROTHROMBIN [id number] 17:07:00 Test Item Value Reference Range Interpretation Comments PROTHROMBIN TIME 13.1 SECONDS 10.3-12.9 H PATIENT (test code = PTP) INTERNATIONAL 1.15 INR UNIT 0.9-1.11 H The INR is [...] 2.5-3.5recurren t systemic emboli sm. THROMBOPLASTIN TIME [id number] 17:07:00 Test Item Value Reference Range Interpretation Comments THROMBOPLASTIN TIME 30.2 SECONDS 23.8-34.8 N INTERPRE TATIVE PARTIAL (test code = DATA:Th erapeutic PTT) range: Unfractionated heparin:55 - 80 seconds Argatroban:1.5 to 3 times the basel ine PTT CBC W/AUTO [id number] 15:20:00 Test Item Value Reference Range Interpretation Comments WHITE BLOOD CELL (test code = 10.4 x10 3/uL 4.8-10.8 N WBC) RED BLOOD CELL (test code = 3.36 x10 6/uL 4.20-5.40 L RBC) HEMOGLOBIN (test code = HGB) 9.9 g/dL 12.0-16.0 L HEMATOCRIT (test code = HCT) 31.2 % 37.0-47.0 L MEAN CELL VOLUME (test code = 92.9 fL 81.0-99.0 N MCV) MEAN CELL HGB (test code = MCH) 29.5 pg 27-31 N MEAN CELL HGB CONCENTRATION 31.7 G/DL 33-36.5 L (test code = MCHC) RED CELL DISTRIBUTION WIDTH 14.9 % 12.9-16.9 N (test code = RDW) PLATELET COUNT (test code = 205 x10 3/uL 150-440 N PLT) MEAN PLATELET VOLUME (test code 11.4 fL 8.9-12.4 N = MPV) NEUTROPHIL % (test code = NT%) 68.7 % 42.2-75.2 N LYMPHOCYTE % (test code = LY%) 20.8 % 20.5-51.1 N MONOCYTE % (test code = MO%) 6.2 % 1.7-9.3 N EOSINOPHIL % (test code = EO%) 3.3 % 0.0-7.0 N BASOPHIL % (test code = BA%) 0.5 % 0-2.5 N NEUTROPHIL # (test code = NT#) 7.17 x10 3/uL 1.80-7.70 N LYMPHOCYTE # (test code = LY#) 2.17 x10 3/uL 1.00-4.80 N MONOCYTE # (test code = MO#) 0.65 x10 3/uL 0.00-0.80 N EOSINOPHIL # (test code = EO#) 0.34 x10 3/uL 0.00-0.45 N BASOPHIL # (test code = BA#) 0.05 x10 3/uL 0.0-0.20 N RECOLLECT- XR CHEST 1 [id number] 14:41:00 [facility] : 1955 Sex: FPatient Name: DESTINEY PRITCHARD Unit No: [id number] EXAMS: CPT CODE: [id number] XR CHEST 1 V 93072 Single View Chest. Location: W1 Clinical Indication: 66-year-old with weakness Comparison: None Impression: Lungs are grossly clear. There is mild enlargement of heart. A right IJ tunneled hemodialysis catheter is present. No acute osseous abnormality. at 1441 Reported and signed by: Laine Murphy MD CC: Justice Wiggins MD; Jose G Cain MD Technologist: Adolfo Puente Fluoro Time: DAP (Gy m2): Air Kerma (mGy): Trscr Dt/Tm: 07/09/2021 (1441) by:[email or web address] Printed Date/Time: 07/09/2021 (1444) Name: DESTINEY PRITCHARD [facility] Phys: Jose G Fragoso MD [address] : 1955 Age: 66 Sex: [place] [address] Loc: EULOGIO 1 Exam Date: 07/09/2021 Status: ADM IN PH: FAX: PAGE 1 Signed ReportBASIC METABOLIC [id number] 14:23:00 Test Item Value Reference Range Interpretation Comments SODIUM (test code = 141 mmol/L 136-145 N Please n ote: New NA) Reference Range Oct 2020 POTASSIUM (test code 3.6 mmol/L 3.5-5.1 N = K) CHLORIDE (test code = 98 mmol/L 98-107 N Please note: New CL) Reference Range Oct 2020 CARBON DIOXIDE (test 26 mmol/L 20-31 N Please note: New code = CO2) Reference Range Oct 2020 GLUCOSE (test code = 118 mg/dL 74-106 H Please note: New GLU) Reference Range Oct 2020 BLOOD UREA NITROGEN 43 mg/dL 9-23 H Please n ote: New (test code = BUN) Reference Range Oct 2020 GLOMERULAR FILTRATION 5 mL/min >60 L Units are RATE (test code = mL/min/1.7 3m2 The GFR) estimated glome rular filtration rate is computed usingp atient race, age (>18) , sex, and serum creat inine. If anyof the ne eded data elements a re missing the Lab oratory cannot compute an estimation of t he glomerular filt ration rate. CREATININE (test code 8.20 mg/dL 0.55-1.02 H Please note: New = CREAT) Reference Range Oct 2020 CALCIUM (test code = 8.3 mg/dL 8.7-10.4 L Please note: New CA) Reference Range Oct 2020 [id number] 14:23:00 Test Item Value Reference Range Interpretation Comments PHOSPHOROUS (test code 8.5 mg/dL 2.4-5.1 H Pleas e note: New = PHOS) Reference Range Oct 2020 [id number] 14:23:00 Test Item Value Reference Range Interpretation Comments MAGNESIUM (test code = 1.7 mg/dL 1.6-2.6 N Pleas e note: New MAG) Reference Range Oct 2020 THYROID STIMULATING [id number] 14:23:00 Test Item Value Reference Range Interpretation Comments THYROID STIMULATING 31.47 mIU/mL 0.55-4.78 H Please n ote: New HORMONE (test code = Referen ce Range Oct TSH) 2020 [id number] 14:17:00 Test Item Value Reference Range Interpretation Comments TROPONIN-I (test 285.7 pg/mL 27.36-66.23 HH Critical Va lue reported code = TROPI) toFirst Name:Vinod JOHNSON Last Name:TANMAY ARCE READ BACK AND VENKATA LAZAR, on , @ 2379.Please not e: Units and Reference R uzma have changedFeb 3, 2 021 T4, [id number] 06:45:00 Test Item Value Reference Range Interpretation Comments T4, free (test code 1.6 ng/dL 0.8-1.8 = 3024-7) KENDRICK (test code = FASTING:NO FASTING: NO KENDRICK) RAC (test code = Performing Organization RAC) Information: Site ID: [facility] Name: [facility] Address: [address] [place] [address] Director: [facility] HospitalThyroid stimulating [id number] 06:45:00 Test Item Value Reference Range Interpretation Comments TSH (test See_Comment [Automated mes david] code = The system ic h 3016-3) generated this result transmit barbara reference range : 0.40 - 4.50 mIU /L. The reference r uzma was not used to interpret this result as normal/abnormal . KENDRICK (test FASTING:NO FASTING: code = KENDRICK) NO RAC (test Performing code = RAC) Organization Information: Site ID: [facility] Name: [facility] Address: [address] [place] [address] Director: Alyssa Ville [id number] 06:45:00 Test Item Value Reference Range Interpretation Comments T3 (test code = 102 ng/dL 76-181 3053-6) KENDRICK (test code = FASTING:NO FASTING: NO KENDRICK) RAC (test code = Performing Organization RAC) Information: Site ID: A Name: [facility] Address: [address] [place], [place] [id number] Director: Peoples HospitalT4, [id number] 12:00:00 Test Item Value Reference Range Interpretation Comments T4, FREE (test code 1.4 ng/dL 0.8-1.8 = 3024-7) RAC (test code = Performing Organization RAC) Information: ? ?Site ID: T[facility]HA ? ?Name: [facility] ? ?Address: [address] [place] [phone] ? ?Director: LAINE MATTHEW MD [facility] [id number] 12:00:00 Test Item Value Reference Range Interpretation Comments TSH (test code = See_Comment H REPORT 3016-3) COMMENT:FASTING :Y ES [Automated message] The system which generated this result transmitted reference range : 0.40 - 4.50 mIU/L. The reference range was not used to interpret this result as normal/abnormal . RAC (test code = Performing RAC) Organization Information: ? ?Site ID: RGA ? ?Name: [facility] ? ?Address: [address] [place] [phone] ? 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 Interpretation Abnormal (test code = 83879-0) [facility] 12 [id number] 22:11:37 Test Item Value Reference Range Interpretation Comments Ventricular rate (test code = 253) Atrial rate (test code = 255) OR interval (test code = 266) QRSD interval (test code = 260) QT interval (test code = 264) QTC interval (test code = 265) P axis 1 (test code = 267) QRS axis 1 (test code = 268) T wave axis (test code = 270) EKG impression (test Sinus bradycardia with code = 273) 1st degree AV block-Nonspecific intraventricular block-Inferior infarct , age undetermined-Abnormal ECG-No previous ECGs available- [facility] HospitalTran[facility]hor[facility] Echocardi[facility] Complete, (w Contrast, Strain and 3D if needed)2021-02-22 22:40:00 Echocardiography Report [id number] [address] [facility].Name: DESTINEY PRITCHARD Pat.ID: [id number] .Date: 02/22/2021 Refer.MD: HTI SIERRA MD Exam Time: 4:27:00 PM Study Type:Routine Echo Height: 60in Weight: 200.58lb BSA: 1.87 m2 Age: 8 1955,65Y Sex: FEMALE BP: 76/42 HR: 52 bpm Sonogrphr: nancy Woodruff. Stat.:Inpatient StudyStatus:Final Echo Event ID:[id number] Order ID: [id number] Reason for Study:Valvular disease-initial evalHistory / Clinical:Valvular Heart Disease; Aortic StenosisProcedures: 2D Echo, 2D Echo, Colorflow DopplerRace: C SUMMARY: LV EF is hyperdynamic. Estimated EF is>70%.RV systolic function is normal.Moderate calcific aortic/mitral valve stenosis.Valvular high velocity and pressure gradient is secondary to high flowstate and calcific valvular stenosis.--------- FINDINGS: LV: LV size is normal.There is mild concentric LV hypertrophy. LV EF is hyperdynamic. Overall wall motion is hyperdynamic. Estimated EF is >70%.RV: RV size is mildly enlarged. RV systolic functionis normal.LA: LA volume is moderately to severely enlarged.RA: RA volume is enlarged.AO: Aortic root diameter is grossly normal in size. Calcifications in ascending aorta.SEDRICK: No pericardial effusion. There is an anterior space consistent with a prominent epicardial fat pad.IAS: Interatrial septum is thickened consistent with lipomatous hypertrophy. This is a normal variant commonly seen.AV: Severe thickening and calcification of AV leaflets. Moderate aortic valve stenosis. Estimated mean aortic valve gradient 31 mmHg with a valve area of 1 cm2 (DVI 0.4). Aortic valve high velocity and pressure gradient is secondary to high flow state and valvular stenosis.MV: Moderate to severe thickening and calcification of mitral leaflets. Thickened and/or calcified mitral annulus. Thickened and/or calcified chordae. Moderate calcific mitral stenosis. Estimated mean mitral valve gradient 9 mmHg at a heart rate of 56 b/min. Mitral valve high velocity and pressure gradient is secondary to high flow state and valvular stenosis.PV: Pulmonic valve not well seen.TV: No structural TV abnormalities noted. A trace of tricuspid regurgitation Shaw: Unable to assess diastolic function due to presence of mitral stenosis.Other: Insufficient TR jet to estimate PA systolic pressure. MEASUREMENT S: 2DParasternal Long [place] Ao An 1.5 cm LVPWd 1.3 cm Ao Rtd 2.8 cm Index 1.5 cm/m2 LA Ds 4.9 cm IVSd 1.3 cm RWT 0.61 LVIDd 4.2 cm Index 2.2 cm/m2 LV Mass 190 g (87-129)* LVIDs 2.1 cm LVM Index 102 g/m2 LV%fs 50 % LA Sng Plane LA Area 27 cm2 (8.8-23.4)* LA Vol 83 ml Index 45 ml/m2 LA LngAx 7.2 cm RA Sng Plane RA Vol 55 ml Index 29 ml/m2 RA LngAx 6.1 cm RA Area 20 cm2 (8.3-19.5)*LVOT For FlowLVOT 1.8 cm LVOT Area 2.5 cm2 DOPPLERAV For Flow/ARLENE AV pkVel 357 cm/s (100-170)* AV TVI 93 cm AV mnVel 253 cm/s AVpkAcRt 4373 cm/s2 AV pkPG 51 mmHg AV DeRt 969 cm/s2 AV Mean G 31 mmHg AV Area 1 cm2 (3-5)* AV ET 368 msec AV AC 181 msec (83-118)* AV AC/ET 0.49 Aortic Valve AV DI 0.4 LVOT For Flow LVOT TVI 37 cm LVOT CI 2.9 l/m/m2 LVOTSV 94 ml LVOTpkPG 11 mmHg LVOTpkVel 168 cm/s LVOTmnPG 5.5 mmHg LVOT CO 5.4 l/min HR 58 bpm LVOT SVi50 ml/m2 MV Forward Flow MV pkVel 214 cm/s MV TVI 100 cm MV pkPG 18 mmHg MV Area P1/2t 1.2 cm2 (4-6)* MV Mean G 9.3 mmHg MV Dec T 609 msec Signed 02/22/2021 05:40 PMBrittany Coronado MDInterface, Radiology Results In - 02/22/2021 5:41 PM CDT Echocardiography Report [id number] [place] [address] Pat.Name: DESTINEY PRITCHARD Pat.ID: [id number] .Date: 02/22/2021 Refer.MD: THI SIERRA MD Exam Time: 4:27:00 PM Study Type:Routine Echo Height: 60in Weight: 200.58lb BSA: 1.87 m2 Age: 8 1955,65Y Sex: FEMALE BP: 76/42 HR: 52 bpm Sonogrphr: nancy Woodruff Pat. Stat.:Inpatient Study Status:Final Echo Event ID:[id number] Order ID: [id number] Reason for Study:Valv ular disease-initial evalHistory / Clinical:Valvular Heart Disease; Aortic StenosisProcedures: 2D Echo, 2D Echo, Colorflow DopplerRace: C S UMMARY: LV EF is hyperdynamic. Estimated EF is >70%.RV systolic function is normal.Moderate calcific aortic/mitral valve stenosis.Valvular high velocity and pressure gradient is secondary to high flowstate and calcific valvular stenosis. --------FINDINGS: LV: LV size is normal. There is mild concentric LV hypertrophy. LV EF is hyperdynamic. Overall wall motion is hyperdynamic. Estimated EF is >70%.RV: RV size is mildly enlarged. RV systolic function is normal.LA: LA volume is moderately to severely enlarged.RA: RA volume is enlarged.AO: Aortic root diameter is grossly normal in size. Calcifications in ascending aorta.SEDRICK: No pericardial effusion. There is an anterior space consistent with a prominent epicardial fat pad.IAS: Interatrial septum is thickened consistent with lipomatous hypertrophy. This is a normal variant commonly seen.AV: Severe thickening and calcification of AV leaflets. Moderate aortic valve stenosis. Estimated mean aortic valve gradient 31 mmHg with a valve area of 1 cm2 (DVI 0.4). Aortic valve high velocity and pressure gradient is secondary to high flow state and valvular stenosis.MV: Moderate to severe thickening and calcification of mitral leaflets. Thickened and/or calcified mitral annulus. Thickened and/or calcifiedchordae. Moderate calcific mitral stenosis. Estimated mean mitral valve gradient 9 mmHg at a heart rate of 56 b/min. Mitral valve high velocity and pressure gradient is secondary to high flow state and valvular stenosis.PV: Pulmonic valve not well seen.TV: No structural TV abnormalities noted. A trace of tricuspid regurgitation Shaw: Unableto assess diastolic function due to presence of mitral stenosis.Other: Insufficient TR jet to estimate PA systolic pressure. MEASUREMENTS: 2DParasternal Long [place] Ao An 1.5 cm LVPWd 1.3 cm Ao Rtd 2.8 cm Index 1.5 cm/m2 LA Ds 4.9 cm IVSd 1.3 cm RWT 0.61 LVIDd 4.2 cm Index 2.2 cm/m2 LV Mass 190 g (87-129)* LVIDs 2.1 cm LVM Index 102 g/m2 LV%fs 50 % LA Sng Plane LA Area 27 cm2 (8.8-23.4)* LA Vol 83 ml Index 45 ml/m2 LA LngAx 7.2 cm RA Sng Plane RA Vol 55 ml Index 29 ml/m2 RA LngAx 6.1 cm RA Area 20 cm2 (8.3-19.5)*LVOT For Flow LVOT 1.8 cm LVOT Area 2.5 cm2 DOPPLERAV For Flow/ARLENE AV pkVel 357 cm/s (100-170)* AV TVI 93 cm AV mnVel 253 cm/s AVpkAcRt 4373 cm/s2 AV pkPG 51 mmHg AV DeRt 969 cm/s2 AV Mean G 31 mmHg AV Area 1 cm2 (3-5)* AV ET 368 msec AV AC 181 msec (83- 118)* AV AC/ET 0.49 Aortic Valve AV DI 0.4LVOT For Flow LVOT TVI 37 cm LVOT CI 2.9 l/m/m2 LVOT SV 94 ml LVOTpkPG 11 mmHg LVOTpkVel 168 cm/s LVOTmnPG 5.5 mmHg LVOT CO 5.4 l/min HR 58 bpm LVOT SVi 50 ml/m2 MVForward Flow MV pkVel 214 cm/s MV TVI 100 cm MV pkPG 18 mmHg MV Area P1/2t 1.2 cm2 (4-6)* MV Mean G 9.3 mmHg MV Dec T 609 msec Signed 02/22/2021 05:40 PMBrittany [facility]ado [facility],DX OR [id number] 19:33:29Cirilo Hernandez RN 02/22/2021 2:35 PMMidline Insertion Date/Time: 02/22/2021 2:33 PMPerformed by: Santino Chu, RNAuthorized by: Juventino Zhao MD Consent: Consent obtained: Verbal Consentgiven by: Patient Risks discussed: Arterial puncture, incorrect placement, nerve damage, bleeding, infection, deep vein thrombus and superficial thrombus Alternatives discussed: Delayed treatmentUn iversal protocol: Procedure explained and questions answered to patient or proxy's satisfaction: yes Relevant documents present and verified: yes Test results available and properly labeled: yes Imaging studies available: yes Required blood products, implants, devices, and special equipment available: yes Site/side marked: yes Immediately prior to procedure, a time out was called:yes Patient identity confirmed: Verbally with patient, arm band, provided demographic data and hospital-assigned identification numberPre-procedure details: Hand hygiene: Hand hygiene performed prior to insertion Sterile barrier technique: All elements of maximal sterile technique followedSkin preparation: ChloraPrep Skin preparation agent: Dried prior to procedure Anesthesia (see MARfor exact dosages): Anesthesia method: Local infiltration Local anesthetic: Lidocaine 1% w/o epi Route administered: SubcutaneousMidLine Placement Details (Will create an LDA): Patient position: Flat Vessel Size (mm): 6 Indication: Poor venous access Location: Right basilic Device Type: Non-valved Catheter Lumen(s): Single lumen Catheter size: 4 Fr Catheter to vein ratio: 25%MidLine Characteristics: Catheter Brand: AngioMiroi External Catheter Length (cm): 0 Internal Catheter Length (cm): 9 Total Catheter Length (cm): 9 Catheter Lot Number: [id number] Catheter Expiration Date: 1Procedure details: Landmarks identified: yes Ultrasound guidance:yes Sterile ultrasound techniques: Sterile gel and sterile probe covers were used Number of attempts: 1 Number of MidLine kits used during procedure: 1 Extra guide wire required?: No Purpose of procedure: Midline Placement Patency/Placement: Flushes without difficulty, flushed with 10 mL normal saline, positive blood return, injection cap placed and ultrasound MidLine placed utilizing ultrasound-guided Modified Seldinger Technique: Yes Dressing/Securement: Catheter securement device and antimicrobial dressing applied Blood Loss Amount: Less than 20 mLPost- procedure details:Post-procedure: Dressing applied Patient tolerance of procedure: Tolerated well, no immediate complicationsMethodist HospitalXR [facility] 1 Vw [id number] 01:03:12EXAMINATION: XR CHEST 1 VW PORTABLE CLINICAL HISTORY: 65 years Female SOB COMPARISON: December 02 IMPRESSION: Cardiomediastinal silhouette is unchanged. Atelectasis in the lung bases Age related changes in the osseous structures. Right central venous catheter the tip of the catheter terminating the superior vena cava. No pneumothorax . Interface, Radiology Results Incoming - 02/21/2021 8:06 PM CDT EXAMINATION: XR CHEST 1 VW PORTABLECLINICAL HISTORY: 65 years Female SOBCOMPARISON: December 02IMPRESSION:Cardiomediastinal silhouette is unchanged. Atelectasis in the lung bases Age related changes in the osseous structures.Right central venous catheter the tip of the catheter terminating the superior vena cava. No pneumothorax.[facility] ED Preliminary Interpretation - Not an Order 2021-02-21 22:49:06 Test Item Value Reference Range Interpretation Comments KENDRICK (test code = KENDRICK) See Carr DO 02/25/2021 9:26 [facility] [place] Interpretation - Not an OrderPerformed by: See Carr DOAuthorized by: See Carr DO ECG reviewed by ED Physician in the absence of a harpooner: yes Interpretation: Interpretation: abnormal Rate: ECG rate: 59 ECG rate assessment: bradycardic Rhythm: Rhythm: sinus bradycardia and A-V block QRS: QRS axis: Normal QRS intervals: NormalConduction: Conduction: abnormal Abnormal conduction: 1st degree and non-specific intraventricular conduction delay ST segments: ST segments: NormalT waves: T waves: normal Lab Interpretation Abnormal (test code = 56698-2) [facility] METABOLIC [id number] 04:58:00 Test Item Value Reference Range Interpretation Comments SODIUM (test code = 136 mmol/L 136-145 N Please n ote: New NA) Reference Range Oct 2020 POTASSIUM (test code 4.4 mmol/L 3.5-5.1 N = K) CHLORIDE (test code 96 mmol/L 98-107 L Please n ote: New = CL) Reference Range Oct 2020 CARBON DIOXIDE (test 20 mmol/L 20-31 N Please note: New code = CO2) Reference Range Oct 2020 GLUCOSE (test code = 171 mg/dL 74-106 H Please note: New GLU) Reference Range Oct 2020 BLOOD UREA NITROGEN 74 mg/dL 9-23 H Please n ote: New (test code = BUN) Reference Range Oct 2020 GLOMERULAR 4 >60 L The estimated FILTRATION RATE glomerular f iltration (test code = GFR) rate is co mputed usingpatient ra ce, age (>18), sex, and serum creatinine. If anyof the needed data elements are mi ssing the Laboratory cannot compute an noe mation of the glomerul ar filtration rate . CREATININE (test 11.10 mg/dL 0.55-1.02 Critical Va lue code = CREAT) reported Aakash duarte Name:KOLTON Mancuso Name:ANGELICA Servando READ BACK AND VERIFIEDby ALEXANDRA MADRID, on 02/01/21, @ 3149.Please not e: New Reference Range Oct 2020 CALCIUM (test code = 8.8 mg/dL 8.7-10.4 N Please note: New CA) Reference Range Oct 2020 CBC W/AUTO [id number] 04:35:00 Test Item Value Reference Range Interpretation Comments WHITE BLOOD CELL (test code = 11.0 x10 3/uL 4.8-10.8 H WBC) RED BLOOD CELL (test code = 3.42 x10 6/uL 4.20-5.40 L RBC) HEMOGLOBIN (test code = HGB) 10.7 g/dL 12.0-16.0 L HEMATOCRIT (test code = HCT) 32.9 % 37.0-47.0 L MEAN CELL VOLUME (test code = 96.2 fL 81.0-99.0 N MCV) MEAN CELL HGB (test code = MCH) 31.3 pg 27-31 H MEAN CELL HGB CONCENTRATION 32.5 G/DL 33-36.5 L (test code = MCHC) RED CELL DISTRIBUTION WIDTH 14.1 % 12.9-16.9 N (test code = RDW) PLATELET COUNT (test code = 214 x10 3/uL 150-440 N PLT) MEAN PLATELET VOLUME (test code 11.4 fL 8.9-12.4 N = MPV) NEUTROPHIL % (test code = NT%) 77.8 % 42.2-75.2 H LYMPHOCYTE % (test code = LY%) 13.0 % 20.5-51.1 L MONOCYTE % (test code = MO%) 8.1 % 1.7-9.3 N EOSINOPHIL % (test code = EO%) 0.3 % 0.0-7.0 N BASOPHIL % (test code = BA%) 0.3 % 0-2.5 N NEUTROPHIL # (test code = NT#) 8.56 x10 3/uL 1.80-7.70 H LYMPHOCYTE # (test code = LY#) 1.43 x10 3/uL 1.00-4.80 N MONOCYTE # (test code = MO#) 0.89 x10 3/uL 0.00-0.80 H EOSINOPHIL # (test code = EO#) 0.03 x10 3/uL 0.00-0.45 N BASOPHIL # (test code = BA#) 0.03 x10 3/uL 0.0-0.20 N AB HEPATITIS B [id number] 16:51:00 Test Item Value Reference Range Interpretation Comments AB HEPATITIS B SURFACE (test code = REACTIVE Nonreactive A HBSAB) AG HEPATITIS B [id number] 16:51:00 Test Item Value Reference Range Interpretation Comments AG HEPATITIS B SURFACE (test code Nonreactive Nonreactive = HBSAG) AB HEPATITIS B [id number] 16:51:00 Test Item Value Reference Range Interpretation Comments AB HEPATITIS B CORE (test code = Nonreactive Nonreactive HBCAB) AB HEPATITIS [id number] 16:51:00 Test Item Value Reference Range Interpretation Comments AB HEPATITIS C (test code = Nonreactive Nonreactive HCVAB) [id number] 13:26:00 Test Item Value Reference Range Interpretation Comments GLUBED (test code = GLUBED) 125 MG/DL 70-105 H BASIC METABOLIC [id number] 11:40:00 Test Item Value Reference Range Interpretation Comments SODIUM (test code = 136 mmol/L 136-145 N Please n ote: New NA) Reference Range Oct 2020 POTASSIUM (test code 4.4 mmol/L 3.5-5.1 N = K) CHLORIDE (test code 97 mmol/L 98-107 L Please n ote: New = CL) Reference Range Oct 2020 CARBON DIOXIDE (test 20 mmol/L 20-31 N Please note: New code = CO2) Reference Range Oct 2020 GLUCOSE (test code = 121 mg/dL 74-106 H Please note: New GLU) Reference Range Oct 2020 BLOOD UREA NITROGEN 89 mg/dL 9-23 H Please n ote: New (test code = BUN) Reference Range Oct 2020 GLOMERULAR 3 >60 L The estimated FILTRATION RATE glomerular f iltration (test code = GFR) rate is co mputed usingpatient ra ce, age (>18), sex, and serum creatinine. If anyof the needed data elements are mi ssing the Laboratory cannot compute an noe mation of the glomerul ar filtration rate . CREATININE (test 14.50 mg/dL 0.55-1.02 HH Critical Va lue code = CREAT) reported Aakash duarte Name:JOSE RAMON Last Name:CAYLA CANCHOLA READ BACK AND VERIFI Da P.LAB.CAR1, on 01/31/21, @ 1136.Please not e: New Reference Range Oct 2020 CALCIUM (test code = 8.2 mg/dL 8.7-10.4 L Please note: New CA) Reference Range Oct 2020 MA Digital Mammo Screen Calvin w mary [id number] 12:03:00BILATERAL DIGITAL SCREENING MAMMOGRAM 3D/2D WITH CAD: 12/31/2020LINICAL: /Routine. Current study wasevaluated with a Computer Aided Detection (CAD) system. COMPARISON:No prior exams were available forcomparison. TECHNIQUE: Digital Breast Tomosynthesis was performed and utilized forInterpretation. Current study was also evaluated with a Computer AidedDetection (CAD) system.FINDINGS:The tissue of both breasts is heterogeneously dense, which could obscuredetection of small masses. There are benign vascular calcifications in both breasts. No significant masses, calcifications, or other findings are seen in eitherbreast. IMPRESSION: BENIGNRECOMMENDATION:There is no mammographic evidence of malignancy. A 1 yearscreening mammogram is recommended.(01/01/2022) This exam was interpreted [id number] [facility]. David Feng M.D. eayenny/juan:12/31/2020 14:55:47 Enamel Pulverizer(s): Candida Da Silva [facility] sent: BI-RADS 1/2 Mammogram BI-RADS: 2 Benign--Read by: David Feng MDDictated Date/time: 12/31/20 14:55Electronically Signed by: David Feng MD 12/31/2113:55FINAL REPORTUT Physicians US Pelvis with Pelvis Transvaginal [id number] 11:23:00PROCEDURE INFORMATION:Exam: US Pelvis Complete, Transabdominal and US Pelvis, TransvaginalExam date and time: 12/31/2020 11:41 AMAge: 65 years oldClinical indication: Abscess of vulva; Additional info: /bartholin cyst, vulvarabscess; ()TECHNIQUE:Imaging protocol: Real-time transabdominal and transvaginal pelvic ultrasound(complete) with image documentation. Transvaginal imaging was used for betterevaluation of the endometrium, adnexa, and/or cervix.COMPARISON:PELVIS CTA 10/03/2019 8:38 AMFINDINGS: Limited exam due to bowel gasUterus/cervix: The uterus is not well visualized measuring 7.1 cm length and isanteflexed. The endometrial stripe is not visualized.Right adnexa: Right ovary not seen due to overlying bowel gas.Left adnexa: Left ovary not seen due to overlying bowel gas.Intraperitoneal space:No intraperitoneal fluid.Urinary bladder: The bladder is under distended.IMPRESSION: Limited exam1.Uterus is suboptimally visualized.2. The ovaries are not visualized.An MRI or CT with IV contrast can better evaluate for vulvar abscess orBartholin cyst.Bimal Esquivel MD On 12/31/2020 13:15:38; [id number]--Qjyi by: Bimal Esquivel MDDictated Date/time: 12/31/20 13:17Electronically Signed by: Bimal Esquivel MD 12/31/2112:17FINAL REPORTUT [id number] 18:03:00 Test Item Value Reference Range Interpretation Comments GLUBED (test code = GLUBED) 149 MG/DL 70-105 H Novel Coronavirus 2018 [id number] 14:10:00 Test Item Value Reference Range Interpretation Comments Novel Coronavirus Not Detected Not Detected Testing wa s performed 2019 Inhouse (test using the Aptima code = COVNONPUI) SARS-CoV-2 assay.This nucleic acid amplification t est was developed and itsperformance characteristics determined by [facility]. Nucleic acid amplification t ests include RT-PCR and TMA. This test has n ot been FDA cleared ora pproved. This test has b een authorized by [place] VAR[employer] under anEmergency Use Authorization ( EUA). This test is onlyauthorized for the duration of shiv e the declaration thatcircumstanc es exist justifying the authorization o f theemergency us e of in vitro diagnosti c tests for detection vnMETL-DhQ-5 vi chase and/or diagnosi s of COVID-19 infect ionunder section 564(b)( 1) of the Act, 21 U.S .C. 360bbb-3(b)(1), unless the authorizati on is terminated or revokedsooner.W hen diagnostic test ing is negative, the possibility of afalse negative result should be considered i n the contextof a pat ient's recent exposure s and the presence of clinical signs and sympt oms consistent with COVID-19. Anind ividual without symptom s of COVID-19 and wh o is notshedding DARREN S-CoV-2 virus would exp ect to have a negative (not detected) resul t in this assay.Perf ormed At: [facility] [id number] [place], [place] [id number] Jatinder Gibbs MD Ph:[phone] COMPREHENSIVE METABOLIC [id number] 17:12:00 Test Item Value Reference Range Interpretation Comments SODIUM (test code = 135 mmol/L 136-145 L Please n ote: New NA) Reference Range Oct 2020 POTASSIUM (test code 5.0 mmol/L 3.5-5.1 N = K) CHLORIDE (test code = 96 mmol/L 98-107 L Please note: New CL) Reference Range Oct 2020 CARBON DIOXIDE (test 26 mmol/L 20-31 N Please note: New code = CO2) Reference Range Oct 2020 GLUCOSE (test code = 125 mg/dL 74-106 H Please note: New GLU) Reference Range Oct 2020 BLOOD UREA NITROGEN 67 mg/dL 9-23 H Please n ote: New (test code = BUN) Reference Range Oct 2020 GLOMERULAR FILTRATION 5 >60 L The es timated RATE (test code = glomerular filtration GFR) rate is compute d usingpatient ra ce, age (>18), sex, and serum creatinine. If anyof the needed data elements are mi ssing the Laboratory cannot compute an noe mation of the glomerul ar filtration rate . CREATININE (test code 8.20 mg/dL 0.55-1.02 H Please note: New = CREAT) Reference Range Oct 2020 TOTAL PROTEIN (test 7.3 g/dL 5.7-8.2 N Please n ote: New code = PROT) Reference Range Oct 2020 ALBUMIN (test code = 4.7 g/dL 3.2-4.8 N Please note: New ALB) Reference Range Oct 2020 CALCIUM (test code = 9.4 mg/dL 8.7-10.4 N Please note: New CA) Reference Range Oct 2020 BILIRUBIN TOTAL (test 0.3 mg/dL 0.3-1.2 N Please note: New code = BILT) Reference Range Oct 2020 SGOT/AST (test code = 9 U/L <34 N Please note: New AST) Reference Range Oct 2020 SGPT/ALT (test code = 9 U/L 10-49 L Please note: New ALT) Reference Range Oct 2020 ALKALINE PHOSPHATASE 95 U/L 46-116 N Please note: New (test code = ALKP) Reference Range Oct 2020 PROTHROMBIN [id number] 16:34:00 Test Item Value Reference Range Interpretation Comments PROTHROMBIN TIME 12.4 SECONDS 10.3-12.9 N PATIENT (test code = PTP) INTERNATIONAL 1.09 INR UNIT 0.9-1.11 N The INR is us eful only NORMAL [...] 2.5-3.5recurren t systemic emboli sm. THROMBOPLASTIN TIME [id number] 16:34:00 Test Item Value Reference Range Interpretation Comments THROMBOPLASTIN TIME 27.1 SECONDS 23.8-34.8 N INTERPRE TATIVE PARTIAL (test code = DATA: erapeutic PTT) range: Unfractionated heparin:55 - 80 seconds Argatroban:1.5 to 3 times the basel ine PTT CBC W/AUTO [id number] 16:16:00 Test Item Value Reference Range Interpretation Comments WHITE BLOOD CELL (test code = 13.4 x10 3/uL 4.8-10.8 H WBC) RED BLOOD CELL (test code = 3.12 x10 6/uL 4.20-5.40 L RBC) HEMOGLOBIN (test code = HGB) 9.9 g/dL 12.0-16.0 L HEMATOCRIT (test code = HCT) 31.1 % 37.0-47.0 L MEAN CELL VOLUME (test code = 99.7 fL 81.0-99.0 H MCV) MEAN CELL HGB (test code = MCH) 31.7 pg 27-31 H MEAN CELL HGB CONCENTRATION 31.8 G/DL 33-36.5 L (test code = MCHC) RED CELL DISTRIBUTION WIDTH 13.7 % 12.9-16.9 N (test code = RDW) PLATELET COUNT (test code = 204 x10 3/uL 150-440 N PLT) MEAN PLATELET VOLUME (test code 10.8 fL 8.9-12.4 N = MPV) NEUTROPHIL % (test code = NT%) 72.3 % 42.2-75.2 N LYMPHOCYTE % (test code = LY%) 16.6 % 20.5-51.1 L MONOCYTE % (test code = MO%) 6.1 % 1.7-9.3 N EOSINOPHIL % (test code = EO%) 3.6 % 0.0-7.0 N BASOPHIL % (test code = BA%) 0.4 % 0-2.5 N NEUTROPHIL # (test code = NT#) 9.69 x10 3/uL 1.80-7.70 H LYMPHOCYTE # (test code = LY#) 2.22 x10 3/uL 1.00-4.80 N MONOCYTE # (test code = MO#) 0.82 x10 3/uL 0.00-0.80 H EOSINOPHIL # (test code = EO#) 0.48 x10 3/uL 0.00-0.45 H BASOPHIL # (test code = BA#) 0.06 x10 3/uL 0.0-0.20 N [O] Hemoglobin A1c (in office)2020-10-29 09:58:00 Test Item Value Reference Range Interpretation Comments HEMOGLOBIN A1c (test code = 4548-4) 6.9 ND PhysiciansGlucose (Point of Care In Office)2020-10-29 09:54:00 Test Item Value Reference Range Interpretation Comments Glucose POC Lifescan (test code = 130 Glucose POC Lifescan) [facility][QL] T4, [id number] 00:00:00 Test Item Value Reference Range Interpretation Comments T4, FREE (test 0.6 ng/dl 0.8-1.8 SPECIMEN RECE IVED DATE AND code = T4, FREE) TIME: [id number] [facility][QL] TSH, 3RD [id number] 00:00:00 Test Item Value Reference Range Interpretation Comments TSH; Above High 95.00 {MIU/L} 0.40-4.50 SPECIMEN RE CEIVED Threshold (test DATE AND SHIV E: code = 99360-5) [id number] ND PhysiciansXRAY Chest 2 views [id number] 14:38:00EXAM: XR CHEST 2 viewsDATE: 07/29/2020 14:37 CSTINDICATION: - D35.1 Benign neoplasm of parathyroidglandCOMPARISON: None.TECHNIQUE: AP and lateral view of the chest.IMPRESSION: Stable enlarged cardiomediastinal silhouette. Prominent central pulmonaryarteries suggestive of pulmonary arterial hypertension. Persistent prominenceof the right paratracheal stripe corresponds to cystic fluid attenuation massin the periaortic region, please refer to CT chest 11/20/2019. Mild rightinfrahilar and bibasilar opacities may represent atelectasis, aspiration orpneumonia. Tiny bilateral pleural effusions. Surgical clips over the rightupper abdominal quadrant. Lower thoracic spinal hardware and degenerativechangesin the thoracic spine.CONCLUSION:No significant change compared to the most recent radiograph, as describedabove. --Read by: Mali Rivas MDDictated Date/time: 07/29/20 14:57Electronically Signed by: Mali Rivas MD 07/29/2015:02FINAL REPORTUT PhysiciansGlucose (Point of Care In Office)2020-07-23 09:05:00 Test Item Value Reference Range Interpretation Comments Glucose POC Lifescan (test code = 158 A Glucose POC Lifescan) ND PhysiciansNM Parathyroid SPECT [id number] 10:55:00PROCEDURE INFORMATION:Exam: NM Parathyroid, Planar And SPECTExam date and time: 06/18/2020 10:58 AMAge: 65 years oldClinical indication: Benign neoplasm of parathyroid gland; Additional info:/d35.1 benign neoplasm of parathyroid gland, . HX of thyroidectomy; ()TECHNIQUE:Imaging protocol: Parathyroid planar imaging with tomographic SPECT.Radiopharmaceutical: 16.4 mCi Tc-99m Sestamibi, IV.Time of imaging post radiopharmaceutical administration: Immediate and 3 hoursdelayed anterior projection images are obtained. 3 plane SPECT images of theneck were also obtained after 3 hours.COMPARISON:PARATHYROID SPECT NM 11/21/2014 3:33 PMFINDINGS:Organs: Thyroidectomy. 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.Bimal Esquivel MD On 06/18/2020 17:18:00; [id number]--Vjtn by: Bimal Esquivel MDDictated Date/time: 06/18/20 17:18Electronically Signed by: Bimal Esquivel MD 06/18/2017:18FINAL REPORTUT Physicians BASIC METABOLIC [id number] 09:43:00 Test Item Value Reference Range Interpretation Comments SODIUM (test code = 139 MMOL/L 136-143 N NA) POTASSIUM (test code 3.8 MMOL/L 3.5-5.1 = K) CHLORIDE (test code = 98 MMOL/L 98-107 N CL) CARBON DIOXIDE (test 23 mmol/L 24-31 L code = CO2) GLUCOSE (test code = 113 mg/dL 70-104 H GLU) BLOOD UREA NITROGEN 57.9 MG/DL 7.0-21.0 H (test code = BUN) GLOMERULAR FILTRATION 5 >60 L The es timated RATE (test code = glomerular filtration GFR) rate is compute d usingpatient ra ce, age (>18), sex, and serum creatinine. If anyof the needed data elements are mi ssing the Laboratory cannot compute an noe mation of the glomerul ar filtration rate . CREATININE (test code 8.4 mg/dL 0.8-1.5 H = CREAT) CALCIUM (test code = 8.6 mg/dL 8.8-10.2 L CA) CBC W/AUTO [id number] 09:21:00 Test Item Value Reference Range Interpretation Comments WHITE BLOOD CELL (test code = 9.7 x10 3/uL 4.8-10.8 N WBC) RED BLOOD CELL (test code = 2.76 x10 6/uL 4.20-5.40 L RBC) HEMOGLOBIN (test code = HGB) 8.5 g/dL 14.5-20 L HEMATOCRIT (test code = HCT) 26.1 % 37.0-47.0 L MEAN CELL VOLUME (test code = 94.6 fL 81.0-99.0 N MCV) MEAN CELL HGB (test code = MCH) 30.8 pg 27-31 N MEAN CELL HGB CONCENTRATION 32.6 G/DL 33-36.5 L (test code = MCHC) RED CELL DISTRIBUTION WIDTH 17.6 % 12.9-16.9 H (test code = RDW) PLATELET COUNT (test code = 188 150-440 N PLT) MEAN PLATELET VOLUME (test code 11.3 fL 8.9-12.4 N = MPV) NEUTROPHIL % (test code = NT%) 67.8 % 42.2-75.2 N LYMPHOCYTE % (test code = LY%) 18.9 % 20.5-51.1 L MONOCYTE % (test code = MO%) 8.2 % 1.7-9.3 N EOSINOPHIL % (test code = EO%) 4.1 % 0.0-7.0 N BASOPHIL % (test code = BA%) 0.4 % 0-2.5 N NEUTROPHIL # (test code = NT#) 6.58 x10 3/uL 1.80-7.70 N LYMPHOCYTE # (test code = LY#) 1.84 x10 3/uL 1.00-4.80 N MONOCYTE # (test code = MO#) 0.80 x10 3/uL 0.00-0.80 N EOSINOPHIL # (test code = EO#) 0.40 x10 3/uL 0.00-0.45 N BASOPHIL # (test code = BA#) 0.04 x10 3/uL 0.0-0.20 N AB HEPATITIS B [id number] 10:16:00 Test Item Value Reference Range Interpretation Comments AB HEPATITIS B SURFACE (test code = REACTIVE NONREACTIVE A HBSAB) AG HEPATITIS B [id number] 10:14:00 Test Item Value Reference Range Interpretation Comments AG HEPATITIS B SURFACE (test NON REACTIVE NONREACTIVE code = HBSAG) AB HEPATITIS B [id number] 10:14:00 Test Item Value Reference Range Interpretation Comments AB HEPATITIS B CORE (test code = NONREACTIVE NONREACTIVE HBCAB) AB HEPATITIS [id number] 10:14:00 Test Item Value Reference Range Interpretation Comments AB HEPATITIS C (test code = NONREACTIVE NONREACTIVE HCVAB) AG HEPATITIS B [id number] 09:14:00 Test Item Value Reference Range Interpretation Comments AG HEPATITIS B SURFACE (test NON REACTIVE NONREACTIVE code = HBSAG) AB HEPATITIS B [id number] 09:14:00 Test Item Value Reference Range Interpretation Comments AB HEPATITIS B CORE (test code = HBCAB) NONREACTIVE AB HEPATITIS [id number] 09:14:00 Test Item Value Reference Range Interpretation Comments AB HEPATITIS C (test code = HCVAB) NONREACTIVE BASIC METABOLIC [id number] 08:38:00 Test Item Value Reference Range Interpretation Comments SODIUM (test code = 135 MMOL/L 136-143 L NA) POTASSIUM (test code 5.0 MMOL/L 3.5-5.1 N = K) CHLORIDE (test code 97 MMOL/L 98-107 L = CL) CARBON DIOXIDE (test 17 mmol/L 24-31 L code = CO2) GLUCOSE (test code = 122 mg/dL 70-104 H GLU) BLOOD UREA NITROGEN 116.2 MG/DL 7.0-21.0 H (test code = BUN) GLOMERULAR 3 >60 L The estimated FILTRATION RATE glomerular f iltration (test code = GFR) rate is co mputed usingpatient ra ce, age (>18), sex, and serum creatinine. If anyof the needed data elements are mi ssing the Laboratory cannot compute an noe mation of the glomerul ar filtration rate . CREATININE (test 13.0 mg/dL 0.8-1.5 Critical Va lue code = CREAT) reported toFir st Name:LA Last Name:PAULETTE LTS READ BACK AND VERIFIEDby ALEXANDRA WHITFIELD, on 06/05/20, @ 0837. CALCIUM (test code = 9.1 mg/dL 8.8-10.2 N CA) [id number] 08:38:00 Test Item Value Reference Range Interpretation Comments PHOSPHOROUS (test code 12.9 mg/dL 2.7-4.5 HH Criti fabián Value = PHOS) reported toFirs t Name:LA Last Name:PAULETTE LAMBERT READ BACK AND VERIFIEDby ALEXANDRA WHITFIELD, on 06/05/20, @ 0838. CBC W/AUTO [id number] 08:18:00 Test Item Value Reference Range Interpretation Comments WHITE BLOOD CELL (test code = 12.1 x10 3/uL 4.8-10.8 H WBC) RED BLOOD CELL (test code = 2.86 x10 6/uL 4.20-5.40 L RBC) HEMOGLOBIN (test code = HGB) 8.8 g/dL 14.5-20 L HEMATOCRIT (test code = HCT) 26.6 % 37.0-47.0 L MEAN CELL VOLUME (test code = 93.0 fL 81.0-99.0 N MCV) MEAN CELL HGB (test code = MCH) 30.8 pg 27-31 N MEAN CELL HGB CONCENTRATION 33.1 G/DL 33-36.5 N (test code = MCHC) RED CELL DISTRIBUTION WIDTH 17.3 % 12.9-16.9 H (test code = RDW) PLATELET COUNT (test code = 189 150-440 N PLT) MEAN PLATELET VOLUME (test code 11.2 fL 8.9-12.4 N = MPV) NEUTROPHIL % (test code = NT%) 78.5 % 42.2-75.2 H LYMPHOCYTE % (test code = LY%) 11.1 % 20.5-51.1 L MONOCYTE % (test code = MO%) 6.3 % 1.7-9.3 N EOSINOPHIL % (test code = EO%) 3.0 % 0.0-7.0 N BASOPHIL % (test code = BA%) 0.3 % 0-2.5 N NEUTROPHIL # (test code = NT#) 9.52 x10 3/uL 1.80-7.70 H LYMPHOCYTE # (test code = LY#) 1.34 x10 3/uL 1.00-4.80 N MONOCYTE # (test code = MO#) 0.76 x10 3/uL 0.00-0.80 N EOSINOPHIL # (test code = EO#) 0.36 x10 3/uL 0.00-0.45 N BASOPHIL # (test code = BA#) 0.04 x10 3/uL 0.0-0.20 N [id number] 07:35:00 Test Item Value Reference Range Interpretation Comments GLUBED (test code = GLUBED) 120 MG/DL 70-105 H BASIC METABOLIC [id number] 20:29:00 Test Item Value Reference Range Interpretation Comments SODIUM (test code = 139 MMOL/L 136-143 N NA) POTASSIUM (test code 5.2 MMOL/L 3.5-5.1 H = K) CHLORIDE (test code 95 MMOL/L 98-107 L = CL) CARBON DIOXIDE (test 13 mmol/L 24-31 L code = CO2) GLUCOSE (test code = 102 mg/dL 70-104 N GLU) BLOOD UREA NITROGEN 108.2 MG/DL 7.0-21.0 H (test code = BUN) GLOMERULAR 3 >60 L The estimated FILTRATION RATE glomerular f iltration (test code = GFR) rate is co mputed usingpatient ra ce, age (>18), sex, and serum creatinine. If anyof the needed data elements are mi ssing the Laboratory cannot compute an noe mation of the glomerul ar filtration rate . CREATININE (test 12.2 mg/dL 0.8-1.5 HH Critical Va lue code = CREAT) reported toFir st Name:ALISSON Pascual ronaldo Name:CHUY INMANRESULTS READ BACK AND VERIFIEDby P.LAB.RS, on , @ 2028. CALCIUM (test code = 8.9 mg/dL 8.8-10.2 N CA) [id number] 16:34:00 Test Item Value Reference Range Interpretation Comments POTASSIUM (test code = K) 5.2 MMOL/L 3.5-5.1 H COVID 19 Asymptomatic IH [id number] 16:01:00 Test Item Value Reference Range Interpretation Comments COVID 19 Asymptomatic IH AG (test NEGATIVE NEGATIVE code = COVNONPUIAG) [id number] 15:58:00 Test Item Value Reference Range Interpretation Comments GLUBED (test code = GLUBED) 100 MG/DL 70-105 N [QL] T4, [id number] 11:15:00 Test Item Value Reference Range Interpretation Comments T4, FREE (test 1.3 ng/dl 0.8-1.8 N SPECIMEN RECE IVED DATE AND code = T4, FREE) TIME: [id number] [facility][QL] TSH, 3RD [id number] 11:15:00 Test Item Value Reference Range Interpretation Comments TSH; Normal (test 3.44 {MIU/L} 0.40-4.50 N SPECIMEN R ECEIVED DATE code = 37291-8) AND TIME: [facility][O] Hemoglobin A1c (in office)2020-03-05 10:57:00 Test Item Value Reference Range Interpretation Comments HEMOGLOBIN A1c (test code = 4548-4) 5.5 [facility] ([facility] In Office)2020-03-05 10:40:00 Test Item Value Reference Range Interpretation Comments Glucose POC Lif[facility] (test code = 106 A Glucose POC Lif[facility]) [facility]] [facility], 3RD [id number] 11:28:01 Test Item Value Reference Range Interpretation Comments TSH; Above High Threshold 12.500 {uIU/ml} 0.360-3.740 (test code = 20609-7) [facility]] [facility], 3RD [id number] 18:28:01 Test Item Value Reference Range Interpretation Comments TSH; Above High Threshold 7.540 {uIU/ml} 0.360-3.740 (test code = 34640-4) [facility]iciansCOMPREHENSIVE METABOLIC [id number] 08:10:00 Test Item Value Reference Range Interpretation [...] 32-104 N (test code = ALKP) PROTHROMBIN [id number] 08:01:00 Test Item Value Reference Range Interpretation [...] 2.5-3.5recurren t systemic emboli sm. THROMBOPLASTIN TIME [id number] 08:01:00 Test Item Value Reference Range Interpretation Comments THROMBOPLASTIN TIME 32.1 SECONDS 26.0-35.9 N INTERPRE TATIVE PARTIAL (test code = DATA: erapeutic PTT) range: Unfractionated heparin:47 - 71 seconds Argatroban:1.5 to 3 times the basel ine PTT COMPREHENSIVE METABOLIC [id number] 07:55:00 Test Item Value Reference Range Interpretation [...] (test code = ALKP) HGBA1C - GLYCOSYLATED [id number] 07:52:00 Test Item Value Reference Range Interpretation [...] be low 7% meet the goalof the [place] [employer]. No rmal: <5.7Pre-Diabete s: 5.7 6.4Diabetic: >6.5Therapeutic goal for glycemic contro l: <7.0 CBC W/AUTO [id number] 07:45:00 Test Item Value Reference Range Interpretation [...]
[2022-03-08 17:40] LABS: Absolute Lymphocytes (CBC) 0.9 K/uL (0.7-4.9); Hematocrit 31.8 % (36.0-45.0); Lymphocytes % 9.8 % (15.3-44.8); MPV 8.7 fL (7.6-11.3); RBC Red Blood Cell Count 3.38 M/uL (3.86-4.86)
[2022-03-08 17:58] LABS: Albumin 3.8 g/dL (3.4-5.0); Bilirubin Total 0.5 mg/dL (0.2-1.0); Potassium 4.5 mmol/L (3.5-5.1); Protein, Total 7.4 g/dL (6.4-8.2)
--- NOTE | 2022-03-08 19:25 | EDPHYS ---
Physician Documentation [facility] Name: Danielle Yan Age: 66 yrs Sex: Female : 1955 Arrival Date: 03/08/2022 Time: 17:12 Bed 5 Private MD: Nitish Borrego ED Physician Ruthie Bo HPI: 03/08 17:46 This 66 yrs old Female presents to ER via Wheelchair with complaints of missed dialysis pm1 x3, needs labs. 17:46 Onset: The symptoms/episode began/occurred 1 week(s) ago. Associated signs and pm1 symptoms: Pertinent negatives: chest pain, fever, shortness of breath. The patient has not recently seen a physician. 66-year-old patient presenting to ER with complaints of missed dialysis for 1 week, 3 sessions, and she needs labs to return to the dialysis center. Patient intends on going back to dialysis treatment tomorrow. Patient is Wednesday for dialysis treatment. Patient reports missing dialysis due to her diarrhea for the past 1 week, also reports decreased appetite. Patient reports that diarrhea is normal for her. Negative for abdominal pain or fever. Historical: - Allergies: 17:28 CEPHALOSPORINS; ll1 - Home Meds: 18:32 allopurinol 100 mg Oral tab 1 tab once daily [Active]; apixaban Oral [Active]; Baclofen goss Oral [Active]; Cartia XT 240 mg Oral cp24 1 cap once daily [Active]; clonazepam 0.5 mg Oral tab [Active]; colchicine-probenecid 0.5-500 mg Oral tab [Active]; escitalopram oxalate 20 mg Oral tab 1 tab once daily [Active]; gabapentin 100 mg Oral cap [Active]; levothyroxine 88 mcg oral cap [Active]; methocarbamol 500 mg Oral tab [Active]; midodrine 10 mg Oral tab [Active]; parsabiv 2.5 mg 3 x week post dialysis [Active]; sevelamer HCl Oral [Active]; Tradjenta 5 mg Oral tab 1 tab once daily [Active]; Xanax 0.5 mg Oral tab 1 tab twice a day [Active]; - PMHx: 17:22 Diabetes - NIDDM; Dialysis; Gout; Hypothyroidism; Hypertension; PERIPHERAL NEUROPATHY; ss factor 5 leiden; Renal Disease; - PSHx: 17:28 pacemaker; ll1 - Immunization history:: Client reports receiving the 2nd dose of the Covid vaccine. - Social history:: Smoking status: Patient denies any tobacco usage or history of. ROS: 17:46 Constitutional: Negative for fever, chills, and weight loss, Cardiovascular: Negative pm1 for chest pain, palpitations, and edema, Respiratory: Negative for shortness of breath, cough, wheezing, and pleuritic chest pain. 17:46 Back: Negative for injury and pain. 17:46 MS/Extremity: Negative for injury and deformity, Skin: Negative for injury, rash, and discoloration, Neuro: Negative for headache, weakness, numbness, tingling, and seizure. 17:46 Abdomen/GI: Positive for nausea, diarrhea, Negative for abdominal pain, vomiting. 17:46 All other systems are negative. Exam: 17:46 Constitutional: This is a well developed, well nourished patient who is awake, alert, pm1 and in no acute distress. Head/Face: Normocephalic, atraumatic. 17:46 Back: No spinal tenderness. No costovertebral tenderness. Full range of motion. Skin: Warm, dry with normal turgor. Normal color with no rashes, no lesions, and no evidence of cellulitis. MS/ Extremity: Pulses equal, no cyanosis. Neurovascular intact. Full, normal range of motion. 17:46 Cardiovascular: Exam negative for acute changes, Rate: normal, Rhythm: regular, Pulses: no pulse deficits are appreciated. 17:46 Respiratory: Exam negative for acute changes, respiratory distress, shortness of breath. 17:46 Abdomen/GI: Exam negative for acute changes, Palpation: abdomen is soft and non-tender, in all quadrants. 17:46 Neuro: Exam negative for acute changes, Orientation: is normal, Mentation: is normal, Motor: is normal, moves all fours. Vital Signs: 17:28 BP 157 / 120; Pulse 75; Resp 20; Temp 97.9; Pulse Ox 99% ; Weight 73.94 kg; Height 5 ll1 ft. 0 in. (152.40 cm); 18:11 BP 82 / 59; Pulse 66; Resp 17; Pulse Ox 100% ; goss 18:11 BP 83 / 60; Pulse 68; Resp 17; Pulse Ox 100% on R/A; goss 19:35 BP 92 / 62; Pulse 66; Resp 18 S; Pulse Ox 100% on R/A; as6 17:28 Body Mass Index 31.83 (73.94 kg, 152.40 cm) ll1 MDM: 17:20 Patient medically screened. pm1 18:12 ED course: Patient refused CT abdomen/pelvis. Reports diarrhea is at her baseline. pm1 18:22 Data reviewed: vital signs. Data interpreted: Pulse oximetry: on room air is 99 %. pm1 Interpretation: normal. Counseling: I had a detailed discussion with the patient and/or guardian regarding: the historical points, exam findings, and any diagnostic results supporting the discharge/admit diagnosis, lab results, the need for further work-up and treatment in the hospital, dialysis treatment due to uremia. Patient wants to go home instead to get dialysis since she has a seat at 0930 tomorrow. 18:32 Physician consultation: Nitish Borrego DO regarding consult, patient's condition, and pm1 will see patient Patient at dialysis center tomorrow since she is not wanting to stay in the hospital today. would like medications started, Sodium bicarbonate 650 mg x 2 PO. 19:42 ED course: Patient has not been given sodium bicarbonate due to lack of availability in pm1 the ER and pending transfer of the medication from the floor to the ER. Patient's spouse would like to have her IV removed and to go home now. 03/08 17:26 Order name: CBC with Diff; Complete Time: 18:14 pm1 03/08 17:26 Order name: CMP; Complete Time: 18:14 pm1 03/08 17:27 Order name: Flu; Complete Time: 19:03 pm1 03/08 17:27 Order name: COVID-19 SARS RT PCR (Document "Date of Onset" if Symptomatic); Complete pm1 Time: 19:34 03/08 17:26 Order name: IV Saline Lock; Complete Time: 19:08 pm1 03/08 17:43 Order name: EKG; Complete Time: 17:44 pm1 03/08 17:43 Order name: EKG - Nurse/Tech; Complete Time: 18:53 pm1 Administered Medications: 19:51 Not Given (Patient Refused): Sodium Bicarbonate 1300 mg PO once kd3 Disposition Summary: 03/08/22 19:24 Discharge Ordered Location: Home pm1 Problem: new pm1 Symptoms: have improved pm1 Condition: Fair pm1 Diagnosis - Chronic kidney disease, stage 5 - uremia pm1 Followup: pm1 - With: Emergency Department - When: As needed - Reason: Worsening of condition Followup: pm1 - With: Nitish Borrego DO - When: Tomorrow - Reason: Recheck today's complaints, Continuance of care, Re-evaluation by your physician Discharge Instructions: - Discharge Summary Sheet pm1 - Uremia pm1 Forms: - Medication Reconciliation Form pm1 - Thank You Letter pm1 - Antibiotic Education pm1 - Prescription Opioid Use pm1 Signatures: Dispatcher [employer] EDMS Mamie Tripathi RN RN Jayme Galvin NP [employer] pm1 Brody Tejeda RN RN ll1 Latesha Chavez RN RN ha Doucette, Kyli RN kd3
--- NOTE | 2022-03-08 19:25 | ER ---
Nurse's Notes [facility] Name: Danielle Yan Age: 66 yrs Sex: Female : 1955 Arrival Date: 03/08/2022 Time: 17:12 Bed 5 Private MD: Nitish Borrego Diagnosis: Chronic kidney disease, stage 5-uremia Presentation: 03/08 17:28 Chief complaint: Patient states: Missed dialysis for 3 sessions. Has diarrhea, nausea, ll1 and weakness. Coronavirus screen: Vaccine status: Patient reports receiving the 2nd dose of the covid vaccine. Client denies travel out of the [place] in the last 14 days. diarrhea, fatigue, nausea, Client presents with at least one sign or symptom that may indicate coronavirus-19. Standard/surgical mask placed on the client. Ebola Screen: Patient denies travel to an Ebola-affected area in the 21 days before illness onset. Initial Sepsis Screen: Does the patient meet any 2 criteria? No. Patient's initial sepsis screen is negative. Does the patient have a suspected source of infection? No. Patient's initial sepsis screen is negative. Risk Assessment: Do you want to hurt yourself or someone else? Patient reports no desire to harm self or others. Onset of symptoms was March 01, 2022. 17:28 Method Of Arrival: Wheelchair ll1 17:28 Acuity: [place] 3 ll1 Triage Assessment: 17:30 General: Appears uncomfortable, ill, Behavior is cooperative, appropriate for age. ll1 Neuro: Reports weakness. GI: Reports diarrhea, nausea. 18:32 Pain: Denies pain. goss Historical: - Allergies: 17:28 CEPHALOSPORINS; ll1 - Home Meds: 18:32 allopurinol 100 mg Oral tab 1 tab once daily [Active]; apixaban Oral [Active]; Baclofen goss Oral [Active]; Cartia XT 240 mg Oral cp24 1 cap once daily [Active]; clonazepam 0.5 mg Oral tab [Active]; colchicine-probenecid 0.5-500 mg Oral tab [Active]; escitalopram oxalate 20 mg Oral tab 1 tab once daily [Active]; gabapentin 100 mg Oral cap [Active]; levothyroxine 88 mcg oral cap [Active]; methocarbamol 500 mg Oral tab [Active]; midodrine 10 mg Oral tab [Active]; parsabiv 2.5 mg 3 x week post dialysis [Active]; sevelamer HCl Oral [Active]; Tradjenta 5 mg Oral tab 1 tab once daily [Active]; Xanax 0.5 mg Oral tab 1 tab twice a day [Active]; - PMHx: 17:22 Diabetes - NIDDM; Dialysis; Gout; Hypothyroidism; Hypertension; PERIPHERAL NEUROPATHY; ss factor 5 leiden; Renal Disease; - PSHx: 17:28 pacemaker; ll1 - Immunization history:: Client reports receiving the 2nd dose of the Covid vaccine. - Social history:: Smoking status: Patient denies any tobacco usage or history of. Screenin:31 Abuse screen: Denies threats or abuse. Denies injuries from another. Nutritional goss screening: No deficits noted. Tuberculosis screening: No symptoms or risk factors identified. Fall Risk None identified. Vital Signs: 17:28 BP 157 / 120; Pulse 75; Resp 20; Temp 97.9; Pulse Ox 99% ; Weight 73.94 kg; Height 5 ll1 ft. 0 in. (152.40 cm); 18:11 BP 82 / 59; Pulse 66; Resp 17; Pulse Ox 100% ; goss 18:11 BP 83 / 60; Pulse 68; Resp 17; Pulse Ox 100% on R/A; goss 19:35 BP 92 / 62; Pulse 66; Resp 18 S; Pulse Ox 100% on R/A; as6 17:28 Body Mass Index 31.83 (73.94 kg, 152.40 cm) ll1 ED Course: 17:12 Patient arrived in ED. as 17:13 Nitish Borrego DO is Private Physician. as 17:18 Latesha Chavez, RN is Primary Nurse. goss 17:18 Jayme Caldwell NP is PHCP. pm1 17:18 Ruthie Bo MD is Attending Physician. pm1 17:28 Arm band placed on Patient placed in an exam room, on a stretcher. ll1 17:30 Triage completed. ll1 18:31 Patient has correct armband on for positive identification. Bed in low position. goss 18:32 No provider procedures requiring assistance completed. Inserted saline lock: 20 gauge goss in left antecubital area, using aseptic technique. 19:10 Primary Nurse role handed off by Latesha Chavez RN kd3 19:10 Nikki Voss, RN is Primary Nurse. kd3 19:23 Nitish Borrego DO is Referral Physician. pm1 19:50 IV discontinued, intact, bleeding controlled, No redness/swelling at site. Pressure kd3 dressing applied. Administered Medications: 19:51 Not Given (Patient Refused): Sodium Bicarbonate 1300 mg PO once kd3 Medication: 19:36 VIS not applicable for this client. as6 Outcome: 19:24 Discharge ordered by MD. pm1 19:50 Discharged to home via wheelchair. kd3 19:50 Condition: stable 19:50 Condition: stable 19:50 Discharge instructions given to patient, family, Instructed on discharge instructions, follow up and referral plans. 19:51 Patient left the ED. kd3 Signatures: Radha Phillips Shelby, RN RN Jayme Caldwell NP SENIOR COURTROOM CLERK pm1 Brody Tejeda RN RN 1 Luis Eduardo Bray RN RN as6 Nikki Voss RN RN kd3 Latesha Chavez RN RN goss Corrections: (The following items were deleted from the chart) 18:34 18:30 BP 82 / 59; Pulse 66bpm; Resp 17bpm; Pulse Ox 100%; goss goss
[2022-03-08] MEDS ORDERED: SODIUM BICARB 325 MG TAB PO ONE (19:51)
[2022-03-08 20:07] VITALS: TEMP 97.9
[2022-03-08 20:09] VITALS: O2SAT 100
[2022-03-08 20:15] VITALS: BP 92/62
--- NOTE | 2022-03-09 11:51 | EKG ---
Test Date: 2022-03-08 Test Time: 18:48:38 Lockstitch Cup Setter: NATHANIEL MEASUREMENT RESULTS: Intervals: Rate: 63 RI: 170 QRSD: 178 QT: 536 QTc: 548 Albia: P: 61 RI: 170 QRS: -89 T: 86 INTERPRETIVE STATEMENTS: Normal sinus rhythm Left axis deviation Right bundle branch block Inferior infarct, age undetermined Anterolateral infarct, age undetermined Abnormal ECG Compared to ECG 12/11/2019 15:34:22 Left-axis deviation now present Right bundle-branch block now present Atrial premature complex(es) no longer present Myocardial infarct finding still present Electronically Signed On 03-09-22 11:50:08 CDT by Osman Gaviria
== END 2022-03-08 19:51 | disposition home or self-care (01) ==
LOC: ER 17:08
DX: E11.22 Type 2 diabetes mellitus with diabetic chronic kidney disease (principal); I12.0 Hypertensive chronic kidney disease with stage 5 chronic kidney disease or end stage renal disease; N18.5 Chronic kidney disease, stage 5; Z99.2 Dependence on renal dialysis; Z20.822 Contact with and (suspected) exposure to COVID-19; Z95.0 Presence of cardiac pacemaker; Z88.1 Allergy status to other antibiotic agents
CPT/HCPCS: 93005; 85025; 36415; 80053; 87804 ×2; U0003

== ENCOUNTER 2022-06-18 13:33 | Inpatient (IN) | payer OTHER ==
--- OUTSIDE RECORDS SUMMARY | 2022-06-18 13:43 | XMS REPORT | Continuity of Care Document ---
:1955 Author Organization [facility] t Address [address] [place] [address] Care Team Providers Name Role Phone Humble Boyle MD Primary Care Physician ARMEN BULL Attending Clinician Unavailable Justice Marsh Attending Clinician Unavailable ARMEN BULL Attending Clinician Unavailable KANDACE SANTOS Attending Clinician Unavailable PAULO DOUGHERTY Attending Clinician Unavailable HUMBLE BOYLE Attending Clinician Unavailable RIZWAN MCHUGH Attending Clinician Unavailable NI HAMMOND NATASHA Attending Clinician Unavailable [id number] Attending Clinician Unavailable REYES QUINTERO Attending Clinician Unavailable JERSEY CADR Attending Clinician Unavailable DAVIS STEEL Attending Clinician Unavailable Zac Stoner RN Attending Clinician Unavailable Lanre Barlow Attending Clinician LANRE BARLOW Attending Clinician Unavailable Tammi Giraldo RN Attending Clinician Unavailable PJ DONAHUE Attending Clinician Unavailable CLIFFORD ELIZABETH Attending Clinician Unavailable DALE NOLASCO Attending Clinician Unavailable BILL ANN Attending Clinician Unavailable BRENDAN CARRASCO Attending Clinician Unavailable RHETT MCBRIDE Attending Clinician Unavailable ALLAN VAUGHN Attending Clinician Unavailable ELVIRA ANGLIN Attending Clinician Unavailable Kandace Zarate Attending Clinician Unavailable Jazmine Noble Attending Clinician Unavailable Morena Sun MD Attending Clinician See Carr DO Attending Clinician Juventino Girard MD Attending Clinician Grabiel Gould MD Attending Clinician VASCULAR, CARLOTTA Attending Clinician Unavailable GRABIEL GOULD M.D. Attending Clinician Unavailable TEA STEVEN Attending Clinician Unavailable Jersey Card Attending Clinician JEAN CARIAS Attending Clinician Unavailable JERSEY CARD M.D. Attending Clinician Unavailable HUMBLE BOYLE M.D. Attending Clinician Unavailable REYES QUINTERO M.D. Attending Clinician Unavailable RIZWAN MCHUGH M.D. Attending Clinician Unavailable Davis Steel Attending Clinician DAVIS STEEL M.D. Attending Clinician Unavailable Russ Elliott Attending Clinician RUSS ELLIOTT Attending Clinician Unavailable KASH REBOLLAR M.D. Attending Clinician Unavailable JUSTICE MARSH M.D. Attending Clinician UnavailDORINDA Hardy M.D. Attending Clinician Unavailable Dorinda Silva Attending Clinician DORINDA SILVA Attending Clinician Unavailable PAULO DOUGHERTY M.D. Attending Clinician Unavailable Ulises Beatty Jr Attending Clinician ULISES BEATTY Attending Clinician Unavailable LIANET LOUIS M.D. Attending Clinician Unavailable Justice Marsh Attending Clinician FANTASMA MANZANO M.D. Attending Clinician Unavailable VASCULAR, MHMP Attending Clinician Unavailable Paulo Dougherty Attending Clinician Marlys Sainz Attending Clinician MARLYS SAINZ M.D. Attending Clinician Unavailable LIVAN MACIEL M.D. Attending Clinician Unavailable Esteban Petersen Jr Attending Clinician ESTEBAN PETERSEN M.D. Attending Clinician Unavailable Suraj Estes Attending Clinician VASCULAR, SURGERY Attending Clinician Unavailable ROSELYN ANN M.D. Attending Clinician Unavailable RADHA HOLDEN M.D. Attending Clinician Unavailable Lianet Louis Attending Clinician GENERAL, SERVICE Attending Clinician Unavailable MED PROVIDER, TCM Attending Clinician Unavailable Patrice Messer Attending Clinician Ranjan Glez M.D. Attending Clinician Unavailable Garret Jones Attending Clinician GARRET JONES M.D. Attending Clinician Unavailable Prince Cindi Ariza Attending Clinician MARYBETH DAVID M.D. Attending Clinician Unavailable ADEEL DAVIDSON APRN Attending Clinician Unavailable Marybeth David Attending Clinician Riaz Galvan Attending Clinician Dio Lockett Attending Clinician DIO LOCKETT M.D. Attending Clinician Unavailable Laine Lynn Jr Attending Clinician FEDERICO CASTRO M.D. Attending Clinician Unavailable Kevin Galvez Attending Clinician Angie Angulo Attending Clinician Yuly Oliver Attending Clinician Arnaldo Torres Attending Clinician Reena Mckeon Attending Clinician Cirilo Licona Attending Clinician Frida Kumari Attending Clinician Justice Marsh Admitting Clinician Unavailable NI HAMMOND NATASHA Admitting Clinician Unavailable [id number] Admitting Clinician Unavailable Humble Boyle Admitting Clinician Unavailable INES BOWLES Admitting Clinician Unavailable Kandace Zarate Admitting Clinician Unavailable JUVENTINO GIRARD Admitting Clinician Unavailable Davis Steel Admitting Clinician DAVIS STEEL Admitting Clinician Unavailable Paulo Dougherty Admitting Clinician PAULO DOUGHERTY Admitting Clinician Unavailable Ulises Beatty Jr Admitting Clinician ULISES BEATTY Admitting Clinician Unavailable Justice Marsh Admitting Clinician Esteban Petersen Jr Admitting Clinician Trevor Hogan Admitting Clinician Robert Salter Admitting Clinician Dorinda Silva Admitting Clinician Kevin Galvez Admitting Clinician Yuly Oliver Admitting Clinician Cirilo Licona Admitting Clinician Payers Payer Name Policy Type Policy Number Effective Date Expiration Date S wendy MEDICARE PART A [id number] 2011 AND B 00:00:00 [facility] [id number] [facility] [id number] Problems Condition Condition Condition Status Onset Resolution Last Treating Co mments Source Name Details Category Date Date Treatment Clinician Date 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[facility] episode of episode of 720 [facility] al[facility] 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:00: major major 00 depressive depressive disorder disorder Morbid Morbid Disease Active [facility] (severe) (severe) 7 Health obesity obesity 00:00: due to due to 00 excess excess calories calories Secondary Secondary Disease Active UT hyperparat hyperparat 7-20 He alth hyroidism hyroidism 00:00: 00 Severe Severe Disease Active [facility] aortic aortic 7 Health stenosis stenosis 00:00: 00 Severe Severe Disease Active [facility] mitral mitral 719 Health valve valve 00:00: stenosis stenosis 00 Moderate Moderate Disease Active UT tricuspid tricuspid 04-07 Heal th regurgitat regurgitat 00:00: ion ion 00 Severe Severe Disease Active [facility] pulmonary pulmonary 04-07 Heal th hypertensi hypertensi 00:00: on on 00 ESRD (end ESRD (end Disease Active UT stage stage 7-19 Health renal renal 00:00: disease) disease) 00 on on dialysis dialysis Atrial Atrial Disease Active UT fibrillati fibrillati 5-26 He alth on on 00:00: 00 Nonrheumat Nonrheumat Disease Active 2020-09 M ethodi [...] Disease Active 2020-09 M ethodi hyroidism hyroidism 0-20 st 00:00: Hospita 00 l Postoperat Postoperat Disease Active M ethodi shine shine 6-[address] st hypothyroi hypothyroi 00:00: Ho spita dism dism 00 l Nonrheumat Nonrheumat Disease Active M ethodi ic aortic ic aortic 6-05 st valve valve 00:00: Hospita stenosis stenosis 00 l LBBB (left LBBB (left Disease Active M ethodi bundle bundle 6-05 st branch branch 00:00: Hospita block) block) 00 l Hypotensio Hypotensio Disease Active M ethodi n n 6-04 st 00:00: Hospita 00 l ESRD (end ESRD (end Disease Active [facility] stage stage 6-04 st renal renal 00:00: Hospita disease) disease) 00 l Abscess of Abscess of Disease Active U T vulva vulva 04 Health 00:00: 00 Chronic Chronic Disease Active UT diastolic diastolic 01-29 heart heart 00:00: failure failure 00 Anxiety Anxiety Disease Active [facility] disorder [...] disease Factor V Factor V Disease Active UT Leiden Leiden 03-22 Health mutation mutation 00:00: 00 History of History of Disease Active M ethodi right right 03-22 st hemicolect hemicolect [place]:[facility]: [place] [facility] [place] ents Source Name Type Date Date Clinician Nsaids Allergy Active UT to 02-12 Health substanc 00:00: e 00 Cephalos Allergy Active Itching 2020-09 Hives UT porins to 0-20 Health substanc 00:00: e 00 Cephalos DA Active MO 2020-09 [facility] porins [facility]: [facility] 00 are [facility] Cephalos DA Active MO ITCHING 2020-09 [facility] porins 0-20 [place] 00:00: [facility]c 00 are [facility] Cefazoli Propensi Active Itching Hives UT n ty to 02-21 Health adverse 00:00: reaction 00 s Cefazoli Propensi Active Itching Metho di n ty to 02-21 st adverse 00:00: Hospita reaction 00 l s to drug No Known DA Active U [facility] Allergie 04-26 [facility] 00:00: [facility]c 00 are [facility] No Known DA Active U [facility] Allergie 04-26 [facility] 00:00: [facility] 00 are [facility] Family History Family Member Diagnosis Comments Start Date Stop Date Source Child Family history of [facility] thyroid disease Sibling Family history of [facility] chronic kidney disease Mother Family history of [facility] chronic kidney disease Mother Family history of [facility] type 2 diabetes mellitus Unknown Family Family history of Other [place] [facility] Member suicide Unknown Family Family history of Other [place] [facility] Member Substance abuse Sister Family history of [facility] Factor 5 Leiden mutation, heterozygous Natural mother Diabetes [facility] Natural mother Hy[facility] Social History Social Habit Start Date Stop Date Quantity Comments Source History SDOH [facility] St[facility] Dr[facility] Hospit al History [facility] Exposure to 2022-05-01 2022-05-11 Not sure [place] [facility] SARS-CoV-2 (event) 00:00:00 14:20:00 Tobacco use and 2021-07-09 2021-07-09 Never used [facility] 00:00:00 00:00:00 Hospital Alcohol intake 2021-07-09 2021-07-09 Lifetime [facility] 00:00:00 00:00:00 non-drinker Hospital (finding) History SDOH 2021-02-21 2021-02-21 1 [facility] Frequency 00:00:00 00:00:00 Hospita l Cigarette 2021-01-21 2021-01-21 [place] [facility] pack-years 00:00:00 00:00:00 Sex [birth year] [facility] 00:[facility]00 [facility] Smoking Status Start Date Stop Date Source Never smoker [facility] Medications Ordered Filled Start Stop Current Ordering Indication Dosage Frequency Signature Comments Components Source Medication Medication Date Date Medication? Clinician (SIG) Name Name escitalopra Yes [id number] 20mg QD Take 1 UT m (Lexapro) 9-19 tablet (20 He alth 20 MG 00:00: mg total) tablet 00 by mouth 1 (one) time each day. gabapentin 0 Yes [id number] 200mg Q.5D Take 2 UT (Neurontin) 9-19 capsules Heal th 100 MG 00:00: (200 mg capsule 00 total) by mouth in the morning and 2 capsules (200 mg total) in the evening. clonazePAM 0 Yes [id number] .5mg Q.5D Take 1 UT (KlonoPIN) -19 tablet Health 0.5 MG 00:00: (0.5 mg disintegrat 00 total) by ing tablet mouth in the morning and 1 tablet (0.5 mg total) in the evening. PLACE 1 TABLET ON TONGUE AND ALLOW TO DISSOLVE TWICE DAILY NEEDED. clonazePAM Yes [id number] 1mg Q.5D Take 1 UT (KlonoPIN) 9-19 tablet (1 Heal th 1 MG 00:00: mg total) disintegrat 00 by mouth ing tablet in the morning and 1 tablet (1 mg total) in the evening. DISSOLVE IN MOUTH TWICE A DAY. QUEtiapine 2021- Yes [id number] 25mg Q.5D Take 1 UT (SEROquel) 06-08 10-20 tablet (25 He alth 25 MG 00:00: 04:59 mg total) tablet 00 :00 by mouth 2 (two) times a day if needed (anxiety). allopurinol Yes UT (Zyloprim) 05-11 Health 100 MG 14:28: tablet 29 allopurinol 0 Yes UT (Zyloprim) 05-11 Health 100 MG 14:28: tablet 29 DULoxetine 2022- Yes [id number] 30mg Take 1 UT (Cymbalta) 05-11- capsule Healt h [address] 00:00: 05:59 (30 mg capsule 00 :00 total) by mouth every night. Do not crush or chew. allopurinol 2021-0 Yes UT (Zyloprim) 7-18 Health 100 MG 14:55: tablet 22 allopurinol 2021-0 Yes UT (Zyloprim) 718 Health 100 MG 14:55: tablet 22 allopurinol 2021-0 Yes UT (Zyloprim) 7-18 Health 100 MG 14:55: tablet 22 midodrine 2021- No TAKE 1 UT (Proamatine 7-18 07-18 TABLET 2 Hea lth ) 5 MG 14:55: 00:00 TIMES tablet 22 :00 DAILY. gabapentin 2021-0 2021- No [id number] TAKE 1 UT (Neurontin) 03-27- CAPSULE IN H ealth 100 MG 00:00: 00:00 THE capsule 00 :00 MORNING AND 2 CAPSULES IN THE EVENING midodrine 2021-0 Yes TAKE 1 UT (Proamatine 5-26 TABLET 2 Heal th ) 5 MG 16:37: TIMES tablet 06 DAILY. midodrine 2021-0 Yes TAKE 1 UT (Proamatine 5-26 TABLET 2 Heal th ) 5 MG 16:37: TIMES tablet 06 DAILY. allopurinol 2021-0 Yes UT (Zyloprim) 5-26 Health 100 MG 16:36: tablet 02 allopurinol 2021-0 Yes UT (Zyloprim) 5-26 Health 100 MG 16:36: tablet 02 clonazePAM 2021-0 Yes [id number] 1mg Q.5D Take 1 UT (KlonoPIN) 5-09 tablet (1 Heal th 1 MG 00:00: mg total) disintegrat 00 by mouth 2 ing tablet (two) times a day. DISSOLVE IN MOUTH TWICE A DAY clonazePAM 2021-0 Yes [id number] .5mg Q.5D Take 1 UT (KlonoPIN) 5-09 tablet Health 0.5 MG 00:00: (0.5 mg disintegrat 00 total) by ing tablet mouth 2 (two) times a day. PLACE 1 TABLET ON TONGUE AND ALLOW TO DISSOLVE TWICE DAILY NEEDED escitalopra 2021-0 Yes [id number] 20mg QD Take 1 UT m (Lexapro) 5-09 tablet (20 He alth 20 MG 00:00: mg total) tablet 00 by mouth 1 (one) time each day. gabapentin 2021-0 Yes [id number] 200mg Q.5D Take 2 UT (Neurontin) 5-09 capsules Heal th 100 MG 00:00: (200 mg capsule 00 total) by mouth 2 (two) times a day. clonazePAM 2021-0 Yes [id number] 1mg Q.5D Take 1 UT (KlonoPIN) 5-09 tablet (1 Heal th 1 MG 00:00: mg total) disintegrat 00 by mouth 2 ing tablet (two) times a day. DISSOLVE IN MOUTH TWICE A DAY clonazePAM 2022-0 Yes [id number] .5mg Q.5D Take 1 UT (KlonoPIN) 5-09 tablet Health 0.5 MG 00:00: (0.5 mg disintegrat 00 total) by ing tablet mouth 2 (two) times a day. PLACE 1 TABLET ON TONGUE AND ALLOW TO DISSOLVE TWICE DAILY NEEDED escitalopra 2021-0 Yes [id number] 20mg QD Take 1 UT m (Lexapro) 5-09 tablet (20 He alth 20 MG 00:00: mg total) tablet 00 by mouth 1 (one) time each day. gabapentin 2021-0 Yes [id number] 200mg Q.5D Take 2 UT (Neurontin) 5-09 capsules Heal th 100 MG 00:00: (200 mg capsule 00 total) by mouth 2 (two) times a day. clonazePAM 2021-0 Yes [id number] 1mg Q.5D Take 1 UT (KlonoPIN) 5-09 tablet (1 Heal th 1 MG 00:00: mg total) disintegrat 00 by mouth 2 ing tablet (two) times a day. DISSOLVE IN MOUTH TWICE A DAY clonazePAM 2021-0 Yes [id number] .5mg Q.5D Take 1 UT (KlonoPIN) 5-09 tablet Health 0.5 MG 00:00: (0.5 mg disintegrat 00 total) by ing tablet mouth 2 (two) times a day. PLACE 1 TABLET ON TONGUE AND ALLOW TO DISSOLVE TWICE DAILY NEEDED escitalopra 2021-0 Yes [id number] 20mg QD Take 1 UT m (Lexapro) 5-09 tablet (20 He alth 20 MG 00:00: mg total) tablet 00 by mouth 1 (one) time each day. gabapentin 2021-0 Yes [id number] 200mg Q.5D Take 2 UT (Neurontin) 5-09 capsules Heal th 100 MG 00:00: (200 mg capsule 00 total) by mouth 2 (two) times a day. clonazePAM 2-0 Yes [id number] 1mg Q.5D Take 1 UT (KlonoPIN) 5-09 tablet (1 Heal th 1 MG 00:00: mg total) disintegrat 00 by mouth 2 ing tablet (two) times a day. DISSOLVE IN MOUTH TWICE A DAY clonazePAM 2-0 Yes [id number] .5mg Q.5D Take 1 UT (KlonoPIN) 5-09 tablet Health 0.5 MG 00:00: (0.5 mg disintegrat 00 total) by ing tablet mouth 2 (two) times a day. PLACE 1 TABLET ON TONGUE AND ALLOW TO DISSOLVE TWICE DAILY NEEDED escitalopra 2022-0 Yes [id number] 20mg QD Take 1 UT m (Lexapro) 5-09 tablet (20 He alth 20 MG 00:00: mg total) tablet 00 by mouth 1 (one) time each day. gabapentin 2021-0 Yes [id number] 200mg Q.5D Take 2 UT (Neurontin) 5-09 capsules Heal th 100 MG 00:00: (200 mg capsule 00 total) by mouth 2 (two) times a day. clonazePAM 2021-0 Yes [id number] 1mg Q.5D Take 1 UT (KlonoPIN) 5-09 tablet (1 Heal th 1 MG 00:00: mg total) disintegrat 00 by mouth 2 ing tablet (two) times a day. DISSOLVE IN MOUTH TWICE A DAY clonazePAM 2-0 Yes [id number] .5mg Q.5D Take 1 UT (KlonoPIN) 5-09 tablet Health 0.5 MG 00:00: (0.5 mg disintegrat 00 total) by ing tablet mouth 2 (two) times a day. PLACE 1 TABLET ON TONGUE AND ALLOW TO DISSOLVE TWICE DAILY NEEDED escitalopra 2021-0 Yes [id number] 20mg QD Take 1 UT m (Lexapro) 5-09 tablet (20 He alth 20 MG 00:00: mg total) tablet 00 by mouth 1 (one) time each day. gabapentin 2-0 Yes [id number] 200mg Q.5D Take 2 UT (Neurontin) 5-09 capsules Heal th 100 MG 00:00: (200 mg capsule 00 total) by mouth 2 (two) times a day. clonazePAM 2-0 Yes [id number] 1mg Q.5D Take 1 UT (KlonoPIN) 5-09 tablet (1 Heal th 1 MG 00:00: mg total) disintegrat 00 by mouth 2 ing tablet (two) times a day. DISSOLVE IN MOUTH TWICE A DAY clonazePAM 2-0 Yes [id number] .5mg Q.5D Take 1 UT (KlonoPIN) 5-09 tablet Health 0.5 MG 00:00: (0.5 mg disintegrat 00 total) by ing tablet mouth 2 (two) times a day. PLACE 1 TABLET ON TONGUE AND ALLOW TO DISSOLVE TWICE DAILY NEEDED escitalopra 2022-0 Yes [id number] 20mg QD Take 1 UT m (Lexapro) 5-09 tablet (20 He alth 20 MG 00:00: mg total) tablet 00 by mouth 1 (one) time each day. gabapentin 2022-0 Yes [id number] 200mg Q.5D Take 2 UT (Neurontin) 5-09 capsules Heal th 100 MG 00:00: (200 mg capsule 00 total) by mouth 2 (two) times a day. levothyroxi 2022-0 Yes 200ug QD Take 200 U T ne 5-02 mcg by Health (Synthroid, 00:00: mouth 1 Levoxyl) 00 (one) time 200 MCG each day. tablet levothyroxi 2022-0 Yes 200ug QD Take 200 U T ne 5-02 mcg by Health (Synthroid, 00:00: mouth 1 Levoxyl) 00 (one) time 200 MCG each day. tablet levothyroxi 2022-0 Yes 200ug QD Take 200 U T ne 5-02 mcg by Health (Synthroid, 00:00: mouth 1 Levoxyl) 00 (one) time 200 MCG each day. tablet levothyroxi 2022-0 Yes 200ug QD Take 200 U T ne 5-02 mcg by Health (Synthroid, 00:00: mouth 1 Levoxyl) 00 (one) time 200 MCG each day. tablet levothyroxi 2022-0 Yes 200ug QD Take 200 U T ne 5-02 mcg by Health (Synthroid, 00:00: mouth 1 Levoxyl) 00 (one) time 200 MCG each day. tablet levothyroxi 2022-0 Yes 200ug QD Take 200 U T ne 5-02 mcg by Health (Synthroid, 00:00: mouth 1 Levoxyl) 00 (one) time 200 MCG each day. tablet levothyroxi 2022-0 Yes 200ug QD Take 200 U T ne 5-02 mcg by Health (Synthroid, 00:00: mouth 1 Levoxyl) 00 (one) time 200 MCG each day. tablet droxidopa 2022-0 Yes UT (Northera) 4-29 Health 100 MG 00:00: capsule 00 droxidopa 2022-0 Yes UT (Northera) 4-29 Health 100 MG 00:00: capsule 00 droxidopa 2022-0 Yes 100mg QD Take 100 UT (Northera) 4-29 mg by Health 100 MG 00:00: mouth 1 capsule 00 (one) time each day. droxidopa 2022-0 Yes 100mg QD Take 100 UT (Northera) 4-29 mg by Health 100 MG 00:00: mouth 1 capsule 00 (one) time each day. droxidopa 2022-0 Yes 100mg QD Take 100 UT (Northera) 4-29 mg by Health 100 MG 00:00: mouth 1 capsule 00 (one) time each day. droxidopa 2022-0 Yes 100mg QD Take 100 UT (Northera) 4-29 mg by Health 100 MG 00:00: mouth 1 capsule 00 (one) time each day. droxidopa 2022-0 Yes 100mg QD Take 100 UT (Northera) 4-29 mg by Health 100 MG 00:00: mouth 1 capsule 00 (one) time each day. levothyroxi 2020-09 Yes UT ne 1-08 Health (Synthroid, 00:00: Levoxyl) 50 00 MCG tablet levothyroxi 2020-09 Yes UT ne 1-08 Health (Synthroid, 00:00: Levoxyl) 50 00 MCG tablet levothyroxi 2020-09 Yes 50ug QD Take 50 UT ne 1-08 mcg by Health (Synthroid, 00:00: mouth 1 Levoxyl) 50 00 (one) time MCG tablet each day. levothyroxi 2020-09 Yes 50ug QD Take 50 UT ne 1-08 mcg by Health (Synthroid, 00:00: mouth 1 Levoxyl) 50 00 (one) time MCG tablet each day. levothyroxi 2020-09 Yes 50ug QD Take 50 UT ne 1-08 mcg by Health (Synthroid, 00:00: mouth 1 Levoxyl) 50 00 (one) time MCG tablet each day. levothyroxi 2020-09 Yes 50ug QD Take 50 UT ne 1-08 mcg by Health (Synthroid, 00:00: mouth 1 Levoxyl) 50 00 (one) time MCG tablet each day. levothyroxi 2020-09 Yes 50ug QD Take 50 UT ne 1-08 mcg by Health (Synthroid, 00:00: mouth 1 Levoxyl) 50 00 (one) time MCG tablet each day. clonAZEPAM 2020-09 Yes 1mg Q.5D Take 1 [...] times a day. sevelamer 2020-09 Yes 1600mg Q.[id number] Take 1,600 [facility] (RENAGEL) 0-[id number] 800 MG 16:07: 3D mouth 3 Hospita tablet 35 (three) l times a day with meals. linaGLIPtin 2020-09 Yes 5mg QD Take 5 mg M ethodi (TRADJENTA) 0-[address] 5 mg tablet 16:07: daily with Hospita 35 breakfast. l Eliquis 5 2020-09 Yes [facility] mg tablet 0-18 st 00:00: Hospita 00 l gabapentin 2020-09 Yes [id number] Take 200 UT (Neurontin) 0-05 mg po bid Hea lth 100 MG 00:00: capsule 00 gabapentin 2020-09 Yes [id number] Take 200 UT (Neurontin) 0-05 mg po bid Hea lth 100 MG 00:00: capsule 00 gabapentin 2020-09- No [id number] Take 200 UT (Neurontin) 0-05 07-18 mg po bid He alth 100 MG 00:00: 00:00 capsule 00 :00 enoxaparin Yes 100mg Q24H Inject 1 [facility] (Lovenox) 7-12 mL ([address] 100 mg/mL 00:00: total) Hospit a syringe 00 under the l skin daily. levothyroxi 2021- No [id number] 200ug QD Take 1 [facility] ne 7-12 07-[address] (SYNTHROID) 00:00: 04:59 (200 mcg H ospita 200 mcg 00 :00 total) by l tablet mouth daily. gabapentin Yes [id number] TAKE 1 U T (Neurontin) 6-14 CAPSULE IN He alth 100 MG 00:00: THE capsule 00 MORNING AND 2 CAPSULES IN THE EVENING. gabapentin Yes [id number] TAKE 1 U T (Neurontin) 6-14 CAPSULE IN He alth 100 MG 00:00: THE capsule 00 MORNING AND 2 CAPSULES IN THE EVENING. gabapentin Yes [id number] TAKE 1 U T (Neurontin) 6-14 CAPSULE IN He alth 100 MG 00:00: THE capsule 00 MORNING AND 2 CAPSULES IN THE EVENING. gabapentin Yes [id number] TAKE 1 U T (Neurontin) 6-14 CAPSULE IN He alth 100 MG 00:00: THE capsule 00 MORNING AND 2 CAPSULES IN THE EVENING. levothyroxi 2020- No 200ug QD Take 1 [facility] ne 03-[address] (SYNTHROID) 00:00: 00:00 (200 mcg H ospita 200 mcg 00 :00 total) by l tablet mouth daily for 30 days. apixaban 2020- No 5mg Q.5D Take 5 mg Met [facility] (ELIQUIS) 5 02-28 by mouth 2 s t mg tablet 23:50: 00:00 (two) Hospit a 42 :00 times a l day. calcitRIOL 2020- No .25ug QD Take 0.25 [facility] (ROCALTROL) 02-28-[address] 1 mcg/mL 23:50: 00:00 [...] No 100mg QD Take 100 [facility] (ZYLOPRIM) 02-28-[address] 100 MG 18:01: 00:00 mouth Hospita tablet 31 :00 daily. l allopurinoL 2020- No 100mg QD Take 1 [facility] (ZYLOPRIM) 02-[address] 100 MG 00:00: 04:59 (100 mg Hospita tablet 00 :00 total) by l mouth daily for 30 days. enoxaparin 2020- No 91mg Q24H Inject Meth kaylee (LOVENOX) 02-[address] 100 mg/mL 00:00: 00:00 (91 mg Hospi ta syringe 00 :00 total) l under the skin daily .Therapeut ic Anticoagul ation. midodrine 2020- No 10mg Q.[id number] Take 1 [facility] (PROAMATINE 02-28 [id number] tablet (10 st ) 10 MG 00:00: 04:59 3D mg total) Hosp teresa tablet 00 :00 by mouth 3 l (three) times a day for 30 days. levothyroxi 2020- No 125ug QD Take 125 [facility] ne 6-05 06-[address] (SYNTHROID) 18:39: 00:00 mouth Hosp teresa 125 mcg 49 :00 daily. l tablet acetaminoph No 650mg Q4H Take 650 [facility] en 6-05 06-[address] (TYLENOL) 18:37: 00:00 mouth Hospit a 325 MG 06 :00 every 4 l tablet (four) hours as needed for moderate pain or fever (pain level 4-6). clonazePAM Yes TAKE 1 UT (KlonoPIN) 6-03 TABLET Health 1 MG 00:00: DISSOLVE disintegrat 00 IN MOUTH ing tablet TWICE A DAY clonazePAM 2020- Yes TAKE 1 UT (KlonoPIN) 6-03 TABLET Health 1 MG 00:00: DISSOLVE disintegrat 00 IN MOUTH ing tablet TWICE A DAY clonazePAM 2020-0 Yes TAKE 1 UT (KlonoPIN) 6-03 TABLET Health 1 MG 00:00: DISSOLVE disintegrat 00 IN MOUTH ing tablet TWICE A DAY clonazePAM 2020- Yes TAKE 1 UT (KlonoPIN) 6-03 TABLET Health 1 MG 00:00: DISSOLVE disintegrat 00 IN MOUTH ing tablet TWICE A DAY allopurinol Yes UT (Zyloprim) 5-04 Health 100 MG 20:39: tablet 57 allopurinol Yes UT (Zyloprim) 5-04 Health 100 MG 20:39: tablet 57 allopurinol 0 Yes UT (Zyloprim) 5-04 Health 100 MG 20:39: tablet 57 allopurinol 0 Yes UT (Zyloprim) 5-04 Health 100 MG [...] tablet 56 DAILY. midodrine Yes Take by Metho di (PROAMATINE 5-[address] ) 5 MG 00:00: Hospita tablet 00 l Gabapentin Gabapentin 2019- Yes RIZWAN take 2 cap UT 100 MG Oral 100 MG Oral 1-23 [place] in morning Physici Capsule Capsule 00:00: M.D. and 2 cap an s 00 in kesha po clonazePAM clonazePAM 2019- Yes RIZWAN Q0.5D PLACE 1 UT 0.5 MG Oral 0.5 MG Oral 1-23 [place] TABLET ON Physici Tablet Tablet 00:00: M.D. TONGUE AND ans Disintegrat Disintegrat 00 ALLOW TO ing ing DISSOLVE TWICE DAILY NEEDED. clonazePAM 2019- Yes PLACE 1 UT (KlonoPIN) 1-23 TABLET ON Heal th 0.5 MG 00:00: TONGUE AND disintegrat 00 ALLOW TO ing tablet DISSOLVE TWICE DAILY NEEDED. clonazePAM 2019- Yes PLACE 1 UT (KlonoPIN) 1-23 TABLET [...] TWICE DAILY NEEDED. Renvela 800 Renvela 800 2019-09 Yes REYES QUINTERO 1 Q0.3333D TAKE 1 UT MG Oral MG Oral 1-03 M.D. TABLET 3 Physi ci Tablet Tablet 00:00: TIMES ans 00 DAILY Calcitriol Calcitriol 2019-09 Yes REYES QUINTERO Take 1 tab UT 0.5 MCG 0.5 MCG 1-03 M.D. daily as Physi ci Oral Oral 00:00: directed. ans Capsule Capsule 00 Tums E-X Tums E-X 2019-09 Yes REYES QUINTERO TAKE 3 UT 750 CHEW 750 CHEW [...] 750 MG 00 MEALS chewable tablet calcitriol 2020- Yes Take 1 tab U T (Rocaltrol) 1-03 daily as Heal th 0.5 MCG 00:00: directed. capsule 00 sevelamer 2020-1 Yes TAKE 1 UT carbonate 1-03 TABLET 3 Health (Renvela) 00:00: TIMES 800 MG 00 DAILY tablet sevelamer 2020- Yes TAKE 1 UT carbonate 1-03 TABLET 3 Health (Renvela) 00:00: TIMES 800 MG 00 DAILY tablet calcitriol 2020- Yes Take 1 tab U T (Rocaltrol) 1-03 daily as Heal th 0.5 MCG 00:00: directed. capsule 00 calcium 2020- Yes TAKE 3 UT carbonate 1-03 TABS TWICE Heal th EX (Tums 00:00: DAILY WITH E-X) 750 MG 00 MEALS chewable tablet calcitriol 2020- Yes Take 1 tab U T (Rocaltrol) 1-03 daily as Heal th 0.5 MCG 00:00: directed. capsule 00 sevelamer 2020- Yes TAKE 1 UT carbonate 1-03 TABLET 3 Health (Renvela) 00:00: TIMES 800 MG 00 DAILY tablet calcitriol 2020- Yes Take 1 tab U T (Rocaltrol) 1-03 daily as Heal th 0.5 MCG 00:00: directed. capsule 00 sevelamer 2020- Yes TAKE 1 UT carbonate 1-03 TABLET 3 Health (Renvela) 00:00: TIMES 800 MG 00 DAILY tablet calcitriol 2020-1 Yes Take 1 tab U T (Rocaltrol) 1-03 daily as Heal th 0.5 MCG 00:00: directed. capsule 00 sevelamer 2020-1 Yes TAKE 1 UT carbonate 1-03 TABLET 3 Health (Renvela) 00:00: TIMES 800 MG 00 DAILY tablet calcitriol 2020- Yes Take 1 tab U T (Rocaltrol) 1-03 daily as Heal th 0.5 MCG 00:00: directed. capsule 00 sevelamer 2020-1 Yes TAKE 1 UT carbonate 1-03 TABLET 3 Health (Renvela) 00:00: TIMES 800 MG 00 DAILY tablet calcium 2020-1 Yes TAKE 3 UT carbonate 1-03 TABS TWICE Heal th EX (Tums 00:00: DAILY WITH E-X) 750 MG 00 MEALS chewable tablet calcitriol 2020- Yes Take 1 tab U T (Rocaltrol) [...] th 0.5 MCG 00:00: directed. capsule 00 calcium 2019-09- No TAKE 3 UT carbonate 1-03 07-20 TABS TWICE Hea lth EX (Tums 00:00: 00:00 DAILY WITH E-X) 750 MG 00 :00 MEALS chewable tablet clonazePAM clonazePAM 2019- Yes RIZWAN TAKE 1 UT 1 MG Oral 1 MG Oral 8-03 HAFLIGER TABLET [facility] Tablet Tablet 00:00: M.D. DISSOLVE ans Disintegrat Disintegrat 00 IN MOUTH ing ing TWICE A DAY Tradjenta 5 Tradjenta 5 2019-0 Yes REYES QUINTERO TAKE 1 UT MG Oral MG Oral 6-16 M.D. TABLET BY Phys ici Tablet Tablet 00:00: MOUTH ans 00 EVERY DAY linaGLIPtin 2019-0 Yes TAKE 1 UT (Tradjenta) 6-16 TABLET BY Hea lth 5 MG tablet 00:00: MOUTH 00 EVERY DAY linaGLIPtin 2020-0 Yes TAKE 1 UT (Tradjenta) 6-16 TABLET BY Hea lth 5 MG tablet 00:00: MOUTH 00 EVERY DAY linaGLIPtin 2019-0 Yes TAKE 1 UT (Tradjenta) 6-16 TABLET BY Hea lth 5 MG tablet 00:00: MOUTH 00 EVERY DAY linaGLIPtin 2020-0 Yes TAKE 1 UT (Tradjenta) 6-16 TABLET BY Hea lth 5 MG tablet 00:00: MOUTH 00 EVERY DAY linaGLIPtin 2020-0 Yes TAKE 1 UT (Tradjenta) 6-16 TABLET BY Hea lth 5 MG tablet 00:00: MOUTH 00 EVERY DAY linaGLIPtin 2020-0 Yes TAKE 1 UT (Tradjenta) 6-16 TABLET BY Hea lth 5 MG tablet 00:00: MOUTH 00 EVERY DAY linaGLIPtin 2020-0 Yes TAKE 1 UT (Tradjenta) 6-16 TABLET BY Hea lth 5 MG tablet 00:00: MOUTH 00 EVERY DAY linaGLIPtin 2020-0 Yes TAKE 1 UT (Tradjenta) 6-16 TABLET BY Hea lth 5 MG tablet 00:00: MOUTH 00 EVERY DAY linaGLIPtin 2020-0 Yes TAKE 1 UT (Tradjenta) 6-16 TABLET BY Hea lth 5 MG tablet 00:00: MOUTH 00 EVERY DAY linaGLIPtin 2020-0 Yes TAKE 1 UT (Tradjenta) 6-16 TABLET BY Hea lth 5 MG tablet 00:00: MOUTH 00 EVERY DAY linaGLIPtin 2020-0 Yes TAKE 1 UT (Tradjenta) 6-16 TABLET [...] as needed Spirit 00:00: - [facility] 00 [facility] Eliquis 5 Eliquis 5 Yes MARLYS Take 1 UT MG Oral MG Oral 9- RUPESH tablet by P hysici Tablet Tablet 00:00: M.D. mouth ans [...] 2017- Yes Take 1 UT (Eliquis) 5 9- tablet by Hea lth MG tablet 00:00: [...] NEEDS APPOINTMEN T FOR ADDITIONAL REFILLS apixaban 2018- Yes Take 1 UT (Eliquis) 5 9-28 tablet by Hea lth MG tablet 00:00: mouth 00 twice a day PATIENT NEEDS APPOINTMEN T FOR ADDITIONAL REFILLS apixaban 2018-0 Yes Take 1 UT (Eliquis) 5 9-28 tablet by Hea lth MG tablet 00:00: mouth 00 twice a day PATIENT NEEDS APPOINTMEN T FOR ADDITIONAL REFILLS apixaban 2018-0 Yes Take 1 UT (Eliquis) 5 9-28 tablet by Hea lth MG tablet 00:00: mouth 00 twice a day PATIENT NEEDS APPOINTMEN T FOR ADDITIONAL REFILLS apixaban 2018-0 Yes Take 1 UT (Eliquis) 5 9-28 tablet by Hea lth MG tablet 00:00: mouth 00 twice a day PATIENT NEEDS APPOINTMEN T FOR ADDITIONAL REFILLS apixaban Yes Take 1 UT (Eliquis) 5 9-28 tablet by Hea lth MG tablet 00:00: mouth 00 twice a day PATIENT NEEDS APPOINTMEN T FOR ADDITIONAL REFILLS allopurinoL Yes Take by [facility] (ZYLOPRIM) 7- mouth. st 100 MG 00:00: Hospita tablet 00 l levothyroxi Yes TAKE 1 UT ne 6-11 TABLET BY [facility] (Synthroid, 00:00: MOUTH Levoxyl) 00 EVERY DAY. 150 MCG CALL tablet OFFICE, NEEDS VISIT. levothyroxi 2014- Yes TAKE 1 UT ne 6-11 TABLET BY [facility] (Synthroid, 00:00: MOUTH Levoxyl) 00 EVERY DAY. 150 MCG CALL tablet OFFICE, NEEDS VISIT. levothyroxi 2014- Yes TAKE 1 UT ne 6-11 TABLET BY Health (Synthroid, 00:00: MOUTH Levoxyl) 00 EVERY DAY. 150 MCG CALL tablet OFFICE, NEEDS VISIT. levothyroxi Yes TAKE 1 UT ne 6-11 TABLET BY [facility] (Synthroid, 00:00: MOUTH Levoxyl) 00 EVERY DAY. 150 MCG CALL tablet OFFICE, NEEDS VISIT. Levothyroxi Levothyroxi Yes HUMBLE QD TAKE 1 UT ne Sodium ne Sodium 6-11 TAMAR TABLET BY Physic 150 MCG 150 MCG 00:00: M.D. MOUTH ans Oral Tablet Oral Tablet 00 EVERY DAY. CALL OFFICE, NEEDS VISIT. levothyroxi 2014- Yes TAKE 1 UT ne 6-11 TABLET BY [facility] (Synthroid, 00:00: MOUTH Levoxyl) 00 EVERY DAY. 150 MCG CALL tablet OFFICE, NEEDS VISIT. levothyroxi 2014-0 Yes TAKE 1 UT ne 6-11 TABLET BY [facility] (Synthroid, 00:00: MOUTH Levoxyl) 00 EVERY DAY. 150 MCG CALL tablet OFFICE, NEEDS VISIT. levothyroxi 2014- Yes TAKE 1 UT ne 6-11 TABLET BY Health (Synthroid, 00:00: MOUTH Levoxyl) 00 EVERY DAY. 150 MCG CALL tablet OFFICE, NEEDS VISIT. levothyroxi 2021- No TAKE 1 UT ne 02-28 0720 TABLET BY [facility] (Synthroid, 00:00: 00:00 MOUTH Levoxyl) 00 :00 EVERY DAY. 150 MCG CALL tablet OFFICE, NEEDS VISIT. Allopurinol Allopurinol Yes U T 100 MG Oral 100 MG Oral P hysici Tablet Tablet ans Midodrine Midodrine Yes TAKE 1 UT HCl - 5 MG HCl - 5 MG TABLET 2 [facility] Oral Tablet Oral Tablet TIMES ans DAILY. Immunizations Ordered Immunization Filled Date Status Comments Sour ce Name Immunization Name Pfizer-BioNTech 2020-11-21 Completed [facility] COVID-[facility] Vacc [...] Time Observation Value Comments Source Systolic blood 2022-05-11 76 mm[Hg] [facility] pressure 19:28:00 Diastolic blood 2022-05-11 53 mm[Hg] [facility] pressure 19:28:00 Heart rate 2022-05-11 104 /min [facility] 19:28:00 Respiratory rate 2022-05-11 16 /min [facility] 19:28:00 Body height 2022-05-11 152.4 cm [facility] 19:28:00 Body weight 2022-05-11 73.029 kg [facility] 19:28:00 BMI 2022-05-11 31.44 kg/m2 [facility] 19:28:00 Oxygen saturation 2022-05-11 100 /min [facility] in Arterial blood 19:28:00 by Pulse oximetry Systolic blood 2022-04-08 83 mm[Hg] [facility] pressure 20:33:00 Diastolic blood 2022-04-08 54 mm[Hg] [facility] pressure 20:33:00 Heart rate 2022-04-08 76 /min [facility] 20:33:00 Body temperature 2022-04-08 36.78 Jennifer [facility] 20:33:00 Body weight 2022-04-08 71 kg [facility] 20:33:00 BMI 2022-04-08 30.57 kg/m2 [facility] 20:33:00 Oxygen saturation 2022-04-08 100 /min [facility] in Arterial blood 20:33:00 by Pulse oximetry Systolic blood 2022-04-06 89 mm[Hg] [facility] pressure 19:56:00 Diastolic blood 2022-04-06 58 mm[Hg] [facility] pressure 19:56:00 Heart rate 2022-04-06 64 /min [facility] 19:56:00 Respiratory rate 2022-04-06 16 /min [facility] 19:56:00 Body weight 2022-04-06 75.841 kg [facility] 19:56:00 BMI 2022-04-06 32.65 kg/m2 [facility] 19:56:00 Oxygen saturation 2022-04-06 99 /min [facility] in Arterial blood 19:56:00 by Pulse oximetry Systolic blood 2022-02-12 78 mm[Hg] [facility] pressure 21:38:00 Diastolic blood 2022-02-12 50 mm[Hg] [facility] pressure 21:38:00 Heart rate 2022-02-12 76 /min [facility] 21:38:00 Body temperature 2022-02-12 37 Jennifer [facility] 21:38:00 Respiratory rate 2022-02-12 14 /min [facility] 21:38:00 Body height 2022-02-12 152.4 cm [facility] 21:38:00 Body weight 2022-02-12 76.318 kg [facility] 21:38:00 BMI 2022-02-12 32.86 kg/m2 [facility] 21:38:00 Systolic blood 2021-07-09 72 mm[Hg] [facility] 16:24:00 Hospital Diastolic blood 2021-07-09 44 mm[Hg] [facility] 16:24:00 Hospital Heart rate 2021-07-09 34 /min [facility] 16:24:00 Hospital Body temperature 2021-07-09 36.44 Jennifer [facility] 16:24:00 Hospital Body height 2021-07-09 152.4 cm [facility] 16:24:00 Hospital Body weight 2021-07-09 85.7 kg [facility] 16:24:00 Hospital BMI 2021-07-09 36.90 kg/m2 [facility] 16:24:00 Hospital Oxygen saturation 2021-07-09 96 /min [facility] in Arterial blood 16:24:00 Hospital by Pulse oximetry Respiratory rate 2021-02-28 18 /min [facility] 20:45:00 Hospital Systolic blood 2021-01-16 84 mm[Hg] [facility]: R[facility]; [facility] pressure 16:27:00 Position: Sitting Diastolic blood 2021-01-16 52 mm[Hg] [facility] pressure 16:27:00 Position: Sitting Body [...] Systolic blood 2020-12-26 80 mm[Hg] [facility] pressure 16:02:00 Position: Sitting Diastolic blood 2020-12-26 50 mm[Hg] [facility] pressure 16:02:00 Position: Sitting Body height 2020-12-26 60 [in_us] [facility] 16:02:00 Weight 2020-12-26 206 [lb_av] [facility] 16:02:00 Body mass index 2020-12-26 40.23 kg/m2 [facility] (BMI) [Ratio] 16:02:00 Body temperature 2020-12-26 97 [degF] Method: [facility] 16:02:00 Temporal Heart Rate 2020-12-26 81 /min [facility]: R [facility] 16:02:00 Brachial Artery; Systolic blood 2020-11-19 98 mm[Hg] Location: RUE; [facility] pressure 11:16:00 Position: Sitting Diastolic [...] Systolic blood 2020-11-14 111 mm[Hg] [facility] pressure 15:50:00 Position: Sitting Diastolic blood 2020-11-14 67 mm[Hg] [facility] pressure 15:50:00 Position: Sitting Body [...] Diastolic blood 2020-10-29 61 mm[Hg] [facility]; [facility] pressure 09:53:00 Position: Sitting Systolic [...] Diastolic blood 2020-01-22 60 mm[Hg] [facility]; [facility] pressure 13:54:00 Position: Sitting Body [...] 13:40:00 Temperature 2019-07-21 96.9 [degF] Method: Oral [facility] 13:40:00 Heart Rate 2019-07-21 69 /min [facility] 13:40:00 O2 SAT 2019-07-21 99 % [facility] 13:40:00 BP Systolic 2019-07-17 106 mm[Hg] [facility]; [facility] 13:47:00 Position: Sitting BP Diastolic 2019-07-17 72 mm[Hg] Location: [facility]; [facility] 13:47:00 Position: Sitting Height 2019-07-17 60 [in_us] [facility] 13:47:00 Weight 2019-07-17 212 [lb_av] [facility] 13:47:00 Body Mass Index 2019-07-17 41.4 kg/m2 [facility] Calculated 13:47:00 Temperature 2019-07-17 97.7 [degF] Method: Oral [facility] 13:47:00 Heart Rate 2019-07-17 104 /min [facility] 13:47:00 BP Systolic 2017-12-06 101 mm[Hg] Location[facility]; [facility] 11:04:00 Position: Sitting BP Diastolic 2017-12-06 66 mm[Hg] [facility]; [facility] 11:04:00 Position: Sitting Height 2017-12-06 62 [in_us] [facility] 11:04:00 Weight 2017-12-06 210.25 [lb_av] [facility] 11:04:00 Body Mass Index 2017-12-06 38.46 kg/m2 [facility] Calculated 11:04:00 Temperature 2017-12-06 97.7 [degF] Method: Oral [facility] 11:04:00 Heart Rate 2017-12-06 97 /min Location: R [facility] 11:04:00 Brachial Artery; Quality: Normal Respiration Rate 2017-12-06 18 /min Quality: Normal [facility] 11:04:00 Procedures Procedure Date / Time Performing Source Performed Clinician ECG 12-LEAD 2022-04-06 Kandace Santos [facility] 20:02:00 [id number] 2021-07-21 [facility] 00:00:00 Rehabilitation P veronica [id number] 2021-07-21 [facility] 00:00:00 Rehabilitation P earlrobert [id number] 2021-07-21 [facility] 00:00:00 Rehabilitation P veronica [id number] 2021-07-18 [facility] [id number] 2021-07-16 [facility] [id number] 2021-07-14 [facility] [id number] 2021-07-12 [facility] [id number] 2021-07-12 [facility] [id number] 2021-07-11 [facility] [id number] 2021-07-11 [facility] [id number] 2021-07-10 [facility] [id number] 2021-07-09 WILJA.07 [facility] [id number] 2021-07-09 [facility]ILJA.07 [facility] [id number] 2021-07-09 [facility]ILJA.07 [facility] [id number] 2021-07-09 [facility]JA.07 [facility] [id number] 2021-07-09 WILJA.07 [facility]care 00:00:00 Medical Center T3 2021-03-11 [facility] 15:31:00 T4, FREE 2021-03-11 [facility] 15:31:00 THYROID STIMULATING 2021-03-11 Morena Sun [facility] HORMONE 15:31:00 T4, FREE 2021-03-08 [facility] 16:02:00 TSH 2021-03-08 [facility] 16:02:00 HEMODIALYSIS 2021-02-28 [facility] 16:45:06 POC GLUCOSE 2021-02-28 [facility] 16:22:00 POC GLUCOSE 2021-02-28 ApvelJuventino arreola [facility] 13:19:00 T4, FREE 2021-02-28 Syal, [facility] 09:17:00 T3 2021-02-28 [facility] 09:17:00 POC GLUCOSE 2021-02-28 PavelJuventino arreola [facility] 02:30:00 POC GLUCOSE 2021-02-27 Pavel, [facility] Faulkner [facility] 23:07:00 POC GLUCOSE 2021-02-27 Pavel, [facility] Faulkner [facility] 16:25:00 POC GLUCOSE 2021-02-27 Pavel, Juvent[facility] Faulkner [facility] 13:40:00 THYROID STIMULATING 2021-02-27 Syal, [facility] HORMONE 09:12:00 T4, FREE 2021-02-27 [facility] 09:12:00 T3 2021-02-27 [facility] 09:12:00 POC GLUCOSE 2021-02-27 PavelJuventino arreola [facility] 02:32:00 POC GLUCOSE 2021-02-27 PavelJuventino arreola [facility] 01:11:00 POC GLUCOSE 2021-02-26 [facility] Gir[facility] 14:13:00 HEMODIALYSIS 2021-02-26 [facility] 11:28:12 THYROID STIMULATING 2021-02-26 [facility] HORMONE 09:31:00 T4, FREE 2021-02-26 Syal, [facility] 09:31:00 ANTI XA, LOW MOLECULAR 2021-02-26 Bill Ann [facility] WEIGHT 03:02:00 Lianet POC GLUCOSE 2021-02-26 [facility] 02:35:00 POC GLUCOSE 2021-02-25 [facility] 22:15:00 POC GLUCOSE 2021-02-25 [facility] 17:03:00 POC GLUCOSE 2021-02-25 [facility] 14:14:00 ANTI XA, LOW MOLECULAR 2021-02-25 [facility] WEIGHT 08:53:00 Lianet HC COMPLETE BLD COUNT 2021-02-25 [facility] W/AUTO DIFF 08:53:00 POC GLUCOSE 2021-02-24 [facility] 22:34:00 HEPATITIS B SURFACE 2021-02-24 [facility] ANTIGEN 21:47:00 HEMODIALYSIS 2021-02-24 [facility] 21:46:32 T4, FREE 2021-02-24 [facility] 20:14:00 T3 2021-02-24 [facility] 20:14:00 THYROID STIMULATING 2021-02-24 [facility] 20:14:00 POC GLUCOSE 2021-02-24 [facility] 17:25:00 POC GLUCOSE 2021-02-24 [facility] 13:19:00 HC COMPLETE BLD COUNT 2021-02-24 [facility] W/AUTO DIFF 09:41:00 BASIC METABOLIC PANEL 2021-02-24 [facility] 09:41:00 GLIADIN PEPTIDE ABS, IGA 2021-02-24 [facility] AND IGG 09:41:00 Lianet ESTIMATED GFR 2021-02-24 [facility] 09:41:00 POC GLUCOSE 2021-02-24 [facility] 00:47:00 POC GLUCOSE 2021-02-23 [facility] 22:10:00 POC GLUCOSE 2021-02-23 [facility] 17:56:00 POC GLUCOSE 2021-02-23 [facility] 13:03:00 HC COMPLETE BLD COUNT 2021-02-23 [facility] W/AUTO DIFF 09:41:00 BASIC METABOLIC PANEL 2021-02-23 [facility] 09:40:00 ESTIMATED GFR 2021-02-23 [facility] al 09:40:00 POC GLUCOSE 2021-02-23 [facility] 01:06:00 POC GLUCOSE 2021-02-22 [facility] 22:37:00 TTE COMPLETE, WO 2021-02-22 [facility] CONTRAST, W DOPPLER 21:00:00 ([id number]) VENIPUNC NEED PHYS 2021-02-22 Santino Ulloa [facility] ospital SKILL,DX OR RX 19:33:29 POC GLUCOSE 2021-02-22 [facility] 17:47:00 BLOOD CULTURE, AEROBIC & 2021-02-22 [facility] ANAEROBIC 16:58:00 Lianet ANTI XA APIXABAN 2021-02-22 [facility] 16:58:00 Lianet KAPPA LAMBDA FREE LIGHT 2021-02-[address] [facility] [place] CHAIN WITH RATIO 16:58:00 Lianet THYROID PEROXIDASE 2021-02-22 [facility] ANTIBODY 16:58:00 THYROGLOBULIN ANTIBODY 2021-02-22 [facility] 16:58:00 T3 2021-02-22 Jorge Quinn [facility] 16:58:00 SERUM ELECTROPHORESIS 2021-02-22 [facility] 16:58:00 Lianet POC GLUCOSE 2021-02-22 [facility] 12:47:00 POC GLUCOSE 2021-02-22 [facility] 10:26:00 T3, FREE 2021-02-22 [facility] 10:25:00 T4, FREE 2021-02-22 [facility] 10[facility]25:00 HEMOGLOBIN A1C 2021-02-22 [facility] al 10:25:00 LIPID PANEL 2021-02-22 [facility] 10:25:00 CORTISOL LEVEL, RANDOM 2021-02-22 [facility] 10:25:00 TROPONIN 2021-02-22 Rehrer, See Derrell [facility] 05:29:00 PREALBUMIN LEVEL 2021-02-22 [facility] 02:06:00 PHOSPHORUS LEVEL 2021-02-22 [facility] 02:06:00 MAGNESIUM LEVEL 2021-02-22 [facility] al 02:06:00 LIPID PANEL 2021-02-22 [facility] 02:06:00 LIPASE LEVEL 2021-02-22 [facility] 02:06:00 LACTIC ACID LEVEL 2021-02-22 [facility] 02:06:00 COMPREHENSIVE METABOLIC 2021-02-22 [facility] PANEL 02:06:00 CREATINE KINASE, TOTAL 2021-02-22 [facility] (CPK) 02:06:00 THYROID STIMULATING 2021-02-22 [facility] spital HORMONE 02:06:00 T4, FREE 2021-02-22 [facility] 02:06:00 B NATRIURETIC PEPTIDE 2021-02-22 [facility] 02:06:00 TROPONIN 2021-02-22 [facility] 02:06:00 ESTIMATED GFR 2021-02-22 [facility] 02:06:00 BILIRUBIN DIRECT 2021-02-22 [facility] antony 02:06:00 COVID-19 QUALITATIVE 2021-02-22 Rehrer, [facility] RT-PCR 01:26:00 TROPONIN 2021-02-22 Rehrer, [facility] Ho spital 01:26:00 XR CHEST 1 VW PORTABLE 2021-02-22 [facility]hrer[facility] 01:01:51 BLOOD CULTURE, AEROBIC & 2021-02-22 Rehrer, [facility] ANAEROBIC 00:43:00 HC COMPLETE BLD COUNT 2021-02-21 Rehrer, [facility] W/AUTO DIFF 22:56:00 COMPREHENSIVE METABOLIC 2021-02-21 Rehrer, [facility] PANEL 22:56:00 TROPONIN 2021-02-21 Rehrer, [facility] Ho spital 22:56:00 B NATRIURETIC PEPTIDE 2021-02-21 Rehrer, [facility] 22:56:00 ESTIMATED GFR 2021-02-21 Rehrer, [facility] Ho spital 22:56:00 ECG ED PRELIMINARY 2021-02-21 Rehrer, [facility] INTERPRETATION 22:49:06 ECG 12-LEAD 2021-02-21 Rehrer, [facility] 22:19:43 CVRAD - Right Upper 2021-01-24 [facility] Arterial Duplex Uni/Lmt - 00:00:00 [id number] [N] 2D Echo complete, 2021-01-17 [facility] with Doppler [id number] 00:00:00 CVRAD - Right Upper 2020-12-27 [facility] Arterial Duplex Uni/Lmt - 00:00:00 [id number] [N] 2D Echo complete, 2020-12-27 [facility] with Doppler [id number] 00:00:00 US Pelvis with Pelvis 2020-11-19 [facility] Transvaginal [id number] 00:00:00 MA Breast mammogram 2020-11-19 [facility] bilateral [id number] 00:00:00 MA Breast mammogram 2020-11-14 [facility] bilateral [id number] 00:00:00 [QL] TSH, 3RD GENERATION 2020-10-31 [facility] 00:00:00 [QL] T4, FREE 2020-10-31 [facility] 00:00:00 XRAY Chest 2 views [id number] 2020-07-26 [facility] 00:00:00 [QL] CALCIUM, IONIZED 2020-07-23 [facility] 00:00:00 [Q] CALCIUM 2020-07-23 [facility] 00:00:00 [QL] ALBUMIN 2020-07-23 [facility] 00:00:00 [QL] CALCIUM, IONIZED 2020-07-16 [facility] 00:00:00 [QL] PTH, INTACT (WITHOUT 2020-07-16 [facility] CALCIUM) 00:00:00 [Q] CALCIUM 2020-07-16 [facility] 00[facility]00:00 [QL] ALBUMIN 2020-07-16 [facility] 00:00:00 [QL] PHOSPHATE ( 2020-07-16 [facility] PHOSPHORUS) 00:00:00 [QL] MAGNESIUM 2020-07-16 [facility] 00:00:00 [id number] 2020-06-06 [facility] [id number] 2020-06-06 [facility]R.05 [facility] [id number] 2020-06-06 HOTA [facility] 00:00:00 [facility] [id number] 2020-06-05 [facility] 00:00:00 [facility] NM Parathyroid SPECT 2020-05-30 [place] [facility] [id number] 00:00:00 [QL] TSH, 3RD GENERATION 2020-03-05 [facility] 00:00:00 [QL] T4, FREE 2020-03-05 [facility] 00:00:00 [id number] 2019-11-27 [facility] 00:00:00 Rehabilitation P earland [id number] 2019-11-27 [facility] 00:00:00 [facility] P [facility] [id number] 2019-11-27 [facility] 00:00:00 [facility] P [facility] [id number] 2019-11-27 [facility] 00:00:00 [facility] P [facility] [id number] 2019-11-27 [facility] 00:00:00 [facility] P [facility] [id number] 2019-11-27 [facility] 00:00:00 [facility] P [facility] [id number] 2019-11-27 [facility] 00:00:00 Rehabilitation P ear[facility] [QLH] TSH, 3RD GENERATION 2019-10-31 [facility]:00 [id number] 2019-10-11 [facility] 00:00:00 [facility] P [place] [id number] 2019-10-11 [facility] 00:00:00 [facility] P [place] [id number] 2019-10-11 [facility] 00:00:00 [facility] P [facility] [id number] 2019-10-11 [facility] 00:00:00 [facility] P [facility] [id number] 2019-10-11 [facility] 00:00:00 [facility] [id number] 2019-10-11 [facility] 00:00:00 [facility] P [facility] [id number] 2019-10-11 [facility] 00:00:00 [facility] P [facility] [id number] 2019-10-11 [facility] 00:00:00 [facility] P [facility] [id number] 2019-10-11 [facility] 00:00:00 Rehabilitation P [facility] [id number] 2019-10-11 [facility] 00:00:00 [facility] P [facility] [id number] 2019-10-11 [facility] 00:00:00 [facility] P [facility] [id number] 2019-10-11 [facility] 00:00:00 [facility] P [place] [id number] 2019-10-11 [facility] 00:00:00 [facility] [id number] 2019-10-11 [facility] 00:00:00 [facility] [id number] 2019-10-11 [facility] 00:00:00 [facility] [id number] 2019-10-11 [facility] 00:00:00 [facility] [id number] 2019-10-11 [facility] 00:00:00 [facility] [id number] 2019-10-11 [facility] 00:00:00 [facility] [id number] 2019-10-11 [facility] 00:00:00 [facility] [id number] 2019-10-11 [facility] 00:00:00 [facility] [id number] 2019-10-11 [facility] 00:00:00 [facility] [id number] 2019-10-11 [facility] 00:00:00 [facility] [id number] 2019-10-11 [facility] 00:00:00 [facility] [id number] 2019-10-11 [facility] 00:00:00 [facility] [id number] 2019-10-11 [facility] 00:00:00 [facility] [id number] 2019-10-11 [facility] 00:00:00 [facility] [id number] 2019-10-11 [facility] 00:00:00 [facility] [id number] 2019-10-11 [facility] 00:00:00 [facility] [QLH] TSH, 3RD GENERATION 2019-09-28 [facility]00 XRAY Ankle 3 views 2019-09-28 [facility] Bilateral 61585 00:00:00 XRAY Foot 3 views 2019-09-28 [facility] Bilateral 37073 00:00:00 XRAY Toe 13663 2019-09-28 [facility] 00:00:00 CVRAD - Hemodialysis 2019-07-21 [facility] Access Duplex - [id number] 00:00:00 CVRAD - Left Upper Vein 2017-12-09 [facility] Mapping Limited - 51898 00:00:00 [QLH] HEPATITIS B CORE AB 2017-11-09 [facility] TOTAL 00:00:00 [QLH] HEPATITIS PANEL 2017-11-09 [facility] [QLH] HEPATITIS B SURFACE 2017-11-09 [facility] ANTIBODY (QUANT) 00:00:00 History of Thyroid [facility] Surgery Substernal Thyroidectomy History of Thyroid [facility] Surgery Luiz-Thyroidectomy Left Lobe History [facility] Colostomy [facility] Cholecystectomy History of Hernia Repair [facility] History of Laminectomy [facility] Lumbar History of Arteriovenous [facility] fistula creation procedure History of [facility] Gastrointestinal surgery Plan of Care Planned Activity Planned Date Details Comments Source Future Scheduled 2021-12-19 [N] 2D Echo complete, [facility] Test 00:00:00 with Doppler 57409 [code = [N] 2D Echo complete, with Doppler 80343] Future Scheduled 2021-12-19 [N] 2D Echo complete[facility] Test 00:00:00 with Doppler 66480 [code = [N] 2D Echo complete, with Doppler 84378] Diagnostic Test 2020-12-27 [N] 2D Echo complete, [facility] Pending 00:00:00 with Doppler 70158 [code = [N] 2D Echo complete, with Doppler 27754] Diagnostic Test 2020-12-27 [facility] - Right Upper [facility] Pending 00:00:00 Arterial Duplex Uni/Lmt - 56722 [code = 12163] Diagnostic Test 2020-12-27 [facility] - Right Upper [facility] Pending 00:00:00 Arterial Duplex Uni/Lmt - 38677 [code = 96509] Diagnostic Test 2020-12-27 [N] 2D Echo complete, [facility] Pending 00:00:00 with Doppler 74907 [code = [N] 2D Echo complete, with Doppler 80191] Future Scheduled 2020-12-23 [QL] TSH, 3RD [facility] Test 00:00:00 GENERATION [code = [QL] TSH, 3RD GENERATION] Future Scheduled 2020-12-23 [QL] T4, FREE [code = [facility] 00:00:00 [QL] T4, FREE] Diagnostic Test 2020-05-30 NM Parathyroid SPECT [facility] 00:00:00 87438 [code = 73758] Diagnostic Test 2020-05-30 NM Parathyroid SPECT [facility] 00:00:00 75011 [code = 79467] Diagnostic Test 2019-07-21 [facility] Hemodialysis [facility] 00:00:00 Access Duplex - 89613 [code = 28943] Future Scheduled 65+ [facility] Test VACCINE (1 of 4 - PCV13) [code = 65+ PNEUMOCOCCAL VACCINE (1 of 4 - PCV13)] Future Scheduled DIABETES: RETINAL EYE [facility] Test EXAM [code = DIABETES: RETINAL EYE EXAM] Future Scheduled [facility] Test [code = DIABETIC FOOT EXAM] Future Scheduled Hepatitis C screening [facility] Test (procedure) [code = 313677452] Future Scheduled BREAST CANCER [facility] Test SCREENING [code = BREAST CANCER SCREENING] Future Scheduled COLONOSCOPY [facility]CRE[facility]ING [facility] Test [code = COLONOSCOPY SCREENING] Future Scheduled [facility] (#1) [code = SHINGLES VACCINES (#1)] Future Scheduled IN[facility]ACCINE [facility] [code = INFLUENZA VACCINE] Encounters Start End Encounter Admission Attending Care Care Encounter Source Date/Time Date/Time Type Type Clinicians Facility Department ID 2022-06-09 Outpatient [facility] [id number] [place] 12:54:46 Health 2022-06-04 Outpatient [facility] [id number] [place] 14:23:14 [id number] [facility] 2022-05-30 Inpatient ML [facility] 7534 [facility] H 21:14:20 ARMEN 2022-05-19 [facility] [id number] [facility] 09:27:27 w, 26 [facility] 2022-05-11 Outpatient [facility] [id number] [place] 15:23:19 [id number] [facility] 2022-05-07 Outpatient [facility] [id number] [place] 07:46:53 [id number] [facility] 2022-05-05 Outpatient ML, [facility] 7533 [facility] 08:18:30 ARMEN 2022-04-14 Outpatient [facility] [id number] [place] 13:04:26 [id number] [facility] 2022-04-09 Outpatient ML, [facility] [id number] [place] 14:40:44 ARMEN [id number] [facility] 2022-04-08 Outpatient ML, [facility] [id number] [place] 15:25:00 ARMEN [id number] [facility] 2022-04-07 Outpatient ML, [facility] [id number] [place] 10:29:19 AREMN [id number] [facility] 2022-04-06 Outpatient SANTOS, [facility] [id number] [place] 11:50:58 KANDACE [id number] [facility] 2022-02-27 Outpatient [facility] [id number] [place] 14:46:38 [id number] [facility] 2022-02-21 Outpatient DOUGHERTY, [facility] [id number] [place] 02:55:17 PAULO [id number] [facility] 2022-02-13 Outpatient TAMAR, [facility] [id number] [place] 11:16:05 HUMBLE [id number] 2022-02-12 Outpatient TAMAR, [facility] [id number] [place] 16:03:44 HUMBLE [id number] [facility] 2022-02-04 Outpatient TAMAR, [facility] [id number] [place] 13:39:26 HUMBLE [id number] Health 2022-01-26 Outpatient HAFLIGER, [facility] [id number] [place] 08:10:27 RIZWAN [id number] Health 2021-12-30 Outpatient [facility] [id number] [place] 05:50:14 [id number] Health 2021-12-15 Outpatient HAFLIGER, [facility] [id number] [place] 10:47:43 RIZWAN [id number] Health 2021-10-16 Outpatient 3 JANNIE HAMMONDPL CRD [facility] 13:12:13 NI 1030 [facility] [place] 2021-10-16 Outpatient 3 STEPHANYJANNIEPL CRD [facility] 13:10:54 NI 1027 [facility] [place] 2021-10-16 Outpatient 3 [id number] ENCPL REF [id number] [facility] 13:10:12 1026 ss [facility] [place] 2021-10-16 Outpatient 3 [id number] ENCPL REF [id number] [facility] 13:09:50 1025 ss [facility] [place] 2021-10-16 Outpatient [address] [facility] 09:20:30 NI 0306 [facility] [place] 2021-10-16 Outpatient 3 [id number] ENCPL REF [facility] 09:18:12 0301 [facility] [place] 2021-10-16 Outpatient 3 [id number] ENCPL REF [facility] 09:02:20 0121 ss [facility] [place] 2021-10-16 Outpatient 3 [id number] ENCPL REF [id number] [facility] 09:02:05 0120 [facility] [place] 2021 Outpatient FARHAT [facility] [id number] [place] 14:42:01 PAULO [facility] 2021-02-10 Outpatient LOLITA [facility] [id number] [place] 14:17:18 RIZWAN Health 2021-01-25 Outpatient REYES QUINTERO [facility] [id number] [place] 03:45:13 Health 2021-01-25 Outpatient TAMAR [facility] [id number] [place] 03:45:12 [facility] 2021-01-25 Outpatient JERSEY CARD [facility] [id number] [place] 03:45:12 Health 2020-12-10 [facility] DAYS [id number] [facility] 07:30:00 w, 90135 [facility] 2020-06-14 Outpatient [facility] [id number] MH 08:55:[address] [facility] [facility] l 2020-06-04 Inpatient [place] [facility] DAYS [id number] [facility] 14:45:00 w, 77927 [facility] 2019-11-26 Inpatient 3 JANNIE HAMMONDPL OTH [id number] [facility] 14:13:00 NI 0308 ss [facility] Rehabil [facility]ation [place] 2018-12-20 Inpatient E [facility] 7521 [facility] H 05:54:00 2022-06-30 2022-06-30 Outpatient ML [facility] [id number] [place] 13:30:00 13:30:00 [facility] 2022-06-18 2022-06-18 Nurse Zac Stoner [place] 1.2.840. 114 [id number] [place] 00:00:00 00:00:00 Triage Zac Stoner 350.1.13.58 [facility] MEDICAL 9.2.7.2.686 QUINCY [id number] 0 2022-06-08 2022-06-08 [facility] [id number] [place] 15:00:00 15:00:00 [facility] 2022-06-08 2022-06-08 Outpatient [facility] [id number] [place] 09:00:00 10:47:30 [facility] 2022-05-11 2022-05-11 Office DANITZA Santos 6410 1.2.840.114 14 [id number] [place] 15:20:00 16:35:00 Visit Kandace JEF 350.1.13.58 [facility] 9.2.7.2.686 [id number] 2 2022-04-13 2022-04-13 Outpatient Yen [facility] [id number] 11:46:00 19:12:00 Tricia 32 s 2022-04-13 2022-04-13 Outpatient YEN [facility] [id number] [facility] 11:46:00 19:12:00 ADONAYANTISTAS S 2022-04-10 2022-04-10 Telephone Tammi Giraldo 1.2.840.11 4 [id number] [place] 00:00:00 00:00:00 Tammi Giraldo 350.1.13.58 Health MULTI 9.2.7.2.686 SPECIALTY [id number] CLINIC 1 2022-04-08 2022-04-08 Office DANITZA Bull 6400 1.2.840.114 [id number] [place] 15:30:00 16:00:[address] 350.1.13.58 Health 9.2.7.2.686 [id number] 2 2022-04-06 2022-04-06 Office Faizan, UTP 6410 1.2.840.114 13 [id number] [place] 12:00:00 16:22:35 Visit Kandace SKAGGS 350.1.13.58 Health 9.2.7.2.686 [id number] 2 2022-02-27 2022-02-27 Telephone Tamar, UTP 6410 1.2.840.114 13 [id number] [place] 00:00:00 00:00:[address] 350.1.13.58 Health 9.2.7.2.686 [id number] 1 2022-02-12 2022-02-13 Office Tamar, UTP 6410 1.2.482.703 [id number] [place] 16:10:00 11:16:00 Visit Humble SKAGGS 350.1.13.58 Health 9.2.7.2.686 [id number] 1 2022-01-27 2022-02-04 Inpatient ROWAN, [facility] [id number] [place] 00:00:00 00:00:00 PJ 421 Method i 2022-01-27 2022-01-27 Outpatient CLARA [facility] 021 [id number] [place] 00:00:00 00:00:00 RAYTHEODORE [address] 2022-01-27 2022-01-27 Outpatient TAMAR, [facility] [id number] [place] 00:00:00 00:00:00 HUMBLE 567 Method i 2022-01-27 2022-01-27 Outpatient TAMAR, [facility] [id number] [place] 00:00:00 00:00:00 HUMBLE 670 Method i 2022-01-27 2022-01-27 Outpatient GAURAV, [facility] [id number] [place] 00:00:00 00:00:00 DALE 052 Method i 2022-01-27 2022-01-27 Outpatient CLARA, [facility] [id number] [place] 00:00:00 00:00:00 RAYAN 012 Method i 2022-01-01 2022-01-01 Outpatient SETH, [facility] [id number] [place] 00:00:00 00:00:00 BILL 449 Method i 2021-12-29 2021-12-29 Outpatient LUNA, [facility] [id number] [place] 00:00:00 00:00:00 NYDIAHANCindi 920 Met [place] 2021-12-29 2021-12-29 Outpatient REED, [facility] [id number] [place] 00:00:00 00:00:00 AHMED 919 Method i 2021-12-03 2021-12-03 Outpatient FAZA, [facility] [id number] [place] 00:00:00 00:00:00 ALLAN 022 Method i 2021-11-19 2021-11-19 Outpatient FAZA, [facility] [id number] [place] 00:00:00 00:00:00 ALLAN 844 Method i 2021-10-29 2021-10-29 Outpatient FAZA, [facility] [id number] [place] 00:00:00 00:00:00 ALLAN 978 Method i 2021-10-29 2021-10-29 Outpatient FAZA, [facility] [id number] [place] 00:00:00 00:00:00 ALLAN 151 Method i 2021-10-07 2021-10-07 Outpatient ELVIRA ANGLIN [facility] [id number] [place] 00:00:00 00:00:00 367 Method i 2021-09-02 2021-09-02 Outpatient ELVIRA ANGLIN [facility] [id number] [place] 00:00:00 00:00:00 384 Method i 2021-08-26 2021-08-26 [facility] BP8 [id number] [facility] 06:47:00 06:47:00 w, [address] [facility] are [facility] 2021-08-22 2021-08-22 Outpatient ELVIRA ANGLIN [facility] [id number] [place] 00:00:00 00:00:[address] 2021-08-04 2021-08-04 Outpatient ELVIRA ANGLIN [facility] [id number] [place] 00:00:00 00:00:00 522 Method i 2021-07-09 2021-07-19 Inpatient EM Tessa [facility] [id number] [facility] 14:22:00 14:36:00 Kandace 10 [facility] are [facility] 2021-07-09 2021-07-19 Inpatient EM Tessa [facility] [id number] [facility] 14:22:00 14:36:00 Kandace 51891 [facility] 2021-07-09 2021-07-10 Office SETH, 1.2.840.1 [id number] [id number] [place] 00:00:00 00:00:00 Visit BILL 34957.1.1 [address] .3.426636 .8 2021-07-09 2021-07-09 Outpatient REMEDIOS ZarateNW REF [id number] [facility] 18:56:00 18:56:00 Kandace White [facility] are [facility] 2021-07-09 2021-07-09 Travel 1.2.840.1 1.2.540.387 [id number] Methodi 00:00:00 00:00:[address] 3.430.2.7 0.2.7.3.698 Ho spita .3.590354 084.8 l .8 2021-07-07 2021-07-07 Travel 1.2.840.1 1.2.485.933 1302 [id number] Methodi 00:00:00 00:00:[address] 3.430.2.7 0.2.7.3.698 Ho spita .3.380609 084.8 l .8 2021-07-07 2021-07-07 Telephone [place], 1.2.840.1 [id number] Methodi 00:00:00 00:00:[address] 3.430.2.7 Hospit a .3.273261 l .8 2021-06-24 2021-06-24 Travel 1.2.840.1 1.2.291.153 2241 [id number] Methodi 00:00:00 00:00:[address] 3.430.2.7 0.2.7.3.698 Ho spita .3.585210 084.8 l .8 2021-03-31 2021-03-31 Orders Seth, 1.2.840.1 [id number] 1261 Methodi 00:00:00 00:00:00 Only Bill 49667.1.[address] Lianet 3.430.2.7 Hospit a .3.738021 l .8 2021-03-31 2021-03-31 Orders Corinne, 1.2.840.1 [id number] Methodi 00:00:00 00:00:00 Only Morena [address]7768.1.[address] 3.430.2.7 Hospit a .3.152592 l .8 2021-03-11 2021-03-11 Office Corinne, 1.2.840.1 [id number] 21 [id number] Methodi 09:23:23 10:26:37 Visit Morena 02956.1.[address] 3.430.2.7 Hospit a .3.873530 l .8 2021-03-11 2021-03-11 Travel 1.2.840.1 1.2.792.036 6344 [id number] Methodi 00:00:00 00:00:[address] 3.430.2.7 0.2.7.3.698 Ho spita .3.489431 084.8 l .8 2021-03-102021-03-10 Telephone Reyes Quintero UTP 1.2.840.114 [id number] [place] 00:00:00 00:00:00 HEIGHTS 350.1.13.58 He alth MULTI 9.2.7.2.686 SPECIALTY [id number] CLINIC 8 2021-03-08 2021-03-08 Orders Reyes Quintero UTP 1.2.840.114 12 [id number] [place] 00:00:00 00:00:00 Only HEIGHTS 350.1.13.58 He alth MULTI 9.2.7.2.686 SPECIALTY [id number] CLINIC 8 2021-02-21 2021-02-28 Hospital Rehrer, See Dove 1.2.840.1 104 [id number] Methodi 17:16:00 19:23:00 Encounter Juventino Girard 87852.1.[address] 3.430.2.7 Hospit a .3.295542 l .8 2021-02-06 2021-02-06 Telephone Grabiel Gould 1.2.840.114 [id number] [place] 00:00:00 00:00:00 BELLAIRE 350.1.13.58 H [facility] MEDICAL 9.2.7.2.686 BUILDING [id number] 3 2021-02-05 2021-02-05 Telephone Grabiel Gould UTP 1.2.840.114 [id number] [place] 00:00:00 00:00:00 BELLAIRE 350.1.13.58 H [facility] MEDICAL 9.2.7.2.686 [facility] [id number] 3 2021-01-31 2021-01-31 Outpatient [facility] DAYS BP8 [id number] [facility] 07:22:00 07:22:00 w, [address] [facility] 2021-01-24 2021-01-24 AppointDANITZA Rose Cardiology [id number] [place] 14:30:00 14:30:00 t; [facility] VASCULAR, Medical [facility] 2021-01-16 2021-01-16 Appointmen DANITZA GOULD Cardiology [id number] [place] 15:45:00 15:45:00 t; GRABIEL GOULD M.D. - [place] Vini SPAIN Medical [facility] Donna [place] 2021-01-16 2021-01-16 DANITZA Markham Non-Invasiv 7 [id number] [place] 15:00:00 15:00:00 t; ECHO e - [place] Phys ici [facility] 2020-12-31 2020-12-31 Outpatient [place] Card MHOIP MHOIP [id number] 10:51:00 23:59:00 Laine 11 2020-12-26 2020-12-26 AppointDANITZA David Multispecia [id number] [place] 15:15:00 15:15:00 t; GRABIEL GOULD M.D. [facility] - Carlotta Fan M.D. 2020-12-05 2020-12-05 [facility] [id number] [facility] 16:11:00 16:11:00 w, 54 [facility] n [facility] 2020-11-21 2020-11-21 Appointmen CO19, [facility] UTP [id number] [place] 10:30:00 10:30:00 t; COMasha, NURSE-COOLE Vini lazo NURSE-COOL Y [facility] 2020-11-19 2020-11-19 DANITZA Dougherty Obstetrics [id number] [place] 10:45:00 10:45:00 t; JERSEY CARD M.D. and Vini SAINZ Gynecology [facility] Donna [facility] 2020-11-14 2020-11-14 Akua BOYLE [facility] Family [id number] [place] 15:40:00 15:40:00 t; HUMBLE, Nohelia - Raphael BOYLE M.D. [facility] Nathan REYES M.D. [place] 2020-10-29 2020-10-29 Appointradha QUINTERO, DANITZA UTP [id number] [place] 09:20:00 09:20:00 t; REYES QUINTERO M.D. P hysici MARC, M.D. [facility] 2020-10-26 2020-10-26 Appointradha COMasha, UTP UTP [id number] [place] 10:20:00 10:20:00 t; CO19, NURSE-COOLE P [place] NURSE-COOL Y ans EY 2020-10-14 2020-10-14 Akua [facility] Psychiatry 70 [id number] [place] 16:00:00 16:00:00 t; RIZWAN, Outpatient Raphael MCHUGH M.D. [facility] - [facility] SMOOTH ASTORGA M.D. 2020-09-03 2020-09-03 Akua [facility] [id number] [place] 10:20:00 10:20:00 t; REYES QUINTERO M.D. P [place] WOODS M.D. [facility] 2020-08-12 2020-08-12 Akua [facility] Psychiatry [id number] [place] 16:00:00 16:00:00 t; RIZWAN, Outpatient Raphael MCHUGH M.D. [facility] - [facility] SMOOTH ASTORGA M.D. 2020-07-29 2020-07-29 Outpatient [facility] [id number] 14:31:00 23:59:00 Davis Puente 10 2020-07-29 2020-07-29 Akua STEEL [facility] Cardiothora [id number] [place] 15:00:00 15:00:00 t; DAVIS STEEL cic & Raphael LESTER M.D. Vascular shalom Thompson Surgery - [facility] 2020-07-26 2020-07-26 Outpatient Ch[place], MHPL MHPL [id number] 17:10:28 20:32:00 Russ Darling 31 2020-07-26 2020-07-26 Emergency E CHUKWUMA, MHBL MHBL [id number] MHBL 17:10:00 20:32:00 RUSS 2020-07-23 2020-07-23 Appointradha [facility] Multispecia [id number] [place] 09:00:00 09:00:00 t; REYES QUINTERO M.D. [facility] - [facility] Josh WOODS M.D. [facility] [address] 2020-07-12 2020-07-16 Outpatient Damián [facility] [id number] 05:55:00 17:52:00 Davis Puente 30 2020-07-12 2020-07-16 Inpatient DAMIÁN [facility] [id number] [facility] 05:55:00 17:52:00 DAVIS 2020-07-12 2020-07-12 Akua STEEL [facility] [id number] [place] 08:30:00 08:30:00 t; DAVIS STEEL Phy sici PHILIP, M.D. ans M.D. 2020-07-12 2020-07-12 Outpatient Damián [facility] [id number] 05:55:00 05:55:00 Davis Puente 30 2020-06-18 2020-06-18 Outpatient Damián MHPL MHPL [id number] 10:18:00 23:59:00 Davis Puente 29 2020-06-18 2020-06-18 Outpatient DAMIÁN, MHBL ED [id number] MHBL 10:18:00 10:18:00 DAVIS 2020-06-17 2020-06-17 Akua MCHUGH [facility] Psychiatry [id number] [place] 16:00:00 16:00:00 t; RIZWAN, Outpatient Raphael MCHUGH M.D. [facility] - [facility] SMOOTH ASTORGA M.D. 2020-05-28 2020-05-28 Akua STEEL [facility] Cardiothora [id number] [place] 15:00:00 15:00:00 t; DAVIS STEEL, [facility] & Raphael LESTER M.D. Vascular [facility] Donna Surgery - [facility] 2020-05-20 2020-05-20 Akua REBOLLAR [facility] [id number] [place] 14:00:00 14:00:00 t; Donna HEWITT Surgery - [facility] [place] Nathan Cesar M.D. [place] 2020-05-07 2020-05-07 Akua GURROLA [facility] [id number] [place] 13:30:00 13:30:00 t; Radha Mariscal i, an s [facility], M.D. KRISTOFER, M.D. 2020-04-22 2020-04-22 Akua MCHUGH [facility] Psychiatry [id number] [place] 16:00:00 16:00:00 t; RIZWAN, Outpatient Raphael MCHUGH M.D. Clinic - [facility] SMOOTH ASTORGA M.D. 2020-03-05 2020-03-05 Appointradha QUINTERO [facility] [id number] [place] 10:20:00 10:20:00 t; REYES QUINTERO M.D. Surgery - Josh WOODS M.D. [facility] 2020-01-22 2020-01-22 Akua SILVA, [facility] Minimally [id number] [place] 14:00:00 14:00:00 t; Brittney SETH M.D. [facility] Reji SETH M.D. ([facility]) 2020-01-08 2020-01-08 Akua SILVA, [facility] [id number] [place] 14:45:00 14:45:00 t; Anders SETH M.D. ans RICHARD, M.D. 2019-11-15 2019-11-26 Outpatient Andrassy, [facility] [id number] 06:09:00 14:00:00 Dorinda Royal 27 2019-11-15 2019-11-26 Inpatient [facility]ASSY[id number] 06:09:00 14:00:00 DORINDA 2019-11-15 2019-11-15 Akua SILVA, [facility] Family [id number] [place] 08:00:00 08:00:00 t; DORINDA Medicine - Funmi SILVA M.D. [facility] DORINDA [facility] Hanna. [place] 2019-11-15 2019-11-15 Akua DOUGHERTY [facility] [id number] [place] 07:30:00 07:30:00 t; Donna RICE ans AMIT, M.D. 2019-10-31 2019-10-31 Akua GURROLA [facility] Cardiothora [id number] [place] 14:00:00 14:00:00 t; W, cic & Physic i DAVID HENSON, Vascular a rios EPPS M.D. [facility] 2019-10-31 2019-10-31 Akua BOYLE, [facility] Family [id number] [place] 09:30:00 09:30:00 t; HUMBLE Medicine - Raphael BOYLE M.D. [facility] 2019-10-10 2019-10-10 Appointradha GURROLA [facility] [id number] [place] 14:00:00 14:00:00 t; W, Physic i theodore HERNANDEZ M.D. KRISTOFER, M.D. 2019-10-10 2019-10-10 Appointradha [facility] [id number] [place] 11:20:00 11:20:00 t; REYES QUINTERO M.D. P hysici MARC, M.D. [facility] 2019-10-01 2019-10-06 Outpatient Molsteven, [facility] [id number] 01:07:00 18:45:00 Ulises Ganw 2019-10-01 2019-10-06 Inpatient U JACI, [facility] [id number] 01:07:00 18:45:00 ULISES 2019-09-28 2019-09-28 Appointradha [facility] [id number] [place] 15:30:00 15:30:00 t; LIANET LOUIS Medicine - Josh MARTINI M.D. [facility] 2019-08-15 2019-08-15 Appointradha [facility] Cardiothora [id number] [place] 11:15:00 11:15:00 t; W, cic & Physic i DAVID HENSON Vascular a rios EPPS M.D. Surgery - [facility] 2019-08-11 2019-08-11 Akua MCHUGH [facility] Psychiatry [id number] [place] 16:00:00 16:00:00 t; RIZWAN, Outpatient Raphael MCHUGH M.D. [facility] SMOOTH Fuentes M.D. 2019-08-03 2019-08-03 AppointDANITZA David Multispecia [id number] [place] 15:00:00 15:00:00 t; GRABIEL GOULD M.D. lty - P Carlotta Garrett [facility] Donna 2019-07-31 2019-07-31 Akua MCHUGH [facility] [id number] [place] 15:00:00 15:00:00 t; Radha ASTORGA i, M.D. ans SILVIA, M.D. 2019-07-26 2019-07-27 Outpatient [facility] [id number] 11:35:00 19:17:00 w Mike TobarJustice 2019-07-25 2019-07-25 Appointradha MANZANO, [facility] Minimally [id number] [place] 11:00:00 11:00:00 t; Donna MEEK Invasive Ph dorinda MANZANO, [facility] sh[facility]om MEEK M.D. [place] ([facility]) 2019-07-26 2019-07-24 Inpatient [facility] [id number] 11:35:00 12:26:00 2019-07-21 2019-07-[facility] [id number] [place] 12:00:00 12:00:00 t; W, cic & Physic i DAVID HENSON Vascular a rios EPPS M.D. Surgery [facility] 2019-07-21 2019-07-21 [facility], [facility] UTP [id number] [place] 10:00:00 10:00:00 t; [facility] Physic i VASCULAR [facility] 2019-07-17 2019-07-17 Appointradha SILVA, [facility] Minimally [id number] [place] 14:00:00 14:00:00 t; Brittney SETH M.D. [facility] Reji Morelos M.D. ([facility]) 2019-06-13 2019-06-13 [facility] [facility] [id number] [place] 10:00:00 10:00:00 t; W, cic & Physic i DAVID HENSON Vascular a rios EPPS M.D. Surgery Jeanie HENSON M.D. 2019-06-12 2019-06-12 Appointradha DOUGH[place], [facility] UTP [id number] [place] 14:45:00 14:45:00 t; Donna RICE ans AMIT, M.D. 2019-05-30 2019-05-30 Outpatient Farhat SL MHSL [id number] 10:24:00 14:52:00 Paulo Johnson 25 2019-05-30 2019-05-30 [facility] [place], [facility] [id number] [place] 12:00:00 12:00:00 t; Donna RICE ans AMIT, M.D. 2019-05-30 2019-05-30 Outpatient MHFB MHFB [id number] MHFB 10:24:00 10:24:00 2019-05-11 2019-05-11 Akua STEVEN [facility] Cardiology 56 [id number] [place] 16:00:00 16:00:00 t; [facility] 2019-05-11 2019-05-11 Akua GOULD, [facility] [id number] UT 14:45:00 14:45:00 t; GRABIEL GOULD M.D. P hysici POYEE, ans M.D. 2019-05-01 2019-05-01 [facility] LOLITA, [facility] [id number] [place] 15:00:00 15:00:00 t; Radha ASTORGA i, M.D. ans SILVIA, M.D. 2019-04-25 2019-04-25 [facility] FRAHAT, [facility] [id number] UT 14:30:00 14:30:00 t; Donna RICE ans AMIT, M.D. 2019-04-24 2019-04-24 Akua SILVA, [facility] [id number] [place] 14:30:00 14:30:00 t; Anders SETH M.D. ans RICHARD, M.D. 2019-04-06 2019-04-06 Outpatient RAMIREZ SainzP OIP [id number] 14:15:00 23:59:00 Marlys 2019-04-03 2019-04-03 Akua SILVA, [facility] UTP [id number] [place] 13:00:00 13:00:00 t; Anders SETH M.D. ans RICHARD, M.D. 2019-03-27 2019-03-27 Akua TavarezYENGAR, [facility] UTP [id number] UT 14:45:00 14:45:00 t; Donna CANALES [facility] shalom SAINZ M.D. 2019-03-21 2019-03-21 [facility] ROSALIO-OU [facility] UTP [id number] [place] 11:15:00 11:15:00 t; W Physic i theodore HERNANDEZ M.D. KRISTOFER, M.D. 2019-03-21 2019-03-21 Appointmen VASCULAR, [facility] UTP [id number] [place] 09:30:00 09:30:00 t; [facility] Physic i VASCULAR, [facility] 2019-02-23 2019-02-23 Appointmen JANELL, [facility] UTP [id number] UT 13:45:00 13:45:00 t; LIVAN MACIEL P hysici CHRISTINE, M.D. ans M.D. 2019-02-14 2019-02-14 [facility] UTP [id number] [place] 13:30:00 13:30:00 t; [place] Physic i theodore HERNANDEZ M.D. KRISTOFER, M.D. 2019-01-25 2019-01-25 Outpatient Nicola [facility] [id number] 05:46:00 12:43:00 Esteban Zepeda 24 2019-01-25 2019-01-25 Outpatient [facility] 7524 [facility] 05:46:00 05:46:00 2019-01-16 2019-01-16 Appointmen NICOLA, [facility] UTP [id number] UT 13:45:00 13:45:00 t; ESTEBAN PETERSEN M.D. Physici BRUCE, ans M.D. 2019-01-16 2019-01-16 Appointmen VASCULAR, [facility] UTP [id number] [place] 09:30:00 09:30:00 t; [facility] Physic i VASCULAR, [facility] 2019-01-06 2019-01-06 Verenicemen LOLITA, [facility] UTP [id number] UT 15:00:00 15:00:00 t; Radha ASTORGA i, M.D. ans SILVIA, M.D. 2019-01-05 2019-01-05 Appointmen NICOLA, UTP UTP [id number] UT 13:45:00 13:45:00 t; ESTEBAN PETERSEN M.D. Physici BRUCE, ans M.D. 2019-01-03 2019-01-03 Appointmen TONY, UTP UTP [id number] UT 10:20:00 10:20:00 t; REYES QUINTERO M.D. P hysici MARC, M.D. [facility] 2019-01-02 2019-01-02 Outpatient Nicola, [facility] [id number] 06:15:00 12:30:00 Esteban Zepeda 23 2019-01-02 2019-01-02 Outpatient [facility] 7523 [facility] 06:15:00 06:15:00 2018-12-28 2018-12-28 Outpatient Dougherty, [facility] [id number] 14:09:00 23:59:00 Paulo Johnson 22 2018-12-28 2018-12-28 Appointmen NICOLA, UTP UTP [id number] UT 15:00:00 15:00:00 t; ESTEBAN PETERSEN M.D. Physici BRUCE, ans M.D. 2018-12-28 2018-12-28 Appointmen FARHAT, [facility] UTP [id number] UT 14:30:00 14:30:00 t; Donna RICE ans AMIT, M.D. 2018-12-28 2018-12-28 Outpatient [facility] 7522 [facility] 14:09:00 14:09:00 2018-12-28 2018-12-28 Appointmen VASCULAR, UTP UTP [id number] UT 08:30:00 08:30:00 t; [facility] Physic i VASCULAR, [facility] 2018-12-19 2018-12-21 Outpatient Estes, [facility] [id number] 16:36:00 16:00:00 Suraj Jansen 21 2018-11-28 2018-11-28 Appointmen VASCULAR, UTP UTP [id number] UT 11:45:00 11:45:00 t; SURGERY Physic i VASCULAR, ans SURGERY 2018-11-22 2018-11-22 Appointmen VASCULAR, UTP UTP [id number] UT 13:30:00 13:30:00 t; SURGERY Physic i VASCULAR, ans SURGERY 2018-11-11 2018-11-11 Appointradha ANN, UTP UTP [id number] UT 12:00:00 12:00:00 t; ROSELYN ANN M.D. Physici TODD, M.D. [facility] 2018-11-10 2018-11-10 Outpatient [place] [facility] [id number] 05:35:00 23:59:00 w, 20 Justice Jansen 2018-10-27 2018-10-27 [facility] UTP [id number] [place] 14:00:00 14:00:00 t; W, Physic i ROSALIO-O theodore HENSON M.D. KRISTOFER, M.D. 2018-10-27 2018-10-27 Appointmen VASCULAR, UTP UTP [id number] UT 12:00:00 12:00:00 t; [facility] Physic i VASCULAR, [facility] 2018-10-17 2018-10-17 Appointmen RICARDO, UTP UTP [id number] UT 10:00:00 10:00:00 t; Anders SETH M.D. ans RICHARD, M.D. 2018-10-14 2018-10-14 Appointmen NAVIN, [facility] UTP [id number] UT 09:15:00 09:15:00 t; RADHA HOLDEN Phys ici SUMANA, M.D. ans M.D. 2018-09-28 2018-09-28 Outpatient Rosalio-Ou [facility] [id number] 07:40:00 23:59:00 w, 19 Justice Jansen 2018-08-25 2018-08-25 Appointmen JANELL, UTP UTP [id number] UT 13:00:00 13:00:00 t; LIVAN MACIEL P hysici CHRISTINE, M.D. ans M.D. 2018-08-15 2018-08-15 Appointmen ANDHEIDE, UTP UTP [id number] [place] 09:30:00 09:30:00 t; DORINDA Physi Donna Delaney M.D. 2018-08-09 2018-08-09 Appointmen [facility] UTP [id number] UT 11:15:00 11:15:00 t; W, Physic i ORSALIO-O theodore HENSON M.D. KRISTOFER, M.D. 2018-07-27 2018-07-27 Outpatient [place] [facility] [id number] 07:23:00 23:59:00 wKelby 2018-07-26 2018-07-26 Appointmen JANELL, [facility] UTP [id number] UT 13:00:00 13:00:00 t; LIVAN MACIEL P hysici CHRISTINE, M.D. ans M.D. 2018-07-21 2018-07-21 Outpatient [facility] [id number] 11:43:00 23:59:00 Lianet Puente 17 2018-07-19 2018-07-19 [facility] UTP [id number] [place] 10:30:00 10:30:00 t; W, Physic i theodore HERNANDEZ M.D. KRISTOFER, M.D. 2018-07-15 2018-07-15 Appointmen NAVIN, [facility] UTP [id number] UT 09:45:00 09:45:00 t; RADHA HOLDEN Phys ici SUMANA, M.D. ans M.D. 2018-07-05 2018-07-05 [facility] TONY, [facility] UTP [id number] UT 10:40:00 10:40:00 t; REYES QUINTERO M.D. P hysici MARC, M.D. [facility] 2018-06-30 2018-06-30 [facility] GENERAL, [facility] UTP [id number] UT 14:00:00 14:00:00 t; SERVICE Physic i GENERAL, ans SERVICE 2018-06-28 2018-06-28 [place] [id number] Common 16:29:00 16:29:00 t Bone Bone and Spiri t and Joint [facility] - [facility] 2018-06-28 2018-06-28 Appointmen JANELL, UTP UTP [id number] UT 13:00:00 13:00:00 t; LIVAN MACIEL P hysici CHRISTINE, M.D. ans M.D. 2018-06-23 2018-06-23 Outpatient Corie [place] [id number] Common 11:50:00 11:50:00 t Bone Bone and Spiri t and Joint Joint - [facility] 2018-06-22 2018-06-22 [place] [facility] [id number] Common 08:44:00 08:44:00 t Bone Bone and Spiri t and Joint Joint - [facility] 2018-06-21 2018-06-21 Out[place] [facility] [id number] Common 13:07:00 13:07:00 t Bone Bone and Spiri t and Joint Joint - [facility] 2018-06-20 2018-06-20 Outpatient Corie [facility] [id number] Common 10:00:00 10:00:00 t Bone Bone and Spiri t and Joint Joint - [facility] 2018-06-17 2018-06-17 Appointmen MED UTP UTP [id number] UT 10:00:00 10:00:00 t; MED PROVIDER, Phys ici PROVIDER, TCM ans TCM 2018-06-16 2018-06-16 Appointmen GENERAL, UTP UTP [id number] UT 13:00:00 13:00:00 t; SERVICE Physic i GENERAL, ans SERVICE 2018-05-22 2018-06-09 Outpatient MesserPatrice [facility] [id number] 22:33:00 21:00:00 45 2018-05-17 2018-05-17 [facility] Amaris, [facility] UTP [id number] UT 13:00:00 13:00:00 t; Donna Woodruff Ph, ans Jorge, M.D. 2018-05-11 2018-05-11 Outpatient Farhat [facility] [id number] 10:13:00 23:59:00 Paulo Jolley 2018-05-11 2018-05-11 [facility] FARHAT, [facility] UTP [id number] UT 10:30:00 10:30:00 t; Donna RICE ans AMIT, M.D. 2018-05-10 2018-05-10 Outpatient Karen, [facility] [id number] 10:03:00 23:59:00 Garret Pb 08 2018-05-03 2018-05-03 Appointmen Amaris, UTP UTP [id number] UT 11:30:00 11:30:00 t; Donna Woodruff Ph, ans Jorge, M.D. 2018-04-26 2018-04-26 [facility] KAREN, UTP UTP [id number] UT 11:00:00 11:00:00 t; Anders TOMLINSON M.D. ans Donna TOMLINSON 2018-04-22 2018-04-22 [facility] NAVIN, [facility] UTP [id number] UT 09:15:00 09:15:00 t; RADHA HOLDEN Phys ici SUMANA, M.D. ans M.D. 2018-04-13 2018-04-13 [facility] [id number] 10:18:00 23:59:00 Paulo Johnson 15 2018-04-13 2018-04-13 [facility] FARHAT, UTP UTP [id number] UT 10:30:00 10:30:00 t; Donna RICE ans AMIT, M.D. 2018-03-22 2018-04-05 Outpatient Serayefridaniel, [facility] [id number] 14:47:00 18:30:00 Cameron A 84 2018-03-24 2018-03-24 [facility] FARHAT, UTP UTP [id number] UT 17:00:00 17:00:00 t; Donna RICE ans AMIT, M.D. 2018-03-17 2018-03-17 Akua DAVID, DANITZA UTP [id number] UT 10:30:00 10:30:00 t; MARYBETH DAVID Phy sici SHEILA, M.D. ans M.D. 2018-03-08 2018-03-08 Akua Glez, UTP UTP [id number] UT 10:15:00 10:15:00 t; Donna Woodruff Ph, ans Jorge, M.D. 2018-02-15 2018-02-15 Appointmen LETY, [facility] UTP [id number] UT 12:00:00 12:00:00 t; ADEEL DAVIDSON P hysici CARMISHA, [employer] ans [employer] 2018-02-08 2018-02-08 Appointmen Amaris, UTP UTP [id number] UT 13:45:00 13:45:00 t; Donna Woodruff [facility] Amaris [facility] Donna Woodruff 2018-01-19 2018-01-19 Appointmen JOANN, UTP UTP [id number] UT 10:30:00 10:30:00 t; MARYBETH DAVID Phy sici SHEILA, M.D. ans M.D. 2018-01-19 2018-01-19 Appointmen VASCULAR, UTP UTP [id number] UT 09:00:00 09:00:00 t; [place] Physi ci VASCULAR, [facility] 2018-01-13 2018-01-13 Outpatient Joann [facility] [id number] 07:12:00 23:59:00 Marybeth Jansen 13 2017-12-27 2017-12-27 Appointmen JOANN, [facility] [id number] UT 09:00:00 09:00:00 t; MARYBETH DAVID Multi Phy yuan RUEDA M.D. Specialty [facility] Donna 2017-12-09 2017-12-09 Appointmen VASCULAR, [facility] [id number] UT 12:00:00 12:00:00 t; [place] Multi Physi ci VASCULAR, Specialty [facility] 2017-12-06 2017-12-06 Appointmen JOANN, UTP [place] [id number] UT 10:45:00 10:45:00 t; MARYBETH DAVID Multi Phsourav RUEDA M.D. Specialty shalom Thompson 2017-11-02 2017-11-02 Outpatient Cole [facility] [id number] 09:26:00 12:15:00 Riaz Royal 12 2017-10-29 2017-10-29 Outpatient Cathryn [facility] [id number] 10:35:00 16:50:00 Dio W 11 2017-10-14 2017-10-14 [facility] CATHRYN, [facility] UTP [id number] UT 15:00:00 15:00:00 t; DIO LOCKETT M.D. Physici KEVIN, ans M.D. 2017-09-27 2017-09-27 [facility] [id number] 07:30:00 07:30:00 Dio W 10 2017-07-08 2017-07-08 [facility] CATHRYN, [facility] UTP [id number] UT 14:45:00 14:45:00 t; DIO LOCKETT M.D. Physici KEVIN, ans M.D. 2017-06-07 2017-06-08 Outpatient Leah, [facility] [id number] 18:37:00 02:55:00 Laine 09 Luis Alberto 2017-03-04 2017-03-04 [facility] CATHRYN, [facility] UTP [id number] UT 14:15:00 14:15:00 t; DIO LOCKETT M.D. Physici KEVIN, ans M.D. 2016-12-31 2016-12-31 [facility] CATHRYN, DANITZA UTP [id number] UT 14:30:00 14:30:00 t; DIO LCOKETT M.D. Physici KEVIN, ans M.D. 2016-09-15 2016-09-15 [facility] DANITZA CASTRO UTP [id number] UT 14:00:00 14:00:00 t; FEDERICO CASTRO M.D. Physici ERIK, M.D. [facility] 2016-09-03 2016-09-03 [facility] CATHRYN, [facility] UTP [id number] UT 14:30:00 14:30:00 t; DIO LOCKETT M.D. Physici KEVIN, ans M.D. 2016-07-14 2016-08-12 Outpatient Cathryn [facility] [id number] 07:37:00 23:59:00 Dio Mariscal 2016-07-03 2016-07-05 Outpatient Kevin [facility] [id number] 17:32:00 14:45:00 Uddin 06 2016-06-11 2016-06-11 [facility] CATHRYN, DANITZA UTP [id number] UT 14:15:00 14:15:00 t; DIO LOCKETT M.D. Physici KEVIN, ans M.D. 2016-05-07 2016-05-07 [facility] DANITZA LOCKETT UTP [id number] UT 14:45:00 14:45:00 t; DIO LOCKETT M.D. Physici KEVIN, ans M.D. 2016-02-25 2016-02-25 Outpatient MHIE MHIE [id number] Memoria 11:00:00 11:00:00 06 yenny Barba 2016-02-06 2016-02-06 [facility] DANITZA LOCKETT UTP [id number] UT 14:45:00 14:45:00 t; DIO LOCKETT M.D. Physici KEVIN, ans M.D. 2016-02-04 2016-02-04 Outpatient Kev 2.16.840. 2.16.840.1. 3 [id number] 12:46:00 23:59:00 Angie [id number]. [id number] 3.615.30 5.30 2016-02-04 2016-02-04 Outpatient MHIE MHIE [id number] Memoria 11:00:00 11:00:00 05 yenny Barba 2016-01-20 2016-01-27 Outpatient Benito [facility] [id number] 05:22:00 15:10:00 Baraa 2016-01-20 2016-01-20 Outpatient MHIE MHIE [id number] Memoria 08:00:00 08:00:00 04 yenny Barba 2015-12-31 2015-12-31 Outpatient MHIE MHIE [id number] Memoria 13:30:00 13:30:00 03 yenny Barba 2015-12-17 2015-12-17 Outpatient MHIE MHIE [id number] Memoria 13:00:00 13:00:00 02 yenny Barba 2015-10-29 2015-10-29 Outpatient MHIE MHIE [id number] Memoria 10:30:00 10:30:00 01 yenny Barba 2015-10-16 2015-10-16 Outpatient Arnaldo Torres [facility] [id number] 12:01:00 23:59:00 Ranjith 04 2015-10-14 2015-10-14 Outpatient IE [facility] [id number] Memoria 10:30:00 10:30:00 00 yenny Barba 2015-06-15 2015-06-17 Outpatient Andrassy, [facility] [id number] 20:02:00 18:00:00 Dorinda Royal 69 2015-04-17 2015-05-16 Outpatient Mckeon, [facility] [id number] 12:45:00 23:59:00 Reena Pb 00 2015-05-09 2015-05-09 Outpatient Licona, [facility] [id number] 10:40:00 17:00:00 Cirilo Donald 2015-04-23 2015-05-01 Outpatient Andrassy, [facility] [id number] 07:28:00 13:15:00 Dornida Royal 03 2015-03-28 2015-03-28 Outpatient Andrassy, 2.16.840. 2.16.840.1. [id number] 10:08:00 23:59:00 Dorinda Royal [id number]. [id number] 3.615.0.1 5.0.728 81 8956-06-11 2015-02-28 Outpatient Kumari, 2.16.840. 2.16.840.1. [id number] 13:23:00 23:59:00 Frida Alva [id number]. [id number] 02 3.615.0.1 5.0.482 89 5607-03-04 2014-11-21 Outpatient Cathryn, 2.16.840. 2.16.840.1. 3 [id number] 11:32:00 23:59:00 Dio Mariscal [id number]. [id number] 01 3.615.0.1 5.0.101 01 Results Test Description Test Time Test Comments Results Result Comments Source GLUBED 2021-08-26 13:19:00 Test Item Value Reference Range Interpretation Comme nts GLUBED (test code = GLUBED) 178 MG/DL 70-105 H [id number] 12:54:00 Test Item Value Reference Range Interpretation Comments GLUBED (test code = GLUBED) 127 MG/DL 70-105 H BASIC METABOLIC [id number] 08:59:00 Test Item Value Reference Range Interpretation [...] Range Oct 2020 COVID 19 Asymptomatic IH [id number] 08:45:00 Test Item Value Reference Range Interpretation [...] and symptomsconsist ent with COVID-19. CBC W/AUTO [id number] 08:37:00 Test Item Value Reference Range Interpretation [...] 0.08 x10 3/uL 0.0-0.20 N COMPREHENSIVE METABOLIC [id number] 06:39:00 Test Item Value Reference Range Interpretation [...] ALKP) Reference Range Oct 2020 CBC W/AUTO [id number] 06:35:00 Test Item Value Reference Range Interpretation [...] 0.08 x10 3/uL 0.0-0.20 N BLOOD GAS [id number] 23:13:00 Test Item Value Reference Range Interpretation [...] 26.1 MMOL/L 24-30 N code = TCO2A) PaO2/[id number] 23:13:00 Test Item Value Reference Range Interpretation Comments PaO2/FiO2 (test code = [id number]) 456.20 >200 BASIC METABOLIC [id number] 04:33:00 Test Item Value Reference Range Interpretation [...] CA) Reference Range Oct 2020 COMPREHENSIVE METABOLIC [id number] 04:33:00 Test Item Value Reference Range Interpretation [...] ALKP) Reference Range Oct 2020 CBC W/AUTO [id number] 04:19:00 Test Item Value Reference Range Interpretation [...] BA#) 0.07 x10 3/uL 0.0-0.20 N LACTIC [id number] 05:17:00 Test Item Value Reference Range Interpretation Comments LACTIC ACID (test code = LACT) 0.70 mmol/L 0.5-2.0 N COMPREHENSIVE METABOLIC [id number] 05:04:00 Test Item Value Reference Range Interpretation [...] ALKP) Reference Range Oct 2020 CBC W/AUTO [id number] 04:16:00 Test Item Value Reference Range Interpretation [...] 0.04 x10 3/uL 0.0-0.20 N BASIC METABOLIC [id number] 12:15:00 Test Item Value Reference Range Interpretation [...] CA) Reference Range Oct 2020 CBC W/AUTO [id number] 11:54:00 Test Item Value Reference Range Interpretation [...] 3/uL 0.0-0.20 N - XR CHEST 1 [id number] 11:21:00 [facility] : 1955 Sex: FPatient Name: DESTINEY PRITCHARD Unit No: [id number] EXAMS: CPT CODE: [id number] XR CHEST 1 V 44551 EXAM: Chest one view. Location: A1 HISTORY: congestion COMPARISON: 07/14/2021 FINDINGS: Duallumen right internal jugular central venous catheter is identified with tip at the cavoatrial junction. Cardiac silhouette is mildly enlarged. There is prominence of central pulmonary vessels and interstitial markings, improved since prior study. Airspace opacities are present at bilateral lung bases.There are no pleural effusions or pneumothorax. There is diffuse osteopenia. Spondylosis is present throughout the thoracic spine. IMPRESSION: Diffuse interstitial and basilar airspace airspace opacities are slightly improved since prior study, likely represent underlying edema. at 1121 Reported and signed by: TASHIA RAMIREZ M.D. CC: Justice Marsh MD; Kandace Zarate MD; Dorinda Mayfield MD Technologist: Adolfo Puente Fluoro Time: DAP (Gy m2): Air Kerma (mGy): Trscr Dt/Tm: 07/16/2021 (112) by:[email or web address] Printed Date/Time: 07/16/2021 (112) Name: DESTINEY PRITCHARD [facility] Phys: Dorinda Robles MD [address] : 1955 Age: 66 Sex: [place] [id number] Loc: [id number] 1 Exam Date: 07/16/2021 Status: ADM IN PH: FAX: PAGE 1 Signed [id number] 08:41:00 Test Item Value Reference Range Interpretation Comments GLUBED (test code = GLUBED) 156 MG/DL 70-105 H - XR CHEST 1 [id number] 08:06:00 [facility] : 1955 Sex: FPatient Name: DESTINEY PRITCHARD Unit No: [id number] EXAMS: CPT CODE: [id number] XR CHEST 1 V [id number] CHEST, SINGLE VIEW DICTATION LOCATION A1 HISTORY: Infiltrates. A single view of the chest at4:05 AM was compared to a prior exam from July 13, 2021. FINDINGS: Patchy bibasilar infiltrates are stable along with cardiomegaly and central pulmonary vascular congestion. Right dialysis catheteris unchanged. No new findings are seen. IMPRESSION: No change from the prior exam. ElectronicallySigned by Junior Hubbard Jr, MD on 07/14/2021 at 0806 Reported and signed by: Junior Hubbard Jr, MD CC: Justice Marsh MD; Kandace Zarate MD Technologist: Jazmine Alves Time: DAP(Gy m2): Air Kerma (mGy): Trscr Dt/Tm: 07/14/2021 (805) by:Cookie Printed Date/Time: 07/14/2021 (809) Name: DESTINEY PRITCHARD [facility] Phys: Kandace Pretty MD [address] : 1955 Age: 66 Sex: F [place], [place] [id number] Loc: [id number] 1 Exam Date: 07/14/2021 Status: ADM IN PH: FAX: PAGE 1 Signed ReportBASIC METABOLIC [id number] 04:46:00 Test Item Value Reference Range Interpretation [...] CA) Reference Range Oct 2020 COMPREHENSIVE METABOLIC [id number] 04:46:00 Test Item Value Reference Range Interpretation [...] code = ALKP) Reference Range Oct 2020 [id number] 04:46:00 Test Item Value Reference Range Interpretation Comments PHOSPHOROUS (test code 6.5 mg/dL 2.4-5.1 H Pleas e note: New = PHOS) Reference Range Oct 2020 [id number] 04:46:00 Test Item Value Reference Range Interpretation Comments MAGNESIUM (test code = 1.9 mg/dL 1.6-2.6 N Pleas e note: New MAG) Reference Range Oct 2020 CBC W/AUTO [id number] 04:19:00 Test Item Value Reference Range Interpretation [...] = BA#) 0.01 x10 3/uL 0.0-0.20 N [id number] 01:37:00 Test Item Value Reference Range Interpretation Comments GLUBED (test code = GLUBED) 166 MG/DL 70-105 H [id number] 20:07:00 Test Item Value Reference Range Interpretation Comments GLUBED (test code = GLUBED) 174 MG/DL 70-105 H [id number] 11:36:00 Test Item Value Reference Range Interpretation Comments GLUBED (test code = GLUBED) 181 MG/DL 70-105 H [id number] 07:45:00 Test Item Value Reference Range Interpretation Comments GLUBED (test code = GLUBED) 192 MG/DL 70-105 H - XR CHEST 1 [id number] 07:04:00 [facility] : 1955 Sex: FPatient Name: DESTINEY PRITCHARD Unit No: [id number] EXAMS: CPT CODE: [id number] XR CHEST 1 V 97160 Chest one view portable 07/13/2021 CLINICAL INDICATION: Hypotension COMPARISON: The previousday LOCATION: W1 IMPRESSION: Cardiomediastinal contours are stable. There is been development of mild pulmonary edema. A tunneled right hemodialysis catheter is present. at 0704 Reported and signed by: AMANDA CRUZ M.D. CC: Justice Marsh MD; Kandace Zarate MD Technologist: Jazmine Alves Time: DAP (Gy m2): AirKerma (mGy): Trscr Dt/Tm: 07/13/2021 (703) by:[email or web address] Printed Date/Time: 07/13/2021 (706) Name:DESTINEY PRITCHARD [facility] Phys: Kandace Pretty MD [address] : 1954 Age: 66 Sex: F [place] e[place]rrera [id number] [id number] Loc: P.[id number] 1 Exam Date: 07/13/2021 Status: ADM IN PH: FAX: PAGE 1 Signed ReportBASIC METABOLIC [id number] 04:25:00 Test Item Value Reference Range Interpretation [...] CA) Reference Range Oct 2020 COMPREHENSIVE METABOLIC [id number] 04:25:00 Test Item Value Reference Range Interpretation [...] code = ALKP) Reference Range Oct 2020 [id number] 04:25:00 Test Item Value Reference Range Interpretation Comments PHOSPHOROUS (test code 5.4 mg/dL 2.4-5.1 H Pleas e note: New = PHOS) Reference Range Oct 2020 [id number] 04:25:00 Test Item Value Reference Range Interpretation Comments MAGNESIUM (test code = 1.8 mg/dL 1.6-2.6 N Pleas e note: New MAG) Reference Range Oct 2020 CBC W/AUTO [id number] 04:04:00 Test Item Value Reference Range Interpretation [...] = BA#) 0.02 x10 3/uL 0.0-0.20 N [id number] 03:32:00 Test Item Value Reference Range Interpretation Comments GLUBED (test code = GLUBED) 194 MG/DL 70-105 H BASIC METABOLIC [id number] 15:08:00 Test Item Value Reference Range Interpretation [...] note: New CA) Reference Range Oct 2020 [id number] 15:08:00 Test Item Value Reference Range Interpretation Comments PHOSPHOROUS (test code 5.0 mg/dL 2.4-5.1 N Pleas e note: New = PHOS) Reference Range Oct 2020 [id number] 15:08:00 Test Item Value Reference Range Interpretation Comments MAGNESIUM (test code = 1.5 mg/dL 1.6-2.6 L Pleas e note: New MAG) Reference Range Oct 2020 CBC W/AUTO [id number] 14:13:00 Test Item Value Reference Range Interpretation [...] 0.04 x10 3/uL 0.0-0.20 N BLOOD GAS [id number]/[id number] 08:59:00 Test Item Value Reference Range Interpretation [...] 22.3 MMOL/L 24-30 L code = TCO2A) PaO2/[id number] 08:59:00 Test Item Value Reference Range Interpretation Comments PaO2/FiO2 (test code = YIF4OES3) 672.10 >200 - XR CHEST 1 [id number] 07:31:00 [facility] 1955 Sex: FPatient Name: DESTINEY PRITCHARD Unit No: [id number] EXAMS: CPT CODE: [id number] XR CHEST 1 V 37618 Chest one view AP 07/12/2021 7:30 AM CLINICAL INDICATION: Pacemaker COMPARISON: 07/10/2021 LOCATION: W1 IMPRESSION: A tunneled right hemodialysis catheter is present. Cardiomediastinal contours are stable. The central pulmonary vasculature is not engorged. The lungs are well aerated. Electro nically Signed by AMANDA CRUZ M.D. on 07/12/2021 at 0731 Reported and signed by: HALIMA Thompson CC: Justice Marsh MD; Kandace Zarate MD Technologist: Venice Hanson Time: DAP (Gy m2): Air Kerma (mGy): Trscr Dt/Tm: 07/12/2021 (0731) by:[email or web address] Printed Date/Time: 07/12/2021 (0734) Name: DESTINEY PRITCHARD [facility] Phys: Kandace Pretty MMD [address] : 1955 Age: 66 Sex: F [place] [address] Loc: P.0218 1 Exam Date: 07/12/2021 Status: ADM IN PH: FAX: PAGE 1 Signed ReportCBC W/AUTO [id number] 06:47:00 Test Item Value Reference Range Interpretation Comments WHITE BLOOD CELL (test 11.6 x10 3/uL 4.8-10.8 H code = WBC) RED BLOOD CELL (test 2.14 x10 6/uL 4.20-5.40 L code = RBC) HEMOGLOBIN (test code 6.4 g/dL 12.0-16.0 LL Critic al Value = HGB) reported toFirs t Name:EWELINA Gibbs ast Name:DANA Al READ BACK AND VERIFIEDby P.LAB.CHEN, on 07/12/21, @ 064 7. HEMATOCRIT (test [...] 3/uL 0.0-0.20 N = BA#) BASIC METABOLIC [id number] 06:06:00 Test Item Value Reference Range Interpretation [...] CA) Reference Range Oct 2020 COMPREHENSIVE METABOLIC [id number] 06:06:00 Test Item Value Reference Range Interpretation [...] code = ALKP) Reference Range Oct 2020 [id number] 06:06:00 Test Item Value Reference Range Interpretation Comments PHOSPHOROUS (test code 4.7 mg/dL 2.4-5.1 Pleas e note: New = PHOS) Reference Range Oct 2020 [id number] 06:06:00 Test Item Value Reference Range Interpretation Comments MAGNESIUM (test code = 1.4 mg/dL 1.6-2.6 L Pleas e note: New MAG) Reference Range Oct 2020 T3 [id number] 01:48:00 Test Item Value Reference Range Interpretation Comments T3 FREE (test Test not performed 3.0-4.7 L Previous ly reported code = T3F) pg/mL result: 1.66 pg/mLEdited by: P.LABRHONDA on 07/12/21:014 T4 [id number] 01:48:00 Test Item Value Reference Range Interpretation Comments T4 FREE (test Test not performed 0.89-1.76 N Previous ly reported code = T4F) ng/dL result: 1.69 ng/dLEdited by: P.LABRHONDA on 07/12/21:0148 THYROID STIMULATING [id number] 01:48:00 Test Item Value Reference Range Interpretation Comments THYROID STIMULATING Test not 0.55-4.78 H Previous ly HORMONE (test code performed mIU/mL repor barbara result: = TSH) 5.68 mIU/mLEdit ed by: P.LABRHONDA o n 07/12/21:0148 [id number] 01:48:00 Test Item Value Reference Range Interpretation Comments CORTISOL (test Test not performed Previou sly reported code = CORTR) mcg/dL result: 6.05 mcg/dLEdited by : TANIKA on 07/12/21:0148 T3 [id number] 01:46:00 Test Item Value Reference Range Interpretation Comments T3 FREE (test code 1.66 pg/mL 3.0-4.7 L Please no te: New = T3F) Reference Range Oct 2020 T4 [id number] 01:46:00 Test Item Value Reference Range Interpretation Comments T4 FREE (test code 1.69 ng/dL 0.89-1.76 N Please no te: New = T4F) Reference Range Oct 2020 THYROID STIMULATING [id number] 01:46:00 Test Item Value Reference Range Interpretation Comments THYROID STIMULATING 5.68 mIU/mL 0.55-4.78 H Please n ote: New HORMONE (test code = Referen ce Range Oct TSH) 2020 [id number] 01:46:00 Test Item Value Reference Range Interpretation Comments CORTISOL (test code 6.05 mcg/dL ~~~~~~~~ ~~~~~~~~~~~~~~ = CORTR) ~~~~~~~~~~~~~~~ ~~~~~~R EFERENCE RANGE NOT ESTABLISHED WHE N NOT DRAWN CORTIS OL AM OR CORTISOL PM.~~~~~~~~~~~~ ~~~~~~~ ~~~~~~~~~~~~~~~ ~~~~~~~ ~~ Covid 19 InHouse [id number] 11:17:00 Test Item Value Reference Range Interpretation Comments Covid 19 Negative Negative A negative resu lt does not InHouse NTX preclude the SA RS-COV-2 (test code = viralinfection and should not be [id number]) used as the so le basis forpatient stephani gement decisions. Negative result s must becombined with clinical o bservations, patient history , andepidemiologi fabián information. Viral levels in clinicalsamples below the detec tion limit of the assay could jesus d tonegative results. This t est was performed using the WorkfaceTM COVID-19 PCRassay. This test was developed and i ts performancechar acteristics were determined by Justyna young [facility]. Thi s test has notbeen FDA maddison ared or approved. This test is au thorized by theFDA under Em ergency Use Authorization(E UA). The EUA willremain in e ffect unless it is terminated o r revoked by FDA . Testing robert eters have not been validated for screeningasympt omatic patients. This test was v alidated according to e FDA's guidancedocumen t "Policy for Diagnostics rosey ting in LaboratoriesCer tified to Perform High Complexity Testing under CLIA". Spec Comments: NSpec Comments: NFirst test? NoEmployed in Healthcare? NoSymptomatic as defined by CDC? NoHospitalized due to COVID? NoIn ICU due to COVID? NoResident in a congregate care setting? No? NoAge at collection: YPROTHROMBIN [id number] 08:23:00 Test Item Value Reference Range Interpretation Comments PROTHROMBIN TIME 14.2 SECONDS 10.3-12.9 H PATIENT (test code = PTP) INTERNATIONAL 1.24 INR UNIT 0.9-1.11 H The INR is us eful only NORMAL RATIO (test for monit oring code = INR) anticoagulant therapy.It may be unreliable in t he initial phase o f antigoagulation and in unstable patien ts. Indication for Anticoagulation Recommended INR 1. Prevention of v enous thomboembolism 2.0-3.0in high- risk patients; treat ment of venousthrombosi s and pulmonary embol ism aftera course o f heparin; preven tion of systemicembolis m in a variety of cond itions, including atria l fibrillation an d prothetic tissu e heart valves, 2. Pros thetic mechanical hear t valves; 2.5-3.5recurren t systemic emboli sm. CBC W/AUTO [id number] 08:16:00 Test Item Value Reference Range Interpretation [...] 0.04 x10 3/uL 0.0-0.20 N BASIC METABOLIC [id number] 05:05:00 Test Item Value Reference Range Interpretation [...] CA) Reference Range Oct 2020 COMPREHENSIVE METABOLIC [id number] 05:05:00 Test Item Value Reference Range Interpretation [...] code = ALKP) Reference Range Oct 2020 [id number] 05:05:00 Test Item Value Reference Range Interpretation Comments PHOSPHOROUS (test code 6.4 mg/dL 2.4-5.1 H Pleas e note: New = PHOS) Reference Range Oct 2020 [id number] 05:05:00 Test Item Value Reference Range Interpretation Comments MAGNESIUM (test code = 1.5 mg/dL 1.6-2.6 L Pleas e note: New MAG) Reference Range Oct 2020 [id number] 22:27:00 Test Item Value Reference Range Interpretation Comments GLUBED (test code = GLUBED) 146 MG/DL 70-105 H - DUP VEIN [id number] 16:20:00 [facility] : 1955 Sex: FPatient Name: DESTINEY PRITCHARD Unit No: [id number] EXAMS: CPT CODE: [id number] DUP VEIN CALVIN 61544 Exam:Bilateral upper extremity duplex venous ultrasound Location: W1 Clinical Indication:66-year-old with AV fistula/graft creation Comparison:None Findings:Duplex ultrasound of the upper extremity veins was performed, including grayscale, color-flow, and spectral waveform analysis. Patient'sleft arteriovenous fistula is occluded. On the right, [...] 2 and 3 mm within the forearm. The right radialand ulnar arteries measure 3 and 2 mm, respectively. The left radial and ulnar arteries measure 4 and 2 mm, respectively. Impression: 1. The patient's left upper extremity arteriovenous fistula is occluded. 2. Thrombus is identified within the bilateral cephalic veins at the level of the antecubital fossae. at 1620 Reported and signed by: Laine Murphy MD CC: Justice Marsh MD; Kandace Zarate MD; Hawa Kumari Technologist: Cheyenne Varela Probe: Trscr Dt/Tm: 07/10/2021 (1620) by:[email or web address] Printed Date/Time: 07/10/2021 (6693) Name: DESTINEY PRITCHARD [facility] Phys: Hawa Kumari AP [address] : 1955 Age: 66 Sex: [place] [address] Loc: P.0218 1 Exam Date: 07/10/2021 Status: ADM IN PH: FAX: PAGE 1 Signed Report- XR CHEST 1 [id number] 13:51:00[facility] : 1955 Sex: FPatient Name: DESTINEY PRITCHARD Unit No: [id number] EXAMS: CPT CODE: [id number] XR CHEST 1 V 00662 CHEST, SINGLE VIEW DICTATION LOCATION A1 HISTORY: Postoperative evaluation. A single view ofthe chest at 1:08 PM was compared to a prior exam from July 09, 2021. FINDINGS: Mild cardiomegaly and central pulmonary vascular congestion have slightly worsened along with slight worsening of biba silar atelectasis. Right dialysis catheter remains stable. No other acute findings are seen. IMPRESSION: Slight worsening of mild bibasilar lung atelectasis and mild cardiomegaly/central pulmonary vascular congestion. at 1351 Reported and signed by: Junior Hubbard Jr, MD CC: Justice Marsh MD; Benjamin Singh MD; Kandace Zarate MD Technologist: Jazmine Ennis Fluoro Time: DAP (Gy m2): Air Kerma (mGy): Trscr Dt/Tm: 07/10/2021 (1351) by:Cookie Printed Date/Time: 07/10/2021 (1354) Name: DESTINEY PRITCHARD [facility] Medical C enter Phys: SHIMA Benjamin Singh MD [address] : 1955 Age: 66 Sex: [place] [address] Loc: P.0218 1 Exam Date: 07/10/2021 Status: ADM IN PH: FAX: PAGE 1 [id number] 12:32:00 Test Item Value Reference Range Interpretation Comments GLUBED (test code = GLUBED) 125 MG/DL 70-105 H [id number] 10:11:00 Test Item Value Reference Range Interpretation Comments TROPONIN-I (test 415.3 pg/mL 27.36-66.23 HH Critical Va lue reported code = TROPI) toFirst Name:Lele MANNING Last Name:AFSHAN PONCE READ BACK AND Kaleb Burrows P.LAB.CK, on , @ 1011.Please not e: Units and Reference R uzma have changedFeb 3, 2 021 Spec Comments: from morning blood sampleBASIC METABOLIC [id number] 05:22:00 Test Item Value Reference Range Interpretation [...] note: New CA) Reference Range Oct 2020 [id number] 05:22:00 Test Item Value Reference Range Interpretation Comments PHOSPHOROUS (test code 4.4 mg/dL 2.4-5.1 Pleas e note: New = PHOS) Reference Range Oct 2020 PARATHYROID [id number] 04:44:00 Test Item Value Reference Range Interpretation Comments PARATHYROID HORMONE 213.5 pg/mL 18.4-80.1 H Please n ote: New (test code = PTH) Reference Range Oct 2020 CBC W/AUTO [id number] 04:22:00 Test Item Value Reference Range Interpretation [...] x10 3/uL 0.0-0.20 N AB HEPATITIS B [id number] 02:35:00 Test Item Value Reference Range Interpretation Comments AB HEPATITIS B SURFACE (test code = REACTIVE Nonreactive A HBSAB) AG HEPATITIS B [id number] 02:35:00 Test Item Value Reference Range Interpretation Comments AG HEPATITIS B SURFACE (test code Nonreactive Nonreactive = HBSAG) AB HEPATITIS B [id number] 02:35:00 Test Item Value Reference Range Interpretation Comments AB HEPATITIS B CORE (test code = Nonreactive Nonreactive HBCAB) AB HEPATITIS [id number] 02:35:00 Test Item Value Reference Range Interpretation Comments AB HEPATITIS C (test code = Nonreactive Nonreactive HCVAB) PROTHROMBIN [id number] 18:20:00 Test Item Value Reference Range Interpretation Comments PROTHROMBIN TIME 13.2 SECONDS 10.3-12.9 H PATIENT (test code = PTP) INTERNATIONAL 1.16 INR UNIT 0.9-1.11 H The INR is us eful only NORMAL RATIO (test for monit oring code = INR) anticoagulant therapy.It may be unreliable in t he initial phase o f antigoagulation and in unstable patien ts. Indication for Anticoagulation Recommended INR 1. Prevention of v enous thomboembolism 2.0-3.0in high- risk patients; treat ment of venousthrombosi s and pulmonary embol ism aftera course o f heparin; preven tion of systemicembolis m in a variety of cond itions, including atria l fibrillation an d prothetic tissu e heart valves, 2. Pros thetic mechanical hear t valves; 2.5-3.5recurren t systemic emboli sm. THROMBOPLASTIN TIME [id number] 18:20:00 Test Item Value Reference Range Interpretation Comments THROMBOPLASTIN TIME 27.3 SECONDS 23.8-34.8 N INTERPRE TATIVE PARTIAL (test code = : erapeutic PTT) range: Unfractionated heparin:55 - 80 seconds Argatroban:1.5 to 3 times the basel ine PTT CBC W/AUTO [id number] 18:14:00 Test Item Value Reference Range Interpretation [...] 0.05 x10 3/uL 0.0-0.20 N BLOOD GAS [id number] 17:58:00 Test Item Value Reference Range Interpretation [...] 23.5 MMOL/L 24-30 L code = TCO2A) PaO2/[id number] 17:58:00 Test Item Value Reference Range Interpretation Comments PaO2/FiO2 (test code = LRK1UGN4) 300.90 >200 COVID 19 Asymptomatic IH [id number] 17:32:00 Test Item Value Reference Range Interpretation [...] and symptomsconsist ent with COVID-19. BASIC METABOLIC [id number] 17:20:00 Test Item Value Reference Range Interpretation [...] note: New CA) Reference Range Oct 2020 [id number] 17:20:00 Test Item Value Reference Range Interpretation Comments PHOSPHOROUS (test code 7.9 mg/dL 2.4-5.1 H Pleas e note: New = PHOS) Reference Range Oct 2020 [id number] 17:20:00 Test Item Value Reference Range Interpretation Comments MAGNESIUM (test code = 1.7 mg/dL 1.6-2.6 N Pleas e note: New MAG) Reference Range Oct 2020 PROTHROMBIN [id number] 17:07:00 Test Item Value Reference Range Interpretation Comments PROTHROMBIN TIME 13.1 SECONDS 10.3-12.9 H PATIENT (test code = PTP) INTERNATIONAL 1.15 INR UNIT 0.9-1.11 H The INR is us eful only NORMAL RATIO (test for monit oring code = INR) anticoagulant therapy.It may be unreliable in t he initial phase o f antigoagulation and in unstable patien ts. Indication for Anticoagulation Recommended INR 1. Prevention of v enous thomboembolism 2.0-3.0in high- risk patients; treat ment of venousthrombosi s and pulmonary embol ism aftera course o f heparin; preven tion of systemicembolis m in a variety of cond itions, including atria l fibrillation an d prothetic tissu e heart valves, 2. Pros thetic mechanical hear t valves; 2.5-3.5recurren t systemic emboli sm. THROMBOPLASTIN TIME [id number] 17:07:00 Test Item Value Reference Range Interpretation Comments THROMBOPLASTIN TIME 30.2 SECONDS 23.8-34.8 N INTERPRE TATIVE PARTIAL (test code = DATA: erapeutic PTT) range: Unfractionated heparin:55 - 80 seconds Argatroban:1.5 to 3 times the basel ine PTT CBC W/AUTO [id number] 15:20:00 Test Item Value Reference Range Interpretation [...] 3/uL 0.0-0.20 N RECOLLECT- XR CHEST 1 [id number] 14:41:00 [facility] : 1955 Sex: FPatient Name: DESTINEY PRITCHARD Unit No: [id number] EXAMS: CPT CODE: [id number] XR CHEST 1 V 16336 Single View Chest. Location: W1 Clinical Indication: 66-year-old with weakness Comparison: None Impression: Lungs are grossly clear. There is mild enlargement of heart. A right IJ tunneled hemodialysis catheter is present. No acute osseous abnormality. at 1441 Reported and signed by: Laine Murphy MD CC: Justice Miranda; Jose G Cain MD Technologist: Adolfo Puente Fluoro Time: DAP (Gy m2): Air Kerma (mGy): TrscrDt/Tm: 07/09/2021 (1441) by:[email or web address] Printed Date/Time: 07/09/2021 (1444) Name: DESTINEY PRITCHARD [facility] Phys: Jose G Fragoso MD [address] : 1955 Age: 66 Sex: F [place], [place] [address] Loc: EULOGIO Verdin Exam Date: 07/09/2021 Status: ADM IN PH: FAX: PAGE 1 Signed ReportBASIC METABOLIC [id number] 14:23:00 Test Item Value Reference Range Interpretation [...] note: New CA) Reference Range Oct 2020 [id number] 14:23:00 Test Item Value Reference Range Interpretation Comments PHOSPHOROUS (test code 8.5 mg/dL 2.4-5.1 H Pleas e note: New = PHOS) Reference Range Oct 2020 [id number] 14:23:00 Test Item Value Reference Range Interpretation Comments MAGNESIUM (test code = 1.7 mg/dL 1.6-2.6 N Pleas e note: New MAG) Reference Range Oct 2020 THYROID STIMULATING [id number] 14:23:00 Test Item Value Reference Range Interpretation Comments THYROID STIMULATING 31.47 mIU/mL 0.55-4.78 H Please n ote: New HORMONE (test code = Referen ce Range Oct TSH) 2020 [id number] 14:17:00 Test Item Value Reference Range Interpretation Comments TROPONIN-I (test 285.7 pg/mL 27.36-66.23 HH Critical Va lue reported code = TROPI) toFirst Name:Vinod BRITONITO Last Name:TANMAY ARCE READ BACK AND VENKATA LAZAR, on , @ 9492.Please not e: Units and Reference R uzma have changedFeb 3, 2 021 T4, [id number] 06:45:00 Test Item Value Reference Range Interpretation Comments T4, free (test code 1.6 ng/dL 0.8-1.8 = 3024-7) KENDRICK (test code = FASTING:NO FASTING: NO KENDRICK) RAC (test code = Performing Organization RAC) Information: Site ID: RGA [facility] Address: [address] [place] [address] Director: [facility] CampusThyroid stimulating [id number] 06:45:00 Test Item Value Reference Range Interpretation Comments TSH (test See_Comment [Automated mes david] code = The system [facility] h 3016-3) generated this result transmit barbara reference range : 0.40 - 4.50 mIU /L. The reference r uzma was not used to interpret this result as normal/abnormal . KENDRICK (test FASTING:NO FASTING: code = KENDRICK) NO RAC (test Performing code = RAC) Organization Information: Site ID: RGA [facility]: [facility] Address: [address] [place] [address] Director: [facility] [id number] 06:45:00 Test Item Value Reference Range Interpretation Comments T3 (test code = 102 ng/dL 76-181 3053-6) KENDRICK (test code = FASTING:NO FASTING: NO KENDRICK) RAC (test code = Performing Organization RAC) Information: Site ID: RGA Name: [facility] Address: [address] [place] [address] Director: Laine Matthew [place] [address], [id number] 12:00:00 Test Item Value Reference Range Interpretation Comments T4, FREE (test code 1.4 ng/dL 0.8-1.8 = 3024-7) RAC (test code = Performing Organization RAC) Information: ? ?Site ID: RGA ? ?Name: [facility] ? ?Address: [address] [place] [address] ? ?Director: LAINE MATTHEW MD [place] [id number] 12:00:00 Test Item Value Reference Range Interpretation Comments TSH (test code = See_Comment H REPORT 3016-3) COMMENT:FASTING :Y ES [Automated message] The system which generated this result transmitted reference range : 0.40 - 4.50 mIU/L. The reference range was not used to interpret this result as normal/abnormal . RAC (test code = Performing RAC) Organization Information: ? ?Site ID: RGA ? ?Name: [facility] ? ?Address: [address] [place] [address] ? ?Director: LAINE MATTHEW MD Lab Interpretation Abnormal (test code = 85204-3) [facility] [id number] 16:23:20 Test Item Value Reference Range Interpretation Comments POC glucose (test code 129 mg/dL 65-99 H Opera tor Name: = 48926-5) Adams MarAmmno evice ID: [id number] able: [facility] Notified atmospheric chemist Interpretation Abnormal (test code = 61177-9) [facility] 12 [id number] 22:11:37 Test Item Value Reference Range Interpretation Comments Ventricular rate (test code = 253) Atrial rate (test code = 255) MS interval (test code = 266) QRSD interval [...] , age undetermined-Abnormal ECG-No previous ECGs available- [facility], (w Contrast, Strain and 3D if needed)2021-02-22 22:40:00 Echocardiography Report [address] [place] [address] Pat.Name: DUNG PRITCHARD Pat.ID: [id number] .Date: 02/22/2021 Refer.MD: THI VARGAS MD Exam Time: 4:27:00 PM Study Type:Routine Echo Height: 60in Weight: 200.58lb BSA: 1.87 m2 Age: 8 1955,65Y Sex: FEMALE BP: 76/42 HR: 52 bpm Sonogrphr: nancy Woodruff. Stat.:Inpatient Study Status:Final Echo Event ID:[id number] Order ID: [id number] Reason for Study:Valvular disease-initial evalHistory / Clinical:Valvular Heart Disease; Aortic StenosisProcedures: 2D Echo, 2D Echo, Colorflow DopplerRace: C SUMMARY: LV EF is hyperdynamic. Estimated EF is >70%.RV systolic function is normal.Moderate calcific aortic/mitral valve stenosis.Valvular high velocity and pressure gradient is secondary to high flowstate and calcific valvular stenosis. FINDINGS: LV: LV size is normal. There is [...] seen.AV: Severe thickening and calcification of AV l eaflets. Moderate aortic valve stenosis. Estimated mean aortic [...] noted. A trace of tricuspid regurgitation Shaw: Un able to assess diastolic function due to presence of mitral stenosis.Other: Insufficient TR jet to estimate PA systolic pressure. MEASUREMENTS: 2DParasternal Long [place] Ao An 1.5 cm LVPWd 1.3 cm [...] LngAx 6.1 cm RA Area 20 cm2 (8.3- 19.5)*LVOT For Flow LVOT 1.8 cm LVOT Area 2.5 cm2 DOPPLERAV For Flow/ARLENE AV pkVel 357 cm/s (100-170)* AV TVI 93 cm AVmnVel 253 cm/s AVpkAcRt 4373 cm/s2 AV pkPG 51 mmHg AV DeRt 969 cm/s2 AV Mean G 31 mmHg AV Area 1 cm2 (3-5)* AV ET 368 msec AV AC 181 msec (83-118)* AV AC/ET 0.49 Aortic Valve AV DI 0.4 LVOT For Flow LVOT TVI 37 cm LVOT CI 2.9 l/m/m2 LVOT SV 94 ml LVOTpkPG 11 mmHg LVOTpkVel 168 cm/s LVOTmnPG 5.5 mmHgLVOT CO 5.4 l/min HR 58 bpm LVOT SVi 50 ml/m2 MV Forward Flow MV pkVel 214 cm/s MV TVI 100 cm MV pkPG 18 mmHg MV Area P1/2t 1.2 cm2 (4-6)* MV Mean G 9.3 mmHg MV Dec T 609 msec Signed 02/22/2021 05:40 PMBrittany Coronado MDInterface, Radiology Results In - 02/22/2021 5:41 PM CDT Echocardiography Report [address] [place] [address] Pat.Name: DESTINEY PRITCHARD Pat.ID: [id number] .Date: 02/22/2021 Refer.MD: THI VARGAS MD Exam Time: 4:27:00 PM Study Type:Routine Echo Height: 60in Weight: 200.58lb BSA: 1.87 m2 Age: [address]1954,65Y Sex: FEMALE BP: 76/42 HR: 52 bpm Sonogrphr: nancy Woodruff Pat. Stat.:Inpatient Study Status:Final Echo Event ID:[id number] Order ID: [id number] Reason for Study:Valvular disease-initial evalHistory / Clinical:Valvular Heart Disease; Aortic StenosisProcedures: 2D Echo, 2D Echo, Colorflow DopplerRace: C SUMMARY: LV EF is hyperdynamic. Estimated EF is >70%.RV systolic function is normal.Moderate calcific aortic/mitral valve stenosis.Valvular high velocity and pressure gradient is secondary to high flowstate and calcific valvular stenosis. FINDINGS: LV: LV size is normal. There is [...] is a normal variant commonly seen.AV: Severe thi ckening and calcification of AV leaflets. Moderate aortic valve stenosis. Estimated mean aortic valve gradient 31 mmHg with a valve area of 1 cm2 (DVI 0.4). Aortic valve high velocity and pressure gradient is secondary to high flow state and valvular stenosis.MV: Moderate to severe thickening and calc ification of mitral leaflets. Thickened and/or calcified mitral [...] TR jet to estimate PA systolic pressure. EUGENE SUREMENTS: 2DParasternal Long [place] Ao An 1.5 cm LVPWd 1.3 cm AoRtd 2.8 cm Index 1.5 cm/m2 LA Ds [...] AC 181 msec (83-118)* AV AC/ET 0.49 AorticValve AV DI 0.4 LVOT For Flow LVOT TVI 37 cm LVOT CI 2.9 l/m/m2 LVOT SV 94 ml LVOTpkPG 11 mmHg LVOTpkVel 168 cm/s LVOTmnPG 5.5 mmHg LVOT CO 5.4 l/min HR 58 bpm LVOT SVi 50 ml/m2 MV Forward Flow MV pkVel 214 cm/s MV TVI 100 cm MV pkPG 18 mmHg MV Area P1/2t 1.2 cm2 (4-6)* MV Mean G 9.3 mmHg MV Dec T 609 msec Signed 02/22/2021 05:40 PMAva [facility]New [facility] NEED [facility],DX OR RX 2021-02-22 19:33:29Cirilo Hernandez RN 02/22/2021 2:35 PMMidline Insertion Date/Time: 02/22/2021 2:33 PMPerformed by: Santino Ulloa, RNAuthorized by: Juventino Girard MD Consent: Consent obtained: Verbal Consent given by:Patient Risks discussed: Arterial puncture, incorrect placement, nerve damage, bleeding, infection, deep vein thrombus and superficial thrombus Alternatives discussed: Delayed treatmentUniversal protocol: Procedure explained and questions answered to patient or proxy's satisfaction: yes Relevant documents present and verified: yes Test results available and properly labeled: yes Imaging studies available: yes Required blood products, implants, devices, and special equipment available: yes Site/side marked: yes Immediately prior to procedure, a time out was called: yes Patient identity confirmed: Verbally with patient, arm band, provided demographic data and hospital-assigned identification numberPre-procedure details: Hand hygiene: Hand hygiene performed prior to insertion Sterile barrier technique: All elements of maximal sterile technique followed Skin preparation: ChloraPrep Skin preparationagent: Dried prior to procedure Anesthesia (see MAR for exact dosages): Anesthesia method: Local infiltration Local anesthetic: Lidocaine 1% w/o epi Route administered: SubcutaneousMidLine Placement Details (Will create an LDA): Patient position: Flat Vessel Size (mm): 6 Indication: Poor venous accessLocation: Right basilic Device Type: Non-valved Catheter Lumen(s): Single lumen Catheter size: 4 Fr Catheter to vein ratio: 25%MidLine Characteristics: Catheter Brand: Angiodynamic Bioflo External Catheter Length (cm): 0 Internal Catheter Length (cm): 9 Total Catheter Length (cm): 9 Catheter Lot Number: [id number] Catheter Expiration Date: 1Procedure details: Landmarks identified: yes Ultrasoundguidance: yes Sterile ultrasound techniques: Sterile gel and sterile [...] applied Blood Loss Amount: Less than 20 mLPost-procedure details: Post-procedure: Dressing applied Patient tolerance of procedure: Tolerated well, no immediate complicationsMethodi HospitalXR Chest 1 Vw [id number] 01:03:12EXAMINATION: XR CHEST 1 VW PORTABLE CLINICAL HISTORY: 65 years Female SOB COMPARISON: December 02 IMPRESSION: Cardiomediastinal silhouette is unchanged. Atelectasis in the lung bases Age related changes in the osseous structures. Right central venous catheter the tip of the catheter terminating the superior vena cava. No pneumothorax . Interface, Radiology Results Incoming - 02/21/2021 8:06 PM CDT EXAMINATION: XR CHEST 1 VW PORTABLECLINICALHISTORY: 65 years Female SOBCOMPARISON: December 02IMPRESSION:Cardiomediastinal silhouette is unchanged. Atelectasis in the lung bases Age related changes in the osseous structures.Right central venous catheter the tip of the catheter terminating the superior vena cava. No pneumothorax.[facility] ED Preliminary Interpretation - Not an [id number] 22:49:06 Test Item Value Reference Range Interpretation Comments KENDRICK (test code = KENDRICK) See Carr DO 02/25/2021 9:26 [facility] [place] Preliminary Interpretation - Not an OrderPerformed by: See Carr DOAuthorized by: See Carr DO ECG reviewed by ED Physician in the absence of a plant and maintenance technician: yes Interpretation: Interpretation: abnormal Rate: ECG rate: 59 ECG rate assessment: bradycardic Rhythm: Rhythm: sinus bradycardia and A-V block QRS: QRS axis: Normal QRS intervals: NormalConduction: Conduction: abnormal Abnormal conduction: 1st degree and non-specific intraventricular conduction delay ST segments: ST segments: NormalT waves: T waves: normal Lab Interpretation Abnormal (test code = 68879-7) [facility]- XR FLUOROSCOPY 0-60 [id number] 15:51:00 [facility] : 1955 Sex: FPatient Name: DESTINEY PRITCHARD Unit No: [id number] EXAMS: CPT CODE: [id number] XR FLUOROSCOPY 0-60 MIN 19184 Exam:Fluoroscopy for fistulogram Location: W1 Clinical Indication:65-year-old undergoing dialysis access repair by vascular surgeon Comparison:None Impression:Total fluoroscopy time was 8 minutes 11 seconds. Cumulative dose was 29.257 mGy. Two fluoroscopic series of an upper extremity were submitted, showing fistulogram and angioplasty. Please see operative report for further detail. at 1551 Reported and signed by: Laine Murphy MD CC: Justice Marsh MD Technologist: ALVERTO STOUT RT(R) Fluoro Time: DAP (Gy m2): Air Kerma (mGy): Trscr Dt/Tm: 02/03/2021 (1556) by:[email or web address] Printed Date/Time: 05/19/2022 (0927) Name: DESTINEY PRITCHARD [facility] Phys: CHAKR.[facility] - [facility] [address] : 1955 Age: 65 Sex: [place] [phone] Loc: P.0602 1 Exam Date: Status: DIS IN PH: FAX: PAGE 1 Signed ReportBASIC METABOLIC PANEL 2021-02-01 04:58:00 Test Item Value Reference Range Interpretation [...] Va lue code = CREAT) reported Aakash skaggs Name:KOLTON Mancuso Name:ANGELICA LAMBERT READ BACK AND VERIFIEDby ALEXANDRA MADRID, on 02/01/21, @ 0762.Please not e: New Reference Range Oct 2020 CALCIUM (test code = 8.8 mg/dL 8.7-10.4 N Please note: New CA) Reference Range Oct 2020 CBC W/AUTO [id number] 04:35:00 Test Item Value Reference Range Interpretation [...] x10 3/uL 0.0-0.20 N AB HEPATITIS B [id number] 16:51:00 Test Item Value Reference Range Interpretation Comments AB HEPATITIS B SURFACE (test code = REACTIVE Nonreactive A HBSAB) AG HEPATITIS B [id number] 16:51:00 Test Item Value Reference Range Interpretation Comments AG HEPATITIS B SURFACE (test code Nonreactive Nonreactive = HBSAG) AB HEPATITIS B [id number] 16:51:00 Test Item Value Reference Range Interpretation Comments AB HEPATITIS B CORE (test code = Nonreactive Nonreactive HBCAB) AB HEPATITIS [id number] 16:51:00 Test Item Value Reference Range Interpretation Comments AB HEPATITIS C (test code = Nonreactive Nonreactive HCVAB) [id number] 13:26:00 Test Item Value Reference Range Interpretation Comments GLUBED (test code = GLUBED) 125 MG/DL 70-105 H BASIC METABOLIC [id number] 11:40:00 Test Item Value Reference Range Interpretation [...] lue code = CREAT) reported toFir st Name:JOSE RAMON Last Name:CAYLA CANCHOLA READ BACK AND VERIFI Da P.LAB.CAR1, on 01/31/21, @ 1136.Please not e: New Reference Range Oct 2020 CALCIUM (test code = 8.2 mg/dL 8.7-10.4 L Please note: New CA) Reference Range Oct 2020 MA Digital Mammo Screen Calvin w mary [id number] 12:03:00BILATERAL DIGITAL SCREENING MAMMOGRAM 3D/2D WITH CAD: [...] mammogram is recommended.(01/01/2022) This exam was [facility] [id number] [facility] David shipley/juan:12/31/2020 14:55:47 Catalyst Operator(s): Candida Da Silva [facility] sent: BI-RADS 1/2 Mammogram BI-RADS: 2 Benign--Read by: Davdi Feng MDDictated Date/time: 12/31/20 14:55Electronically Signed by: David Feng MD 12/31/2113:55FINAL REPORTUT PhysiciansUS Pelvis with Pelvis Transvaginal [id number] 11:23:00PROCEDURE INFORMATION:Exam: US Pelvis Complete, Transabdominal and [...] not seen due to overlying bowel gas.Intraperitoneal space: No intraperitoneal fluid.Urinary bladder: The bladder is under distended.IMPRESSION: Limited exam1. Uterus is suboptimally visualized.2. The ovaries are not visualized.An MRI or CT with IV contrast can better evaluate for vulvar abscess orBartholin cyst.Bimal Esquivel MD On 12/31/2020 13:15:38; [id number]--Kpxg by: Bimal Esquivel MDDictated Date/time: 12/31/20 13:17Electronically Signed by: Bimal Esquivel MD 12/31/2112:17FINAL REPORTUT [id number] 18:03:00 Test Item Value Reference Range Interpretation Comments GLUBED (test code = GLUBED) 149 MG/DL 70-105 H Novel Coronavirus 2019 [id number] 14:10:00 Test Item Value Reference Range Interpretation Comments Novel Coronavirus Not Detected Not Detected Testing wa s performed 2019 Inhouse (test using the Aptima code = COVNONPUI) SARS-CoV-2 assay.This nucleic acid amplification t est was developed and itsperformance characteristics determined by Erika bruce. Nucleic acid amplification t ests include RT-PCR and TMA. This test has n ot been FDA cleared ora pproved. This test has b een authorized by [employer]reen BOND under anEmergency Use Authorization ( EUA). This test is onlyauthorized for the duration of shiv e the declaration thatcircumstanc es exist justifying the authorization o f theemergency us e of in vitro diagnosti c tests for detection qaQTLY-MgY-3 vi chase and/or diagnosi s of COVID-19 [...] t in this assay.Perf ormed At: [facility] [id number] [place], [place] [id number] Kyle L MD Ph:[phone] COMPREHENSIVE METABOLIC [id number] 17:12:00 Test Item Value Reference Range Interpretation [...] = ALKP) Reference Range Oct 2020 PROTHROMBIN [id number] 16:34:00 Test Item Value Reference Range Interpretation Comments PROTHROMBIN TIME 12.4 SECONDS 10.3-12.9 N PATIENT (test code = PTP) INTERNATIONAL 1.09 INR UNIT 0.9-1.11 N The INR is us eful only NORMAL RATIO (test for monit oring code = INR) anticoagulant therapy.It may be unreliable in t he initial phase o f antigoagulation and in unstable patien ts. Indication for Anticoagulation Recommended INR 1. Prevention of v enous thomboembolism 2.0-3.0in high- risk patients; treat ment of venousthrombosi s and pulmonary embol ism aftera course o f heparin; preven tion of systemicembolis m in a variety of cond itions, including atria l fibrillation an d prothetic tissu e heart valves, 2. Pros thetic mechanical hear t valves; 2.5-3.5recurren t systemic emboli sm. THROMBOPLASTIN TIME [id number] 16:34:00 Test Item Value Reference Range Interpretation Comments THROMBOPLASTIN TIME 27.1 SECONDS 23.8-34.8 N INTERPRE TATIVE PARTIAL (test code = DATA: erapeutic PTT) range: Unfractionated heparin:55 - 80 seconds Argatroban:1.5 to 3 times the basel ine PTT CBC W/AUTO [id number] 16:16:00 Test Item Value Reference Range Interpretation [...] HEMOGLOBIN A1c (test code = 4548-4) 6.9 FL PhysiciansGlucose (Point of Care In Office)2020-10-29 09:54:00 Test Item Value Reference Range Interpretation Comments Glucose POC Lifescan (test code = 130 Glucose POC Lifescan) [facility][QL] T4, [id number] 00:00:00 Test Item Value Reference Range Interpretation Comments T4, FREE (test 0.6 ng/dl 0.8-1.8 SPECIMEN RECE IVED DATE AND code = T4, FREE) TIME: [id number] [facility][QL] TSH, 3RD [id number] 00:00:00 Test Item Value Reference Range Interpretation Comments TSH; Above High 95.00 {MIU/L} 0.40-4.50 SPECIMEN RE CEIVED Threshold (test DATE AND SHIV E: code = 80017-3) [id number] FL PhysiciansXRAY Chest 2 views [id number] 14:38:00EXAM: XR CHEST 2 viewsDATE: 07/29/2020 14:37 CSTINDICATION: - D35.1 Benign neoplasm of parathyroid glandCOMPARISON: None.TECHNIQUE: AP and lateral view of the [...] abdominal quadrant. Lower thoracic spinal hardware and degenerativechanges inthe thoracic spine.CONCLUSION:No significant change compared to the most recent radiograph, as describedabove. --Read by: Mali Rivas MDDictated Date/time: 07/29/20 14:57Electronically Signed by: Mali Rivas MD 07/29/2015:02FINAL REPORTUT PhysiciansGlucose (Point of Care In Office)2020-07-23 09:05:00 Test Item Value Reference Range Interpretation Comments Glucose POC Lifescan (test code = 158 A Glucose POC Lifescan) FL PhysiciansMI Parathyroid SPECT [id number] 10:55:00PROCEDURE INFORMATION:Exam: NM Parathyroid, Planar And SPECTExam [...] were also obtained after 3 hours.COMPARISON:PARATHYROID SPECT MI 11/21/2014 3:33 PMFINDINGS:Organs: Thyroidectomy. 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.Bimal Esquivel MD On 06/18/2020 17:18:00; [id number]--Dpyi by: Bimal Esquivel MDDictated Date/time: 06/18/20 17:18Electronically Signed by: Bimal Esquivel MD 06/18/2017:18FINAL REPORTUT PhysiciansBASIC METABOLIC PANEL 2020-06-06 09:43:00 Test Item Value Reference Range Interpretation [...] 8.6 mg/dL 8.8-10.2 L CA) CBC W/AUTO [id number] 09:21:00 Test Item Value Reference Range Interpretation [...] x10 3/uL 0.0-0.20 N AB HEPATITIS B [id number] 10:16:00 Test Item Value Reference Range Interpretation Comments AB HEPATITIS B SURFACE (test code = REACTIVE NONREACTIVE A HBSAB) AG HEPATITIS B [id number] 10:14:00 Test Item Value Reference Range Interpretation Comments AG HEPATITIS B SURFACE (test NON REACTIVE NONREACTIVE code = HBSAG) AB HEPATITIS B [id number] 10:14:00 Test Item Value Reference Range Interpretation Comments AB HEPATITIS B CORE (test code = NONREACTIVE NONREACTIVE HBCAB) AB HEPATITIS [id number] 10:14:00 Test Item Value Reference Range Interpretation Comments AB HEPATITIS C (test code = NONREACTIVE NONREACTIVE HCVAB) AG HEPATITIS B [id number] 09:14:00 Test Item Value Reference Range Interpretation Comments AG HEPATITIS B SURFACE (test NON REACTIVE NONREACTIVE code = HBSAG) AB HEPATITIS B [id number] 09:14:00 Test Item Value Reference Range Interpretation Comments AB HEPATITIS B CORE (test code = HBCAB) NONREACTIVE AB HEPATITIS [id number] 09:14:00 Test Item Value Reference Range Interpretation Comments AB HEPATITIS C (test code = HCVAB) NONREACTIVE BASIC METABOLIC [id number] 08:38:00 Test Item Value Reference Range Interpretation [...] rate . CREATININE (test 13.0 mg/dL 0.8-1.5 HH Critical Va lue code = CREAT) reported Aakash skaggs Name:LA Last Name:PAULETTE LTS READ BACK AND VERIFIEDby ALEXANDRA WHITFIELD, on 06/05/20, @ 0837. CALCIUM (test code = 9.1 mg/dL 8.8-10.2 N CA) [id number] 08:38:00 Test Item Value Reference Range Interpretation Comments PHOSPHOROUS (test code 12.9 mg/dL 2.7-4.5 HH Criti fabián Value = PHOS) reported Noam higgins Name:LA Last Name:PAULETTE LTS READ BACK AND VERIFIEDby ALEXANDRA WHITFIELD, on 06/05/20, @ 0838. CBC W/AUTO [id number] 08:18:00 Test Item Value Reference Range Interpretation [...] = BA#) 0.04 x10 3/uL 0.0-0.20 N [id number] 07:35:00 Test Item Value Reference Range Interpretation Comments GLUBED (test code = GLUBED) 120 MG/DL 70-105 H BASIC METABOLIC [id number] 20:29:00 Test Item Value Reference Range Interpretation [...] rate . CREATININE (test 12.2 mg/dL 0.8-1.5 Critical Vt lue code = CREAT) reported toFir st Name:ZAYYENY Pascual higgins Name:CHUY RNRESULTS READ BACK AND VERIFIEDby P.LAB.RS, on , @ 2028. CALCIUM (test code = 8.9 mg/dL 8.8-10.2 N CA) [id number] 16:34:00 Test Item Value Reference Range Interpretation Comments POTASSIUM (test code = K) 5.2 MMOL/L 3.5-5.1 H COVID 19 Asymptomatic IH [id number] 16:01:00 Test Item Value Reference Range Interpretation Comments COVID 19 Asymptomatic IH AG (test NEGATIVE NEGATIVE code = COVNONPUIAG) [id number] 15:58:00 Test Item Value Reference Range Interpretation Comments GLUBED (test code = GLUBED) 100 MG/DL 70-105 N [QL] T4, [id number] 11:15:00 Test Item Value Reference Range Interpretation Comments T4, FREE (test 1.3 ng/dl 0.8-1.8 N SPECIMEN RECE IVED DATE AND code = T4, FREE) TIME: [id number] [facility][QL] TSH, 3RD [id number] 11:15:00 Test Item Value Reference Range Interpretation Comments TSH; Normal (test 3.44 {MIU/L} 0.40-4.50 N SPECIMEN R ECEIVED DATE code = 79586-5) AND TIME: [facility][O] Hemoglobin A1c (in office)2020-03-05 10:57:00 Test Item Value Reference Range Interpretation Comments HEMOGLOBIN A1c (test code = 4548-4) 5.5 FL PhysiciansGlucose (Point of Care In Office)2020-03-05 10:40:00 Test Item Value Reference Range Interpretation Comments Glucose POC Lifescan (test code = 106 A Glucose POC Lifescan) [facility]] TSH, 3RD [id number] 11:28:01 Test Item Value Reference Range Interpretation Comments TSH; Above High Threshold 12.500 {uIU/ml} 0.360-3.740 (test code = 83488-9) [facility]] TSH, 3RD [id number] 18:28:01 Test Item Value Reference Range Interpretation Comments TSH; Above High Threshold 7.540 {uIU/ml} 0.360-3.740 (test code = 19317-7) FL PhysiciansCOMPREHENSIVE METABOLIC [id number] 08:10:00 Test Item Value Reference Range Interpretation [...] 32-104 N (test code = ALKP) PROTHROMBIN [id number] 08:01:00 Test Item Value Reference Range Interpretation Comments PROTHROMBIN TIME 13.9 SECONDS 10.3-12.9 H PATIENT (test code = PTP) INTERNATIONAL 1.19 INR UNIT 0.9-1.11 H The INR is us eful only NORMAL RATIO (test for monit oring code = INR) anticoagulant therapy.It may be unreliable in t he initial phase o f antigoagulation and in unstable patien ts. Indication for Anticoagulation Recommended INR 1. Prevention of v enous thomboembolism 2.0-3.0in high- risk patients; treat ment of venousthrombosi s and pulmonary embol ism aftera course o f heparin; preven tion of systemicembolis m in a variety of cond itions, including atria l fibrillation an d prothetic tissu e heart valves, 2. Pros thetic mechanical hear t valves; 2.5-3.5recurren t systemic emboli sm. THROMBOPLASTIN TIME [id number] 08:01:00 Test Item Value Reference Range Interpretation Comments THROMBOPLASTIN TIME 32.1 SECONDS 26.0-35.9 N INTERPRE TATIVE PARTIAL (test code = DATA: erapeutic PTT) range: Unfractionated heparin:47 - 71 seconds Argatroban:1.5 to 3 times the basel ine PTT COMPREHENSIVE METABOLIC [id number] 07:55:00 Test Item Value Reference Range Interpretation [...] (test code = ALKP) HGBA1C - GLYCOSYLATED [id number] 07:52:00 Test Item Value Reference Range Interpretation [...] be low 7% meet the goalof the [employer]. No rmal: <5.7Pre-Diabete s: 5.7 6.4Diabetic: >6.5Therapeutic goal for glycemic contro l: <7.0 CBC W/AUTO [id number] 07:45:00 Test Item Value Reference Range Interpretation [...]
[2022-06-18 14:09] LABS: Absolute Lymphocytes (CBC) 0.8 K/uL (0.7-4.9); Hematocrit 38.4 % (36.0-45.0); Lymphocytes % 12.2 % (15.3-44.8); MCV 96.1 fL (80-100); MPV 8.5 fL (7.6-11.3); RBC Red Blood Cell Count 3.99 M/uL (3.86-4.86)
--- NOTE | 2022-06-18 14:18 | RAD REPORT ---
EXAM DESCRIPTION: RAD - Chest Single View - 06/18/2022 1:54 pm CLINICAL HISTORY: weakness COMPARISON: Portable chest 12/11/2019, CT cervical spine 04/26/2020 TECHNIQUE: AP portable chest image was obtained 06/18/2022 1:54 pm . FINDINGS: No peripheral mass or consolidation identifiable. Patient has a prominent, chronic interst itial lung pattern. This could easily mask a mild, diffuse interstitial edema or infiltrate. Cardiomegaly is present compared to the prior study. Loop recorder overlies the lower left chest. Va sculature is increased slightly over comparison. The April 2020 CT study showed upper mediastinal mass between the trachea and spine. It is unknown t his mass is been addressed. Portable plain film was not adequate for surveillance. There is eggshell calcification along the left lateral margin of the AP window. There was a partially calcified mass or lymph node on the prior study. This may have enlarged slightly from 2020. Differential, if any, is m inimal. No measurable pleural effusion and no pneumothorax. No acute bony abnormality seen. No acute aortic findings suspected. IMPRESSION: Diffusely prominent interstitial pattern along with cardiomegaly and mild vascular engor gement. And minimal failure or volume overload could be present. A prominent interstitial pattern is increased over baseline and mild diffuse interstitial edema or in filtrate unrelated to failure could be present. Prior imaging showed evidence for mediastinal masses. These are probably not grossly different but ca nnot be adequately surveilled using plain film. If not already addressed, the patient could undergo o utpatient CT chest imaging for monitoring.
[2022-06-18 14:36] LABS: Albumin 3.5 g/dL (3.4-5.0); Bilirubin Direct 0.2 mg/dL (0-0.2); Bilirubin Total 0.4 mg/dL (0.2-1.0); Protein, Total 7.2 g/dL (6.4-8.2)
[2022-06-18 14:39] LABS: Troponin High Sensitivity 602.1 pg/mL (<58.9)
--- NOTE | 2022-06-18 15:03 | ER ---
Nurse's Notes [facility] Name: Danielle aYn Age: 67 yrs Sex: Female : 1955 Arrival Date: 06/18/2022 Time: 13:37 Bed 7 Private MD: Diagnosis: volume overload ;Subsequent non-ST elevation (NSTEMI) myocardial infarction Presentation: 06/18 13:39 Chief complaint: Patient states: Very weak, and missed dialysis yesterday. EMS states: ll1 BP 90's/50's, vitals otherwise normal. Patient states low BP is normal. Coronavirus screen: Vaccine status: Patient reports receiving the 2nd dose of the covid vaccine. Client denies travel out of the [place] in the last 14 days. At this time, the client does not indicate any symptoms associated with coronavirus-19. Ebola Screen: Patient denies travel to an Ebola-affected area in the 21 days before illness onset. Initial Sepsis Screen: Does the patient meet any 2 criteria? No. Patient's initial sepsis screen is negative. Does the patient have a suspected source of infection? No. Patient's initial sepsis screen is negative. Risk Assessment: Do you want to hurt yourself or someone else? Patient reports no desire to harm self or others. Onset of symptoms was June 15, 2022. 13:39 Method Of Arrival: EMS ll1 13:39 Acuity: [place] 3 ll1 Triage Assessment: 13:41 General: Appears uncomfortable, ill, Behavior is calm, cooperative, appropriate for ll1 age. Pain: Denies pain. Neuro: Reports weakness. Historical: - Allergies: 13:38 CEPHALOSPORINS; ll1 - PMHx: 13:38 Diabetes - NIDDM; factor 5 leiden; Renal Disease; Hypertension; Dialysis; ll1 Hypothyroidism; PERIPHERAL NEUROPATHY; Gout; - PSHx: 13:38 pacemaker; RUE dialysis graft; ll1 - Immunization history:: Client reports receiving the 2nd dose of the Covid vaccine. - Social history:: Smoking status: Patient denies any tobacco usage or history of. Screenin:27 Abuse screen: Denies threats or abuse. Denies injuries from another. Nutritional tw5 screening: No deficits noted. Tuberculosis screening: No symptoms or risk factors identified. Fall Risk No fall in past 12 months (0 pts). Secondary diagnosis (15 points) CVA, IV access (20 points). Ambulatory Aid- None/Bed Rest/Nurse Assist (0 pts). Gait- Weak (10 pts.). Mental Status- Oriented to own ability (0 pts). Total Sanchez Fall Scale indicates High Risk Score (45 or more points). Fall prevention measures have been instituted. Side Rails Up X 2 Frequent Obs/Assessments Occuring As available patient and family educated on Fall Prevention Program and Strategies. Assessment: 13:45 General: Appears in no apparent distress. uncomfortable, Behavior is calm, cooperative, kr3 appropriate for age, quiet. 14:45 Reassessment: No changes from previously documented assessment. Patient and/or family kr3 updated on plan of care and expected duration. Pain level reassessed. 15:45 Reassessment: No changes from previously documented assessment. Patient and/or family ll1 updated on plan of care and expected duration. Pain level reassessed. Vital Signs: 13:39 BP 101 / 59; Pulse 72; Resp 17; Temp 97.8; Pulse Ox 97% on R/A; Pain 0/10; ll1 13:45 BP 101 / 59; Pulse 69; Resp 17; Pulse Ox 99% on R/A; kr3 14:45 BP 90 / 71; Pulse 68; Resp 17; Pulse Ox 100% on R/A; kr3 15:44 BP 91 / 72; Pulse 56; ll1 16:00 BP 96 / 66; Pulse 64; Resp 20; Pulse Ox 100% ; kl 17:00 BP 80 / 52; Pulse 60; Resp 18; Pulse Ox 98% ; kl 18:00 BP 125 / 80; Pulse 58; Resp 18; Pulse Ox 100% ; kl 19:00 BP 97 / 69; Pulse 63; Resp 18; Pulse Ox 95% ; kl ED Course: 13:37 Patient arrived in ED. ll1 13:38 Raad Amezcua MD is Attending Physician. jr11 13:38 Arm band placed on Patient placed in an exam room, on a stretcher. ll1 13:41 Triage completed. ll1 13:44 Yaneth Abernathy, HENNY is Primary Nurse. kr3 13:56 XRAY Chest (1 view) In Process Unspecified. EDMS 15:44 SARS RAPID Sent. ll1 16:46 Salazar Mathis MD is Hospitalizing Provider. jr11 18:36 Inserted saline lock: 22 gauge in left antecubital area, using aseptic technique. kr3 23:27 No provider procedures requiring assistance completed. tw5 Administered Medications: 15:20 Drug: Heparin ([place] Drip) 12 units/kg/hr - (HEParin 05115 units, D5W 500 ml) kr3 {Co-Signature: ll1 (Brody Tejeda RN).} Route: IV; Rate: calculated rate; Site: left antecubital; 18:07 Drug: Aspirin 325 mg Route: PO; kr3 Outcome: 15:02 ER care complete, transfer ordered by . jr11 16:47 Decision to Hospitalize by Provider. jr11 06/19 06:22 Patient left the ED. kl Signatures: Dispatcher [employer] EDMaty Deng RN RN kl Lewis, Lynsay RN RN ll1 Samantha Renee tw5 Raad Amezcua MD MD jr11 Yaneth Abernathy RN RN kr3 Brody Tejeda RN ll1 Corrections: (The following items were deleted from the chart) 06/18 14:04 13:39 Chief complaint: Patient states: Very weak, and missed dialysis yesterday. EMS ll1 states: BP 90's/50's, vitals otherwise normal. Patient states low BP is normal. ll1
--- NOTE | 2022-06-18 15:03 | EDPHYS ---
Physician Documentation [facility] Name: Danielle Yan Age: 67 yrs Sex: Female : 1955 Arrival Date: 06/18/2022 Time: 13:37 Bed 7 Private MD: ED Physician Raad Amezcua HPI: 06/18 13:56 This 67 yrs old Female presents to ER via EMS with complaints of General Weakness - jr11 missed dialysis yesterday.. 13:56 Pt here ESRD MWF, missed dialysis because she felt to weak, no dysuria, does not jr11 urinate, no cough, no fever, no new pain. Onset: The symptoms/episode began/occurred yesterday. Severity of symptoms: At their worst the symptoms were moderate in the emergency department the symptoms are unchanged. fistula to RUE . Historical: - Allergies: 13:38 CEPHALOSPORINS; ll1 - PMHx: 13:38 Diabetes - NIDDM; factor 5 leiden; Renal Disease; Hypertension; Dialysis; ll1 Hypothyroidism; PERIPHERAL NEUROPATHY; Gout; - PSHx: 13:38 pacemaker; RUE dialysis graft; ll1 - Immunization history:: Client reports receiving the 2nd dose of the Covid vaccine. - Social history:: Smoking status: Patient denies any tobacco usage or history of. ROS: 13:56 All other systems are negative. jr11 Exam: 13:56 Constitutional: This is a well developed, well nourished patient who is awake, alert, jr11 and in no acute distress. Head/Face: Normocephalic, atraumatic. Eyes: Extra-ocular motions intact. Lids and lashes normal. Conjunctiva and sclera are non-icteric and not injected. Cornea within normal limits. Periorbital areas with no swelling, redness, or edema. ENT: Nares patent. No nasal discharge, no septal abnormalities noted. Oropharynx with no redness, swelling, or masses, exudates, or evidence of obstruction, uvula midline. Mucous membranes moist. Neck: Trachea midline, no thyromegaly or masses palpated, and no cervical lymphadenopathy. Supple, full range of motion without nuchal rigidity, or vertebral point tenderness. No Meningismus. Chest/axilla: Normal chest wall appearance and motion. Nontender with no deformity. No lesions are appreciated. Cardiovascular: Regular rate and rhythm with a normal S1 and S2. No gallops, murmurs, or rubs. Normal PMI, no JVD. No pulse deficits. Respiratory: diminished at the bases Abdomen/GI: Soft, non-tender, with normal bowel sounds. No distension or tympany. No guarding or rebound. No evidence of tenderness throughout. Back: No spinal tenderness. No costovertebral tenderness. Full range of motion. MS/ Extremity: Pulses equal, no cyanosis. Neurovascular intact. Full, normal range of motion. 3+ to pichardo Vital Signs: 13:39 BP 101 / 59; Pulse 72; Resp 17; Temp 97.8; Pulse Ox 97% on R/A; Pain 0/10; ll1 13:45 BP 101 / 59; Pulse 69; Resp 17; Pulse Ox 99% on R/A; kr3 14:45 BP 90 / 71; Pulse 68; Resp 17; Pulse Ox 100% on R/A; kr3 15:44 BP 91 / 72; Pulse 56; ll1 16:00 BP 96 / 66; Pulse 64; Resp 20; Pulse Ox 100% ; kl 17:00 BP 80 / 52; Pulse 60; Resp 18; Pulse Ox 98% ; kl 18:00 BP 125 / 80; Pulse 58; Resp 18; Pulse Ox 100% ; kl 19:00 BP 97 / 69; Pulse 63; Resp 18; Pulse Ox 95% ; kl MDM: 13:39 Patient medically screened. jr11 13:56 Differential Diagnosis ESRD, volume overload . Data reviewed: vital signs, nurses jr11 notes. ED course: Missed dialysis, with weakness, will get EKG, labs, reassess, no fever, no concern for infection at this time . 14:12 ED course: EKG interpreted by me shows ventricular paced rhythm, QRS prolonged 178 QTC jr11 prolonged 538, slightly peaked T waves, no STEMI.. 14:59 ED course: Pt again denies CP, +trop, in reviewing history, she had intermediate before jr11 at 0.08, today TS trop 600s. Will heparinize and TX to [facility] per her request for continuity of care. 16:46 ED course: MH declined, Del accepted . jr11 06/18 13:40 Order name: Basic Metabolic Panel; Complete Time: 14:50 jr11 06/18 13:40 Order name: CBC with Diff; Complete Time: 14:24 jr11 /29 13:40 Order name: LFT's; Complete Time: 14:50 06/18 13:40 Order name: Troponin HS; Complete Time: 14:50 06/18 15:38 Order name: SARS RAPID; Complete Time: 16:10 em1 06/18 16:10 Order name: Troponin High Sensitivity jr11 06/18 17:04 Order name: Troponin High Sensitivity EDMS 06/18 17:04 Order name: Troponin High Sensitivity EDMS 06/18 17:04 Order name: Troponin High Sensitivity EDMS 06/18 17:09 Order name: Basic Metabolic Panel EDMS 06/18 17:09 Order name: Basic Metabolic Panel EDMS 06/18 17:09 Order name: Basic Metabolic Panel EDMS 06/18 17:09 Order name: Basic Metabolic Panel EDMS 06/18 17:09 Order name: CBC with Automated Diff EDMS 06/18 13:40 Order name: XRAY Chest (1 view); Complete Time: 14:24 rust 06/18 17:03 Order name: Echo with Doppler EDMS 06/18 17:09 Order name: CBC with Automated Diff EDMS 06/18 17:09 Order name: CBC with Automated Diff EDMS 06/18 17:09 Order name: CBC with Automated Diff EDMS 06/18 17:09 Order name: Magnesium EDMS 06/18 17:09 Order name: Magnesium EDMS 06/18 17:09 Order name: Phosphorus EDMS 06/18 17:09 Order name: Phosphorus EDMS 06/18 19:52 Order name: CT EDMS 06/18 23:38 Order name: T4 Free EDMS 06/18 23:51 Order name: PTH Intact EDMS 06/18 23:55 Order name: Vitamin D, 25 (OH), TOTAL EDMS 06/19 00:01 Order name: Thyroid Stimulating Hormone EDMS 06/18 13:40 Order name: EKG; Complete Time: 13:40 06/18 13:40 Order name: Cardiac monitoring; Complete Time: 14:11 06/18 13:40 Order name: EKG - Nurse/Tech; Complete Time: 14:11 06/18 13:40 Order name: IV Saline Lock; Complete Time: 14:11 06/18 13:40 Order name: Labs collected and sent; Complete Time: 14:11 /29 13:40 Order name: O2 Per Protocol; Complete Time: 14:03 06/18 13:40 Order name: O2 Sat Monitoring; Complete Time: 14:03 06/18 17:09 Order name: Renal EDMS Administered Medications: 15:20 Drug: Heparin ([place] Drip) 12 units/kg/hr - (HEParin 36671 units, D5W 500 ml) kr3 {Co-Signature: elyse1 (Brody Tejeda RN).} Route: IV; Rate: calculated rate; Site: left antecubital; 18:07 Drug: Aspirin 325 mg Route: PO; kr3 Disposition Summary: 06/18/22 16:47 Hospitalization Ordered Hospitalization Status: Observation rust Provider: Salazar Mathis rust Condition: Stable(06/18/22 16:47) jr Problem: an acute exacerbation(06/18/22 16:47) jr Symptoms: are unchanged(06/18/22 16:47) rust Bed/Room Type: Standard rust Location: Telemetry/MedSurg (observation)(06/19/22 04:26) cg Room Assignment: [facility](06/19/22 04:26) cg Diagnosis - volume overload jr11 - Subsequent non-ST elevation (NSTEMI) myocardial infarction(06/18/22 16:47) rust Forms: - Medication Reconciliation Form 11 - SBAR form rust Critical care time excluding procedures: 15:01 Critical care time: Bedside Care: 20 minutes, Consultation: 5 minutes, Family rust Intervention: 6 minutes. Total time: 31 minutes Signatures: Dispatcher [employer] Nitza Mullen RN RN cg Lewis, Lynsay RN RN ll1 Lisa Moses RN RN jh5 Raad Amezcua MD MD jr11 Yaneth Abernathy RN RN kr3 Brody Tejeda RN ll1 Corrections: (The following items were deleted from the chart) 16:46 15:02 [place] [id number] jr11 16:46 15:02 [place] [id number] jr11 16:46 15:02 Higher level of care [place] [id number] 16:46 15:02 Stable rust jr 16:46 15:02 [place] [id number] 16:46 15:02 are unchanged rust 16:46 15:02 Subsequent non-ST elevation (NSTEMI) myocardial infarction rust jr11 16:46 15:02 Muscle weakness (generalized) [address] 1847 16:47 Telemetry/MedSurg (observation) [address] 1847 16:[address] 06/19 04:06/18 18:47 [facility] ER HOLD 5 06/19 04:06/18 18:47 ERHOLD- [facility]
[2022-06-18] MEDS ORDERED: HEPARIN/D5W 25,000 UNIT/500 ML BAG IV ONE (15:10)
[2022-06-18 16:07] LABS: SARS-CoV-2 Antigen Rapid Res Negative (Negative)
--- NOTE | 2022-06-18 17:07 | P.HP ---
Certification for Inpatient Patient admitted to: Observation With expected LOS: <2 Midnights Patient will require the following post-hospital care: None Practitioner: I am a practitioner with admitting privileges, knowledge of patient current condition, hospital course, and medical plan of care. Services: Services provided to patient in accordance with Admission requirements found in Title 42 Section 412.3 of the Code of Federal Regulations Patient History Date of Service: 06/18/22 Reason for admission: NSTEMI History of Present Illness: Mrs. Danielle Yan is a 67 year old female who has a past medical history of end-stage renal disease on MWF iHD (last dialyzed 06/14/2022), symptomatic bradycardia s/p PPM (early 2021), multiple valvulopathies (scheduled for triple valve repair on 07/27/2022), Factor V Leiden, coronary artery disease, type II diabetes mellitus, post-surgical hypothyroidism, and depression who presents to the [facility] Emergency Department for generalized weakness. She reports that, over the last one week, she has been experiencing progressively worsening generalized weakness. She states that this weakness has become so severe that she was unable to attend her dialysis session yesterday. She denies any obvious inciting or alleviating factors. She has not tried taking any medications for symptoms. She denies any recent changes in her medications. On review of systems, she denies any fevers, chills, headaches, dizziness, syncope, chest pain, palpitations, shortness of breath, wheezing, cough, abdominal pain, nausea/vomiting, diarrhea, constipation, hematochezia, melena, dysuria, hematuria, myalgia, or any other symptoms. She presented to the Emergency Department for further evaluation. Upon presentation, her vital signs were notable for a blood pressure of 91/72 (reports this as her normal). Her laboratory studies were notable for a troponin of 602.1. EKG revealed a paced-rhythm. Chest x-ray revealed, "diffusely prominent interstitial pattern along with cardiomegaly and mild vascular engorgement. And minimal failure or volume overload could be present. A prominent interstitial pattern is increased over baseline and mild diffuse interstitial edema or infiltrate unrelated to failure could be present. Prior imaging showed evidence for mediastinal masses. These are probably not grossly different but cannot be adequately surveilled using plain film. If not already addressed, the patient could undergo outpatient CT chest imaging for monitoring." In the Emergency Department, she was given aspirin and started on a heparin drip. She was admitted to the General Internal Medicine service for further evaluation. Allergies No Known Allergies Allergy (Verified 03/22/18 01:54) Home medications list reviewed: Yes Home Medications: Escitalopram Oxalate [Lexapro] 5 mg PO DAILY 05/03/12 Apixaban [Eliquis *] 5 tab PO BID 03/22/18 Gabapentin [Neurontin*] 200 mg PO BID 03/22/18 Levothyroxine [Synthroid*] 200 mcg PO [id number] 03/22/18 allopurinoL [Allopurinol] 100 mg PO DAILY 03/22/18 Linagliptin [Tradjenta] 5 mg PO ONCE 10/08/19 clonazePAM [Clonazepam] 0.5 mg PO BID PRN 10/08/19 clonazePAM [Klonopin] 1 mg PO BID 06/18/22 - Past Medical/Surgical History Diabetic: Yes -: HD -: NIDDM -: HTN -: Gout -: Hypothyroid -: Peripheral neuropathy -: BLE DVT 2010 and 2011 -: Renal Disease -: Thyroidectomy -: Choleycystectomy -: Carpal Tunnel -: Laminectomy -: Umbilical Hernia repair x2 -: Partial COlectomy- Bladder repair for rectovesical fistula -: Colostomy (and reversal) -: Spinal FUsion, Heel spurs BLE - Family History Mother -: Heart disease, Hypertension, Diabetes, Kidney disease Sister -: Hypertension - Social History Smoking Status: Never smoker Alcohol use: No CD- Drugs: No Caffeine use: Yes Review of Systems 10-point ROS is otherwise unremarkable General: Weakness (generalized) Eyes: Unremarkable ENT: Unremarkable Respiratory: Unremarkable Cardiovascular: Unremarkable Gastrointestinal: Unremarkable Genitourinary: Unremarkable Musculoskeletal: Unremarkable Integumentary: Unremarkable Neurological: Unremarkable Lymphatics: Unremarkable Physical Examination - Vital Signs Temperature: 97.8 F Blood Pressure: 91/72 Pulse: 56 Respirations: 17 Pulse Ox (%): 100 - Physical Exam General: Alert, In no apparent distress, Oriented x3 HEENT: Atraumatic, PERRLA, Mucous membr. moist/pink, EOMI, Sclerae nonicteric Neck: Supple, JVD not distended Respiratory: Clear to auscultation bilaterally, Normal air movement Cardiovascular: Regular rate/rhythm, Normal S1 S2, No gallops, No rubs, Edema (2+ bilateral pitting), Systolic murmur, Diastolic murmur Gastrointestinal: Normal bowel sounds, Soft and benign, Non-distended, No tenderness, No rebound, No guarding Musculoskeletal: No clubbing Integumentary: No rashes Neurological: Normal speech, Cranial nerves 3-12 intact, Normal affect - Studies Laboratory Data (last 24 hrs) 06/18/22 13:59: WBC 6.40, Hgb 12.9, Hct 38.4, Plt Count 166 06/18/22 13:59: Sodium 138, Potassium 4.0, BUN 55 H, Creatinine 9.46 H*, Glucose 123 H, Total Bilirubin 0.4, AST 4 L, ALT 17, Alkaline Phosphatase 56 Assessment and Plan - Plan # Generalized Weakness possibly secondary to Hypervolemia from End-Stage Renal Disease on MWF (iHD) # Deconditioning - Consulted Nephrology and spoke with Dr. Sevilla - recommendations appreciated - Consult PT - No indication for emergent dialysis at this time - Plan for dialysis in the morning # Concern for Non-ST Segment Elevation Myocardial Infarction # Coronary Artery Disease # Symptomatic Bradycardia s/p PPM (early 2021) # Multiple Valvulopathies (scheduled for triple valve repair on 07/27/2022) # Factor V Leiden complicated by Prior DVTs - Evaluation thus far: - EKG: paced rhythm, trend - Serial troponin: first was 602.1 - Ordered transthoracic echocardiogram - Ordered chest x-ray = " Diffusely prominent interstitial pattern along with cardiomegaly and mild vascular engorgement. And minimal failure or volume overload could be present. A prominent interstitial pattern is increased over baseline and mild diffuse interstitial edema or infiltrate unrelated to failure could be present. Prior imaging showed evidence for mediastinal masses. These are probably not grossly different but cannot be adequately surveilled using plain film. If not already addressed, the patient could undergo outpatient CT chest imaging for monitoring." - Management plan: - Consult Cardiology and spoke with Dr. Gaviria - recommendations appreciated - S/P aspirin 324 mg PO x 1 in ED - Start daily baby aspirin + atorvastatin - If cardiac ischemia confirmed, plan to start beta-cesario, CHARLENE- inhibitor/ARB as tolerated - Order CT chest # Type II Diabetes Mellitus - Correction scale insulin - Hold home Tradjenta while hospitalized # Post-Surgical Hypothyroidism - She requested thyroid function tests - I explained that these may not be interpretable given her surgical history - Thyroid function tests were obtained at her request - Continue home levothyroxine # Depression - Continue home escitalopram # Gout - Continue home allopurinol Salazar Mathis M.D. Discharge Plan: Home Plan to discharge in: 24 Hours - Advance Directives Does patient have a Living Will: No Does patient have a Durable POA for Healthcare: No
--- NOTE | 2022-06-18 17:35 | P.PN ---
Brief Renal note (chart review only, full consult to follow): Pt is a [facility] dialysis pt, dialyzing MWF, pt reportedly missed HD Wed, labs this afternoon show no critical abnormalities. CXR shows interstitial pulm edema but pt denies any acute shortness of breath and is on RA. Will plan to dialyze first thing in AM, HD orders entered and communicated to HD RN and case discussed with Dr. Mathis. Pt has chronic hypotension, despite that is typically able to tolerate UF on treatments.
[2022-06-18] MEDS ORDERED: ASPIRIN 325 MG TAB ONE (17:54)
[2022-06-18 18:47] VITALS: BMI 28.3
[2022-06-18] MEDS ORDERED: clonazePAM 0.5 MG TAB PO PRN (19:18)
--- NOTE | 2022-06-18 19:51 | RAD REPORT ---
EXAM DESCRIPTION: CT - Thorax Wo Con - 06/18/2022 7:32 pm CLINICAL HISTORY: abnormal CXR COMPARISON: Thorax Wo Con dated 03/21/2018; Chest Single View dated 06/18/2022; C Spine Wo Con dated 04/26/2020 TECHNIQUE: Axial 5 mm thick images of the chest were obtained without IV contrast. All CT scans are performed using dose optimization technique as appropriate and may include automated exposure control or mA/KV adjustment according to patient size. FINDINGS: No consolidation, focal infiltrate or lung parenchymal mass lesions seen. Minimal scarring changes are present. Interstitial markings are mildly prominent. No pleural thickening or pleural ef fusion. No pneumothorax. Small nonspecific mediastinal and hilar lymph nodes are present. Dense calcifications of the bronchia l tree seen. No gross aortic or pulmonary artery finding suspected. Cardiomegaly is present without pericardial effusion. Approximately 3 centimeter sized mass seen in prior imaging between the esophagus and spine in the up permost mediastinum is no longer present. There is a small lymph node along the right lateral margin of the trachea at this location that could be reactive or possibly remnant of the mass. No informatio n is available to determine if the mass was diagnosed, resected or has otherwise been treated. The ri m calcified mass along the lateral margin of the aortic arch and AP window is unchanged from the 2019 CT imaging. A larger noncalcified cystic mass was present in 2018. The rim calcification in size red uction would indicate a benign process. No chest wall mass or abnormal axillary lymphadenopathy. IMPRESSION: No focal mass or consolidation of the lung parenchyma. Cardiomegaly is present. A mild failure or volume overload is suspected. This is better appreciated o n the portable chest film. The upper mediastinal mass, between the esophagus and spine, seen on the 2019 CT imaging is no longer present. The rim calcified cystic mass lateral margin of the aortic arch has reduced in size from 20 18. This is a benign finding.
[2022-06-18] MEDS: GABAPENTIN 100 MG CAP PO SCH (21:00)
[2022-06-18] MEDS: ATORVASTATIN 40 MG TAB PO SCH (21:00)
[2022-06-18] MEDS: clonazePAM 1 MG TAB PO SCH (21:00)
[2022-06-19 04:40] LABS: Absolute Lymphocytes (CBC) 1.2 K/uL (0.7-4.9); Hematocrit 35.4 % (36.0-45.0); Lymphocytes % 19.8 % (15.3-44.8); MPV 8.2 fL (7.6-11.3); RBC Red Blood Cell Count 3.72 M/uL (3.86-4.86)
[2022-06-19 05:06] LABS: Phosphorus 7.4 mg/dL (2.5-4.9); Potassium 3.8 mmol/L (3.5-5.1)
[2022-06-19] MEDS ORDERED: LEVOTHYROXINE SOD 0.1 MG TAB PO SCH (06:00)
--- NOTE | 2022-06-19 06:25 | EKG ---
Test Date: 2022-06-18 Test Time: 14:00:24 Project Manager Senior: MEASUREMENT RESULTS: Intervals: Rate: 64 CA: QRSD: 178 QT: 522 QTc: 538 Clarissa: P: 57 CA: QRS: -89 T: 88 INTERPRETIVE STATEMENTS: Ventricular-paced rhythm Abnormal ECG Compared to ECG 03/08/2022 18:48:38 Sinus rhythm no longer present Left-axis deviation no longer present Right bundle-branch block no longer present Myocardial infarct finding no longer present Electronically Signed On 06-19-22 06:24:05 CDT by Osman Gaviria
[2022-06-19] MEDS: MIDODRINE HCL 5 MG TABLET PO SCH ×5 (08:46→20:38)
[2022-06-19] MEDS: GABAPENTIN 100 MG CAP PO SCH ×2 (08:46→20:38)
[2022-06-19] MEDS: clonazePAM 1 MG TAB PO SCH ×2 (08:46→20:38)
[2022-06-19] MEDS ORDERED: allopurinoL 100 MG TAB PO SCH (09:00)
[2022-06-19] MEDS ORDERED: ASPIRIN 81 MG CHEWABLE TABLET PO SCH (09:00)
[2022-06-19] MEDS ORDERED: ESCITALOPRAM 20 MG TAB PO SCH (09:00)
--- NOTE | 2022-06-19 11:02 | P.CNS ---
Date of Consult: 06/19/22 Reason for Consult: ESRD, management of fluid status Requesting Physician: Salazar Mathis Chief Complaint: NSTEMI History of Present Illness: Mrs. Danielle Yan is a 67 year old female who has a past medical history of end-stage renal disease on MWF iHD (last dialyzed on Wed), symptomatic bradycardia s/p PPM (early 2021), multiple valvulopathies (scheduled for triple valve repair on 07/27/2022), Factor V Leiden, coronary artery disease, type II diabetes mellitus, post-surgical hypothyroidism, and depression who presents to the [facility] Emergency Department for generalized weakness yesterday. Pt missed HD Wed because she felt she was too weak and was afraid of falling. She has been experiencing progressively worsening generalized weakness. She denies any active CP, dyspnea or increase in peripheral edema. Allergies No Known Allergies Allergy (Verified 03/22/18 01:54) Home Medications: Escitalopram Oxalate [Lexapro] 5 mg PO DAILY 05/03/12 Apixaban [Eliquis *] 5 tab PO BID 03/22/18 Gabapentin [Neurontin*] 200 mg PO BID 03/22/18 Levothyroxine [Synthroid*] 200 mcg PO [id number] 03/22/18 allopurinoL [Allopurinol] 100 mg PO DAILY 03/22/18 Linagliptin [Tradjenta] 5 mg PO ONCE 10/08/19 clonazePAM [Clonazepam] 0.5 mg PO BID PRN 10/08/19 clonazePAM [Klonopin] 1 mg PO BID 06/18/22 - Past Medical/Surgical History Diabetic: Yes -: HD -: NIDDM -: HTN -: Gout -: Hypothyroid -: Peripheral neuropathy -: BLE DVT 2010 and 2011 -: Renal Disease -: Thyroidectomy -: Choleycystectomy -: Carpal Tunnel -: Laminectomy -: Umbilical Hernia repair x2 -: Partial COlectomy- Bladder repair for rectovesical fistula -: Colostomy (and reversal) -: Spinal FUsion, Heel spurs BLE - Family History Mother Medical History: Heart disease, Hypertension, Diabetes, Kidney disease Sister Medical History: Hypertension - Social History Smoking Status: Never smoker Alcohol use: No CD- Drugs: No Caffeine use: Yes Place of Residence: Home Review of Systems General: Weakness Eyes: Unremarkable ENT: Unremarkable Respiratory: SOB with Excertion Cardiovascular: Other (PPM, valvular heart disease) Gastrointestinal: Unremarkable Genitourinary: Unremarkable Musculoskeletal: Unremarkable Neurological: Weakness Lymphatics: Unremarkable Physical Examination Temp Pulse Resp BP Pulse Ox 96.9 F 53 18 82/51 L 98 06/19/22 08:00 06/19/22 08:00 06/19/22 08:00 06/19/22 08:00 06/19/22 08:00 General: Alert, In no apparent distress, Oriented x3 HEENT: Atraumatic, Normocephalic, EOMI Neck: Supple Respiratory: Normal air movement, Other (No rhonchi or wheezes) Cardiovascular: No edema, Regular rate/rhythm, Systolic murmur, Diastolic murmur Gastrointestinal: Soft and benign, Non-distended, No tenderness Musculoskeletal: No clubbing, No swelling, No contractures Integumentary: No rashes, No breakdown Neurological: Normal speech, Normal tone, Normal affect Laboratory Data (last 24 hrs) 06/18/22 13:59: WBC 6.40, Hgb 12.9, Hct 38.4, Plt Count 166 06/18/22 13:59: Sodium 138, Potassium 4.0, BUN 55 H, Creatinine 9.46 H*, Glucose 123 H, Total Bilirubin 0.4, AST 4 L, ALT 17, Alkaline Phosphatase 56 Conclusions/Impression: 1. ESRD 2. Hypotension, unspecified 3. Azotemia 4. Weakness 5. Aortic stenosis, non rheumatic 6. Pulmonary edema, chronic 7. Hyperphosphatemia -Missed HD Wed, will plan to dialyze today for metab clearance and UF as tolerated -CXR imaging likely consistent with interstitial pulm edema but UF will be challenging with her low BP state although she is typically able to tolerate UF on HD at her OP clinic despite chronic hypotension. Will employ measures to limit intra dialytic hypotension -Will clear some phosphorus with HD, resume binders -Plan for transfer to tertiary center post HD, discussed with Dr. Mathis, pt's cardiothoracic surgeon at has contacted Dr. Mathis and plans to accept pt later today for evaluation for surgery, other Thank you for this referral, Patrick Sevilla MD, [facility]
--- NOTE | 2022-06-19 13:07 | CON ---
Date of Consultation: 06/19/2022 Reason For Consultation: Elevated troponin and valvular heart disease. History Of Present Illness: Ms. Yan is 67. She has end-stage renal disease, had missed her dialy sis. She is a do not resuscitate, came in with weakness, was found to have elevated troponin of 596, which went down to 547. It is trending down. She had a creatinine of 9.91. Blood pressure was sli ghtly on the low side. Her TSH was 142. She denied any chest pain, nausea, vomiting, diaphoresis, P ND, orthopnea, pedal edema, palpitations, or syncope. She apparently has a valvular heart surgery pl anned on July 27 in [place]. Past Medical History: Includes end-stage renal disease, diabetes, factor V deficiency, hy pertension, hypothyroidism, neuropathy, and gout. Review of Systems: Positive for DNR. Social History: Negative. Family History: Noncontributory. Allergies: NONE. Medications At Home: Include aspirin, Lipitor, Synthroid, Neurontin, allopurinol, and Eliquis. Physical Examination: General: She appeared to be rather weak, but no complaint in particular. Vital Signs: Stable. Afebrile. Her blood pressure was when I saw her, systolic. She wa s in sinus rhythm. HEENT: Negative. Neck: Supple with no bruit. Chest: Clear. Cardiac: Revealed a regular rhythm and rate with a 2/6 systolic ejection murmur radiating to the car otid. She also had 1/6 early diastolic murmur at the apex. Abdomen: Obese. Extremities: Revealed 1+ edema. Pulses were present distally bilaterally. Neurologic: Patient appeared to be weak, but nonfocal. Skin: Dry and intact. Laboratory Data: Her workup revealed a creatinine of 9.91. Troponin is 596. TSH is 142. EKG showe d right bundle-branch block. Chest x-ray showed volume overload. CT of the chest is pending. Impression And Plan: 1.Elevated troponin, weakness. Creatinine of 9.91. Troponin is 596. This is secondary to demand i schemia. Echocardiogram is pending. She apparently has valvular heart surgery planned on July 27 in [place]. We will continue with that plan. 2.Her other problems include end-stage renal disease. She has been dialyzed today. She had missed 1 dialysis, therefore she has volume overload. 3.Diabetes, well controlled. 4.Do not resuscitate status. 5.Factor V deficiency, on Eliquis. This needs to be continued until her valve surgery is closed. 6.Hypertension, well controlled. 7.Hypothyroidism, poorly controlled. We need to increase her Synthroid dose. 8.Neuropathy. 9.Gout. 10.Right bundle-branch block. Again, patient needs to be dialyzed. Echocardiogram is pending. Inc rease Synthroid level. Continue present regimen. I will follow up with her carton repairer in [place] down the road. ANIA/RUPERTO Voice ID: [id number] Report ID: [id number]
[2022-06-19] MEDS ORDERED: ACETAMINOPHEN 325 MG TABLET PO PRN (17:12)
--- NOTE | 2022-06-19 17:28 | P.DS ---
Admission Date: 06/19/22 Discharge Date: 06/19/22 Disposition: TRANSFER TO [facility] Discharge Condition: GOOD Reason for Admission: NSTEMI Consultations: 1. Cardiology 2. Nephrology Hospital Course: DIAGNOSES: # Generalized Weakness possibly secondary to Hypervolemia from End-Stage Renal Disease on MWF (iHD) # Uncontrolled Post-Surgical Hypothyroidism # Type II Non-ST Segment Elevation Myocardial Infarction (Demand Ischemia) # Deconditioning # Coronary Artery Disease # Symptomatic Bradycardia s/p PPM (early 2021) # Multiple Valvulopathies (scheduled for triple valve repair on 07/27/2022) # Factor V Leiden complicated by Prior DVTs # Type II Diabetes Mellitus # Depression # Gout HOSPITAL COURSE: Mrs. Danielle Yan is a 67 year old female who has a past medical history of end-stage renal disease on MWF iHD (last dialyzed 06/14/2022), symptomatic bradycardia s/p PPM (early 2021), multiple valvulopathies (scheduled for triple valve repair on 07/27/2022), Factor V Leiden, coronary artery disease, type II diabetes mellitus, post-surgical hypothyroidism, and depression who was admitted to the [facility] on 06/18/2022 for generalized weakness. She was admitted to the Medicine service. Her laboratory evaluation was notable for a TSH of 142, a Free T4 0.14, a 25-OH vitamin D of 20.9, and a PTH of 335.9. Her troponin trend was 602.1 -> 596.5 -> 549.3 -> 547.7. Her chest x-ray revealed, "diffusely prominent interstitial pattern along with cardiomegaly and mild vascular engorgement. And minimal failure or volume overload could be present. A prominent interstitial pattern is increased over baseline and mild diffuse interstitial edema or infiltrate unrelated to failure could be present. Prior imaging showed evidence for mediastinal masses. These are probably not grossly different but cannot be adequately surveilled using plain film. If not already addressed, the patient could undergo outpatient CT chest imaging for monitoring." Her CT chest revealed, "No focal mass or consolidation of the lung parenchyma. Cardiomegaly is present. A mild failure or volume overload is suspected. This is better appreciated on the portable chest film. The upper mediastinal mass, between the esophagus and spine, seen on the 2020 CT imaging is no longer present. The rim calcified cystic mass lateral margin of the aortic arch has reduced in size from 2018. This is a benign finding." Cardiology was consulted and Dr. Gaviria evaluated her. He believes that her NSTEMI is type II from demand ischemia. Nephrology was consulted and Dr. Sevilla evaluated her. She underwent hemodialysis earlier today. I recieved a call from Soledad Farah NP, who works with her cardiothoracic surgeon, Dr. Andriy Grayson M.D. She has requested that she be transferred to [facility], where he can medically optimize her and possibly prepare for surgery sooner. She was in agreement with this plan. I updated Dr. Marie regarding her laboratory abnormalities, and he stated that they will have a hospitalist service available to assist and co-manage her care. On 06/19/2022, she was seen on rounds and deemed medically stable for transfer. She and her family members were given the opportunity to ask questions and reported no further questions. Furthermore, all questions were answered to the best of my ability. A copy of this discharge summary will be sent to the above providers to facilitate continuity of care. Today, I personally spent 40 minutes on her case, of which greater than 50% of the time was spent in patient education, counseling, and coordination of care as described above. - Physical Exam General: Alert, In no apparent distress, Oriented x3 HEENT: Atraumatic, PERRLA, Mucous membr. moist/pink, EOMI, Sclerae nonicteric Neck: Supple, JVD not distended Respiratory: Clear to auscultation bilaterally, Normal air movement Cardiovascular: Regular rate/rhythm, Normal S1 S2, No gallops, No rubs, Edema (2+ bilateral pitting), Systolic murmur, Diastolic murmur Gastrointestinal: Normal bowel sounds, Soft and benign, Non-distended, No tenderness, No rebound, No guarding Musculoskeletal: No clubbing Integumentary: No rashes Neurological: Normal speech, Cranial nerves 3-12 intact, Normal affect Vital Signs/Physical Exam: Temp Pulse Resp BP Pulse Ox 97.4 F 54 18 86/46 L 96 06/19/22 16:00 06/19/22 16:00 06/19/22 16:00 06/19/22 16:06/19/22 16:00 Laboratory Data at Discharge: WBC 6.10 K/uL (4.3-10.9) 06/19/22 04:28 Hgb 11.7 g/dL (12.0-15.0) L D 06/19/22 04:28 Hct 35.4 % (36.0-45.0) L 06/19/22 04:28 Plt Count 162 K/uL (152-406) 06/19/22 04:28 Sodium 137 mmol/L (136-145) 06/19/22 04:28 Potassium 3.8 mmol/L (3.5-5.1) 06/19/22 04:28 BUN 61 mg/dL (7-18) H 06/19/22 04:28 Creatinine 9.91 mg/dL (0.55-1.3) H* 06/19/22 04:28 Glucose 97 mg/dL (74-106) 06/19/22 04:28 Phosphorus 7.4 mg/dL (2.5-4.9) H 06/19/22 04:28 Magnesium 2.0 mg/dL (1.8-2.4) 06/19/22 04:28 Total Bilirubin 0.4 mg/dL (0.2-1.0) 06/18/22 13:59 AST 4 U/L (15-37) L 06/18/22 13:59 ALT 17 U/L (12-78) 06/18/22 13:59 Alkaline Phosphatase 56 U/L (45-117) 06/18/22 13:59 Home Medications: RX: Escitalopram Oxalate [Lexapro] 5 mg PO DAILY 05/03/12 RX: Apixaban [Eliquis *] 5 tab PO BID 03/22/18 RX: Gabapentin [Neurontin*] 200 mg PO BID 03/22/18 RX: Levothyroxine [Synthroid*] 200 mcg PO [id number] 03/22/18 RX: allopurinoL [Allopurinol] 100 mg PO DAILY 03/22/18 RX: Linagliptin [Tradjenta] 5 mg PO ONCE 10/08/19 RX: clonazePAM [Clonazepam] 0.5 mg PO BID PRN 10/08/19 RX: clonazePAM [Klonopin] 1 mg PO BID 06/18/22 RX: Aspirin Chewable [Aspirin Chewable*] 81 mg PO DAILY tab.chew 06/19/22 RX: Atorvastatin Calcium [Lipitor] 40 mg PO BEDTIME tab 06/19/22 RX: Midodrine HCl [Proamatine*] 10 mg PO TID tab 06/19/22 Physician Discharge Instructions: 1. Continued Care at [facility] Diet: AHA Activity: Ad jerome Followup: NONE,NONE [Primary Care Provider] -
[2022-06-19] MEDS: ATORVASTATIN 40 MG TAB PO SCH (20:38)
[2022-06-19] MEDS ORDERED: NA CHLORIDE 0.9% 250 ML ONE (21:06)
[2022-06-20 01:35] VITALS: TEMP 97.3; O2SAT 97
[2022-06-20 01:46] VITALS: BP 95/55
[2022-06-20] MEDS ORDERED: NEPRO SHAKE 237 ML CAN PO SCH (09:00)
--- NOTE | 2022-06-22 09:07 | ECHO ---
HEIGHT: 5 ft 3 in WEIGHT: 160 lb 0 oz DATE OF STUDY: 06/19/[address]: Salazar Mathis MD 2-DIMENSIONAL: YES M.MODE: YES DOPPLER: YES COLOR FLOW: YES TDS: NO PORTABLE: YES DEFINITY: NO BUBBLE STUDY: NO DIAGNOSIS: CONGESTIVE HEART FAILURE CARDIAC HISTORY: CATHERIZATION:YES SURGERY: NO PROSTHETIC VALVE: NO PACEMAKER: YES MEASUREMENTS (cm) DIASTOLIC (NORMALS) SYSTOLIC (NORMALS) IVSd 1.2 (0.6-1.2) LA Diam 4.3 (1.9-4.0) LVEF 58% LVIDd 4.4 (3.5-5.7) LVIDs 3.1 (2.0-3.5) %FS 31% LVPWd 1.4 (0.6-1.2) Ao Diam 2.6 (2.0-3.7) 2 DIMENSIONAL ASSESSMENT: RIGHT ATRIUM: NORMAL LEFT ATRIUM: DILATED RIGHT VENTRICLE: NORMAL LEFT VENTRICLE: LEFT VENTRICULAR HYPERTROPHY TRICUSPID VALVE: NORMAL MITRAL VALVE: STENOTIC PULMONIC VALVE: NORMAL AORTIC VALVE: STENOTIC PERICARDIAL EFFUSION: NONE AORTIC ROOT: NORMAL LEFT VENTRICULAR WALL MOTION: NORMAL LEFT VENTRICUALR EJECTION FRACTION. DECREASED LEFT VENTIRCULAR COMPLIANCE. DOPPLER/COLOR FLOW: MILD TRICUSPID REGURGITATION. SEVERE MITRAL STENOSIS. MITRAL VALVE AREA 0.7 CENTIMETERS SQUARED. SEVERE AORTIC STENOSIS. AORTIC VALVE AREA 0.6 CENTIMETERS SQUARED. COMMENTS: SEVERE MITRAL STENOSIS. MITRAL VALVE AREA 0.7 CENTIMETERS SQUARED. SEVERE AORTIC STENOSIS. AORTIC VALVE AREA 0.6 CENTIMETERS SQUARED. LEFT VENTRICULAR HYPERTROPHY. DECREASED LEFT VENTIRCULAR COMPLIANCE. MODERATE PULMONARY HYPERTENSION 55 mmHg. TECHNOLOGIST: Renan PASCUAL
== END 2022-06-19 22:34 | disposition short-term general hospital (02) | DRG 640 ==
LOC: ER 13:33 → ERHOLD 17:00 → 4TH 06-19 04:45 → OBSVTOIN 06-19 13:18
PROVIDERS: ADMIT Internal Medicine; ATTEND Internal Medicine
PROC: 5A1D70Z Performance of Urinary Filtration, Intermittent, Less than 6 Hours Per Day (ICD-10-PCS; principal; 2022-06-19)
DX: E87.70 Fluid overload, unspecified (principal); N18.6 End stage renal disease; I21.A1 Myocardial infarction type 2; D68.51 Activated protein C resistance; I12.0 Hypertensive chronic kidney disease with stage 5 chronic kidney disease or end stage renal disease; J81.1 Chronic pulmonary edema; E11.22 Type 2 diabetes mellitus with diabetic chronic kidney disease; E11.40 Type 2 diabetes mellitus with diabetic neuropathy, unspecified; I95.89 Other hypotension; M10.9 Gout, unspecified; F32.A Depression, unspecified; I35.0 Nonrheumatic aortic (valve) stenosis; I45.10 Unspecified right bundle-branch block; E83.39 Other disorders of phosphorus metabolism; E89.0 Postprocedural hypothyroidism; I25.10 Atherosclerotic heart disease of native coronary artery without angina pectoris; R00.1 Bradycardia, unspecified; Z95.0 Presence of cardiac pacemaker; Z88.1 Allergy status to other antibiotic agents; Z99.2 Dependence on renal dialysis; Z79.4 Long term (current) use of insulin; Z79.01 Long term (current) use of anticoagulants; Z90.49 Acquired absence of other specified parts of digestive tract; Z91.15 Patient's noncompliance with renal dialysis; Z86.718 Personal history of other venous thrombosis and embolism; Z79.899 Other long term (current) drug therapy; Z79.890 Hormone replacement therapy; Z20.822 Contact with and (suspected) exposure to COVID-19
CPT/HCPCS: 36415; 71045; 71250; 80048; 80076; 82306; 82947; 83735; 83970; 84100; 84439; 84443; 84484; 85025; 87811; 90935; 93005; 93306; 96374; 99285; G0378; J1644; J7050

== ENCOUNTER 2022-08-20 14:11 | Emergency (ER) | payer OTHER ==
--- OUTSIDE RECORDS SUMMARY | 2022-08-20 14:24 | XMS REPORT | Continuity of Care Document ---
:1955 Author Organization [facility] t Address [address] [place] [address] Care Team Providers Name Role Phone Humble Boyle MD Primary Care Physician [id number] Attending Clinician Unavailable ARMEN BULL Attending Clinician Unavailable Justice Marsh Attending Clinician Unavailable NI HAMMOND NATASHA Attending Clinician Unavailable KRYSTAL DOUGHERTY Attending Clinician Unavailable RIZWAN MCHUGH Attending Clinician Unavailable REYES QUINTERO Attending Clinician Unavailable HUMBLE BOYLE Attending Clinician Unavailable JERSEY CARD Attending Clinician Unavailable DAVIS STEEL Attending Clinician Unavailable ARMEN BULL Attending Clinician Unavailable Armen Bull Attending Clinician Zac Stoner RN Attending Clinician Unavailable KANDACE SANTOS Attending Clinician Unavailable Christine Bolivar MA Attending Clinician Unavailable Lanre Barlow Attending Clinician LANRE BARLOW Attending Clinician Unavailable Lew Chamberlain Attending Clinician Enzo INMAN, Tammi Attending Clinician Unavailable Leana Rizvi Attending Clinician Unavailable Elvira Moreira MD Attending Clinician Hilario GREENE, Keegan Attending Clinician Rowan GREENE, Bahman Johnson Attending Clinician Clara GREENE, Gabriela Attending Clinician Gaurav GREENE, Keith Attending Clinician Provider, Unknown Attending Clinician Unavailable Shasta Olivas Attending Clinician Unavailable Kim Ann RN Attending Clinician Unavailable Alisa Oakley MA Attending Clinician Unavailable Bill Ann MD Attending Clinician Lee Ann GREENE, Peng Kaplan Attending Clinician Juan Deshpande Attending Clinician Jessica Boles Attending Clinician Unavailable Kisha Driscoll Attending Clinician Unavailable Cee INMAN, Cheyenne Attending Clinician Unavailable Johana GREENE, Allan Gore Attending Clinician [phone] Tammi Gonzalez LVN Attending Clinician Unavailable Phyllis INMAN, Clementina Attending Clinician Unavailable Angela Romero MA Attending Clinician Unavailable Jazmine Noble Attending Clinician Unavailable Corinne GREENE, Morena Attending Clinician Kandace Zarate Attending Clinician Unavailable See Carr DO Attending Clinician Juventino Girard MD Attending Clinician Grabiel Gould MD Attending Clinician VASCULAR, CARLOTTA Attending Clinician Unavailable GRABIEL GOULD M.D. Attending Clinician Unavailable TEA STEVEN Attending Clinician Unavailable Jersey Card Attending Clinician CO19, JEAN Attending Clinician Unavailable JERSEY CARD M.D. Attending [...] Attending Clinician DORINDA SILVA Attending Clinician Unavailable KRYSTAL DOUGHERTY M.D. Attending Clinician Unavailable Ulises Beatty Jr Attending Clinician ULISES BEATTY Attending Clinician Unavailable LIANET LOUIS M.D. Attending Clinician Unavailable Justice Marsh Attending Clinician FANTASMA MANZANO M.D. Attending Clinician Unavailable VASCULAR, MHMP Attending Clinician Unavailable Krystal Dougherty Attending Clinician Marlys Sainz Attending Clinician MARLYS SAINZ M.D. Attending Clinician Unavailable LIVAN MACIEL M.D. Attending Clinician Unavailable Jhonatan Petersen Jr Attending Clinician JHONATAN PETERSEN M.D. Attending Clinician Unavailable Suraj Estes Attending Clinician VASCULAR, SURGERY Attending Clinician Unavailable ROSELYN ANN M.D. Attending Clinician Unavailable RADHA HOLDEN M.D. Attending Clinician Unavailable Lianet Louis Attending Clinician GENERAL, SERVICE Attending Clinician Unavailable MED PROVIDER, TCM Attending Clinician Unavailable Patrice Messer Attending Clinician Brunson, Ranjan, M.D. Attending Clinician Unavailable Davi Jones Attending Clinician DAVI JONES M.D. Attending Clinician Unavailable Prince Cindi Ariza Attending Clinician MARYBETH DAVID M.D. Attending Clinician Unavailable ADEEL DAVIDSON APRN Attending Clinician Unavailable Marybeth David Attending Clinician Riaz Galvan Attending Clinician Oh Lockett Attending Clinician OH LOCKETT M.D. Attending Clinician Unavailable Laine Lynn Jr Attending Clinician FEDERICO CASTRO M.D. Attending Clinician Unavailable Kevin Galvez Attending Clinician Angie Angulo Attending Clinician Yuly Oliver Attending Clinician Arnaldo Torres Attending Clinician Reena Mckeon Attending Clinician Cirilo Licona Attending Clinician Frida Kumari Attending Clinician [id number] Admitting Clinician Unavailable Justice Marsh Admitting Clinician Unavailable NI HAMMOND NATASHA Admitting Clinician Unavailable Humble Boyle Admitting Clinician Unavailable Armen Bull Admitting Clinician ARMEN BULL Admitting Clinician Unavailable KEEGAN BOWLES Admitting Clinician Unavailable Kandace Zarate Admitting Clinician Unavailable JUVENTINO GIRARD Admitting Clinician Unavailable Davis Steel Admitting Clinician DAVIS STEEL Admitting Clinician Unavailable Krystal Dougherty Admitting Clinician KRYSTAL DOUGHERTY Admitting Clinician Unavailable Ulises Beatty Jr Admitting Clinician ULISES BEATTY Admitting Clinician Unavailable Justice Marsh Admitting Clinician Jhonatan Petersen Jr Admitting Clinician Samira Trevorronaldo Rolon Admitting Clinician Robert Salter Admitting Clinician Dorinda Silva Admitting Clinician Kevin Galvez Admitting Clinician Yuly Oliver Admitting Clinician Cirilo Licona Admitting Clinician Payers Payer Name Policy Type Policy Number Effective Date Expiration Date S wendy MEDICARE PART A [id number] 2011 AND B 00:00:00 MCR MCR [id number] [facility] [id number] Problems Condition Condition Condition Status Onset Resolution Last Treating Co mments Source Name Details Category Date Date Treatment Clinician Date 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[facility] episode of episode of 7-20 He alth 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:00: major major 00 depressive depressive disorder disorder Morbid Morbid Disease Active [facility] (severe) (severe) 7-20 Health obesity obesity 00:00: due to due to 00 excess excess calories calories Secondary Secondary Disease Active UT hyperparat hyperparat 7-20 He alth hyroidism hyroidism 00:00: 00 Severe Severe Disease Active [facility] aortic aortic 7-19 Health stenosis stenosis 00:00: 00 Severe Severe Disease Active [facility] mitral mitral 7-19 Health valve valve 00:00: stenosis stenosis 00 Moderate Moderate Disease Active UT tricuspid tricuspid 7-19 Heal th regurgitat regurgitat 00:00: ion ion 00 Severe Severe Disease Active [facility] pulmonary pulmonary 7-19 Heal th hypertensi hypertensi 00:00: on on 00 ESRD (end ESRD (end Disease Active [facility] stage stage 7-19 Health renal renal 00:00: disease) disease) 00 on on dialysis dialysis Atrial Atrial Disease Active UT fibrillati fibrillati 5-26 He alth on on 00:00: 00 PVD PVD Disease Active [facility] (periphera (periphera 5-11 st l vascular l vascular 00:00: Ho spita disease) disease) 00 l Obesity Obesity Disease Active [facility] (BMI (BMI 5-11 st 30-39.9) 30-39.9) 00:00: Hospit a 00 l Pre-transp Pre-transp Disease Active Overview : [facility] lant lant 4-[address] evaluation evaluation 00:00: g of this Hospita for heart for heart 00 note l transplant transplant might be different from the original. Added automatic ally from request for surgery [id number] CHF CHF Disease Active Overview: [facility] (congestiv (congestiv 4-[address] heart e heart 00:00: g of this Hospi ta failure), failure), 00 note l NYHA class NYHA class might be I, I, different chronic, chronic, from the combined combined original. Added automatic ally from request for surgery [id number] Sick sinus Sick sinus Disease Active 2020-09 M [facility]i syndrome syndrome 1-30 st 00:00: Hospita 00 l Pacemaker Pacemaker Disease Active 2020-09 Overview: [facility] [address] 00:00: g of this Hospita 00 note l might be different from the original. RV Macra pacemaker in place. Nonrheumat Nonrheumat Disease Active 2020-09 M ethodi [...] dism 00 l Nonrheumat Nonrheumat Disease Active 2021-0 M ethodi ic aortic ic aortic 02-22 st valve valve 00:00: Hospita stenosis stenosis 00 l LBBB (left LBBB (left Disease Active M ethodi bundle bundle 02-22 st branch branch 00:00: Hospita block) block) 00 l Orthostati Orthostati Disease Active M ethodi c c 02-21 st hypotensio hypotensio 00:00: Ho spita n n 00 l ESRD (end ESRD (end Disease Active [facility] stage stage 02-21 st renal renal 00:00: Hospita disease) disease) 00 l Hypotensio Hypotensio Disease Active M ethodi n n 02-21 st 00:00: Hospita 00 l Abscess of Abscess of Disease Active U T vulva vulva 01-21 Health 00:00: 00 Chronic Chronic Disease Active UT diastolic diastolic 01-29 th heart heart 00:00: failure failure 00 Anxiety [...] 2 Disease Active [facility] diabetes diabetes 01-29 st mellitus mellitus 00:00: Hospit a with with 00 l diabetic diabetic nephropath nephropath y, without y, without long-term long-term current current use of use of insulin insulin Factor V Factor V Disease Active Metho di Leiden Leiden 03-22 st mutation mutation 00:00: Hospit a 00 l [...] 02-12 Health substanc 00:00: e 00 Cephalos DA Active MO 2020-09 [facility] porins 0-20 Loving 00:00: Healthc 00 are [facility] Cephalos DA Active MO ITCHING 2020-09 [facility] porins 0-20 Herrera 00:00: Healthc 00 are [facility] Cephalos Propensi Active Itching 2020-09 Hives Metho di porins ty to 0-20 st adverse 00:00: Hospita reaction 00 l s to drug Cephalos Allergy Active Itching 2020-09 Hives UT porins to 0-20 Health substanc 00:00: e 00 Cefazoli Propensi Active Itching Hives Metho di n ty to [address] st adverse 00:00: Hospita reaction 00 l s to drug Cefazoli Propensi Active Itching Hives UT n ty to 02-21 Health adverse 00:00: reaction 00 s No Known DA Active U [facility] Allergie 8 Loving s 00:00: Health 00 are [facility] No Known DA Active U [facility] Allergie 04-26 Loving s 00:00: Health 00 are [facility] Family History Family Member Diagnosis Comments [...] icians Factor 5 Leiden mutation, heterozygous Natural [facility] Natural mother Diabetes [facility] Natural [facility] Natural mother [facility] Social History Social Habit Start Date Stop Date Quantity Comments Source History SDOH [facility] Drinks History SDOH [facility] Exposure to 2022-05-01 2022-05-11 Not sure [facility] SARS-CoV-2 00:00:00 14:20:00 (event) Alcohol intake 2022-02-02 2022-02-02 Lifetime [facility] 00:00:[facility]:00:00 [facility]-drinker [facility] (finding) Tobacco use and 2021-02-21 2021-02-21 Smokeless tobacco [facility] exposure 00:00:00 00:00:00 non-user Hospital History SDOH 2021-02-21 2021-02-21 1 [facility] Alcohol Frequency 00:00:00 00:00:00 Hospita l Cigarette 2021-01-21 2021-01-21 [facility] pack-years 00:00:00 00:00:00 Sex [birth year] [facility] Smoking Status Start Date Stop Date Source Never smoked tobacco [facility] Medications Ordered Filled Start Stop Current Ordering Indication Dosage Frequency Signature Comments Components Source Medication Medication Date Date Medication? Clinician (SIG) Name Name escitalopra Yes [id number] 20mg QD Take 1 [facility] m (Lexapro) 9-19 tablet (20 He alth 20 MG 00:00: mg total) tablet 00 by mouth 1 (one) time each day. gabapentin Yes [id number] 200mg Q.5D Take 2 UT (Neurontin) 9-19 capsules Heal th 100 MG 00:00: (200 mg capsule 00 total) by mouth in the morning and 2 capsules (200 mg total) in the evening. clonazePAM Yes [id number] .5mg Q.5D Take 1 UT (KlonoPIN) 9-19 tablet Health 0.5 MG 00:00: (0.5 mg disintegrat 00 total) by ing tablet mouth in the morning and 1 tablet (0.5 mg total) in the evening. PLACE 1 TABLET ON TONGUE AND ALLOW TO DISSOLVE TWICE DAILY NEEDED. clonazePAM Yes [id number] 1mg Q.5D Take 1 UT (KlonoPIN) 9-19 tablet (1 Heal th 1 MG 00:00: mg total) disintegrat 00 by mouth ing tablet in the morning and 1 tablet (1 mg total) in the evening. DISSOLVE IN MOUTH TWICE A DAY. QUEtiapine 2021- Yes [id number] 25mg Q.5D Take 1 UT (SEROquel) 9-19 10-20 tablet (25 He alth 25 MG 00:00: 04:59 mg total) tablet 00 :00 by mouth 2 (two) times a day if needed (anxiety). allopurinol Yes UT (Zyloprim) 05-11 Health 100 MG 14:28: tablet 29 allopurinol Yes UT (Zyloprim) 05-11 Health 100 MG 14:28: tablet 29 DULoxetine 2022- No [id number] 30mg Take 1 UT (Cymbalta) 05-11-19 capsule Healt [facility] [address] 00:00: 05:59 (30 mg capsule 00 :00 total) by mouth every night. Do not crush or chew. allopurinol Yes UT (Zyloprim) -18 Health 100 MG 14:55: tablet allopurinol Yes UT (Zyloprim) 7-18 Health 100 MG 14:55: tablet allopurinol Yes UT (Zyloprim) 04-06 Health 100 MG 14:55: tablet 22 midodrine 2021- No TAKE 1 UT (Proamatine 04-06-18 TABLET 2 Hea lth ) 5 MG 14:55: 00:00 TIMES tablet 22 :00 DAILY. gabapentin 2021- No [id number] TAKE 1 UT (Neurontin) 03-27-18 CAPSULE IN H ealth 100 MG 00:00: 00:00 THE capsule 00 :00 MORNING AND 2 CAPSULES IN THE EVENING midodrine Yes TAKE 1 UT (Proamatine 5-26 TABLET 2 th ) 5 MG 16:37: TIMES tablet 06 DAILY. midodrine Yes TAKE 1 UT (Proamatine 5-26 TABLET 2 Heal th ) 5 MG 16:37: TIMES tablet 06 DAILY. allopurinol Yes UT (Zyloprim) 5-26 Health 100 MG 16:36: tablet 02 allopurinol Yes UT (Zyloprim) 5-26 Health 100 MG 16:36: tablet 02 clonAZEPAM Yes .5mg Take 0.5 Met [facility] (KlonoPIN) 5-[address] 0.5 MG 18:01: mouth once Hospi ta tablet 01 as needed l for seizures. AM pantoprazol 2021- No 40mg QD Take 1 Met hodi e 5-19 06-19 tablet (40 st (PROTONIX) 00:00: 04:59 mg total) H ospita 40 MG EC 00 :00 by mouth l tablet daily for 30 days. clonAZEPAM 2021-0 Yes 1mg Take 1 mg [facility] (KlonoPIN) 5-[address] 1 MG tablet 18:01: once as Hos shae 06 needed for l anxiety. escitalopra 2021-0 Yes 20mg QD Take 20 mg [facility] m (LEXAPRO) 5-[address] 20 MG 18:01: daily. Hospita tablet 06 l gabapentin 2021-0 Yes 200mg Q.5D Take 200 [facility] (NEURONTIN) 5-[address] 100 mg 18:01: mouth 2 Hospita capsule 06 (two) l times a day. sevelamer 2021-0 Yes 1600mg Q.[id number] Take 1,600 [facility] (RENAGEL) 5-[id number] 800 MG 18:01: 3D mouth 3 Hospita tablet 06 (three) l times a day with meals. linaGLIPtin 2021-0 Yes 5mg QD Take 5 mg M ethodi (TRADJENTA) 5-[address] 5 mg tablet 18:01: daily with Hospita 06 breakfast. l levothyroxi 2021-0 Yes 200ug QD Take 200 M ethodi ne 5-[address] (SYNTHROID) 18:01: mouth Hospi ta 200 mcg 06 daily. l tablet midodrine 2021-0 2021- No 5mg Q.[id number] Take 1 [facility] (PROAMATINE 5-18 06-18 [id number] tablet (5 st ) 5 MG 00:00: 04:59 3D mg total) Hospi ta tablet 00 :00 by mouth 3 l (three) times a day for 30 days. clonazePAM 2021-0 Yes [id number] 1mg Q.5D Take 1 UT (KlonoPIN) 5-09 tablet (1 Heal th 1 MG 00:00: mg total) disintegrat 00 by mouth 2 ing tablet (two) times a day. DISSOLVE IN MOUTH TWICE A DAY clonazePAM 2021-0 Yes [id number] .5mg Q.5D Take 1 UT (KlonoPIN) 5-09 tablet Health 0.5 MG 00:00: (0.5 mg disintegrat 00 total) by ing tablet mouth 2 (two) times a day. PLACE 1 TABLET ON TONGUE AND ALLOW TO DISSOLVE TWICE DAILY NEEDED escitalopra 2022-0 Yes [id number] 20mg QD Take 1 UT m (Lexapro) 5-09 tablet (20 He alth 20 MG 00:00: mg total) tablet 00 by mouth 1 (one) time each day. gabapentin 2021-0 Yes [id number] 200mg Q.5D Take 2 UT (Neurontin) 5-09 capsules Heal th 100 MG 00:00: (200 mg capsule 00 total) by mouth 2 (two) times a day. clonazePAM 2-0 Yes [id number] 1mg Q.5D Take 1 UT (KlonoPIN) 5-09 tablet (1 Heal th 1 MG 00:00: mg total) disintegrat 00 by mouth 2 ing tablet (two) times a day. DISSOLVE IN MOUTH TWICE A DAY clonazePAM 2-0 Yes [id number] .5mg Q.5D Take 1 UT (KlonoPIN) 5-09 tablet Health 0.5 MG 00:00: (0.5 mg disintegrat 00 total) by ing tablet mouth 2 (two) times a day. PLACE 1 TABLET ON TONGUE AND ALLOW TO DISSOLVE TWICE DAILY NEEDED escitalopra 2-0 Yes [id number] 20mg QD Take 1 UT m (Lexapro) 5-09 tablet (20 He alth 20 MG 00:00: mg total) tablet 00 by mouth 1 (one) time each day. gabapentin 2-0 Yes [id number] 200mg Q.5D Take 2 UT (Neurontin) 5-09 capsules Heal th 100 MG 00:00: (200 mg capsule 00 total) by mouth 2 (two) times a day. clonazePAM 2-0 Yes [id number] 1mg Q.5D Take 1 UT (KlonoPIN) 5-09 tablet (1 Heal th 1 MG 00:00: mg total) disintegrat 00 by mouth 2 ing tablet (two) times a day. DISSOLVE IN MOUTH TWICE A DAY clonazePAM 2022-0 Yes [id number] .5mg Q.5D Take 1 UT (KlonoPIN) 5-09 tablet Health 0.5 MG 00:00: (0.5 mg disintegrat 00 total) by ing tablet mouth 2 (two) times a day. PLACE 1 TABLET ON TONGUE AND ALLOW TO DISSOLVE TWICE DAILY NEEDED escitalopra 2022-0 Yes [id number] 20mg QD Take 1 UT m (Lexapro) 5-09 tablet (20 He alth 20 MG 00:00: mg total) tablet 00 by mouth 1 (one) time each day. gabapentin 2021-0 Yes [id number] 200mg Q.5D Take 2 UT (Neurontin) 5-09 capsules Heal th 100 MG 00:00: (200 mg capsule 00 total) by mouth 2 (two) times a day. clonazePAM 2021-0 Yes [id number] 1mg Q.5D Take 1 UT (KlonoPIN) 5-09 tablet (1 Heal th 1 MG 00:00: mg total) disintegrat 00 by mouth 2 ing tablet (two) times a day. DISSOLVE IN MOUTH TWICE A DAY clonazePAM 2021-0 Yes [id number] .5mg Q.5D Take 1 UT (KlonoPIN) 5-09 tablet Health 0.5 MG 00:00: (0.5 mg disintegrat 00 total) by ing tablet mouth 2 (two) times a day. PLACE 1 TABLET ON TONGUE AND ALLOW TO DISSOLVE TWICE DAILY NEEDED escitalopra 2021-0 Yes [id number] 20mg QD Take 1 UT m (Lexapro) 5-09 tablet (20 He alth 20 MG 00:00: mg total) tablet 00 by mouth 1 (one) time each day. gabapentin 2021-0 Yes [id number] 200mg Q.5D Take 2 UT (Neurontin) 5-09 capsules Heal th 100 MG 00:00: (200 mg capsule 00 total) by mouth 2 (two) times a day. clonazePAM 2-0 Yes [id number] 1mg Q.5D Take 1 UT (KlonoPIN) 5-09 tablet (1 Heal th 1 MG 00:00: mg total) disintegrat 00 by mouth 2 ing tablet (two) times a day. DISSOLVE IN MOUTH TWICE A DAY clonazePAM 2022-0 Yes [id number] .5mg Q.5D Take 1 UT (KlonoPIN) 5-09 tablet Health 0.5 MG 00:00: (0.5 mg disintegrat 00 total) by ing tablet mouth 2 (two) times a day. PLACE 1 TABLET ON TONGUE AND ALLOW TO DISSOLVE TWICE DAILY NEEDED escitalopra 2022-0 Yes [id number] 20mg QD Take 1 UT m (Lexapro) 5-09 tablet (20 He alth 20 MG 00:00: mg total) tablet 00 by mouth 1 (one) time each day. gabapentin 2022-0 Yes [id number] 200mg Q.5D Take 2 UT (Neurontin) 5-09 capsules Heal th 100 MG 00:00: (200 mg capsule 00 total) by mouth 2 (two) times a day. clonazePAM 2022-0 Yes [id number] 1mg Q.5D Take 1 UT (KlonoPIN) 5-09 tablet (1 Heal th 1 MG 00:00: mg total) disintegrat 00 by mouth 2 ing tablet (two) times a day. DISSOLVE IN MOUTH TWICE A DAY clonazePAM 2-0 Yes [id number] .5mg Q.5D Take 1 UT (KlonoPIN) 5-09 tablet Health 0.5 MG 00:00: (0.5 mg disintegrat 00 total) by ing tablet mouth 2 (two) times a day. PLACE 1 TABLET ON TONGUE AND ALLOW TO DISSOLVE TWICE DAILY NEEDED escitalopra 2021-0 Yes [id number] 20mg QD Take 1 UT m (Lexapro) 5-09 tablet (20 He alth 20 MG 00:00: mg total) tablet 00 by mouth 1 (one) time each day. gabapentin 2021-0 Yes [id number] 200mg Q.5D Take 2 UT (Neurontin) 5-09 capsules Heal th 100 MG 00:00: (200 mg capsule 00 total) by mouth 2 (two) times a day. levothyroxi 2022-0 Yes 200ug QD Take 200 U T ne 5-02 mcg by Health (Synthroid, 00:00: mouth 1 Levoxyl) 00 (one) time 200 MCG each day. tablet levothyroxi 2-0 Yes 200ug QD Take 200 U T [...] 00 (one) time each day. droxidopa 2022-0 2023- No 100mg Q.[id number] Take 1 [facility] (NORTHERA) 4-14 04-[id number] 100 mg 00:00: 04:59 3D (100 mg Hospita capsule 00 :00 total) by l capsule mouth 3 (three) times a day for 360 days. levothyroxi 2022-0 Yes 50ug QD Take 1 Meth kaylee ne 1-13 tablet (50 st (SYNTHROID) 00:00: mcg total) Hospita 50 mcg 00 by mouth l tablet every morning. levothyroxi 2021- No [id number] 200ug QD Take 1 [facility] ne 1-04 01-[address] (SYNTHROID) 00:00: 00:00 (200 mcg H ospita 200 mcg 00 :00 total) by l tablet mouth daily. levothyroxi 2020-09 Yes UT ne 1-08 Health [...] 00 (one) time MCG tablet each day. pantoprazol 2020-09 No 40mg Take 40 mg [facility] e -08 05-[address] (PROTONIX) 00:00: 00:00 as needed. Hospita 40 MG EC 00 :00 l tablet levothyroxi 2020-09- No 50ug QD Take 50 [facility] ne 1-08 01-[address] (SYNTHROID) 00:00: 00:00 mouth Hosp teresa 50 mcg 00 :00 every l tablet morning. clonAZEPAM 2020-09 Yes 1mg Q.5D Take 1 [...] times a day. sevelamer 2020-09 Yes 1600mg Q.[id number] Take 1,600 [facility] (RENAGEL) 0-[id number] 800 MG 16:07: 3D mouth 3 Hospita tablet 35 (three) l times a day with meals. linaGLIPtin 2020-09 Yes 5mg QD Take 5 mg M ethodi (TRADJENTA) 0-[address] 5 mg tablet 16:07: daily with Hospita 35 breakfast. l Eliquis 5 2020-09 Yes 5mg Q.5D Take 5 mg Met [facility] mg tablet 0-[address] 00:00: (two) Hospita 00 times a l day. Eliquis 5 2020-09 Yes [facility] mg tablet 0-18 st 00:00: Hospita 00 l gabapentin 2020-09 Yes [id number] Take 200 UT (Neurontin) 0-05 mg po bid Hea lth 100 MG 00:00: capsule 00 gabapentin 2020-09 Yes [id number] Take 200 UT (Neurontin) 0-05 mg po bid Hea lth 100 MG 00:00: capsule 00 gabapentin 2020-09- No [id number] Take 200 UT (Neurontin) 0-05 07-18 mg po bid He alth 100 MG 00:00: 00:00 capsule 00 :00 enoxaparin Yes 100mg Q24H Inject 1 [facility] (Lovenox) 7-12 mL ([address] 100 mg/mL 00:00: total) Hospit a syringe 00 under the l skin daily. levothyroxi 2021- No [id number] 200ug QD Take 1 [facility] ne 03-31-[address] (SYNTHROID) 00:00: 04:59 (200 mcg H ospita 200 mcg 00 :00 total) by l tablet mouth daily. levothyroxi 2021- No [id number] 200ug QD Take 1 [facility] ne 03-31 01-[address] (SYNTHROID) 00:00: 00:00 (200 mcg H ospita 200 mcg 00 :00 total) by l tablet mouth daily. gabapentin Yes [id number] TAKE 1 U T (Neurontin) 6-14 CAPSULE IN He alth 100 MG 00:00: THE capsule 00 MORNING AND 2 CAPSULES IN THE EVENING. gabapentin Yes [id number] TAKE 1 U T (Neurontin) 6-14 CAPSULE IN He alth 100 MG 00:00: THE capsule 00 MORNING AND 2 CAPSULES IN THE EVENING. gabapentin Yes [id number] TAKE 1 U T (Neurontin) 6-14 CAPSULE IN He alth 100 MG 00:00: THE capsule 00 MORNING AND 2 CAPSULES IN THE EVENING. gabapentin Yes [id number] TAKE 1 U T (Neurontin) 6-14 CAPSULE IN He alth 100 MG 00:00: THE capsule 00 MORNING AND 2 CAPSULES IN THE EVENING. levothyroxi 2020- No 200ug QD Take 1 [facility] ne 03-[address] (SYNTHROID) 00:00: 00:00 (200 mcg [...] 2020- No 1.25ug Take 1.25 [facility] (ROCALTROL) 02-28-[address] 0.25 MCG 23:50: 00:00 [...] ic Anticoagul ation. midodrine 2020- No 10mg Q.[id number] Take 1 [facility] (PROAMATINE 02-28 [id number] tablet (10 st ) 10 MG 00:00: [...] or fever (pain level 4-6). clonazePAM Yes [id number] TAKE 1 UT (KlonoPIN) 6-03 TABLET Health 1 MG 00:00: DISSOLVE disintegrat 00 IN MOUTH ing tablet TWICE A DAY clonazePAM Yes [id number] TAKE 1 UT (KlonoPIN) 6-03 TABLET Health 1 MG 00:00: DISSOLVE disintegrat 00 IN MOUTH ing tablet TWICE A DAY clonazePAM Yes [id number] TAKE 1 UT (KlonoPIN) 6-03 TABLET Health 1 MG 00:00: DISSOLVE disintegrat 00 IN MOUTH ing tablet TWICE A DAY clonazePAM Yes [id number] TAKE 1 UT (KlonoPIN) 6-03 TABLET Health [...] Renvela 800 Renvela 800 2019- Yes REYES QUINTERO 1 Q0.3333D TAKE 1 UT MG Oral MG Oral 1-03 M.D. TABLET 3 Physi ci Tablet Tablet 00:00: TIMES ans 00 DAILY Calcitriol Calcitriol 2019-09 Yes REYES LANTIGUALO Take 1 tab UT 0.5 MCG 0.5 MCG 1-03 M.D. daily as Physi ci Oral Oral 00:00: directed. ans Capsule Capsule 00 Tums E-X Tums E-X 2019-09 Yes REYES LANTIGUALO TAKE 3 UT 750 CHEW 750 CHEW [...] TIMES 800 MG 00 DAILY tablet calcium 2020- Yes TAKE 3 UT carbonate 1-03 TABS TWICE Heal th EX (Tums 00:00: DAILY WITH E-X) 750 MG 00 MEALS chewable tablet calcitriol 2019- Yes Take 1 tab U T (Rocaltrol) [...] 0.5 MCG 00:00: directed. capsule 00 calcium 2019- Yes TAKE 3 UT carbonate 1-03 TABS [...] TIMES 800 MG 00 DAILY tablet calcium 2019- Yes TAKE 3 UT carbonate 1-03 TABS TWICE Heal th EX (Tums 00:00: DAILY WITH E-X) 750 MG 00 MEALS chewable tablet calcitriol 2019- Yes Take 1 tab U T (Rocaltrol) [...] 750 MG 00 MEALS chewable tablet calcitriol 2019- Yes Take 1 tab U T (Rocaltrol) 1-03 daily as Heal th 0.5 MCG 00:00: directed. capsule 00 calcium 2019-09- No TAKE 3 UT carbonate 1-03 07-20 TABS TWICE Hea lth EX (Tums 00:00: 00:00 DAILY WITH E-X) 750 MG 00 :00 MEALS chewable tablet clonazePAM clonazePAM 2019-0 Yes RIZWAN TAKE 1 UT 1 MG Oral 1 MG Oral 8-03 HAFLIGER TABLET Physici Tablet Tablet 00:00: M.D. DISSOLVE ans Disintegrat Disintegrat 00 IN MOUTH ing ing TWICE A DAY Tradjenta 5 Tradjenta 5 2020-0 Yes REYES CILLO TAKE 1 UT MG Oral MG Oral 6-16 M.D. TABLET BY Phys ici Tablet Tablet 00:00: MOUTH ans 00 EVERY DAY linaGLIPtin 2020-0 Yes TAKE [...] TAKE 1 UT (Tradjenta) 6-16 TABLET BY a lth 5 MG tablet 00:00: MOUTH 00 EVERY DAY linaGLIPtin 2020-0 Yes TAKE 1 UT (Tradjenta) 6-16 TABLET BY a lth 5 MG tablet 00:00: MOUTH 00 EVERY DAY linaGLIPtin 2020-0 Yes TAKE 1 UT (Tradjenta) 6-16 TABLET BY a lth 5 MG tablet 00:00: MOUTH 00 EVERY DAY linaGLIPtin 2020-0 Yes TAKE 1 UT (Tradjenta) 6-16 TABLET BY a lth 5 MG tablet 00:00: MOUTH 00 EVERY DAY linaGLIPtin 2020-0 Yes TAKE 1 UT (Tradjenta) 6-16 TABLET BY a lth 5 MG tablet 00:00: MOUTH 00 [...] DAILY. tablet 00 Tramadol Tramadol 2017-09 Yes Davi 1 tablet Common HCl HCl 0-09 Stearns as needed Spirit 00:00: - [facility] 00 [facility] Eliquis 5 Eliquis 5 Yes MARLYS Take 1 UT MG Oral MG Oral 9-28 EMELI tablet by P hysici Tablet Tablet 00:00: [...] APPOINTMEN T FOR ADDITIONAL REFILLS allopurinoL Yes 100mg QD Take 100 M ethodi (ZYLOPRIM) 7-[address] 100 MG 00:00: mouth Hospita tablet 00 daily. l allopurinoL Yes Take by Met hodi (ZYLOPRIM) 7-[address] 100 MG 00:00: Hospita tablet 00 l Levothyroxi Levothyroxi Yes HUMBLE QD TAKE 1 UT ne Sodium ne Sodium 6-11 TAMAR TABLET BY Physic 150 MCG 150 MCG 00:00: M.D. MOUTH ans Oral Tablet Oral Tablet 00 EVERY DAY. CALL OFFICE, NEEDS VISIT. levothyroxi 2014- Yes TAKE 1 UT ne 6-11 TABLET BY [facility] (Synthroid, 00:00: MOUTH Levoxyl) 00 EVERY DAY. 150 MCG CALL tablet OFFICE, NEEDS VISIT. levothyroxi 2014- Yes TAKE 1 UT ne 6-11 TABLET BY Health (Synthroid, 00:00: MOUTH Levoxyl) 00 EVERY DAY. 150 MCG CALL tablet OFFICE, NEEDS VISIT. levothyroxi 2014-0 Yes TAKE 1 UT ne 6-11 TABLET BY [facility] (Synthroid, 00:00: MOUTH Levoxyl) 00 EVERY DAY. 150 MCG CALL tablet OFFICE, NEEDS VISIT. levothyroxi 2014- Yes TAKE 1 UT ne 6-11 TABLET BY [facility] (Synthroid, 00:00: MOUTH Levoxyl) 00 [...] MCG CALL tablet OFFICE, NEEDS VISIT. levothyroxi 2014-2021- No TAKE 1 UT ne 6-11 07-20 TABLET BY Health (Synthroid, 00:00: 00:00 MOUTH Levoxyl) 00 :00 [...] Status Comments Sour ce Name Immunization Name [employer] 2020-11-21 Completed [facility] COVID-[facility] Vacc [...] Comments Source Systolic blood 2022-05-11 76 mm[Hg] [facility] pressure 19:28:00 Diastolic blood 2022-05-11 53 mm[Hg] [facility] pressure 19:28:00 Heart rate 2022-05-11 104 /min [facility] 19:28:00 Respiratory rate 2022-05-11 16 /min [facility] 19:28:00 Body height 2022-05-11 152.4 cm [facility] 19:28:00 Body weight 2022-05-11 73.029 kg [facility] 19:28:00 BMI 2022-05-11 31.44 kg/m2 [facility] 19:28:00 Oxygen saturation 2022-05-11 100 /min [facility] in Arterial blood 19:28:00 by Pulse oximetry Systolic blood 2022-04-08 83 mm[Hg] [facility] pressure 20:33:00 Diastolic blood 2022-04-08 54 mm[Hg] [facility] pressure 20:33:00 Heart rate 2022-04-08 76 [...] Health 19:56:00 Oxygen saturation 2022-04-06 99 /min [facility] in Arterial blood 19:56:00 by Pulse oximetry Systolic blood 2022-02-12 78 mm[Hg] [facility] pressure 21:38:00 Diastolic blood 2022-02-12 50 mm[Hg] [facility] pressure 21:38:00 Heart rate 2022-02-12 76 /min [facility] 21:38:00 Body temperature 2022-02-12 37 Jennifer [facility] 21:38:00 Respiratory rate 2022-02-12 14 /min [facility] 21:38:00 Body height 2022-02-12 152.4 cm [facility] 21:38:00 Body weight 2022-02-12 76.318 kg [facility] 21:38:00 BMI 2022-02-12 32.86 kg/m2 [facility] 21:38:00 Systolic blood 2022-02-04 82 mm[Hg] [facility] pressure 16:08: Hospital Diastolic blood 2022-02-04 49 mm[Hg] [facility] pressure 16:08: Hospital Heart rate 2022-02-04 63 /min [facility] 16:08:01 Hospital Body temperature 2022-02-04 36.5 Jennifer [facility] 16:08:01 Hospital Respiratory rate 2022-02-04 18 /min [facility] 16:08:01 Hospital Oxygen saturation 2022-02-04 95 /min [facility] in Arterial blood 16:08: Hospital by Pulse oximetry Body weight 2022-02-04 73.755 kg [facility] 09:18:47 Hospital BMI 2022-02-04 31.76 kg/m2 [facility] 09:18:47 Hospital Body height 2022-01-28 152.4 cm [facility] 01:28:04 Hospital Systolic blood 2021-07-09 72 mm[Hg] [facility] pressure 16:24: Hospital Diastolic blood 2021-07-09 44 mm[Hg] [facility] pressure 16:24: Hospital Heart rate 2021-07-09 34 /min [facility] 16:24: Hospital Body temperature 2021-07-09 36.44 Jennifer [facility] 16:24: Hospital Body height 2021-07-09 152.4 cm [facility] 16:24: Hospital Body weight 2021-07-09 85.7 kg [facility] 16:24: Hospital BMI 2021-07-09 36.90 kg/m2 [facility] 16:24: Hospital Oxygen saturation 2021-07-09 96 /min [facility] in Arterial blood 16:24: Hospital by Pulse oximetry Respiratory rate 2021-02-28 18 /min [facility] 20:45:00 Hospital Systolic blood 2021-01-16 84 mm[Hg] Location: RUE; [place] [facility] pressure 16:27:00 Position: Sitting Diastolic blood 2021-01-16 52 mm[Hg] Location: E; [place] [facility] pressure 16:27:00 Position: Sitting Body [...] Diastolic blood 2020-12-26 50 mm[Hg] [facility]: RUE; [place] [facility] pressure 16:02:00 Position: Sitting Body height 2020-12-26 60 [in_us] [facility] 16:02:00 Weight 2020-12-26 206 [lb_av] [facility] 16:02:00 Body mass index 2020-12-26 40.23 kg/m2 [facility] (BMI) [Ratio] 16:02:00 Body temperature 2020-12-26 97 [degF] Method: [facility] 16:02:00 Temporal Heart Rate 2020-12-26 81 /min Location: R [facility] 16:02:00 Brachial Artery; Systolic blood 2020-11-19 98 mm[Hg] Location: RUE; [place] [facility] pressure 11:16:00 Position: Sitting Diastolic blood 2020-11-19 65 mm[Hg] Location: RUE; [place] [facility] pressure 11:16:00 Position: Sitting Body [...] BP Systolic 2019-07-17 106 mm[Hg] [facility] L[facility]; [facility] 13:47:00 Position: Sitting BP Diastolic 2019-07-17 72 mm[Hg] [facility]; [facility] 13:47:00 Position: Sitting Height 2019-07-17 60 [in_us] [facility] 13:47:00 Weight 2019-07-17 212 [lb_av] [facility] 13:47:00 Body Mass Index 2019-07-17 41.4 kg/m2 [facility] Calculated 13:47:00 Temperature 2019-07-17 97.7 [degF] Method: Oral [facility] 13:47:00 Heart Rate 2019-07-17 104 /min [facility] 13:47:00 BP Systolic 2017-12-06 101 mm[Hg] Location: R[facility]; [facility] 11:04:00 Position: Sitting BP Diastolic 2017-12-06 66 mm[Hg] Location: R[facility]; [facility] 11:04:00 Position: Sitting Height 2017-12-06 62 [in_us] [facility] 11:04:00 Weight 2017-12-06 210.25 [lb_av] [facility] 11[facility]04:00 Body Mass Index 2017-12-06 38.46 kg/m2 [facility] Calculated 11:04:00 Temperature 2017-12-06 97.7 [degF] Method: Oral [facility] 11:04:00 Heart Rate 2017-12-06 97 /min Location: R [facility] 11:04:00 Brachial Artery; Quality: Normal Respiration Rate 2017-12-06 18 /min Quality: Normal [facility] 11:04:00 Procedures Procedure Date / Time Performing Source Performed Clinician [id number] 2022-07-10 [facility] 00:00:00 Rehabilitation P earland ECG 12-LEAD 2022-04-06 Kandace Santos [facility] 20:02:00 POC GLUCOSE 2022-02-04 [facility] Hospit al 17:56:00 Alex POC GLUCOSE 2022-02-04 [facility] Hospit al 13:24:00 Alex CBC WITH PLATELET AND 2022-02-04 [facility] DIFFERENTIAL 10:03:00 Alex B NATRIURETIC PEPTIDE 2022-02-04 [facility] 10:03:00 Gillian BASIC METABOLIC PANEL 2022-02-04 [facility] 10:03:00 Gillian ESTIMATED GFR 2022-02-04 [facility] Hospit al 10:03:[address] ABDOMEN WWO CONTRAST 2022-02-03 [facility] 18:59:50 J POC GLUCOSE 2022-02-03 Rowan, Bahman [facility] al 17:45:00 Johnson ULTRAFILTRATION 2022-02-03 Juventino Girard [facility] Hospit al 14:29:20 POC GLUCOSE 2022-02-03 Rowan, Bahman [facility] Hospit al 14:25:00 Johnson COMPREHENSIVE METABOLIC 2022-02-03 [facility] Hospital PANEL 10:08:00 LACTIC ACID LEVEL 2022-02-03 [facility] Hosp ital 10:08:00 CBC WITH PLATELET AND 2022-02-03 [facility] [place] 10:08:00 Alex ESTIMATED GFR 2022-02-03 Ama Garcia [facility] Hospit al 10:08:00 POC GLUCOSE 2022-02-03 Rowan, Bahman [facility] al 02:31:00 Johnson POC GLUCOSE 2022-02-03 Rowan, Bahman [facility] al 01:12:00 Johnson POC GLUCOSE 2022-02-02 Rowan, Bahman [facility] al 17:23:00 Johnson POC GLUCOSE 2022-02-02 Rowan, Bahman [facility] al 12:28:00 Johnson HEMODIALYSIS 2022-02-02 Juventino Girard [facility] Hospit al 11:46:20 CBC WITH PLATELET AND 2022-02-[address] [facility] DIFFERENTIAL 10:15:00 Higinio COMPREHENSIVE METABOLIC 2022-02-02 [facility] Hospital PANEL 10:15:00 LACTIC ACID LEVEL 2022-02-02 [facility]osp ital 10:15:00 ESTIMATED GFR 2022-02-02 Ama Garcia [facility] Hospit al 10:15:00 POC GLUCOSE 2022-02-02 Rowan, Bahman [facility] al 02:46:00 Johnson POC GLUCOSE 2022-02-01 Rowan, Bahman [facility] al 22:25:00 Johnson POC GLUCOSE 2022-02-01 Rowan, Bahman [facility] al 17:44:00 Alex XR HANDS 3 VW BILATERAL 2022-02-01 Cathleen Pool [facility] 14:17:05 POC GLUCOSE 2022-02-01 Bahman Penny [facility] Hospit al 12:35:00 Alex CBC WITH PLATELET AND 2022-02-01 [facility] DIFFERENTIAL 12:21:00 Vincent COMPREHENSIVE METABOLIC 2022-02-01 [facility] PANEL 12:21:00 LACTIC ACID LEVEL 2022-02-01 [facility] Hosp ital 12:21:00 ESTIMATED GFR 2022-02-01 RadhaAma Tana [facility] Hospit al 12:21:00 POC GLUCOSE 2022-02-01 Dale Pennyoj [facility] Hospit al 02:26:00 Alex POC GLUCOSE 2022-01-31 Rowan, Bahman [facility] al 23:15:00 Alex POC GLUCOSE 2022-01-31 Rowan, Bahman [facility] al 21:29:00 Alex POC GLUCOSE 2022-01-31 Rowan, Bahman [facility] al 13:50:00 Johnson ULTRAFILTRATION 2022-01-31 Juventino Girard [facility] al 12:04:48 CBC WITH PLATELET AND 2022-01-31 [facility] DIFFERENTIAL 07:46:00 Fontana BASIC METABOLIC PANEL 2022-01-31 [facility] 07:46:00 Vincent MAGNESIUM LEVEL 2022-01-31 [facility] Vincent FOLATE LEVEL 2022-01-31 Cathleen Pool [facility] 07:46:00 VITAMIN B12 LEVEL 2022-01-31 Cathleen Pool [facility] 07:46:00 VITAMIN C LEVEL, PLASMA 2022-01-31 Cathleen Pool [facility] 07:46:00 ESTIMATED GFR 2022-01-31 [facility] Hospit al 07:46:00 Vincent POC GLUCOSE 2022-01-31 Bahman Penny [facility] Hospit al 02:40:00 Alex RHEUMATOID FACTOR 2022-01-30 Cathleen Pool Ho spital 23:12:00 POC GLUCOSE 2022-01-30 Bahman Penny [facility] Hospit al 23:06:00 Alex POC GLUCOSE 2022-01-30 Bahman Penny [facility] Hospit al 19:13:00 Alex SIX MINUTE WALK W/ PULSE 2022-01-30 Bahman Penny [facility] OXIMETRY 15:34:42 Alex POC GLUCOSE 2022-01-30 Bahman Penny [facility] al 12:50:00 Alex HEMODIALYSIS 2022-01-30 Juventino Girard [facility] Hospit al 10:44:33 COMPREHENSIVE METABOLIC 2022-01-30 [facility] PANEL 08:46:00 CBC HEMOGRAM 2022-01-30 [facility] Hospit al 08:46:00 ESTIMATED GFR 2022-01-30 [facility] Hospit al 08:46:00 POC GLUCOSE 2022-01-30 Bahman Penny [facility] al 02:41:00 Alex US RENAL 2022-01-29 [facility] Hospit al 22:54:56 POC GLUCOSE 2022-01-29 Bahman Penny [facility] al 21:50:00 Alex PV TRANSCRANIAL DOPPLER 2022-01-29 [facility] INTRACRANIAL ARTERIES 20:40:[address] CHEST WO CONTRAST 2022-01-29 [facility] ABDOMEN WO CONTRAST 18:14:[address] HEAD WO CONTRAST 2022-01-29 [facility] 18:14:31 POC GLUCOSE 2022-01-29 Bahman Penny [facility] 17:04:00 Alex TYPE AND SCREEN 2022-01-29 Bahman Penny [facility] al 15:57:00 Alex SINGLE ANTIGEN BEADS 2022-01-29 [facility] 15:49:00 ABO AND RH CONFIRMATION 2022-01-29 [facility] BY PROTOCOL 15:40:00 Alex POC GLUCOSE 2022-01-29 Hilario, Imad [facility] al 13:15:00 VITAMIN D 25 HYDROXY 2022-01-29 Vicki Johnson H ospital LEVEL 09:56:00 Joe SANCHEZCOVID-19 ANTI-SPIKE IGG 2022-01-29 Kandace Baca [facility] ANTIBODY TITER 09:55:00 Cirilo COMPREHENSIVE METABOLIC 2022-01-29 [facility] 09:55:00 CBC HEMOGRAM 2022-01-29 Corrie Musa [facility] Hospit al 09:55:00 ZZCOVID-19 SEROLOGY 2022-01-29 Kandace Baca spital PATIENT SURVEILLANCE 09:55:00 Cirilo ESTIMATED GFR 2022-01-29 Corrie Musa Hospit al 09:55:00 POC GLUCOSE 2022-01-29 Hilario, Imad [facility] 03:21:00 POC GLUCOSE 2022-01-28 Hilario, Imad [facility] al 22:44:00 HEPATITIS B SURFACE 2022-01-28 Juventino Girard Ho spital ANTIGEN 19:35:00 POC GLUCOSE 2022-01-28 Hilario, Imad [facility] Hospit al 16:25:00 TOTAL IRON BINDING 2022-01-28 Sukh Whelan Hos pital CAPACITY 14:06:00 Vincent FERRITIN LEVEL 2022-01-28 Sukh Whelan Hospit al 14:06:00 Vincent POC GLUCOSE 2022-01-28 Hilario, Imad [facility] al 13:02:00 HEMODIALYSIS 2022-01-28 Juventino Girard Hospit al 11:47:06 COMPREHENSIVE METABOLIC 2022-01-28 Corrie Musa Hospital PANEL 10:15:00 CBC HEMOGRAM 2022-01-28 Corrie Musa Hospit al 10:15:00 T4, FREE 2022-01-28 Adilia Ruelas Hospit al 10:15:00 THYROID STIMULATING 2022-01-28 Adilia Ruelas Ho spital HORMONE 10:15:00 ESTIMATED GFR 2022-01-28 Corrie Musa Hospit al 10:15:00 ECG 12-LEAD 2022-01-27 Dolores Musaen [facility] Hospit al 22:52:03 XR CHEST 1 VW PORTABLE 2022-01-27 Ikercourt Michelle [facility] 22:29:23 POC GLUCOSE 2022-01-27 Hilario, Imad [facility] 21:39:00 CV RIGHT HEART CATH 2022-01-27 [facility] 21:06:13 Sharma CV NON TUNNELED CATHETER 2022-01-27 [facility] INSERTION 21:06:13 Sharma ESTIMATED GFR 2022-01-27 Hilario, Imad [facility] 18:36:00 POC PANEL 2022-01-27 [facility], ad [facility] Hospit al 18:36:00 POC GLUCOSE 2022-01-27 [facility], Imad [facility] al 18:15:00 SPIROMETRY, DIFFUSION, 2022-01-27 Gabriela Thao [facility] LUNG VOLUMES, MIPS/MEPS 16:27:56 TTE COMPLETE, WO 2022-01-27 [facility] antony CONTRAST, W DOPPLER 15:56:00 ([id number]) PV PHYSIOLOGIC ARTERIAL 2022-01-27 [facility] LOWER EXTREMITY COMPLETE 14:45:00 US CAROTID DUPLEX 2022-01-27 [facility] ital BILATERAL 13:45:21 BASIC METABOLIC PANEL 2021-12-29 [facility] 21:07:00 HEPATIC FUNCTION PANEL 2021-12-29 [facility] 21:07:00 HEMOGLOBIN A1C 2021-12-29 [facility] 21:07:00 LIPID PANEL 2021-12-29 [facility] 21:07:00 PROTHROMBIN TIME WITH INR 2021-12-29 [facility] 21:07:00 PARTIAL THROMBOPLASTIN 2021-12-29 [facility] TIME (PTT) 21:07:00 THYROID STIMULATING 2021-12-29 [facility] Ho spital HORMONE 21:07:00 T3 2021-12-29 [facility] 21:07:00 T4 2021-12-29 [facility] 21:07:00 T4, FREE 2021-12-29 [place], [facility] Hospit al 21:07:00 SYPHILIS TREPONEMA SCREEN 2021-12-29 [facility] WITH RPR CONFIRMATION 21:07:00 (REVERSE ALGORITHM) PREALBUMIN LEVEL 2021-12-29 [place], [facility] Hospi antony 21:07:00 CBC WITH PLATELET AND 2021-12-29 [facility] DIFFERENTIAL 21:07:00 MAGNESIUM LEVEL 2021-12-29 Osceola, [facility] Hospit al 21:07:00 PHOSPHORUS LEVEL 2021-12-29 [place] 21:07:00 URIC ACID LEVEL 2021-12-29 [place] 21:07:00 LDH 2021-12-29 [place], [facility] Hospit al 21:07:00 TB T-SPOT 2021-12-29 [facility] Hospit al 21:07:00 FERRITIN LEVEL 2021-12-29 [facility] 21:07:00 DRUG AYALA 9, SER/LAUREN, SCRN 2021-12-29 [facility] W/RFLX TO CONF 21:07:00 MAX-CHAMBERS VIRUS 2021-12-29 [facility] ANTIBODY TEST 21:07:00 MAX CHAMBERS VIRUS (EBV) 2021-12-29 [facility] BY PCR 21:07:00 HIV 1/2 ANTIGEN/ANTIBODY, 2021-12-29 [facility] FOURTH GENERATION, WITH 21:07:00 REFLEXES HEPATITIS ACUTE PANEL 2021-12-29 [facility] 21:07:00 HEPATITIS B SURFACE 2021-12-29 [facility] Ho spital ANTIBODY 21:07:00 HEPATITIS B CORE ANTIBODY 2021-12-29 [facility] 21:07:00 HEPATITIS A ANTIBODY 2021-12-29 [facility] ospital TOTAL 21:07:00 CYTOMEGALOVIRUS AB, IGG 2021-12-29 [facility] 21:07:00 CYTOMEGALOVIRUS AB, IGM 2021-12-29 [facility] 21:07:00 TOXOPLASMA GONDII 2021-12-29 [facility]osp ital ANTIBODY, IGG 21:07:00 TOXOPLASMA IGM AB 2021-12-29 [facility] ital 21:07:00 B NATRIURETIC PEPTIDE 2021-12-29 [facility] 21:07:00 ESTIMATED GFR 2021-12-29 [facility] 21:07:00 CY AND CY 2021-12-29 [facility] ital 21:07:00 HLA TYPING 2021-12-29 [facility] 21:07:00 SINGLE ANTIGEN BEADS 2021-12-29 [facility] ospital 21:07:00 C1Q CLASS 1 & 2 ANTIBODY 2021-12-29 [facility] 21:07:00 OPIATES, S/P, QUANT 2021-12-29 Peng Nance [facility] 21:07:00 ECG 12-LEAD 2021-12-29 [facility] 20[facility]11 ECG 12-LEAD 2021-11-19 [facility] 20:49:50 Bao TTE COMPLETE, W CONTRAST, 2021-10-29 Allan Waller [facility] W DOPPLER ([id number]) 22:36:26 Bao ECG 12-LEAD 2021-10-29 Allan Waller Hos [facility]ital 22:21:53 Bao HC CTA HRT COR ART/BYPASS 2021-10-07 Elvira Moreira Met [facility] W/3D IM 18:49:21 [id number] 2021-07-21 [facility] 00:00:00 Rehabilitation P ear[facility] [id number] 2021-07-21 [facility] 00:00:00 Rehabilitation P ear[facility] [id number] 2021-07-21 [facility] 00:00:00 Rehabilitation P [facility] [id number] 2021-07-18 HOTA [facility] 00:00:00 Medical Center [id number] 2021-07-16 HOTA [facility] 00:00:00 Medical Center [id number] 2021-07-14 HOTA [facility] 00:00:00 Medical Center [id number] 2021-07-12 DORAI [facility] 00:00:00 Medical Center [id number] 2021-07-12 DORAI [facility] 00:00:00 Medical Center [id number] 2021-07-11 MALRE [facility] 00:00:00 Medical Center [id number] 2021-07-11 HOTA [facility] 00:00:00 Medical Center [id number] 2021-07-10 HOTA [facility] 00:00:00 Medical Center [id number] 2021-07-09 [email or web address] [facility] 00:00:00 Medical Center [id number] 2021-07-09 [email or web address] [facility] thcare 00:00:00 Medical Center [id number] 2021-07-09 [email or web address] [facility] thcare 00:00:00 Medical Center [id number] 2021-07-09 [email or web address] [facility] thcare 00:00:00 Medical Center [id number] 2021-07-09 WILJA.[email or web address] [facility] thcare 00:00:00 Medical Center T3 2021-03-11 Morena Sun [facility] spital 15:31:00 T4, FREE 2021-03-11 [facility] Sun [facility] 15:31:00 THYROID STIMULATING 2021-03-11 Morena Sun [facility] HORMONE 15:31:00 T4, FREE 2021-03-08 [facility] 16:02:00 TSH 2021-03-08 [facility] 16:02:00 HEMODIALYSIS 2021-02-28 [facility]ard Hospit al 16:45:06 POC GLUCOSE 2021-02-28 Juventino Girard [facility] 16:22:00 POC GLUCOSE 2021-02-28 PavelJuventino arreola [facility] 13:19:00 T4, FREE 2021-02-28 [facility] 09:17:00 T3 2021-02-28 [facility] 09:17:00 POC GLUCOSE 2021-02-28 PavelJuventino arreola [facility] 02:30:00 POC GLUCOSE 2021-02-27 PavelJuventino arreola [facility] 23:07:00 POC GLUCOSE 2021-02-27 PavelJuventino arreola [facility] 16:25:00 POC GLUCOSE 2021-02-27 PavelJuventino arreola [facility] 13:40:00 THYROID STIMULATING 2021-02-27 [facility] HORMONE 09:12:00 T4, FREE 2021-02-27 [facility] 09:12:00 T3 2021-02-27 Morena Sunist Ho spital 09:12:00 POC GLUCOSE 2021-02-27 PavelJuventino arreola [facility] 02:32:00 POC GLUCOSE 2021-02-27 PavelJuventino arreola [facility] 01:11:00 POC GLUCOSE 2021-02-26 Juventino Girard [facility] 14:13:00 HEMODIALYSIS 2021-02-26 Juventino Girard [facility] 11:28:12 THYROID STIMULATING 2021-02-26 [facility] HORMONE 09:31:00 T4, FREE 2021-02-26 [facility]al[facility] 09:31:00 ANTI XA, LOW MOLECULAR 2021-02-[address] [facility] WEIGHT 03:02:00 Lianet POC GLUCOSE 2021-02-26 [facility] 02:35:00 POC GLUCOSE 2021-02-25 Juventino Girard [facility] 22:15:00 POC GLUCOSE 2021-02-25 [facility] 17:03:00 POC GLUCOSE 2021-02-25 [facility] 14:14:00 ANTI XA, LOW MOLECULAR 2021-02-25 [facility] WEIGHT 08:53:00 Lianet COMPLETE BLD COUNT 2021-02-25 [facility] W/AUTO DIFF 08:53:00 POC GLUCOSE 2021-02-24 [facility] 22:34:00 HEPATITIS B SURFACE 2021-02-24 Juventino Girard [facility] spital ANTIGEN 21:47:00 HEMODIALYSIS 2021-02-24 [facility] 21:46:32 T4, FREE 2021-02-24 Morena Sun [facility] 20:14:00 T3 2021-02-24 Morena Sun Ho spital 20:14:00 THYROID STIMULATING 2021-02-24 Morena Sun [facility] HORMONE 20:14:00 POC GLUCOSE 2021-02-24 [facility] 17:25:00 POC GLUCOSE 2021-02-24 [facility] 13:19:00 HC COMPLETE BLD COUNT 2021-02-24 [facility] W/AUTO DIFF 09:41:00 BASIC METABOLIC PANEL 2021-02-24 [facility] 09:41:00 GLIADIN PEPTIDE ABS, IGA 2021-02-24 [facility] AND IGG 09:41:00 Lianet ESTIMATED GFR 2021-02-24 [facility] Hospit al 09:41:00 POC GLUCOSE 2021-02-24 Juevntino Girard Hospit al 00:47:00 POC GLUCOSE 2021-02-23 [facility] 22:10:00 POC GLUCOSE 2021-02-23 [facility] 17:56:00 POC GLUCOSE 2021-02-23 [facility] 13:03:00 HC COMPLETE BLD COUNT 2021-02-23 [facility] W/AUTO DIFF 09:41:00 BASIC METABOLIC PANEL 2021-02-23 [facility] 09:40:00 ESTIMATED GFR 2021-02-23 [facility] 09:40:00 POC GLUCOSE 2021-02-23 [facility] 01:06:00 POC GLUCOSE 2021-02-22 [facility] 22:37:00 TTE COMPLETE, WO [facility], W DOPPLER 21:00:00 ([id number]) [facility] NEED PHYS 2021-02-22 Santino Ulloa [facility] ospital SKILL,DX OR RX 19:33:29 POC GLUCOSE 2021-02-22 [facility] 17:47:00 BLOOD CULTURE, AEROBIC & 2021-02-22 [facility] ANAEROBIC 16:58:00 Lianet ANTI XA APIXABAN 2021-02-22 [facility] 16:58:00 Lianet KAPPA LAMBDA FREE LIGHT 2021-02-22 [facility] CHAIN WITH RATIO 16:58:00 Lianet THYROID PEROXIDASE 2021-02-22 [facility] ANTIBODY 16:58:00 THYROGLOBULIN ANTIBODY 2021-02-22 [facility] 16:58:00 T3 2021-02-22 [facility] 16:58:00 SERUM ELECTROPHORESIS 2021-02-22 [facility] 16:58:00 Lianet POC GLUCOSE 2021-02-22 [facility] 12:47:00 POC GLUCOSE 2021-02-22 [facility] 10:26:00 T3, FREE 2021-02-22 [facility]i [facility] 10:25:00 T4, FREE 2021-02-22 [facility] 10:25:00 HEMOGLOBIN A1C 2021-02-22 [facility]00 LIPID PANEL 2021-02-22 [facility] 10:25:00 CORTISOL LEVEL, RANDOM 2021-02-22 [facility] 10:25:00 TROPONIN 2021-02-22 [facility] 05:29:00 PREALBUMIN LEVEL 2021-02-22 [facility] antony 02:06:00 PHOSPHORUS LEVEL 2021-02-22 [facility] 02:06:00 MAGNESIUM LEVEL 2021-02-22 [facility] 02:06[facility]00 LIPID PANEL 2021-02-22 [facility] al 02:06:00 LIPASE LEVEL 2021-02-22 [facility] al 02:06:00 LACTIC ACID LEVEL 2021-02-22 R[facility] ital 02:06:00 COMPREHENSIVE METABOLIC 2021-02-22 Rigo [facility] Hospital PANEL 02:06:00 CREATINE KINASE, TOTAL 2021-02-22 [facility] (CPK) 02:06:00 THYROID STIMULATING 2021-02-22 [facility] HORMONE 02:06:00 T4, FREE 2021-02-22 [facility] al 02:06:00 B NATRIURETIC PEPTIDE 2021-02-22 [facility] 02:06:00 TROPONIN 2021-02-22 [facility] 02:06:00 ESTIMATED GFR 2021-02-22 [facility] 02:06:00 BILIRUBIN DIRECT 2021-02-22 [facility] 02:06:00 TROPONIN 2021-02-22 [facility] spital 01:26:00 COVID-19 QUALITATIVE 2021-02-22 Rehrer, [facility] RT-PCR 01:26:00 XR CHEST 1 VW PORTABLE 2021-02-22 [facility], [facility] 01:01:51 BLOOD CULTURE, AEROBIC & 2021-02-22 Rehrer, [facility] ANAEROBIC 00:43:00 HC COMPLETE BLD COUNT 2021-02-21 Rehrer, [facility] W/AUTO DIFF 22:56:00 COMPREHENSIVE METABOLIC 2021-02-21 Rehrer, [facility] PANEL 22:56:00 TROPONIN 2021-02-21 Rehrer, [facility] Ho spital 22:56:00 B NATRIURETIC PEPTIDE 2021-02-21 Rehrer, [facility] 22:56:00 ESTIMATED GFR 2021-02-21 Rehrer, [facility] spital 22:56:00 ECG ED PRELIMINARY 2021-02-21 Rehrer, [facility] INTERPRETATION 22:49:06 ECG 12-LEAD 2021-02-21 Rehrer, [facility] Ho spital 22:19:43 CVRAD - Right Upper 2021-01-24 [place] [facility] Arterial Duplex Uni/Lmt - 00:00:00 63730 [N] 2D Echo complete, 2021-01-17 [place] [facility] Doppler 73765 00:00:00 CVRAD - Right Upper 2020-12-27 [place] [facility] Arterial Duplex Uni/Lmt - 00:00:00 27724 [N] 2D Echo complete, 2020-12-27 [place] [facility] 14410 00:00:00 US Pelvis with Pelvis 2020-11-19 [place] [facility] [place] Transvaginal 80485 00:00:00 MA Breast mammogram 2020-11-19 [place] [facility] bilateral 83026 00:00:00 MA Breast mammogram 2020-11-14 [place] [facility] bilateral [id number] 00:00:00 [QL] TSH, 3RD GENERATION 2020-10-31 [place] [facility] 00:00:00 [QL] T4, FREE 2020-10-31 [place] [facility] 00:00:00 XRAY Chest 2 views [id number] 2020-07-26 [place] [facility] 00:00:00 [QL] CALCIUM, [...] 00:00:00 [QL] MAGNESIUM 2020-07-16 [place] [facility] 00:00:00 [id number] 2020-06-06 CHAKR.05 [facility] 00:00:00 [facility] [id number] 2020-06-06 CHAKR.05 [facility] 00:00:00 [facility] [id number] 2020-06-06 HOTA [facility] 00:00:00 [facility] [id number] 2020-06-05 [facility] 00:00:00 [facility] [place] Parathyroid S[place] 2020-[place] [id number] 00:00:00 [QL] TSH, 3RD GENERATION 2020-03-05 [place] [facility] 00:00:00 [QL] T4, FREE 2020-03-05 [place] [facility] 00:00:00 [id number] 2019-11-27 [facility] 00:[facility]:00 [facility] [id number] 2019-11-27 [facility] 00:00:00 [facility] [id number] 2019-11-27 [facility] 00:00:00 [facility] [id number] 2019-11-27 [facility] 00:00:00 [facility] [id number] 2019-11-27 [facility] 00:00:00 [facility] [id number] 2019-11-27 [facility] 00:00:00 [facility] [id number] 2019-11-27 [facility] 00:00:00 [facility] [QLH] TSH, 3RD GENERATION 2019-10-31 [facility]00 [id number] 2019-10-11 [facility] 00:00:00 [facility] [id number] 2019-10-11 [facility] 00:00:00 [facility] [id number] 2019-10-11 [facility] 00:00:00 [facility] [id number] 2019-10-11 [facility] 00:00:00 [facility] [id number] 2019-10-11 [facility] 00:00:00 [facility] [id number] 2019-10-11 [facility] 00:00:00 [facility] [id number] 2019-10-11 [facility] 00:00:00 [facility] [id number] 2019-10-11 [facility] 00:00:00 [facility] [id number] 2019-10-11 [facility] 00:00:00 [facility] [id number] 2019-10-11 [facility] 00:00:00 [facility] [id number] 2019-10-11 [facility] 00:00:00 [facility] [id number] 2019-10-11 [facility] 00:00:00 [facility] [id number] 2019-10-11 [facility] 00:00:00 [facility] [id number] 2019-10-11 [facility] 00:00:00 [facility] [id number] 2019-10-11 [facility] 00:00:00 [facility] [id number] 2019-10-11 [facility] 00:00:00 [facility] [id number] 2019-10-11 [facility] 00:00:00 [facility] [id number] 2019-10-11 [facility] 00:00:00 [facility] [id number] 2019-10-11 [facility] 00:00:00 [facility] [id number] 2019-10-11 [facility] 00:00:00 [facility] [id number] 2019-10-11 [facility] 00:00:00 [facility] [id number] 2019-10-11 [facility] 00:00:00 [facility] [id number] 2019-10-11 [facility] 00:00:00 [facility] [id number] 2019-10-11 [facility] 00:00:00 [facility] [id number] 2019-10-11 [facility] 00:00:00 [facility] [id number] 2019-10-11 [facility] 00:00:00 [facility] [id number] 2019-10-11 [facility] 00:00:00 [facility] [id number] 2019-10-11 [facility] 00:00:00 Rehabilitation P veronica [QLH] TSH, 3RD GENERATION 2019-09-28 [facility]00 XRAY Ankle 3 views 2019-09-28 [facility] Bilateral [id number] 00:00:00 XRAY Foot 3 views 2019-09-28 [facility] Bilateral 78091 00:00:00 XRAY Toe [id number] 2019-09-28 [facility] 00:00:00 CVRAD - Hemodialysis 2019-07-21 [facility] Access Duplex - [id number] 00:00:00 CVRAD - Left Upper Vein 2017-12-09 [place] [facility] Mapping Limited - 15791 00:00:00 [QLH] HEPATITIS B CORE AB 2017-11-09 [facility] TOTAL 00:00:00 [QLH] HEPATITIS PANEL 2017-11-09 [facility] 00[facility]00:00 [QLH] HEPATITIS B SURFACE 2017-11-09 [place] [facility] ANTIBODY (QUANT) 00:00:00 History of Thyroid [facility] Substernal Thyroidectomy History of Thyroid [facility] Luiz-Thyroidectomy Left Lobe History of Colostomy [facility] Cholecystectomy History of Hernia Repair [facility] History of Laminectomy [facility] Lumbar History of Arteriovenous [facility] fistula creation procedure History of [place] [facility] Gastrointestinal surgery Plan of Care Planned Activity Planned Date Details Comments Source Future Scheduled 2022-08-20 HEPATITIS B VACCINES [facility] Test 14:14:59 (1 of 3 - 3-dose series) [code = HEPATITIS B VACCINES (1 of 3 - 3-dose series)] Future Scheduled 2022-08-20 65+ PNEUMOCOCCAL [facility] Test 14:14:59 VACCINE (1 - PCV) [code = 65+ PNEUMOCOCCAL VACCINE (1 - PCV)] Future Scheduled 2022-08-20 DIABETES: RETINAL EYE Me [facility] Test 14:14:59 EXAM [code = DIABETES: RETINAL EYE EXAM] Future Scheduled 2022-08-20 DIABETIC FOOT EXAM [facility] Test 14:14:59 [code = DIABETIC FOOT EXAM] Future Scheduled 2022-08-20 SHINGLES VACCINES (1 [facility] Test 14:14:59 of 2) [code = SHINGLES VACCINES (1 of 2)] Future Scheduled 2022-08-20 BREAST CANC[facility] Test 14:14:59 SCREENING [code = BREAST CANCER SCREENING] Future Scheduled 2022-08-20 COLONOSCOPY SCREENING [facility] Test 14:14:59 [code = COLONOSCOPY SCREENING] Future Scheduled 2022-08-20 COVID-19 VACCINE (4 - [facility] Test 14:14:59 Booster for Pfizer series) [code = COVID-19 VACCINE (4 - Booster for Pfizer series)] Future Scheduled 2022-08-20 INFLUENZA VACCINE [facility] Test 14:14:59 [code = INFLUENZA VACCINE] Future Scheduled 2021-12-19 [N] 2D Echo complete, [facility] 00:00:00 with Doppler 08663 [code = [N] 2D Echo complete, with Doppler 96160] Future Scheduled 2021-12-19 [N] 2D Echo complete, [facility] Test 00:00:00 with Doppler 47907 [code = [N] 2D Echo complete, with Doppler 53499] Diagnostic Test 2020-12-27 [N] 2D Echo complete, [facility] Pending 00:00:00 with Doppler 33379 [code = [N] 2D Echo complete, with Doppler 48868] Diagnostic Test 2020-12-27 CVRAD - Right Upper [facility] Pending 00:00:00 Arterial Duplex Uni/Lmt - 72682 [code = 04316] Diagnostic Test 2020-12-27 CVRAD - Right Upper [facility] Pending 00:00:00 Arterial Duplex Uni/Lmt - 07999 [code = 78683] Diagnostic Test 2020-12-27 [N] 2D Echo complete, [facility] Pending 00:00:00 with Doppler 61157 [code = [N] 2D Echo complete, with Doppler 27432] Future Scheduled 2020-12-23 [QL] TSH, 3RD [facility] Test 00:00:00 GENERATION [code = [QL] TSH, 3RD GENERATION] Future Scheduled 2020-12-23 [QL] T4, FREE [code = [facility] 00:00:00 [QL] T4, FREE] Diagnostic Test 2020-05-30 NM Parathyroid SPECT [facility] Pending 00:00:00 69895 [code = 65136] Diagnostic Test 2020-05-30 NM Parathyroid SPECT [facility] 00:00:00 39525 [code = 68999] Diagnostic Test 2019-07-21 CVRAD - Hemodialysis [facility] 00:00:00 Access Duplex - 13833 [code = 69302] Future Scheduled 65+ [facility] VACCINE (1 of 4 - PCV13) [code = 65+ PNEUMOCOCCAL VACCINE (1 of 4 - PCV13)] Future Scheduled DIABETES: RETINAL E[facility] EXAM [code = DIABETES: RETINAL EYE EXAM] Future Scheduled DIABETIC FOOT EXAM [facility] Test [code = DIABETIC FOOT EXAM] Future Scheduled [facility] C [facility] Test (procedure) [code = 546958886] Future Scheduled BREAST CANCER [facility] Test SCREENING [code = BREAST CANCER [...] Date/Time Type Type Clinicians Facility Department ID 2022-07-24 Outpatient [facility] [id number] [place] 15:23:[id number] [place] [address] 2022-07-07 Outpatient 3 [id number] ENCPL RE[facility] 16:47:48 [facility] [place] 2022-05-30 Inpatient ML, [facility] 7534 [facility] H 21:14:20 ARMEN 2022-05-19 Inpatient [facility] [id number] [facility] 09:27:27 w, 26 [facility] 2022-05-05 Outpatient ML, [facility] 7533 [facility] 08:18:30 ARMEN 2021-10-16 Outpatient 3 BRIDGER HAMMOND CRD [id number] [facility] 13:12:13 NI 1030 [facility] [place] 2021-10-16 Outpatient 3 BRIDGER HAMMOND CRD [id number] [facility] 13:10:54 NI 1027 [facility] [place] 2021-10-16 Outpatient 3 [id number] ENCPL REF [id number] [facility] 13:10:12 1026 [facility] [place] 2021-10-16 Outpatient 3 [id number] ENCPL REF [facility] 13:09:50 1025 [facility] [place] 2021-10-16 Outpatient 3 STEPHANY BRIDGER OTH [facility] 09:20:30 NI 0306 [facility] [place] 2021-10-16 Outpatient 3 [id number] ENCPL REF [facility] 09:18:12 0301 [facility] [place] 2021-10-16 Outpatient 3 [id number] ENC[facility] REF [facility] 09:02:20 0121 [facility] [place] 2021-10-16 Outpatient 3 [id number] ENC[facility] REF [facility] 09:02:05 0120 [facility] [place] 2021 Outpatient FARHAT [facility] [id number] [place] 14:42:01 [facility] 2021-02-10 Outpatient LOLITA [facility] [id number] [place] [facility] Out[facility] REYES QUINTERO [facility] [id number] [place] 03:45:13 Health 2021-01-25 Outpatient TAMAR [facility] [id number] [place] 03:45:12 [facility] 2021-01-25 Outpatient JERSEY CARD [facility] [id number] [place] 03:45:12 [facility] 2020-12-10 Inpatient [place] DAYS [facility] 07:30:00 w, [id number] [facility] are [facility] 2020-06-14 Outpatient DAMIÁN [facility] 7528 08:55:34 [facility] 2020-06-04 Inpatient [place] DAYS [id number] H[facility] 14:45:00 w, 11[address] [facility] 2019-11-26 Inpatient 3 JANNIE HAMMONDKP OT [facility] 14:13:00 NI 0308 [facility] [place] 2018-12-20 [facility] 7521 [facility] H 05:54:00 2022-08-18 2022-08-18 Outpatient ML [facility] [id number] [place] 13:00:00 13:00:00 ARMEN Health 2022-07-08 2022-07-23 Inpatient 3 STEPHANY, ENCPL CRD [id number] [facility] 21:09:00 11:05:00 NI 1019 [facility] [place] 2022-06-25 2022-07-08 Outpatient Ml, [facility] [id number] 07:19:00 20:33:00 Armen 79 2022-06-25 2022-07-08 Inpatient U ML, [facility] [id number] 07:19:00 20:33:00 ARMEN 2022-06-30 2022-06-30 Outpatient ML, [facility] [id number] [place] 13:30:00 13:30:00 [facility] Health 2022-06-19 2022-06-25 Inpatient U ML, [facility] [id number] Memoria 23:50:00 07:18:00 ARMEN l [facility] 2022-06-19 2022-06-25 Outpatient Ml, [facility] [id number] 23:50:00 07:18:00 Armen 73 2022-06-19 2022-06-25 Outpatient Ml, [facility] [id number] 23:50:00 07:18:00 Armen 73 2022-06-18 2022-06-18 Nurse Zac Stoner 1.2.840. 114 [id number] [place] 00:00:00 00:00:00 Triage Zac Stoner 350.1.13.58 [facility] 9.2.7.2.686 CENTER [id number] 2022-06-08 2022-06-08 Outpatient DANIELLE, [facility] [id number] [place] 15:00:00 15:00:00 [facility] 2022-06-08 2022-06-08 Outpatient LOLITA, [facility] [id number] [place] 09:00:00 10:47:30 [facility] 2022-05-11 2022-05-11 Office DANITZA Santos 6410 1.2.840.114 14 [id number] [place] 15:20:00 16:35:[address] 350.1.13.58 Health 9.2.7.2.686 [id number] 2 2022-04-29 2022-04-29 Telephone Osmel, 1.2.840.1 [id number] [id number] Methodi 00:00:00 00:00:[address] 3.430.2.7 Hospit a .3.103368 l .8 2022-04-13 2022-04-13 Outpatient [facility] [id number] 11:46:00 19:12:00 Tricia 32 s 2022-04-13 2022-04-13 Outpatient [facility] 753 [id number] [facility] 11:46:00 19:12:00 GISSELBEN S 2021-12-29 2022-04-13 Office Luna, 1.2.840.1 [id number] Methodi 14:40:00 15:46:16 Visit Lew 53658.1.1 920 s t Sharma 3.430.2.7 Hospit a .3.822991 l .8 2022-04-10 2022-04-10 Telephone Tammi Giraldo DANITZA 1.2.840.11 4 [id number] [place] 00:00:00 00:00:00 Tammi Giraldo [facility] 350.1.13.58 Health MULTI 9.2.7.2.686 SPECIALTY [id number] CLINIC 1 2022-04-08 2022-04-08 Office DANITZA Bull 6400 1.2.840.114 [id number] [place] 15:30:00 16:00:[address] 350.1.13.58 Health 9.2.7.2.686 [id number] 2 2022-04-06 2022-04-06 Office DANITZA Santos 6410 1.2.840.114 13 [id number] [place] 12:00:00 16:22:[address] 350.1.13.58 Health 9.2.7.2.686 [id number] 2 2022-03-30 2022-03-30 Telephone Dmitri, 1.2.840.1 [id number] 2100 [id number] Methodi 00:00:00 00:00:[address] 3.430.2.7 Hospit a .3.329373 l .8 2022-03-24 2022-03-24 Telephone Elvira Moreira 1.2.840.1 [id number] 2 [id number] Methodi 00:00:00 00:00:[address] 3.430.2.7 Hospit a .3.143227 l .8 2022-02-27 2022-02-27 Telephone DANITZA Boyle 6410 1.2.840.114 13 [id number] [place] 00:00:00 00:00:[address] 350.1.13.58 Health 9.2.7.2.686 [id number] 1 2022-02-12 2022-02-13 Office Tamar, [facility] 6410 1.2.710.337 3849 [id number] [place] 16:10:00 11:16:[address] 350.1.13.58 Health 9.2.7.2.686 [id number] 1 2022-01-27 2022-02-04 [facility] 1.2.840.1 [id number] Methodi 12:39:00 18:01:00 Encounter Bhaman Penny 84254.1.[address] 3.430.2.7 Hospit a .3.995406 l .8 2022-01-27 2022-02-04 Inpatient [facility] [id number] Loving 00:00:00 00:00:00 BAHMAN [address] 2022-01-27 2022-01-27 Surgery [facility] 1.2.840.1 [id number] Methodi 16:10:00 17:10:[address] 3.430.2.7 Hospit a .3.570298 l .8 2022-01-27 2022-01-27 [facility], 1.2.840.1 [id number] Methodi 11:04:22 12:38:00 Encounter Rayan [address]59.1.[address] 3.430.2.7 Hospit a .3.373818 l .8 2022-01-27 2022-01-27 [facility], 1.2.840.1 [id number] Methodi 12:30:00 12:30:00 Encounter Rayan 73843.1.[address] 3.430.2.7 Hospit a .3.742978 l .8 2022-01-27 2022-01-27 [facility], 1.2.840.1 [id number] Methodi 09:39:52 11:03:00 Encounter Keith [address]651.1.[address] 3.430.2.7 Hospit a .3.637294 l .8 2022-01-27 2022-01-27 [facility], 1.2.840.1 [id number] 2100 [id number] Methodi 07:52:28 09:38:00 Encounter Humble [address]193.1.[address] 3.430.2.7 Hospit a .3.091637 l .8 2022-01-27 2022-01-27 [facility], 1.2.840.1 [id number] 2099 [id number] Methodi 07:30:00 07:51:00 Encounter Humble 76053.1.[address] 3.430.2.7 Hospit a .3.284307 l .8 2022-01-27 2022-01-[address] [facility] 021 [id number] [id number] Loving 00:00:00 00:00:00 RAYAN [address] 2022-01-27 2022-01-27 Travel 1.2.840.1 1.2.325.025 8416 [id number] Methodi 00:00:00 00:00:[address] 3.430.2.7 0.2.7.3.698 Ho spita .3.231660 084.8 l .8 2022-01-27 2022-01-27 Outpatient TAMAR, [facility] [id number] Loving 00:00:00 00:00:00 HUMBLE [address] 2022-01-27 2022-01-27 Outpatient TAMAR, [facility] [id number] Loving 00:00:00 00:00:00 HUMBLE [address] 2022-01-27 2022-01-27 Outpatient GAURAV, [facility] [id number] Loving 00:00:00 00:00:00 KEITH 052 Method i 2022-01-27 2022-01-27 Outpatient CLARA, [facility] [id number] Loving 00:00:00 00:00:00 RAYTHEODORE 012 Method i 2022-01-26 2022-01-26 Documentat Provider, 1.2.840.1 [id number] Methodi 00:00:00 00:00:00 ion Unknown 15888.1.[address] 3.430.2.7 Hospit a .3.991285 l .8 2022-01-23 2022-01-23 Telephone Brendon, 1.2.840.1 [id number] Methodi 00:00:00 00:00:[address] 3.430.2.7 Hospit a .3.652444 l .8 2022-01-21 2022-01-21 Travel 1.2.840.1 1.2.598.865 8606 [id number] Methodi 00:00:00 00:00:[address] 3.430.2.7 0.2.7.3.698 Ho spita .3.789088 084.8 l .8 2022-01-20 2022-01-20 Adriano Ann, 1.2.840.1 [id number] 8438 Methodi 00:00:00 00:00:00 Only Corita 43165.1.[address] 3.430.2.7 Hospit a .3.952817 l .8 2022-01-20 2022-01-20 Telephone Brendon, 1.2.840.1 [id number] Methodi 00:00:00 00:00:[address] 3.430.2.7 Hospit a .3.151783 l .8 2022-01-15 2022-01-15 Travel 1.2.840.1 1.2.915.238 2176 [id number] Methodi 00:00:00 00:00:[address] 3.430.2.7 0.2.7.3.698 Ho spita .3.562557 084.8 l .8 2022-01-15 2022-01-15 Orders Marissa, 1.2.840.1 [id number] Methodi 00:00:00 00:00:00 Only Kim 65705.1.[address] 3.430.2.7 Hospit a .3.147417 l .8 2022-01-14 2022-01-14 Telephone Brendon, 1.2.840.1 [id number] 047 [id number] Methodi 00:00:00 00:00:[address] 3.430.2.7 Hospit a .3.817719 l .8 2022-01-05 2022-01-05 Telephone Cele, 1.2.840.1 [id number] 5 [id number] Methodi 00:00:00 00:00:00 Alisa Reynaga 04338.1.1 [address] t 3.430.2.7 Hospit a .3.739631 l .8 2022-01-01 2022-01-01 Office Oziel, 1.2.840.1 [id number] 2100 [id number] Methodi 09:40:00 11:28:23 Visit Bill 06628.1.[address] Lianet 3.430.2.7 Hospit a .3.574738 l .8 2022-01-01 2022-01-01 Travel 1.2.840.1 1.2.652.429 2002 [id number] Methodi 00:00:00 00:00:[address] 3.430.2.7 0.2.7.3.698 Ho spita .3.265143 084.8 l .8 2022-01-01 2022-01-01 Outpatient OZIEL, [facility] [id number] Loving 00:00:00 00:00:00 BILL [address] 2021-12-29 2021-12-29 Lab Lee Ann, 1.2.840.1 [id number] Methodi 15:35:00 15:40:00 Peng Osama [address]1616.1.[address] 3.430.2.7 Hospit a .3.481547 l .8 2021-12-29 2021-12-29 Travel 1.2.840.1 1.2.131.255 2321 [id number] Methodi 00:00:00 00:00:[address] 3.430.2.7 0.2.7.3.698 Ho spita .3.438775 084.8 l .8 2021-12-29 2021-12-29 Outpatient LUNA, [facility] [id number] Loving 00:00:00 00:00:00 ANTONYCindi [address] 2021-12-29 2021-12-29 Outpatient LEE ANN [facility] [id number] Loving 00:00:00 00:00:00 PENG [address] 2021-12-25 2021-12-25 Telephone Dmitri, 1.2.840.1 [id number] Methodi 00:00:00 00:00:[address] 3.430.2.7 Hospit a .3.439876 l .8 2021-12-25 2021-12-25 Orders Jenny Deshpandeo 1.2.840.1 [id number] 21 [id number] Methodi 00:00:00 00:00:00 Only M 72310.1.[address] 3.430.2.7 Hospit a .3.077613 l .8 2021-12-25 2021-12-25 Telephone Juan Deshpande 1.2.840.1 [id number] Methodi 00:00:00 00:00:[address] 3.430.2.7 Hospit a .3.145373 l .8 2021-12-25 2021-12-25 Travel 1.2.840.1 1.2.715.486 5214 [id number] Methodi 00:00:00 00:00:[address] 3.430.2.7 0.2.7.3.698 Ho spita .3.081775 084.8 l .8 2021-12-23 2021-12-23 Telephone Ramana, 1.2.840.1 [id number] 21 [id number] Methodi 00:00:00 00:00:[address] 3.430.2.7 Hospit a .3.959961 l .8 2021-12-22 2021-12-22 Telephone Osmel, 1.2.840.1 [id number] 544 [id number] Methodi 00:00:00 00:00:[address] 3.430.2.7 Hospit a .3.107368 l .8 2021-12-17 2021-12-17 Telephone Americo, 1.2.840.1 [id number] 2 [id number] Methodi 00:00:00 00:00:[address] 3.430.2.7 Hospit a .3.628120 l .8 2021-12-15 2021-12-15 Telephone Mikel 1.2.840.1 [id number] Methodi 00:00:00 00:00:00 margaretCheyenne 20787.1.1 090 s t 3.430.2.7 Hospit a .3.301810 l .8 2021-12-03 2021-12-10 Telemedici Facong, 1.2.840.1 [id number] 130 [id number] Methodi 15:45:00 00:29:03 ne Allan 93329.1.[address] Kanu 3.430.2.7 Hospit a Bao .3.560214 l .8 2021-12-03 2021-12-03 Outpatient [facility], [facility] [id number] Loving 00:00:00 00:00:[address] ALLAN [address] 2021-11-20 2021-11-20 Telephone [facility] 1.2.840.1 [id number] Methodi 00:00:00 00:00:00 s, Tammi 39332.1.[address] 3.430.2.7 Hospit a .3.701515 l .8 2021-11-19 2021-11-19 Multidisci Ingridcong, 1.2.840.1 [id number] 713 [id number] Methodi 14:45:00 16:29:41 plinary Allan [address]2674.1.[address] Visit Kanu 3.430.2.7 Hospit a Bao .3.402850 l .8 2021-11-19 2021-11-19 Office Marcossylvester, 1.2.840.1 [id number] 226 [id number] Methodi 16:00:00 16:20:00 Visit Gabriela 32150.1.[address] 3.430.2.7 Hospit a .3.506444 l .8 2021-11-19 2021-11-19 Telephone [facility], 1.2.840.1 [id number] 2099 [id number] Methodi 00:00:00 00:00:[address] 3.430.2.7 Hospit a .3.161413 l .8 2021-11-19 2021-11-19 Travel 1.2.840.1 1.2.717.905 1225 112233 Methodi 00:00:00 00:00:[address] 3.430.2.7 0.2.7.3.698 Ho spita .3.025237 084.8 l .8 2021-11-19 2021-11-19 Outpatient JOHANA, [facility] [id number] 068 Loving 00:00:00 00:00:00 ALLAN [address] 2021-11-18 2021-11-18 Telephone Phyllis, 1.2.840.1 [id number] 2099 [id number] Methodi 00:00:00 00:00:[address] 3.430.2.7 Hospit a .3.547820 l .8 2021-11-18 2021-11-18 Travel 1.2.840.1 1.2.824.871 3812 800374 Methodi 00:00:00 00:00:00 14161.1.1 350.1.13.[address] 3.430.2.7 0.2.7.3.698 Ho spita .3.936402 084.8 l .8 2021-11-18 2021-11-18 Telephone Romero, 1.2.840.1 [id number] 2099 [id number] Methodi 00:00:00 00:00:[address] 3.430.2.7 Hospit a .3.473007 l .8 2021-11-12 2021-11-12 Telephone Faza, 1.2.840.1 [id number] 2100 [id number] Methodi 00:00:00 00:00:[address] Kanu 3.430.2.7 Hospit a Bao .3.864962 l .8 2021-10-29 2021-10-29 Multidisci Faza, 1.2.840.1 [id number] 409 [id number] Methodi 16:00:00 17:05:56 plinary Allan 31716.1.[address] Visit Kanu 3.430.2.7 Hospit a Bao .3.343055 l .8 2021-10-29 2021-10-29 Outpatient JOHANA, [facility] [id number] Loving 00:00:00 00:00:00 ALLAN [address] 2021-10-29 2021-10-29 Outpatient JOHANA [facility] [id number] Loving 00:00:00 00:00:00 ALLAN [address] 2021-10-28 2021-10-28 Travel 1.2.840.1 1.2.333.939 4895 495233 Methodi 00:00:00 00:00:[address] 3.430.2.7 0.2.7.3.698 Ho spita .3.647180 084.8 l .8 2021-10-24 2021-10-24 Orders Johana, 1.2.840.1 [id number] 734053 8795 Methodi 00:00:00 00:00:00 Only Allan 47554.1.[address] Kanu 3.430.2.7 Hospit a Bao .3.956021 l .8 2021-10-07 2021-10-07 Travel 1.2.840.1 1.2.338.364 6970 111513 Methodi 00:00:00 00:00:[address] 3.430.2.7 0.2.7.3.698 Ho spita .3.651399 084.8 l .8 2021-10-07 2021-10-07 Outpatient ELVIRA MOREIRA [facility] 2100 [id number] Loving 00:00:00 00:00:[address] 2021-10-02 2021-10-02 Arthur Noble, 1.2.840.1 [id number] 2099 [id number] Methodi 00:00:00 00:00:[address] 3.430.2.7 Hospit a .3.931932 l .8 2021-10-01 2021-10-01 Telephone Elvira Moreira 1.2.840.1 [id number] 2 [id number] Methodi 00:00:00 00:00:[address] 3.430.2.7 Hospit a .3.343036 l .8 2021-10-01 2021-10-01 Travel 1.2.840.1 1.2.157.055 4636 965668 Methodi 00:00:00 00:00:[address] 3.430.2.7 0.2.7.3.698 Ho spita .3.291999 084.8 l .8 2021-09-26 2021-09-26 Telephone [place], 1.2.840.1 [id number] Methodi 00:00:00 00:00:[address] 3.430.2.7 Hospit a .3.193168 l .8 2021-09-25 2021-09-25 Orders [place], 1.2.840.1 [id number] 2099 855948 Methodi 00:00:00 00:00:00 Only Jazmine 27467.1.[address] 3.430.2.7 Hospit a .3.156819 l .8 2021-09-23 2021-09-23 Orders Sun, 1.2.840.1 [id number] Methodi 00:00:00 00:00:00 Only Morena 38605.1.[address] 3.430.2.7 Hospit a .3.654978 l .8 2021-09-23 2021-09-23 Refill [place], 1.2.840.1 [id number] 2099 780718 Methodi 00:00:00 00:00:[address] 3.430.2.7 Hospit a .3.096941 l .8 2021-09-11 2021-09-11 Orders Phyllis, 1.2.840.1 [id number] 828288 3946 Methodi 00:00:00 00:00:00 Only Clementina 99391.1.[address] 3.430.2.7 Hospit a .3.989366 l .8 2021-09-02 2021-09-02 Telephone Elvira Moreira 1.2.840.1 [id number] 2 [id number] Methodi 08:00:00 09:17:39 Consult Lianet 45579.1.[address] 3.430.2.7 Hospit a .3.851498 l .8 2021-09-02 2021-09-02 Telephone Dmitri, 1.2.840.1 [id number] 2099 058659 Methodi 00:00:00 00:00:[address] 3.430.2.7 Hospit a .3.636395 l .8 2021-09-02 2021-09-02 Outpatient ELVIRA MOREIRA [facility] 2100 [id number] Loving 00:00:00 00:00:[address] 2021-08-26 2021-08-26 Outpatient [facility] DAYS BP8 [id number] [facility] 06:47:00 06:47:00 w, [address] [facility] 2021-08-22 2021-08-22 Outpatient ELVIRA MOREIRA [facility] 2100 [id number] Loving 00:00:00 00:00:[address] 2021-08-22 2021-08-22 Telephone Phyllis, 1.2.840.1 [id number] 2099 840005 Methodi 00:00:00 00:00:[address] 3.430.2.7 Hospit a .3.261021 l .8 2021-08-04 2021-08-04 Outpatient ELVIRA MOREIRA [facility] 2100 [id number] Loving 00:00:00 00:00:[address] 2021-07-09 2021-07-19 [id number] 14:22:00 14:36:00 Kandace 10 [facility] 2021-07-09 2021-07-19 Inpatient [facility] [id number] [facility] 14:22:00 14:36:00 Kandace 40725 [facility] 2021-07-09 2021-07-10 Office OZIEL, 1.2.840.1 [id number] 2100 324131 Loving 00:00:00 00:00:00 Visit BILL 73695.1.1 [address] .3.435857 .8 2021-07-09 2021-07-09 Outpatient Tessa PAIGEW REF [id number] [facility] 18:56:00 18:56:00 Kandace White [facility] are [facility] 2021-07-09 2021-07-09 Travel 1.2.840.1 1.2.209.337 8019 553224 Methodi 00:00:00 00:00:[address] 3.430.2.7 0.2.7.3.698 Ho spita .3.520405 084.8 l .8 2021-07-07 2021-07-07 Travel 1.2.840.1 1.2.739.593 9857 330354 Methodi 00:00:00 00:00:[address] 3.430.2.7 0.2.7.3.698 Ho spita .3.492807 084.8 l .8 2021-07-07 2021-07-07 Sugey Noble, 1.2.840.1 [id number] Methodi 00:00:00 00:00:[address] 3.430.2.7 Hospit a .3.662885 l .8 2021-06-24 2021-06-24 Travel 1.2.840.1 1.2.572.066 1315 514462 Methodi 00:00:00 00:00:[address] 3.430.2.7 0.2.7.3.698 Ho spita .3.715480 084.8 l .8 2021-03-31 2021-03-31 Adriano Ann, 1.2.840.1 [id number] 489539 8048 Methodi 00:00:00 00:00:00 Only Bill 97869.1.[address] Lianet 3.430.2.7 Hospit a .3.300825 l .8 2021-03-31 2021-03-31 Orders Corinne, 1.2.840.1 [id number] 21 [id number] Methodi 00:00:00 00:00:00 Only Morena 76709.1.[address] 3.430.2.7 Hospit a .3.447695 l .8 2021-03-11 2021-03-11 Office Corinne, 1.2.840.1 [id number] 21 [id number] Methodi 09:23:23 10:26:37 Visit Morena 59257.1.[address] 3.430.2.7 Hospit a .3.942784 l .8 2021-03-11 2021-03-11 Travel 1.2.840.1 1.2.340.367 0140 119232 Methodi 00:00:00 00:00:[address] 3.430.2.7 0.2.7.3.698 Ho spita .3.769959 084.8 l .8 2021-03-10 2021-03-10 Telephone Reyes Quintero 1.2.840.114 [id number] [place] 00:00:00 00:00:00 HEIGHTS 350.1.13.58 He alth MULTI 9.2.7.2.686 SPECIALTY 450.6997043 CLINIC 8 2021-03-08 2021-03-08 Orders Reyes Quintero 1.2.840.114 12 [id number] [place] 00:00:00 00:00:00 Only HEIGHTS 350.1.13.58 He alth MULTI 9.2.7.2.686 SPECIALTY 722.8279191 CLINIC 8 2021-02-21 2021-02-28 [facility] 1.2.840.1 104 052257 9928298352 Methodi 17:16:00 19:23:00 Encounter Juventino Girard 42515.1.[address] 3.430.2.7 Hospit a .3.626251 l .8 2021-02-06 2021-02-06 Telephone Grabiel Gould 1.2.840.114 [id number] [place] 00:00:00 00:00:00 BELLAIRE 350.1.13.58 H [facility] MEDICAL 9.[address].7.[address] [facility] [id number] 3 2021-02-05 2021-02-05 Telephone Grabiel Gould 1.2.840.114 [id number] [place] 00:00:00 00:00:00 BELLAIRE 350.1.13.58 H [facility] MEDICAL 9.2.7.2.[address] [facility] [id number] 3 2021-01-31 2021-01-31 Outpatient [facility] DAYS BP8 [id number] [facility] 07:22:00 07:22:00 w, [address] [facility] are [facility] 2021-01-24 2021-01-24 DANITZA Lisa [facility]iology [id number] [place] 14:30:00 14:30:00 t; BUREAU - [place] [facility] VASCULAR, [facility] 2021-01-16 2021-01-16 DANITZA [facility] [id number] [place] 15:45:00 15:45:00 t; GRABIEL GOULD M.D. [facility] clifton SPAIN [facility] Donna [facility] 2021-01-16 2021-01-16 DANITZA Markham Non-Invasiv 7 [id number] [place] 15:00:00 15:00:00 t; ECHO e - [facility] ECHO [place] 2020-12-31 2020-12-31 Outpatient [place] Card MHOIP MHOIP [id number] 10:51:00 23:59:00 Laine 11 2020-12-26 2020-12-26 DANITZA Stiles Multispecia [id number] [place] 15:15:00 15:15:00 t; GRBAIEL GOULD M.D. y - P Carlotta Garrett M.D. 2020-12-05 2020-12-05 Outpatient [facility] REF BN0 [id number] [facility] 16:11:00 16:11:00 w, 54 [facility] 2020-11-21 2020-11-21 Appointmen CO19, [facility] [id number] [place] 10:30:00 10:30:00 t; CO19, NURSE-COOLE P hysici NURSE-COOL Y ans EY 2020-11-19 2020-11-19 Appointmen ADRY, [facility] Obstetrics [id number] [place] 10:45:00 10:45:00 t; JERSEY CARD M.D. and Vini SAINZ [facility] shalom Thompson [facility] 2020-11-14 2020-11-14 Appointradha BOYLE, [facility] Family [id number] [place] 15:40:00 15:40:00 t; [facility] Raphael BOYLE M.D. [facility] Nathan REYES M.D. [place] 2020-10-29 2020-10-29 Appointradha QUINTERO, [facility] [id number] [place] 09:20:00 09:20:00 t; REYES QUINTERO M.D. P hysici MARC, M.D. [facility] 2020-10-26 2020-10-26 Appointmen ARETHA, [facility] [id number] [place] 10:20:00 10:20:00 t; CO19, NURSE-COOLE P hysici NURSE-COOL Y ans EY 2020-10-14 2020-10-14 [facility] Psychiatry [id number] [place] 16:00:00 16:00:00 t; RIZWAN, Outpatient Raphael MCHUGH M.D. [facility] SMOOTH ASTORAG M.D. 2020-09-03 2020-09-03 Appointradha [facility] [id number] [place] 10:20:00 10:20:00 t; REYES QUINTERO M.D. P hysici MARC, M.D. [facility] 2020-08-12 2020-08-12 Appointradha [facility] Psychiatry [id number] [place] 16:00:00 16:00:00 t; RIZWAN, Outpatient Raphael MCHUGH M.D. [facility] SMOOTH ASTORGA M.D. 2020-07-29 2020-07-29 Outpatient Damián [facility] [id number] 14:31:00 23:59:00 Davis A 10 2020-07-29 2020-07-29 DANITZA L[facility] [id number] [place] 15:00:00 15:00:00 t; DAVIS STEEL cic & Raphael LESTER M.D. Vascular shalom Thompson Surgery - [facility] 2020-07-26 2020-07-26 Outpatient Chukwuma, MHPL MHPL [id number] 17:10:28 20:32:00 Russ Phong 31 2020-07-26 2020-07-26 Emergency E CHUKWFREDDY, MHBL MHBL [id number] MHBL 17:10:00 20:32:00 RUSS 2020-07-23 2020-07-23 Appointradha QUINTERO [facility] Multispecia [id number] [place] 09:00:00 09:00:00 t; REYES QUINTERO M.D. [facility] Hanna [facility] 2A 2020-07-12 2020-07-16 Outpatient Damián, [facility] [id number] 05:55:00 17:52:00 Davis Puente 30 2020-07-12 2020-07-16 Inpatient DAMIÁN, MH MHH 7530 MHHH 05:55:00 17:52:00 DAVIS 2020-07-12 2020-07-12 Akua STEEL [facility] [id number] [place] 08:30:00 08:30:00 t; DAVIS STEEL Phy sici PHILIP, M.D. ans M.D. 2020-07-12 2020-07-12 Outpatient Damián [facility] [id number] 05:55:00 05:55:00 Davis A 30 2020-06-18 2020-06-18 Outpatient Damián, PL PL [id number] 10:18:00 23:59:00 Davis A 29 2020-06-18 2020-06-18 Outpatient DAMIÁN, MHBL ED 7529 MHBL 10:18:00 10:18:00 DAVIS 2020-06-17 2020-06-17 Akua MCHUGH [facility] Psychiatry [id number] [place] 16:00:00 16:00:00 t; Christine ASTORGA M.D. [facility] SMOOTH ASTORGA M.D. 2020-05-28 2020-05-28 Appointradha SETEL, [facility] Cardiothora [id number] [place] 15:00:00 15:00:00 t; DAVIS STEEL, brianda & Raphael LESTER M.D. [facility] Donna Surgery - [facility] 2020-05-20 2020-05-20 Appointardha REBOLLAR [facility] General [id number] [place] 14:00:00 14:00:00 t; Donna HEWITT [facility] 2020-05-07 2020-05-07 Appointmen GALILEO [facility] UTP [id number] [place] 13:30:00 13:30:00 t; W Physic theodore Duque M.D. KRISTOFER, M.D. 2020-04-22 2020-04-22 Appointradha MCHUGH [facility] Psychiatry [id number] [place] 16:00:00 16:00:00 t; RIZWAN, Outpatient Raphael MCHUGH M.D. [facility] SMOOTH ASTORGA M.D. 2020-03-05 2020-03-05 [facility] [id number] [place] 10:20:00 10:20:00 t; REYES QUINTERO M.D. Surgery - [facility] Donna WOODS [facility] 2020-01-22 2020-01-22 Appointradha SILVA, [facility] Minimally [id number] [place] 14:00:00 14:00:00 t; DORINDA Invasive Vinicius SILVA M.D. [facility] Reji Morelos M.D. ([facility]) 2020-01-08 2020-01-08 Appointradha SILVA, [facility] UTP [id number] [place] 14:45:00 14:45:00 t; Anders SETH M.D. ans RICHARD, M.D. 2019-11-15 2019-11-26 Outpatient Andrassy, [facility] [id number] 06:09:00 14:00:00 Dorinda Royal 27 2019-11-15 2019-11-26 Inpatient ANDRASSY, [facility] ED [id number] [facility] 06:09:00 14:00:00 DORINDA 2019-11-15 2019-11-15 Appointradha LINDHEIDE, [facility] Family [id number] [place] 08:00:00 08:00:00 t; Nohelia SETH - Funmi SILVA M.D. [facility] DORINDA [facility] M.D. [place] 2019-11-15 2019-11-15 Appointradha FARHAT, [facility] UTP [id number] [place] 07:30:00 07:30:00 t; [facility] Donna RICE 2019-10-31 2019-10-31 [facility] Cardi[facility] [id number] [place] 14:00:00 14:00:00 t; W, cic & Physic i DAVID RENDON, Vascular a rios EPPS M.D. [facility] 2019-10-31 2019-10-31 Appointradha BOYLE, [facility] Family [id number] [place] 09:30:00 09:30:00 t; Nohelia REYES - Raphael BOYLE M.D. [facility] HUMBLE [facility] M.D. [place] 2019-10-10 2019-10-10 [facility] [id number] [place] 14:00:00 14:00:00 t; W, Physic i DAVID RENDON an s Donna EPPS M.D. 2019-10-10 2019-10-10 Appointradha [facility] [id number] [place] 11:20:00 11:20:00 t; REYES QUINTERO M.D. P hysici MARC, M.D. [facility] 2019-10-01 2019-10-06 Outpatient Molony, [facility] [id number] 01:07:00 18:45:00 Ulises Cain 2019-10-01 2019-10-06 Inpatient U MOLONY, [facility] ED [id number] [facility] 01:07:00 18:45:00 ULISES 2019-09-28 2019-09-28 Appointradha LOUIS [facility] Family [id number] [place] 15:30:00 15:30:00 t; LIANET LOUIS, Nohelia - Josh MARTINI M.D. [facility] 2019-08-15 2019-08-15 [facility] Cardiothora [id number] [place] 11:15:00 11:15:00 t; W, cic & Physic i DAVID RENDON Vascular a rios EPPS M.D. Surgery - [facility] 2019-08-11 2019-08-11 Akua MCHUGH [facility] Psychiatry [id number] [place] 16:00:00 16:00:00 t; RIZWAN, Outpatient Raphael MCHUGH M.D. [facility] SMOOTH ASTORGA M.D. 2019-08-03 2019-08-03 DANITZA Stiles [facility] [id number] [place] 15:00:00 15:00:00 t; GRABIEL GOULD M.D. y - [facility] Donna 2019-07-31 2019-07-31 Akua MCHUGH [facility] [id number] [place] 15:00:00 15:00:00 t; Radha ASTORGA i, M.D. ans SILVIA, M.D. 2019-07-26 2019-07-27 Outpatient [facility] [id number] 11:35:00 19:17:00 w Mike Rendon 2019-07-25 2019-07-25 Akua MANZANO [facility] Minimally [id number] [place] 11:00:00 11:00:00 t; Donna MEEK Invasive Ph dorinda MANZANO, [facility] shalom MEEK M.D. [place] ([facility]) 2019-07-26 2019-07-24 Inpatient U [facility] [id number] [facility] 11:35:00 12:26:00 2019-07-21 2019-07-21 [facility] [id number] [place] 12:00:00 12:00:00 t; W, cic & Physic i DAVID RENDON Vascular a rios EPPS M.D. Surgery - [facility] 2019-07-21 2019-07-21 Akua VASCULAR, [facility] UTP [id number] [place] 10:00:00 10:00:00 t; [facility] Physic i VASCULAR, ans [facility] 2019-07-17 2019-07-17 Akua ANDHEIDE, [facility] Minimally [id number] [place] 14:00:00 14:00:00 t; Brittney SETH M.D. [facility]geons [facility] an Reji SETH M.D. ([facility]) 2019-06-13 2019-06-13 Appointradha GROVER-BRIAN [facility] Cardiothora [id number] [place] 10:00:00 10:00:00 t; W, cic & Physic i Willie HERNANDEZ M.D. Surgery - Jeanie RENDON M.D. 2019-06-12 2019-06-12 Akua DOUGHERTY, [facility] UTP [id number] [place] 14:45:00 14:45:00 t; Donna RICE ans AMIT, M.D. 2019-05-30 2019-05-30 [facility] [id number] 10:24:00 14:52:00 Krystal Johnson 25 2019-05-30 2019-05-30 DANITZA Guzman [facility] [id number] [place] 12:00:00 12:00:00 t; Donna RICE ans AMIT, M.D. 2019-05-30 2019-05-30 Outpatient FB FB [id number] FB 10:24:00 10:24:00 2019-05-11 2019-05-11 DANITZA [facility] [id number] [place] 16:00:00 16:00:00 t; ECHO - [place] [facility] 2019-05-11 2019-05-11 DANITZA Stiles UTP [id number] [place] 14:45:00 14:45:00 t; GRABIEL GOULD M.D. P hysici POYEE, ans M.D. 2019-05-01 2019-05-01 Akua MCHUGH, DANITZA UTP [id number] [place] 15:00:00 15:00:00 t; Radha ASTORGA i, M.D. ans SILVIA, M.D. 2019-04-25 2019-04-25 [facility] DOUGHERTY, [facility] [id number] [place] 14:30:00 14:30:00 t; Donna RICE ans AMIT, M.D. 2019-04-24 2019-04-24 [facility] ANDRASSY, [facility] [id number] [place] 14:30:00 14:30:00 t; DORINDA Physi Donna Delaney M.D. 2019-04-06 2019-04-06 [facility] Emeli [facility] [id number] 14:15:00 23:59:00 Marlys 2019-04-03 2019-04-03 [facility] ANDRASSY, [facility] [id number] [place] 13:00:00 13:00:00 t; DORINDA Physi Donna Delaney M.D. 2019-03-27 2019-03-27 [facility] EMELI, [facility] [id number] [place] 14:45:00 14:45:00 t; Donna CANALES Ph, ans DEEPA, M.D. 2019-03-21 2019-03-21 [facility] [id number] [place] 11:15:00 11:15:00 t; W, Physic i theodore HERNANDEZ M.D. KRISTOFER, M.D. 2019-03-21 2019-03-21 [facility] VASCULAR, [facility] [id number] [place] 09:30:00 09:30:00 t; [facility] Physic i VASCULAR, ans [facility] 2019-02-23 2019-02-23 Appointmen JANELL, [facility] [id number] UT 13:45:00 13:45:00 t; LIVAN MACIEL P hysici CHRISTINE, M.D. ans M.D. 2019-02-14 2019-02-14 Appointmen [facility] [id number] [place] 13:30:00 13:30:00 t; W, Physic theodore Duque M.D. KRISTOFER, M.D. 2019-01-25 2019-01-25 Outpatient Ginny [facility] [id number] 05:46:00 12:43:00 Jhonatan Zepeda 24 2019-01-25 2019-01-25 Outpatient [facility] 7524 [facility] 05:46:00 05:46:00 2019-01-16 2019-01-16 Appointmen GINNY, UTP UTP [id number] UT 13:45:00 13:45:00 t; JHONATAN PETERSEN M.D. Physici BRUCE, ans M.D. 2019-01-16 2019-01-16 Appointmen VASCULAR, UTP UTP [id number] UT 09:30:00 09:30:00 t; [facility] Physic juana VASCULAR, ans [facility] 2019-01-06 2019-01-06 Appointmen HAAWA, UTP UTP [id number] UT 15:00:00 15:00:00 t; Radha ASTORGA i, M.D. ans SILVIA, M.D. 2019-01-05 2019-01-05 Appointmen GINNY, UTP UTP [id number] UT 13:45:00 13:45:00 t; JHONATAN PETERSEN M.D. Physici BRUCE, ans M.D. 2019-01-03 2019-01-03 Appointmen TONY, [facility] UTP [id number] UT 10:20:00 10:20:00 t; REYES QUINTERO M.D. P hysici MARC, M.D. [facility] 2019-01-02 2019-01-02 Outpatient Ginny [facility] [id number] 06:15:00 12:30:00 Jhonatan Zepeda 23 2019-01-02 2019-01-02 Outpatient [facility] 7523 [facility] 06:15:00 06:15:00 2018-12-28 2018-12-28 Outpatient Farhat, [facility] [id number] 14:09:00 23:59:00 Kyrstal Johnson 22 2018-12-28 2018-12-28 Appointmen GINNY, UTP UTP [id number] UT 15:00:00 15:00:00 t; JHONATAN PETERSEN M.D. Physici BRUCE, ans M.D. 2018-12-28 2018-12-28 Appointmen FARHAT, UTP UTP [id number] UT 14:30:00 14:30:00 t; Donna RICE ans AMIT, M.D. 2018-12-28 2018-12-28 Outpatient [facility] 7522 [facility] 14:09:00 14:09:00 2018-12-28 2018-12-28 Appointmen VASCULAR, UTP UTP [id number] [place] 08:30:00 08:30:00 t; [facility] Physic i VASCULAR, [facility] 2018-12-19 2018-12-21 [facility]patient [facility] [id number] 16:36:00 16:00:00 Suraj Jansen 21 2018-11-28 2018-11-28 Appointmen VASCULAR, UTP UTP [id number] [place] 11:45:00 11:45:00 t; SURGERY Physic i VASCULAR, [facility] SURGERY 2018-11-22 2018-11-22 Appointmen VASCULAR, UTP UTP [id number] [place] 13:30:00 13:30:00 t; SURGERY Physic i VASCULAR, [facility] SURGERY 2018-11-11 2018-11-11 Appointmen OZIEL, UTP UTP [id number] [place] 12:00:00 12:00:00 t; ROSELYN ANN M.D. Physici TODD, M.D. [facility] 2018-11-10 2018-11-10 Outpatient [place] [id number] 05:35:00 23:59:00 w, 20 Justice Jansen 2018-10-27 2018-10-27 Appointmen LENORE-OU UTP UTP [id number] [place] 14:00:00 14:00:00 t; W, Physic i theodore HERNANDEZ M.D. KRISTOFER, M.D. 2018-10-27 2018-10-27 Appointmen VASCULAR, UTP UTP [id number] [place] 12:00:00 12:00:00 t; [facility] Physic i VASCULAR, [facility] 2018-10-17 2018-10-17 Akua SILVA, UTP UTP [id number] [place] 10:00:00 10:00:00 t; Anders SETH M.D. [facility] DORINDA, M.D. 2018-10-14 2018-[facility] UTP [id number] [place] 09:15:00 09:15:00 t; RADHA HOLDEN Phys ici SUMANA, M.D. ans M.D. 2018-09-28 2018-09-28 Outpatient [facility] [id number] 07:40:00 23:59:00 w, 19 Justice Jansen 2018-08-25 2018-08-[facility] UTP [id number] [place] 13:00:00 13:00:00 t; LIVAN MACIEL P hysici CHRISTINE, M.D. ans M.D. 2018-08-15 2018-08-[facility] D[facility], [facility] UTP [id number] [place] 09:30:00 09:30:00 t; Anders SETH M.D. ans RICHARD, M.D. 2018-08-09 2018-08-09 [facility] [id number] [place] 11:15:00 11:15:00 t; W, Physic i theodore HERNANDEZ M.D. KRISTOFER, M.D. 2018-07-27 2018-07-27 Outpatient [facility] [id number] 07:23:00 23:59:00 w, 18 Justice Jansen 2018-07-26 2018-07-[facility] UTP [id number] [place] 13:00:00 13:00:00 t; LIVAN MACIEL P hysici CHRISTINE, M.D. ans M.D. 2018-07-21 2018-07-21 Outpatient [facility] [id number] 11:43:00 23:59:00 Lianet Puente 17 2018-07-19 2018-07-19 [facility] UTP [id number] [place] 10:30:00 10:30:00 t; W, Physic i theodore HERNANDEZ M.D. KRISTOFER, M.D. 2018-07-15 2018-07-[facility] UTP UTP [id number] [place] 09:45:00 09:45:00 t; GODDU, RADHA, Phys ici Donna GARCIA M.D. 2018-07-05 2018-07-05 Appointmen TONY, DANITZA UTP [id number] [place] 10:40:00 10:40:00 t; REYES QUINTERO M.D. P hysici MARC, M.D. ans 2018-06-30 2018-06-30 Appointmen GENERAL, [facility] UTP [id number] [place] 14:00:00 14:00:00 t; SERVICE Physic i GENERAL, ans SERVICE 2018-06-28 2018-06-28 [facility] [id number] Common 16:29:00 16:29:00 t Bone Bone and Spiri t and Joint Joint - [facility] 2018-06-28 2018-06-28 Appointmen JANELL, DANITZA UTP [id number] [place] 13:00:00 13:00:00 t; LIVAN MACIEL P hysici CHRISTINE, M.D. ans M.D. 2018-06-23 2018-06-23 [facility] [id number] Common 11:50:00 11:50:00 t Bone Bone and Spiri t and Joint Joint - [facility] 2018-06-22 2018-06-22 [facility] [id number] Common 08:44:00 08:44:00 t Bone Bone and Spiri t and Joint Joint - [facility] 2018-06-21 2018-06-21 [facility] [id number] Common 13:07:00 13:07:00 t Bone Bone and Spiri t and Joint Joint - [facility] 2018-06-20 2018-06-20 [facility] [id number] Common 10:00:00 10:00:00 t Bone Bone and Spiri t and Joint Joint - [facility] 2018-06-17 2018-06-17 Appointmen MED UTP UTP [id number] [place] 10:00:00 10:00:00 t; MED PROVIDER, Phys ici PROVIDER, TCM ans TCM 2018-06-16 2018-06-16 Appointmen GENERAL, UTP UTP [id number] [place] 13:00:00 13:00:00 t; SERVICE Physic i GENERAL, ans SERVICE 2018-05-22 2018-06-09 Outpatient Patrice Messer [facility] [id number] 22:33:00 21:00:00 45 2018-05-17 2018[facility], [facility] UTP [id number] [place] 13:00:00 13:00:00 t; Donna Woodruff Ph shalom Andrade M.D. 2018-05-11 2018-05-11 [facility] [id number] 10:13:00 23:59:00 Krystal Alex 16 2018-05-11 2018-05-11 [facility] [place], UTP UTP [id number] UT 10:30:00 10:30:00 t; Donna RICE ans AMIT, M.D. 2018-05-10 2018-05-10 Outpatient Ericsson, [facility] [id number] 10:03:00 23:59:00 Davi Ambriz 08 2018-05-03 2018-05-03 [facility] Amaris, [facility] UTP [id number] UT 11:30:00 11:30:00 t; Donna Woodruff Ph shalom Andrade M.D. 2018-04-26 2018-04-26 Appointradha JONES, [facility] UTP [id number] UT 11:00:00 11:00:00 t; Anders TOMLINSON M.D. ans CHARLES, M.D. 2018-04-22 2018-04-22 [facility] NAVIN, [facility] UTP [id number] UT 09:15:00 09:15:00 t; RADHA HOLDEN Phys ici SUMANA, M.D. ans M.D. 2018-04-13 2018-04-13 Outpatient Dougherty, [facility] [id number] 10:18:00 23:59:00 Krystal Alex 15 2018-04-13 2018-04-13 [facility] [place], [facility] UTP [id number] UT 10:30:00 10:30:00 t; Donna RICE ans AMIT, M.D. 2018-03-22 2018-04-05 Outpatient Annita [facility] [id number] 14:47:00 18:30:00 [place] 84 2018-03-24 2018-03-24 [facility] [place], [facility] UTP [id number] [place] 17:00:00 17:00:00 t; Donna RICE ans AMIT, M.D. 2018-03-17 2018-03-17 Appointmen RENUKA, UTP UTP [id number] UT 10:30:00 10:30:00 t; MARYBETH DAVID Phy sici SHEILA, M.D. ans M.D. 2018-03-08 2018-03-08 Appointmen [place]aris, UTP UTP [id number] UT 10:15:00 10:15:00 t; Donna Woodruff shalom Andrade M.D. 2018-02-15 2018-02-15 Appointmen LETY, UTP UTP [id number] UT 12:00:00 12:00:00 t; ADEEL DAVIDSON P hysici CARMISHA, SHIP LINER ans SHIP LINER 2018-02-08 2018-02-08 Appointmen Amaris, UTP UTP [id number] UT 13:45:00 13:45:00 t; Donna Woodruff Ph, ans Jorge, M.D. 2018-01-19 2018-01-19 Appointmen RENUKA, UTP UTP [id number] UT 10:30:00 10:30:00 t; MARYBETH DAVID Phy sici SHEILA, M.D. ans M.D. 2018-01-19 2018-01-19 Appointmen VASCULAR, UTP UTP [id number] UT 09:00:00 09:00:00 t; [place] Physi ci VASCULAR, shalom STEVEN 2018-01-13 2018-01-13 Outpatient Renuka [facility] [id number] 07:12:00 23:59:00 Marybeth Busby 2017-12-27 2017-12-27 Appointmen RENUKA, [facility] [id number] UT 09:00:00 09:00:00 t; MARYBETH DAVID Multi Phy yuan RUEDA M.D. Specialty shalom Thompson 2017-12-09 2017-12-09 Appointmen VASCULAR, UTP [place] [id number] [place] 12:00:00 12:00:00 t; BUREAU Multi Physi ci VASCULAR, Specialty ans BUREAU 2017-12-06 2017-12-06 Appointmen RENUKA, [facility] [id number] UT 10:45:00 10:45:00 t; MARYBETH DAVID Multi Phy yuan RUEDA M.D. Specialty shalom Thompson 2017-11-02 2017-11-02 Outpatient Cole, [facility] [id number] 09:26:00 12:15:00 Riaz Royal 12 2017-10-29 2017-10-29 Outpatient Belen [facility] [id number] 10:35:00 16:50:00 Oh Mariscal 11 2017-10-14 2017-10-14 [facility] BELEN, [facility] UTP [id number] UT 15:00:00 15:00:00 t; OH LOCKETT M.D. Physici KEVIN, ans M.D. 2017-09-27 2017-09-27 Outpatient Belen, [place] [id number] 07:30:00 07:30:00 Oh Mariscal 10 2017-07-08 2017-07-08 Appointradha LOCKETT, DANITZA UTP [id number] UT 14:45:00 14:45:00 t; [place] LOCKETT M.D. Physici KEVIN, ans M.D. 2017-06-07 2017-06-08 Outpatient Leah, [facility] [id number] 18:37:00 02:55:00 Laine Sahu 2017-03-04 2017-03-04 Appointradha LOCKETT, DANITZA UTP [id number] UT 14:15:00 14:15:00 t; OH LOCKETT M.D. Physici KEVIN, ans M.D. 2016-12-31 2016-12-31 AppointDANITZA Ziegler UTP [id number] UT 14:30:00 14:30:00 t; OH LOCKETT M.D. Physici KEVIN, ans M.D. 2016-09-15 2016-09-15 [facility] DANITZA CASTRO UTP [id number] UT 14:00:00 14:00:00 t; FEDERICO CASTRO M.D. Physici ERIK, M.D. ans 2016-09-03 2016-09-03 [facility] DANITZA LOCKETT UTP [id number] UT 14:30:00 14:30:00 t; [place] LOCKETT M.D. Physici KEVIN, ans M.D. 2016-07-14 2016-08-12 Outpatient Belen [facility] [id number] 07:37:00 23:59:00 Oh W 2016-07-03 2016-07-05 Outpatient Kevin Galvez [facility] [id number] 17:32:00 14:45:00 Josephdin 06 2016-06-11 2016-06-11 [facility] DANITZA LOCKETT UTP [id number] UT 14:15:00 14:15:00 t; OH LOCKETT M.D. Physici KEVIN, ans M.D. 2016-05-07 2016-05-07 [facility] DANITZA LOCKETT UTP [id number] UT 14:45:00 14:45:00 t; OH LOCKETT M.D. Physici KEVIN, ans M.D. 2016-02-25 2016-02-25 Outpatient MHIE [place] [id number] [facility] 11:00:00 11:00:00 06 yenny Barba 2016-02-06 2016-02-06 [facility] DANITZA LOCKETT UTP [id number] UT 14:45:00 14:45:00 t; OH LOCKETT M.D. Physici KEVIN, ans M.D. 2016-02-04 2016-02-04 Outpatient Kev, 2.16.840. 2.16.840.1. 3 [id number] 12:46:00 23:59:00 Angie [id number]. [id number] 3.615.30 5.30 2016-02-04 2016-02-04 Outpatient MHIE MHIE [id number] [facility] 11:00:00 11:00:00 05 yenny Jameson 2016-01-20 2016-01-27 Outpatient Benito [facility] [id number] 05:22:00 15:10:00 Baraa 04 2016-01-20 2016-01-20 Outpatient MHIE MHIE [id number] [facility] 08:00:00 08:00:00 04 yenny Jameson 2015-12-31 2015-12-31 Outpatient MHIE MHIE [id number] [facility] 13:30:00 13:30:00 03 yenny Jameson 2015-12-17 2015-12-17 Outpatient MHIE MHIE [id number] [facility] 13:00:00 13:00:00 02 yenny Barba 2015-10-29 2015-10-29 Outpatient MHIE MHIE [id number] [facility] 10:30:00 10:30:00 01 yenny Barba 2015-10-16 2015-10-16 Outpatient Arnaldo Torres MHOIP MHOIP [id number] [id number] 12:01:00 23:59:00 Ranjith 04 2015-10-14 2015-10-14 Outpatient MHIE MHIE [id number] [facility] 10:30:00 10:30:00 00 yenny Barba 2015-06-15 2015-06-17 Outpatient Andrassy, [facility] [id number] 20:02:00 18:00:00 Dorinda Royal 69 2015-04-17 2015-05-16 Outpatient Mckeon, [facility] [id number] 12:45:00 23:59:00 Reena D 00 2015-05-09 2015-05-09 Outpatient Licona, [facility] [id number] 10:40:00 17:00:00 Cirilo Dafne Odilon 2015-04-23 2015-05-01 [facility] [id number] 07:28:00 13:15:00 Dorinda Royal 03 2015-03-28 2015-03-28 Outpatient Andrassy, 2.16.840. 2.16.840.1. [id number] 10:08:00 23:59:00 Dorinda Royal [id number]. [id number] 03 3.615.0.1 5.0.159 92 0516-06-11 2015-02-28 Outpatient Quoc, 2.16.840. 2.16.840.1. [id number] 13:23:00 23:59:00 Frida Alva [id number]. [id number] 02 3.615.0.1 5.0.210 15 2018-03-04 2014-11-21 Outpatient Belen, 2.16.840. 2.16.840.1. 3 [id number] 11:32:00 23:59:00 Oh Mariscal 1.004951. [id number] 01 3.615.0.1 5.0.101 01 Results Test Description Test Time Test Comments Results Result Comments Source POC glucose 2022-02-04 17:57:00 Test Item Value Reference Range Interpretation Comme [facility] POC glucose (test code = 177 mg/dL 65-99 H Ope rator Name: Wally Tadeo [id number]) ID: [id number] hartable: [facility] Notified planning director Interpretation (test code = Abnormal 73999-5) [facility] S[facility] class 1 & 2 [id number] 11:23:11 Test Item Value Reference Range Interpretation Comments Interpretation (test code Additional Antibody = [id number]) Information:1:8 dilutionDQ5=DQB1*05: 01/DQA1*01:011:32 dilutionDQ6=DQB1*06: 01/DQA1*01:03, DQB1*06:03/DQA1*01:0 3, DQB1*06:09/DQA1*01:0 2 Case number (test code = [id number]) Reflex SAB class 1 & 2 See link below for dilutions (test code = PDF Lab Report [id number]) [facility] [id number] 15:34:42 Test Item Value Reference Range Interpretation Comments Six Minute Walk Distance (m) (test 84 m 284.68-562.68 code = 7614) Six Minute Walk Distance Predicted (test code = 5645) Six Minute Walk Distance % Predicted 19.8 % (test code = 5646) SP02 at Rest (test code = 7617) 98 % SP02 at after 1 minute (test code = 96 % 7630) SP02 at after 2 minutes (test code = 97 % 7636) SP02 at after 3 minutes (test code = 98 % 7642) SP02 at after 4 minutes (test code = 97 % 7648) SP02 at after 5 minutes (test code = 97 % 7654) SP02 at after 6 minutes (test code = 97 % 7660) Heart Rate at Rest (test code = 60 1/min 7615) Heart Rate after 1 minute (test code 76 1/min = 7629) Heart Rate after 2 minutes (test 71 1/min code = 7635) Heart Rate after 3 minutes (test 93 1/min code = 7641) Heart Rate after 4 minutes (test 95 1/min code = 7647) Heart Rate after 5 minutes (test 98 1/min code = 7653) Heart Rate after 6 minutes (test 99 1/min code = 7659) Supplemental O2 During Rest (test 0 L/min code = 7624) Supplemental O2 after 1 minute (test 0 L/min code = 7634) Supplemental O2 after 2 minutes 0 L/min (test code = 7640) Supplemental O2 after 3 minutes 0 L/min (test code = 7646) Supplemental O2 after 4 minutes 0 L/min (test code = 7652) Supplemental O2 after 5 minutes 0 L/min (test code = 7658) Supplemental O2 after 6 minutes 0 L/min (test code = 7664) BP Systolic at Rest (test code = mmHg 7622) BP Systolic after 6 minutes (test mmHg code = 7662) BP Diastolic at Rest (test code = mmHg 7623) BP Diastolic after 6 minutes (test mmHg code = 7663) Denny Dyspnea Scale at Rest (test code = 7619) Denny Dyspnea Scale after 6 minutes (test code = 7661) Lowest SpO2 (test code = 7618) 96 % Highest Heart Rate (test code = BPM 7616) Lap Count (test code = 7625) Premature Stop (test code = 7621) Number of Stops (test code = 7626) Gait Speed (test code = 7627) sec Lap Distance in meters (test code = 40 m 7620) Six Minute Walk Distance (ft) (test Feet code = 7665) [facility] [id number] 13:01:12 Test Item Value Reference Range Interpretation Comments Interpretation (test code Additional Antibody = [id number]) Information:A24=A*24 :96PC7=OSB2*01:01/DP A1*02:01 SAB serum ID (test code = [id number]) SAB serum collection D&T 01/29/2022 10:49 AM (test code = 5867) SAB class I antibody A23, A24, A25, A32, assignment (test code = B38, B49, B51, B52, 5870) B53, B57, B58, B59, B63, B77 SAB cPRA class I (test code = 5868) SAB class II antibody DP1, DQ5, DQ6, DR1, assignment (test code = DR7, DR9, DR10, 5871) DR15, DR16, DR51, DR53, DR103 SAB cPRA class II (test code = 5869) Case number (test code = [id number]) Single antigen beads See link below for (test code = 4604) PDF Lab Report [place] [address] [id number] 23:56:28 Test Item Value Reference Range Interpretation Comments Ventricular rate (test code = 253) Atrial rate (test code = 255) NE interval (test code = 266) QRSD interval (test code = 260) QT interval (test code = 264) QTC interval (test code = 265) P axis 1 (test code = 267) QRS axis 1 (test code = 268) T wave axis (test code = 270) EKG impression (test Atrial-sensed code = 273) ventricular-paced rhythm-Abnormal ECG-In automated comparison with ECG of 29-DEC-2021 15:01,-No significant change was found-Electronically Signed By Juan GREENE, [facility] ([id number]) on 01/28/2022 6:56:25 PM [facility]2022-05-10 18:59:01 Test Item Value Reference Range Interpretation Comments POC sodium (test code = 135 mmol/L 346-484 2156-0) POC potassium (test code 4.5 mmol/L 3.5-5.0 = 6298-4) POC chloride (test code = 99 mmol/L 99-109 9-3) POC CO2 (test code = 23 mmol/L 24-31 L 69547-8) POC glucose (test code = 110 mg/dL 65-99 H 2339-0) POC BUN (test code = 74 mg/dL 8-24 H 6299-2) POC creatinine (test code 11.3 mg/dl 0.5-0.9 H = 73666-3) POC hematocrit (test code 37 % 37-47 = 4544-3) POC anion gap (test code 18 mmol/L 8-20 Ope rator Name: = [id number]) Rafael Sánchez DDevice ID: [id number] Lab Interpretation (test Abnormal code = 34361-1) [facility] Hospital[facility], diffusion, lung volumes, [id number] 16:27:56 Test Item Value Reference Range Interpretation Comments VC Pre (test code = 1.4 L 2.02-3.23 5374) VC Predicted (test code = 5372) VC LLN (test code = 5373) VC % Pre of Predicted 53.3 % (test code = 5375) TLC Pre (test code = 3.91 L 3.28-5.26 5416) TLC Predicted (test code = 5414) TLC LLN (test code = 5415) TLC % Pre of Predicted 91.7 % (test code = 5417) RV Pre (test code = 2.52 L 1.25-2.41 5402) RV Predicted (test code = 5400) RV LLN (test code = 5401) RV % Pre of Predicted 137.4 % (test code = 5403) RV % TLC Pre (test 64.26 % 32.15-51.33 code = 5409) RV % TLC Predicted (test code = 5407) RV % TLC LLN (test code = 5408) RV % TLC % Pre of 153.9 % Predicted (test code = 5410) R0.5IN Pre (test code See_Comment [Auto mated message] = 5514) The system [employer] generated this result transmitted ref erence range: 3.06 - 3 .06 cmH2O*s/L. The reference range was not used to interpr et this result as normal/abnormal . R0.5IN Predicted (test code = 5512) R0.5IN LLN (test code = 5513) R0.5IN % Pre of 45.6 % Predicted (test code = 5515) FRCpl Pre (test code = 2.6 L 1.66-3.30 5388) FRCpl % Predicted (test code = 5386) FRCpl % LLN (test code = 5387) FRCpl % Pre of 104.8 % Predicted (test code = 5389) ERV Pre (test code = 0.09 L 0.65-0.65 5381) ERV Predicted (test code = 5379) ERV LLN (test code = 5380) ERV % Pre of Predicted 13.2 % (test code = 5382) IC Pre (test code = 1.31 L 1.56-1.56 5395) IC Predicted (test code = 5393) IC LLN (test code = 5394) IC % Pre of Predicted 84 % (test code = 5396) sR0.5IN Pre (test code cmH2O*s = 5521) Raw Pre (test code = See_Comment [Autom ated message] 5507) The system [employer] generated this result transmitted ref erence range: 3.06 - 3 .06 cmH2O*s/L. The reference range was not used to interpr et this result as normal/abnormal . Raw Predicted (test code = 5505) Raw LLN (test code = 5506) Raw % Pre of Predicted 236 % (test code = 5508) sGaw Predicted (test See_Comment [Autom ated message] code = 5528) The system [employer] generated this result transmitted ref erence range: 0.10 - 0 .10 1/(cmH2O*s). Th e reference range was not used to interpr et this result as normal/abnormal . sGaw Predicted (test code = 5526) sGaw LLN (test code = 5527) sGaw % Pre of 44.3 % Predicted (test code = 5529) FEV1 Pre (test code = 0.89 L 1.48-2.50 5348) FEV1 Predicted (test code = 5302) FEV1 LLN (test code = 5347) FEV1 % Pre of 44.5 % Predicted (test code = 5308) FVC Pre (test code = 1.4 L 2.02-3.23 5354) FVC Predicted (test code = 5307) FVC LLN (test code = 5353) FVC % Pre of Predicted 53.3 % (test code = 5355) FEV1/FVC % Pre (test 63.27 % 66.78-86.37 code = 5361) FEV1/FVC % Predicted (test code = 5359) FEV1/FVC % LLN (test code = 5360) FEV1/FVC % Pre of 82.6 % Predicted (test code = 5362) FEF 25-75% Pre (test 0.41 L/s 0.73-2.90 code = 5547) FEF 25-75% Predicted (test code = 5546) FEF 25-75% LLN (test code = 5545) FEF 25-75% % Pre of 22.7 % Predicted (test code = 5548) PEF Pre (test code = 3.18 L/s 3.76-6.77 5367) PEF Predicted (test code = 5310) PEF LLN (test code = 5366) PEF % Pre of Predicted 60.3 % (test code = 5368) DLCO Pre (test code = See_Comment [Auto mated message] 5423) The system [employer] generated this result transmitted ref erence range: 12.71 - 25.71 ml/(min*mmHg). The reference range was not used to interpr et this result as normal/abnormal . DLCO Predicted (test code = 5421) DLCO LLN (test code = 5422) DLCO % Pre of 39.4 % Predicted (test code = 5424) DLCOc Pre (test code = See_Comment [Aut omated message] 5430) The system [employer] generated this result transmitted ref erence range: 12.71 - 25.71 ml/(min*mmHg). The reference range was not used to interpr et this result as normal/abnormal . DLCOc Predicted (test code = 5428) DLCOc LLN (test code = 5429) DLCOc % Pre of 39.4 % Predicted (test code = 5431) DL/VA Pre (test code = See_Comment [Aut omated message] 5437) The system [employer] generated this result transmitted ref erence range: 3.20 - 5 .84 ml/(min*mmHg*L) . The reference range was not used to interpr et this result as normal/abnormal . DL/VA Predicted (test code = 5435) DL/VA LLN (test code = 5436) DL/VA % Pre of 80 % Predicted (test code = 5438) KCOc SB Pre (test code See_Comment [Aut omated message] = 5535) The system [employer] generated this result transmitted ref erence range: 3.20 - 5 .84 ml/(min*mmHg*L) . The reference range was not used to interpr et this result as normal/abnormal . KCOc SB Predicted (test code = 5533) KCOc SB LLN (test code = 5534) KCOc SB % Pre of 80 % Predicted (test code = 5536) VA SB Pre (test code = 2.09 L 3.30-5.51 5444) VA SB Predicted (test code = 5442) VA SB LLN (test code = 5443) VA SB % Pre of 47.5 % Predicted (test code = 5445) Hb Pre (test code = g(Hb)/dL 5540) MIP Pre (test code = See_Comment [Autom ated message] 5451) The system [employer] generated this result transmitted ref erence range: 23.87 - 81.53 cmH2O. The refe rence range was not u sed to interpret this result as normal/abnor mal. MIP Predicted (test code = 5449) MIP LLN (test code = 5450) MIP % Pre of Predicted 43.7 % (test code = 5452) MEP Pre (test code = See_Comment [Autom ated message] 5458) The system [employer] generated this result transmitted ref erence range: 22.42 - 108.91 cmH2O. The refe rence range was not u sed to interpret this result as normal/abnor mal. MEP Predicted (test code = 5456) MEP LLN (test code = 5457) MEP % Pre of Predicted 102.5 % (test code = 5459) [facility] [id number] 19:21:54 Test Item Value Reference Range Interpretation Comments Interpretation (test code = DRB1*08:JECK=DRB1* [id number]) 08:01/08:105 (DRB1*08:01P)DQB1* 03:CWXZB=DQB1*03:0 09/22:297/03:419 (DQB1*03:01P)DQB1* 04:DXND=DQB1*04:02 /04:87 (DQB1*04:02P)DPB1* 04:HJMR=DPB1*04:01 /126:01(DPB1*04:01 P)DPB1*04:FNVS=DPB 1*04:02/105:01(DPB 1*04:02P) Case number (test code = [id number]) HLA typing (test code = See link below for 7478) PDF Lab Report [facility] [id number] class 1 & 2 [id number] 19:04:10 Test Item Value Reference Range Interpretation Comments Interpretation (test code Unable to analyze = [id number]) due to high background Case number (test code = [id number]) C1Q class 1 & 2 antibody See link below for (test code = 0184230) PDF Lab Report [facility] [id number] and [id number] 01:28:00 Test Item Value Reference Range Interpretation Comments 3A4/3A5 specimen Whole Blood (test code = 19776-7) CY genotype (test Neg/Neg code = 7895) CY genotype (test *3/*3 code = 7896) 3A4/3A5 See Note The following C Y interpretation (test allele( s) were code = 27100-3) detected: Ne g/Neg. This result pre dicts the normal meta bolizer phenotype. The following CYP3A 5 allele(s) were detected: *3/*3 . This result predicts the poor metabolize r phenotype. Recommendation: Guidelines for genotype-based dosing are published b y the Clinical Pharmacogenetic s Implementation Consortium (CPI C) and can be found at : https://www.pha rmgkb.o rg/. This resul t has been reviewed a nd approved by Li Maciel M.D., Ph.D.BACKGROUND INFORMATION: CY and [id number] ISTICS: The cytochrome P450 (CYP) 3A subfam farida of enzymes is invo lved in metabolism of m any drugs. Variants in the genes that code for CY and CY may influence pharmacokinetic s of CYP3A substrate s, and may predict or explain non-standard do se requirements, therapeutic isai lure or adverse reactions.INHER ITANCE: Autosomal codominant.CAUS E: CY or CYP3A 5 gene variants affect enzyme function.VARIAN TS TESTED: (Varian ts are numbered accord ing to [id number] trans cript for CY and [id number] trans cript for CY)Nega tive: No variants det ected is predictive o f *1 functional darrin les (CY and/or CY) CY*1B: rs27 85452, c.-392G>PFTD0A7 *15: mg0179564, c.485G>DEEJ6K5* 22: wj40026941, c.522-191C>TCYP 3A5*3: rx980716, c.219 -237A>G CY*6: yy502 26861, c.624G>A CY *7: oi74701409, c.1035dupCLINIC AL SENSITIVITY: Drug-dependent. METHODO LOGY: Polymeras e chain reaction (PCR) and fluorescence monitoring.ANAL YTICAL SENSITIVITY AND SPECIFICITY: Gr eater than 99 percent.LIMITAT IONS: Only the target ed CY and CY variants will b e detected by thi s panel, and assu mptions about phase and content are mad e to assign alleles. Publicly availa ble sources such as the www.pharmvar.or g or www.pharmgkb.or g provide guidanc e on phenotype predi ctions and allele frequencies. Diagnostic erro rs can occur due to ra re sequence variat ions. Risk of therape utic failure or adve rse reactions with CYP3A substrates may be affected by gen etic and non-genetic factors that ar e not detected by thi s test. This result recio s not replace the nee d for therapeutic mayank g or clinical monitoring.Plea se note the information contained in is report does not contain medicat ion recommendations , and should not be interpreted as recommending an y specific medica tions. Any dosage adju stments or other change s to medications kristel uld be evaluated in consultation wi a medical provide r.This test was develo ped and its performance characteristics determined by [facility]. I t has not been cleare d or approved by the U.S. Food and Drug Administration. This test was perfor med in a CLIA-certifie d laboratory and is intended for cl inical purposes.Counse july and informed co nsent are recommended for genetic testing . Consent forms a re available online.Performe d by [facility], [address] , [facility] [place] [address] [email or web address] , Leandra Crenshaw MD - Lab. Director [place] 24300021-12-07 13:19:00 Test Item Value Reference Range Interpretation Comments GLUBED (test code = GLUBED) 178 MG/DL 70-105 H [id number] 12:54:00 Test Item Value Reference Range Interpretation Comments GLUBED (test code = GLUBED) 127 MG/DL 70-105 H BASIC METABOLIC [id number] 08:59:00 Test Item Value Reference Range Interpretation [...] Range Oct 2020 COVID 19 Asymptomatic IH [id number] 08:45:00 Test Item Value Reference Range Interpretation [...] and symptomsconsist ent with COVID-19. CBC W/AUTO [id number] 08:37:00 Test Item Value Reference Range Interpretation [...] 0.08 x10 3/uL 0.0-0.20 N COMPREHENSIVE METABOLIC [id number] 06:39:00 Test Item Value Reference Range Interpretation [...] ALKP) Reference Range Oct 2020 CBC W/AUTO [id number] 06:35:00 Test Item Value Reference Range Interpretation [...] 0.08 x10 3/uL 0.0-0.20 N BLOOD GAS [id number] 23:13:00 Test Item Value Reference Range Interpretation [...] 26.1 MMOL/L 24-30 N code = TCO2A) PaO2/[id number] 23:13:00 Test Item Value Reference Range Interpretation Comments PaO2/FiO2 (test code = BJN7OVT7) 456.20 >200 BASIC METABOLIC [id number] 04:33:00 Test Item Value Reference Range Interpretation [...] CA) Reference Range Oct 2020 COMPREHENSIVE METABOLIC [id number] 04:33:00 Test Item Value Reference Range Interpretation [...] ALKP) Reference Range Oct 2020 CBC W/AUTO [id number] 04:19:00 Test Item Value Reference Range Interpretation [...] BA#) 0.07 x10 3/uL 0.0-0.20 N LACTIC [id number] 05:17:00 Test Item Value Reference Range Interpretation Comments LACTIC ACID (test code = LACT) 0.70 mmol/L 0.5-2.0 N COMPREHENSIVE METABOLIC [id number] 05:04:00 Test Item Value Reference Range Interpretation [...] ALKP) Reference Range Oct 2020 CBC W/AUTO [id number] 04:16:00 Test Item Value Reference Range Interpretation [...] 0.04 x10 3/uL 0.0-0.20 N BASIC METABOLIC [id number] 12:15:00 Test Item Value Reference Range Interpretation [...] CA) Reference Range Oct 2020 CBC W/AUTO [id number] 11:54:00 Test Item Value Reference Range Interpretation [...] 3/uL 0.0-0.20 N - XR CHEST 1 [id number] 11:21:00 [facility] : 1955 Sex: FPatient Name: DESTINEY PRITCHARD Unit No: [id number] EXAMS: CPT CODE: [id number] XR CHEST 1 V [id number] EXAM: Chest one view. Location: A1 HISTORY: [...] m2): Air Kerma (mGy): Trscr Dt/Tm: 07/16/2021 (1121) by:[email or web address] Printed Date/Time: 07/16/2021 (1124) Name: DESTINEY PRITCHARD [facility] Phys: Dorinda Robles MD [address] : 1955 Age: 66 Sex: [place] [address] Loc: P.0607 1 Exam Date: 07/16/2021 Status: ADM IN PH: FAX: PAGE 1 Signed [id number] 08:41:00 Test Item Value Reference Range Interpretation Comments GLUBED (test code = GLUBED) 156 MG/DL 70-105 H - XR CHEST 1 [id number] 08:06:00 [facility] 1955 Sex: FPatient Name: DESTINEY PRITCHARD Unit No: [id number] EXAMS: CPT CODE: [id number] XR CHEST 1 V 83912 CHEST, SINGLE VIEW DICTATION LOCATION A1 HISTORY: [...] Printed Date/Time: 07/14/2021 (809) Name: DESTINEY PRITCHARD [facility] Phys: Kandace Pretty MD [address] : 1955 Age: 66 Sex: [place] [address] Loc: P.0218 1 Exam Date: 07/14/2021 Status: ADM IN PH: FAX: PAGE 1 Signed ReportBASIC METABOLIC [id number] 04:46:00 Test Item Value Reference Range Interpretation [...] CA) Reference Range Oct 2020 COMPREHENSIVE METABOLIC [id number] 04:46:00 Test Item Value Reference Range Interpretation [...] code = ALKP) Reference Range Oct 2020 [id number] 04:46:00 Test Item Value Reference Range Interpretation Comments PHOSPHOROUS (test code 6.5 mg/dL 2.4-5.1 H Pleas e note: New = PHOS) Reference Range Oct 2020 [id number] 04:46:00 Test Item Value Reference Range Interpretation Comments MAGNESIUM (test code = 1.9 mg/dL 1.6-2.6 N Pleas e note: New MAG) Reference Range Oct 2020 CBC W/AUTO [id number] 04:19:00 Test Item Value Reference Range Interpretation [...] = BA#) 0.01 x10 3/uL 0.0-0.20 N [id number] 01:37:00 Test Item Value Reference Range Interpretation Comments GLUBED (test code = GLUBED) 166 MG/DL 70-105 H [id number] 20:07:00 Test Item Value Reference Range Interpretation Comments GLUBED (test code = GLUBED) 174 MG/DL 70-105 H [id number] 11:36:00 Test Item Value Reference Range Interpretation Comments GLUBED (test code = GLUBED) 181 MG/DL 70-105 H [id number] 07:45:00 Test Item Value Reference Range Interpretation Comments GLUBED (test code = GLUBED) 192 MG/DL 70-105 H - XR CHEST 1 [id number] 07:04:00 [facility] : 1955 Sex: FPatient Name: DESTINEY PRITCHARD Unit No: [id number] EXAMS: CPT CODE: [id number] XR CHEST 1 V 60400 Chest one view portable 07/13/2021 CLINICAL INDICATION: [...] Printed Date/Time: 07/13/2021 (706) Name: DESTINEY PRITCHARD [facility] Phys: Kandace Pretty MD [address] : [birth year] Age: 66 Sex: [place] [address] Loc: P.0218 1 Exam Date: 07/13/2021 Status: ADM IN PH: FAX: PAGE 1 Signed ReportBASIC METABOLIC [id number] 04:25:00 Test Item Value Reference Range Interpretation [...] CA) Reference Range Oct 2020 COMPREHENSIVE METABOLIC [id number] 04:25:00 Test Item Value Reference Range Interpretation [...] code = ALKP) Reference Range Oct 2020 [id number] 04:25:00 Test Item Value Reference Range Interpretation Comments PHOSPHOROUS (test code 5.4 mg/dL 2.4-5.1 H Pleas e note: New = PHOS) Reference Range Oct 2020 [id number] 04:25:00 Test Item Value Reference Range Interpretation Comments MAGNESIUM (test code = 1.8 mg/dL 1.6-2.6 N Pleas e note: New MAG) Reference Range Oct 2020 CBC W/AUTO [id number] 04:04:00 Test Item Value Reference Range Interpretation [...] = BA#) 0.02 x10 3/uL 0.0-0.20 N [id number] 03:32:00 Test Item Value Reference Range Interpretation Comments GLUBED (test code = GLUBED) 194 MG/DL 70-105 H BASIC METABOLIC [id number] 15:08:00 Test Item Value Reference Range Interpretation [...] note: New CA) Reference Range Oct 2020 [id number] 15:08:00 Test Item Value Reference Range Interpretation Comments PHOSPHOROUS (test code 5.0 mg/dL 2.4-5.1 N Pleas e note: New = PHOS) Reference Range Oct 2020 [id number] 15:08:00 Test Item Value Reference Range Interpretation Comments MAGNESIUM (test code = 1.5 mg/dL 1.6-2.6 L Pleas e note: New MAG) Reference Range Oct 2020 CBC W/AUTO [id number] 14:13:00 Test Item Value Reference Range Interpretation [...] 0.04 x10 3/uL 0.0-0.20 N BLOOD GAS [id number] 08:59:00 Test Item Value Reference Range Interpretation [...] 22.3 MMOL/L 24-30 L code = TCO2A) PaO2/[id number] 08:59:00 Test Item Value Reference Range Interpretation Comments PaO2/FiO2 (test code = [id number]) 672.10 >200 - XR CHEST 1 [id number] 07:31:00 [facility] : 1955 Sex: FPatient Name: DESTINEY PRITCHARD Unit No: [id number] EXAMS: CPT CODE: [id number] XR CHEST 1 V 69002 Chest one view AP 07/12/2021 7:30 AM CLINICAL INDICATION: Pacemaker COMPARISON: 07/10/2021 LOCATION: W1 IMPRESSION: A tunneled right hemodialysis catheter is present. Cardiomediastinal contoursare stable. The central pulmonary vasculature is not engorged. The lungs are well aerated. at 0731 Reported and signed by: AMANDA CRUZ M.D. CC: Justice Marsh MD; Kandace Zarate MD Technologist: Venice Hanson Time: DAP (Gy m2): Air Kerma (mGy): Trscr Dt/Tm: 07/12/2021 (0731) by:[email or web address] Printed Date/Time: 07/12/2021 (7034) Name: DESTINEY PRITCHARD [facility] Phys: Kandace Pretty MMD [address] : 1955 Age: 66 Sex: [place] [address] Loc: P.0218 1 Exam Date: 07/12/2021 Status: ADM IN PH: FAX: PAGE 1 Signed ReportCBC W/AUTO [id number] 06:47:00 Test Item Value Reference Range Interpretation Comments WHITE BLOOD CELL (test 11.6 x10 3/uL 4.8-10.8 H code = WBC) RED BLOOD CELL (test 2.14 x10 6/uL 4.20-5.40 L code = RBC) HEMOGLOBIN (test code 6.4 g/dL 12.0-16.0 LL Critic al Value = HGB) reported [facility] t Name:EWELINA white Name:DANA LACY S READ BACK AND VERIFIEDby P.LAB.CHEN, on 07/12/21, [...] 3/uL 0.0-0.20 N = BA#) BASIC METABOLIC [id number] 06:06:00 Test Item Value Reference Range Interpretation [...] CA) Reference Range Oct 2020 COMPREHENSIVE METABOLIC [id number] 06:06:00 Test Item Value Reference Range Interpretation [...] code = ALKP) Reference Range Oct 2020 [id number] 06:06:00 Test Item Value Reference Range Interpretation Comments PHOSPHOROUS (test code 4.7 mg/dL 2.4-5.1 Pleas e note: New = PHOS) Reference Range Oct 2020 [id number] 06:06:00 Test Item Value Reference Range Interpretation Comments MAGNESIUM (test code = 1.4 mg/dL 1.6-2.6 L Pleas e note: New MAG) Reference Range Oct 2020 T3 [id number] 01:48:00 Test Item Value Reference Range Interpretation Comments T3 FREE (test Test not performed 3.0-4.7 L Previous ly reported code = T3F) pg/mL result: 1.66 pg/mLEdited by: TANIKA on 07/12/21:0146 T4 [id number] 01:48:00 Test Item Value Reference Range Interpretation Comments T4 FREE (test Test not performed 0.89-1.76 N Previous ly reported code = T4F) ng/dL result: 1.69 ng/dLEdited by: TANIKA on 07/12/21:147 THYROID STIMULATING [id number] 01:48:00 Test Item Value Reference Range Interpretation Comments THYROID STIMULATING Test not 0.55-4.78 H Previous ly HORMONE (test code performed mIU/mL repor barbara result: = TSH) 5.68 mIU/mLEdit ed by: TANIKA o n 07/12/21:147 [id number] 01:48:00 Test Item Value Reference Range Interpretation Comments CORTISOL (test Test not performed Previou sly reported code = CORTR) mcg/dL result: 6.05 mcg/dLEdited by : TANIKA on 07/12/21:147 T3 [id number] 01:46:00 Test Item Value Reference Range Interpretation Comments T3 FREE (test code 1.66 pg/mL 3.0-4.7 L Please no te: New = T3F) Reference Range Oct 2020 T4 [id number] 01:46:00 Test Item Value Reference Range Interpretation Comments T4 FREE (test code 1.69 ng/dL 0.89-1.76 N Please no te: New = T4F) Reference Range Oct 2020 THYROID STIMULATING [id number] 01:46:00 Test Item Value Reference Range Interpretation Comments THYROID STIMULATING 5.68 mIU/mL 0.55-4.78 H Please n ote: New HORMONE (test code = Referen ce Range Oct TSH) 2020 [id number] 01:46:00 Test Item Value Reference Range Interpretation Comments CORTISOL (test code 6.05 mcg/dL ~~~~~~~~ ~~~~~~~~~~~~~~ = CORTR) ~~~~~~~~~~~~~~~ ~~~~~~R EFERENCE RANGE NOT ESTABLISHED WHE N NOT DRAWN CORTIS OL AM OR CORTISOL PM.~~~~~~~~~~~~ ~~~~~~~ ~~~~~~~~~~~~~~~ ~~~~~~~ ~~ Covid 19 InHouse [id number] 11:17:00 Test Item Value Reference Range Interpretation Comments Covid 19 Negative Negative A negative resu lt does not InHouse NTX preclude the SA RS-COV-2 (test code = viralinfection and should not be [id number]) used as the so le basis forpatient stephani gement decisions. Negative result s must becombined with clinical o bservations, patient history , andepidemiologi fabián information. Viral levels in clinicalsamples below the detec tion limit of the assay could jesus d tonegative results. This t est was performed using the LogF[employer] SmartTM COVID-19 PCRassay. This test was developed and i ts performancechar acteristics were determined by Justyna young [facility]. Thi s test has notbeen FDA maddison [...] care setting? No? NoAge at collection: YPROTHROMBIN [id number] 08:23:00 Test Item Value Reference Range Interpretation [...] 2.5-3.5recurren t systemic emboli sm. CBC W/AUTO [id number] 08:16:00 Test Item Value Reference Range Interpretation [...] 0.04 x10 3/uL 0.0-0.20 N BASIC METABOLIC [id number] 05:05:00 Test Item Value Reference Range Interpretation [...] CA) Reference Range Oct 2020 COMPREHENSIVE METABOLIC [id number] 05:05:00 Test Item Value Reference Range Interpretation [...] code = ALKP) Reference Range Oct 2020 [id number] 05:05:00 Test Item Value Reference Range Interpretation Comments PHOSPHOROUS (test code 6.4 mg/dL 2.4-5.1 H Pleas e note: New = PHOS) Reference Range Oct 2020 [id number] 05:05:00 Test Item Value Reference Range Interpretation Comments MAGNESIUM (test code = 1.5 mg/dL 1.6-2.6 L Pleas e note: New MAG) Reference Range Oct 2020 [id number] 22:27:00 Test Item Value Reference Range Interpretation Comments GLUBED (test code = GLUBED) 146 MG/DL 70-105 H - DUP VEIN [id number] 16:20:00 [facility] : 1955 Sex: FPatient Name: DESTINEY PRITCHARD Unit No: [id number] EXAMS: CPT CODE: [id number] DUP VEIN CALVIN 43849 Exam:Bilateral upper extremity duplex venous ultrasound Location: [...] mid and distal aspects of the upper arm.The cephalic vein measures 5 mm within the [...] antecubital fossae. at 1620 Reported and signed by:Laine Murphy MD CC: Justice Marsh MD; Kandace Zarate MD; Hawa Kumari Technologist: Cheyenne Varela Probe: Trscr Dt/Tm: 07/10/2021 (1620) by:[email or web address] Printed Date/Time: 07/10/2021(1623) Name: DESTINEY PRITCHARD [facility] Phys: Hawa Kumari [address] : 1955 Age: 66 Sex: [place] [address] Loc: P.0218 1 Exam Date: 07/10/2021 Status: ADM IN PH: FAX: PAGE 1 Signed Report- XR CHEST 1 [id number] 13:51:00[facility] : 1955 Sex: FPatient Name: DESTINEY PRITCHARD Unit No: [id number] EXAMS: CPT CODE: [id number] XR CHEST 1 V 66082 CHEST, SINGLE VIEW DICTATION LOCATION A1 HISTORY: [...] Singh MD; Kandace Zarate MD Technologist: Jazmine Alves Time: DAP (Gy m2): Air Kerma (mGy): Trscr Dt/Tm: 07/10/2021 (1351) by:Cookie Printed Date/Time: 07/10/2021 (0334) Name: DESTINEY PRITCHARD [facility] Phys: CALEB - Benjamin Singh MD [address] : 1955 Age: 66 Sex: F [id number] Loc: P.0218 1 Exam Date: 07/10/2021 Status: ADM IN PH: FAX: PAGE 1 Signed [id number] 12:32:00 Test Item Value Reference Range Interpretation Comments GLUBED (test code = GLUBED) 125 MG/DL 70-105 H [id number] 10:11:00 Test Item Value Reference Range Interpretation Comments TROPONIN-I (test 415.3 pg/mL 27.36-66.23 HH Critical Va lue reported code = TROPI) toFirst Name:Lele MANNING Last Name:AFSHAN PONCE READ BACK AND Kaleb IngramLAB.CK, on , @ 1011.Please not e: Units and Reference R uzma have changedFeb 3, 2 021 Spec Comments: from morning blood sampleBASIC METABOLIC [id number] 05:22:00 Test Item Value Reference Range Interpretation [...] note: New CA) Reference Range Oct 2020 [id number] 05:22:00 Test Item Value Reference Range Interpretation Comments PHOSPHOROUS (test code 4.4 mg/dL 2.4-5.1 Pleas e note: New = PHOS) Reference Range Oct 2020 PARATHYROID [id number] 04:44:00 Test Item Value Reference Range Interpretation Comments PARATHYROID HORMONE 213.5 pg/mL 18.4-80.1 H Please n ote: New (test code = PTH) Reference Range Oct 2020 CBC W/AUTO [id number] 04:22:00 Test Item Value Reference Range Interpretation [...] x10 3/uL 0.0-0.20 N AB HEPATITIS B [id number] 02:35:00 Test Item Value Reference Range Interpretation Comments AB HEPATITIS B SURFACE (test code = REACTIVE Nonreactive A HBSAB) AG HEPATITIS B [id number] 02:35:00 Test Item Value Reference Range Interpretation Comments AG HEPATITIS B SURFACE (test code Nonreactive Nonreactive = HBSAG) AB HEPATITIS B [id number] 02:35:00 Test Item Value Reference Range Interpretation Comments AB HEPATITIS B CORE (test code = Nonreactive Nonreactive HBCAB) AB HEPATITIS [id number] 02:35:00 Test Item Value Reference Range Interpretation Comments AB HEPATITIS C (test code = Nonreactive Nonreactive HCVAB) PROTHROMBIN [id number] 18:20:00 Test Item Value Reference Range Interpretation [...] 2.5-3.5recurren t systemic emboli sm. THROMBOPLASTIN TIME [id number] 18:20:00 Test Item Value Reference Range Interpretation Comments THROMBOPLASTIN TIME 27.3 SECONDS 23.8-34.8 N INTERPRE TATIVE PARTIAL (test code = DATA:Th erapeutic PTT) range: Unfractionated heparin:55 - 80 seconds Argatroban:1.5 to 3 times the basel ine PTT CBC W/AUTO [id number] 18:14:00 Test Item Value Reference Range Interpretation [...] 0.05 x10 3/uL 0.0-0.20 N BLOOD GAS W/[id number] 17:58:00 Test Item Value Reference Range Interpretation [...] 23.5 MMOL/L 24-30 L code = TCO2A) PaO2/[id number] 17:58:00 Test Item Value Reference Range Interpretation Comments PaO2/FiO2 (test code = GJQ5IWT7) 300.90 >200 COVID 19 Asymptomatic IH [id number] 17:32:00 Test Item Value Reference Range Interpretation [...] beconsidered in the context of a pa tieysabel's recent exposure s,history and the presenc e of clinical signs and symptomsconsist ent with COVID-19. BASIC METABOLIC [id number] 17:20:00 Test Item Value Reference Range Interpretation [...] note: New CA) Reference Range Oct 2020 [id number] 17:20:00 Test Item Value Reference Range Interpretation Comments PHOSPHOROUS (test code 7.9 mg/dL 2.4-5.1 H Pleas e note: New = PHOS) Reference Range Oct 2020 [id number] 17:20:00 Test Item Value Reference Range Interpretation Comments MAGNESIUM (test code = 1.7 mg/dL 1.6-2.6 N Pleas e note: New MAG) Reference Range Oct 2020 PROTHROMBIN [id number] 17:07:00 Test Item Value Reference Range Interpretation [...] 2.5-3.5recurren t systemic emboli sm. THROMBOPLASTIN TIME [id number] 17:07:00 Test Item Value Reference Range Interpretation Comments THROMBOPLASTIN TIME 30.2 SECONDS 23.8-34.8 N INTERPRE TATIVE PARTIAL (test code = DATA: erapeutic PTT) range: Unfractionated heparin:55 - 80 seconds Argatroban:1.5 to 3 times the basel ine PTT CBC W/AUTO [id number] 15:20:00 Test Item Value Reference Range Interpretation [...] 3/uL 0.0-0.20 N RECOLLECT- XR CHEST 1 [id number] 14:41:00 [facility] : 1955 Sex: FPatient Name: DESTINEY PRITCHARD Unit No: [id number] EXAMS: CPT CODE: [id number] XR CHEST 1 V 35154 Single View Chest. Location: W1 Clinical Indication: 66-year-old with weakness Comparison: None Impression: Lungs are grossly clear. There is mild enlargement of heart. A right IJ tunneled hemodialysis catheter is present. No acute osseous abnormality. at 1441 Reported and signed by: Laine Murphy MD CC: Justice Marsh MD; Jose G Cain MD Technologist: Adolfo Puente Fluoro Time: DAP (Gy m2): Air Kerma (mGy): Trscr Dt/Tm: 07/09/2021 (1441) by:[email or web address] Printed Date/Time: 07/09/2021 (1444) Name: FRANHCESKADESTINEYGILSON MILTON [facility] Phys: Jose G Fragoso MD [address] : 1955 Age: 66 Sex: [place] [address] Loc: SHERRIIC 1 Exam Date: 07/09/2021 Status: ADM IN PH: FAX: PAGE 1 Signed ReportBASIC METABOLIC PANEL 2021-07-09 14:23:00 Test Item Value Reference Range Interpretation [...] note: New CA) Reference Range Oct 2020 [id number] 14:23:00 Test Item Value Reference Range Interpretation Comments PHOSPHOROUS (test code 8.5 mg/dL 2.4-5.1 H Pleas e note: New = PHOS) Reference Range Oct 2020 [id number] 14:23:00 Test Item Value Reference Range Interpretation Comments MAGNESIUM (test code = 1.7 mg/dL 1.6-2.6 N Pleas e note: New MAG) Reference Range Oct 2020 THYROID STIMULATING [id number] 14:23:00 Test Item Value Reference Range Interpretation Comments THYROID STIMULATING 31.47 mIU/mL 0.55-4.78 H Please n ote: New HORMONE (test code = Referen ce Range Oct TSH) 2020 [id number] 14:17:00 Test Item Value Reference Range Interpretation Comments TROPONIN-I (test 285.7 pg/mL 27.36-66.23 HH Critical Va lue reported code = TROPI) toFirst Name:Vinod JOHNSON Last Name:TANMAY ARCE READ BACK AND VENKATA HOOVERCHEN, on , @ 3031.Please not e: Units and Reference R uzma have changedFeb 3, 2 021 T4, [id number] 06:45:00 Test Item Value Reference Range Interpretation Comments T4, free (test code 1.6 ng/dL 0.8-1.8 = 3024-7) KENDRICK (test code = FASTING:NO FASTING: NO KENDRICK) RAC (test code = Performing Organization RAC) Information: Site ID: RGA [facility] Address: [address] [place] [address] Director: Laine Matthew [facility] HospitalThyroid stimulating [id number] 06:45:00 Test Item Value Reference Range Interpretation Comments TSH (test See_Comment [Automated mes david] code = The system [facility] h 3016-3) generated this result transmit barbara reference range : 0.40 - 4.50 mIU /L. The reference r uzma was not used to interpret this result as normal/abnormal . KENDRICK (test FASTING:NO FASTING: code = KENDRICK) NO RAC (test Performing code = RAC) Organization Information: Site ID: TYESHA Name: [facility] Address: [address] [place] [address] Director: Laine Matthew [facility] [id number] 06:45:00 Test Item Value Reference Range Interpretation Comments T3 (test code = 102 ng/dL 76-181 3053-6) KENDRICK (test code = FASTING:NO FASTING: NO KENDRICK) RAC (test code = Performing Organization RAC) Information: Site ID: TYESHA Name: [facility] Address: [address] [place] [address] Director: Laine Matthew [place] [address], [id number] 12:00:00 Test Item Value Reference Range Interpretation Comments T4, FREE (test code 1.4 ng/dL 0.8-1.8 = 3024-7) RAC (test code = Performing Organization RAC) Information: ? ?Site ID: TYESHA ? ?Name: [facility] ? ?Address: [address] [place] [address] ? ?Director: LAINE MATTHEW MD [place] [id number] 12:00:00 Test Item Value Reference Range Interpretation Comments TSH (test code = See_Comment H REPORT 3016-3) COMMENT:FASTING :Y ES [Automated message] The system which generated this result transmitted reference range : 0.40 - 4.50 mIU/L. The reference range was not used to interpret this result as normal/abnormal . RAC (test code = Performing RAC) Organization Information: ? ?Site ID: RGA ? ?Name: [facility] ? ?Address: [address] [place] [address] ? ?Director: LAINE MATTHEW MD Lab Interpretation Abnormal (test code = 65018-2) [facility] [id number] 16:23:20 Test Item Value Reference Range Interpretation Comments POC glucose (test code 129 mg/dL 65-99 H Opera tor Name: = 92216-1) Bryan Roberts evice ID: [id number] able: [facility] Notified planning director Interpretation Abnormal (test code = 28875-3) [facility] 12 [id number] 22:11:37 Test Item Value Reference Range Interpretation Comments Ventricular rate (test code = 253) Atrial rate (test code = 255) NE interval (test code = 266) QRSD interval [...] ECGs available- [facility] HospitalTransoracic Echocardiogram Complete, (w Contrast, Strain and 3D if needed)2021-02-22 22:40:00 Echocardiography Report [address] [place] [address] Pat.Name: DESTINEY PRITCHARD Pat.ID: [id number] .Date: 02/22/2021 Refer.MD: THI SIERRA MD Exam Time: 4:27:00 PM Study Type:Routine Echo Height: 60in Weight: 200.58lb BSA: 1.87 m2 Age: 8 1955,65Y Sex: FEMALE BP: 76/42 HR:52 bpm Sonogrphr: nancy Woodruff Pat. Stat.:Inpatient Study Status:Final Echo Event ID:[id number] Order ID: [id number] Reason for Study:Valvular disease-initial evalHistory / Clinical:Valvular Heart Disease; Aortic StenosisProcedures: 2D Echo, 2D Echo, Colorflow DopplerRace: C SUMMARY: LV EF is hyperdynamic. Estimated EF is >70%.RV systolic function is normal.Moderate calcific aortic/mitral valve stenosis.Valvular high velocityand pressure gradient is secondary to high flowstate and calcific valvular stenosis. FINDINGS: LV: LV size is normal. There is mildconcentric LV hypertrophy. LV EF is hyperdynamic. Overall wall motion is hyperdynamic. Estimated EFis >70%.RV: RV size is mildly enlarged. RV systolic function is normal.LA: LA volume is moderately to severely enlarged.RA: RA volume is enlarged.AO: Aortic root diameter is grossly normal in size. Calcifications in ascending aorta.SEDRICK: No pericardial effusion. There is an anterior space consistent with a prominent epicardial fat pad.IAS: Interatrial septum is thickened consistent with lipomatoushypertrophy. This is a normal variant commonly seen.AV: Severe thickening and calcification of AV jesus flets. Moderate aortic valve stenosis. Estimated mean aortic [...] high flow state and valvular stenosis.PV: Pulmonic valvenot well seen.TV: No structural TV abnormalities noted. A trace of tricuspid regurgitation Shaw: Unab le to assess diastolic function due to presence of mitral stenosis.Other: Insufficient TR jet to estimate PA systolic pressure. MEASUREMENTS: 2DParasternal Long [place] Ao An 1.5 cm LVPWd 1.3 cm [...] - 02/22/2021 5:41 PM CDT Echocardiography Report [address] [address] Pat.Name: FRANCHESKA DESTINEY L Pat.ID: [id number] .Date: 02/22/2021 Refer.MD: THI SIERRA MD Exam Time: 4:27:00 PM Study Type:Routine Echo Height: 60in Weight: 200.58lb BSA: 1.87 m2 Age: 8 1955,65Y Sex: FEMALE BP: 76/42 HR: 52 bpm Sonogrphr: nancy Woodruff Stat.:Inpatient Study Status:Final Echo Event ID:[id number] Order ID: [id number] Reason for Study:Valvular disease-initial evalHistory / Clinical:Valvular Heart Disease; Aortic StenosisProcedures: 2D Echo, 2D Echo, Colorflow DopplerRace: C SUMMARY: LV EF is hyperdynamic. Estimated EF is >70%.RV systolic function is normal.Moderate calcific aortic/mitral valvestenosis.Valvular high velocity and pressure gradient is secondary [...] Calcifications in ascending aorta.SEDRICK: No pericardial effusion. Thereis an anterior space consistent with a prominent epicardial fat pad.IAS: Interatrial septum is thickened consistent with lipomatous hypertrophy. This is a normal variant commonly seen.AV: Severe thickening and calcification of AV leaflets. Moderate aortic valve stenosis. Estimated mean aortic valve gradient 31 mmHg with a valve area of 1 cm2 (DVI 0.4). Aortic valve high velocity and pressure gradientis secondary to high flow state and valvular stenosis.MV: Moderate to severe thickening and calcification of mitral leaflets. Thickened and/or calcified mitral annulus. Thickened and/or calcified chordae. Moderate calcific mitral stenosis. Estimated mean mitral valve gradient 9 mmHg at a heart rate of56 b/min. Mitral valve high velocity and pressure gradient is secondary to high flow state and valvular stenosis.PV: Pulmonic valve not well seen.TV: No structural TV abnormalities noted. A trace of tricuspid regurgitation Shaw: Unable to assess diastolic function due to presence of mitral stenosis.Other: Insufficient TR jet to estimate PA systolic pressure. MEASUREM ENTS: 2DParasternal Long [place] Ao An 1.5 cm LVPWd 1.3 cm Ao Rtd 2.8 cm Index 1.5 cm/m2 LA Ds 4.9 cm IVSd 1.3 cm RWT 0.61 LVIDd 4.2 cm Index 2.2 cm/m2 LV Mass 190 g (87-129)* LVIDs 2.1 cm LVM Index 102 g/m2 LV%fs 50 % LA Sng Plane LA Area 27 cm2 (8.8-23.4)* LA Vol 83ml Index 45 ml/m2 LA LngAx 7.2 cm [...] Dec T 609 msec Signed 02/22/2021 05:40 PMBindu Ivonne [facility] NEED PHYS SKILL,DX OR RX 2021-02-22 19:33:29Cirilo [...] sterile technique followed Skin preparation: ChloraPrep Skin preparation agent: Dried prior to procedure Anesthesia (see MAR [...] Catheter Length (cm): 9 Catheter Lot Number: [id number] Catheter Expiration Date: 1Procedure details: Landmarks identified: yes Ultrasound guidance: yes Sterile ultrasound techniques: Sterile gel and sterile probe covers were used Number ofattempts: 1 Number of MidLine kits used during procedure: 1 Extra guide wire required?: No Purpose of procedure: Midline Placement Patency/Placement: Flushes without difficulty, flushed with 10 mL normal saline, positive blood return, injection cap placed and ultrasound MidLine placed utilizing ultrasound-guided Modified Seldinger Technique: Yes Dressing/Securement: Catheter securement device and antimicrobial dressing applied Blood Loss Amount: Less than 20 mLPost-procedure details: Post-procedure:Dressing applied Patient tolerance of procedure: Tolerated well, no immediate complicationsXR Chest 1 [id number] 01:03:12EXAMINATION: XR CHEST 1 PORTABLE CLINICAL HISTORY: 65 years Female SOB COMPARISON: December 02 IMPRESSION: Cardiomediastinal silhouette is unchanged. Atelectasis in the lung bases Age related changes in the osseous structures. Right central venous catheter the tip of the catheter terminating the superior vena cava. No pneumothorax . Interface, Radiology Results Incoming - 02/21/2021 8:06 PM CDT EXAMINATION: XR CHEST 1 PORTABLECLINICALHISTORY: 65 years Female SOBCOMPARISON: December 02IMPRESSION:Cardiomediastinal silhouette is unchanged. Atelectasis in the lung bases Age related changes in the osseous structures.Right central venous catheter the tip of the catheter terminating the superior vena cava. No pneumothorax.[facility] ED Preliminary Interpretation - Not an [id number] 22:49:06 Test Item Value Reference Range Interpretation Comments KENDRICK (test code = KENDRICK) See Carr DO 02/25/2021 9:26 [facility] ED Preliminary Interpretation - Not an OrderPerformed by: See Carr DOAuthorized by: See Carr DO ECG reviewed by ED Physician in the absence of a alto singer: yes Interpretation: Interpretation: abnormal Rate: ECG rate: 59 ECG rate assessment: bradycardic Rhythm: Rhythm: sinus bradycardia and A-V block QRS: QRS axis: Normal QRS intervals: NormalConduction: Conduction: abnormal Abnormal conduction: 1st degree and non-specific intraventricular conduction delay ST segments: ST segments: NormalT waves: T waves: normal Lab Interpretation Abnormal (test code = 25330-2) [facility]- XR FLUOROSCOPY 0-60 [id number] 15:51:00 [facility] : 1955 Sex: FPatient Name: DESTINEY PRITCHARD Unit No: [id number] EXAMS: CPT CODE: [id number] XR FLUOROSCOPY 0-60 MIN 58236 Exam:Fluoroscopy for fistulogram Location: W1 Clinical Indication:65-year-old [...] m2): Air Kerma (mGy): Trscr Dt/Tm: 02/03/2021 (1551) by:[email or web address] Printed Date/Time: 05/19/2022 (0927) Name: DESTINEY PRITCHARD [facility] Phys: CHAKR.Duke Santana [address] : 1955 Age: 65 Sex: [place] [id number] Loc: P.0602 1 Exam Date: 01/31/2021 Status: DIS IN PH: FAX: PAGE 1 Signed ReportBASIC METABOLIC [id number] 04:58:00 Test Item Value Reference Range Interpretation [...] Critical Va lue code = CREAT) reported [facility] Name:KOLTON Danya duarte Name:ANGELICA LAMBERT READ BACK AND VERIFIEDby ALEXANDRA MADRID, on 02/01/21, @ 4176.Please not e: New Reference Range Oct 2020 CALCIUM (test code = 8.8 mg/dL 8.7-10.4 N Please note: New CA) Reference Range Oct 2020 CBC W/AUTO [id number] 04:35:00 Test Item Value Reference Range Interpretation [...] x10 3/uL 0.0-0.20 N AB HEPATITIS B [id number] 16:51:00 Test Item Value Reference Range Interpretation Comments AB HEPATITIS B SURFACE (test code = REACTIVE Nonreactive A HBSAB) AG HEPATITIS B [id number] 16:51:00 Test Item Value Reference Range Interpretation Comments AG HEPATITIS B SURFACE (test code Nonreactive Nonreactive = HBSAG) AB HEPATITIS B [id number] 16:51:00 Test Item Value Reference Range Interpretation Comments AB HEPATITIS B CORE (test code = Nonreactive Nonreactive HBCAB) AB HEPATITIS [id number] 16:51:00 Test Item Value Reference Range Interpretation Comments AB HEPATITIS C (test code = Nonreactive Nonreactive HCVAB) [id number] 13:26:00 Test Item Value Reference Range Interpretation Comments GLUBED (test code = GLUBED) 125 MG/DL 70-105 H BASIC METABOLIC [id number] 11:40:00 Test Item Value Reference Range Interpretation [...] rate . CREATININE (test 14.50 mg/dL 0.55-1.02 Critical Ca lue code = CREAT) reported toFir st Name:JOSE RAMON Last Name:CAYLA CANCHOLA READ BACK AND VENKATA Roberson P.LAB.CAR1, on 01/31/21, @ 1136.Please not e: New Reference Range Oct 2020 CALCIUM (test code = 8.2 mg/dL 8.7-10.4 L Please note: New CA) Reference Range Oct 2020 MA Digital Mammo Screen Calvin w mary [id number] 12:03:00BILATERAL DIGITAL SCREENING MAMMOGRAM 3D/2D WITH CAD: [...] mammogram is recommended.(01/01/2022) This exam was interpreted [id number] for [facility]. David Feng M.D. eal/penrad:12/31/2020 14:55:47 Teaching Supervisor(s): Candida Da Silva [facility] sent: BI-RADS 1/2 Mammogram BI-RADS: 2 Benign--Read by: David Feng MDDictated Date/time: 12/31/20 14:55Electronically Signed by: David Feng MD 12/31/2113:55FINAL REPORTUT PhysiciansUS Pelvis with Pelvis Transvaginal [id number] 11:23:00PROCEDURE INFORMATION:Exam: US Pelvis Complete, Transabdominal and [...] visualized.An MRI or CT with IV contrast canbetter evaluate for vulvar abscess orBartholin cyst.Bimal Esquivel MD On 12/31/2020 13:15:38; [id number]--Ycsa by: Bimal Esquivel MDDictated Date/time: 12/31/20 13:17Electronically Signed by: Bimal Esquivel MD 12/31/2112:17FINAL REPORTUT [id number] 18:03:00 Test Item Value Reference Range Interpretation Comments GLUBED (test code = GLUBED) 149 MG/DL 70-105 H Novel Coronavirus 2018 [id number] 14:10:00 Test Item Value Reference Range Interpretation Comments Novel Coronavirus Not Detected Not Detected Testing wa s performed 2018 Inhouse (test using the Aptima code = [...] in vitro diagnosti c tests for detection skTYMZ-DxZ-2 vi chase and/or diagnosi s of COVID-19 [...] t in this assay.Perf ormed At: [facility] [address] [place], [place] [id number] Kyle L MD Ph:[phone] COMPREHENSIVE METABOLIC [id number] 17:12:00 Test Item Value Reference Range Interpretation [...] = ALKP) Reference Range Oct 2020 PROTHROMBIN [id number] 16:34:00 Test Item Value Reference Range Interpretation [...] 2.5-3.5recurren t systemic emboli sm. THROMBOPLASTIN TIME [id number] 16:34:00 Test Item Value Reference Range Interpretation Comments THROMBOPLASTIN TIME 27.1 SECONDS 23.8-34.8 N INTERPRE TATIVE PARTIAL (test code = DATA: erapeutic PTT) range: Unfractionated heparin:55 - 80 seconds Argatroban:1.5 to 3 times the basel ine PTT CBC W/AUTO [id number] 16:16:00 Test Item Value Reference Range Interpretation [...] 130 Glucose POC [facility]) [facility][QL] T4, [id number] 00:00:00 Test Item Value Reference Range Interpretation Comments T4, FREE (test 0.6 ng/dl 0.8-1.8 SPECIMEN RECE IVED DATE AND code = T4, FREE) TIME: [id number] [facility][QL] TSH, 3RD [id number] 00:00:00 Test Item Value Reference Range Interpretation Comments TSH; Above High 95.00 {MIU/L} 0.40-4.50 SPECIMEN RE CEIVED Threshold (test DATE AND SHIV E: code = 45838-1) [id number] [place] PhysiciansXRAY Chest 2 views [id number] 14:38:00EXAM: XR CHEST 2 viewsDATE: 07/29/2020 14:37 [...] recent radiograph, as describedabove. --Read by: Mali Rivsa MDDictated Date/time: 07/29/20 14:57Electronically Signed by: Mali Rivas MD 07/29/2015:02FINAL REPORTUT PhysiciansGlucose (Point of Care In Office)2020-07-23 09:05:00 Test Item Value Reference Range Interpretation Comments Glucose POC Lifescan (test code = 158 A Glucose POC [facility]) FL PhysiciansIL Parathyroid SPECT [id number] 10:55:00PROCEDURE INFORMATION:Exam: NM Parathyroid, Planar And SPECTExam [...] the chest.Bimal Esquivel MD On 06/18/2020 17:18:00; [id number]--Wxie by: Bimal Esquivel MDDictated Date/time: 06/18/20 17:18Electronically [...] 8.6 mg/dL 8.8-10.2 L CA) CBC W/AUTO [id number] 09:21:00 Test Item Value Reference Range Interpretation [...] x10 3/uL 0.0-0.20 N AB HEPATITIS B [id number] 10:16:00 Test Item Value Reference Range Interpretation Comments AB HEPATITIS B SURFACE (test code = REACTIVE NONREACTIVE A HBSAB) AG HEPATITIS B [id number] 10:14:00 Test Item Value Reference Range Interpretation Comments AG HEPATITIS B SURFACE (test NON REACTIVE NONREACTIVE code = HBSAG) AB HEPATITIS B [id number] 10:14:00 Test Item Value Reference Range Interpretation Comments AB HEPATITIS B CORE (test code = NONREACTIVE NONREACTIVE HBCAB) AB HEPATITIS [id number] 10:14:00 Test Item Value Reference Range Interpretation Comments AB HEPATITIS C (test code = NONREACTIVE NONREACTIVE HCVAB) AG HEPATITIS B [id number] 09:14:00 Test Item Value Reference Range Interpretation Comments AG HEPATITIS B SURFACE (test NON REACTIVE NONREACTIVE code = HBSAG) AB HEPATITIS B [id number] 09:14:00 Test Item Value Reference Range Interpretation Comments AB HEPATITIS B CORE (test code = HBCAB) NONREACTIVE AB HEPATITIS [id number] 09:14:00 Test Item Value Reference Range Interpretation Comments AB HEPATITIS C (test code = HCVAB) NONREACTIVE BASIC METABOLIC [id number] 08:38:00 Test Item Value Reference Range Interpretation [...] code = 9.1 mg/dL 8.8-10.2 N CA) [id number] 08:38:00 Test Item Value Reference Range Interpretation Comments PHOSPHOROUS (test code 12.9 mg/dL 2.7-4.5 [facility] fabián Value = PHOS) reported toFirs t Name:LA Last Name:PAULETTE LTS READ BACK AND VERIFIEDby ALEXANDRA WHITFIELD, on 06/05/20, @ 0838. CBC W/AUTO [id number] 08:18:00 Test Item Value Reference Range Interpretation [...] = BA#) 0.04 x10 3/uL 0.0-0.20 N [id number] 07:35:00 Test Item Value Reference Range Interpretation Comments GLUBED (test code = GLUBED) 120 MG/DL 70-105 H BASIC METABOLIC [id number] 20:29:00 Test Item Value Reference Range Interpretation [...] lue code = CREAT) reported Aakash duarte Name:JM higgins Name:CHUY RNRESULTS READ BACK AND VERIFIEDby P.LAB.RS, on , @ 2028. CALCIUM (test code = 8.9 mg/dL 8.8-10.2 N CA) [id number] 16:34:00 Test Item Value Reference Range Interpretation Comments POTASSIUM (test code = K) 5.2 MMOL/L 3.5-5.1 H COVID 19 Asymptomatic IH [id number] 16:01:00 Test Item Value Reference Range Interpretation Comments COVID 19 Asymptomatic IH AG (test NEGATIVE NEGATIVE code = COVNONPUIAG) [id number] 15:58:00 Test Item Value Reference Range Interpretation Comments GLUBED (test code = GLUBED) 100 MG/DL 70-105 N [QL] T4, [id number] 11:15:00 Test Item Value Reference Range Interpretation Comments T4, FREE (test 1.3 ng/dl 0.8-1.8 N SPECIMEN RECE IVED DATE AND code = T4, FREE) TIME: [id number] [facility][QL] TSH, 3RD [id number] 11:15:00 Test Item Value Reference Range Interpretation Comments TSH; Normal (test 3.44 {MIU/L} 0.40-4.50 N SPECIMEN R ECEIVED DATE code = 53276-8) AND TIME: [facility][O] Hemoglobin A1c (in office)2020-03-05 10:57:00 Test Item Value Reference Range Interpretation Comments HEMOGLOBIN A1c (test code = 4548-4) 5.5 [place] PhysiciansGlucose (Point of Care In Office)2020-03-05 10:40:00 Test Item Value Reference Range Interpretation Comments Glucose POC Lifes[facility] (test code = 106 A Glucose POC [facility]) [facility][QLH] TSH, 3RD [id number] 11:28:01 Test Item Value Reference Range Interpretation Comments TSH; Above High Threshold 12.500 {uIU/ml} 0.360-3.740 (test code = 10545-8) [facility]] TSH, 3RD [id number] 18:28:01 Test Item Value Reference Range Interpretation Comments TSH; Above High Threshold 7.540 {uIU/ml} 0.360-3.740 (test code = 61742-7) [place] PhysiciansCOMPREHENSIVE METABOLIC [id number] 08:10:00 Test Item Value Reference Range Interpretation [...] 32-104 N (test code = ALKP) PROTHROMBIN [id number] 08:01:00 Test Item Value Reference Range Interpretation [...] 2.5-3.5recurren t systemic emboli sm. THROMBOPLASTIN TIME [id number] 08:01:00 Test Item Value Reference Range Interpretation Comments THROMBOPLASTIN TIME 32.1 SECONDS 26.0-35.9 N INTERPRE TATIVE PARTIAL (test code = DATA: erapeutic PTT) range: Unfractionated heparin:47 - 71 seconds Argatroban:1.5 to 3 times the basel ine PTT COMPREHENSIVE METABOLIC [id number] 07:55:00 Test Item Value Reference Range Interpretation [...] (test code = ALKP) HGBA1C - GLYCOSYLATED [id number] 07:52:00 Test Item Value Reference Range Interpretation [...] be low 7% meet the goalof the [place] [employer]. No rmal: <5.7Pre-Diabete s: 5.7 6.4Diabetic: >6.5Therapeutic goal for glycemic contro l: <7.0 CBC W/AUTO [id number] 07:45:00 Test Item Value Reference Range Interpretation [...]
[2022-08-20 15:31] LABS: Hematocrit 33.1 % (36.0-45.0); Lymphocytes % 11.3 % (15.3-44.8); RBC Red Blood Cell Count 3.35 M/uL (3.86-4.86)
[2022-08-20 15:41] LABS: MPV 9.8 fL (7.6-11.3)
--- NOTE | 2022-08-20 15:56 | RAD REPORT ---
EXAM DESCRIPTION: RAD - Chest Single View - 08/20/2022 3:11 pm CLINICAL HISTORY: weakness Chest pain. COMPARISON: Chest Single View dated 06/18/2022; Chest Single View dated 12/11/2019; Chest Single View dated 10/07/2019; Chest Single View dated 05/22/2018 FINDINGS: Portable technique limits examination quality. Diffuse COPD is present. Asymmetric interstitial lung opacities are present, greater on the right, li sanjuana related to infection/pneumonia or asymmetric pulmonary edema. The heart is moderately enlarged. No displaced fractures. IMPRESSION: Mild to moderate CHF with asymmetric pulmonary edema versus right-sided interstitial bro nchitis pattern.
[2022-08-20 17:17] LABS: Albumin 3.4 g/dL (3.4-5.0); Bilirubin Direct 0.3 mg/dL (0-0.2); Bilirubin Total 0.6 mg/dL (0.2-1.0); Magnesium 2.1 mg/dL (1.8-2.4); Potassium 4.3 mmol/L (3.5-5.1); Troponin High Sensitivity 456.5 pg/mL (<58.9)
--- NOTE | 2022-08-20 18:05 | ER ---
Nurse's Notes [facility] [place] [place] Name: Danielle Yan Age: 67 yrs Sex: Female : 1955 Arrival Date: 08/20/2022 Time: 14:27 Bed 16 Private MD: Diagnosis: Hypotension, unspecified;Vomiting;Diarrhea, unspecified Presentation: 08/20 14:30 Chief complaint: Patient states: Weakness for 2 days. EMS states: BP 80/50, otherwise ll1 vitals stable. IV L AC with 300 ml bolus given in route. Coronavirus screen: Vaccine status: Patient reports receiving the 2nd dose of the covid vaccine. Client denies travel out of the [place] in the last 14 days. fatigue, Client presents with at least one sign or symptom that may indicate coronavirus-19. Standard/surgical mask placed on the client. Ebola Screen: Patient denies travel to an Ebola-affected area in the 21 days before illness onset. No acute neurological deficit is noted. Initial Sepsis Screen: Does the patient meet any 2 criteria? No. Patient's initial sepsis screen is negative. Does the patient have a suspected source of infection? No. Patient's initial sepsis screen is negative. Risk Assessment: Do you want to hurt yourself or someone else? Patient reports no desire to harm self or others. Onset of symptoms was August 18, 2022. 14:30 Method Of Arrival: EMS ll1 14:30 Acuity: [place] 2 ll1 17:00 The patients blood glucose was checked before arriving to the hospital and was found to ll1 be normal. Triage Assessment: 14:33 The onset of the patients symptoms was more than six hours ago. General: Appears ll1 uncomfortable, ill, Behavior is cooperative, appropriate for age. Pain: Denies pain. Neuro: Reports weakness. 18:50 The onset of the patients symptoms was more than six hours ago. ll1 08/21 00:01 The onset of the patients symptoms was August 21, 2022 at 00:01. ha1 Stroke Activation: Symptom onset > 6 hours Physician: Stroke Attending; Name: ; Notified At: ; Arrived At: Physician: Chief Stroke Resident; Name: ; Notified At: ; Arrived At: Physician: Stroke Resident; Name: ; Notified At: ; Arrived At: Physician: ED Attending; Name: ; Notified At: ; Arrived At: Physician: ED Resident; Name: ; Notified At: ; Arrived At: Historical: - Allergies: 08/20 14:32 CEPHALOSPORINS; ll1 - PMHx: 14:32 Gout; Dialysis; PERIPHERAL NEUROPATHY; Renal Disease; Hypothyroidism; factor 5 leiden; ll1 Diabetes - NIDDM; Hypertension; - PSHx: 14:32 pacemaker; RUE dialysis graft; ll1 - Immunization history:: Client reports receiving the 2nd dose of the Covid vaccine. - Social history:: Smoking status: Patient denies any tobacco usage or history of. Screenin:33 Abuse screen: Denies threats or abuse. Nutritional screening: No deficits noted. ll1 Tuberculosis screening: No symptoms or risk factors identified. Fall Risk IV access (20 points). Gait- Impaired (20 pts.). Total Sanchez Fall Scale indicates Low Risk Score (25-44 pts). Fall prevention measures have been instituted. Side Rails Up X 2 Placed close to Nursing Station Frequent Obs/Assesments occuring Family Present and informed to notify staff if they need to leave bedside As available Patient and Family Educated on Fall Prevention Program and strategies. Assessment: 14:33 VAN Scoring: Arm Drift: Patients demonstrates NO arm weakness. Patient is VAN Negative. ll1 Visual Disturbance: No visual disturbance noted. TNKase (Tenecteplase) Screening: Contraindications: Patient reports onset of signs and symptoms of stroke greater than 6 hours ago:. 15:24 Reassessment: No changes from previously documented assessment. refused blood cultures ll1 and lactate. C. Page informed. 16:15 Reassessment: No changes from previously documented assessment. Patient and/or family ll1 updated on plan of care and expected duration. Pain level reassessed. 16:56 Reassessment: No changes from previously documented assessment. Patient and/or family ll1 updated on plan of care and expected duration. Pain level reassessed. 16:59 The patient has not been NPO before screening. The patient is alert, and able to follow ll1 commands. The patient does not exhibit slurred or garbled speech. The patient is not exhibiting difficulty speaking. The patient does not exhibit difficulty understanding words. The patient is able to swallow own secretions with no drooling or need for suction. 18:00 Reassessment: No changes from previously documented assessment. Patient and/or family ll1 updated on plan of care and expected duration. Pain level reassessed. Patient is alert, oriented x 3, equal unlabored respirations, skin warm/dry/pink. 18:49 Patient tolerated one teaspoon of water. No drooling, immediate coughing, gurgling, or ll1 clearing of the throat was noted. The patient tolerated 90mL of water. No drooling, immediate coughing, gurgling, or clearing of the throat was noted. The patient passed the bedside swallow screening. Oral medications may be given as ordered. Contact Physician for further diet orders. 18:50 Provider notified of bedside swallow screening results: Isreal BIANCHI. ll1 19:30 General: Appears uncomfortable, Behavior is calm, cooperative. Pain: Denies pain. ha1 Neuro: Level of Consciousness is awake, alert, obeys commands, Oriented to person, place, time, situation. Cardiovascular: Reports heart valve replacement surgery performed at other hospital and it is causing low blood pressure Heart tones S1 S2 present Capillary refill < 3 seconds Patient's skin is warm and dry. Rhythm is sinus bradycardia. 20:30 Reassessment: Patient and/or family updated on plan of care and expected duration. Pain ha1 level reassessed. Patient is alert, oriented x 3, equal unlabored respirations, skin warm/dry/pink. 21:30 Reassessment: Patient and/or family updated on plan of care and expected duration. Pain ha1 level reassessed. Patient is alert, oriented x 3, equal unlabored respirations, skin warm/dry/pink. Patient denies pain at this time. 22:30 Reassessment: Patient and/or family updated on plan of care and expected duration. Pain ha1 level reassessed. Patient is alert, oriented x 3, equal unlabored respirations, skin warm/dry/pink. low BP. Physician in shift notified Patient denies pain at this time. 23:30 Reassessment: Patient and/or family updated on plan of care and expected duration. Pain ha1 level reassessed. Patient is alert, oriented x 3, equal unlabored respirations, skin warm/dry/pink. low BP. pt. refused to be admitted. it was explained the importance of treatment. pt. states " I want to leave since my transfer was not approved ". in shift notified. 23:30 General: Isreal Herrera spoke with the patient at bedside. PA explained to the patient that ha1 labs were necessary in order to rule out sepsis and that she would not be transferred without the labs. 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 This Rn explained to the patient that her low blood pressure could be an indication of sepsis, but regardless, her transfer would not be accepted without the labs that were ordered which are ment to rule out sepsis. pt continues to refuse any additional lab work and demanded to leave. This RN attempted multiple times to educate the patient regarding her status and need for additional blood work in order to be transferred. pt continued to get increasingly agitated and demanded to leave. . Vital Signs: 14:30 BP 82 / 60; Pulse 55; Resp 17; Temp 97.6; Pulse Ox 95% on R/A; Pain 0/10; ll1 14:36 BP 86 / 57; Pulse 50; ll1 15:00 BP 78 / 54; Pulse 51; ll1 15:45 BP 80 / 54; Pulse 51; Pulse Ox 95% on R/A; ll1 16:30 BP 82 / 73; Pulse 70; Resp 16; Pulse Ox 97% on R/A; ll1 16:57 BP 86 / 68; Pulse 56; Resp 16; Pulse Ox 96% on R/A; ll1 18:00 BP 65 / 52; Pulse 65; Resp 15; Pulse Ox 93% on R/A; ll1 18:48 BP 75 / 46; Pulse 55; Resp 16; Pulse Ox 92% on R/A; ll1 18:51 BP 79 / 51; Pulse 58; ll1 19:30 BP 77 / 51; Pulse 57; Resp 20 S; Pulse Ox 94% on R/A; ha1 20:30 BP 78 / 50; Pulse 53; Resp 20 S; Pulse Ox 95% on R/A; ha1 21:30 BP 88 / 35; Pulse 58; Resp 20 S; Pulse Ox 95% on R/A; ha1 22:30 BP 85 / 50; Pulse 82; Resp 20 S; Pulse Ox 95% on R/A; ha1 23:30 BP 88 / 50; Pulse 58; Resp 19 S; Pulse Ox 95% on R/A; ha1 NIH Stroke Scale Scores: 16:59 NIHSS Score: 0 ll1 ED Course: 14:27 Patient arrived in ED. ll1 14:30 Brody Tejeda, HENNY is Primary Nurse. ll1 14:32 Triage completed. ll1 14:33 Arm band placed on Patient placed in an exam room, on a stretcher. ll1 14:33 Maintain EMS IV. Dressing intact. Good blood return noted. Site clean \\T\\ dry. Gauge \\T\\ ll 1 site: 20 L AC. 14:43 Isreal Herrera PA is PHCP. cp 14:43 Isreal Wilson MD is Attending Physician. cp 15:13 XRAY Chest (1 view) In Process Unspecified. EDMS 17:01 Patient has correct armband on for positive identification. Bed in low position. Call ll1 light in reach. Side rails up X2. Client placed on continuous cardiac and pulse oximetry monitoring. NIBP monitoring applied. conveyor monitor on. 17:20 Notified Nurse Practitioner and/or Physician Evaporator Supervisor of a critical lab result(s), iw troponin 456.5 and creatinine 7.43. 18:50 No provider procedures requiring assistance completed. Patient transferred, IV remains ll1 in place. 21:52 Notified ED physician of vital signs. ld1 22:14 Notified ED physician of vital signs. ha1 Administered Medications: 15:24 Drug: NS 0.9% 1000 ml Route: IV; Rate: 500 ml; Site: left antecubital; ll1 18:51 Follow up: Response: No adverse reaction; IV Status: Completed infusion; IV Intake: ll1 500ml 18:51 Follow up: Response: No adverse reaction; IV Status: Completed infusion; IV Intake: ll1 500ml 22:30 Drug: NS 0.9% 500 ml Route: IV; Rate: bolus; Site: left antecubital; ha1 23:55 Follow up: Response: No adverse reaction; IV Status: Completed infusion; IV Intake: ha1 500ml 23:55 Not Given (Patient Refused): Meropenem 500 mg IV at calculated rate once; (mix in NS ha1 100 mL) Medication: 14:33 VIS not applicable for this client. ll1 Point of Care Testin:50 n/a ll1 Ranges: Intake: 18:51 IV: 500ml; Total: 500ml. ll1 18:51 IV: 500ml; Total: 1000ml. ll1 23:55 IV: 500ml; Total: 1500ml. ha1 Outcome: 18:04 ER care complete, transfer ordered by . cp 23:15 Discharge ordered by . paola 08/21 00:01 Discharged to home via wheelchair, with family. ha1 Condition: stable Discharge instructions given to patient, family, Instructed on discharge instructions, follow up and referral plans. Demonstrated understanding of instructions, follow-up care. 00:02 Patient left the ED. ha1 NIH Stroke Scale - NIH Stroke Score Date: 08/20/2022 Time: 16:59 Total Score = 0 1a. Level of Consciousness (LOC) - 0(Alert) 1b. Level of Consciousness (LOC) (Month \\T\\ Age) - 0(Both) 1c. LOC Commands (Open \\T\\ Closes Eyes/Medical Technicians) - 0(Both) 2. Best Gaze (Lateral Gaze Paresis) - 0(Normal) 3. Visual Field Loss - 0(No visual loss) 4. Facial Palsy - 0(Normal) 5a. Left Arm: Motor (10-second hold) - 0(No drift) 5b. Right Arm: Motor (10-second hold) - 0(No drift) 6a. Left Leg: Motor (5-second hold - always test supine) - 0(No drift) 6b. Right Leg: Motor (5-second hold - always test supine) - 0(No drift) 7. Limb Ataxia (finger/nose \\T\\ heel/pichardo - test with eyes open) - 0(Absent) 8. Sensory Loss (pinprick arms/legs/face) - 0(Normal) 9. Best Language: Aphasia (description/naming/reading) - 0(No aphasia) 10. Dysarthria (speech clarity - read or repeat words) - 0(Normal) 11. Extinction and Inattention (visual/tactile/auditory/spatial/personal) - 0(No abnormality) Initials: ll1 Signatures: Dispatcher [employer] Kelsi Alvarez RN RN iw Page, Corey, PA PA cp Lewis, Lynsay, RN RN ll1 Harmony Hooks RN RN 1 Abril Crawford RN RN 1
--- NOTE | 2022-08-20 18:05 | EDPHYS ---
Physician Documentation [facility] Name: Danielle Yan Age: 67 yrs Sex: Female : 1955 Arrival Date: 08/20/2022 Time: 14:27 Bed 16 Private MD: ED Physician Isreal Wilson HPI: 08/20 15:05 This 67 yrs old Female presents to ER via EMS with complaints of Weakness - low BP. cp 15:05 The patient presents to the emergency department with weakness of the entire body, cp generalized weakness, that is moderate, difficult walking, the patient is generally weak. 15:05 Onset: The symptoms/episode began/occurred 2 day(s) ago. cp 15:05 Associated signs and symptoms: Pertinent positives: nausea, vomiting, diarrhea, cp Pertinent negatives: altered mental status, fever, abdominal pain. Severity of symptoms: in the emergency department the symptoms are unchanged despite home interventions. Patient's baseline: Neuro: alert and fully oriented, Motor: no deficits, Ambulation: walks with assist only, uses walker, Speech: normal. 15:05 Patient reports measuring low blood pressure today with systolic pressures in the 70's cp and diastolic pressures in the 40's. Patient reports systolic blood pressure is chronically less than 90 and that she missed dialysis yesterday and was last dialyzed Wednesday. Grain Farmer is DR Tomlin \T\[facility]. Historical: - Allergies: 14:32 CEPHALOSPORINS; ll1 - PMHx: 14:32 Gout; Dialysis; PERIPHERAL NEUROPATHY; Renal Disease; Hypothyroidism; factor 5 leiden; ll1 Diabetes - NIDDM; Hypertension; - PSHx: 14:32 pacemaker; RUE dialysis graft; ll1 - Immunization history:: Client reports receiving the 2nd dose of the Covid vaccine. - Social history:: Smoking status: Patient denies any tobacco usage or history of. ROS: 15:10 Constitutional: Negative for body aches, chills, fever, poor PO intake. cp 15:10 Cardiovascular: Negative for chest pain, palpitations. cp 15:10 Respiratory: Negative for cough, shortness of breath, wheezing. 15:10 Abdomen/GI: Negative for abdominal pain, black/tarry stool, rectal bleeding. 15:10 Eyes: Negative for injury, pain, redness, and discharge. cp 15:10 ENT: Negative for drainage from ear(s), ear pain, sore throat, difficulty swallowing, cp difficulty handling secretions. 15:10 Skin: Negative for cellulitis, rash. 15:10 Neuro: Positive for weakness, Negative for altered mental status, headache, syncope. 15:10 All other systems are negative. Exam: 15:15 Constitutional: The patient appears in no acute distress, alert, awake, cp non-diaphoretic, non-toxic, well developed, well nourished. 15:15 Head/Face: Normocephalic, atraumatic. cp 15:15 Eyes: Periorbital structures: appear normal, Pupils: equal, round, and reactive to light and accomodation, Extraocular movements: intact throughout, Conjunctiva: normal, no exudate, no injection, Sclera: no appreciated abnormality, Lids and lashes: appear normal, bilaterally. 15:15 ENT: External ear(s): are unremarkable, Nose: is normal, Mouth: Lips: moist, Oral mucosa: moist, Posterior pharynx: Airway: no evidence of obstruction, patent. 15:15 Neck: ROM/movement: is normal, is supple, without pain, no range of motions limitations, no meningismus. 15:15 Chest/axilla: Inspection: normal. 15:15 Cardiovascular: Rate: bradycardic, Rhythm: regular, Edema: ankle edema, that is mild, JVD: is not appreciated. 15:15 Respiratory: the patient does not display signs of respiratory distress, Respirations: normal, no use of accessory muscles, no retractions, labored breathing, is not present, Breath sounds: decreased breath sounds, that are mild, throughout, stridor, is not appreciated, wheezing: is not appreciated. 15:15 Abdomen/GI: Inspection: abdomen appears normal, Bowel sounds: active, all quadrants, Palpation: abdomen is soft and non-tender, in all quadrants. 15:15 Back: pain, is absent, ROM is normal. 15:15 Neuro: Orientation: to person, place \T\ time. Mentation: is normal, Motor: moves all fours, general weakness with no focal deficits, Sensation: no obvious gross deficits, Gait: not tested. 15:38 ECG was reviewed by the Attending Physician. cp Vital Signs: 14:30 BP 82 / 60; Pulse 55; Resp 17; Temp 97.6; Pulse Ox 95% on R/A; Pain 0/10; ll1 14:36 BP 86 / 57; Pulse 50; ll1 15:00 BP 78 / 54; Pulse 51; ll1 15:45 BP 80 / 54; Pulse 51; Pulse Ox 95% on R/A; ll1 16:30 BP 82 / 73; Pulse 70; Resp 16; Pulse Ox 97% on R/A; ll1 16:57 BP 86 / 68; Pulse 56; Resp 16; Pulse Ox 96% on R/A; ll1 18:00 BP 65 / 52; Pulse 65; Resp 15; Pulse Ox 93% on R/A; ll1 18:48 BP 75 / 46; Pulse 55; Resp 16; Pulse Ox 92% on R/A; ll1 18:51 BP 79 / 51; Pulse 58; ll1 19:30 BP 77 / 51; Pulse 57; Resp 20 S; Pulse Ox 94% on R/A; ha1 20:30 BP 78 / 50; Pulse 53; Resp 20 S; Pulse Ox 95% on R/A; ha1 21:30 BP 88 / 35; Pulse 58; Resp 20 S; Pulse Ox 95% on R/A; ha1 22:30 BP 85 / 50; Pulse 82; Resp 20 S; Pulse Ox 95% on R/A; ha1 23:30 BP 88 / 50; Pulse 58; Resp 19 S; Pulse Ox 95% on R/A; ha1 NIH Stroke Scale Scores: 16:59 NIHSS Score: 0 ll1 MDM: 14:45 Patient medically screened. cp 23:11 Data reviewed: vital signs, nurses notes, lab test result(s), EKG, radiologic studies, cp plain films. ED course: Discussed results of today to include labs EKG and chest x-ray. Patient refused CT scan of abdomen and reiterated that she does not believe she has an obstruction or any abdominal infection. After multiple attempts to transfer to [facility] in the [facility] and [facility], I received confirmation that transfer was denied by racing secretary and so I discussed with patient admission here to our facility for continued care, monitoring of blood pressure and to consult her primary mexican food machine tender Dr. Borrego. After informing patient of the denial of transfer and recommendation of admission patient declines at this point for admission and requests discharge to home to contact her primary special assets officer in the morning. I informed patient I do not recommend this as blood pressure has remained hypotensive and troponin and BNP were both elevated. Patient is able to make informed consent and continues to request discharge to home. 08/20 15: Order name: Basic Metabolic Panel; Complete Time: 17:44 cp 12 17:45 Interpretation: Normal except: NA 134; CL 97; ANION GAP 16.3; GLUC 130; BUN 72; CRE cp 7.43; GFR 6. 08/20 15: Order name: CBC with Diff; Complete Time: 16:08 cp 12 16:08 Interpretation: Normal except: RBC 3.35; HGB 10.8; HCT 33.1; RDW 18.5; KELLEY% 78.8; LYM% cp 11.3; PLT 105. 08/20 15: Order name: LFT's; Complete Time: 17:44 cp 08/20 17:45 Interpretation: Normal except: AST 5; BILID 0.3; GLOB 3.6; A/G 0.9. cp / 15:01 Order name: Magnesium; Complete Time: 17:44 cp 08/20 15:01 Order name: NT PRO-BNP; Complete Time: 17:44 cp 08/20 17:45 Interpretation: Abnormal: NT PRO-BNP 04891. cp 08/20 15:01 Order name: PT-INR; Complete Time: 16:08 cp 08/20 15:01 Order name: Troponin HS; Complete Time: 17:44 cp 08/20 17:45 Interpretation: Abnormal: Troponin HS 456.5. cp 08/20 15:01 Order name: XRAY Chest (1 view); Complete Time: 16:08 cp 08/20 15:01 Order name: Procalcitonin; Complete Time: 17:44 cp 12 18:41 Order name: COVID-19/FLU A+B; Complete Time: 22:11 cp 08/20 15:01 Order name: EKG; Complete Time: 15:01 cp 08/20 15:01 Order name: Cardiac monitoring; Complete Time: 15:36 cp 08/20 15:01 Order name: EKG - Nurse/Tech; Complete Time: 15:36 cp 08/20 15:01 Order name: IV Saline Lock; Complete Time: 15:09 cp 08/20 15:01 Order name: Labs collected and sent; Complete Time: 15:09 cp 08/20 15:01 Order name: O2 Per Protocol; Complete Time: 15:09 cp 08/20 15:01 Order name: O2 Sat Monitoring; Complete Time: 15:09 cp 08/20 15:48 Order name: Labs - recollect needed: Green top; Complete Time: 16:39 em1 EC:38 Rate is 58 beats/min. Rhythm is irregular. QRS interval is prolonged at 174 msec. QT cp interval is prolonged at 552 msec. T waves are Inverted in lead aVR. Interpreted by me. Reviewed by me. Administered Medications: 15:24 Drug: NS 0.9% 1000 ml Route: IV; Rate: 500 ml; Site: left antecubital; ll1 18:51 Follow up: Response: No adverse reaction; IV Status: Completed infusion; IV Intake: ll1 500ml 18:51 Follow up: Response: No adverse reaction; IV Status: Completed infusion; IV Intake: ll1 500ml 22:30 Drug: NS 0.9% 500 ml Route: IV; Rate: bolus; Site: left antecubital; ha1 23:55 Follow up: Response: No adverse reaction; IV Status: Completed infusion; IV Intake: ha1 500ml 23:55 Not Given (Patient Refused): Meropenem 500 mg IV at calculated rate once; (mix in NS ha1 100 mL) Point of Care Testin:50 n/a ll1 Ranges: Critical Glucose Levels:Adult <50 mg/dl or >400 mg/dl <40 mg/dl or >180 mg/dl Disposition Summary: 08/20/22 23:15 Discharge Ordered Location: Home cp Problem: an ongoing problem(08/20/22 23:15) cp Symptoms: are unchanged(08/20/22 23:15) cp Condition: Serious(08/20/22 23:15) cp Diagnosis - Hypotension, unspecified(08/20/22 23:15) cp - Vomiting cp - Diarrhea, unspecified cp Followup: cp - With: Private Physician - When: Tomorrow - Reason: Recheck today's complaints Discharge Instructions: - Discharge Summary Sheet cp - Food Choices to Help Relieve Diarrhea, Adult cp - Diarrhea, Adult cp - Hypotension cp - Vomiting, Adult cp Forms: - Medication Reconciliation Form cp - Thank You Letter cp - Antibiotic Education cp - Prescription Opioid Use cp NIH Stroke Scale - NIH Stroke Score Date: 08/20/2022 Time: 16:59 Total Score = 0 1a. Level of Consciousness (LOC) - 0(Alert) 1b. Level of Consciousness (LOC) (Month \T\ Age) - 0(Both) 1c. LOC Commands (Open \T\ Closes Eyes/Bottle Tester) - 0(Both) 2. Best Gaze (Lateral Gaze Paresis) - 0(Normal) 3. Visual Field Loss - 0(No visual loss) 4. Facial Palsy - 0(Normal) 5a. Left Arm: Motor (10-second hold) - 0(No drift) 5b. Right Arm: Motor (10-second hold) - 0(No drift) 6a. Left Leg: Motor (5-second hold - always test supine) - 0(No drift) 6b. Right Leg: Motor (5-second hold - always test supine) - 0(No drift) 7. Limb Ataxia (finger/nose \T\ heel/pichardo - test with eyes open) - 0(Absent) 8. Sensory Loss (pinprick arms/legs/face) - 0(Normal) 9. Best Language: Aphasia (description/naming/reading) - 0(No aphasia) 10. Dysarthria (speech clarity - read or repeat words) - 0(Normal) 11. Extinction and Inattention (visual/tactile/auditory/spatial/personal) - 0(No abnormality) Initials: ll1 Addendum: 08/23/2022 08:04 Co-signature as Attending Physician, Isreal Wilson MD I agree with the [facility] assessment and plan of care. Signatures: Dispatcher [employer] Isreal Mckeon MD MD cha Martinez, Eric 1 Isreal Herrera PA PA Brody Carias RN RN 1 Abril Crawford RN RN 1 Corrections: (The following items were deleted from the chart) 12 16:59 16:22 Abdomen Pelvis Wo Con+CT.RAD.BRZ ordered. [facility] 17:33 15:01 LACTATE+C.LAB.BRZ ordered. [facility] 17:35 15:01 BLOOD CULTURE*+BA.LAB.BRZ ordered. [facility] 22:45 15:05 Patient reports measuring low blood pressure today with systolic cp pressures in the 70's and diastolic pressures in the 40's. Patient reports systolic blood pressure is chronically less than 90 and that she missed dialysis yesterday and was last dialyzed Wednesday. cp 23: 18:04 Doctor cp cp 23: 18:04 [facility] cp cp 23: 18:04 Higher level of care cp cp 23: 18:04 Stable cp cp : 18:04 new cp cp : 18:04 have improved cp cp 23: 18:04 Hypotension, unspecified cp cp
[2022-08-20 21:26] LABS: SARS-COV-2 RT PCR NEGATIVE (NEGATIVE)
[2022-08-20] MEDS ORDERED: NA CHLORIDE 0.9% 500 ML ONE (22:15)
[2022-08-21 00:26] VITALS: TEMP 97.6
[2022-08-21 00:38] VITALS: O2SAT 95
[2022-08-21 00:41] VITALS: BP 88/50
--- NOTE | 2022-08-21 07:51 | EKG ---
Test Date: 2022-08-20 Test Time: 15:33:22 Wedding Florist: LML MEASUREMENT RESULTS: Intervals: Rate: 58 MO: QRSD: 174 QT: 552 QTc: 541 [place]: P: 32 MO: QRS: 245 T: 61 INTERPRETIVE STATEMENTS: Undetermined rhythm Nonspecific intraventricular block Possible Lateral infarct, age undetermined Inferior infarct, age undetermined Abnormal ECG Compared to ECG 06/18/2022 14:00:24 Myocardial infarct finding now present Ventricular-paced complex(es) or rhythm no longer present Electronically Signed On 08-21-22 07:48:58 [employer] BPM DEVELOPER by Osman Gaviria
== END 2022-08-21 00:02 | disposition home or self-care (01) ==
LOC: ER 14:11
DX: I95.9 Hypotension, unspecified (principal); R11.10 Vomiting, unspecified; R19.7 Diarrhea, unspecified; R53.1 Weakness; I10 Essential (primary) hypertension; Z20.822 Contact with and (suspected) exposure to COVID-19; Z88.3 Allergy status to other anti-infective agents; Z95.0 Presence of cardiac pacemaker
CPT/HCPCS: 96361; 93005; 85025; 80048; 36415; 83735; 85610; 80076; 84484; 84145; 83880; 0240U; 71045; 96360; 99284; J7040